=== PATIENT | male | born 1965 | race Caucasian/White ===

== ENCOUNTER → 2016-11-26 | Outpatient (CLI) | payer BC ==
[~2016-11-26] MED LIST: AMLO-114 PO; ASPI-461 PO; CLOP1TAB15 PO; METO100T14 PO; ZNTT/150 PO; ZOLP10TA PO
--- NOTE | 2016-11-26 16:56 | DIAGNOSTIC IMAGING REPORT ---
VENOUS DOPPLER LW EXT BILAT HISTORY: Pain. Edema. BILATERAL CALF PAIN; SWELLING; HX PE COMPARISON STUDY: None. FINDINGS: There is normal compressibility, flow, and augmentation within the bilateral lower extremity deep venous systems. IMPRESSION: No DVT within the right or left lower extremity. The above report was generated using voice recognition software. It may contain grammatical, syntax or spelling errors. Electronically signed by: Lousi Moore M.D. 11/26/2016 4:55 PM Dictated Date/Time: 11/26/2016 4:54 PM
== END | disposition home or self-care (01) ==
LOC: C.ULTR 16:21
PROVIDERS: ATTEND Family Medicine
DX: M79.661 Pain in right lower leg (principal); R10.13 Epigastric pain; R19.8 Other specified symptoms and signs involving the digestive system and abdomen

== ENCOUNTER → 2017-01-06 | Outpatient (CLI) | payer BC ==
--- NOTE | 2017-01-06 08:23 | DIAGNOSTIC IMAGING REPORT ---
ULTRASOUND ABDOMEN COMPLETE CLINICAL HISTORY: Generalized abdominal pain. COMPARISON STUDY: Abdominal ultrasound dated 06/27/2014. TECHNIQUE: Real-time, grayscale, and color flow sonography of the abdomen was performed. Images are reviewed in the transverse and longitudinal planes. FINDINGS: Liver: The liver is top normal in size and demonstrates heterogeneously increased echotexture consistent with hepatic steatosis. Fatty sparing is seen adjacent to gallbladder fossa. There is no intrahepatic biliary ductal dilatation. The main portal vein is patent. Gallbladder: The gallbladder is normal in appearance. No gallstones are identified. There is no gallbladder wall thickening or pericholecystic fluid. A sonographic Martinez's sign is reportedly absent. The common bile duct measures up to 0.5 cm in diameter. Pancreas: Visualized portions of the pancreatic head are normal in appearance. The majority of the pancreas was not well visualized. Spleen: The spleen is normal in size and echotexture, measuring lung 0.9 cm in length. Kidneys: The kidneys are normal in size and echotexture. There is no hydronephrosis. The right kidney measures 12.5 cm in length and the left kidney measures 14.8 cm in length. No shadowing calculi are identified. Abdominal vasculature: Visualized portions of the abdominal aorta are normal in caliber. Ascites: None. IMPRESSION: 1. No acute sonographic abnormality is identified. 2. Hepatic steatosis. Electronically signed by: Terrence Chatman M.D. 01/06/2017 8:22 AM Dictated Date/Time: 01/06/2017 8:20 AM
== END | disposition home or self-care (01) ==
LOC: C.ULTR 06:41
PROVIDERS: ATTEND Family Medicine
DX: R10.13 Epigastric pain (principal); R19.8 Other specified symptoms and signs involving the digestive system and abdomen; K76.0 Fatty (change of) liver, not elsewhere classified

== ENCOUNTER 2017-03-27 12:51 | Observation (INO) | payer BC, OTHER ==
[~2017-03-27] VITALS: Ht 180.3 cm; Wt 114.8 kg
[2017-03-27] MEDS ORDERED: MoRPHine SULFATE 4 MG/ML 1 ML CARP\\VIAL IV STA (13:27)
--- NOTE | 2017-03-27 13:32 | EMERGENCY ROOM VISIT NOTE ---
History First contact with patient: 13:18 Chief Complaint: CARDIAC ASSESSMENT Stated Complaint: CHEST PAIN Nursing Triage Summary: C/o chest pain that started [employer]. Pt was at his PCP with increased CP and URQ pain with palpation. Pt has hx of OK in 2010 with stents placed. Pt reports that he has chronic chest pain. Pt received total of 324mg ASA and 1 Nitro spray. Per EMS pain reduced from 4 to a 2 after the nitro tx. pt reports pain is still at a 2. Pt is alert and oriented. History of Present Illness The patient is a 51 year old male who presents to the Emergency Room via private vehicle accompanied by female with complaints of "chest pain". The patient states that he has had chronic chest pain for many years status post OK. He states that he follows locally with Dr. Whitfield of cardiology. He states that for the past 1-2 weeks the chronic chest pain which is in the left upper quadrant/left inferior chest that radiates to his left scapular region has increased. It is worse with exertion. Today he went to see his family doctor and they referred him here given his history, as well as his additional right upper quadrant abdominal pain. Patient was given full-strength aspirin, and sublingual nitroglycerin which reduced his pain from a 4-2 in transport. He denies any shortness of breath with this. There is no inspiratory chest pain. He did undergo a cardiac catheterization back in November at all to the hospital which was clean as per patient. Review of Systems A complete 10-point Review of Systems was discussed with the patient, with pertinent positives and negatives listed in the History of Present Illness. All remaining Review of Systems questions can be considered negative unless otherwise specified. Past Medical/Surgical History Medical Problems: (1) Benign hypertension (2) Cardiac arrest (3) Cardiac catheterization (4) chest pain rule out (5) Heart disease (6) History of - myocardial infarction (7) Pulmonary embolism (8) Stented coronary artery Family History Cancer Heart disease Hypertension Social History Smoking Status: Never Smoker Alcohol Use: none Drug Use: none Marital Status: Housing Status: lives with family Occupation Status: employed Current/Historical Medications Scheduled Aspirin (Aspirin), 81 MG PO QAM Clopidogrel (Plavix), 75 MG PO QAM Metoprolol Tartrate (Lopressor) (Lopressor), 50 MG PO BID Oxycodone Ir (Roxicodone Ir), 20 MG PO QID Zolpidem Tartrate (Ambien), 10 MG PO HS Physical Exam Vital Signs Date Time Temp Pulse Resp B/P (MAP) Pulse Ox O2 Delivery O2 Flow Rate FiO2 03/27/17 16:51 63 15 98 03/27/17 16:36 63 20 96 03/27/17 16:30 168/111 03/27/17 16:24 63 15 151/96 94 Room Air 03/27/17 16:21 62 16 97 03/27/17 16:06 62 17 96 03/27/17 16:00 151/90 03/27/17 15:51 60 18 96 03/27/17 15:36 59 13 96 03/27/17 15:21 59 16 03/27/17 15:06 63 16 94 03/27/17 15:00 146/100 03/27/17 14:51 63 13 94 03/27/17 14:36 63 18 96 03/27/17 14:30 145/91 03/27/17 14:25 142/91 03/27/17 14:25 61 18 142/91 94 Room Air 03/27/17 13:39 65 18 154/99 95 Room Air 03/27/17 13:36 65 19 94 03/27/17 13:31 154/99 03/27/17 13:21 67 14 95 03/27/17 13:06 67 16 95 03/27/17 13:00 64 03/27/17 13:00 170/98 03/27/17 13:00 36.7 66 20 170/98 94 Room Air 03/27/17 13:00 93 Room Air 03/27/17 12:59 167/93 Physical Exam VITAL SIGNS - Vital signs and nursing notes were reviewed. Stable. GENERAL - 51-year-old male appearing his stated age who is in no acute distress. Communicates well with provider and answers questions appropriately. SKIN - Without rashes. HEAD - NC/AT. EYES - Sclera anicteric. EARS - No deformities of external structures noted on gross examination bilaterally. NOSE - Midline and without cyanosis. No epistaxis or purulent drainage noted. MOUTH/OROPHARYNX - Without perioral cyanosis. NECK - Neck with FROM. Supple to palpation. LUNGS - Chest wall symmetric without accessory muscle use, intercostals retractions, or central cyanosis. Normal vesicular breath sounds CTA B/L. No wheezes, rales, or rhonchi appreciated. CARDIAC - RRR with S1/S2. No murmur, rubs, or gallops appreciated. ABDOMEN - Abdominal contour normal without pulsations or visible masses. BS normoactive all four quadrants. palpable masses, hepatosplenomegaly, or ascites noted. Right upper quadrant tenderness noted. EXTREMITIES - No clubbing or peripheral cyanosis. No pretibial edema present. +5 /5 strength noted in UE/LE bilaterally. NEUROLOGIC - Cranial nerves II through XII grossly intact. PSYCH - A&O, and cooperates fully with examiner. Pt is very pleasant and interacts well with examiner. Medical Decision & Procedures ER Provider Diagnostic Interpretation: CHEST ONE VIEW PORTABLE HISTORY: 51 years-old Male chest pain acute atypical chest pain COMPARISON: Portable chest radiograph 12/24/2015 TECHNIQUE: Portable AP view of the chest FINDINGS: Cardiomediastinal and hilar silhouettes are within normal limits. No pneumothorax, pleural effusion, focal airspace consolidation or overt pulmonary edema. Bones of the chest appear grossly intact. Fusion hardware of the lower cervical spine. Degenerative changes are seen within the shoulders. IMPRESSION: No acute process. The above report was generated using voice recognition software. It may contain grammatical, syntax or spelling errors. Electronically signed by: Tanvir Umaña M.D. 03/27/2017 1:52 PM Dictated Date/Time: 03/27/2017 1:50 PM ABDOMINAL ULTRASOUND, RIGHT UPPER QUADRANT HISTORY: Atypical chest pain. COMPARISON: Abdominal ultrasound 06/27/2014. FINDINGS: Pancreas: The pancreas demonstrates a normal echotexture. Liver: The liver is echogenic consistent with fatty change. Gallbladder: No gallbladder wall thickening. No gallstones. CBD: 5 mm. Right kidney: No hydronephrosis. IMPRESSION: 1. Hepatic steatosis. 2. Normal gallbladder. No gallstones. Electronically signed by: Walt Luna M.D. 03/27/2017 2:12 PM Dictated Date/Time: 03/27/2017 2:11 PM Laboratory Results 03/27/17 15:21 Red Blood Count 4.86, Mean Corpuscular Volume 88.9, Mean Corpuscular Hemoglobin 31.7, Mean Corpuscular Hemoglobin Concent 35.6, Mean Platelet Volume 10.2, Neutrophils (%) (Auto) 69.2, Lymphocytes (%) (Auto) 19.0, Monocytes (%) (Auto) 8.1, Eosinophils (%) (Auto) 2.8, Basophils (%) (Auto) 0.4, Neutrophils # (Auto) 6.66, Lymphocytes # (Auto) 1.83, Monocytes # (Auto) 0.78, Eosinophils # (Auto) 0.27, Basophils # (Auto) 0.04 03/27/17 15:21 Test 03/27/17 12:45 03/27/17 15:21 Prothrombin Time 10.8 SECONDS (9.0-12.0) Prothromb Time International Ratio 1.0 (0.9-1.1) Activated Partial Thromboplast Time 24.3 SECONDS (21.0-31.0) Partial Thromboplastin Ratio 0.9 White Blood Count 9.63 K/uL (4.8-10.8) Red Blood Count 4.86 M/uL (4.7-6.1) Hemoglobin 15.4 g/dL (14.0-18.0) Hematocrit 43.2 % (42-52) Mean Corpuscular Volume 88.9 fL (80-100) Mean Corpuscular Hemoglobin 31.7 pg (25-34) Mean Corpuscular Hemoglobin Concent 35.6 g/dl (32-36) Platelet Count 217 K/uL (130-400) Mean Platelet Volume 10.2 fL (7.4-10.4) Neutrophils (%) (Auto) 69.2 % Lymphocytes (%) (Auto) 19.0 % Monocytes (%) (Auto) 8.1 % Eosinophils (%) (Auto) 2.8 % Basophils (%) (Auto) 0.4 % Neutrophils # (Auto) 6.66 K/uL (1.4-6.5) Lymphocytes # (Auto) 1.83 K/uL (1.2-3.4) Monocytes # (Auto) 0.78 K/uL (0.11-0.59) Eosinophils # (Auto) 0.27 K/uL (0-0.5) Basophils # (Auto) 0.04 K/uL (0-0.2) RDW Standard Deviation 43.3 fL (36.4-46.3) RDW Coefficient of Variation 13.4 % (11.5-14.5) Immature Granulocyte % (Auto) 0.5 % Immature Granulocyte # (Auto) 0.05 K/uL (0.00-0.02) D-Dimer 230 ug/L FEU (0-500) Anion Gap 8.0 mmol/L (3-11) Est Creatinine Clear Calc Drug Dose 129.9 ml/min Estimated GFR () 115.8 Estimated GFR (Non- 99.9 BUN/Creatinine Ratio 15.1 (10-20) Calcium Level 8.9 mg/dl (8.5-10.1) Magnesium Level 2.3 mg/dl (1.8-2.4) Total Bilirubin 0.5 mg/dl (0.2-1) Aspartate Amino Transf (AST/SGOT) 26 U/L (15-37) Alanine Aminotransferase (ALT/SGPT) 51 U/L (12-78) Alkaline Phosphatase 90 U/L (45-117) Total Creatine Kinase 95 U/L (39-308) Creatine Kinase MB 1.1 ng/ml (0.5-3.6) Creatine Kinase MB Ratio 1.2 (0-3.0) Total Protein 7.0 gm/dl (6.4-8.2) Albumin 3.8 gm/dl (3.4-5.0) Globulin 3.2 gm/dl (2.5-4.0) Albumin/Globulin Ratio 1.2 (0.9-2) Lipase 134 U/L (73-393) Thyroid Stimulating Hormone (TSH) 1.300 uIu/ml (0.300-4.500) Medications Administered Medications (Trade) Dose Ordered Sig/Marin Route Start Time Stop Time Status Last Admin Dose Admin Morphine Sulfate (MoRPHine SULFATE INJ) 4 mg NOW STAT IV 03/27/17 13:27 03/27/17 13:29 DC 03/27/17 13:37 4 MG Acetaminophen (Tylenol Tab) 650 mg Q4H PRN PO 03/27/17 16:30 04/26/17 16:29 03/27/17 20:41 650 MG Medical Decision Patient was seen and evaluated as above. He presents to us today with a significant cardiac history. He is here with chest pain. Bedside EKG per my interpretation reveals normal sinus rhythm. There is no ectopy or ischemic change. Troponin initially negative. Chest x-ray normal. Blood work reveals no acute process. I believe that further evaluation in the inpatient setting to rule out his chest pain would be appropriate. He had nitro in route which improved his pain. It is somewhat exertional chest pain. He has had asa today and received morphine here. Please refer to further documentation regarding her stay. In evaluation treatment this patient following differential diagnoses were entertained: OK, PE, among others. Impression Primary Impression: Chest pain Departure Information Referrals Elias Lee D.O. (PCP) Patient Instructions [facility]
--- NOTE | 2017-03-27 13:53 | DIAGNOSTIC IMAGING REPORT ---
CHEST ONE VIEW PORTABLE HISTORY: 51 years-old Male chest pain acute atypical chest pain COMPARISON: Portable chest radiograph 12/24/2015 TECHNIQUE: Portable AP view of the chest FINDINGS: Cardiomediastinal and hilar silhouettes are within normal limits. No pneumothorax, pleural effusion, focal airspace consolidation or overt pulmonary edema. Bones of the chest appear grossly intact. Fusion hardware of the lower cervical spine. Degenerative changes are seen within the shoulders. IMPRESSION: No acute process. The above report was generated using voice recognition software. It may contain grammatical, syntax or spelling errors. Electronically signed by: Tanvir Umaña M.D. 03/27/2017 1:52 PM Dictated Date/Time: 03/27/2017 1:50 PM
--- NOTE | 2017-03-27 14:14 | DIAGNOSTIC IMAGING REPORT ---
ABDOMINAL ULTRASOUND, RIGHT UPPER QUADRANT HISTORY: Atypical chest pain. COMPARISON: Abdominal ultrasound 06/27/2014. FINDINGS: Pancreas: The pancreas demonstrates a normal echotexture. Liver: The liver is echogenic consistent with fatty change. Gallbladder: No gallbladder wall thickening. No gallstones. CBD: 5 mm. Right kidney: No hydronephrosis. IMPRESSION: 1. Hepatic steatosis. 2. Normal gallbladder. No gallstones. Electronically signed by: Walt Luna M.D. 03/27/2017 2:12 PM Dictated Date/Time: 03/27/2017 2:11 PM
[2017-03-27 15:11] LABS: PTT PATIENT 24.3 SECONDS (21.0-31.0)
[2017-03-27 15:33] LABS: BASO % 0.4 %; BASO ABS # 0.04 K/uL (0-0.2); EOS % 2.8 %; EOS ABS # 0.27 K/uL (0-0.5); HEMATOCRIT 43.2 % (42-52); HEMOGLOBIN 15.4 g/dL (14.0-18.0); IG# 0.05 K/uL (0.00-0.02); LYMPH ABS # 1.83 K/uL (1.2-3.4); MEAN CELL VOLUME 88.9 fL (80-100); MEAN CORPUSCULAR HEMOGLOBIN 31.7 pg (25-34); MEAN CORPUSCULAR HGB CONC 35.6 g/dl (32-36); MEAN PLATELET VOLUME 10.2 fL (7.4-10.4); MONO % 8.1 %; MONO ABS # 0.78 K/uL (0.11-0.59); NEUT % 69.2 %; NEUT ABS # 6.66 K/uL (1.4-6.5); PLATELET COUNT 217 K/uL (130-400); RED CELL DISTRIBUTION WIDTH CV 13.4 % (11.5-14.5); RED CELL DISTRIBUTION WIDTH SD 43.3 fL (36.4-46.3); WHITE BLOOD COUNT 9.63 K/uL (4.8-10.8)
[2017-03-27 15:49] LABS: ALBUMIN 3.8 gm/dl (3.4-5.0); BLOOD UREA NITROGEN 13 mg/dl (7-18); CALCIUM 8.9 mg/dl (8.5-10.1); CARBON DIOXIDE 24 mmol/L (21-32); CREATININE 0.87 mg/dl (0.60-1.40); GLUCOSE 118 mg/dl (70-99); LIPASE 134 U/L (73-393); POTASSIUM 4.2 mmol/L (3.5-5.1); SODIUM 137 mmol/L (136-145)
[2017-03-27 16:00] LABS: ALKALINE PHOSPHATASE 90 U/L (45-117); ALT/SGPT 51 U/L (12-78); AST/SGOT 26 U/L (15-37); CKMB 1.1 ng/ml (0.5-3.6)
[2017-03-27] MEDS ORDERED: OXYC20TA50 PO (16:18)
[2017-03-27] MEDS ORDERED: METO50TA16 PO (16:18)
[2017-03-27] MEDS ORDERED: ACETAMINOPHEN 325 MG TAB PO PRN (16:30)
[2017-03-27] MEDS ORDERED: ONDANSETRON INJ 2 MG/ML 2 ML VIAL IV PRN (16:30)
[2017-03-27 17:01] VITALS: O2SAT 94; Ht 180.3 cm; Wt 114.8 kg
--- NOTE | 2017-03-27 17:35 | History and Physical ---
History & Physical Date & Time of Service: Mar 27, 2017 at 17:07 Chief Complaint: Chest Pain Primary Care Physician: No Doctor, Assigned History of Present Illness Source: patient, family, hospital records 51 yo male with a history of CAD with h/o AR and cardiac stent, most recent intervention in 2010, presents with ongoing chest pain, epigastric pain. The patient has a long history of non-compliance and poor life style choices. He was admitted in December 2015 for similar presentation with chest pain, he had a negative dobutamine stress test at that time with 81% predicted maximum heart rate. EF was noted to be 55-60%. He was prescribed Lipitor 80mg daily for his dyslipidemia but he has not been taking this medication. He cannot give a good reason, just that he is not good at remembering to take medications. However, he takes his Lopressor, aspirin, Plavix and oxycodone as prescribed. 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 Mir, for a long time, he cannot give a good reason. He says that his chest pain is every day, although it does seem to be gone in the morning and then is worse during the day. Described as a pressure. He does not notice an increase in pain on exertion. However, unsure of how much the patient exerts himself, he does not get regular exercise. He feels that it may be GI related and he takes Margarita seltzer every day, although he gets no pain relief from this, just a lot of gas. He takes Rolaids as well with no relief. He had a GI work up with [facility] that included an EGD over the summer that was reportedly normal, no evidence of any ulcers. At it's worst the pain is 6 out of 10, today it was a 4 out of 10, improved to a 2 out of 10 with nitroglycerin. Sometimes the pain is associated with some diaphoresis. No nausea, no dyspnea. The pain will radiate to his left shoulder and back. In the ED his BP was elevated at 160/110, HR in the 60's, EKG normal, troponin negative and CXR normal. D dimer normal at 230. Past Medical/Surgical History Medical Problems: (1) Benign hypertension Status: Chronic (2) Cardiac arrest Status: Resolved (3) Cardiac catheterization Status: Resolved (4) Heart disease Status: Chronic (5) History of - myocardial infarction Status: Resolved (6) Pulmonary embolism Status: Resolved (7) Stented coronary artery Status: Resolved Family History Cancer Heart disease Hypertension Social History Smoking Status: Never Smoker Drug Use: none Marital Status: Housing status: lives with family Occupational Status: employed Immunizations History of Influenza Vaccine: Unknown History of Tetanus Vaccine?: Unknown Tetanus Immunization Date: Aug 08, 2009 History of Pneumococcal: Unknown History of Hepatitis B Vaccine: Unknown Allergies Coded Allergies: Shellfish (Verified Allergy, Severe, THROAT SWELLS, 03/27/17) Tramadol (Verified Allergy, Severe, HIVES, 03/27/17) SEIZURES Home Medications Scheduled Aspirin (Aspirin), 81 MG PO QAM Clopidogrel (Plavix), 75 MG PO QAM Metoprolol Tartrate (Lopressor) (Lopressor), 50 MG PO BID Oxycodone Hcl (Oxycontin), 20 MG PO QID Zolpidem Tartrate (Ambien), 10 MG PO HS Review of Systems Constitutional: + sweats, No fever, No chills, No weight loss, No weakness, No fatigue, No problem reported Eyes: No worsening of vision, No eye pain, No redness, No discharge, No diplopia, No problem reported ENT: No hearing loss, No unusual epistaxis, No nasal symptoms, No sore throat, No tinnitus, No dental problems, No trouble swallowing, No problem reported Respiratory: No cough, No sputum, No wheezing, No shortness of breath, No dyspnea on exertion, No dyspnea at rest, No hemoptysis, No problem reported Cardiovascular: + chest pain, No orthopnea, No PND, No edema, No claudication, No palpitations, No problem reported Abdomen: No pain, No nausea, No vomiting, No diarrhea, No constipation, No GI bleeding, No problem reported Musculoskeletal: No joint pain, No muscle pain, No swelling, No calf pain, No problem reported Genitourinary - Male: No hematuria, No dysuria, No urinary frequency, No urinary urgency Neurologic: No memory loss, No paralysis, No weakness, No numbness/tingling, No vertigo, No balance problems, No problem reported Psychiatric: No depression symptoms, No anhedonism, No anxiety, No insomnia, No substance abuse, No problem reported Endocrine: No fatigue, No excessive thirst, No excessive urination, No problem reported Hematologic / Lymphatic: No abnormal bleeding/bruising, No clotting problems, No swollen lymph nodes, No night sweats, No problem reported Integumentary: No rash, No itch, No new/changing skin lesions, No color change , No bleeding, No problem reported Allergic / Immunologic: No environmental allergies, No seasonal allergies, No pet sensitivities, No food allergies, No hives, No frequent infections, No poor healing, No prolonged convalescence, No problem reported Physical Exam Vital Signs Date Time Temp Pulse Resp B/P (MAP) Pulse Ox O2 Delivery O2 Flow Rate FiO2 03/27/17 16:24 63 15 151/96 94 Room Air 03/27/17 14:25 61 18 142/91 94 Room Air 03/27/17 13:39 65 18 154/99 95 Room Air 03/27/17 13:00 64 03/27/17 13:00 36.7 66 20 170/98 94 Room Air 03/27/17 13:00 93 Room Air General Appearance: no apparent distress, + obese Head: normocephalic, atraumatic Eyes: normal inspection, EOMI, sclerae normal ENT: normal ENT inspection, hearing grossly normal, pharynx normal Neck: supple, no adenopathy, no JVD, trachea midline Respiratory/Chest: chest non-tender, lungs clear, normal breath sounds, no respiratory distress, no accessory muscle use Cardiovascular: regular rate, rhythm, no edema, no gallop, no JVD, no murmur, normal peripheral pulses Abdomen/GI: normal bowel sounds, non tender, soft, no organomegaly Back: normal inspection, no CVA tenderness, no muscle spasm, normal range of motion Extremities/Musculoskelatal: normal inspection, no calf tenderness, normal capillary refill, no pedal edema, normal range of motion, pelvis stable Neurologic/Psych: primary teaching assistant II-XII nml as tested, no motor/sensory deficits, alert, normal mood/affect, normal reflexes, oriented x 3 Skin: normal color, warm/dry, no rash Lymphatic: no adenopathy Diagnostics Laboratory Results Results Past 24 Hours Test 03/27/17 12:45 03/27/17 15:21 Range/Units Prothrombin Time 10.8 9.0-12.0 SECONDS Prothromb Time International Ratio 1.0 0.9-1.1 Activated Partial Thromboplast Time 24.3 21.0-31.0 SECONDS Partial Thromboplastin Ratio 0.9 White Blood Count 9.63 4.8-10.8 K/uL Red Blood Count 4.86 4.7-6.1 M/uL Hemoglobin 15.4 14.0-18.0 g/dL Hematocrit 43.2 42-52 % Mean Corpuscular Volume 88.9 80-100 fL Mean Corpuscular Hemoglobin 31.7 25-34 pg Mean Corpuscular Hemoglobin Concent 35.6 32-36 g/dl Platelet Count 217 130-400 K/uL Mean Platelet Volume 10.2 7.4-10.4 fL Neutrophils (%) (Auto) 69.2 % Lymphocytes (%) (Auto) 19.0 % Monocytes (%) (Auto) 8.1 % Eosinophils (%) (Auto) 2.8 % Basophils (%) (Auto) 0.4 % Neutrophils # (Auto) 6.66 1.4-6.5 K/uL Lymphocytes # (Auto) 1.83 1.2-3.4 K/uL Monocytes # (Auto) 0.78 0.11-0.59 K/uL Eosinophils # (Auto) 0.27 0-0.5 K/uL Basophils # (Auto) 0.04 0-0.2 K/uL RDW Standard Deviation 43.3 36.4-46.3 fL RDW Coefficient of Variation 13.4 11.5-14.5 % Immature Granulocyte % (Auto) 0.5 % Immature Granulocyte # (Auto) 0.05 0.00-0.02 K/uL D-Dimer 230 0-500 ug/L FEU Sodium Level 137 136-145 mmol/L Potassium Level 4.2 3.5-5.1 mmol/L Chloride Level 104 98-107 mmol/L Carbon Dioxide Level 24 21-32 mmol/L Anion Gap 8.0 3-11 mmol/L Blood Urea Nitrogen 13 7-18 mg/dl Creatinine 0.87 0.60-1.40 mg/dl Est Creatinine Clear Calc Drug Dose 129.9 ml/min Estimated GFR () 115.8 Estimated GFR (Non- 99.9 BUN/Creatinine Ratio 15.1 10-20 Random Glucose 118 70-99 mg/dl Calcium Level 8.9 8.5-10.1 mg/dl Magnesium Level 2.3 1.8-2.4 mg/dl Total Bilirubin 0.5 0.2-1 mg/dl Aspartate Amino Transf (AST/SGOT) 26 15-37 U/L Alanine Aminotransferase (ALT/SGPT) 51 12-78 U/L Alkaline Phosphatase 90 45-117 U/L Total Creatine Kinase 95 39-308 U/L Creatine Kinase MB 1.1 0.5-3.6 ng/ml Creatine Kinase MB Ratio 1.2 0-3.0 Troponin I < 0.015 0-0.045 ng/ml Total Protein 7.0 6.4-8.2 gm/dl Albumin 3.8 3.4-5.0 gm/dl Globulin 3.2 2.5-4.0 gm/dl Albumin/Globulin Ratio 1.2 0.9-2 Lipase 134 73-393 U/L Thyroid Stimulating Hormone (TSH) 1.300 0.300-4.500 uIu/ml CXR normal Normal EKG Impression Assessment and Plan 51 yo male with chronic chest pain, h/o AR and stents, here with worsening chest pain - Chest pain, epigastric pain unclear etiology, certainly could be chronic angina, do not feel he has unstable angina at this time will observe on tele, cycle enzymes, repeat EKG in the AM ask Dr. Mir for recommendations asked patient if he had taken Ranexa before, he thinks he might have, could have had a side effect? could consider non-cardiac cause such as GERD, PUD had a normal EGD in 2017 when he had similar symptoms, GB ultrasound here was normal was previously on Zantac and PPI but told to stop by GI when EGD was normal - HTN: poorly controlled, says he used to take two BP medications but was reduced to just Lopressor he says he felt better on two BP medications will give Lisinopril 20mg now, follow pressures should likely be discharged on Lopressor plus a second agent, close PCP follow up - Dyslipidemia: markedly elevated total cholesterol and triglycerides in the past non-compliant with statin therapy will check lipid panel in the AM with direct LDL since calculated LDL has been inaccurate in the past - h/o CAD with stenting: continue aspirin and Plavix - h/o PE: d dimer normal at 230 Level of Care Telemetry Resuscitation Status FULL RESUSCITATION VTE Prophylaxis VTE Risk Assessment Done? Y/N: Yes Risk Level: Low Given or contraindicated: Enoxaparin (Lovenox)SQ Additional Copies To Elias Lee D.O.; Moses Mir, DO
[2017-03-27 17:51] VITALS: O2SAT 97
[2017-03-27] MEDS ORDERED: LISINOPRIL 20 MG TAB PO STA (18:38)
[2017-03-27 19:30] VITALS: BP_SYST 163; BP_SYST 169; BP_DIAS 112; BP_DIAS 96; PULSE 57; TEMP 36.8; O2SAT 97
[2017-03-27] MEDS ORDERED: IV FLUIDS COMPLETED PRN (20:30)
[2017-03-27] MEDS: METOPROLOL TARTRATE 50 MG TAB PO SCH (20:36)
[2017-03-27] MEDS: ZOLPIDEM TARTRATE 10 MG TAB PO SCH ×2 (21:00→23:45)
[2017-03-27 22:01] VITALS: BP 155/90
[2017-03-27] MEDS ORDERED: OXYC1TAB3 PO (22:38)
[2017-03-27] MEDS: OXYCODONE HCL IR 5 MG TAB (IMMEDIATE RELEASE) PO SCH (23:45)
[2017-03-27 23:48] VITALS: BP 157/94; PULSE 58; TEMP 36.7; O2SAT 96
[2017-03-28 05:09] VITALS: BP 125/86; PULSE 56; TEMP 36.4; O2SAT 96
[2017-03-28 06:50] LABS: CHOLESTEROL 217 mg/dl (0-200); LDL CHOLESTEROL (DIRECT) 132 mg/dl
[2017-03-28 07:37] VITALS: BP 132/83; PULSE 58; TEMP 36.7; O2SAT 95
[2017-03-28] MEDS: OXYCODONE HCL IR 5 MG TAB (IMMEDIATE RELEASE) PO SCH ×3 (08:00→13:05)
[2017-03-28] MEDS: METOPROLOL TARTRATE 50 MG TAB PO SCH (08:20)
[2017-03-28] MEDS ORDERED: ENOXAPARIN 40 MG/0.4 ML SYR SQ SCH (09:00)
[2017-03-28] MEDS ORDERED: LISINOPRIL 20 MG TAB PO SCH (09:00)
[2017-03-28] MEDS ORDERED: CLOPIDOGREL BISULFATE 75 MG TAB PO SCH (09:00)
[2017-03-28] MEDS ORDERED: ASPIRIN 81 MG ECTAB PO SCH (09:00)
[2017-03-28] MEDS ORDERED: SUCRALFATE 1 GM/10 ML UDC PO ONE (09:59)
[2017-03-28] MEDS ORDERED: LSN20 PO (10:05)
[2017-03-28] MEDS ORDERED: SUCR1TAB29 PO (10:06)
--- NOTE | 2017-03-28 10:20 | CARDIOLOGY CONSULTATION ---
DATE OF CONSULTATION: 03/28/2017 DATE OF CONSULTATION: 03/28/2017 REQUESTING: Be Lewis. MELTER ASSISTANT: Moses Mir DO, [facility] Cardiology. REASON FOR CONSULTATION: Chest discomfort, epigastric discomfort in a patient with coronary artery disease. HISTORY OF PRESENT ILLNESS: Kareem was admitted to the hospital with what he describes as epigastric and left upper quadrant discomfort. It has been relatively constant. He does note if he takes Tums or Rolaids or Maalox that he belches a lot and it does improve slightly. It does not completely go away. It is not made worse with activity. There is no radiation to his neck, jaw, back or arm. He is not diaphoretic with it. He notes a little bit of nauseousness associated with it. Denies any presyncope, syncope, palpitations, lightheadedness, dizziness, lower extremity edema or symptoms of claudication. Denies any fevers, chills, sweats, cough, productive sputum. His appetite and weight have been stable. He does note that eating makes it better and then about 30 minutes to an hour after he eats it tends to get worse. It also sounds like he eats foods that is spicy including wing and hamburgers and other foods that is not heart healthy nor appropriate for esophageal reflux disease. He notes he had similar discomfort in November of last year, he was admitted to [facility] where he underwent cardiac catheterization which according to him revealed that his stents were patent and there was no significant change from his prior catheterization (catheterization by Gurvinder Sorensen) and subsequently underwent endoscopy by Dr. Shoemaker for which there were no significant abnormalities according to the patient. The rest of review of systems otherwise negative. PAST MEDICAL HISTORY: 1. Chronic chest pain syndrome thought to be noncardiac in etiology. 2. Coronary artery disease status post T stenting involving the LAD and diagonal in [place] in 2006. 3. Late stent thrombosis of the LAD diagonal 01/20/2012 with initially placed first generation Cypher drug-eluting stent. 4. Cardiac arrest x2 at the time of his NH January 2012. 5. Placement of a Xience drug-eluting stent in D1 with a patent LAD stent January 2012 and according to the patient again November 2016. 6. Negative stress test for ischemia May 2013 and again December 2015. 7. Negative EGD. 8. GERD. SOCIAL HISTORY: Stopped smoking January 2012, having smoked half a pack to a pack of cigarettes a day for 20 years. Denies any alcohol. He is . 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 ALLERGIES: SHELLFISH, BEATRICE INHIBITORS caused a cough, Benicar caused muscle cramps. MEDICATIONS: Reviewed in electronic medical record. FAMILY HISTORY: Dad of cancer. Mom of cancer. Has a brother who of a drug overdose. PHYSICAL EXAMINATION: GENERAL: He is awake, alert, oriented x3. He is in no acute distress. She is a well-appearing male who looks older than his stated age. VITAL SIGNS: Heart rate 58, respirations 18, blood pressure 132/83, sat 95% on room air. HEAD, EYES, EARS, NOSE, AND THROAT: 2+ carotid upstrokes. No evidence of carotid bruits. Jugular venous pressure appeared normal. Sclerae is anicteric. Hearing is normal. LUNGS: Clear to auscultation bilaterally. No rales, rhonchi or wheezing. HEART: Regular rate and rhythm. No appreciable murmurs, rubs or gallops. ABDOMEN: Soft, nontender, nondistended. Positive bowel sounds. EXTREMITIES: No clubbing, cyanosis or edema. PSYCHIATRIC: His affect appeared appropriate. Two EKGs here normal sinus rhythm. Normal ECG. LABORATORY STUDIES: His troponins are negative x3. His complete metabolic profile was normal. His lipase was normal. His triglycerides are 316, total cholesterol 217, LDL 132. His HDL was 37. His CBC was normal. Coags are normal. Chest x-ray no active disease. Ultrasound of his gallbladder was negative. IMPRESSIONS: Noncardiac chest pain which sounds more like esophageal reflux disease. It is not worse with activity and it has been relatively constant. One would expect if he is having progressive anginal symptoms that he should spill troponin at this point and have an abnormal EKG. Additionally, he underwent cardiac catheterization in November 2016 at [facility] for similar symptoms and according to the patient his stents were patent. In addition, his symptoms get better with eating and then get worse than 30 minutes to an hour later, which is consistent with triggering acid excretion into his stomach. As was discussed with the hospitalist service, I would reinitiate his Protonix 40 mg daily and add Zantac 150 mg b.i.d. He may need a followup with GI to consider a pH probe. With regards to cardiovascular his known coronary disease and cardiovascular risk he needs aggressive risk factor modification including aspirin and beta blockers. According to my note BEATRICE inhibitors caused a cough and Benicar caused muscle cramps. If that is the case, I would stop his inpatient lisinopril and switch him over to amlodipine in addition to his beta blockers. His LDL is elevated, he needs a statin therapy. I asked him why he does not take a statin, he describes it as forgetting to take it and that he had a single episode where he had some GI distress after taking it which may have been unrelated. Based on the guidelines, he should either be on 80 mg of Lipitor to 20-40 mg of Crestor. He does not need acute followup with cardiology, but he does need long-term followup, whether that is with myself or Dr. Sorensen who is currently in [place]. All this was discussed with the hospitalist service. I do not feel that he needs any additional cardiac testing.
[2017-03-28 11:51] VITALS: BP 145/90; PULSE 58; TEMP 36.5; O2SAT 96
[2017-03-28] MEDS ORDERED: SUCRALFATE 1 GM/10 ML UDC PO SCH (13:00)
[2017-03-28] MEDS ORDERED: NRV5 PO (14:33)
[2017-03-28] MEDS ORDERED: PANT40TA PO (14:33)
[2017-03-28] MEDS ORDERED: RANI150T3 PO (14:33)
[2017-03-28] MEDS ORDERED: ATOR80TA PO (14:33)
--- NOTE | 2017-03-28 14:41 | Discharge Instructions ---
Discharge Instructions Date of Service Mar 28, 2017. Admission Reason for Admission: Chest Pain Discharge Discharge Diagnosis / Problem: Chest Pain Discharge Goals Goal(s): Decrease discomfort, Improve function, Increase independence Activity Recommendations Activity Limitations: resume your previous activity . Instructions / Follow-Up Instructions / Follow-Up Chest Pain: - Your cardiac enzymes were unremarkable which suggests this is not an acute coronary issue - With your cardiac catheterization recently there is not an indication to perform this again at this time - This may be related to your GI symptoms and will give the following prescriptions -- Protonix 40 mg daily and Zantac 150 mg twice a day -- Carafate 1 g four times a day (with meals and at bedtime) - you can trial this and see if it helps High Blood Pressure: - Will treat with Amlodipine 5 mg daily and this will likely need titrated up pending on your response to this medication - Continue your Lopressor as previously prescribed High Cholesterol and Coronary Artery Disease: - It is important to be on a statin medication - this helps reduce cholesterol and prevent plaque formation in your vessels - A prescription will be sent for Lipitor 80 mg daily Follow-Up: - Please follow with your family doctor and discuss these medications with them , they may need to make adjustments as necessary Current Hospital Diet Patient's current hospital diet: AHA Diet (Heart Healthy) Discharge Diet Recommended Diet: AHA Diet (Heart Healthy) Pending Studies Studies pending at discharge: no Laboratory Results Lipid Panel Test 03/28/17 05:50 Range/Units Triglycerides Level 316 H 0-150 mg/dl Cholesterol Level 217 H 0-200 mg/dl HDL Cholesterol 37 mg/dl LDL Cholesterol Direct 132 mg/dl Cholesterol/HDL Ratio 5.9 LDL Cholesterol, Calculated mg/dl Medical Emergencies . Who to Call and When: Medical Emergencies: If at any time you feel your situation is an emergency, please call 911 immediately. . Non-Emergent Contact Non-Emergency issues call your: Primary Care Provider Call Non-Emergent contact if: you have a fever, your pain is concerning you, you have any medication questions . . "Provider Documentation" section prepared by Sridevi Gallo. . VTE Core Measure Inpt VTE Proph given/why not?: Enoxaparin (Lovenox)SQ
[2017-03-28 15:32] VITALS: BP 145/90; PULSE 58; TEMP 36.5; O2SAT 96
--- NOTE | 2017-03-28 19:04 | Discharge Summary ---
Discharge Summary Date of Service Mar 28, 2017. Discharge Summary Admission Date: Mar 27, 2017 at 16:56 Discharge Date: Mar 28, 2017 Discharge Disposition: Home Principal Diagnosis: Chest Pain Problems/Secondary Diagnoses: 1. CAD S/P [place] with PCI 2. HLD 3. GERD Immunizations: Have You Had Influenza Vaccine: Unknown History of Tetanus Vaccine?: Unknown Tetanus Immunization Date: Aug 08, 2009 History of Pneumococcal: Unknown History of Hepatitis B Vaccine: Unknown Procedures: ABDOMINAL ULTRASOUND, RIGHT UPPER QUADRANT FINDINGS: Pancreas: The pancreas demonstrates a normal echotexture. Liver: The liver is echogenic consistent with fatty change. Gallbladder: No gallbladder wall thickening. No gallstones. CBD: 5 mm. Right kidney: No hydronephrosis. IMPRESSION: 1. Hepatic steatosis. 2. Normal gallbladder. No gallstones. Consultations: 1. Cardiology - Dr. Mir Medication Reconciliation New Medications: Amlodipine Besylate (Amlodipine Besylate) 5 Mg Tab 5 MG PO DAILY for 30 Days, #30 TAB Atorvastatin (Lipitor) 80 Mg Tab 80 MG PO DAILY for 30 Days, #30 TAB Pantoprazole Sodium (Protonix) 40 Mg Tab 40 MG PO DAILY for 30 Days, #30 TAB Ranitidine Hcl (Zantac) 150 Mg Tab 1 TAB PO BID for 30 Days, #60 TAB Sucralfate (Carafate) 1 Gm Tab 1 TAB PO QID for 14 Days, #56 TAB With meals and at bedtime Continued Medications: Aspirin (Aspirin) 81 Mg Tab 81 MG PO QAM Clopidogrel (Plavix) 75 Mg Tab 75 MG PO QAM Metoprolol Tartrate (Lopressor) (Lopressor) 50 Mg Tab 50 MG PO BID, TAB Oxycodone Ir (Roxicodone Ir) 5 Mg Tab 20 MG PO QID, TAB Zolpidem Tartrate (Ambien) 10 Mg Tab 10 MG PO HS, TAB Discharge Exam Review of Systems: Constitutional: No fever, No chills Respiratory: No cough, No shortness of breath Cardiovascular: No chest pain, No palpitations Abdomen: No pain, No nausea, No vomiting, No diarrhea, No constipation, No GI bleeding Musculoskeletal: No swelling, No calf pain Genitourinary - Male: No dysuria Hematologic / Lymphatic: No abnormal bleeding/bruising Physical Exam: General Appearance: WD/WN, no apparent distress Eyes: sclerae normal ENT: hearing grossly normal Neck: supple, no JVD, trachea midline Respiratory/Chest: lungs clear, normal breath sounds, no respiratory distress, no accessory muscle use Cardiovascular: regular rate, rhythm, no gallop, no murmur Abdomen / GI: normal bowel sounds, non tender, soft Extremities: no pedal edema Neurologic/Psychiatric: alert, oriented x 3 Skin: normal color, warm/dry Hospital Course ADMISSION: 51 yo male with a history of CAD with h/o KS and cardiac stent, most recent intervention in 2010, presents with ongoing chest pain, epigastric pain. The patient has a long history of non-compliance and poor life style choices. He was admitted in December 2015 for similar presentation with chest pain, he had a negative dobutamine stress test at that time with 81% predicted maximum heart rate. EF was noted to be 55-60%. He was prescribed Lipitor 80mg daily for his dyslipidemia but he has not been taking this medication. He cannot give a good reason, just that he is not good at remembering to take medications. However, he takes his Lopressor, aspirin, Plavix and oxycodone as prescribed. He has not followed up with his primary caddy packer, Dr. Mir, for a long time, he cannot give a good reason. He says that his chest pain is every day, although it does seem to be gone in the morning and then is worse during the day. Described as a pressure. He does not notice an increase in pain on exertion. However, unsure of how much the patient exerts himself, he does not get regular exercise. He feels that it may be GI related and he takes Margarita seltzer every day, although he gets no pain relief from this, just a lot of gas. He takes Rolaids as well with no relief. He had a GI work up with [facility] that included an EGD over the summer that was reportedly normal, no evidence of any ulcers. At it's worst the pain is 6 out of 10, today it was a 4 out of 10, improved to a 2 out of 10 with nitroglycerin. Sometimes the pain is associated with some diaphoresis. No nausea, no dyspnea. The pain will radiate to his left shoulder and back. In the ED his BP was elevated at 160/110, HR in the 60's, EKG normal, troponin negative and CXR normal. D dimer normal at 230. HOSPITAL COURSE: Mr. Guan was admitted for chronic ongoing CP/Epigastric Pain that likely favors GI. Chest Pain with known H/O CAD/KS and HTN: - Questioned chronic angina however not quite fitting and could favor more of a GI component - states pain can be relieved with eating but can exacerbate 30-60 minutes after eating - has had EGD which was unremarkable - Cardiac enzymes obtained and negative; telemetry monitoring with NSR and sinus dulce - Dr. Mir was consulted and no further interventions necessary; patient did have a cardiac catheterization in [place] that is reported normal; recommended possible GI F/U - Resume Protonix 40 mg daily and Ranitidine 150 mg BID and can discuss with GI or PCP on continuation; consideration for pH probe with GI - Will give trial of Carafate 1 g QID with meals and bedtime to see if this helps - Large element of noncompliance between medication, lack of exercise, and diet - In-hospital Lisinopril was added with good response to BP however reports show he did have a cough with this in the past- will D/C with Rx for Amlodipine 5 mg daily and likely will need titrated up - Gave an Rx for Atorvastatin 80 mg daily - patient states he just would forget to take this medication, didn't report muscle aches or adverse effects; triglycerides and cholesterol are elevated Total Time Spent: Greater than 30 minutes This includes examination of the patient, discharge planning, medication reconciliation, and communication with other providers. Discharge Instructions Please refer to the electronic Patient Visit Report (Discharge Instructions) for additional information. Additional Copies To Bartolo Pina MD
== END 2017-03-28 15:54 | disposition home or self-care (01) ==
LOC: EDBD 12:51 → C.EDC 12:52 → C.MED 16:56 → ENRESERV 17:30
PROVIDERS: ADMIT Internal Medicine; ATTEND Internal Medicine
DX: R07.9 Chest pain, unspecified (principal); I25.10 Atherosclerotic heart disease of native coronary artery without angina pectoris; I25.2 Old myocardial infarction; E78.5 Hyperlipidemia, unspecified; K21.9 Gastro-esophageal reflux disease without esophagitis; Z91.013 Allergy to seafood; Z86.711 Personal history of pulmonary embolism; Z98.890 Other specified postprocedural states; Z79.899 Other long term (current) drug therapy; Z79.82 Long term (current) use of aspirin; Z79.02 Long term (current) use of antithrombotics/antiplatelets; Z80.9 Family history of malignant neoplasm, unspecified

== ENCOUNTER 2020-10-04 05:53 | Inpatient (IN) ==
--- NOTE | 2020-09-15 15:19 | PAT Medication Instructions ---
Medication Instructions Date of Service September 15, 2020 Home Medications Medication Instructions Recorded hydrocodone 5 mg-acetaminophen 325 1 tab PO Q6H PRN #30 tab 04/14/20 mg tablet oxycodone 5 mg tablet 5 mg PO Q6 PRN #30 tab 07/19/20 amitriptyline 100 mg PO HS atorvastatin [Lipitor] 80 mg PO HS famotidine [Pepcid] 20 mg PO BID gabapentin 100 mg PO BID losartan [Cozaar] 50 mg PO QAM aspirin [Aspirin Low Dose] 81 mg PO QAM metoprolol succinate [Toprol XL] 25 mg PO QAM metformin 1,000 mg PO BID hydrocodone 5 mg-acetaminophen 325 mg tablet 1 tab PO Q6H PRN oxycodone 5 mg tablet 5 mg PO Q6 PRN glipizide 5 mg PO QAM DO NOT take the morning of surgery losartan [Cozaar] 50 mg PO QAM metformin 1,000 mg PO BID glipizide 5 mg PO QAM Take morning of surgery With a small sip of water, OTHERWISE NOTHING TO EAT OR DRINK AFTER MIDNIGHT: famotidine [Pepcid] 20 mg PO BID gabapentin 100 mg PO BID aspirin [Aspirin Low Dose] 81 mg PO QAM (unless surgeon directs otherwise) metoprolol succinate [Toprol XL] 25 mg PO QAM hydrocodone 5 mg-acetaminophen 325 mg tablet 1 tab PO Q6H PRN (okay to take up to 4 hours prior to surgery if needed) oxycodone 5 mg tablet 5 mg PO Q6 PRN (okay to take up to 4 hours prior to surgery if needed) Take evening before surgery amitriptyline 100 mg PO HS atorvastatin [Lipitor] 80 mg PO HS famotidine [Pepcid] 20 mg PO BID gabapentin 100 mg PO BID metformin 1,000 mg PO BID hydrocodone 5 mg-acetaminophen 325 mg tablet 1 tab PO Q6H PRN (if needed) oxycodone 5 mg tablet 5 mg PO Q6 PRN (if needed) Other Notes If you have any questions please call us at [phone] or [phone] or [phone] or [phone]
--- NOTE | 2020-09-20 10:37 | Anesthesiology Consultation ---
Date of Service September 20, 2020 Assessment & Plan (1) Encounter for pre-operative examination: Chart Review Chart Review: Acceptable Risk for Surgery (pending cardio clearance, upcoming ECHO 09/22, updated EKG/cardio testing, and preop Covid testing ) and Patient seen in Pre Admission Testing Awaiting cardio clearance, upcoming ECHO scheduled 09/22/20, any updated EKG or cardio testing - Check BSG AM DOS Per PAT appointment 09/20/2020, patient denies any recent travel. No known Covid positive contacts or Covid related symptoms. No known Covid infection in the past 90 days. Pt is NOT vaccinated for Covid. Preop Covid testing scheduled 10/02/20= will await results. Educated on importance of self quarantining, social distancing and wearing mask in public both for the patient after Covid testing done Right shoulder arthroscopy, rotator cuff repair 02/29/2020 = done under [place] with LMA #5. Atraumatic content x1. Teaching & Discussion Pre-Anesthesia Teaching/Discussion Notes: Instructed NPO after midnight before surgery,except medications with 15 cc of water. Medication instructions provided according to the PAT guidelines. History Surgery Operation Date: 10/04/20 07:45 Proposed Procedures p L4-L5 Decompression Fusion, Spinal Cord Monitoring - Mynor Purcell, Height/Weight Height: 5 ft 11 in Weight: 125.4 kg Allergies Allergy/AdvReac Type Severity Reaction Status Date / Time shellfish derived Allergy Severe THROAT Verified 09/13/20 11:51 SWELLS tramadol Allergy Mild HIVES Verified 09/13/20 11:51 Medications Home Medications Medication Instructions Recorded Confirmed Last Taken amitriptyline 100 mg tablet 100 mg PO HS 02/16/19 09/13/20 02/27/20 23:00 atorvastatin 80 mg tablet (Lipitor) 80 mg PO HS 02/16/19 09/13/20 02/27/20 21:00 famotidine 20 mg tablet (Pepcid) 20 mg PO BID 02/16/19 09/13/20 02/27/20 21:00 gabapentin 100 mg capsule 100 mg PO BID 02/16/19 09/13/20 02/28/20 21:00 losartan 50 mg tablet (Cozaar) 50 mg PO QAM 02/16/19 09/13/20 02/28/20 08:00 aspirin 81 mg tablet,delayed 81 mg PO QAM 02/23/19 09/13/20 02/28/20 09:00 release (Aspirin Low Dose) metoprolol succinate 25 mg 25 mg PO QAM 02/23/19 09/13/20 02/28/20 08:00 tablet,extended release 24 hr (Toprol XL) metformin 1,000 mg tablet 1,000 mg PO BID 02/29/20 09/13/20 02/27/20 08:00 oxycodone 5 mg tablet 5 mg PO Q6 PRN #30 tab 07/19/20 09/13/20 Unknown glipizide 5 mg tablet 5 mg PO QAM 09/13/20 09/13/20 Unknown Past Medical History Medical History (Updated 09/20/20 @ 10:54 by Patti Fonseca PA-C) CAD (coronary artery disease) 2006 x 2 stents (LAD, Diagonal), 2011 (PADMINI D1); cardiac stents x3 total (most recent stent 2011) No recent issues Degenerative disc disease Diabetes mellitus, type 2 NIDDM GERD (gastroesophageal reflux disease) controlled Hyperlipidemia Hypertension Myocardial Infarction 2012 > stents SIDDHARTHA (obstructive sleep apnea) no cpap Osteoarthritis Exercise / Class Metabolic Activity II 4-5 Yardwork/Stairs/Walk up hill (one flight of stairs - no chest pain or SOB ) Past Family History Family History Father Family history of diabetes mellitus Other No family history of adverse response to anesthesia Past Surgical History Surgical History Fusion of spine ACDF C6-C7, C5 corpectomy: 08/08/10: MAC#4, ETT 7.5 at [facility] History of cardiac cath 2006 (LAD, Dx), 2011 (PADMINI D1); cardiac stents x3 total (most recent stents 2011) History of colonoscopy History of esophageal dilatation History of esophagogastroduodenoscopy (EGD) History of hip surgery right hip (as a child) History of repair of rotator cuff right History of tooth extraction History of total knee replacement right knee Past Anesthesia History No Hx of Anesthesia Complications and No Family Hx of Anesthesia Complications History of PONV No Hx of PONV and No Hx of Motion Sickness Social History Smoking Status: Former smoker tobacco type: cigarettes Do You Dip or Chew Tobacco: No Smoking End Date: 15 yrs ago Hx Alcohol Use: No Hx Substance Use: No substance use type: does not use Review of Systems Patient denies chest pain, shortness of breath, dyspnea on exertion, cough, wheezing, palpitations. No hx of seizures, stroke. No hx of blood clots or blood transfusions Physical Exam Constitutional no acute distress ENMT Mouth: no TMJ clicking Thyromental Distance: > or= 3.5 Finger Breadths (4.0) Mallampati Class: III Missing molars Neck + facial hair (advised patient to shave ); neck extension not limited Respiratory normal respiratory effort; no respiratory distress Auscultation: lungs clear to auscultation bilaterally; no wheezes Cardiovascular Rate/Rhythm: regular rate and regular rhythm Heart Sounds: no murmur Vessels: no carotid bruit Musculoskeletal Spine: no pain with cervical ROM Extremities: extremities normal to inspection Psychiatric Orientation: alert Lab Results Anesthesia Preop Results Results Anesthesia Widget: WBC 11.78 K/uL (4.8-10.8) H 09/20/20 Hgb 16.1 g/dL (14.0-18.0) 09/20/20 Hct 47.7 % (42-52) 09/20/20 Plt 263 K/uL (130-400) 09/20/20 Na 137 mmol/L (136-145) 09/20/20 K 4.6 mmol/L (3.5-5.1) 09/20/20 Cl 103 mmol/L (98-107) 09/20/20 CO2 27 mmol/L (21-32) 09/20/20 BUN 15 mg/dl (7-18) 09/20/20 Creat 0.84 mg/dl (0.6-1.4) 09/20/20 Glucose Level 138 mg/dl (70-99) H 09/20/20 PT 11.1 Seconds (9.0-12.0) 09/20/20 PTT 27.1 Seconds (21.0-31.0) 09/20/20 INR 1.1 (0.9-1.1) 09/20/20 HA1c 6.2 % (4.5-5.6) H 09/20/20 Urine Color Yellow 09/20/20 Urine Appearance Clear (Clear) 09/20/20 Urine pH 6.5 (4.5-7.5) 09/20/20 Urine Specific [place] 1.016 (1.000-1.030) 09/20/20 Urine Protein Negative (Negative) 09/20/20 Urine Glucose (UA) Negative (Negative) 09/20/20 Urine Ketones Negative (Negative) 09/20/20 Urine Blood Negative (Negative) 09/20/20 Urine Nitrite Negative (Negative) 09/20/20 Urine Bilirubin Negative (Negative) 09/20/20 Urine Urobilinogen Negative (Negative) 09/20/20 Urine Leukocyte Esterase Negative (Negative) 09/20/20 Blood Type A Positive 09/20/20 Antibody Screen NEGATIVE 09/20/20 Testing Electrocardiogram Date: 02/23/20 Findings: + NSR @ (80 bpm ) Normal EKG per cardio. Chest X-Ray Date: 09/20/20 Findings: + NAD
[2020-10-04] MEDS ORDERED: ACETAMINOPHEN 500 MG TAB PO SCH (06:00)
[2020-10-04] MEDS ORDERED: LR 15ML/HR IV SCH (06:00)
[2020-10-04] MEDS ORDERED: CeleBREX 200 MG CAP PO SCH (06:00)
[2020-10-04] MEDS ORDERED: GABAPENTIN 900 MG DOSE PO SCH (06:00)
[2020-10-04] MEDS ORDERED: ePHEDrine sulfate 50 MG/ML AMP IV PRN (06:44)
[2020-10-04] MEDS ORDERED: ATROPINE SULFATE 0.1 MG/ML 10ML SYR IV PRN (06:44)
[2020-10-04] MEDS ORDERED: ONDANSETRON INJ 2 MG/ML 2 ML VIAL IV PRN ×2 (06:44→10:44)
[2020-10-04] MEDS ORDERED: PROMETHAZINE HCL 12.5 MG in SODIUM CHLORIDE 0.9% 50 ML IV PRN ×2 (06:44→10:44)
[2020-10-04] MEDS ORDERED: fentaNYL citrate 100 MCG/2 ML VIAL ONE (07:06)
[2020-10-04] MEDS ORDERED: ROCURONIUM BROMIDE 10 MG/ML 5 ML VIAL IV ONE (07:06)
[2020-10-04] MEDS ORDERED: PROPOFOL IV EMULSION 10 MG/ML 20 ML VIAL IV ONE (07:06)
[2020-10-04] MEDS ORDERED: MIDAZOLAM HCL 1 MG/ML 2ML VIAL ONE (07:06)
[2020-10-04] MEDS ORDERED: LIDOCAINE 2% 2 ML VIAL/AMP(20MG/ML) INFIL ONE (07:06)
[2020-10-04] MEDS ORDERED: KETAMINE 50 MG/5 ML SYRINGE ONE (07:09)
[2020-10-04] MEDS ORDERED: BUPIVACAINE/EPINEPHRINE 0.5% MPF 1:200,000 30 ML VIAL ONE (07:34)
--- NOTE | 2020-10-04 07:34 | History & Physical Bridge Note ---
Date of Service October 04, 2020 History & Physical Bridge Note I have examined the patient, reviewed the History & Physical and in the interval since the performance of the History & Physical I have noted the following changes of clinical significance: no changes noted
--- NOTE | 2020-10-04 07:35 | History & Physical Report ---
Date of Service October 04, 2020 Assessment & Plan (1) Neurogenic claudication due to lumbar spinal stenosis: Plan: L4-L5 decompression fusion History of Present Illness Chief Complaint: Back and bilateral leg pain Primary Care Provider: Elias Lee DO This is a 54-year-old male presents with chronic persistent back and leg pain. Failing since course of nonoperative care is here for surgical invention. Allergies Allergy/AdvReac Type Severity Reaction Status Date / Time shellfish derived Allergy Severe THROAT Verified 09/13/20 11:51 SWELLS tramadol Allergy Mild HIVES Verified 09/13/20 11:51 Home Medications Medication Instructions Recorded Confirmed Type amitriptyline 100 mg tablet 100 mg PO HS 02/16/19 10/04/20 History atorvastatin 80 mg tablet (Lipitor) 80 mg PO HS 02/16/19 10/04/20 History famotidine 20 mg tablet (Pepcid) 20 mg PO BID 02/16/19 10/04/20 History gabapentin 100 mg capsule 100 mg PO BID 02/16/19 10/04/20 History losartan 50 mg tablet (Cozaar) 50 mg PO QAM 02/16/19 10/04/20 History aspirin 81 mg tablet,delayed 81 mg PO QAM 02/23/19 10/04/20 History release (Aspirin Low Dose) metoprolol succinate 25 mg 25 mg PO QAM 02/23/19 10/04/20 History tablet,extended release 24 hr (Toprol XL) metformin 1,000 mg tablet 1,000 mg PO BID 02/29/20 10/04/20 History oxycodone 5 mg tablet 5 mg PO Q6 PRN #30 tab 07/19/20 10/04/20 Rx glipizide 5 mg tablet 5 mg PO QAM 09/13/20 10/04/20 History Past Med/Surg History Medical History (Updated 10/04/20 @ 07:35 by Mynor Purcell DO) CAD (coronary artery disease) 2006 x 2 stents (LAD, Diagonal), 2011 (PADMINI D1); cardiac stents x3 total (most recent stent 2011) No recent issues Degenerative disc disease Diabetes mellitus, type 2 NIDDM GERD (gastroesophageal reflux disease) controlled Hyperlipidemia Hypertension Myocardial Infarction 2012 > stents SIDDHARTHA (obstructive sleep apnea) no cpap Osteoarthritis Surgical History Fusion of spine ACDF C6-C7, C5 corpectomy: 08/08/10: MAC#4, ETT 7.5 at [facility] History of cardiac cath 2006 (LAD, Dx), 2012 (PADMINI D1); cardiac stents x3 total (most recent stents 2011) History of colonoscopy History of esophageal dilatation History of esophagogastroduodenoscopy (EGD) History of hip surgery right hip (as a child) History of repair of rotator cuff right History of tooth extraction History of total knee replacement right knee Family History Father Family history of diabetes mellitus Other No family history of adverse response to anesthesia Social History Smoking Status: Never smoker Smoking End Date: 15 yrs ago; Second Hand Exposure: No; Do You Dip or Chew Tobacco: No; Tobacco Cessation Education Requested by Patient: No Hx Alcohol Use: No Hx Substance Use: No Preferred Language: Djiboutian Communication Ability: Effective Problem Manager Required: No Beliefs That Will Affect Care: None Current Living Situation: Spouse Other Information That Helps Us Care for You: No Feels Safe at Home: Yes Safety Concerns: Feels Safe At This Time Assistive Devices: None Physical Exam Physical Exam: Patient is alert and oriented Heart regular rhythm Lungs clear to auscultation Results & Data ([facility]) Vital Signs (Past 12 Hours) Vital Signs Temp Pulse Resp BP Pulse Ox 10/04/20 06:26 37.0 C 88 22 144/86 H 97
[2020-10-04] MEDS ORDERED: HYDROmorphone INJ 2 MG/ML SYR/VIAL ONE (08:10)
[2020-10-04] MEDS ORDERED: HYDROmorphone INJ 0.5 MG/0.5 ML SYR IV PRN ×2 (08:16→10:44)
[2020-10-04] MEDS ORDERED: GLYCOPYRROLATE 0.2 MG/ML VIAL ONE (08:27)
[2020-10-04] MEDS ORDERED: ONDANSETRON INJ 2 MG/ML 2 ML VIAL ONE (08:27)
[2020-10-04] MEDS ORDERED: LABETALOL HCL IV 5 MG/ML 20ML IV ONE (08:27)
[2020-10-04] MEDS ORDERED: NEOSTIGMINE METHYLSULFATE 1 MG/ML 10ML VIAL ONE (08:27)
[2020-10-04] MEDS ORDERED: FLOSEAL HEMOSTATIC MATRIX 10ML TOP ONE (09:21)
--- NOTE | 2020-10-04 09:30 | Operative Report ---
Post Operative Report Pre & Post Diagnosis Operation Date: 10/04/20 07:45 Pre-Op Diagnosis: Neurogenic Claudication due to Lumbar Spinal Stenosis Post-Op Diagnosis: Neurogenic Claudication due to Lumbar Spinal Stenosis I identified the patient and participated in the time-out.: Yes Procedure Operation Date: 10/04/20 07:45 Actual Procedures #1 lumbar decompression with bilateral medial facetectomies and foraminotomies L3-4 and L4-5 per #2 posterior spinal fusion L4-5. #3 posterior instrumentation L4-5. #4 interbody fusion L4-5. #5 placement peek cage 15 x 26 mm at L4-5. #6 placement locally harvested morselized autograft in the posterior lateral gutters. #7 placement of I factor combined with Vitoss in the interbody space and posterior lateral gutters. Surgeon Mynor Purcell, DO Public Relations Account Executive Cathleen Dugan Estimated Blood Loss 100 Findings See Below The patient is 5 foot 11 inches tall weighing over 122 kg with a BMI in excess of 37. Patient's body habitus did contribute to significant technical difficulty requiring her deepest retractors and longest instruments in order to perform his procedure. This added at least 50% increase to the operative time. Specimens None Indications This is a 54-year-old male who presents above-mentioned diagnosis after failing course of nonoperative care is here for the above-mentioned procedure. Description of Procedure Patient met with identified informed consent obtained. Patient was then taken to the operative suite underwent a patient placed in a prone position the Jose table Salvador frame. All bony prominences well-padded eyes inspected to ensure no external pressure placed upon the. This point the lumbar spine was prepped and draped in a sterile fashion. Sharp dissection with the assistance of Bovie cautery performed down to and exposing the lamina and transverse processes of L4 and L5. From a caudal cephalad fashion complete laminectomy of L4 partial laminectomy of L3 was performed occluding bilateral medial facetectomies and foraminotomies addressing severe spinal stenosis. Pedicle screws were then placed in L4 and L5 bilaterally with assistance of fluoroscopy and the proper sized klaudia placed. By way of a transforaminal approach on the right a complete discectomy of L4-5 was performed endplates curetted to subcortical being bone and a 15 x 26 mm peek cage filled with I factor tapped in position. The rods were then locked in final position bilaterally. The transverse processes of L4 and L5 burred to subcortical bleeding bone. I factor combined with Vitoss and locally harvested morselized autograft was then placed in posterior gutters. 15 round KAVITA drain inserted. The incision was then closed with 1 Vicryl to fascia 2-0 Vicryl subcutaneously and 4 Monocryl for final skin closure. Steri-Strip sterile dressings placed. Patient will continue PACU stable condition. Please note spinal cord monitoring was utilized at the procedure no changes noted. Lastly Cathleen Dugan was present at the entire procedure about the patient positioning complex portions of the surgery and final skin closure. I attest to the content of the Intraoperative Record and any orders documented therein. Any exceptions are noted below.
[2020-10-04] MEDS ORDERED: PHARMACY GLYCEMIC MGMT CONSULT PRN (09:49)
--- NOTE | 2020-10-04 09:59 | Fluoroscopy Report ---
FL lumbar spine 2-3V CLINICAL HISTORY: L4-L5 DECOMP/FUSION COMPARISON STUDY: None. FLUOROSCOPY TIME: 14 seconds. FINDINGS: 2 fluoroscopic spot images of the lower lumbar spine demonstrate posterior decompression an d fusion at L4-5 with pedicle screws and rods. The hardware appears intact. IMPRESSION: Fluoroscopy provided for L4-5 posterior decompression and fusion ACT 112: Negative or not required by law. Electronically signed by: Walt Luna M.D. 10/04/2020 9:58 AM
[2020-10-04] MEDS ORDERED: METOCLOPRAMIDE HCL INJ 5 MG/ML 2 ML VIAL IV PRN (10:44)
[2020-10-04] MEDS ORDERED: diphenhydrAMINE Capsule 25 MG CAP PO PRN (10:44)
[2020-10-04] MEDS ORDERED: SOD PHOSPHATE/SOD BIPHOSPHATE ENEMA 132 ML BTL PR PRN (10:44)
[2020-10-04] MEDS ORDERED: FAMOTIDINE 20 MG TAB PO PRN (10:44)
[2020-10-04] MEDS ORDERED: DO NOT ADMINISTER FLU VACCINE PRN (10:44)
[2020-10-04] MEDS ORDERED: NALOXONE HCL 0.4 MG/1 ML VIAL/CARP IV PRN (10:44)
[2020-10-04] MEDS ORDERED: hydrOXYzine HCl 25 MG TAB PO PRN (10:44)
[2020-10-04] MEDS ORDERED: ACETAMINOPHEN 1,000 MG/100 ML VIAL IV PRN (10:44)
[2020-10-04] MEDS ORDERED: ONDANSETRON 4 MG OD TAB PO PRN (10:44)
[2020-10-04] MEDS ORDERED: LORazepam 0.5 MG/1 ML VIAL IV PRN (10:44)
[2020-10-04] MEDS ORDERED: DO NOT ADMINISTER PNEUMOCOCCAL VACCINE PRN (10:44)
[2020-10-04] MEDS ORDERED: LORazepam 0.5 MG TAB PO PRN (10:44)
[2020-10-04] MEDS ORDERED: ALUMINUM/MAGNESIUM SUSP 30 ML UDC PO PRN (10:44)
[2020-10-04] MEDS ORDERED: ACETAMINOPHEN 500 MG TAB PO PRN (10:44)
[2020-10-04] MEDS ORDERED: MAGNESIUM HYDROXIDE SUSP 30 ML UDC PO PRN (10:44)
[2020-10-04] MEDS: fentaNYL citrate 100 MCG/2 ML VIAL IV PRN ×4 (10:59→11:19)
[2020-10-04] MEDS ORDERED: DEXAMETHASONE SOD INJ 4 MG/ML VIAL ONE (11:03)
[2020-10-04] MEDS ORDERED: ePHEDrine sulfate 50 MG/ML SYR ONE (11:44)
[2020-10-04] MEDS: KETOROLAC 30 MG/ML VIAL IV SCH ×3 (14:43→22:35)
[2020-10-04] MEDS: oxyCODONE HCL IR 5 MG TAB (IMMEDIATE RELEASE) PO PRN ×2 (14:43→20:00)
[2020-10-04] MEDS: SODIUM CHLORIDE 0.9% 1000ML 1,000 ML IV SCH ×2 (14:43→20:51)
--- NOTE | 2020-10-04 15:17 | Critical Care Consultation ---
Date of Consultation October 04, 2020 Assessment & Plan (1) Lumbar spinal stenosis: #1 lumbar decompression with bilateral medial facetectomies and foraminotomies L3-4 and L4-5 per #2 posterior spinal fusion L4-5. #3 posterior instrumentation L4-5. #4 interbody fusion L4-5. #5 placement peek cage 15 x 26 mm at L4-5. #6 placement locally harvested morselized autograft in the posterior lateral gutters. #7 placement of I factor combined with Vitoss in the interbody space and posterior lateral gutters. Awake postoperatively normal neurologic exam, tolerating liquids - Pain control per primary team- Appropriately tiered medications with rescue Narcan available - Antibiotics per primary team - Chemoprophylaxis per primary team - J/P Drain management and output per primary team (2) CAD (coronary artery disease): Paitient with significant coronary history with stents, ND, and cardiac arrest. - Recent ECHO as per HPI - Continue disease modifying medications - Continue Metoprolol 25 mg daily - Continue atorvastatin 80 Qhs - ARB held for morning- if no change in renal function - restart for afterload reduction - Continue ASA - Normal exam and no complaints following surgery (3) Hypertension: Controlled as above goal <130 - ARB as above (4) Hyperlipidemia: As above (5) GERD (gastroesophageal reflux disease): GERD - Continue Famotidine 20 BID with PRN available agree (6) Diabetes mellitus, type 2: HGB A1c acceptable at 6.2 - Hold Metformin and Glipizide - Aspart sliding scale with CF 20 and carb ration 1:15 - Follow with steroids and acute stress- goal <180 notify hospitalist service if uncontrolled (7) SIDDHARTHA (obstructive sleep apnea): Patient states he is not on CPAP at home, smattering of diagnosis of SIDDHARTHA in his chart without sleep study or therapy - baseline HCO3 at 27-29 consistent with obesity hypoventilation - consider ABG for diagnosis - Pulse oximetry continuous with sedating medications on board - Avoid oversedation Supervising Physician Co-Signing Physician Notes Patient seen and examined, chart reviewed, case discussed with CRYSTAL Meza and I agree with his assessment and plan as above. In brief, Mr. Guan is a 54yo male with history of CAD, DM, GERD, HLP s/p L4-L5 decompression and fusion performed by Dr. Purcell today. Surgery was well tolerated. Patient presently comfortable, no complaints. Has eaten without difficulty. Pain well controlled. On exam he is afebrile, HD stable, NAD Skin - tattoos HEENT - NC/AT, PERRL, MMM, Neck supple Heart - +S1/S2, regular, no m/r/g Lungs - CTA Abd - +BS, soft, NT/ND Ext - No edema KAVITA drain in place Labs and images reviewed Assessment/Plan - 54yo male s/p L4-L5 decompression and fusion today. Chronic medical issues well controlled. -Adjustment of insulin sliding scale as above -Initiate ARB tomorrow if renal function is stable -Remainder of plan as above History of Present Illness Reason for Consultation: Post operative medical management Requesting Physician: Mynor Peña DO Attending Physician: Mynor Purcell DO History of Present Illness 54 YOM with past medical history of: CAD, Stents in 2006 x2 with in stent stenosis in 2011 to LAD, ND with cardiac arrest in 2011, GERD, HLD, HTN, previous smoker, Obesity, DM II, ECHO in September 2020- EF 50% severe hypokinesis of the mid distal anterior and mid distal anterolateral flynn and inferoseptum/basal inferior wall. LVH, ? SIDDHARTHA but no record of sleep study patient states he does not wear CPAP. Patient is post-operative day 0 from lumbar decompression with bilateral medial facetectomies and foraminotomies L3-4 and L4-5 per #2 posterior spinal fusion L4-5. #3 posterior instrumentation L4- 5. #4 interbody fusion L4-5. #5 placement peek cage 15 x 26 mm at L4-5. #6 placement locally harvested morselized autograft in the posterior lateral gutters. #7 placement of I factor combined with Vitoss in the interbody space and posterior lateral gutters by Dr. Purcell with estimated blood loss of 100ml. Hospitalist service was consulted for postoperative medical management. Patient is briskly awake, tolerating liquids without any nausea and feels his pain is controlled, remains on 2LNC and supplemental IVF. With postoperative void. Medications and chart reviewed. Additions: Sliding scale carb ratio changed to 1:15- most recent HGBa1c 6.2, held ARB follow BMP in morning, pulse oximetry Discontinued: Ativan IV and PO and Hydroxyzine Allergies Allergy/AdvReac Type Severity Reaction Status Date / Time shellfish derived Allergy Severe THROAT Verified 09/13/20 11:51 SWELLS tramadol Allergy Mild HIVES Verified 09/13/20 11:51 Home Medications Medication Instructions Recorded Confirmed Type amitriptyline 100 mg tablet 100 mg PO HS 02/16/19 10/04/20 History atorvastatin 80 mg tablet (Lipitor) 80 mg PO HS 02/16/19 10/04/20 History famotidine 20 mg tablet (Pepcid) 20 mg PO BID 02/16/19 10/04/20 History gabapentin 100 mg capsule 100 mg PO BID 02/16/19 10/04/20 History losartan 50 mg tablet (Cozaar) 50 mg PO QAM 02/16/19 10/04/20 History aspirin 81 mg tablet,delayed 81 mg PO QAM 02/23/19 10/04/20 History release (Aspirin Low Dose) metoprolol succinate 25 mg 25 mg PO QAM 02/23/19 10/04/20 History tablet,extended release 24 hr (Toprol XL) metformin 1,000 mg tablet 1,000 mg PO BID 02/29/20 10/04/20 History oxycodone 5 mg tablet 5 mg PO Q6 PRN #30 tab 07/19/20 10/04/20 Rx glipizide 5 mg tablet 5 mg PO QAM 09/13/20 10/04/20 History Patient History Medical History (Updated 10/04/20 @ 15:30 by ESTHER Rodriguez) CAD (coronary artery disease) 2006 x 2 stents (LAD, Diagonal), 2011 (PADMINI D1); cardiac stents x3 total (most recent stent 2011) No recent issues Degenerative disc disease Diabetes mellitus, type 2 NIDDM GERD (gastroesophageal reflux disease) controlled Hyperlipidemia Hypertension Myocardial Infarction 2012 > stents SIDDHARTHA (obstructive sleep apnea) no cpap Osteoarthritis Surgical History Fusion of spine ACDF C6-C7, C5 corpectomy: 08/08/10: MAC#4, ETT 7.5 at [facility] History of cardiac cath 2006 (LAD, Dx), 2011 (PADMINI D1); cardiac stents x3 total (most recent stents 2011) History of colonoscopy History of esophageal dilatation History of esophagogastroduodenoscopy (EGD) History of hip surgery right hip (as a child) History of repair of rotator cuff right History of tooth extraction History of total knee replacement right knee Family History Father Family history of diabetes mellitus Other No family history of adverse response to anesthesia Social History Smoking Status: Never smoker Smoking End Date: 15 yrs ago; Second Hand Exposure: No; Do You Dip or Chew Tobacco: No; Tobacco Cessation Education Requested by Patient: No Hx Alcohol Use: No Hx Substance Use: No Preferred Language: Malay Communication Ability: Effective Broom Worker Required: No Beliefs That Will Affect Care: None marital status: Current Living Situation: Spouse Other Information That Helps Us Care for You: No Feels Safe at Home: Yes Safety Concerns: Feels Safe At This Time Assistive Devices: Oxygen - Continuous Review of Systems Review of Systems: REVIEW OF SYSTEMS: Constitutional: No fever, sweats or chills Eyes: No diplopia, no worsening or blurred vision ENT: normal hearing, no trouble swallowing Respiratory: No cough, sputum, dyspnea at rest or on exertion Cardiovascular: No chest pain, tightness or palpitations Abdomen: No pain, nausea, vomiting, diarrhea or constipation Musculoskeletal: no new pain, pain controlled, calf pain, swelling Neurologic: No weakness, numbness/tingling, or balance problems Skin: No rash or itch Physical Exam Physical Exam: PHYSICAL EXAM: General: awake, alert, no apparent distress Head: Normocephalic, atraumatic ENT: PERRL, EOMI, no pharyngeal exudate, mucous membranes moist Neuro: AAO x 3, speech clear and appropriate, strength intact bilaterally 5/5, sensation intact and equal all extremities and dermatomes, no pronator drift Chest: equal rise and fall of the chest, no accessory muscle use, no heaves or thrills, decreased in bases secondary to body habitus, good air movement on 2LNC Cardiac: Regular rate and rhythm, skin warm dry, cap refill <3 seconds, peripheral pulses +2 no JVD, no murmur, no edema GI: NABS x 4 quadrants, soft, nontender to palpation, no rebound, guarding or tenderness : Spontaneously voiding, no pain, no CVA tenderness, Extremities: Normal inspection, no peripheral edema or erythema, calfs nontender to palpation Psych: Normal mood and affect Skin: no rash or erythema Drain: KAVITA drain serous sang drainage Results & Data Results & Data ([facility]) Vital Signs (Past 12 Hours) Vital Signs Temp Pulse Pulse Resp BP Pulse Ox 10/04/20 13:40 37.3 C 79 16 108/61 95 10/04/20 13:00 81 14 110/61 96 10/04/20 12:25 83 16 117/65 95 10/04/20 11:55 37.3 C 84 15 113/69 93 10/04/20 11:25 83 20 125/71 94 10/04/20 11:10 86 24 120/90 94 10/04/20 10:55 84 23 135/90 94 10/04/20 10:40 37.1 C 80 15 141/80 H 95 10/04/20 10:30 37.1 C 83 14 139/87 95 10/04/20 10:20 79 17 150/81 H 96 10/04/20 10:10 80 88 14 150/80 H 97 10/04/20 10:00 82 88 16 148/85 H 94 10/04/20 09:50 37.1 C 85 88 22 161/91 H 93 10/04/20 06:26 37.0 C 88 22 144/86 H 97 Laboratory Results Abnormal lab results 10/04/20 Range/Units 09:52 POC Glucose 120 H (70-99) mg/dl Diagnostic Findings Lumbar Spine X-Ray 10/04/20 07:45 FL lumbar spine 2-3V CLINICAL HISTORY: L4-L5 DECOMP/FUSION COMPARISON STUDY: None. FLUOROSCOPY TIME: 14 seconds. FINDINGS: 2 fluoroscopic spot images of the lower lumbar spine demonstrate posterior decompression and fusion at L4-5 with pedicle screws and rods. The hardware appears intact. IMPRESSION: Fluoroscopy provided for L4-5 posterior decompression and fusion ACT 112: Negative or not required by law. Electronically signed by: Walt Luna M.D. 10/04/2020 9:58 AM Medications Administered Home Medications amitriptyline 100 mg tablet 100 mg PO HS 02/16/19 [History Confirmed 10/04/20] atorvastatin 80 mg tablet (Lipitor) 80 mg PO HS 02/16/19 [History Confirmed 10/04/20] famotidine 20 mg tablet (Pepcid) 20 mg PO BID 02/16/19 [History Confirmed 10/04/20] gabapentin 100 mg capsule 100 mg PO BID 02/16/19 [History Confirmed 10/04/20] losartan 50 mg tablet (Cozaar) 50 mg PO QAM 02/16/19 [History Confirmed 10/04/20] aspirin 81 mg tablet,delayed release (Aspirin Low Dose) 81 mg PO QAM 02/23/19 [History Confirmed 10/04/20] metoprolol succinate 25 mg tablet,extended release 24 hr (Toprol XL) 25 mg PO QAM 02/23/19 [History Confirmed 10/04/20] metformin 1,000 mg tablet 1,000 mg PO BID 02/29/20 [History Confirmed 10/04/20] oxycodone 5 mg tablet 5 mg PO Q6 PRN #30 tab 07/19/20 [Rx Confirmed 10/04/20] glipizide 5 mg tablet 5 mg PO QAM 09/13/20 [History Confirmed 10/04/20] Active Medications Acetaminophen (Acetaminophen 500 Mg Tab) 1,000 mg PO Q8H PRN PRN Reason: MILD Pain Scale 1,2,3 & Pre PT Stop: 11/03/20 10:43 Al Hydrox/Mg Hydrox/Simethicone (Aluminum/Magnesium Susp 30 Ml Udc) 30 ml PO Q6H PRN PRN Reason: Dyspepsia Stop: 11/03/20 10:43 Amitriptyline HCl (Amitriptyline Hcl 100 Mg Tab) 100 mg PO HS LATOYA Stop: 11/03/20 20:59 Aspirin (Aspirin 81 Mg Ectab) 81 mg PO QAM LATOYA Stop: 11/04/20 08:59 Atorvastatin Calcium (Atorvastatin 40 Mg Tab) 80 mg PO HS LATOYA Stop: 11/03/20 20:59 Bisacodyl (Bisacodyl 10 Mg Supp) [address] DAILY PRN PRN Reason: Constipation Stop: 11/05/20 07:59 Celecoxib (Celebrex 200 Mg Cap) 200 mg PO PREOP LATOYA Stop: 10/04/20 18:00 Last Admin: 10/04/20 06:23 Dose: 200 mg Documented by: Diphenhydramine HCl (Diphenhydramine Capsule 25 Mg Cap) 25 mg PO Q6H PRN PRN Reason: Allergic Rhinitis/Insomnia Stop: 11/03/20 10:43 Famotidine (Famotidine 20 Mg Tab) 20 mg PO BID LATOYA Stop: 11/03/20 20:59 Famotidine (Famotidine 20 Mg Tab) 20 mg PO Q12H PRN PRN Reason: Dyspepsia Stop: 11/03/20 10:43 Gabapentin (Gabapentin 900 Mg Dose) 900 mg PO PREOP LATOYA Stop: 10/04/20 18:00 Last Admin: 10/04/20 06:23 Dose: 900 mg Documented by: Gabapentin (Gabapentin 100 Mg Cap) 100 mg PO BID LATOYA Stop: 11/03/20 20:59 Hydromorphone HCl (Hydromorphone Inj 0.5 Mg/0.5 Ml Syr) 0.5 mg IV Q3H PRN PRN Reason: MOD pain (scale 4-6) & Pre PT Stop: 10/18/20 10:43 Hydromorphone HCl (Hydromorphone Inj 1 Mg/Ml Syringe) 1 mg IV Q3H PRN PRN Reason: severe pain (scale 7-10) Stop: 10/18/20 10:43 Hydroxyzine HCl (Hydroxyzine Hcl 25 Mg Tab) 25 mg PO Q8H PRN PRN Reason: Anxiety Stop: 11/03/20 10:43 Lactated Ringer's (Lr) 1,000 mls @ 15 mls/hr IV .Q24H LATOYA Stop: 10/05/20 05:59 Last Infusion: 10/04/20 07:43 Dose: Infused Documented by: Cefazolin Sodium (Ancef 3000mg) 72.5 mls @ 130 mls/hr IV PREOP LATOYA; Protocol Stop: 10/04/20 18:00 Last Infusion: 10/04/20 14:25 Dose: Infused Documented by: Sodium Chloride (Nss 1000ml) 1,000 mls @ 150 mls/hr IV .Q6H40M LATOYA Stop: 11/03/20 10:43 Last Admin: 10/04/20 14:43 Dose: 150 mls/hr Documented by: Promethazine HCl 12.5 mg/ (Sodium Chloride) 50.5 mls @ 202 mls/hr IV Q6H PRN PRN Reason: Nausea &/or Vomiting Stop: 11/03/20 10:43 Acetaminophen (Ofirmev) 1,000 mg in 100 mls @ 400 mls/hr IV Q8H PRN PRN Reason: Pain Rating 1-3 & Pre PT Stop: 10/07/20 10:43 Lorazepam (Ativan) 0.5 mg in 1 mls @ 1 mls/min IV Q8H PRN PRN Reason: Sedation/Anxiety Stop: 11/03/20 10:43 Cefazolin Sodium (Ancef 2000mg) 2,000 mg in 15 mls @ 3.75 mls/min IV Q8H LATOYA; Protocol Stop: 10/05/20 00:03 Influenza Virus Vaccine Quadrival (Do Not Administer Flu Vaccine) 1 ea N/A PRN PRN PRN Reason: Notification Stop: 11/03/20 10:43 Insulin Aspart (Insulin Aspart 100 Units/Ml 3 Ml Pen) 0 units SC ACHS [facility] Stop: 11/03/20 16:29 Ketorolac Tromethamine (Ketorolac 30 Mg/Ml Vial) 30 mg IV Q6H LATOYA Stop: 10/05/20 05:01 Last Admin: 10/04/20 14:43 Dose: 30 mg Documented by: Lorazepam (Lorazepam 0.5 Mg Tab) 0.5 mg PO Q8H PRN PRN Reason: sedation/anxiety Stop: 11/03/20 10:43 Losartan Potassium (Losartan Potassium 50 Mg Tab) 50 mg PO QAM LATOYA Stop: 11/04/20 08:59 Magnesium Hydroxide (Magnesium Hydroxide Susp 30 Ml Udc) 30 ml PO Q24H PRN PRN Reason: Constipation Stop: 11/03/20 10:43 Metoclopramide HCl (Metoclopramide Hcl Inj 5 Mg/Ml 2 Ml Vial) 10 mg IV Q6H PRN PRN Reason: Nausea &/or Vomiting Stop: 11/03/20 10:43 Metoprolol Succinate (Metoprolol Succ 25mg Ext Rel Tab) 25 mg PO QAM LATOYA Stop: 11/04/20 08:59 Miscellaneous Information (Pharmacy Glycemic Mgmt Consult) 1 ea N/A UD PRN PRN Reason: Consult Stop: 11/03/20 09:48 Naloxone HCl (Naloxone Hcl 0.4 Mg/1 Ml Vial/Carp) 0.1 mg IV Q5M PRN PRN Reason: Oversedation/respiratory dep Stop: 11/03/20 10:43 Ondansetron HCl (Ondansetron Inj 2 Mg/Ml 2 Ml Vial) 4 mg IV Q6H PRN PRN Reason: Nausea &/or Vomiting Stop: 11/03/20 10:43 Ondansetron HCl (Ondansetron 4 Mg Od Tab) 4 mg PO Q6H PRN PRN Reason: Nausea Stop: 11/03/20 10:43 Oxycodone HCl (Oxycodone Hcl Ir 5 Mg Tab (Immediate Release)) 5 - 10 mg PO Q4H PRN PRN Reason: Pain & Pre PT Stop: 10/18/20 10:43 Last Admin: 10/04/20 14:43 Dose: 10 mg Documented by: Pneumococcal Polyvalent Vaccine (Do Not Administer Pneumococcal Vaccine) 1 ea N/A PRN PRN PRN Reason: Notification Stop: 11/03/20 10:43 Polyethylene Glycol (Polyethylene (Miralax) 17 Gm Pack) 17 gm PO Q6 LATOYA Stop: 11/04/20 05:59 Senna/Docusate Sodium (Docusate Sodium/Senna 50/8.6mg Tab) 2 tab PO HS LATOYA Stop: 11/03/20 20:59 Sodium Biphosphate/Sodium Phosphate (Sod Phosphate/Sod Biphosphate Enema 132 Ml Btl) [address] ONE PRN PRN Reason: Constipation Stop: 11/03/20 10:43 ECG Additional Comments: Reveiwed from February- normal ECG PG Care Time/CCT Total # of Minutes Spent Total Time Spent with Patient: Total time spent is greater than 50% in coordination of care (as documented) at patient's floor/unit and/or counseling patient: Coding Level of Care Code 41997 Inpt Consult Level 4 Diagnoses Lumbar spinal stenosis M48.061 CAD (coronary artery disease) I25.10 Hypertension I10 Hyperlipidemia E78.5 GERD (gastroesophageal reflux disease) K21.9 Diabetes mellitus, type 2 E11.9 SIDDHARTHA (obstructive sleep apnea) G47.33
--- NOTE | 2020-10-04 15:30 | Anesthesiology Progress Note ---
Date of Service October 04, 2020 Anesthesia Post Procedure Vital Signs Vital Signs: Temp Pulse Pulse Resp BP Pulse Ox 10/04/20 13:40 37.3 C 79 16 108/61 95 10/04/20 13:00 81 14 110/61 96 10/04/20 12:25 83 16 117/65 95 10/04/20 11:55 37.3 C 84 15 113/69 93 10/04/20 11:25 83 20 125/71 94 10/04/20 11:10 86 24 120/90 94 10/04/20 10:55 84 23 135/90 94 10/04/20 10:40 37.1 C 80 15 141/80 H 95 10/04/20 10:30 37.1 C 83 14 139/87 95 10/04/20 10:20 79 17 150/81 H 96 10/04/20 10:10 80 88 14 150/80 H 97 10/04/20 10:00 82 88 16 148/85 H 94 10/04/20 09:50 37.1 C 85 88 22 161/91 H 93 10/04/20 06:26 37.0 C 88 22 144/86 H 97 Pain Intensity Lower Back: Pain Intensity: 5 Transfer of Care Handoff Completed per policy Notes Mental Status: alert / awake / arousable and participated in evaluation Patient Amnestic to Procedure: Yes Nausea / Vomiting: adequately controlled Pain: adequately controlled Airway Patency, RR, SpO2: stable & adequate BP & HR: stable & adequate Hydration State: stable & adequate Anesthetic Complications: no major complications apparent and Pt Satisfied with anesthetic care
[2020-10-04] MEDS ORDERED: INSULIN HUMAN NPH SC ONE (16:00)
[2020-10-04] MEDS: HYDROmorphone INJ 1 MG/ML SYRINGE IV PRN (17:24)
[2020-10-04] MEDS: ceFAZolin 2000MG 2,000 MG/15 ML SYR IV SCH (17:56)
[2020-10-04] MEDS: INSULIN ASPART 100 UNITS/ML 3 ML PEN SC SCH (17:56)
[2020-10-04] MEDS: GABAPENTIN 100 MG CAP PO SCH (20:00)
[2020-10-04] MEDS: DOCUSATE SODIUM/SENNA 50/8.6MG TAB PO SCH (20:00)
[2020-10-04] MEDS: FAMOTIDINE 20 MG TAB PO SCH (20:01)
[2020-10-04] MEDS: AMITRIPTYLINE HCL 100 MG TAB PO SCH (20:01)
[2020-10-04] MEDS: ATORVASTATIN 40 MG TAB PO SCH (20:01)
[2020-10-05] MEDS: ceFAZolin 2000MG 2,000 MG/15 ML SYR IV SCH (00:14)
[2020-10-05] MEDS: INSULIN ASPART 100 UNITS/ML 3 ML PEN SC SCH ×5 (00:22→21:15)
[2020-10-05] MEDS: SODIUM CHLORIDE 0.9% 1000ML 1,000 ML IV SCH (01:05)
[2020-10-05] MEDS: oxyCODONE HCL IR 5 MG TAB (IMMEDIATE RELEASE) PO PRN ×5 (03:20→23:07)
[2020-10-05] MEDS: POLYETHYLENE (MIRALAX) 17 GM PACK PO SCH ×3 (05:01→18:06)
[2020-10-05] MEDS: KETOROLAC 30 MG/ML VIAL IV SCH (05:03)
[2020-10-05 06:39] LABS: Basophils # (auto) 0.04 K/uL (0-0.2); Basophils % (auto) 0.5 %; Eosinophils # (auto) 0.36 K/uL (0-0.5); Eosinophils % (auto) 4.1 %; Hematocrit (blood only) 36.4 % (42-52); Hemoglobin 12.5 g/dL (14.0-18.0); Immature Granulocytes # (auto) 0.02 K/uL (0.00-0.02); Immature Granulocytes % (auto) 0.2 %; Lymphocytes # (auto) 1.65 K/uL (1.2-3.4); Lymphocytes % (auto) 18.6 %; Mean Corpuscular Hemoglobin 31.8 pg (25-34); Mean Corpuscular Hgb Conc 34.3 g/dL (32-36); Mean Corpuscular Volume 92.6 fL (80-100); Mean Platelet Volume 10.1 fL (7.4-10.4); Monocytes # (auto) 1.05 K/uL (0.11-0.59); Monocytes % (auto) 11.8 %; Neutrophils # (auto) 5.76 K/uL (1.4-6.5); Neutrophils % (auto) 64.8 %; Platelet Count 207 K/uL (130-400); RDW Coefficient of Variation 13.6 % (11.5-14.5); RDW Standard Deviation 46.6 fL (36.4-46.3); Red Blood Count 3.93 M/uL (4.7-6.1); White Blood Count 8.88 K/uL (4.8-10.8)
[2020-10-05 07:18] LABS: BUN Creatinine Ratio 14.3 (10-20); Creatinine Clr Calc Pharmacy 50.7 ml/min; Est GFR (African American) 112.1 ml/min; Est GFR (Non-African American) 96.7 ml/min
[2020-10-05] MEDS: METOPROLOL SUCC 25MG EXT REL TAB PO SCH (07:50)
[2020-10-05] MEDS: FAMOTIDINE 20 MG TAB PO SCH ×2 (07:50→20:00)
[2020-10-05] MEDS: ASPIRIN 81 MG ECTAB PO SCH (07:50)
[2020-10-05] MEDS: GABAPENTIN 100 MG CAP PO SCH ×2 (07:50→20:00)
--- NOTE | 2020-10-05 08:13 | Orthopedic Progress Note ---
Date of Service October 05, 2020 Assessment & Plan (1) Lumbar spinal stenosis: Plan: This time initiate physical therapy monitor his KAVITA operatively discharge home tomorrow. Admission and Anticipated Discharge Date Admission Date: October 04, 2020 Subjective Back pain controlled leg pain improved Physical Exam Physical Exam: Patient appears comfortable is good strength testing Results & Data ([facility]) Vital Signs (Past 12 Hours) Vital Signs Temp Pulse Resp BP Pulse Ox 10/05/20 07:46 36.9 C 99 H 18 149/80 H 93 10/05/20 03:07 36.6 C 100 H 18 134/77 94 10/04/20 22:39 37.0 C 100 H 18 121/75 93
--- NOTE | 2020-10-05 08:16 | Hospitalist Progress Note ---
Date of Service October 05, 2020 Assessment & Plan (1) Lumbar spinal stenosis: Plan: POD# 1 #1 lumbar decompression with bilateral medial facetectomies and foraminotomies L3-4 and L4-5 per #2 posterior spinal fusion L4-5. #3 posterior instrumentation L4-5. #4 interbody fusion L4-5. #5 placement peek cage 15 x 26 mm at L4-5. #6 placement locally harvested morselized autograft in the posterior lateral gutters. #7 placement of I factor combined with Vitoss in the interbody space and posterior lateral gutters. PT/OT/pain management/DVT prophylaxis per primary team Pre-op h/h 16.1/47.7. EBL 100cc. KAVITA output 280cc + 50cc currently in drain H/h dropped to 12.5/36.4 -- acute blood loss anemia from surgery/KAVITA output and dilutional from IVF Monitor on AM labs Doing well -- plans for d/c tomorrow (2) CAD (coronary artery disease): Plan: Paitient with significant coronary history with stents, [place], and cardiac arrest. - Recent ECHO as per HPI - Continue disease modifying medications - Continue Metoprolol 25 mg daily - Continue atorvastatin 80 Qhs - ARB held for morning- if no change in renal function - restarted this morning given stable BMP - Continue ASA - Normal exam and no complaints following surgery (3) Hypertension: Plan: Controlled as above goal <130 Continue metoprolol 25mg daily - ARB as above resumed given stable Cr and BP 149/80 -- also in setting of pain Continue to monitor (4) Hyperlipidemia: Plan: As above -- continue atorvastatin (5) GERD (gastroesophageal reflux disease): Plan: GERD - Continue Famotidine 20 BID with PRN available (6) Diabetes mellitus, type 2: Plan: HGB A1c acceptable at 6.2 - Hold Metformin and Glipizide - Aspart sliding scale with CF 20 and carb ration 1:15 - Follow with steroids and acute stress- goal <180 notify hospitalist service if uncontrolled BSGs acceptable (7) SIDDHARTHA (obstructive sleep apnea): Plan: Patient states he is not on CPAP at home, smattering of diagnosis of SIDDHARTHA in his chart without sleep study or therapy - baseline HCO3 at 27-29 consistent with obesity hypoventilation - consider ABG for diagnosis - Pulse oximetry continuous with sedating medications on board --> this was never placed Will have overnight pulse ox and rec outpt sleep study if needed based on results (8) Acute blood loss anemia: Plan: DVT Proph -- SCDs, manju mahmood. Chemical contraindicated Dispo: continued inpatient stay, d/c planned hopefully for tomorrow per patient Thank you for allowing hospitalist service to participate in the care of Mr García. Will follow along while inpatient. Admission and Anticipated Discharge Date Admission Date: October 04, 2020 Subjective Patient evaluated this afternoon. Doing well. Leg symptoms controlled. Some sore throat from airway during surgery but no need for cough drop or any medications. Passing gas but no BM. Drinking miralax currently. Has been up and walking halls. Notes Tylenol makes him have upset stomach and would like to continue pain medications without that in it. KAVITA drain drained this morning. Plans for possible d/c tomorrow. Discussed overnight pulse ox to see if maybe would benefit from sleep study outpatient. Questions/concerns addressed at this time. No fever, chills, chest pain, shortness of breath, abdominal pain, nausea, vomiting or dysuria at this time. Review of Systems Review of Systems: All systems reviewed & are unremarkable except as noted in HPI & below Physical Exam Physical Exam: PHYSICAL EXAM: General: awake, alert, no apparent distress, sitting up in bed Head: Normocephalic, atraumatic ENT: PERRL, EOMI, no pharyngeal exudate, mucous membranes moist Neuro: AAO x 3, speech clear and appropriate, strength intact bilaterally 5/5, sensation intact and equal all extremities and dermatomes, no pronator drift Chest: equal rise and fall of the chest, no accessory muscle use, no heaves or thrills, decreased in bases secondary to body habitus, good air movement on 2LNC Cardiac: Regular rate and rhythm, skin warm dry, cap refill <3 seconds, peripheral pulses +2 no JVD, no murmur, no edema GI: NABS x 4 quadrants, soft, nontender to palpation, no rebound, guarding or tenderness : Spontaneously voiding, no pain, no CVA tenderness, MSK/Extremities: Normal inspection, no peripheral edema or erythema, calfs nontender to palpation. dressing to lumbar spine with some shadowing. KAVITA drain with 50cc bloody drainage. NVI. pulses palpable bilaterally. strength equal Psych: Normal mood and affect Skin: no rash or erythema Results & Data Results & Data ([facility]) Vital Signs (Past 12 Hours) Vital Signs Temp Pulse Resp BP Pulse Ox 10/05/20 07:46 36.9 C 99 H 18 149/80 H 93 10/05/20 03:07 36.6 C 100 H 18 134/77 94 10/04/20 22:39 37.0 C 100 H 18 121/75 93 Laboratory Results 10/05/20 10/05/20 10/04/20 Range/Units 05:36 05:36 21:03 WBC 8.88 (4.8-10.8) K/uL RBC 3.93 L (4.7-6.1) M/uL Hgb 12.5 L (14.0-18.0) g/dL Hct 36.4 L (42-52) % MCV 92.6 (80-100) fL MCH 31.8 (25-34) pg MCHC 34.3 (32-36) g/dL RDW Std Deviation 46.6 H (36.4-46.3) fL RDW Coeff of Padmini 13.6 (11.5-14.5) % Plt Count 207 (130-400) K/uL MPV 10.1 (7.4-10.4) fL Immature Gran % (Auto) 0.2 % Neut % (Auto) 64.8 % Lymph % (Auto) 18.6 % [place] % (Auto) 11.8 % Eos % (Auto) 4.1 % Baso % (Auto) 0.5 % Neut # (Auto) 5.76 (1.4-6.5) K/uL Lymph # (Auto) 1.65 (1.2-3.4) K/uL [place] # (Auto) 1.05 H (0.11-0.59) K/uL Eos # (Auto) 0.36 (0-0.5) K/uL Baso # (Auto) 0.04 (0-0.2) K/uL Immature Gran # (Auto) 0.02 (0.00-0.02) K/uL Sodium 137 (136-145) mmol/L Potassium 4.0 (3.5-5.1) mmol/L Chloride 107 (98-107) mmol/L Carbon Dioxide 28 (21-32) mmol/L Anion Gap 2.0 L (3-11) BUN 13 (7-18) mg/dl Creatinine 0.88 (0.6-1.4) mg/dl Est Cr Clr Drug Dosing 50.7 ml/min Est GFR ( Amer) 112.1 ml/min Est GFR (Non-Af Amer) 96.7 ml/min BUN/Creatinine Ratio 14.3 (10-20) Glucose 125 H (70-99) mg/dl POC Glucose 123 H (70-99) mg/dl Calcium 8.0 L (8.5-10.1) mg/dl 10/04/20 10/04/20 10/04/20 Range/Units 17:14 15:51 09:52 WBC (4.8-10.8) K/uL RBC (4.7-6.1) M/uL Hgb (14.0-18.0) g/dL Hct (42-52) % MCV (80-100) fL MCH (25-34) pg MCHC (32-36) g/dL RDW Std Deviation (36.4-46.3) fL RDW Coeff of Padmini (11.5-14.5) % Plt Count (130-400) K/uL MPV (7.4-10.4) fL Immature Gran % (Auto) % Neut % (Auto) % Lymph % (Auto) % [place] % (Auto) % Eos % (Auto) % Baso % (Auto) % Neut # (Auto) (1.4-6.5) K/uL Lymph # (Auto) (1.2-3.4) K/uL [place] # (Auto) (0.11-0.59) K/uL Eos # (Auto) (0-0.5) K/uL Baso # (Auto) (0-0.2) K/uL Immature Gran # (Auto) (0.00-0.02) K/uL Sodium (136-145) mmol/L Potassium (3.5-5.1) mmol/L Chloride (98-107) mmol/L Carbon Dioxide (21-32) mmol/L Anion Gap (3-11) BUN (7-18) mg/dl Creatinine (0.6-1.4) mg/dl Est Cr Clr Drug Dosing ml/min Est GFR ( Amer) ml/min Est GFR (Non-Af Amer) ml/min BUN/Creatinine Ratio (10-20) Glucose (70-99) mg/dl POC Glucose 97 98 120 H (70-99) mg/dl Calcium (8.5-10.1) mg/dl PG Care Time/CCT Total # of Minutes Spent Total Time Spent with Patient: Total time spent is greater than 50% in coordination of care (as documented) at patient's floor/unit and/or counseling patient: Coding Level of Care Code 05543 Subseq Hosp Care Lvl 2 Diagnoses Lumbar spinal stenosis M48.061 CAD (coronary artery disease) I25.10 Hypertension I10 Hyperlipidemia E78.5 GERD (gastroesophageal reflux disease) K21.9 Diabetes mellitus, type 2 E11.9 SIDDHARTHA (obstructive sleep apnea) G47.33 Acute blood loss anemia D62
[2020-10-05] MEDS: LOSARTAN POTASSIUM 50 MG TAB PO SCH (08:28)
[2020-10-05] MEDS ORDERED: glipiZIDE 5 MG TAB PO SCH (09:00)
[2020-10-05] MEDS: HYDROmorphone INJ 1 MG/ML SYRINGE IV PRN ×3 (11:24→20:01)
--- NOTE | 2020-10-05 14:19 | Pharmacy Report ---
Pharmacy Glycemic Short Note 2 - Date of Service October 05, 2020 - Glycemic Short BSG Results (Last 24 hours): 10/04/20 10/04/20 10/04/20 15:51 17:14 21:03 Glucose POC Glucose 98 97 123 H 10/05/20 10/05/20 10/05/20 05:36 08:16 12:00 Glucose 125 H POC Glucose 169 H 118 H OUTPATIENT ANTIDIABETIC REGIMEN: * Glipizide 5 mg PO QAM * Metformin 1000 mg PO BID ASSESSMENT: * 54 y/o M admitted for spinal stenosis surgery. Patient with Type 2 diabetes managed at home only on oral anti-diabetic meds. * Oral agents are not recommended for inpatient use d/t drug interactions, changing PO intake, and difficulty titrating for acute hyper/hypoglycemia. ADA recommends re-initiating outpatient oral agents 1-2 days prior to discharge if/when appropriate if they were held on admission. * Will hold oral agents for admission and utilize SQ basal bolus insulin regimen which is the recommended regimen for inpatient glycemic control. Will initiate weight based insulin dosing for insulin sonya patient and titrate based on BSG trends. * Patient may have received Decadron 12 mg IV yesterday in the OR. Basal NPH insulin scale was ordered for him at dinner based on BSG but pt did not need it since BSG was 98 mg/dl. * Novolog was ordered based on wt and stress of 2. But patient only needed 1 unit o insulin yesterday total. * Fasting BSG was 125 mg/dl and post-prandial BSGs have been well controlled. * Continued Novolog parameters as yesterday. No basal needed for now. * Pt is ordered IV steroid (Decadron) tomorrow AM. Will asses if this might cause any hyperglycemia before adding a basal insulin. * Plan to resume oral Metformin tomorrow. PLAN FOR INPATIENT GLYCEMIC CONTROL: * Hold outpatient oral diabetes medications * Basal insulin * none * Bolus insulin * NovoLog per scale ACHS or Q6hrs while NPO * Goal Range: Low 110 mg/dL - High 140 mg/dL * Correction Factor: 20 mg/dL/unit * Nutritional / Prandial insulin per carb ratio of 1 unit per 15 grams CHO consumed PLAN FOR DISCHARGE: * HbA1c = 6.2% on 09/20/20 * Goal A1c is less than 7%. A1c indicates patient with well controlled diabetes. * Recommend resuming Glipizide and Metformin home doses on discharge if patient is not reporting any hypoglycemia.
[2020-10-05] MEDS: DOCUSATE SODIUM/SENNA 50/8.6MG TAB PO SCH (20:00)
[2020-10-05] MEDS: ATORVASTATIN 40 MG TAB PO SCH (20:00)
[2020-10-05] MEDS: AMITRIPTYLINE HCL 100 MG TAB PO SCH (20:01)
[2020-10-06] MEDS: POLYETHYLENE (MIRALAX) 17 GM PACK PO SCH ×3 (00:56→12:57)
[2020-10-06] MEDS: oxyCODONE HCL IR 5 MG TAB (IMMEDIATE RELEASE) PO PRN ×2 (06:19→10:48)
[2020-10-06 06:39] LABS: Hematocrit (blood only) 36.2 % (42-52); Hemoglobin 11.9 g/dL (14.0-18.0); Mean Corpuscular Hemoglobin 30.9 pg (25-34); Mean Corpuscular Hgb Conc 32.9 g/dL (32-36); Mean Platelet Volume 10.3 fL (7.4-10.4); Platelet Count 192 K/uL (130-400); RDW Coefficient of Variation 13.7 % (11.5-14.5); RDW Standard Deviation 47.6 fL (36.4-46.3); Red Blood Count 3.85 M/uL (4.7-6.1); White Blood Count 8.97 K/uL (4.8-10.8)
[2020-10-06 07:04] LABS: BUN Creatinine Ratio 11.1 (10-20); Calcium 7.8 mg/dl (8.5-10.1); Creatinine Clr Calc Pharmacy 57.2 ml/min; Est GFR (African American) 117.8 ml/min; Est GFR (Non-African American) 101.6 ml/min; Potassium 4.2 mmol/L (3.5-5.1)
[2020-10-06] MEDS ORDERED: bisacodyL 10 MG SUPP PR PRN (08:00)
--- NOTE | 2020-10-06 08:18 | Hospitalist Progress Note ---
Date of Service October 06, 2020 Assessment & Plan Admission and Anticipated Discharge Date Admission Date: October 04, 2020 Results & Data Results & Data ([facility]) Vital Signs (Past 12 Hours) Vital Signs Temp Pulse Pulse Pulse Resp BP Pulse Ox 10/06/20 04:00 90 10/05/20 23:40 100 H 98 H 10/05/20 23:26 36.8 C 90 18 143/80 H 93 10/05/20 21:00 88 Pulse Ox Pulse Ox 10/06/20 04:00 84 L 10/05/20 23:40 90 84 L 10/05/20 23:26 10/05/20 21:00 90 Laboratory Results 10/06/20 10/06/20 10/06/20 Range/Units 07:55 05:47 05:47 WBC 8.97 (4.8-10.8) K/uL RBC 3.85 L (4.7-6.1) M/uL Hgb 11.9 L (14.0-18.0) g/dL Hct 36.2 L (42-52) % MCV 94.0 (80-100) fL MCH 30.9 (25-34) pg MCHC 32.9 (32-36) g/dL RDW Std Deviation 47.6 H (36.4-46.3) fL RDW Coeff of Padmini 13.7 (11.5-14.5) % Plt Count 192 (130-400) K/uL MPV 10.3 (7.4-10.4) fL Sodium 139 (136-145) mmol/L Potassium 4.2 (3.5-5.1) mmol/L Chloride 106 (98-107) mmol/L Carbon Dioxide 32 (21-32) mmol/L Anion Gap 1.0 L (3-11) BUN 9 (7-18) mg/dl Creatinine 0.78 (0.6-1.4) mg/dl Est Cr Clr Drug Dosing 57.2 ml/min Est GFR ( Amer) 117.8 ml/min Est GFR (Non-Af Amer) 101.6 ml/min BUN/Creatinine Ratio 11.1 (10-20) Glucose 134 H (70-99) mg/dl POC Glucose 150 H (70-99) mg/dl Calcium 7.8 L (8.5-10.1) mg/dl 10/05/20 10/05/20 10/05/20 Range/Units 21:13 16:58 12:00 WBC (4.8-10.8) K/uL RBC (4.7-6.1) M/uL Hgb (14.0-18.0) g/dL Hct (42-52) % MCV (80-100) fL MCH (25-34) pg MCHC (32-36) g/dL RDW Std Deviation (36.4-46.3) fL RDW Coeff of Padmini (11.5-14.5) % Plt Count (130-400) K/uL MPV (7.4-10.4) fL Sodium (136-145) mmol/L Potassium (3.5-5.1) mmol/L Chloride (98-107) mmol/L Carbon Dioxide (21-32) mmol/L Anion Gap (3-11) BUN (7-18) mg/dl Creatinine (0.6-1.4) mg/dl Est Cr Clr Drug Dosing ml/min Est GFR ( Amer) ml/min Est GFR (Non-Af Amer) ml/min BUN/Creatinine Ratio (10-20) Glucose (70-99) mg/dl POC Glucose 129 H 109 H 118 H (70-99) mg/dl Calcium (8.5-10.1) mg/dl 10/05/20 Range/Units 08:16 WBC (4.8-10.8) K/uL RBC (4.7-6.1) M/uL Hgb (14.0-18.0) g/dL Hct (42-52) % MCV (80-100) fL MCH (25-34) pg MCHC (32-36) g/dL RDW Std Deviation (36.4-46.3) fL RDW Coeff of Padmini (11.5-14.5) % Plt Count (130-400) K/uL MPV (7.4-10.4) fL Sodium (136-145) mmol/L Potassium (3.5-5.1) mmol/L Chloride (98-107) mmol/L Carbon Dioxide (21-32) mmol/L Anion Gap (3-11) BUN (7-18) mg/dl Creatinine (0.6-1.4) mg/dl Est Cr Clr Drug Dosing ml/min Est GFR ( Amer) ml/min Est GFR (Non-Af Amer) ml/min BUN/Creatinine Ratio (10-20) Glucose (70-99) mg/dl POC Glucose 169 H (70-99) mg/dl Calcium (8.5-10.1) mg/dl PG Care Time/CCT Total # of Minutes Spent Total Time Spent with Patient: Total time spent is greater than 50% in coordination of care (as documented) at patient's floor/unit and/or counseling patient: Coding
[2020-10-06] MEDS ORDERED: dexAMETHasone 8 MG in SYRINGE 0 ML IV SCH (09:00)
[2020-10-06] MEDS ORDERED: LANTUS PER UNIT CHARGE SQ ONE (09:00)
[2020-10-06] MEDS: LOSARTAN POTASSIUM 50 MG TAB PO SCH (09:42)
[2020-10-06] MEDS: GABAPENTIN 100 MG CAP PO SCH (09:42)
[2020-10-06] MEDS: METOPROLOL SUCC 25MG EXT REL TAB PO SCH (09:42)
[2020-10-06] MEDS: ASPIRIN 81 MG ECTAB PO SCH (09:42)
[2020-10-06] MEDS: INSULIN ASPART 100 UNITS/ML 3 ML PEN SC SCH ×2 (09:43→13:00)
[2020-10-06] MEDS: FAMOTIDINE 20 MG TAB PO SCH (09:48)
--- NOTE | 2020-10-06 09:54 | Discharge Summary ---
Date of Service October 06, 2020 Admission HPI Per Admitting Provider This is a 54-year-old male presents with chronic persistent back and leg pain. Failing since course of nonoperative care is here for surgical invention. Principal Diagnosis Lumbar spinal stenosis with neurogenic claudication Discharge Data Allergies Allergy/AdvReac Type Severity Reaction Status Date / Time shellfish derived Allergy Severe THROAT Verified 09/13/20 11:51 SWELLS tramadol Allergy Mild HIVES Verified 09/13/20 11:51 Consultations 10/04/20 10:44 Consult Hospitalist Routine Procedures Performed Operation Date: 10/04/20 07:45 Actual Procedures p L4-L5 Decompression Fusion with Insertion of Interbody, Spinal Cord Monitoring(Not Applicable) - Mynor Purcell DO Ordered Studies 10/04/20 07:45 FL lumbar spine 2-3V Routine Hospital Course (1) Neurogenic claudication due to lumbar spinal stenosis: Patient with lumbar decompression fusion tolerated this well was taken to orthopedic for postoperative. Postop day 1 he was up and having ambulating progressive postop day #2 KAVITA drain decreasing probably. Excellent strength testing. Pain well controlled. Subsequent discharge home. Discharge orders and instructions were on the chart for further review. Total Time Total Time Spent Total Time Spent (In Minutes): 20 minutes Discharge Plan Discharge Items Patient Disposition: Home - Self-Care Reason For Visit: Spinal Stenosis, Lumbar Region without Neurogenic Discharge Diagnosis: Lumbar spinal stenosis with neurogenic claudication Activity: As commented below Non-emergency contact: Primary Care Provider Call non-emergency contact if: you have any medication questions Follow-up/Referrals: Elias Lee DO [Primary Care Provider] - Diet: Regular Addtl Attending Provider Instructions: ACTIVITY RECOMMENDATIONS: SELF CARE INSTRUCTIONS AFTER THORACIC/LUMBAR FUSIONS 1. You may walk to your tolerance. It is good exercise for your legs and back. Expect some back and intermittent leg aches and pains. 2. You may perform "counter-top" level activities (make a sandwich, maricel with a project, etc.). 3. No bending or lifting of more than 10 pounds or back twisting of any nature (roll like a log when turning in bed). 4. You may ride in a car for 20-30 minutes at a time. No driving until after your first visit with your doctor. 5. Frequent changes of position and restricting sitting to 30 minutes at a time will help limit the amount of back spasms and stiffness you may experience. 6. You may discontinue the use of ambulatory aids (cane, crutches, etc.) once your strength and confidence allow. 7. You may clam dredge boat captain the shower and let water strike your incision when you arrive home at least once daily. Do not take a tub bath, sit in a hot tub or go into a swimming pool until after your first recheck in the office. SPECIAL CARE INSTRUCTIONS: VERY IMPORTANT TO READ AND REVIEW A. Your surgical incision has been closed with a cosmetic suture under the skin that will dissolve in about 6 weeks. In 14 days, you can use a pair of clean scissors and cut the suture that is left outside of the skin at the ends of your incision. 1. The small skin tapes can be removed 7 days after surgery if they have not fallen off by that point. 2. You may keep the wound open to air as much as possible to promote healing after post-op day number 5 unless told otherwise by your doctor. 3. If you think the wound looks like it is becoming infected (redness or worsening drainage) and/or you are experiencing fever, chill or worsening back pain and muscle spasms, contact the office so that we may evaluate you as soon as possible. B. Complications are uncommon, but please contact us if you have any signs or symptoms of: 1. wound infection (fever higher than 102.5 degrees F, redness, separation of wound, drainage, or increasing pain from the incision) 2. blood clots in legs (pain, swelling, redness and warmth in legs) 3. urinary tract infection (fever higher than 102.5 degrees F, burning upon urination or increased frequency of urination) 4. nerve problems (inability to walk on your toes or heels, numbness, loss of bowel or bladder control) 5. any other symptoms that concern you C. Please call the office at if you have any concerns or questions about your operation or recovery. D. No smoking! Smoking drastically decreases the chance of a solid fusion. E. Do not take any anti-inflammatory medications (Indocin, Advil, Motrin, Aspirin, Naprosyn, etc.) as these may inhibit the chance of a solid fusion. Tylenol is okay to take for pain. MANAGING PAIN AFTER SPINAL SURGERY 1. Narcotic medication is intended for short-term use and will be provided for surgical pain. Surgical pain usually lasts for a period of 4-6 weeks. Narcotic medication includes Percocet, Vicodin, Darvocet, Tylenol #3 or Lortab. 2. Longer-term pain is more appropriately treated with non-narcotic medication such as Tylenol ES. 3. Muscle spasm is not appropriately treated with narcotics. Muscle relaxers such as Soma, Flexeril or Skelaxin can be used along with Tylenol ES. 4. Remember that we all live with some "aches and pains". This is not unusual or uncommon after an injury or as we get older. a. Back pain is expected and may include muscle spasms for 4 to 6 weeks after surgery. The pain should gradually improve. If the pain worsens for no apparent reason, please contact the office. b. Intermittent leg pain may also be experienced and should not be concerned about unless it worsens for no apparent reason. If so, please contact the office. 5. We will provide appropriate medication within the normal guidelines of their prescribed use. We will also be very cautious and aware of potential abuse and extended duration of patients' medication needs. a. Pain medications are for your comfort and to assist with sleep and rest so that the tissue can heal. They are not provided in order to return to normal activity and should not be used through the day. To do so or worsening pain at night can result from ongoing tissue damage and development of tolerance to the prescribed medicine. 6. Please allow 2-3 days to process refills. Prescriptions will not be mailed but must be picked up at the office. FOLLOW UP VISIT: Keep your scheduled follow-up appointment. Any questions, please call the office at . Pending Studies at Discharge: No Stand-Alone Forms: My [facility], Smoking Cessation Medications and DC Order Prescriptions: New oxycodone 5 mg tablet 5 mg PO Q6H PRN (Reason: pain, severe) Qty: 30 RF: 0 Continued oxycodone 5 mg tablet 5 mg PO Q6 PRN (Reason: pain) Qty: 30 RF: 0 losartan [Cozaar] 50 mg Tablet 50 mg PO QAM RF: 0 atorvastatin [Lipitor] 80 mg Tablet 80 mg PO HS RF: 0 famotidine [Pepcid] 20 mg Tablet 20 mg PO BID RF: 0 gabapentin 100 mg Capsule 100 mg PO BID RF: 0 amitriptyline 100 mg Tablet 100 mg PO HS RF: 0 aspirin [Aspirin Low Dose] 81 mg Tablet,Delayed Release (Dr/Ec) 81 mg PO QAM RF: 0 metoprolol succinate [Toprol XL] 25 mg Tablet Extended Release 24 Hr 25 mg PO QAM RF: 0 metformin 1,000 mg Tablet 1,000 mg PO BID RF: 0 glipizide 5 mg Tablet 5 mg PO QAM RF: 0 Discharge Orders: Discharge Order (Routine); Ordered 10/06/20 Ordered By: Mynor Purcell Admission Data Admit Date/Time: 10/04/20 09:33 Attending Provider: Mynor Purcell Admit Provider: Mynor Purcell Primary Care Provider: Elias Lee Other Providers: Usha Bryson
--- NOTE | 2020-10-06 11:00 | Communication Note ---
Date of Service: October 06, 2020 Stopped by to see patient this morning. Doing well. Pain controlled. Plans for d/c this afternoon. Discussed overnight pulse ox study and given CM rx for O2 to wear HS. Had dropped to low of 77 but maintained sat 90% on 2L. Recommend following up with PCP for outpatient sleep study in the future.
--- NOTE | 2020-10-06 12:56 | Pharmacy Report ---
Pharmacy Glycemic Short Note 2 - Date of Service October 06, 2020 - Glycemic Short BSG Results (Last 24 hours): 10/05/20 10/05/20 10/06/20 16:58 21:13 05:47 Glucose 134 H POC Glucose 109 H 129 H 10/06/20 10/06/20 07:55 11:57 Glucose POC Glucose 150 H 132 H OUTPATIENT ANTIDIABETIC REGIMEN: * Glipizide 5 mg PO QAM * Metformin 1000 mg PO BID ASSESSMENT: 10/06/20: * Patient received total of 12 units of bolus insulin yesterday; no basal. * Fasting BSG was 134 mg/dl. * IV Decadron 8 mg daily ordered today. IV Steroid that was most likely given in OR did not increase patient's BSGs two days ago. However, still ordered a low dose of basal Lantus this morning to prevent potential steroid induced hyperglycemia. * Post prandial BSGs yesterday at goal. Continued current Novolog parameters. 10/05/20: * 54 y/o M admitted for spinal stenosis surgery. Patient with Type 2 diabetes managed at home only on oral anti-diabetic meds. * Oral agents are not recommended for inpatient use d/t drug interactions, changing PO intake, and difficulty titrating for acute hyper/hypoglycemia. ADA recommends re-initiating outpatient oral agents 1-2 days prior to discharge if/when appropriate if they were held on admission. * Will hold oral agents for admission and utilize SQ basal bolus insulin regimen which is the recommended regimen for inpatient glycemic control. Will initiate weight based insulin dosing for insulin sonya patient and titrate based on BSG trends. * Patient may have received Decadron 12 mg IV yesterday in the OR. Basal NPH insulin scale was ordered for him at dinner based on BSG but pt did not need it since BSG was 98 mg/dl. * Novolog was ordered based on wt and stress of 2. But patient only needed 1 unit o insulin yesterday total. * Fasting BSG was 125 mg/dl and post-prandial BSGs have been well controlled. * Continued Novolog parameters as yesterday. No basal needed for now. * Pt is ordered IV steroid (Decadron) tomorrow AM. Will asses if this might cause any hyperglycemia before adding a basal insulin. * Plan to resume oral Metformin tomorrow. PLAN FOR INPATIENT GLYCEMIC CONTROL: * Hold outpatient oral diabetes medications * Basal insulin * Lantus 11 units x 1 this AM. * Bolus insulin: continued * NovoLog per scale ACHS or Q6hrs while NPO * Goal Range: Low 110 mg/dL - High 140 mg/dL * Correction Factor: 20 mg/dL/unit * Nutritional / Prandial insulin per carb ratio of 1 unit per 15 grams CHO consumed PLAN FOR DISCHARGE: * HbA1c = 6.2% on 09/20/20 * Goal A1c is less than 7%. A1c indicates patient with well controlled diabetes. * Recommend resuming Glipizide and Metformin home doses on discharge if patient is not reporting any hypoglycemia.
== END 2020-10-06 14:42 | disposition home or self-care (01) | DRG 454 ==
LOC: ASU 05:53 → PACUINP 09:33 → 3E 10:02

== ENCOUNTER 2021-10-08 06:42 | Observation (INO) ==
--- NOTE | 2021-09-12 16:01 | PAT Medication Instructions ---
Medication Instructions Date of Service September 12, 2021 Home Medications amitriptyline 100 mg tablet 100 mg PO HS atorvastatin 80 mg tablet (Lipitor) 80 mg PO HS famotidine 20 mg tablet (Pepcid) 20 mg PO BID gabapentin 100 mg capsule 100 mg PO BID losartan 50 mg tablet (Cozaar) 50 mg PO QAM metoprolol succinate 25 mg tablet,extended release 24 hr (Toprol XL) 25 mg PO QAM metformin 1,000 mg tablet 1,000 mg PO BID glipizide 5 mg tablet 5 mg PO QAM melatonin 10 mg tablet 10 mg PO HS oxycodone 10 mg tablet 10 mg PO HS PRN ASK your prescriber and surgeon amitriptyline 100 mg tablet 100 mg PO HS DO NOT take the morning of surgery losartan 50 mg tablet (Cozaar) 50 mg PO QAM metformin 1,000 mg tablet 1,000 mg PO BID glipizide 5 mg tablet 5 mg PO QAM Take morning of surgery With a small sip of water, OTHERWISE NOTHING TO EAT OR DRINK AFTER MIDNIGHT: famotidine 20 mg tablet (Pepcid) 20 mg PO BID gabapentin 100 mg capsule 100 mg PO BID metoprolol succinate 25 mg tablet,extended release 24 hr (Toprol XL) 25 mg PO QAM Take evening before surgery atorvastatin 80 mg tablet (Lipitor) 80 mg PO HS famotidine 20 mg tablet (Pepcid) 20 mg PO BID gabapentin 100 mg capsule 100 mg PO BID metformin 1,000 mg tablet 1,000 mg PO BID melatonin 10 mg tablet 10 mg PO HS oxycodone 10 mg tablet 10 mg PO HS PRN (if needed) Other Notes If you have any questions please call us at [phone] or [phone] or [phone] or [phone]
--- NOTE | 2021-09-18 08:25 | Anesthesiology Consultation ---
Date of Service September 18, 2021 Assessment & Plan (1) Encounter for pre-operative examination: - will request most recent cardiology office note. - hx glidescope intubation: L4-L5 decompression fusion 10/04/2020: elective glidescope 3. ETT 8.0. H/o cervical fusion. - COVID screening: Per assessment on 09/18/2021: Travel screen negative, no known COVID-19 positive contacts or current COVID-19 related symptoms in past 2 weeks. Pt vaccinated. Surgeon arranging preop COVID testing, scheduled 10/04/2021. Awaiting results. Chart Review Chart Review: Pending: Refer to Additional Notes / Consult section and Patient seen in Pre Admission Testing Teaching & Discussion Pre-Anesthesia Teaching/Discussion Notes: Instructed NPO after midnight before surgery, except medications with 15 cc of water. Medication instructions provided according to the PAT guidelines. History Surgery Operation Date: 10/08/21 12:15 Proposed Procedures p Right Total Shoulder Arthroplasty Reverse - Pratik Latham, Height/Weight Height: 5 ft 11 in Weight: 132.2 kg Allergies Allergy/AdvReac Type Severity Reaction Status Date / Time shellfish derived Allergy Severe THROAT Verified 09/07/21 13:17 SWELLS tramadol Allergy Mild HIVES Verified 09/07/21 13:17 Medications Home Medications Medication Instructions Recorded Confirmed Last Taken amitriptyline 100 mg tablet 100 mg PO HS 02/16/19 09/07/21 10/03/20 20:00 atorvastatin 80 mg tablet (Lipitor) 80 mg PO HS 02/16/19 09/07/21 10/02/20 famotidine 20 mg tablet (Pepcid) 20 mg PO BID 02/16/19 09/07/21 10/03/20 08:00 gabapentin 100 mg capsule 100 mg PO BID 02/16/19 09/07/21 10/03/20 08:00 losartan 50 mg tablet (Cozaar) 50 mg PO QAM 02/16/19 09/07/21 10/03/20 08:00 metoprolol succinate 25 mg 25 mg PO QAM 02/23/19 09/07/21 10/04/20 04:30 tablet,extended release 24 hr (Toprol XL) metformin 1,000 mg tablet 1,000 mg PO BID 02/29/20 09/07/21 10/03/20 08:00 glipizide 5 mg tablet 5 mg PO QAM 09/13/20 09/07/21 10/03/20 08:00 melatonin 10 mg tablet 10 mg PO HS 09/07/21 09/07/21 Unknown oxycodone 10 mg tablet 10 mg PO HS PRN 09/07/21 09/07/21 Unknown Past Medical History Medical History (Updated 09/18/21 @ 14:14 by Sindi Tello PA-C) CAD (coronary artery disease) 2006 x 2 stents (LAD, Diagonal)[facility]; 2011 (PADMINI D1)[facility]; cardiac stents x3 total (most recent stent 2011) No recent issues Degenerative disc disease s/p cervical fusion Diabetes mellitus, type 2 NIDDM Difficult intubation s/p cervical spine fusion. GERD (gastroesophageal reflux disease) controlled Hyperlipidemia Hypertension controlled, stable per pt Myocardial Infarction HX, 2012 > stents SIDDHARTHA (obstructive sleep apnea) no cpap Patient denies h/o stroke, seizures, heart failure, blood clots or blood transfusions. Exercise / Class Metabolic Activity II 4-5 Yardwork/Stairs/Walk up hill (denies CP or SOB with 1 FOS) Past Family History Family History Father Family history of diabetes mellitus Other No family history of adverse response to anesthesia Past Surgical History Surgical History (Updated 09/18/21 @ 08:37 by Sindi Tello PA-C) Fusion of spine ACDF C6-C7, C5 corpectomy: 08/08/10: MAC#4, ETT 7.5 at [facility] FULL ROM History of cardiac cath 2006 (LAD, Dx), 2011 (PADMINI D1); cardiac stents x3 total (most recent stents 2 012); x2 [facility], x1 [place]; f/u PCP History of colonoscopy History of esophageal dilatation History of esophagogastroduodenoscopy (EGD) History of hip surgery right hip (as a child) History of lumbar fusion 10/04/2020: elective glidescope 3. ETT 8.0. History of repair of rotator cuff right History of tooth extraction History of total knee replacement right knee S/P arthroscopy of right shoulder 03/18/19. 02/29/20. LMA#5. Past Anesthesia History No Hx of Anesthesia Complications and No Family Hx of Anesthesia Complications History of PONV No Hx of PONV and No Hx of Motion Sickness Social History Smoking Status: Former smoker tobacco type: cigarettes Do You Dip or Chew Tobacco: No Smoking End Date: quit 8-10 years ago Hx Alcohol Use: Yes Alcohol type: beer alcohol intake frequency: holidays/special occasions only Hx Substance Use: No substance use type: does not use Review of Systems Patient denies chest pain, shortness of breath, dyspnea on exertion, fever, chills, cough, wheezing, or palpitations. Physical Exam Vital Signs Vitals BP 141/85 P 81 TEMP 98.4 SP02 98% on RA RESP 17 Physical Short thick neck Full cervical extension range of motion without pain TMD 3 finger breadths Mallampati Score 4 Dentition: intact, denies chipped or loose teeth, caps/crowns, implants or bridges Lungs: normal respiratory effort. Clear throughout to auscultation, no adventitious breath sounds Cardiac: regular rate and rhythm, no murmurs noted Carotid arteries: negative bruit bilat Lab Results Anesthesia Preop Results Results Anesthesia Widget: WBC 8.11 K/ul (4.8-10.8) 09/18/21 Hgb 14.3 g/dl (14.0-18.0) 09/18/21 Hct 41.2 % (40.1-51.0) 09/18/21 Plt 193 K/uL (130-400) 09/18/21 Na 139 mmol/L (136-145) 09/18/21 K 4.5 mmol/L (3.5-5.1) 09/18/21 Cl 104 mmol/L (98-107) 09/18/21 CO2 29 mmol/L (21-32) 09/18/21 BUN 10 mg/dl (6-23) 09/18/21 Creat 0.80 mg/dl (0.6-1.4) 09/18/21 Glucose Level 128 mg/dl (70-99(Fasting)) H 09/18/21 PT 11.5 Seconds (9.0-12.0) 09/18/21 PTT 26.8 Seconds (21.0-31.0) 09/18/21 INR 1.1 (0.9-1.1) 09/18/21 HA1c 6.3 % (4.5-5.6) H 09/18/21 Blood Type A Positive 09/18/21 Antibody Screen NEGATIVE 09/18/21 Testing Electrocardiogram Date: 09/18/21 NSR, rate 82 bpm Chest X-Ray Date: 09/18/21 No lines and tubes are seen. The cardiomediastinal silhouette is normal. The lungs are clear. No evidence of pleural effusion or pneumothorax. IMPRESSION: No acute chest disease. Echocardiogram Date: 09/22/20 EF 50% Severe hypokinesis of the mid-distal anterior and mid-distal anterolateral flynn and basal inferoseptum and basal inferior wall Mild cLVH No significant valvular pathology Cervical Spine Date: 05/22/21 MRI Cervical spine: Vertebral body height and alignment is maintained throughout the cervical spine. There is extensive postoperative change from anterior fusion seen at C4-C7. There is associated straightening of cervical lordosis. Anterior osteophytes are seen throughout. The atlantodental articulation is maintained. The spinous processes appear intact. There is no marrow edema or evidence of destructive bony lesion. Intervertebral discs: There is evidence of discectomy at C4-C5, C5-C6, and C6- C7. Disc desiccation and moderate loss of height is seen at the remaining cervical levels. Spinal cord: The cervical cord is normal in morphology and signal intensity. C2-C3: There is a large right lateral disc bulge seen on axial image #15. This contributes to moderate to severe central canal stenosis and likely impinges on the exiting right C3 nerve root. A posterior disc osteophyte complex minimally effaces the ventral subarachnoid space. Uncovertebral arthropathy is noted on the left. The left neural foramen is clear. C3-C4: A posterior disc osteophyte complex abuts the ventral cord. Lateral disc bulge is seen bilaterally. In conjunction with facet arthropathy there is severe right and moderate to severe left neural foraminal stenosis. This likely impinges on the exiting bilateral C4 nerve roots. C4-C5: Predominantly uncovertebral arthropathy contributes to mild bilateral neural foraminal stenosis, right greater than left. The central canal appears clear. C5-C6: Predominant uncovertebral arthropathy contributes to mild bilateral neural foraminal stenosis. The central canal is clear. C6-C7: Lateral disc bulge is seen bilaterally, left greater than right. This contributes to moderate to severe left greater than right neural foraminal stenosis and may impinge on the exiting bilateral C7 nerve roots. There is no significant acquired compromise of the central canal. C7-T1: There is a posterior disc herniation eccentric to the left which effaces the left aspect of the ventral cord. This contributes to moderate to severe left-sided neural foraminal stenosis and impinges on the exiting left C8 nerve root. Mild neural foraminal narrowing is seen on the right. T1-T2: There is a large left lateral disc herniation which effaces the left aspect of the ventral cord. There is severe left-sided neural foraminal stenosis with impingement on the exiting left T1 nerve root. Right lateral disc bulge contributes to moderate neural foraminal stenosis and may impinge on the exiting right T1 nerve root. T2-T3: Posterior disc bulge effaces the ventral subarachnoid space. The neural foramina appear clear. Soft tissues: The prevertebral and paraspinous soft tissues are normal as visualized. Brain parenchyma: The imaged brain parenchyma at the skull base is within normal limits. IMPRESSION: 1. Postoperative change with multilevel spondylosis of the cervical and upper th oracic spine as detailed above. See discussion for detailed level by level analysis. 2. The cervical cord is normal in morphology and signal intensity. 3. No destructive bony process is identified.
--- NOTE | 2021-10-04 12:27 | History & Physical Report ---
Date of Service October 04, 2021 Assessment & Plan (1) Rotator cuff tear, right: We will proceed with a right reverse total arthroplasty. Postoperatively he will be placed in a sling and kept overnight for postoperative medical management. He plans to use energy physical therapy upon discharge. History of Present Illness Chief Complaint: Cuff tear arthropathy of the right shoulder. Primary Care Provider: Roberto Esposito Kareem is a pleasant 55-year-old male who recently underwent 2 right rotator cuff repairs. He is still really struggling with the shoulder. He has weakness. He has pain doinganything away from his body or up over his head. Repeat MRI shows complete rupture and retraction of the rotator cuff. After failing conservative treatment, he has elected proceed with a right reverse shoulder arthroplasty. Allergies Allergy/AdvReac Type Severity Reaction Status Date / Time shellfish derived Allergy Severe THROAT Verified 09/07/21 13:17 SWELLS tramadol Allergy Mild HIVES Verified 09/07/21 13:17 Home Medications Medication Instructions Recorded Confirmed Type amitriptyline 100 mg tablet 100 mg PO HS 02/16/19 09/07/21 History atorvastatin 80 mg tablet (Lipitor) 80 mg PO HS 02/16/19 09/07/21 History famotidine 20 mg tablet (Pepcid) 20 mg PO BID 02/16/19 09/07/21 History gabapentin 100 mg capsule 100 mg PO BID 02/16/19 09/07/21 History losartan 50 mg tablet (Cozaar) 50 mg PO QAM 02/16/19 09/07/21 History metoprolol succinate 25 mg 25 mg PO QAM 02/23/19 09/07/21 History tablet,extended release 24 hr (Toprol XL) metformin 1,000 mg tablet 1,000 mg PO BID 02/29/20 09/07/21 History glipizide 5 mg tablet 5 mg PO QAM 09/13/20 09/07/21 History melatonin 10 mg tablet 10 mg PO HS 09/07/21 09/07/21 History oxycodone 10 mg tablet 10 mg PO HS PRN pain, sleep 09/07/21 09/07/21 History Past Med/Surg History Medical History CAD (coronary artery disease) 2006 x 2 stents (LAD, Diagonal)[facility]; 2012 (PADMINI D1)[facility]; cardiac stents x3 total (most recent stent 2011) No recent issues Degenerative disc disease s/p cervical fusion Diabetes mellitus, type 2 NIDDM Difficult intubation s/p cervical spine fusion. GERD (gastroesophageal reflux disease) controlled Hyperlipidemia Hypertension controlled, stable per pt Myocardial Infarction HX, 2012 > stents SIDDHARTHA (obstructive sleep apnea) no cpap Surgical History Fusion of spine ACDF C6-C7, C5 corpectomy: 08/08/10: MAC#4, ETT 7.5 at [facility] FULL ROM History of cardiac cath 2006 (LAD, Dx), 2012 (PADMINI D1); cardiac stents x3 total (most recent stents 2011); x2 [facility], x1 [place]; f/u PCP History of colonoscopy History of esophageal dilatation History of esophagogastroduodenoscopy (EGD) History of hip surgery right hip (as a child) History of lumbar fusion 10/04/2020: elective glidescope 3. ETT 8.0. History of repair of rotator cuff right History of tooth extraction History of total knee replacement right knee S/P arthroscopy of right shoulder 03/18/19. 02/29/20. LMA#5. Family History Father Family history of diabetes mellitus Other No family history of adverse response to anesthesia Social History Smoking Status: Former smoker Second Hand Exposure: No; Hx Alcohol Use: Yes Alcohol type: beer Hx Substance Use: No Preferred Language: Barbadian Communication Ability: Effective Heater Operator Required: No Beliefs That Will Affect Care: None marital status: Current Living Situation: Spouse Feels Safe at Home: Yes Assistive Devices: Glasses Review of Systems All systems reviewed & are unremarkable except as noted in HPI & below. Physical Exam On physical examination of the right shoulder, he has about 160 degrees of forward elevation. He has 4 out of 5 motion with the full can testing and external rotation. He has pain with range of motion.. Constitutional WD/WN, vitals as above Eyes PERRL, conjunctivae normal, anicteric sclerae ENMT external ear and nose normal, oropharynx normal Neck trachea midline, no thyromegaly Respiratory normal respiratory effort, lungs clear to auscultation Cardiovascular RRR, no murmur, no edema Gastrointestinal (Abdomen) normal bowel sounds, soft, nontender, no hepatosplenomegaly Skin no rashes, warm and dry Psychiatric A+Ox3, euthymic affect Results & Data Results & Data Laboratory Results . Diagnostic Findings X-rays of the right shoulder show some mild osteoarthritis with some blunting of the tuberosity MRI of the right shoulder shows a massive retracted rotator cuff tear with fat atrophy of the muscle bellies.. PG Care Time/CCT Total # of Minutes Spent Total Time Spent with Patient: Total time spent is greater than 50% in coordination of care (as documented) at patient's floor/unit and/or counseling patient: Coding Level of Care Code None Diagnoses Rotator cuff tear, right M75.101
[~2021-10-08 06:42] MED LIST changes: +ACETAMINOPHEN 500 MG TAB PO SCH; -AMLO-114 PO; -ASPI-461 PO; +BUPIVACAINE 0.5 % 5 MG/1 ML PF 10ML VIAL ONE; -CLOP1TAB15 PO; +GABAPENTIN 600 MG DOSE PO SCH; +LR 15ML/HR IV SCH; +LR 60ML/HR IV SCH; -METO100T14 PO; +TRANEXAMIC ACID 1,000 MG **IV Intra-op IV SCH; +TRANEXAMIC ACID 1,000 MG **IV Pre-op IV SCH; -ZNTT/150 PO; -ZOLP10TA PO; +dexAMETHasone 4 MG TAB PO SCH
[2021-10-08] MEDS ORDERED: ONDANSETRON INJ 2 MG/ML 2 ML VIAL ONE (07:22)
[2021-10-08] MEDS ORDERED: fentaNYL citrate 100 MCG/2 ML VIAL ONE (07:22)
[2021-10-08] MEDS ORDERED: ROCURONIUM BROMIDE 10 MG/ML 5 ML VIAL IV ONE (07:22)
[2021-10-08] MEDS ORDERED: MIDAZOLAM HCL 1 MG/ML 2ML VIAL ONE (07:22)
[2021-10-08] MEDS ORDERED: DEXAMETHASONE SOD INJ 4 MG/ML VIAL ONE (07:22)
[2021-10-08] MEDS ORDERED: PROPOFOL IV EMULSION 10 MG/ML 20 ML VIAL IV ONE (07:22)
--- NOTE | 2021-10-08 08:25 | History & Physical Bridge Note ---
Date of Service October 08, 2021 History & Physical Bridge Note I have examined the patient, reviewed the History & Physical and in the interval since the performance of the History & Physical I have noted the following changes of clinical significance: no changes noted
[2021-10-08] MEDS ORDERED: ONDANSETRON INJ 2 MG/ML 2 ML VIAL IV PRN ×2 (08:33→11:49)
[2021-10-08] MEDS ORDERED: ATROPINE SULFATE 0.1 MG/ML 10ML SYR IV PRN (08:33)
[2021-10-08] MEDS ORDERED: ePHEDrine sulfate 50 MG/ML AMP IV PRN (08:33)
[2021-10-08] MEDS ORDERED: SUGAMMADEX SODIUM 200 MG/2 ML VIAL IV ONE ×2 (08:43→10:18)
[2021-10-08] MEDS ORDERED: Ketorolac (*for OR use only*) 30 MG, dexAMETHasone 4 MG, KETAMINE HCL (**OR use only) 1... INFIL SCH (09:00)
[2021-10-08] MEDS ORDERED: SUCCINYLCHOLINE CHLORIDE 20 MG/ML 10 ML VIAL IV ONE (09:25)
--- NOTE | 2021-10-08 10:13 | Operative Report ---
PG Post Operative Report Pre & Post Diagnosis Operation Date: 10/08/21 08:50 Pre-Op Diagnosis: Massive chronic rotator cuff tear of the right shoulder Post-Op Diagnosis: Massive chronic rotator cuff tear of the right shoulder I identified the patient and participated in the time-out.: Yes Procedure Operation Date: 10/08/21 08:50 Actual Procedures p Right Reverse Total Shoulder Arthroplasty(Right) - Pratik Latham DO Surgeon Pratik Latham DO [employer] Pratik Barron PA-C Estimated Blood Loss 200 Findings Consistent with Post-Op Diagnosis Specimens None Description of Procedure Implants used: I used a [employer]omet Comprehensive reverse total shoulder arthroplasty system with a size 10 press fit micro humeral stem, a standard humeral tray and a standard humeral bearing, a 25 mm small augment baseplate with a 6.5 mm central screw and superior and inferior locking screws, and a size 40 mm eccentric glenosphere. Kareem arrived at [facility] for the above procedure. He was seen in the preoperative holding area and the operative extremity was identified and signed. He was given a preoperative antibiotic, TXA, and an interscalene nerve block. He was taken back to the operating room, laid on table in supine position, and put under general anesthesia. He was then put into the beachchair position. The shoulder was then prepped and draped in sterile fashion. A timeout was done and the patient and the operative extremity was properly identified. A deltopectoral approach was used. Dissection was taken down through the fascia and the deltoid was retracted laterally and the conjoined tendon was retracted medially. The anterior shoulder was exposed. The biceps tendon had been previously tenodesed. The subscapularis was was mostly torn and the remnant was directly released off the lesser tuberosity with a peel technique. The inferior capsule was released and the humeral head was dislocated. The supraspinatus and most infraspinatus were completely torn. The tendon was retracted back to the level of the glenoid. The cuff tear was certainly unrepairable. A canal finding reamer was sent down the center of the humeral canal. Sequential reaming up to a size 10 reamer was done. Off that reamer, a proximal humeral resection guide was placed. The proximal humerus was resected at 135 of inclination and 25 of retroversion. Osteophytes were then removed and the glenoid was exposed. Time was spent doing a complete capsular and labral release. The glenoid guide was then placed in the inferior aspect of the glenoid. A 3.2 mm Steinmann pin was then placed into the glenoid vault at 10 of inclination. The glenoid baseplate was then reamed. The final size 25 mm small augment baseplate was then impacted in the place. A 6.5 mm central screw was then placed followed by superior and inferior locking screws. A 40 mm eccentric glenosphere was then impacted into place. Surrounding soft tissues were then injected with 100 cc an orthopedic pain control cocktail. The proximal humerus was then exposed. Sequential broaching of the humerus up to a size 10 broach was done. Off that broach a standard humeral tray was trialed. The shoulder was then reduced, brought through a full range of motion, and felt to be stable. The shoulder was then dislocated and the broach was removed. The final size 10 micro press-fit humeral stem was then impacted into place. A standard humeral bearing was then snapped onto a standard humeral tray. The humeral tray was then impacted onto the humeral stem. The shoulder was once again reduced, brought through a full range of motion, and felt to be stable. The subscapularis was chronically torn and not able to be repaired. A dilute betadyne lavage was then done for 3 minutes. The joint was then irrigated with normal saline solution. Hemostasis was obtained. The interval was closed with 2-0 Vicryl suture. The skin was then closed with 2-0 Vicryl and virgil. A Silverlon dressing was placed and the arm was rested in a regular arm sling. He was then extubated and transferred to a hospital bed. He taken to the postanesthesia care unit in stable condition. He tolerated the procedure well. Pratik Barron PA-C, was present for the entire procedure. He was critical for patient positioning, prepping, draping, retraction exposure, wound closure and application of sterile dressing. I attest to the content of the Intraoperative Record and any orders documented therein. Any exceptions are noted below.
[2021-10-08] MEDS: fentaNYL citrate 100 MCG/2 ML VIAL IV PRN ×2 (11:01→11:06)
--- NOTE | 2021-10-08 11:45 | Anesthesiology Progress Note ---
Date of Service October 08, 2021 Anesthesia Post Procedure Vital Signs Vital Signs: Temp Pulse Pulse Resp BP BP Pulse Ox 10/08/21 11:30 105 H 20 123/84 93 10/08/21 11:20 108 H 19 120/86 92 10/08/21 11:10 98.1 F 104 H 20 134/87 95 10/08/21 11:00 101 H 17 129/89 94 10/08/21 10:50 102 H 22 130/86 93 10/08/21 10:40 112 H 20 130/96 92 10/08/21 10:31 97.9 F 113 H 16 176/97 H 92 10/08/21 07:15 97.9 F 80 20 157/98 H 98 O2 Del Method O2 Flow Rate 10/08/21 11:30 Nasal Cannula 2 10/08/21 11:20 Nasal Cannula 2 10/08/21 11:10 Oxymask 3 10/08/21 11:00 Oxymask 4 10/08/21 10:50 Oxymask 6 10/08/21 10:40 Oxymask 10 10/08/21 10:31 Oxymask 15 10/08/21 07:15 Room Air Pain Intensity Right Shoulder: Pain Intensity: 4 Transfer of Care Handoff Completed per policy Notes Mental Status: alert / awake / arousable and participated in evaluation Patient Amnestic to Procedure: Yes Nausea / Vomiting: adequately controlled Pain: adequately controlled Airway Patency, RR, SpO2: stable & adequate BP & HR: stable & adequate Hydration State: stable & adequate Anesthetic Complications: no major complications apparent and Pt Satisfied with anesthetic care
[2021-10-08] MEDS ORDERED: NALOXONE HCL 0.4 MG/1 ML VIAL/CARP IV PRN (11:49)
[2021-10-08] MEDS ORDERED: METOCLOPRAMIDE HCL INJ 5 MG/ML 2 ML VIAL IV PRN (11:49)
[2021-10-08] MEDS ORDERED: bisacodyL 10 MG SUPP PR PRN (11:49)
[2021-10-08] MEDS ORDERED: SODIUM CHLORIDE 0.9% 1000ML 1,000 ML IV SCH (11:49)
[2021-10-08] MEDS ORDERED: HYDROmorphone INJ 0.5 MG/0.5 ML SYR IV PRN (11:49)
[2021-10-08] MEDS ORDERED: PHARMACY GLYCEMIC MGMT CONSULT PRN (11:49)
[2021-10-08] MEDS ORDERED: MAGNESIUM HYDROXIDE SUSP 30 ML UDC PO PRN (11:49)
[2021-10-08] MEDS: oxyCODONE HCL IR 5 MG TAB (IMMEDIATE RELEASE) PO PRN ×3 (12:32→21:15)
[2021-10-08] MEDS ORDERED: CARBOHYDRATES FOR HYPOGLYCEMIA PO PRN (12:45)
[2021-10-08] MEDS ORDERED: GLUCOSE 10 TAB/TUBE PO PRN (12:45)
[2021-10-08] MEDS ORDERED: LANTUS PER UNIT CHARGE SQ ONE (12:45)
[2021-10-08] MEDS ORDERED: DEXTROSE 50% 50 ML SYRINGE IV PRN (12:45)
[2021-10-08] MEDS ORDERED: GLUCAGON FOR INJ 1 MG VIAL IM PRN (12:45)
[2021-10-08] MEDS ORDERED: GLUCOSE 40% GEL 15 GM TUBE PO PRN (12:45)
--- NOTE | 2021-10-08 12:47 | Pharmacy Report ---
Pharmacy Glycemic Short Note 2 - Date of Service October 08, 2021 - Glycemic Short BSG Results (Last 24 hours): 10/08/21 10/08/21 10/08/21 07:10 10:34 12:08 POC Glucose 127 H 164 H 160 H OUTPATIENT ANTIDIABETIC REGIMEN: * Metformin 1000 mg PO BID * Glipizide 5 mg PO BID HbA1c: 6.3% (09/18/21) ASSESSMENT: * RP is a 56 year old male POD #0 s/p right reverse total shoulder arthroplasty * Received perioperative dexamethasone (8 mg PO, 4 mg IV, and intra-articular ortho-mix containing dexamethasone) * Preop BSG of 127 mg/dL, postoperative BSG of 160 mg/dL * Will give conservative weight-based basal dose with aggressive Novolog to help cover steroids * Can likely restart home meds in AM PLAN FOR INPATIENT GLYCEMIC CONTROL: * Hold outpatient oral diabetes medications * Reassess in AM - can likely restart * Basal insulin * Lantus 25 units SQ x 1 (~0.2 unit/kg) * Bolus insulin * NovoLog per scale ACHS or Q6hrs while NPO * Goal Range: Low 110 mg/dL - High 140 mg/dL * Correction Factor: 15 mg/dL/unit * Nutritional / Prandial insulin per carb ratio of 1 unit per 6 grams CHO consumed
--- NOTE | 2021-10-08 12:57 | XRay Report ---
XR shoulder RT min 2V routine CLINICAL HISTORY: Post shoulder surgery COMPARISON STUDY: Right shoulder 10/15/2018. FINDINGS: The patient is status post a reverse right total shoulder arthroplasty. Hardware appears in tact. No fracture or dislocation. Skin virgil are in place. Cervical spinal fusion hardware is also noted. IMPRESSION: Status post reverse right total shoulder arthroplasty. No evidence for hardware complica tion. ACT 112: Negative or not required by law. Electronically signed by: Walt Luna M.D. 10/08/2021 12:55 PM
[2021-10-08] MEDS: KETOROLAC 30 MG/ML VIAL IV SCH ×3 (13:42→23:52)
[2021-10-08] MEDS: INSULIN ASPART PER UNIT SC SCH ×3 (13:43→21:15)
[2021-10-08] MEDS: ACETAMINOPHEN 500 MG TAB PO SCH ×2 (13:44→21:17)
[2021-10-08] MEDS: ceFAZolin 2000MG 2,000 MG/15 ML SYR IV SCH ×2 (18:45→23:52)
[2021-10-08] MEDS ORDERED: AMITRIPTYLINE HCL 100 MG TAB PO SCH (21:00)
[2021-10-08] MEDS ORDERED: MELATONIN 3 MG TAB PO SCH (21:00)
[2021-10-08] MEDS ORDERED: TAMSULOSIN HCL 0.4 MG CAP PO SCH (21:00)
[2021-10-08] MEDS ORDERED: SENNA 8.6 MG TAB PO SCH (21:00)
[2021-10-08] MEDS ORDERED: ATORVASTATIN 40 MG TAB PO SCH (21:00)
[2021-10-08] MEDS: DOCUSATE SODIUM 100 MG CAP PO SCH (21:15)
[2021-10-08] MEDS: FAMOTIDINE 20 MG TAB PO SCH (21:17)
[2021-10-08] MEDS: GABAPENTIN 100 MG CAP PO SCH (21:17)
[2021-10-09] MEDS: KETOROLAC 30 MG/ML VIAL IV SCH ×2 (04:45→11:03)
[2021-10-09] MEDS: ACETAMINOPHEN 500 MG TAB PO SCH (04:46)
[2021-10-09] MEDS: oxyCODONE HCL IR 5 MG TAB (IMMEDIATE RELEASE) PO PRN ×3 (04:46→11:48)
--- NOTE | 2021-10-09 07:04 | Orthopedic Progress Note ---
Date of Service October 09, 2021 Assessment & Plan (1) Status post reverse total replacement of right shoulder: Overall he is doing well. He is not having too much pain in the right shoulder. He will be seen by physical therapy today for ambulation and range of motion exercises. He can be discharged home later today. He will follow-up with orthopedics in 2 weeks. Linda Serna was seen and examined at bedside this morning. Overall is doing fairly well. Is not having too much pain in the right shoulder. He was able to get some sleep last night. He has no complaints.. Review of Systems All systems reviewed & are unremarkable except as noted in HPI & below. Physical Exam On physical examination of the right shoulder, the dressing is clean and dry. He has active motion of his hand and his wrist. He is wearing his sling as instructed.. Results & Data Results & Data Laboratory Results . Diagnostic Findings Postoperative x-rays of the right shoulder show the prosthesis to be in anatomic alignment without any evidence of fracture, desiccation, or loosening. PG Care Time/CCT Total # of Minutes Spent Total Time Spent with Patient: Total time spent is greater than 50% in coordination of care (as documented) at patient's floor/unit and/or counseling patient: Coding Level of Care Code 13232 Post Operative Follow-Up Diagnoses Status post reverse total replacement of right shoulder Z96.611
--- NOTE | 2021-10-09 07:05 | Discharge Summary ---
Date of Service October 09, 2021 Admission HPI (Per Admitting) Kareem is a pleasant 55-year-old male who recently underwent 2 right rotator cuff repairs. He is still really struggling with the shoulder. He has weakness. He has pain doinganything away from his body or up over his head. Repeat MRI shows complete rupture and retraction of the rotator cuff. After failing conservative treatment, he has elected proceed with a right reverse shoulder arthroplasty. Admission Exam (Per Admitting) On physical examination of the right shoulder, he has about 160 degrees of forward elevation. He has 4 out of 5 motion with the full can testing and external rotation. He has pain with range of motion.. Principal Diagnosis Same as "Discharge Diagnosis" noted below under Discharge Instructions. Discharge Exam On physical examination of the right shoulder, the dressing is clean and dry. He has active motion of his hand and his wrist. He is wearing his sling as instructed.. Discharge Data Procedures Performed Operation Date: 10/08/21 08:50 Actual Procedures p Right Reverse Total Shoulder Arthroplasty(Right) - Pratik Latham DO Ordered Studies 10/08/21 05:00 US - OR guided needle placemen Routine Hospital Course (1) Status post reverse total replacement of right shoulder: On October 08, 2021 Kareem arrived at [facility] and underwent a right reverse shoulder replacement without complication. He had a general anesthetic and a right interscalene nerve block. Postoperatively he was placed in a sling and transferred to the general orthopedic floors. His hospital course was uneventful. On postop day #1, his vital signs were stable and his pain was well controlled. He was able to participate well with physical therapy doing ambulation and range of motion exercises. He was then discharged home. He will follow-up with orthopedics in 2 weeks. PG Care Time/CCT Total # of Minutes Spent Total Time Spent with Patient: Total time spent is greater than 50% in coordination of care (as documented) at patient's floor/unit and/or counseling patient: Discharge Plan Discharge Items Patient Disposition: Home - Home Health Services Reason For Visit: Degenerative Joint Disease Shoulder Right Discharge Diagnosis: Right reverse shoulder replacement Activity: Per Instructions section Non-emergency contact: Surgeon Call non-emergency contact if: your wound has increased redness and your wound has increased drainage Follow-up/Referrals: Roberto Esposito [Primary Care Provider] - Diet: Regular Addtl Attending Provider Instructions: Activity and Therapy Recommendations: * If you are using [facility] then therapy will be provided at your home until they feel you have accomplished all of your goals. * If you are using [facility] then Physical Therapy will be provided until they feel you are ready to start Outpatient Physical Therapy. * If you are not using home therapy then Outpatient Physical Therapy should start about 3-5 days from your day of surgery. Therapy will last about 8-12 weeks * Wear your sling for 3 weeks, unless otherwise instructed. You may remove your sling to shower and to dress, but otherwise, you should be in your sling at all times, including while sleeping * The shoulder replacement is very stable and you can use your hand while in the sling * You were shown a series of exercises in the hospital. Do these exercises daily including the exercises you were shown in physical therapy. Medications: * Narcotic You will likely be sent home from the hospital with a prescription for the narcotic pain medication that worked best throughout your stay. * Other medications may be prescribed for specific circumstances. If you have any questions, please call the office at . * Resume previous home medications unless otherwise instructed Dressing Care: Leave the Silverlon dressing in place for 7 days. After 7 days you may remove the dressing. If the incision is not draining then you may leave the virgil open to air. If there is a little bit of drainage or if the virgil are getting stuck on your clothing then cover the incision with a dry dressing. The virgil will be removed at your 2 week follow-up appointment. Showering: You may shower with the Silverlon dressing in place. Do not let the shower spray hit the dressing directly. Pat the Silverlon dressing dry. If the dressing becomes wet underneath, then simply remove the dressing. Keep the incision dry until you are 7 days out from the day of surgery. After 7 days you may remove the Silverlon dressing and shower with the virgil exposed. Let soapy water run over the virgil and pat them dry. Do not scrub or soak the incision. Things To Watch For: * Drainage from the incision site that occurs more than one week after your surgery. * Increased redness at the incision site. * Fever above 102 degrees Fahrenheit. * Unusual chest pain or shortness of breath. * Call [facility] at with any of the above problems Follow-Up Visit: Follow-up with Dr. Latham's PA (Pratik Barron) 2-3 weeks after your day of surgery. He will remove your virgil and answer any questions. If you have any additional questions or concerns, Dr Latham is usually in the office at the same time and will be available An appointment was probably scheduled when you signed-up for surgery in the office. If you have any questions call More detailed instructions as well as Frequently Asked Questions were provided in a folder by our office when you signed-up for surgery. Please review these instructions when you get home. If you have any further questions or concerns, please feel free to call the office at [phone] Pending Studies at Discharge: No Stand-Alone Forms: My [facility], Smoking Cessation Medications and DC Order Prescriptions: Continued losartan [Cozaar] 50 mg Tablet 50 mg PO QAM atorvastatin [Lipitor] 80 mg Tablet 80 mg PO HS famotidine [Pepcid] 20 mg Tablet 20 mg PO BID gabapentin 100 mg Capsule 100 mg PO BID amitriptyline 100 mg Tablet 100 mg PO HS metoprolol succinate [Toprol XL] 25 mg Tablet Extended Release 24 Hr 25 mg PO QAM metformin 1,000 mg Tablet 1,000 mg PO BID glipizide 5 mg Tablet 5 mg PO QAM melatonin 10 mg Tablet 10 mg PO HS tamsulosin 0.4 mg Capsule 0.4 mg PO HS oxycodone 10 mg Tablet 10 mg PO HS PRN (Reason: pain, sleep) Qty: 60 0RF Discharge Orders: Discharge Order (Routine); Ordered 10/09/21 Ordered By: Pratik Latham Admission Data Admit Date/Time: 10/08/21 10:32 Attending Provider: Pratik Latham Admit Provider: Pratik Latham Primary Care Provider: Roberto Esposito
[2021-10-09] MEDS ORDERED: dexAMETHasone 4 MG TAB PO SCH (08:00)
[2021-10-09] MEDS: DOCUSATE SODIUM 100 MG CAP PO SCH (08:42)
[2021-10-09] MEDS: GABAPENTIN 100 MG CAP PO SCH (08:42)
[2021-10-09] MEDS: FAMOTIDINE 20 MG TAB PO SCH (08:42)
[2021-10-09] MEDS: INSULIN ASPART PER UNIT SC SCH (08:46)
[2021-10-09] MEDS ORDERED: MULTIVITAMIN TAB PO SCH (09:00)
[2021-10-09] MEDS ORDERED: LOSARTAN POTASSIUM 50 MG TAB PO SCH (09:00)
[2021-10-09] MEDS ORDERED: LANTUS PER UNIT CHARGE SQ ONE (09:00)
[2021-10-09] MEDS ORDERED: METOPROLOL SUCC 25MG EXT REL TAB PO SCH (09:00)
--- NOTE | 2021-10-09 11:01 | Pharmacy Report ---
Pharmacy Glycemic Short Note 2 - Date of Service October 09, 2021 - Glycemic Short BSG Results (Last 24 hours): 10/08/21 10/08/21 10/08/21 12:08 16:56 20:24 POC Glucose 160 H 163 H 184 H 10/09/21 07:55 POC Glucose 146 H OUTPATIENT ANTIDIABETIC REGIMEN: * Metformin 1000 mg PO BID * Glipizide 5 mg PO BID * HbA1c = 6.3% (09/18/21) ASSESSMENT: 10/09: * Mr. Guan received a total of 41 units of insulin yesterday (25 units Lantus + 16 units Novolog). BSGs last evening were: 163-184 mg/dL. * Fasting BSG was slightly above goal at 146 mg/dL. Will give a slightly increased dose of Lantus this AM since patient will receive a dose of PO dexamethasone. * No changes to Novolog at this time. 10/08: * RP is a 56 year old male POD #0 s/p right reverse total shoulder arthroplasty * Received perioperative dexamethasone (8 mg PO, 4 mg IV, and intra-articular ortho-mix containing dexamethasone) * Preop BSG of 127 mg/dL, postoperative BSG of 160 mg/dL * Will give conservative weight-based basal dose with aggressive Novolog to help cover steroids * Can likely restart home meds in AM PLAN FOR INPATIENT GLYCEMIC CONTROL: * Hold outpatient oral diabetes medications * Basal insulin * Lantus 30 units SC x 1 * Bolus insulin * NovoLog per scale ACHS or Q6hrs while NPO * Goal Range: Low 110 mg/dL - High 140 mg/dL * Correction Factor: 15 mg/dL/unit * Nutritional / Prandial insulin per carb ratio of 1 unit per 6 grams CHO consumed
[2021-10-09] MEDS ORDERED: oxyCODONE HCL IR 5 MG TAB (IMMEDIATE RELEASE) PO STA (11:03)
== END 2021-10-09 12:42 | disposition home or self-care (01) ==
LOC: ASU 06:42 → 3E 06:42

== ENCOUNTER 2022-04-26 07:34 | Inpatient (IN) ==
--- NOTE | 2022-04-05 14:05 | PAT Medication Instructions ---
Medication Instructions Date of Service April 05, 2022 Home Medications Medication Instructions Recorded oxycodone 10 mg tablet 10 mg PO Q6H PRN pain #30 tabs 10/31/21 amitriptyline 100 mg tablet 100 mg PO HS atorvastatin 80 mg tablet (Lipitor) 80 mg PO HS famotidine 20 mg tablet (Pepcid) 20 mg PO BID gabapentin 100 mg capsule 100 mg PO BID losartan 50 mg tablet (Cozaar) 50 mg PO QAM metoprolol succinate 25 mg tablet,extended release 24 hr (Toprol XL) 25 mg PO QAM metformin 1,000 mg tablet 1,000 mg PO BID melatonin 10 mg tablet 10 mg PO HS oxycodone 10 mg tablet 10 mg PO Q6H PRN pain paroxetine HCl 30 mg tablet (Paxil) 30 mg PO QAM ASK your prescriber and surgeon amitriptyline 100 mg tablet 100 mg PO HS DO NOT take the morning of surgery losartan 50 mg tablet (Cozaar) 50 mg PO QAM metformin 1,000 mg tablet 1,000 mg PO BID Take morning of surgery With a small sip of water, OTHERWISE NOTHING TO EAT OR DRINK AFTER MIDNIGHT: famotidine 20 mg tablet (Pepcid) 20 mg PO BID gabapentin 100 mg capsule 100 mg PO BID metoprolol succinate 25 mg tablet,extended release 24 hr (Toprol XL) 25 mg PO QAM oxycodone 10 mg tablet 10 mg PO Q6H PRN pain (if needed) paroxetine HCl 30 mg tablet (Paxil) 30 mg PO QAM Take evening before surgery atorvastatin 80 mg tablet (Lipitor) 80 mg PO HS famotidine 20 mg tablet (Pepcid) 20 mg PO BID gabapentin 100 mg capsule 100 mg PO BID metformin 1,000 mg tablet 1,000 mg PO BID melatonin 10 mg tablet 10 mg PO HS oxycodone 10 mg tablet 10 mg PO Q6H PRN pain (if needed) Other Notes If you have any questions please call us at [phone] or [phone] or [phone] or [phone]
--- NOTE | 2022-04-12 12:41 | Anesthesiology Consultation ---
Date of Service April 12, 2022 Assessment & Plan (1) Encounter for pre-operative examination: Plan - check BSG am DOS. - cardiology 09/27/21 PSH: "...cardiac clearance for right shoulder replacement ...history of stents in 2003 and , and [place] with cardiac arrest in 2011 all secondary to cocaine use, htn, dyslipidemia...can ascend a flight of stairs without chest pain or sob and generally feels well...not having any concerning anginal symptoms...advised him to resume given his history of stents and stent thrombosis...snore apparently quite loudly...will have him get a sleep study...RCRI is calculated at 6% for 30 day risk of cardiac complication or . Reviewed his EKG that he had done with preop anesthesia as well as his lab work. No concerning findings...does not need further testing from a cardiac perspective prior to his surgery..." - difficult intubation: Right reverse total shoulder replacement (10/08/21): Glidescope#3, ETT 7.5 + PNB at [facility]. *Difficult airway* per anesthesia record comments. No issues noted per post-op anesthesia progress note. Chart Review Chart Review: Acceptable Risk for Surgery and Patient seen in Pre Admission Testing Teaching & Discussion Pre-Anesthesia Teaching/Discussion Notes: Instructed NPO after midnight before surgery, except medications with 15 cc of water. Medication instructions provided according to the PAT guidelines. History Surgery Operation Date: 04/26/22 10:05 Proposed Procedures p L3-L4 and L5-S1 Decompression and Fusion, L4-L5 Hardware Removal, Spinal Cord Monitoring - Mynor Purcell, Height/Weight Height: 5 ft 11 in Weight: 125.8 kg Allergies Allergy/AdvReac Type Severity Reaction Status Date / Time shellfish derived Allergy Severe Throat Verified 04/08/22 12:45 swelling tramadol Allergy Mild Hives, Verified 04/08/22 12:45 dizziness, nausea acetaminophen AdvReac Mild Upset Verified 04/08/22 12:45 stomach Medications Home Medications Medication Instructions Recorded Confirmed Last Taken amitriptyline 100 mg tablet 100 mg PO HS 02/16/19 04/05/22 10/07/21 22:00 atorvastatin 80 mg tablet (Lipitor) 80 mg PO HS 02/16/19 04/05/22 10/07/21 22:00 famotidine 20 mg tablet (Pepcid) 20 mg PO BID 02/16/19 04/05/22 10/07/21 08:00 gabapentin 100 mg capsule 100 mg PO BID 02/16/19 04/05/22 10/07/21 22:00 losartan 50 mg tablet (Cozaar) 50 mg PO QAM 02/16/19 04/05/22 10/07/21 08:00 metoprolol succinate 25 mg 25 mg PO QAM 02/23/19 04/05/22 10/07/21 08:00 tablet,extended release 24 hr (Toprol XL) metformin 1,000 mg tablet 1,000 mg PO BID 02/29/20 04/05/22 10/07/21 07:00 melatonin 10 mg tablet 10 mg PO HS 09/07/21 04/05/22 Unknown oxycodone 10 mg tablet 10 mg PO Q6H PRN pain #30 tabs 10/31/21 04/05/22 Unknown paroxetine HCl 30 mg tablet (Paxil) 30 mg PO QAM 04/05/22 04/05/22 Unknown Past Medical History Medical History (Updated 04/12/22 @ 13:10 by Sindi Tello PA-C) CAD (coronary artery disease) 2006 x 2 stents (LAD, Diagonal) 2011 (PADMINI D1) cardiac stents x3 total (most recent stent 2011) No recent issues Degenerative disc disease s/p cervical fusion Diabetes mellitus, type 2 NIDDM GERD (gastroesophageal reflux disease) controlled, stable per pt Hyperlipidemia Hypertension controlled, stable per pt Myocardial Infarction 2012 > stents SIDDHARTHA (obstructive sleep apnea) pt states the last sleep study was negative Patient denies h/o stroke, seizures, heart failure, blood clots or blood transfusions. Exercise / Class Metabolic Activity II 4-5 Yardwork/Stairs/Walk up hill (denies chest discomfort or shortness of breath with 1 FOS) Past Family History Family History Father Family history of diabetes mellitus Other No family history of adverse response to anesthesia Past Surgical History Surgical History (Updated 04/08/22 @ 12:47 by Jonelle Ragsdale) Difficult intubation Right reverse total shoulder replacement (10/08/21): Glidescope#3, ETT 7.5 + PNB at [facility]. *Difficult airway* per anesthesia record comments. No issues noted per post-op anesthesia progress note. Fusion of spine ACDF C6-C7, C5 corpectomy: 08/08/10: MAC#4, ETT 7.5 at [facility] History of cardiac cath 2006 x 2 stents (LAD, Diagonal) 2011 (PADMINI D1) History of colonoscopy History of esophageal dilatation History of esophagogastroduodenoscopy (EGD) History of hip surgery right hip (as a child) History of lumbar fusion 10/04/2020: elective glidescope 3. ETT 8.0. History of repair of rotator cuff right History of reverse total replacement of right shoulder joint Right reverse total shoulder replacement (10/08/21): Glidescope#3, ETT 7.5 + PNB at [facility]. *Difficult airway* per anesthesia record comments. No issues noted per post-op anesthesia progress note. History of tooth extraction History of total knee replacement right knee S/P arthroscopy of right shoulder 03/18/19. 02/29/20. LMA#5. Past Anesthesia History Difficult Airway and No Family Hx of Anesthesia Complications History of PONV No Hx of PONV and No Hx of Motion Sickness Social History Smoking Status: Former smoker tobacco type: cigarettes Do You Dip or Chew Tobacco: No Smoking End Date: ~2010 Hx Alcohol Use: Yes Alcohol type: beer alcohol intake frequency: holidays/special occasions only Hx Substance Use: No substance use type: does not use Review of Systems Patient denies chest pain, shortness of breath, dyspnea on exertion, fever, chills, cough, wheezing, or palpitations. Physical Exam Vital Signs Vitals BP 142/92 P 91 TEMP 98.9 SP02 96% on RA RESP 17 Physical Full cervical extension range of motion without pain TMD 3.5 finger breadths Mallampati Score 3 Dentition: several missing teeth; denies chipped or loose teeth, caps/crowns, implants or bridges Lungs: normal respiratory effort. Clear throughout to auscultation, no adventitious breath sounds Cardiac: regular rate and rhythm, no murmurs noted Carotid arteries: negative bruit bilat Lab Results Anesthesia Preop Results Results Anesthesia Widget: WBC 13.12 K/ul (4.8-10.8) H 04/12/22 Hgb 15.6 g/dl (14.0-18.0) 04/12/22 Hct 43.9 % (42.0-52.0) 04/12/22 Plt 251 K/uL (130-400) 04/12/22 Na 139 mmol/L (136-145) 04/12/22 K 4.3 mmol/L (3.5-5.1) 04/12/22 Cl 100 mmol/L (98-107) 04/12/22 CO2 29 mmol/L (21-32) 04/12/22 BUN 14 mg/dl (6-23) 04/12/22 Creat 0.78 mg/dl (0.6-1.4) 04/12/22 Glucose Level 139 mg/dl (70-99(Fasting)) H 04/12/22 PT 11.1 Seconds (9.0-12.0) 04/12/22 PTT 26.4 Seconds (21.0-31.0) 04/12/22 INR 1.0 (0.9-1.1) 04/12/22 HA1c 6.5 % (4.5-5.6) H 04/12/22 Urine Color Yellow 04/12/22 Urine Appearance Clear (Clear) 04/12/22 Urine pH 7.0 (4.5-7.5) 04/12/22 Urine Specific [place] 1.016 (1.000-1.030) 04/12/22 Urine Protein Negative (Negative) 04/12/22 Urine Glucose (UA) Negative (Negative) 04/12/22 Urine Ketones Negative (Negative) 04/12/22 Urine Blood Negative (Negative) 04/12/22 Urine Nitrite Negative (Negative) 04/12/22 Urine Bilirubin Negative (Negative) 04/12/22 Urine Urobilinogen Negative (Negative) 04/12/22 Urine Leukocyte Esterase Negative (Negative) 04/12/22 Blood Type A Positive 04/12/22 Antibody Screen NEGATIVE 04/12/22 Testing Laboratory Results Surgeon's office made aware of elevated WBC with left shift. Electrocardiogram Date: 09/18/21 NSR, rate 82 bpm Chest X-Ray Date: 09/18/21 No lines and tubes are seen. The cardiomediastinal silhouette is normal. The lungs are clear. No evidence of pleural effusion or pneumothorax. IMPRESSION: No acute chest disease. Echocardiogram Date: 09/22/20 EF 50% Severe hypokinesis of the mid-distal anterior and mid-distal anterolateral flynn and basal inferoseptum and basal inferior wall Abnormal regional strain values in the mid-distal anterior and mid-distal anterolateral flynn and basal inferoseptum Mild cLVH No significant valvular pathology Cervical Spine Date: 05/22/21 MRI 1. Postoperative change with multilevel spondylosis of the cervical and upper thoracic spine as detailed above. See discussion for detailed level by level analysis. 2. The cervical cord is normal in morphology and signal intensity. 3. No destructive bony process is identified. 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
[~2022-04-26 07:34] MED LIST changes: -BUPIVACAINE 0.5 % 5 MG/1 ML PF 10ML VIAL ONE; +CeleBREX 200 MG CAP PO SCH; -GABAPENTIN 600 MG DOSE PO SCH; -LR 60ML/HR IV SCH; -TRANEXAMIC ACID 1,000 MG **IV Intra-op IV SCH; -TRANEXAMIC ACID 1,000 MG **IV Pre-op IV SCH; -dexAMETHasone 4 MG TAB PO SCH
[2022-04-26] MEDS ORDERED: HYDROmorphone INJ 1 MG/ML SYRINGE IV PRN (08:38)
[2022-04-26] MEDS ORDERED: ONDANSETRON INJ 2 MG/ML 2 ML VIAL IV PRN ×2 (08:38→13:34)
[2022-04-26] MEDS ORDERED: ATROPINE SULFATE 0.1 MG/ML 10ML SYR IV PRN (08:38)
[2022-04-26] MEDS ORDERED: ePHEDrine sulfate 50 MG/ML AMP IV PRN (08:38)
--- NOTE | 2022-04-26 08:43 | History & Physical Bridge Note ---
Date of Service April 26, 2022 History & Physical Bridge Note I have examined the patient, reviewed the History & Physical and in the interval since the performance of the History & Physical I have noted the following changes of clinical significance: no changes noted
--- NOTE | 2022-04-26 08:44 | History & Physical Report ---
Date of Service April 26, 2022 Assessment & Plan (1) Neurogenic claudication due to lumbar spinal stenosis: Plan: L3-L4 and L5-S1 decompression and fusion, L4-L5 hardware removal History of Present Illness Chief Complaint: Back and leg pain Primary Care Provider: Roberto Esposito This is a 56-year-old male presents with chronic persistent back and leg pain after failing course of nonoperative care is here for surgical invention. Allergies Allergy/AdvReac Type Severity Reaction Status Date / Time shellfish derived Allergy Severe Throat Verified 04/26/22 08:07 swelling tramadol Allergy Mild Hives, Verified 04/26/22 08:07 dizziness, nausea acetaminophen AdvReac Mild Upset Verified 04/26/22 08:07 stomach Home Medications Medication Instructions Recorded Confirmed Type amitriptyline 100 mg tablet 100 mg PO HS 02/16/19 04/26/22 History atorvastatin 80 mg tablet (Lipitor) 80 mg PO HS 02/16/19 04/26/22 History famotidine 20 mg tablet (Pepcid) 20 mg PO BID 02/16/19 04/26/22 History gabapentin 100 mg capsule 100 mg PO BID 02/16/19 04/26/22 History losartan 50 mg tablet (Cozaar) 50 mg PO QAM 02/16/19 04/26/22 History metoprolol succinate 25 mg 25 mg PO QAM 02/23/19 04/26/22 History tablet,extended release 24 hr (Toprol XL) metformin 1,000 mg tablet 1,000 mg PO BID 02/29/20 04/26/22 History melatonin 10 mg tablet 10 mg PO HS 09/07/21 04/26/22 History oxycodone 10 mg tablet 10 mg PO Q6H PRN pain #30 tabs 10/31/21 04/26/22 Rx paroxetine HCl 30 mg tablet (Paxil) 30 mg PO QAM 04/05/22 04/26/22 History Past Med/Surg History Medical History CAD (coronary artery disease) 2006 x 2 stents (LAD, Diagonal) 2011 (PADMINI D1) cardiac stents x3 total (most recent stent 2011) No recent issues Degenerative disc disease s/p cervical fusion Diabetes mellitus, type 2 NIDDM GERD (gastroesophageal reflux disease) controlled, stable per pt Hyperlipidemia Hypertension controlled, stable per pt Myocardial Infarction 2012 > stents SIDDHARTHA (obstructive sleep apnea) pt states the last sleep study was negative Surgical History Difficult intubation Right reverse total shoulder replacement (10/08/21): Glidescope#3, ETT 7.5 + PNB at [facility]. *Difficult airway* per anesthesia record comments. No issues noted per post-op anesthesia progress note. Fusion of spine ACDF C6-C7, C5 corpectomy: 08/08/10: MAC#4, ETT 7.5 at [facility] History of cardiac cath 2006 x 2 stents (LAD, Diagonal) 2011 (PADMINI D1) History of colonoscopy History of esophageal dilatation History of esophagogastroduodenoscopy (EGD) History of hip surgery right hip (as a child) History of lumbar fusion 10/04/2020: elective glidescope 3. ETT 8.0. History of repair of rotator cuff right History of reverse total replacement of right shoulder joint Right reverse total shoulder replacement (10/08/21): Glidescope#3, ETT 7.5 + PNB at [facility]. *Difficult airway* per anesthesia record comments. No issues noted per post-op anesthesia progress note. History of tooth extraction History of total knee replacement right knee S/P arthroscopy of right shoulder 03/18/19. 02/29/20. LMA#5. Family History Father Family history of diabetes mellitus Other No family history of adverse response to anesthesia Social History Smoking Status: Former smoker Smoking End Date: ~2010; Second Hand Exposure: No; Do You Dip or Chew Tobacco: No; Tobacco Cessation Education Requested by Patient: No Hx Alcohol Use: Yes Alcohol type: beer Hx Substance Use: No Preferred Language: Indonesian Communication Ability: Effective Records Management Director Required: No Beliefs That Will Affect Care: None marital status: Current Living Situation: Spouse Other Information That Helps Us Care for You: No Feels Safe at Home: Yes Safety Concerns: Feels Safe At This Time Assistive Devices: Glasses Physical Exam Physical Exam: Patient is alert and oriented Heart regular rhythm Lungs clear Results & Data Results & Data ([facility]) Vital Signs (Past 12 Hours) Vital Signs Temp Pulse Resp BP Pulse Ox O2 Del Method 04/26/22 07:51 37 C 77 20 156/82 H 96 Room Air
[2022-04-26] MEDS ORDERED: ceFAZolin 330 MG/ML 1 GM VIAL ONE (08:46)
[2022-04-26] MEDS ORDERED: BUPIVACAINE/EPINEPHRINE 0.25% 1:200,000 30 ML VIAL ONE (08:46)
[2022-04-26] MEDS ORDERED: LIDOCAINE 2% MPF LOCAL 5 ML VIAL INFIL ONE (08:55)
[2022-04-26] MEDS ORDERED: PROPOFOL IV EMULSION 10 MG/ML 20 ML VIAL IV ONE ×2 (08:55→09:56)
[2022-04-26] MEDS ORDERED: ROCURONIUM BROMIDE 10 MG/ML 5 ML VIAL IV ONE ×5 (08:55→10:03)
[2022-04-26] MEDS ORDERED: ONDANSETRON INJ 2 MG/ML 2 ML VIAL ONE (08:55)
[2022-04-26] MEDS ORDERED: MIDAZOLAM HCL 1 MG/ML 2ML VIAL ONE (08:56)
[2022-04-26] MEDS ORDERED: fentaNYL citrate 100 MCG/2 ML VIAL ONE (08:56)
[2022-04-26] MEDS ORDERED: HYDROmorphone INJ 2 MG/ML SYR/VIAL ONE ×2 (09:28→10:51)
[2022-04-26] MEDS ORDERED: FLOSEAL HEMOSTATIC MATRIX 10ML TOP ONE ×2 (10:02→10:18)
[2022-04-26] MEDS ORDERED: NEOSTIGMINE METHYLSULFATE 1 MG/ML 10ML VIAL ONE (11:39)
[2022-04-26] MEDS ORDERED: GLYCOPYRROLATE 0.2 MG/ML VIAL ONE (11:39)
[2022-04-26] MEDS ORDERED: PHENYLEPHRINE 100MCG/ML 5ML SYR ONE (11:44)
--- NOTE | 2022-04-26 11:48 | Operative Report ---
Post Operative Report Pre & Post Diagnosis Operation Date: 04/26/22 09:05 Pre-Op Diagnosis: Lumbar spinal stenosis with neurogenic claudication and radiculopathy Morbid obesity Post-Op Diagnosis: Same I identified the patient and participated in the time-out.: Yes Procedure Operation Date: 04/26/22 09:05 Actual Procedures #1 removal of posterior instrumentation L4-5. #2 exploration of fusion L4-5. #3 revision decompression with bilateral medial facetectomies and foraminotomies L2-L3, L3-L4 and L5-S1. #4 posterior spinal fusion L3-L4 L5-S1. #5 placement posterior segmental instrumentation L3-S1. #6 interbody fusion L3-L4 L5-S1. #7 placement of Spira 15 x 26 mm at L3-L4 and L5-S1. #8 placement locally harvested morselized autograft in the posterior gutters. #9 placement of I factor bone of the test interbody space and posterior lateral gutters. Surgeon Mynor Purcell, DO Purchase Order Checker Olman Holt Estimated Blood Loss 150 Findings See Below Patient is 5 foot 10 weighing over 121 kg with a BMI in excess of 38. Patient's body habitus did contribute to significant technical difficulty with positioning exposure requiring her deepest retractors and longer instruments. This had at l east 50% increased operative time. Specimens None Indications This is a 56-year-old male who presents above-mentioned diagnosis of failed course of nonoperative care is here for surgical invention. Description of Procedure Patient was met with identified informed consent obtained. Patient was then taken to the operative suite underwent a patient placed in a prone position on the [facility] frame. All bony prominences well-padded eyes inspected to ensure no external pressure placed upon the. This point the lumbar spine was prepped and draped in normal sterile fashion. Sharp dissection with the assistance of Bovie cautery was performed down to and exposing the lamina and transverse processes of L3 instrumentation at L4-L5 and S1 1 ala bilaterally. I then proceeded move the hardware at L4-5 bilaterally explore the fusion mass noting it to be mature and intact. Then performed revision complete laminectomy of L5 L3 partial laminectomy of L2 including bilateral medial facetectomies and foraminotomies addressing severe spinal stenosis. Pedicle screws were then placed in L3-L4-L5 and S1 levels bilaterally with assistance of fluoroscopy and the properly sized klaudia contoured and placed. By way of transforaminal approach and left pleat discectomy of L5-S1 was performed endplates corrected to subcortical bleeding bone and a 15 x 26 mm spiral cage with I factor tapped in position. Then proceeded to L3-L4 and again by way of a transforaminal approach on the left complete discectomy performed endplates curetted to subcortical bleeding bone and again a 15 x 26 mm spiral cage with I factor tapped in position. The rods were then locked in final position bilaterally. The transverse processes of L3-L4-L5 and the sacral ala burred to subcortical bleeding bone. I factor amount of the test and locally harvested morselized autograft was placed in the posterior lateral gutters. 15 round KAVITA drain inserted. The incision was then closed with 1 Vicryl fascia 2-0 Vicryl subcutaneously and 4 Monocryl for final skin closure. Steri-Strips dressings placed. Patient awakened taken to PACU in stable condition. Please note spinal cord monitoring utilized at the procedure no changes noted. Lastly Olman Holt was present at the entire surgery involved the patient positioning complex portions of the surgery and final skin closure. I attest to the content of the Intraoperative Record and any orders documented therein. Any exceptions are noted below.
[2022-04-26] MEDS ORDERED: LABETALOL HCL IV 5 MG/ML 20ML IV ONE (12:02)
--- NOTE | 2022-04-26 12:13 | Fluoroscopy Report ---
FL lumbar spine 2-3V CLINICAL HISTORY: L4-5 RH L3-4 L5-S1 DFI COMPARISON STUDY: None. FLUOROSCOPY TIME: 29 seconds FLUOROSCOPY IMAGES: 4 Ka, r: 27.9 mGy FINDINGS: Posterior decompression and fusion hardware seen from L3 through S1 with pedicle screws and rods. Hardware appears intact. Disc spacers are in place. IMPRESSION: Fluoroscopic assistance provided for posterior decompression and fusion within the lumbar spine. ACT 112: Negative or not required by law. Electronically signed by: Walt Luna M.D. 04/26/2022 12:11 PM
[2022-04-26] MEDS: fentaNYL citrate 100 MCG/2 ML VIAL IV PRN ×4 (12:40→12:55)
--- NOTE | 2022-04-26 13:25 | Anesthesiology Progress Note ---
Date of Service April 26, 2022 Anesthesia Post Procedure Vital Signs Vital Signs: Temp Pulse Resp BP Pulse Ox O2 Del Method O2 Flow Rate 04/26/22 13:10 97.9 F 81 17 154/88 H 95 Nasal Cannula 4 04/26/22 13:00 86 17 124/81 95 Nasal Cannula 4 04/26/22 12:50 81 17 152/80 H 97 Nasal Cannula 4 04/26/22 12:40 88 17 138/93 99 Oxymask 5 04/26/22 12:30 88 18 156/86 H 98 Oxymask 5 04/26/22 12:20 88 18 138/97 96 Oxymask 5 04/26/22 12:16 98.2 F 91 H 18 146/105 H 96 Oxymask 5 04/26/22 07:51 98.6 F 77 20 156/82 H 96 Room Air Pain Intensity Bilateral Back: Pain Intensity: 3 Transfer of Care Handoff Completed per policy Notes Mental Status: alert / awake / arousable and participated in evaluation Patient Amnestic to Procedure: Yes Nausea / Vomiting: adequately controlled Pain: adequately controlled Airway Patency, RR, SpO2: stable & adequate BP & HR: stable & adequate Hydration State: stable & adequate Anesthetic Complications: no major complications apparent and Pt Satisfied with anesthetic care
[2022-04-26] MEDS ORDERED: HYDROmorphone INJ 0.5 MG/0.5 ML SYR IV PRN (13:34)
[2022-04-26] MEDS ORDERED: ACETAMINOPHEN 1,000 MG/100 ML VIAL IV PRN (13:34)
[2022-04-26] MEDS ORDERED: FAMOTIDINE 20 MG TAB PO PRN (13:34)
[2022-04-26] MEDS ORDERED: ONDANSETRON 4 MG OD TAB PO PRN (13:34)
[2022-04-26] MEDS ORDERED: DO NOT ADMINISTER PNEUMOCOCCAL VACCINE PRN (13:34)
[2022-04-26] MEDS ORDERED: PROMETHAZINE HCL 12.5 MG in SODIUM CHLORIDE 0.9% 50 ML IV PRN (13:34)
[2022-04-26] MEDS ORDERED: LACTATED RINGER'S 1,000 ML IV SCH (13:34)
[2022-04-26] MEDS ORDERED: MAGNESIUM HYDROXIDE SUSP 30 ML UDC PO PRN (13:34)
[2022-04-26] MEDS ORDERED: ACETAMINOPHEN 500 MG TAB PO PRN (13:34)
[2022-04-26] MEDS ORDERED: SOD PHOSPHATE/SOD BIPHOSPHATE ENEMA 132 ML BTL PR PRN (13:34)
[2022-04-26] MEDS ORDERED: METOCLOPRAMIDE HCL INJ 5 MG/ML 2 ML VIAL IV PRN (13:34)
[2022-04-26] MEDS ORDERED: ALUMINUM/MAGNESIUM SUSP 30 ML UDC PO PRN (13:34)
[2022-04-26] MEDS ORDERED: hydrOXYzine HCl 25 MG TAB PO PRN (13:34)
[2022-04-26] MEDS ORDERED: LORazepam 0.5 MG TAB PO PRN (13:34)
[2022-04-26] MEDS ORDERED: DO NOT ADMINISTER FLU VACCINE PRN (13:34)
[2022-04-26] MEDS ORDERED: diphenhydrAMINE Capsule 25 MG CAP PO PRN (13:34)
[2022-04-26] MEDS ORDERED: bisacodyL 10 MG SUPP PR PRN (13:34)
[2022-04-26] MEDS ORDERED: NALOXONE HCL 0.4 MG/1 ML VIAL/CARP IV PRN (13:34)
[2022-04-26] MEDS ORDERED: LORazepam 2 MG/1 ML VIAL IV PRN (13:34)
[2022-04-26] MEDS ORDERED: PHARMACY GLYCEMIC MGMT CONSULT PRN ×2 (13:34→16:33)
[2022-04-26] MEDS ORDERED: GLUCOSE 10 TAB/TUBE PO PRN ×2 (14:30→16:33)
[2022-04-26] MEDS ORDERED: GLUCAGON FOR INJ 1 MG VIAL IM PRN (14:30)
[2022-04-26] MEDS ORDERED: GLUCOSE 40% GEL 15 GM TUBE PO PRN ×2 (14:30→16:33)
[2022-04-26] MEDS ORDERED: DEXTROSE 50% 50 ML SYRINGE IV PRN ×2 (14:30→16:33)
[2022-04-26] MEDS ORDERED: CARBOHYDRATES FOR HYPOGLYCEMIA PO PRN ×2 (14:30→16:33)
--- NOTE | 2022-04-26 14:34 | Pharmacy Report ---
Pharmacy Glycemic Short Note 2 - Date of Service April 26, 2022 - Glycemic Short BSG Results (Last 24 hours): 04/26/22 04/26/22 07:56 12:28 POC Glucose 161 H 148 H OUTPATIENT ANTIDIABETIC REGIMEN: * Metformin 1000 mg PO BID * A1c = 6.5% ASSESSMENT: * Kareem is a 56 yo T2DM s/p spinal surgery today * A1c demonstrates excellent outpatient control on metformin. Metformin is currently on hold. Will manage with bolus insulin today. Patient is ordered high dose IV steroids to start tomorrow AM (DXM 6 mg daily x 3 days). Will need to add basal insulin in AM. PLAN FOR INPATIENT GLYCEMIC CONTROL: * Hold outpatient oral diabetes medications * Basal insulin * Holding POD #0, will reassess on 04/27 * Bolus insulin * NovoLog per scale ACHS or Q6hrs while NPO * Goal Range: Low 110 mg/dL - High 140 mg/dL * Correction Factor: 20 mg/dL/unit * Nutritional / Prandial insulin per carb ratio of 1 unit per 8 grams CHO consumed
[2022-04-26] MEDS: oxyCODONE HCL IR 5 MG TAB (IMMEDIATE RELEASE) PO PRN ×2 (14:42→19:19)
[2022-04-26] MEDS: INSULIN ASPART PER UNIT SC SCH ×3 (15:46→22:21)
--- NOTE | 2022-04-26 16:32 | Hospitalist Consultation ---
Date of Consultation April 26, 2022 Assessment & Plan (1) Lumbar spinal stenosis: Kareem Guan is a 56-year-old male with past medical history of GERD, type II DM, CAD, SIDDHARTHA, and lumbar stenosis with radiculopathy who presented for scheduled #1 removal of posterior instrumentation L4-5. #2 exploration of fusion L4-5. #3 revision decompression with bilateral medial facetectomies and foraminotomies L2-L3, L3-L4 and L5-S1. #4 posterior spinal fusion L3-L4 L5-S1. #5 placement posterior segmental instrumentation L3-S1. #6 interbody fusion L3-L4 L5-S1. #7 placement of Spira 15 x 26 mm at L3-L4 and L5-S1. #8 placement locally harvested morselized autograft in the posterior gutters. #9 placement of I factor bone of the test interbody space and posterior lateral gutters. Lumbar Stenosis - s/p #1 removal of posterior instrumentation L4-5. #2 exploration of fusion L4-5. #3 revision decompression with bilateral medial facetectomies and foraminotomies L2-L3, L3-L4 and L5-S1. #4 posterior spinal fusion L3-L4 L5-S1. #5 placement posterior segmental instrumentation L3-S1. #6 interbody fusion L3- L4 L5-S1. #7 placement of Spira 15 x 26 mm at L3-L4 and L5-S1. #8 placement locally harvested morselized autograft in the posterior gutters. #9 placement of I factor bone of the test interbody space and posterior lateral gutters. -150 cc blood loss, procedure was technically challenging and extended due to BMI. Patient doing well postoperatively DVT prophylaxis, pain control, ambulation per primary team CAD - s/p 2 stents 2006. 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 Patient with no chest pain, chest pressure, lightheadedness, dizziness postoperatively Continue metoprolol daily Continue statin Resume aspirin tomorrow morning Hypertension Continue metoprolol May resume losartan 04/27, if hypotensive or creatinine is elevated in the morning delay this until 04/28 Type II DM Hold home metformin Sliding scale insulin while inpatient, goal BSG [id number] Anxiety/depression May resume paroxetine 30 mg every morning Patient no longer takes amitriptyline May take melatonin for sleep DVT prophylaxis: Per primary team CODE STATUS: Full code (2) Hydronephrosis, left: (3) S/P arthroscopy of right shoulder: (4) Hypertension: (5) GERD (gastroesophageal reflux disease): (6) Hyperlipidemia: (7) Diabetes mellitus, type 2: (8) CAD (coronary artery disease): History of Present Illness Attending Physician: Mynor Purcell DO History of Present Illness Kareem Guan is a 56-year-old male with past medical history of GERD, type II DM, CAD, SIDDHARTHA, and lumbar stenosis with radiculopathy who presented for scheduled #1 removal of posterior instrumentation L4-5. #2 exploration of fusion L4-5. #3 revision decompression with bilateral medial facetectomies and foraminotomies L2-L3, L3-L4 and L5-S1. #4 posterior spinal fusion L3-L4 L5-S1. #5 placement posterior segmental instrumentation L3-S1. #6 interbody fusion L3-L4 L5-S1. #7 placement of Spira 15 x 26 mm at L3-L4 and L5-S1. #8 placement locally harvested morselized autograft in the posterior gutters. #9 placement of I factor bone of the test interbody space and posterior lateral gutters. He is seen bedside postoperatively. He reports he has some back pain at his surgical site, no longer has radiating pain into his leg/calf. Prior to decompression was having shooting pain into his left calf which had recently began also involving the right buttock and leg. No leg pain at time of assessment. No chest pain, chest pressure, lightheadedness, dizziness, nausea, vomiting. Other than the back pain is surgical site he feels well with no questions. He has not taken aspirin recently, did not take losartan this morning. Seen at the bedside with his present. Allergies, social history, medical history reviewed. Full code. Allergies Allergy/AdvReac Type Severity Reaction Status Date / Time shellfish derived Allergy Severe Throat Verified 04/26/22 08:07 swelling tramadol Allergy Mild Hives, Verified 04/26/22 08:07 dizziness, nausea acetaminophen AdvReac Mild Upset Verified 04/26/22 08:07 stomach Home Medications Medication Instructions Recorded Confirmed Type amitriptyline 100 mg tablet 100 mg PO HS 02/16/19 04/26/22 History atorvastatin 80 mg tablet (Lipitor) 80 mg PO HS 02/16/19 04/26/22 History famotidine 20 mg tablet (Pepcid) 20 mg PO BID 02/16/19 04/26/22 History gabapentin 100 mg capsule 100 mg PO BID 02/16/19 04/26/22 History losartan 50 mg tablet (Cozaar) 50 mg PO QAM 02/16/19 04/26/22 History metoprolol succinate 25 mg 25 mg PO QAM 02/23/19 04/26/22 History tablet,extended release 24 hr (Toprol XL) metformin 1,000 mg tablet 1,000 mg PO BID 02/29/20 04/26/22 History melatonin 10 mg tablet 10 mg PO HS 09/07/21 04/26/22 History oxycodone 10 mg tablet 10 mg PO Q6H PRN pain #30 tabs 10/31/21 04/26/22 Rx paroxetine HCl 30 mg tablet (Paxil) 30 mg PO QAM 04/05/22 04/26/22 History Patient History Medical History CAD (coronary artery disease) 2006 x 2 stents (LAD, Diagonal) 2011 (PADMINI D1) cardiac stents x3 total (most recent stent 2011) No recent issues Degenerative disc disease s/p cervical fusion Diabetes mellitus, type 2 NIDDM GERD (gastroesophageal reflux disease) controlled, stable per pt Hyperlipidemia Hypertension controlled, stable per pt Myocardial Infarction 2012 > stents SIDDHARTHA (obstructive sleep apnea) pt states the last sleep study was negative Surgical History Difficult intubation Right reverse total shoulder replacement (10/08/21): Glidescope#3, ETT 7.5 + PNB at [facility]. *Difficult airway* per anesthesia record comments. No issues noted per post-op anesthesia progress note. Fusion of spine ACDF C6-C7, C5 corpectomy: 08/08/10: MAC#4, ETT 7.5 at [facility] History of cardiac cath 2006 x 2 stents (LAD, Diagonal) 2011 (PADMINI D1) History of colonoscopy History of esophageal dilatation History of esophagogastroduodenoscopy (EGD) History of hip surgery right hip (as a child) History of lumbar fusion 10/04/2020: elective glidescope 3. ETT 8.0. History of repair of rotator cuff right History of reverse total replacement of right shoulder joint Right reverse total shoulder replacement (10/08/21): Glidescope#3, ETT 7.5 + PNB at [facility]. *Difficult airway* per anesthesia record comments. No issues noted per post-op anesthesia progress note. History of tooth extraction History of total knee replacement right knee S/P arthroscopy of right shoulder 03/18/19. 02/29/20. LMA#5. Family History Father Family history of diabetes mellitus Other No family history of adverse response to anesthesia Social History Smoking Status: Former smoker Smoking End Date: ~2010; Second Hand Exposure: No; Do You Dip or Chew Tobacco: No; Tobacco Cessation Education Requested by Patient: No Hx Alcohol Use: Yes Alcohol type: beer Hx Substance Use: No Preferred Language: Faroese Communication Ability: Effective Senior Electrical Engineer Required: No Beliefs That Will Affect Care: None marital status: Current Living Situation: Spouse Other Information That Helps Us Care for You: No Feels Safe at Home: Yes Safety Concerns: Feels Safe At This Time Assistive Devices: Walker Review of Systems Review of Systems: All systems reviewed & are unremarkable except as noted in HPI & below Physical Exam Physical Exam: General: A&Ox3. NAD. Cooperative. HEENT: Atraumatic, normocephalic. Vision/hearing intact Pulm: CTAB A&P. -wheezes, -rales, -rhonchi. Symmetrical chest rise. No increased work of breathing. No respiratory distress. Cardiac: RRR, -mrg. Radial pulses intact and symmetrical. Abdominal: Nontender, nondistended, soft. BS present. Back/extremities: KAVITA drain in place draining serosanguineous material. Sensation of soft touch intact in feet bilaterally without asymmetry. Able to wiggle toes bilaterally. Cap refill in toes brisk, PT pulses intact. Moves upper extremities equally. Results & Data Results & Data ([facility]) Vital Signs (Past 12 Hours) Vital Signs Temp Pulse Resp BP BP Pulse Ox O2 Del Method 04/26/22 15:30 36.5 C 87 18 126/77 95 Nasal Cannula 04/26/22 14:36 36.5 C 86 18 142/68 H 97 Nasal Cannula 04/26/22 13:00 36.5 C 94 H 20 124/69 94 Nasal Cannula 04/26/22 14:00 36.7 C 89 16 135/73 95 Nasal Cannula 04/26/22 13:30 36.5 C 94 H 16 124/69 94 Nasal Cannula 04/26/22 13:10 36.6 C 81 17 154/88 H 95 Nasal Cannula 04/26/22 13:00 86 17 124/81 95 Nasal Cannula 04/26/22 12:50 81 17 152/80 H 97 Nasal Cannula 04/26/22 12:40 88 17 138/93 99 Oxymask 04/26/22 12:30 88 18 156/86 H 98 Oxymask 04/26/22 12:20 88 18 138/97 96 Oxymask 04/26/22 12:16 36.8 C 91 H 18 146/105 H 96 Oxymask 04/26/22 07:51 37 C 77 20 156/82 H 96 Room Air O2 Flow Rate 04/26/22 15:30 4 04/26/22 14:36 4 04/26/22 13:00 4 04/26/22 14:00 4 04/26/22 13:30 4 04/26/22 13:10 4 04/26/22 13:00 4 04/26/22 12:50 4 04/26/22 12:40 5 04/26/22 12:30 5 04/26/22 12:20 5 04/26/22 12:16 5 04/26/22 07:51 PG Care Time/CCT Total # of Minutes Spent Total Time Spent with Patient: Total time spent is greater than 50% in coordination of care (as documented) at patient's floor/unit and/or counseling patient: Coding Level of Care Code INP/OBS CONSULT LVL 3, 45 MIN Diagnoses Lumbar spinal stenosis M48.061 Hydronephrosis, left N13.30 S/P arthroscopy of right shoulder Z98.890 Hypertension I10 GERD (gastroesophageal reflux disease) K21.9 Hyperlipidemia E78.5 Diabetes mellitus, type 2 E11.9 CAD (coronary artery disease) I25.10
[2022-04-26] MEDS ORDERED: GLUCAGON FOR INJ 1 MG VIAL SQ PRN (16:33)
[2022-04-26] MEDS: SODIUM CHLORIDE 0.9% 1000ML 1,000 ML IV SCH (18:22)
[2022-04-26] MEDS: ceFAZolin 2000MG 2,000 MG/15 ML SYR IV SCH (18:29)
[2022-04-26] MEDS: GABAPENTIN 100 MG CAP PO SCH (20:44)
[2022-04-26] MEDS: MELATONIN 3 MG TAB PO SCH (20:44)
[2022-04-26] MEDS: ATORVASTATIN 40 MG TAB PO SCH (20:45)
[2022-04-26] MEDS: AMITRIPTYLINE HCL 100 MG TAB PO SCH (20:45)
[2022-04-26] MEDS: DOCUSATE SODIUM/SENNA 50/8.6MG TAB PO SCH (20:45)
[2022-04-26] MEDS: FAMOTIDINE 20 MG TAB PO SCH (20:45)
[2022-04-26] MEDS ORDERED: INSULIN ASPART PER UNIT SC SCH (21:00)
[2022-04-26] MEDS: HYDROmorphone INJ 0.5 MG/0.5 ML SYR IV PRN (21:02)
[2022-04-26] MEDS ORDERED: COUGH DROP (SUGAR FREE) LOZ 24 LOZ/1 BOX BUCCAL ONE (23:59)
[2022-04-27] MEDS: oxyCODONE HCL IR 5 MG TAB (IMMEDIATE RELEASE) PO PRN ×4 (00:57→20:55)
[2022-04-27] MEDS: ceFAZolin 2000MG 2,000 MG/15 ML SYR IV SCH (00:59)
[2022-04-27] MEDS: SODIUM CHLORIDE 0.9% 1000ML 1,000 ML IV SCH (01:42)
[2022-04-27] MEDS: HYDROmorphone INJ 0.5 MG/0.5 ML SYR IV PRN ×4 (05:23→22:07)
[2022-04-27] MEDS: POLYETHYLENE (MIRALAX) 17 GM PACK PO SCH ×4 (05:30→21:00)
[2022-04-27 06:34] LABS: Basophils # (auto) 0.06 K/uL (0-0.2); Basophils % (auto) 0.5 %; Eosinophils % (auto) 2.6 %; Hematocrit (blood only) 39.4 % (42.0-52.0); Hemoglobin 13.7 g/dl (14.0-18.0); Immature Granulocytes # (auto) 0.06 K/uL (0.01-0.20); Immature Granulocytes % (auto) 0.5 %; Lymphocytes # (auto) 1.79 K/uL (1.2-3.4); Lymphocytes % (auto) 15.5 %; Mean Corpuscular Hemoglobin 31.9 pg (25.0-34.0); Mean Corpuscular Hgb Conc 34.8 g/dL (32.0-36.0); Mean Corpuscular Volume 91.6 fL (80.0-100.0); Mean Platelet Volume 9.9 fL (9.4-12.4); Monocytes # (auto) 1.54 K/uL (0.11-0.59); Monocytes % (auto) 13.3 %; Neutrophils # (auto) 7.81 K/uL (1.40-6.50); Neutrophils % (auto) 67.6 %; Platelet Count 196 K/uL (130-400); RDW Coefficient of Variation 13.4 % (11.5-14.5); RDW Standard Deviation 45.5 fL (36.4-46.3); White Blood Count 11.56 K/ul (4.8-10.8)
[2022-04-27 06:53] LABS: Calcium 8.6 mg/dl (8.5-10.1); Creatinine Clr Calc Pharmacy 128.6 ml/min; Est GFR (African American) 113.4 ml/min; Est GFR (Non-African American) 97.9 ml/min; Potassium 4.2 mmol/L (3.5-5.1)
--- NOTE | 2022-04-27 08:14 | Orthopedic Progress Note ---
Date of Service April 27, 2022 Assessment & Plan (1) Neurogenic claudication due to lumbar spinal stenosis: Plan: This time we will initiate physical therapy monitor his KAVITA operatively discharge home Friday. Admission and Anticipated Discharge Date Admission Date: April 26, 2022 Subjective Patient's back pain is controlled leg symptoms improved Physical Exam Physical Exam: Patient is good strength testing. He is comfortable. Results & Data ([facility]) Vital Signs (Past 12 Hours) Vital Signs Temp Pulse Resp BP Pulse Ox O2 Del Method O2 Flow Rate 04/27/22 07:30 36.7 C 86 16 132/78 96 Nasal Cannula 04/27/22 03:46 36.9 C 94 H 18 151/78 H 95 Nasal Cannula 2 04/26/22 21:00 Room Air 04/26/22 23:40 37.1 C 90 18 135/76 95 Nasal Cannula 2
[2022-04-27] MEDS: PARoxetine HCL 10 MG TAB PO SCH (08:53)
[2022-04-27] MEDS: LOSARTAN POTASSIUM 50 MG TAB PO SCH (08:54)
[2022-04-27] MEDS: GABAPENTIN 100 MG CAP PO SCH ×2 (08:54→20:59)
[2022-04-27] MEDS: FAMOTIDINE 20 MG TAB PO SCH ×2 (08:55→20:59)
[2022-04-27] MEDS: METOPROLOL SUCC 25MG EXT REL TAB PO SCH (08:55)
[2022-04-27] MEDS: INSULIN ASPART PER UNIT SC SCH ×4 (09:05→20:56)
[2022-04-27] MEDS: INSULIN HUMAN NPH SC SCH (09:07)
[2022-04-27] MEDS: dexAMETHasone 6 MG in SYRINGE 0 ML IV SCH (10:24)
--- NOTE | 2022-04-27 12:03 | Hospitalist Progress Note ---
Date of Service April 27, 2022 Assessment & Plan (1) Lumbar spinal stenosis: Plan: - s/p #1 removal of posterior instrumentation L4-5. #2 exploration of fusion L4-5. #3 revision decompression with bilateral medial facetectomies and foraminotomies L2-L3, L3-L4 and L5-S1. #4 posterior spinal fusion L3-L4 L5-S1. #5 placement posterior segmental instrumentation L3-S1. #6 interbody fusion L3- L4 L5-S1. #7 placement of Spira 15 x 26 mm at L3-L4 and L5-S1. #8 placement locally harvested morselized autograft in the posterior gutters. #9 placement of I factor bone of the test interbody space and posterior lateral gutters. -150 cc blood loss, procedure was technically challenging and extended due to BMI. Patient doing well postoperatively DVT prophylaxis, pain control, ambulation per primary team - Utilize IS q1-2h wa for atelectasis/pna prevention - Remove sheppard (2) Hydronephrosis, left: Plan: - Follows with urology - Supposed to be on Flomax 0.4mg daily - not on med rec, will clarify with patient (3) Hypertension: Plan: Continue metoprolol Losartan resumed this AM (4) GERD (gastroesophageal reflux disease): Plan: - Continue Pepcid (5) Diabetes mellitus, type 2: Plan: Home metformin held on admit - will resume - Appears he is also to be on Glipizide 5mg daily which is not on his med rec Sliding scale insulin while inpatient, goal BSG [id number] (6) CAD (coronary artery disease): Plan: - s/p 2 stents 2006. 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 Patient with no chest pain, chest pressure, lightheadedness, dizziness postoperatively Continue metoprolol daily Continue statin Resume aspirin tomorrow morning (7) Depression: Plan: May resume paroxetine 30 mg every morning Patient no longer takes amitriptyline May take melatonin for sleep Plan Pt high risk as he is receiving IV narcotics. Recommendations as outlined above. Thank you for allowing us to participate in the care of your patient. Will follow. Plan d/w Dr. Aguayo. Admission and Anticipated Discharge Date Admission Date: April 26, 2022 Subjective Patient seen on daily rounds this morning. He is pod #1 from back surgery. He reports back pain is significant, had a dose of OxyIR this AM followed by IV Dilaudid just prior to my visit. He denies cp or dyspnea. Denies radicular symptoms. Physical Exam Physical Exam: GENERAL: 56 yo Well-developed, well-nourished WM. NAD. LUNGS: Clear to auscultation bilaterally. CARDIOVASCULAR: Regular rate and rhythm. NEUROLOGIC: A&O x3. No focal neurological deficits. CN II-XII grossly intact. KAVITA drain extending from back incision which is dressed. Results & Data Results & Data ([facility]) Vital Signs (Past 12 Hours) Vital Signs Temp Pulse Resp BP Pulse Ox O2 Del Method O2 Flow Rate 04/27/22 11:50 37.1 C 87 16 158/69 H 94 Room Air 04/27/22 08:55 Room Air 04/27/22 07:30 36.7 C 86 16 132/78 96 Nasal Cannula 04/27/22 03:46 36.9 C 94 H 18 151/78 H 95 Nasal Cannula 2 Laboratory Results 04/27/22 05:57 04/27/22 05:57 PG Care Time/CCT Total # of Minutes Spent Total Time Spent with Patient: Total time spent is greater than 50% in coordination of care (as documented) at patient's floor/unit and/or counseling patient: Coding Level of Care Code 89612 SUB INP/OBS CARE 3/50MIN Diagnoses Lumbar spinal stenosis M48.061 Hydronephrosis, left N13.30 Hypertension I10 GERD (gastroesophageal reflux disease) K21.9 Diabetes mellitus, type 2 E11.9 CAD (coronary artery disease) I25.10 Depression F32.A
--- NOTE | 2022-04-27 13:27 | Pharmacy Report ---
Pharmacy Glycemic Short Note 2 - Date of Service April 27, 2022 - Glycemic Short BSG Results (Last 24 hours): 04/26/22 04/27/22 04/27/22 21:00 05:57 08:11 Glucose 176 H POC Glucose 110 H 157 H 04/27/22 11:44 Glucose POC Glucose 168 H OUTPATIENT ANTIDIABETIC REGIMEN: * Metformin 1000 mg PO BID * A1c = 6.5% ASSESSMENT: * BSGs yesterday were [phone] mg/dL. Patient received 6 units of bolus insulin. * Patient to start dexamethasone 6 mg IV daily x 3 days. Will give NPH 40 units SQ with this for steroid hyperglycemia. * Continue Novolog. Yesterday BSGs trended downwards but expect more bolus needs due to steroids. * Resume metformin on Friday. BACKGROUND * Kareem is a 56 yo T2DM s/p spinal surgery today * A1c demonstrates excellent outpatient control on metformin. Metformin is currently on hold. Will manage with bolus insulin today. Patient is ordered high dose IV steroids to start tomorrow AM (DXM 6 mg daily x 3 days). Will need to add basal insulin in AM. PLAN FOR INPATIENT GLYCEMIC CONTROL: * Hold outpatient oral diabetes medications- resume Friday * Basal insulin * NPH 40 units with dexamethasone * Bolus insulin * NovoLog per scale ACHS or Q6hrs while NPO * Goal Range: Low 110 mg/dL - High 140 mg/dL * Correction Factor: 20 mg/dL/unit * Nutritional / Prandial insulin per carb ratio of 1 unit per 8 grams CHO consumed
[2022-04-27] MEDS ORDERED: COUGH DROP (SUGAR FREE) LOZ 24 LOZ/1 BOX BUCCAL ONE (20:34)
[2022-04-27] MEDS: AMITRIPTYLINE HCL 100 MG TAB PO SCH (20:57)
[2022-04-27] MEDS: ATORVASTATIN 40 MG TAB PO SCH (20:58)
[2022-04-27] MEDS: DOCUSATE SODIUM/SENNA 50/8.6MG TAB PO SCH (20:59)
[2022-04-27] MEDS: metFORMIN HCL 500 MG TAB PO SCH (21:00)
[2022-04-28] MEDS: HYDROmorphone INJ 0.5 MG/0.5 ML SYR IV PRN ×5 (02:25→23:00)
[2022-04-28] MEDS: MELATONIN 3 MG TAB PO SCH ×2 (02:25→21:30)
[2022-04-28] MEDS: oxyCODONE HCL IR 5 MG TAB (IMMEDIATE RELEASE) PO PRN ×4 (05:22→21:30)
[2022-04-28] MEDS: POLYETHYLENE (MIRALAX) 17 GM PACK PO SCH ×4 (05:23→20:53)
[2022-04-28] MEDS: GABAPENTIN 100 MG CAP PO SCH ×2 (07:50→20:53)
[2022-04-28] MEDS: LOSARTAN POTASSIUM 50 MG TAB PO SCH (07:50)
[2022-04-28] MEDS: metFORMIN HCL 500 MG TAB PO SCH ×2 (07:50→20:53)
[2022-04-28] MEDS: FAMOTIDINE 20 MG TAB PO SCH ×2 (07:50→20:53)
[2022-04-28] MEDS: PARoxetine HCL 10 MG TAB PO SCH (07:50)
[2022-04-28] MEDS: METOPROLOL SUCC 25MG EXT REL TAB PO SCH (07:51)
[2022-04-28] MEDS: INSULIN ASPART PER UNIT SC SCH ×4 (09:24→20:53)
[2022-04-28] MEDS: INSULIN HUMAN NPH SC SCH (09:25)
[2022-04-28] MEDS: dexAMETHasone 6 MG in SYRINGE 0 ML IV SCH (09:27)
--- NOTE | 2022-04-28 10:22 | Hospitalist Progress Note ---
Date of Service April 28, 2022 Assessment & Plan (1) Lumbar spinal stenosis: Plan: - s/p #1 removal of posterior instrumentation L4-5. #2 exploration of fusion L4-5. #3 revision decompression with bilateral medial facetectomies and foraminotomies L2-L3, L3-L4 and L5-S1. #4 posterior spinal fusion L3-L4 L5-S1. #5 placement posterior segmental instrumentation L3-S1. #6 interbody fusion L3- L4 L5-S1. #7 placement of Spira 15 x 26 mm at L3-L4 and L5-S1. #8 placement locally harvested morselized autograft in the posterior gutters. #9 placement of I factor bone of the test interbody space and posterior lateral gutters. -150 cc blood loss, procedure was technically challenging and extended due to BMI. Patient doing well postoperatively DVT prophylaxis, pain control, ambulation per primary team - Utilize IS q1-2h wa for atelectasis/pna prevention - Removed sheppard 04/27 and voiding w/o issue (2) Hydronephrosis, left: Plan: - Follows with urology - Supposed to be on Flomax 0.4mg daily but per pt no longer taking (3) Hypertension: Plan: Continue metoprolol Losartan resumed this AM (4) GERD (gastroesophageal reflux disease): Plan: - Continue Pepcid (5) Diabetes mellitus, type 2: Plan: Home metformin held on admit - will resume Sliding scale insulin while inpatient, goal BSG [id number] (6) CAD (coronary artery disease): Plan: - s/p 2 stents 2006. 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 Patient with no chest pain, chest pressure, lightheadedness, dizziness postoperatively Continue metoprolol daily Continue statin Resume aspirin tomorrow morning (7) Depression: Plan: May resume paroxetine 30 mg every morning Patient no longer takes amitriptyline May take melatonin for sleep Plan Patient is doing well post operatively. No further recommendations on this patient, will sign off. Please feel free to contact if any acute needs should arise while patient remains in house. Thank you for allowing to participate in the care of your patient. Plan d/w Dr. Aguayo. Admission and Anticipated Discharge Date Admission Date: April 26, 2022 Subjective Patient seen on daily rounds this morning. He is pod #2 from back surgery. He denies cp or dyspnea. Denies radicular symptoms. States that the OxyIR 10mg "does nothing" but appears more comfortable today. Physical Exam Physical Exam: GENERAL: 56 yo Well-developed, well-nourished WM. NAD. LUNGS: Clear to auscultation bilaterally. CARDIOVASCULAR: Regular rate and rhythm. NEUROLOGIC: A&O x3. No focal neurological deficits. CN II-XII grossly intact. KAVITA drain extending from back incision which is dressed. Results & Data Results & Data ([facility]) Vital Signs (Past 12 Hours) Vital Signs Temp Pulse Resp BP Pulse Ox O2 Del Method 04/28/22 07:50 Room Air 04/28/22 07:27 36.6 C 75 18 153/84 H 97 Room Air PG Care Time/CCT Total # of Minutes Spent Total Time Spent with Patient: Total time spent is greater than 50% in coordination of care (as documented) at patient's floor/unit and/or counseling patient: Coding Level of Care Code 28933 SUB INP/OBS CARE 2/35MIN Diagnoses Lumbar spinal stenosis M48.061 Hydronephrosis, left N13.30 Hypertension I10 GERD (gastroesophageal reflux disease) K21.9 Diabetes mellitus, type 2 E11.9 CAD (coronary artery disease) I25.10 Depression F32.A
--- NOTE | 2022-04-28 11:03 | Orthopedic Progress Note ---
Date of Service April 28, 2022 Assessment & Plan (1) Neurogenic claudication due to lumbar spinal stenosis: Plan: This time continue physical therapy monitor his KAVITA output anticipate discharge home tomorrow. Admission and Anticipated Discharge Date Admission Date: April 26, 2022 Subjective Back pain controlled leg pain improved Physical Exam Physical Exam: On exam he sitting up at the bedside. Is constricted testing. Appears comfort able. Results & Data ([facility]) Vital Signs (Past 12 Hours) Vital Signs Temp Pulse Resp BP Pulse Ox O2 Del Method 04/28/22 07:50 Room Air 04/28/22 07:27 36.6 C 75 18 153/84 H 97 Room Air
[2022-04-28] MEDS: ATORVASTATIN 40 MG TAB PO SCH (20:52)
[2022-04-28] MEDS: DOCUSATE SODIUM/SENNA 50/8.6MG TAB PO SCH (20:52)
[2022-04-28] MEDS: AMITRIPTYLINE HCL 100 MG TAB PO SCH (20:52)
[2022-04-29] MEDS: oxyCODONE HCL IR 5 MG TAB (IMMEDIATE RELEASE) PO PRN ×2 (03:35→07:48)
[2022-04-29] MEDS: POLYETHYLENE (MIRALAX) 17 GM PACK PO SCH ×2 (05:37→11:49)
[2022-04-29] MEDS: HYDROmorphone INJ 0.5 MG/0.5 ML SYR IV PRN (05:40)
[2022-04-29] MEDS: metFORMIN HCL 500 MG TAB PO SCH (07:46)
[2022-04-29] MEDS: dexAMETHasone 6 MG in SYRINGE 0 ML IV SCH (07:46)
[2022-04-29] MEDS: FAMOTIDINE 20 MG TAB PO SCH (07:47)
[2022-04-29] MEDS: METOPROLOL SUCC 25MG EXT REL TAB PO SCH (07:47)
[2022-04-29] MEDS: GABAPENTIN 100 MG CAP PO SCH (07:47)
[2022-04-29] MEDS: PARoxetine HCL 10 MG TAB PO SCH (07:47)
[2022-04-29] MEDS: LOSARTAN POTASSIUM 50 MG TAB PO SCH (07:47)
[2022-04-29] MEDS: INSULIN HUMAN NPH SC SCH (08:48)
[2022-04-29] MEDS: INSULIN ASPART PER UNIT SC SCH (08:50)
--- NOTE | 2022-04-29 10:41 | Discharge Summary ---
Date of Service April 29, 2022 Admission HPI Per Admitting Provider This is a 56-year-old male presents with chronic persistent back and leg pain after failing course of nonoperative care is here for surgical invention. Principal Diagnosis Lumbar spinal stenosis with neurogenic claudication Discharge Data Allergies Allergy/AdvReac Type Severity Reaction Status Date / Time shellfish derived Allergy Severe Throat Verified 04/26/22 08:07 swelling tramadol Allergy Mild Hives, Verified 04/26/22 08:07 dizziness, nausea acetaminophen AdvReac Mild Upset Verified 04/26/22 08:07 stomach Consultations 04/26/22 13:34 Consult Hospitalist Routine Procedures Performed Operation Date: 04/26/22 09:05 Actual Procedures p L3-L4 and L5-S1 Decompression and Fusion, Spinal Cord Monitoring(Not Applicable) - DO tiffanie Jones L4-L5 Hardware Removal (Not Applicable) - Mynor Purcell DO Ordered Studies 04/26/22 09:05 FL lumbar spine 2-3V Routine Hospital Course (1) Lumbar spinal stenosis: Patient went lumbar decompression fusion tolerated this well was taken to orthopedic for postoperative. Postop day 1 he was up and ambulating breast postop #2 postop day #3 KAVITA drain acute decreased probably. Excellent strength testing. Pain well controlled. Subsidy discharged home. Discharge orders and instructions found in chart for further review. Total Time Total Time Spent Total Time Spent (In Minutes): 20 minutes Discharge Plan Discharge Items Patient Disposition: Home - Self-Care Reason For Visit: Intervertebral Disc Disorders with Radiculopathy, Discharge Diagnosis: Lumbar spinal stenosis with neurogenic claudication Activity: As commented below Non-emergency contact: Primary Care Provider Call non-emergency contact if: you have any medication questions Follow-up/Referrals: Roberto Esposito [Primary Care Provider] - Diet: Regular Addtl Attending Provider Instructions: ACTIVITY RECOMMENDATIONS: SELF CARE INSTRUCTIONS AFTER THORACIC/LUMBAR FUSIONS 1. You may walk to your tolerance. It is good exercise for your legs and back. Expect some back and intermittent leg aches and pains. 2. You may perform "counter-top" level activities (make a sandwich, maricel with a project, etc.). 3. No bending or lifting of more than 10 pounds or back twisting of any nature (roll like a log when turning in bed). 4. You may ride in a car for 20-30 minutes at a time. No driving until after your first visit with your doctor. 5. Frequent changes of position and restricting sitting to 30 minutes at a time will help limit the amount of back spasms and stiffness you may experience. 6. You may discontinue the use of ambulatory aids (cane, crutches, etc.) once your strength and confidence allow. 7. You may machine cleaner the shower and let water strike your incision when you arrive home at least once daily. Do not take a tub bath, sit in a hot tub or go into a swimming pool until after your first recheck in the office. SPECIAL CARE INSTRUCTIONS: VERY IMPORTANT TO READ AND REVIEW A. Your surgical incision has been closed with a cosmetic suture under the skin that will dissolve in about 6 weeks. In 14 days, you can use a pair of clean scissors and cut the suture that is left outside of the skin at the ends of your incision. 1. The small skin tapes can be removed 7 days after surgery if they have not fallen off by that point. 2. You may keep the wound open to air as much as possible to promote healing after post-op day number 5 unless told otherwise by your doctor. 3. If you think the wound looks like it is becoming infected (redness or worsening drainage) and/or you are experiencing fever, chill or worsening back pain and muscle spasms, contact the office so that we may evaluate you as soon as possible. B. Complications are uncommon, but please contact us if you have any signs or symptoms of: 1. wound infection (fever higher than 102.5 degrees F, redness, separation of wound, drainage, or increasing pain from the incision) 2. blood clots in legs (pain, swelling, redness and warmth in legs) 3. urinary tract infection (fever higher than 102.5 degrees F, burning upon urination or increased frequency of urination) 4. nerve problems (inability to walk on your toes or heels, numbness, loss of bowel or bladder control) 5. any other symptoms that concern you C. Please call the office at if you have any concerns or questions about your operation or recovery. D. No smoking! Smoking drastically decreases the chance of a solid fusion. E. Do not take any anti-inflammatory medications (Indocin, Advil, Motrin, Aspirin, Naprosyn, etc.) as these may inhibit the chance of a solid fusion. Tylenol is okay to take for pain. MANAGING PAIN AFTER SPINAL SURGERY 1. Narcotic medication is intended for short-term use and will be provided for surgical pain. Surgical pain usually lasts for a period of 4-6 weeks. Narcotic medication includes Percocet, Vicodin, Darvocet, Tylenol #3 or Lortab. 2. Longer-term pain is more appropriately treated with non-narcotic medication such as Tylenol ES. 3. Muscle spasm is not appropriately treated with narcotics. Muscle relaxers such as Soma, Flexeril or Skelaxin can be used along with Tylenol ES. 4. Remember that we all live with some "aches and pains". This is not unusual or uncommon after an injury or as we get older. a. Back pain is expected and may include muscle spasms for 4 to 6 weeks after surgery. The pain should gradually improve. If the pain worsens for no apparent reason, please contact the office. b. Intermittent leg pain may also be experienced and should not be concerned about unless it worsens for no apparent reason. If so, please contact the office. 5. We will provide appropriate medication within the normal guidelines of their prescribed use. We will also be very cautious and aware of potential abuse and extended duration of patients' medication needs. a. Pain medications are for your comfort and to assist with sleep and rest so that the tissue can heal. They are not provided in order to return to normal activity and should not be used through the day. To do so or worsening pain at night can result from ongoing tissue damage and development of tolerance to the prescribed medicine. 6. Please allow 2-3 days to process refills. Prescriptions will not be mailed but must be picked up at the office. FOLLOW UP VISIT: Keep your scheduled follow-up appointment. Any questions, please call the office at . Pending Studies at Discharge: No Stand-Alone Forms: My [employer], Smoking Cessation Medications and [facility] Order Prescriptions: New tramadol 50 mg tablet 50 mg PO Q6H PRN (Reason: pain, moderate) Qty: 30 0RF oxycodone 5 mg tablet 5 mg PO Q6H PRN (Reason: pain, severe) Qty: 30 0RF Continued oxycodone 10 mg tablet 10 mg PO Q6H PRN (Reason: pain) Qty: 30 0RF losartan [Cozaar] 50 mg Tablet 50 mg PO QAM atorvastatin [Lipitor] 80 mg Tablet 80 mg PO HS famotidine [Pepcid] 20 mg Tablet 20 mg PO BID gabapentin 100 mg Capsule 100 mg PO BID amitriptyline 100 mg Tablet 100 mg PO HS metoprolol succinate [Toprol XL] 25 mg Tablet Extended Release 24 Hr 25 mg PO QAM metformin 1,000 mg Tablet 1,000 mg PO BID melatonin 10 mg Tablet 10 mg PO HS paroxetine HCl [Paxil] 30 mg Tablet 30 mg PO QAM Discharge Orders: Discharge Order (Routine); Ordered 04/29/22 Ordered By: Mynor Purcell Admission Data Admit Date/Time: 04/26/22 11:55 Attending Provider: Mynor Purcell Admit Provider: Mynor Purcell Primary Care Provider: Roberto Esposito Other Providers: Gaston Rice ; Joshua Aguayo
== END 2022-04-29 12:47 | disposition home or self-care (01) | DRG 454 ==
LOC: ASU 07:34 → 3N 11:55

== ENCOUNTER 2022-05-05 10:26 | Inpatient (IN) ==
[2022-05-05] MEDS ORDERED: ONDANSETRON INJ 2 MG/ML 2 ML VIAL IV STA (10:51)
[2022-05-05] MEDS ORDERED: MoRPHine SULFATE 4 MG/ML 1 ML CARP\\VIAL IV STA (10:51)
[2022-05-05] MEDS: SODIUM CHLORIDE 0.9% 1000ML 1,000 ML IV SCH ×2 (11:59→22:08)
--- NOTE | 2022-05-05 12:05 | Emergency Department Note ---
History of Present Illness General Chief Complaint: Leg Weakness, Bilateral Stated Complaint: DIFFICULTY WALKING S/P BACK SURGERY Time Seen by Provider: 05/05/22 10:50 History of Present Illness Provider Complaint: back pain Onset (ago): week(s) 1 Duration: constant Similar Symptoms Previously: Yes Location: lumbar spine Quality: + sharp, + dull, + crushing, + spasming and + throbbing Radiation: none Severity: severe Current Pain Intensity: 9 Relieved By: + immobilization Exacerbated By: + movement Associated symptoms: + weakness and + difficulty walking; no numbness, no loss of sensation in lower extremities, no increased urinary frequency, no urinary incontinence, no fecal incontinence, no a change in bowel habits, no fever, no chills, no abdominal pain, no dysuria, no hematuria or no parasthesias Home Medications Medication Instructions Recorded Confirmed Type amitriptyline 100 mg tablet 100 mg PO HS 02/16/19 05/05/22 History atorvastatin 80 mg tablet (Lipitor) 80 mg PO HS 02/16/19 05/05/22 History famotidine 20 mg tablet (Pepcid) 20 mg PO BID 02/16/19 05/05/22 History gabapentin 100 mg capsule 100 mg PO TID 02/16/19 05/05/22 History losartan 50 mg tablet (Cozaar) 50 mg PO QAM 02/16/19 05/05/22 History metoprolol succinate 25 mg 25 mg PO QAM 02/23/19 05/05/22 History tablet,extended release 24 hr (Toprol XL) metformin 1,000 mg tablet 1,000 mg PO BID 02/29/20 05/05/22 History melatonin 10 mg tablet 10 mg PO HS 09/07/21 05/05/22 History oxycodone 10 mg tablet 10 mg PO Q6H PRN pain #30 tabs 10/31/21 05/05/22 Rx paroxetine HCl 30 mg tablet (Paxil) 30 mg PO QAM 04/05/22 05/05/22 History oxycodone 5 mg tablet 5 mg PO Q6H PRN pain, severe #30 04/27/22 05/05/22 Rx tabs Allergies Allergy/AdvReac Type Severity Reaction Status Date / Time shellfish derived Allergy Severe Throat Verified 05/05/22 12:08 swelling tramadol Allergy Mild Hives, Verified 05/05/22 12:08 dizziness, nausea acetaminophen AdvReac Mild Upset Verified 05/05/22 12:08 stomach Past Med/Surg History Medical History CAD (coronary artery disease) 2007 x 2 stents (LAD, Diagonal) 2012 (PADMINI D1) cardiac stents x3 total (most recent stent 2011) No recent issues Degenerative disc disease s/p cervical fusion Depression Diabetes mellitus, type 2 NIDDM GERD (gastroesophageal reflux disease) controlled, stable per pt Hyperlipidemia Hypertension controlled, stable per pt Myocardial Infarction 2012 > stents SIDDHARTHA (obstructive sleep apnea) pt states the last sleep study was negative Surgical History Difficult intubation 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 *Difficult airway* per anesthesia record comments. No issues noted per post-op anesthesia progress note. Fusion of spine ACDF C6-C7, C5 corpectomy: 08/08/10: MAC#4, ETT 7.5 at [facility] History of cardiac cath 2007 x 2 stents (LAD, Diagonal) 2012 (PADMINI D1) History of colonoscopy History of esophageal dilatation History of esophagogastroduodenoscopy (EGD) History of hip surgery right hip (as a child) History of lumbar fusion 10/04/2020: elective glidescope 3. ETT 8.0. History of repair of rotator cuff right History of reverse total replacement of right shoulder joint 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 *Difficult airway* per anesthesia record comments. No issues noted per post-op anesthesia progress note. History of tooth extraction History of total knee replacement right knee S/P arthroscopy of right shoulder 03/18/19. 02/29/20. LMA#5. Family History Father Family history of diabetes mellitus Other No family history of adverse response to anesthesia Social History Smoking Status: Never smoker Second Hand Exposure: No; Hx Alcohol Use: Yes Alcohol type: beer Hx Substance Use: No Preferred Language: Yi Communication Ability: Effective Spray Worker Required: No Beliefs That Will Affect Care: None marital status: Current Living Situation: Spouse Feels Safe at Home: Yes Assistive Devices: Walker Physical Exam Vital Signs Vital Signs - 24 hr 05/05/22 10:30 05/05/22 11:22 05/05/22 12:06 Temperature 36.4 C L Temperature Source Temporal Artery Scan Pulse Rate 81 100 H Pulse Rate [Apical] 76 Pulse Rhythm [Apical] Pulse Strength [Apical] Respiratory Rate 18 18 Respiratory Effort / Characteristics Respiratory Depth Normal Respiratory Pattern Blood Pressure 132/81 Blood Pressure [Right Arm] 133/69 Blood Pressure Mean 98 Blood Pressure Mean [Right Arm] 90 Blood Pressure Position [Right Arm] Pulse Oximetry 99 95 Oxygen Delivery Method Room Air Room Air Oxygen Flow Rate Sepsis Recent Fever Within 48 Hours No Sepsis New/Unexplained Change in Mental Status No Sepsis Action Taken by Nursing No Action Required Oxygen Flow Rate - Titration Pulse Oximetry Post Tiitration 05/05/22 13:30 05/05/22 13:10 05/05/22 14:00 Temperature Temperature Source Pulse Rate Pulse Rate [Apical] 83 78 Pulse Rhythm [Apical] Regular Regular Pulse Strength [Apical] Normal Normal Respiratory Rate 20 20 Respiratory Effort / Characteristics Non-Labored Spontaneous Non-Labored Spontaneous Respiratory Depth Normal Normal Respiratory Pattern Regular Regular Blood Pressure Blood Pressure [Right Arm] 124/72 150/87 H Blood Pressure Mean Blood Pressure Mean [Right Arm] 89 108 Blood Pressure Position [Right Arm] Sitting Sitting Pulse Oximetry 98 85 L 99 Oxygen Delivery Method Nasal Cannula Nasal Cannula Room Air Oxygen Flow Rate 4 0 Sepsis Recent Fever Within 48 Hours Sepsis New/Unexplained Change in Mental Status Sepsis Action Taken by Nursing Oxygen Flow Rate - Titration 4 Pulse Oximetry Post Tiitration 98 05/05/22 10:51 Temperature Temperature Source Pulse Rate Pulse Rate [Apical] Pulse Rhythm [Apical] Pulse Strength [Apical] Respiratory Rate Respiratory Effort / Characteristics Respiratory Depth Respiratory Pattern Blood Pressure Blood Pressure [Right Arm] Blood Pressure Mean Blood Pressure Mean [Right Arm] Blood Pressure Position [Right Arm] Pulse Oximetry 97 Oxygen Delivery Method Room Air Oxygen Flow Rate Sepsis Recent Fever Within 48 Hours Sepsis New/Unexplained Change in Mental Status Sepsis Action Taken by Nursing Oxygen Flow Rate - Titration Pulse Oximetry Post Tiitration Physical Exam HENT: Exam performed. - Head: Normocephalic and atraumatic. CV: Normal rate, regular rhythm, normal heart sounds and intact distal pulses. There is no peripheral edema. Palpable radial pulses bue. PULM/CHEST: Effort normal and breath sounds normal. No respiratory distress. No stridor. He has no wheezes. He has no rales. ABD: The abdomen is soft. MUSC/SKEL: Surgical incision over the lumbar area appears clean and dry with no surrounding erythema or discharge. Pain on palpation of the lumbar spine. NEURO: Weakness in the bilateral lower extremities. No saddle anesthesia or paresthesias. Course Course 1050: The patient was evaluated in room A4. A complete history and physical exam was performed Administered Medications Sodium Chloride (Nss 1000ml) 1,000 mls @ 80 mls/hr IV .[id number] LATOYA Stop: 06/04/22 10:59 Last Admin: 05/05/22 11:59 Dose: 80 mls/hr Documented By: ASHLEIGH Discontinued Medications Diazepam (Diazepam 5 Mg/Ml Inj 10ml Vial) 5 mg IV NOW STA Stop: 05/05/22 15:11 Last Admin: 05/05/22 15:43 Dose: 5 mg Documented By: VEL Hydromorphone HCl (Hydromorphone Inj 1 Mg/Ml Syringe) 1 mg IV NOW STA Stop: 05/05/22 12:44 Last Admin: 05/05/22 12:51 Dose: 1 mg Documented By: ASHLEIGH Hydromorphone HCl (Hydromorphone Inj 0.5 Mg/0.5 Ml Syr) 0.5 mg IV NOW STA Stop: 05/05/22 14:46 Last Admin: 05/05/22 14:47 Dose: 0.5 mg Documented By: ASHLEIGH Hydromorphone HCl (Hydromorphone Inj 0.5 Mg/0.5 Ml Syr) Confirm Administered Dose 0.5 mg .ROUTE .STK-MED ONE Stop: 05/05/22 14:47 Last Admin: 05/05/22 14:56 Dose: Not Given Documented By: ASHLEIGH Hydromorphone HCl (Hydromorphone Inj 1 Mg/Ml Syringe) 1 mg IV NOW STA Stop: 05/05/22 15:14 Last Admin: 05/05/22 17:17 Dose: 0.5 mg Documented By: VEL Lorazepam (Lorazepam 2 Mg/1 Ml Vial) 1 mg IV NOW STA Stop: 05/05/22 14:25 Last Admin: 05/05/22 14:31 Dose: 1 mg Documented By: NRB Morphine Sulfate (Morphine Sulfate 4 Mg/Ml 1 Ml Carp\Vial) 4 mg IV NOW STA Stop: 05/05/22 10:52 Last Admin: 05/05/22 12:03 Dose: 4 mg Documented By: NRB Ondansetron HCl (Ondansetron Inj 2 Mg/Ml 2 Ml Vial) 4 mg IV NOW STA Stop: 05/05/22 10:52 Last Admin: 05/05/22 11:56 Dose: 4 mg Documented By: NRLiliana Medical Decision Making Medical Records Attestation: I reviewed the patient's medical records. External medical records reviewed. Patient had spine surgery with Dr. Purcell on April 26, 2022. Per the operation note the patient had the procedure done secondary to lumbar spinal stenosis with neurogenic claudication and radi culopathy. Patient had the following procedures done: #1 removal of posterior instrumentation L4-5. #2 exploration of fusion L4-5. #3 revision decompression with bilateral medial facetectomies and foraminotomies L2-L3, L3-L4 and L5-S1. #4 posterior spinal fusion L3-L4 L5-S1. #5 placement posterior segmental instrumentation L3-S1. #6 interbody fusion L3-L4 L5-S1. #7 placement of Spira 15 x 26 mm at L3-L4 and L5-S1. #8 placement locally harvested morselized autograft in the posterior gutters. #9 placement of I factor bone of the test interbody space and posterior lateral gutters. Laboratory Data Attestation: I reviewed the patient's lab results. 05/05/22 11:58 05/05/22 11:58 Lab Results 05/05/22 05/05/22 Range/Units 11:58 11:58 WBC 12.95 H (4.8-10.8) K/ul RBC 4.36 L (4.70-6.10) M/uL Hgb 13.7 L (14.0-18.0) g/dl Hct 40.0 L (42.0-52.0) % MCV 91.7 (80.0-100.0) fL MCH 31.4 (25.0-34.0) pg MCHC 34.3 (32.0-36.0) g/dL RDW Std Deviation 45.4 (36.4-46.3) fL RDW Coeff of Padmini 13.3 (11.5-14.5) % Plt Count 279 (130-400) K/uL MPV 9.8 (9.4-12.4) fL Immature Gran % (Auto) 1.2 % Neut % (Auto) 69.9 % Lymph % (Auto) 16.0 % Drew % (Auto) 8.4 % Eos % (Auto) 4.0 % Baso % (Auto) 0.5 % Neut # (Auto) 9.06 H (1.40-6.50) K/uL Lymph # (Auto) 2.07 (1.2-3.4) K/uL Drew # (Auto) 1.09 H (0.11-0.59) K/uL Eos # (Auto) 0.52 H (0-0.50) K/uL Baso # (Auto) 0.06 (0-0.2) K/uL Immature Gran # (Auto) 0.15 (0.01-0.20) K/uL Sodium 134 L (136-145) mmol/L Potassium 4.1 (3.5-5.1) mmol/L Chloride 97 L (98-107) mmol/L Carbon Dioxide 31 (21-32) mmol/L Anion Gap 6 (3-11) BUN 11 (6-23) mg/dl Creatinine 0.72 (0.6-1.4) mg/dl Est Cr Clr Drug Dosing 151.9 ml/min Est GFR ( Amer) 120.9 ml/min Est GFR (Non-Af Amer) 104.3 ml/min BUN/Creatinine Ratio 15.3 (10-20) Glucose 124 H (70-99(Fasting)) mg/dl Calcium 9.6 (8.5-10.1) mg/dl Imaging Data Radiologist's Impression: Lumbar Spine MRI 05/05/22 10:51 LUMBAR SPINE MRI HISTORY: postoperative back pain inability to walk TECHNIQUE: Multiplanar multisequence MRI of the lumbar spine was performed without the use of contrast. COMPARISON: Lumbar spine MRI 02/12/2022. FINDINGS: For the purpose of the report the L5-S1 disc space will be located on axial image 38 of 44. Extensive motion artifact and metallic artifact resulting in nondiagnostic evaluation of the majority the lumbar spine. There is been interval posterior decompression fusion from L3 through S1 with pedicle screws and rods. Nonspecific fluid collection surrounding the pedicle screw heads and extending into the subcutaneous soft tissues. This favors a postoperative seroma. A pseudomeningocele or abscess would be impossible to exclude on this study. Evaluation of the central canal is essentially nondiagnostic on this study. IMPRESSION: 1. Extensive motion artifact and metallic artifact resulting in nondiagnostic evaluation of the majority of the lumbar spine. 2. There is a fluid collection surrounding the L3-S1 pedicle screws extending into the subcutaneous soft tissues. This is nonspecific but favors a p ostoperative seroma. An abscess or pseudomeningocele would be impossible to exclude by imaging. ACT 112: Negative or not required by law. Electronically signed by: Walt Luna M.D. 05/05/2022 5:35 PM [facility] Narrative Cardiac monitoring: An order was placed for continuous cardiac monitoring. The monitor shows a rate of 100 with sinus rhythm interpreted by me Vital signs stable. Labs show minimal leukocytosis of 12.9. There is an extensive delay in obtaining the patient's MRI secondary to patient's pain and not being able to lie down on the MRI table. An MRI was finally conducted which showed a fluid collection most likely postoperative seroma. I did discuss the case with Cathleen Donaldson, the operating surgeon Dr. Purcell's midlevel provider. Both she and I doubt that this is truly an abscess as patient has only minimal leukocytosis no fevers and the incision looks clean. The plan will be to admit the patient to the medicine service and then the surgical team will evaluate the patient. Hearing does state that Dr. Purcell will not be in town until Friday but they will be available to evaluate the patient Friday morning. Spoke with Dr. Laureano [facility] hospitalist will admit the patient to his service. Impression & Plan Postoperative seroma Discharge Plan Visit Data Chief Complaint: Leg Weakness, Bilateral Stated Complaint: DIFFICULTY WALKING S/P BACK SURGERY ED Provider: Richie Ram Discharge Problem: Postoperative seroma Patient Disposition: Being Evaluated by Hospitalist Forms Stand Alone Forms: [facility] Prescriptions Prescriptions: No Action oxycodone 10 mg tablet 10 mg PO Q6H PRN (Reason: pain) Qty: 30 0RF losartan [Cozaar] 50 mg Tablet 50 mg PO QAM atorvastatin [Lipitor] 80 mg Tablet 80 mg PO HS famotidine [Pepcid] 20 mg Tablet 20 mg PO BID gabapentin 100 mg Capsule 100 mg PO TID amitriptyline 100 mg Tablet 100 mg PO HS metoprolol succinate [Toprol XL] 25 mg Tablet Extended Release 24 Hr 25 mg PO QAM metformin 1,000 mg Tablet 1,000 mg PO BID melatonin 10 mg Tablet 10 mg PO HS paroxetine HCl [Paxil] 30 mg Tablet 30 mg PO QAM oxycodone 5 mg tablet 5 mg PO Q6H PRN (Reason: pain, severe) Qty: 30 0RF Referrals Referrals: Roberto Esposito [Primary Care Provider] -
[2022-05-05 12:24] LABS: Basophils # (auto) 0.06 K/uL (0-0.2); Basophils % (auto) 0.5 %; Eosinophils # (auto) 0.52 K/uL (0-0.50); Hemoglobin 13.7 g/dl (14.0-18.0); Immature Granulocytes # (auto) 0.15 K/uL (0.01-0.20); Immature Granulocytes % (auto) 1.2 %; Lymphocytes # (auto) 2.07 K/uL (1.2-3.4); Mean Corpuscular Hemoglobin 31.4 pg (25.0-34.0); Mean Corpuscular Hgb Conc 34.3 g/dL (32.0-36.0); Mean Corpuscular Volume 91.7 fL (80.0-100.0); Mean Platelet Volume 9.8 fL (9.4-12.4); Monocytes # (auto) 1.09 K/uL (0.11-0.59); Monocytes % (auto) 8.4 %; Neutrophils # (auto) 9.06 K/uL (1.40-6.50); Neutrophils % (auto) 69.9 %; Platelet Count 279 K/uL (130-400); RDW Coefficient of Variation 13.3 % (11.5-14.5); RDW Standard Deviation 45.4 fL (36.4-46.3); Red Blood Count 4.36 M/uL (4.70-6.10); White Blood Count 12.95 K/ul (4.8-10.8)
[2022-05-05 12:34] LABS: BUN Creatinine Ratio 15.3 (10-20); Calcium 9.6 mg/dl (8.5-10.1); Creatinine Clr Calc Pharmacy 151.9 ml/min; Est GFR (African American) 120.9 ml/min; Est GFR (Non-African American) 104.3 ml/min; Potassium 4.1 mmol/L (3.5-5.1)
[2022-05-05] MEDS ORDERED: HYDROmorphone INJ 1 MG/ML SYRINGE IV STA ×2 (12:43→15:13)
[2022-05-05] MEDS ORDERED: LORazepam 2 MG/1 ML VIAL IV STA (14:24)
[2022-05-05] MEDS ORDERED: HYDROmorphone INJ 0.5 MG/0.5 ML SYR IV STA (14:45)
[2022-05-05] MEDS ORDERED: HYDROmorphone INJ 0.5 MG/0.5 ML SYR ONE (14:46)
--- NOTE | 2022-05-05 17:38 | Magnetic Resonance Report ---
LUMBAR SPINE MRI HISTORY: postoperative back pain inability to walk TECHNIQUE: Multiplanar multisequence MRI of the lumbar spine was performed without the use of contras t. COMPARISON: Lumbar spine MRI 02/12/2022. FINDINGS: For the purpose of the report the L5-S1 disc space will be located on axial image 38 of 44. Extensive motion artifact and metallic artifact resulting in nondiagnostic evaluation of the majority the lumbar spine. There is been interval posterior decompression fusion from L3 through S1 with pedi michael screws and rods. Nonspecific fluid collection surrounding the pedicle screw heads and extending i nto the subcutaneous soft tissues. This favors a postoperative seroma. A pseudomeningocele or abscess would be impossible to exclude on this study. Evaluation of the central canal is essentially nondiag nostic on this study. IMPRESSION: 1. Extensive motion artifact and metallic artifact resulting in nondiagnostic evaluation of the major ity of the lumbar spine. 2. There is a fluid collection surrounding the L3-S1 pedicle screws extending into the subcutaneous s oft tissues. This is nonspecific but favors a postoperative seroma. An abscess or pseudomeningocele w ould be impossible to exclude by imaging. ACT 112: Negative or not required by law. Electronically signed by: Walt Luna M.D. 05/05/2022 5:35 PM
--- NOTE | 2022-05-05 18:16 | History & Physical Report ---
Date of Service May 05, 2022 Assessment & Plan (1) Post-operative pain: Plan: -Admit to med/surge -The patient is currently afebrile, hemodynamically stable, and stable on 2L NC -He has been experiencing uncontrolled low back pain with radicular pain to the BL LE's and LLE weakness compared to the RLE -MRI of the lumbar spine was non-diagnostic due to artifact but shows a fluid collection at the surgical site, most likely a seroma -Dr. Purcell's team was consulted and reviewed the imaging, they agree that the fluid collection is likely a seroma at this time, they recommended admission for pain control until Dr. Purcell can see him on Friday -Patient notes difficulty starting his urine stream, he has a history of this prior and was evaluated by Urology who started him on Flomax, his symptoms resolved -Will restart the patient on Flomax tonight and monitor intake and output closely -Pain control with the following: >1000 mg IV tylenol q8h adalgisa >Dilaudid 0.5 mg q4h prn pain 1,2,3 >Dilaudid 1 mg IV q4h prn pain 4,5,6+ >Continue home gabapentin 100 mg PO TID -PRN Narcan ordered for oversedation -Q6h neuro checks, fall precautions, PT/OT consults placed -Will start DVT PPX with BL SCDs for now -AM CBC and BMP (2) Hypoxia: Plan: -Patient noted to be hypoxic on RA into the 80's after receiving multiple episodes of Dilaudid -He appears fatigued on my exam and possibly has untreated sleep apnea -Currently stable on 2L NC, will obtain a CXR -Incentive spirometry and prn O2 to keep SpO2 at or greater than 95% (3) Depression: Plan: -Continue Paxil and amitriptyline (4) Hypertension: Plan: -Stable -Contiue losartan and metoprolol (5) Hyperlipidemia: Plan: -Continue atorvastatin (6) GERD (gastroesophageal reflux disease): Plan: -Continue famotidine (7) Diabetes mellitus, type 2: Plan: -Hold metformin -Monitor BSG ACHS, goal is 110-140 -5 units lantus BID, correction factor of 35 with carb ratio of 12 -DM II diet Plan The patient was discussed with Dr. Laureano at the time of the admission History of Present Illness Chief Complaint: Uncontrolled back pain Primary Care Provider: Roberto Esposito Kareem Guan is a 56-year-old male with past medical history of GERD, type II DM, CAD, SIDDHARTHA (not using CPAP), and lumbar stenosis with radiculopathy S/P lumbar decompression fusion with Dr. Purcell on 04/26/22 who presented to the [facility] ED on 05/05/22 with uncontrolled post-operative back pain. In the ED the p atdulce was found to be afebrile, hemodynamically stable, and stable on RA. Labs were remarkable for a leukocytosis of 12.95 (down from 15.83) stable hgb of 13.7, left shift of 9.06 (down from 10.88 as of 05/02), stable Cr of 0.72, sodium of 134, otherwise stable electrolytes. MRI of the lumbar spine was read as "1. Extensive motion artifact and metallic artifact resulting in nondiagnostic evaluation of the majority of the lumbar spine. 2. There is a fluid collection surrounding the L3-S1 pedicle screws extending into the subcutaneous soft tissues. This is nonspecific but favors a postoperative seroma. An abscess or pseudomeningocele would be impossible to exclude by imaging.". Dr. Purcell's team was consulted and reviewed the imaging, they do not believe that the fluid collection is infectious at this time. They recommend medicine admission for pain control and Dr. Purcell will see him on 05/07 when he is back in the hospital. Prior to admission the patient was given a total of 2.5 mg IV D ilaudid, 5 mg IV Valium, 4 mg IV morphine, 1 mg IV ativan and 4 mg IV zofran. At the time of the exam the patient was sitting in a bedside chair in no acute distress with is sitting bedside. At the start of my exam the patient was on 4L NC due to hypoxia after receiving his last dose of Dilaudid by the ED staff. I attempted to turn his O2 off but he desaturated into the 80's on RA. The patient remained stable on 2L NC. The patient appears fatigued at the time of the exam, history was obtained from he and his . They state that since discharge the patient has had uncontrolled low back and BL LE pain despite using the Oxycodone he was discharged with. He was seen in the [facility] ED on 05/02/22 for his worsening back pain. He received multiple doses of morphine and a dose of oxycodone and was discharged home. Per the ED discharge documentation, the patient was encouraged to follow up with Dr. Jazzy CHILD. He and his state that he has continued to experienced uncontrolled low back pain which radiates down both legs. He states that prior to his procedure he felt as though his right leg was weaker than his left, today he feels as though the left leg is weaker. He has some associated paresthesias in his buttocks and has difficulty determining if he is having paresthesias in his groin. He denies loss of bowel or bladder function. When asked about any difficulty starting his urine stream he states that he has been having more difficulty starting his urine stream. 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 He experienced urinary retention and was seen outpatient by Urology. They started him on Flomax at that time and he experienced improvement in his symptoms. When asked, he is no longer taking Flomax. When asked about any recent falls he and his note an incident which occurred on 05/03. They were at a social event and the patient states he had a couple of drinks. While walking the patient reportedly felt off balance and slowly fell to his knees. He was able to stand with the assistance of friends and does not think his symptoms were exacerbated by this fall. He states that he is not using a CPAP machine as he tested negative on a prior sleep study; although he and his state that he snores frequently while sleeping. He denies recent fevers, chills, chest pain, SOB, abd pain, nausea, vomiting, diarrhea, dysuria, hematuria, and melena. Please refer to Dr. Laureano's attestation for any changes to the treatment plan Allergies Allergy/AdvReac Type Severity Reaction Status Date / Time shellfish derived Allergy Severe Throat Verified 05/05/22 12:08 swelling tramadol Allergy Mild Hives, Verified 05/05/22 12:08 dizziness, nausea acetaminophen AdvReac Mild Upset Verified 05/05/22 12:08 stomach Home Medications Medication Instructions Recorded Confirmed Type amitriptyline 100 mg tablet 100 mg PO HS 02/16/19 05/05/22 History atorvastatin 80 mg tablet (Lipitor) 80 mg PO HS 02/16/19 05/05/22 History famotidine 20 mg tablet (Pepcid) 20 mg PO BID 02/16/19 05/05/22 History gabapentin 100 mg capsule 100 mg PO TID 02/16/19 05/05/22 History losartan 50 mg tablet (Cozaar) 50 mg PO QAM 02/16/19 05/05/22 History metoprolol succinate 25 mg 25 mg PO QAM 02/23/19 05/05/22 History tablet,extended release 24 hr (Toprol XL) metformin 1,000 mg tablet 1,000 mg PO BID 02/29/20 05/05/22 History melatonin 10 mg tablet 10 mg PO HS 09/07/21 05/05/22 History oxycodone 10 mg tablet 10 mg PO Q6H PRN pain #30 tabs 10/31/21 05/05/22 Rx paroxetine HCl 30 mg tablet (Paxil) 30 mg PO QAM 04/05/22 05/05/22 History oxycodone 5 mg tablet 5 mg PO Q6H PRN pain, severe #30 04/27/22 05/05/22 Rx tabs Past Med/Surg History Medical History CAD (coronary artery disease) 2006 x 2 stents (LAD, Diagonal) 2011 (PADMINI D1) cardiac stents x3 total (most recent stent 2011) No recent issues Degenerative disc disease s/p cervical fusion Depression Diabetes mellitus, type 2 NIDDM GERD (gastroesophageal reflux disease) controlled, stable per pt Hyperlipidemia Hypertension controlled, stable per pt Myocardial Infarction 2012 > stents SIDDHARTHA (obstructive sleep apnea) pt states the last sleep study was negative Surgical History Difficult intubation Right reverse total shoulder replacement (10/08/21): Glidescope#3, ETT 7.5 + PNB at [facility]. *Difficult airway* per anesthesia record comments. No issues noted per post-op anesthesia progress note. Fusion of spine ACDF C6-C7, C5 corpectomy: 08/08/10: MAC#4, ETT 7.5 at [facility] History of cardiac cath 2007 x 2 stents (LAD, Diagonal) 2011 (PADMINI D1) History of colonoscopy History of esophageal dilatation History of esophagogastroduodenoscopy (EGD) History of hip surgery right hip (as a child) History of lumbar fusion 10/04/2020: elective glidescope 3. ETT 8.0. History of repair of rotator cuff right History of reverse total replacement of right shoulder joint Right reverse total shoulder replacement (10/08/21): Glidescope#3, ETT 7.5 + PNB at [facility]. *Difficult airway* per anesthesia record comments. No issues noted per post-op anesthesia progress note. History of tooth extraction History of total knee replacement right knee S/P arthroscopy of right shoulder 03/18/19. 02/29/20. LMA#5. Family History Father Family history of diabetes mellitus Other No family history of adverse response to anesthesia Social History Smoking Status: Former smoker Smoking End Date: 2010; Second Hand Exposure: No; Hx Alcohol Use: Yes Alcohol type: beer Hx Substance Use: No Preferred Language: Khmer Communication Ability: Effective Installer Interior Assemblies Required: No Beliefs That Will Affect Care: None marital status: Current Living Situation: Spouse Other Information That Helps Us Care for You: No Feels Safe at Home: Yes Safety Concerns: Feels Safe At This Time Assistive Devices: Walker Review of Systems Review of Systems: Denies current fever, chills, headache, changes in vision, hearing, taste, and smell, chest pain, SOB, cough, abdominal pain, nausea, vomiting, diarrhea, hematemesis, melena, dysuria, hematuria All systems have been reviewed and are otherwise negative. Physical Exam Physical Exam: Physical Exam: General: In no acute distress, stated age, obese, non-toxic appearing HEENT: Normocephalic, atraumatic, no scleral icterus, pupils around round, symmetrical, and reactive to light, dry mucus membranes, trachea midline, no thyromegaly Chest/Pulm: No respiratory distress, symmetrical chest expansion, clear breath sounds throughout Cardiac: RRR, no murmurs noted Abdomen: Negative for ascites and bruising, normoactive bowel sounds, soft, non-tender to palpation throughout Musculoskeletal: BL upper extremities with symmetrical ROM without pain, surgical site on the lumbar spine appears intact and without signs of infection or dehiscence, patient with pain on ROM of the BL hips and knees, decreased ROM of the LLE compared to right Extremities: Radial, dorsalis pedis, and posterior tibial pulses are intact and symmetrical, no edema noted in the LE's Skin: Warm, dry, no rashes , lesions, or scars noted Neuro: Alert and oriented to person, place, month, year, and president, no focal defects, CN II-XII tested and intact, patient with decreased strength in the LLE compared to right, 2+ patellar and Achilles reflexes in the LE's Psych: No acute distress, calm and cooperative during the exam Results & Data Results & Data ([facility]) Vital Signs (Past 12 Hours) Vital Signs Temp Pulse Pulse Resp BP BP Pulse Ox 05/05/22 10:51 97 05/05/22 14:00 78 20 150/87 H 99 05/05/22 13:10 85 L 05/05/22 13:30 83 20 124/72 98 05/05/22 12:06 76 18 133/69 95 05/05/22 11:22 100 H 05/05/22 10:30 36.4 C L 81 18 132/81 99 O2 Del Method O2 Flow Rate 05/05/22 10:51 Room Air 05/05/22 14:00 Room Air 05/05/22 13:10 Nasal Cannula 0 05/05/22 13:30 Nasal Cannula 4 05/05/22 12:06 Room Air 05/05/22 11:22 05/05/22 10:30 Room Air Laboratory Results Abnormal lab results 05/05/22 05/05/22 Range/Units 11:58 11:58 WBC 12.95 H (4.8-10.8) K/ul RBC 4.36 L (4.70-6.10) M/uL Hgb 13.7 L (14.0-18.0) g/dl Hct 40.0 L (42.0-52.0) % Neut # (Auto) 9.06 H (1.40-6.50) K/uL [place] # (Auto) 1.09 H (0.11-0.59) K/uL Eos # (Auto) 0.52 H (0-0.50) K/uL Sodium 134 L (136-145) mmol/L Chloride 97 L (98-107) mmol/L Glucose 124 H (70-99(Fasting)) mg/dl Diagnostic Findings Lumbar Spine MRI 05/05/22 10:51 LUMBAR SPINE MRI HISTORY: postoperative back pain inability to walk TECHNIQUE: Multiplanar multisequence MRI of the lumbar spine was performed w ithout the use of contrast. COMPARISON: Lumbar spine MRI 02/12/2022. FINDINGS: For the purpose of the report the L5-S1 disc space will be located on axial image 38 of 44. Extensive motion artifact and metallic artifact resulting in nondiagnostic evaluation of the majority the lumbar spine. There is been interval posterior decompression fusion from L3 through S1 with pedicle screws and rods. No nspecific fluid collection surrounding the pedicle screw heads and extending into the subcutaneous soft tissues. This favors a postoperative seroma. A pseudomeningocele or abscess would be impossible to exclude on this study. Evaluation of the central canal is essentially nondiagnostic on this study. IMPRESSION: 1. Extensive motion artifact and metallic artifact resulting in nondiagnostic ev aluation of the majority of the lumbar spine. 2. There is a fluid collection surrounding the L3-S1 pedicle screws extending into the subcutaneous soft tissues. This is nonspecific but favors a postope rative seroma. An abscess or pseudomeningocele would be impossible to exclude by imaging. ACT 112: Negative or not required by law. Electronically signed by: Walt Luna M.D. 05/05/2022 5:35 PM ECG Additional Comments: No ECG available at the time of the admission Code Status & VTE Plan Code Status Full code VTE Prophylaxis Plan VTE Prophylaxis will be ordered: Yes Supervising Physician Co-Signing Physician Notes I personally saw and examined the patient. I verified all melgar points and agree with Agustin Raphael PA-C with the following exceptions and/or additions: 56 year old male presents to the ER with progressively worsening back pain since his operation. Dr Purcell available on Friday to review. No new symptoms but radicular pain he was having prior to the operation is worse than before the operation with severity 10/10 pain in his back around the operation site in addition. O/E HS RRR, no murmurs, Chest CTAB, Abdo SNT, Left leg 4+/5 knee/hip flexion and ankle dorsi/plantarflexion, right leg 5/5 throughout, no numbness, knee reflex equal b/l A/P Post operative pain - ADALGISA acetaminophen, gabapentin, switch opiates to Dilaudid temporarily to get pain under control enough for him to participate in physical therapy PG Care Time/CCT Total # of Minutes Spent Total Time Spent with Patient: Total time spent is greater than 50% in coordination of care (as documented) at patient's floor/unit and/or counseling patient: C[place] [address] INT INP/OBS CARE 2/55MIN Patient Type Established Medical Decision Making High Complexity Diagnoses Post-operative pain G89.18 Hypoxia R09.02 Depression F32.A Hypertension I10 Hyperlipidemia E78.5 GERD (gastroesophageal reflux disease) K21.9 Diabetes mellitus, type 2 E11.9
[2022-05-05] MEDS ORDERED: CARBOHYDRATES FOR HYPOGLYCEMIA PO PRN (18:20)
[2022-05-05] MEDS ORDERED: GLUCAGON FOR INJ 1 MG VIAL SQ PRN (18:20)
[2022-05-05] MEDS ORDERED: GLUCOSE 40% GEL 15 GM TUBE PO PRN (18:20)
[2022-05-05] MEDS ORDERED: DEXTROSE 50% 50 ML SYRINGE IV PRN (18:20)
[2022-05-05] MEDS ORDERED: GLUCOSE 10 TAB/TUBE PO PRN (18:20)
[2022-05-05] MEDS ORDERED: HYDROmorphone INJ 1 MG/ML SYRINGE IV PRN (18:35)
[2022-05-05] MEDS ORDERED: HYDROmorphone INJ 0.5 MG/0.5 ML SYR IV PRN (18:43)
[2022-05-05] MEDS ORDERED: NALOXONE HCL 0.4 MG/1 ML VIAL/CARP IV PRN (18:44)
[2022-05-05] MEDS ORDERED: POLYETHYLENE (MIRALAX) 17 GM PACK PO ONE (19:15)
[2022-05-05] MEDS ORDERED: TAMSULOSIN HCL 0.4 MG CAP PO ONE (19:15)
--- NOTE | 2022-05-05 19:23 | XRay Report ---
XR chest 1V portable HISTORY: hypoxia COMPARISON: Chest 09/18/2021. FINDINGS: No pneumothorax. No pleural effusions. No new focal lung consolidations to suggest pneumoni a. No evidence for pulmonary edema. The heart remains normal in size. Cervical spinal fusion hardware and a right shoulder prosthesis are noted. IMPRESSION: No acute process. ACT 112: Negative or not required by law. Electronically signed by: Walt Luna M.D. 05/05/2022 7:20 PM
[2022-05-05] MEDS ORDERED: ACETAMINOPHEN 1000 MG/100 ML IV IV ONE (19:26)
[2022-05-05] MEDS ORDERED: oxyCODONE HCL IR 5 MG TAB (IMMEDIATE RELEASE) ONE (19:27)
[2022-05-05] MEDS: FAMOTIDINE 20 MG TAB PO SCH (22:11)
[2022-05-05] MEDS: GABAPENTIN 100 MG CAP PO SCH (22:11)
[2022-05-05] MEDS: ATORVASTATIN 40 MG TAB PO SCH (22:11)
[2022-05-05] MEDS: AMITRIPTYLINE HCL 100 MG TAB PO SCH (22:12)
[2022-05-05] MEDS: DOCUSATE SODIUM 100 MG CAP PO SCH (22:12)
[2022-05-05] MEDS: LANTUS PER UNIT CHARGE SQ SCH (22:21)
[2022-05-05] MEDS: INSULIN ASPART PER UNIT SC SCH (22:21)
[2022-05-06] MEDS ORDERED: oxyCODONE HCL IR 5 MG TAB (IMMEDIATE RELEASE) PO SCH (01:30)
[2022-05-06] MEDS: ACETAMINOPHEN 1,000 MG/100 ML VIAL IV SCH ×2 (03:45→12:19)
[2022-05-06 06:50] LABS: Basophils # (auto) 0.05 K/uL (0-0.2); Basophils % (auto) 0.6 %; Eosinophils # (auto) 0.31 K/uL (0-0.50); Eosinophils % (auto) 3.7 %; Hematocrit (blood only) 35.5 % (42.0-52.0); Hemoglobin 11.9 g/dl (14.0-18.0); Immature Granulocytes # (auto) 0.08 K/uL (0.01-0.20); Lymphocytes # (auto) 1.57 K/uL (1.2-3.4); Lymphocytes % (auto) 18.7 %; Mean Corpuscular Hemoglobin 30.9 pg (25.0-34.0); Mean Corpuscular Hgb Conc 33.5 g/dL (32.0-36.0); Mean Corpuscular Volume 92.2 fL (80.0-100.0); Mean Platelet Volume 9.6 fL (9.4-12.4); Monocytes # (auto) 0.98 K/uL (0.11-0.59); Monocytes % (auto) 11.7 %; Neutrophils % (auto) 64.3 %; Platelet Count 230 K/uL (130-400); RDW Coefficient of Variation 13.2 % (11.5-14.5); Red Blood Count 3.85 M/uL (4.70-6.10); White Blood Count 8.39 K/ul (4.8-10.8)
[2022-05-06 07:02] LABS: BUN Creatinine Ratio 13.7 (10-20); Calcium 8.9 mg/dl (8.5-10.1); Creatinine Clr Calc Pharmacy 149.8 ml/min; Est GFR (African American) 120.2 ml/min; Est GFR (Non-African American) 103.7 ml/min
[2022-05-06 07:12] LABS: INR 1.1 (0.9-1.1); Prothrombin Time 11.6 Seconds (9.0-12.0)
[2022-05-06] MEDS: DOCUSATE SODIUM 100 MG CAP PO SCH ×2 (07:49→19:53)
[2022-05-06] MEDS: METOPROLOL SUCC 25MG EXT REL TAB PO SCH (07:49)
[2022-05-06] MEDS: GABAPENTIN 100 MG CAP PO SCH ×3 (07:49→19:54)
[2022-05-06] MEDS: PARoxetine HCL 20 MG TAB PO SCH (07:49)
[2022-05-06] MEDS: FAMOTIDINE 20 MG TAB PO SCH ×2 (07:49→19:53)
[2022-05-06] MEDS: LOSARTAN POTASSIUM 50 MG TAB PO SCH (07:50)
[2022-05-06] MEDS: POLYETHYLENE (MIRALAX) 17 GM PACK PO SCH (07:50)
[2022-05-06] MEDS: oxyCODONE HCL IR 5 MG TAB (IMMEDIATE RELEASE) PO PRN ×3 (08:36→22:53)
[2022-05-06] MEDS: INSULIN ASPART PER UNIT SC SCH ×4 (08:38→20:59)
[2022-05-06] MEDS: LANTUS PER UNIT CHARGE SQ SCH ×2 (08:38→21:00)
[2022-05-06] MEDS: SODIUM CHLORIDE 0.9% 1000ML 1,000 ML IV SCH ×2 (12:58→13:44)
--- NOTE | 2022-05-06 15:50 | Hospitalist Progress Note ---
Date of Service May 06, 2022 Assessment & Plan (1) Post-operative pain: Plan: -He has been experiencing uncontrolled low back pain with radicular pain to the BL LE's and LLE weakness compared to the RLE s/p lumbar decompression and fusion revision L2-S1 on 04/26 -MRI of the lumbar spine was non-diagnostic due to artifact but shows a fluid collection at the surgical site, most likely a seroma -Dr. Purcell's team was consulted and reviewed the imaging, they agree that the fluid collection is likely a seroma at this time, they recommended admission for pain control until Dr. Purcell can see him on Friday -no further difficulty with voiding since starting Flomax here -continue pain control -dc IV tylenol and davida po, continue IV Dilaudid prn, continue oxycodone 10mg prn -Continue home gabapentin 100 mg PO TID -PRN Narcan ordered for oversedation -Q6h neuro checks, fall precautions, PT/OT consults placed-may need rehab -follow BCxs although no suspicion for infection at this time-no drainage, erythema, fevers, etc -await Ortho Spine eval on Friday -dc IVFs (2) Hypoxia: Plan: -Patient noted to be hypoxic on RA into the 's after receiving multiple episodes of Dilaudid -CXR negative -now on room air -continue Incentive spirometry and prn O2 to keep SpO2 at or greater than 95% (3) Depression: Plan: -Continue Paxil and amitriptyline (4) Hypertension: Plan: -Stable -Contiue losartan and metoprolol (5) Hyperlipidemia: Plan: -Continue atorvastatin (6) GERD (gastroesophageal reflux disease): Plan: -Continue famotidine (7) Diabetes mellitus, type 2: Plan: -Hold metformin -Monitor BSG ACHS, goal is 110-140 -5 units lantus BID, correction factor of 35 with carb ratio of 12 -DM II diet Plan DVT proph-SCDs only for now in case of need for surgical intervention Dispo-continued stay on med/surg Admission and Anticipated Discharge Date Admission Date: May 05, 2022 Subjective Still having a lot of lower back pain and some pain going down both legs. Pain worse with movement. No numbness or weakness. Is voiding today. Denies CP, SOB, lightheadedness, N/V. Last BM 2 days ago Physical Exam Constitutional: WD/WN, vitals as above + obese Respiratory: normal respiratory effort, lungs clear to auscultation Cardiovascular: RRR, no murmur, no edema Gastrointestinal (Abdomen): normal bowel sounds, soft, nontender, no hepatosplenomegaly Neurologic: PERRL, EOMI, accommodation nl, no face palsy, no dysarthria no focal motor deficits and not confused Pain in lower back with log rolling to left skin incision lower back c/d/i Results & Data Results & Data ([facility]) Vital Signs (Past 12 Hours) Vital Signs Temp Pulse Pulse Resp BP Pulse Ox O2 Del Method 05/06/22 14:29 36.7 C 76 18 132/79 96 Room Air 05/06/22 07:36 36.6 C 78 18 144/74 H 97 Room Air Laboratory Results CBC, BMP, Blood cultures reviewed PG Care Time/CCT Total # of Minutes Spent Total Time Spent with Patient: Total time spent is greater than 50% in coordination of care (as documented) at patient's floor/unit and/or counseling patient: Coding Level of Care Code 57089 SUB INP/OBS CARE 2/35MIN Diagnoses Post-operative pain G89.18 Hypoxia R09.02 Depression F32.A Hypertension I10 Hyperlipidemia E78.5 GERD (gastroesophageal reflux disease) K21.9 Diabetes mellitus, type 2 E11.9
[2022-05-06] MEDS ORDERED: ACETAMINOPHEN 325 MG TAB PO PRN (16:00)
[2022-05-06] MEDS: TAMSULOSIN HCL 0.4 MG CAP PO SCH (19:53)
[2022-05-06] MEDS: AMITRIPTYLINE HCL 100 MG TAB PO SCH (19:54)
[2022-05-06] MEDS: ATORVASTATIN 40 MG TAB PO SCH (19:54)
[2022-05-07] MEDS: oxyCODONE HCL IR 5 MG TAB (IMMEDIATE RELEASE) PO PRN ×3 (04:59→17:55)
[2022-05-07] MEDS: INSULIN ASPART PER UNIT SC SCH ×4 (09:26→22:12)
[2022-05-07] MEDS: LANTUS PER UNIT CHARGE SQ SCH ×2 (09:26→22:12)
[2022-05-07] MEDS: DOCUSATE SODIUM 100 MG CAP PO SCH ×2 (09:30→21:58)
[2022-05-07] MEDS: FAMOTIDINE 20 MG TAB PO SCH ×2 (09:30→21:58)
[2022-05-07] MEDS: GABAPENTIN 100 MG CAP PO SCH ×3 (09:31→21:57)
[2022-05-07] MEDS: LOSARTAN POTASSIUM 50 MG TAB PO SCH (09:32)
[2022-05-07] MEDS: METOPROLOL SUCC 25MG EXT REL TAB PO SCH (09:32)
[2022-05-07] MEDS: PARoxetine HCL 20 MG TAB PO SCH (09:33)
[2022-05-07] MEDS: POLYETHYLENE (MIRALAX) 17 GM PACK PO SCH (09:34)
--- NOTE | 2022-05-07 10:08 | Orthopedic Consultation ---
Date of Consultation May 07, 2022 Assessment & Plan (1) Neurogenic claudication due to lumbar spinal stenosis: This time obtain a CAT scan lumbar spine for better anatomical detail as there is significant motion artifact MRI. I discussed with the patient that he most likely has a postop seroma that we may need to evacuate. I will make him n.p.o. after midnight in the event we perform an I&D tomorrow. History of Present Illness Reason for Consultation: Back and leg pain Attending Physician: Usha Bryson MD History of Present Illness This is a 56-year-old male who presents approximately 10 days postop with worsening back and bilateral leg pain. Is exacerbated with standing and walking. He states it is in the buttocks but down the posterior thighs. Sitting and laying supine is comfortable. He notes no gross strength deficits. Denies any fevers or chills. Allergies Allergy/AdvReac Type Severity Reaction Status Date / Time shellfish derived Allergy Severe Throat Verified 05/05/22 12:08 swelling tramadol Allergy Mild Hives, Verified 05/05/22 12:08 dizziness, nausea acetaminophen AdvReac Mild Upset Verified 05/05/22 12:08 stomach Home Medications Medication Instructions Recorded Confirmed Type amitriptyline 100 mg tablet 100 mg PO HS 02/16/19 05/05/22 History atorvastatin 80 mg tablet (Lipitor) 80 mg PO HS 02/16/19 05/05/22 History famotidine 20 mg tablet (Pepcid) 20 mg PO BID 02/16/19 05/05/22 History gabapentin 100 mg capsule 100 mg PO TID 02/16/19 05/05/22 History losartan 50 mg tablet (Cozaar) 50 mg PO QAM 02/16/19 05/05/22 History metoprolol succinate 25 mg 25 mg PO QAM 02/23/19 05/05/22 History tablet,extended release 24 hr (Toprol XL) metformin 1,000 mg tablet 1,000 mg PO BID 02/29/20 05/05/22 History melatonin 10 mg tablet 10 mg PO HS 09/07/21 05/05/22 History oxycodone 10 mg tablet 10 mg PO Q6H PRN pain #30 tabs 10/31/21 05/05/22 Rx paroxetine HCl 30 mg tablet (Paxil) 30 mg PO QAM 04/05/22 05/05/22 History oxycodone 5 mg tablet 5 mg PO Q6H PRN pain, severe #30 04/27/22 05/05/22 Rx tabs Patient History Medical History CAD (coronary artery disease) 2007 x 2 stents (LAD, Diagonal) 2012 (PADMINI D1) cardiac stents x3 total (most recent stent 2011) No recent issues Degenerative disc disease s/p cervical fusion Depression Diabetes mellitus, type 2 NIDDM GERD (gastroesophageal reflux disease) controlled, stable per pt Hyperlipidemia Hypertension controlled, stable per pt Myocardial Infarction 2012 > stents SIDDHARTHA (obstructive sleep apnea) pt states the last sleep study was negative Surgical History Difficult intubation Right reverse total shoulder replacement (10/08/21): Glidescope#3, ETT 7.5 + PNB at [facility]. *Difficult airway* per anesthesia record comments. No issues noted per post-op anesthesia progress note. Fusion of spine ACDF C6-C7, C5 corpectomy: 08/08/10: MAC#4, ETT 7.5 at [facility] History of cardiac cath 2007 x 2 stents (LAD, Diagonal) 2011 (PADMINI D1) History of colonoscopy History of esophageal dilatation History of esophagogastroduodenoscopy (EGD) History of hip surgery right hip (as a child) History of lumbar fusion 10/04/2020: elective glidescope 3. ETT 8.0. History of repair of rotator cuff right History of reverse total replacement of right shoulder joint Right reverse total shoulder replacement (10/08/21): Glidescope#3, ETT 7.5 + PNB at [facility]. *Difficult airway* per anesthesia record comments. No issues noted per post-op anesthesia progress note. History of tooth extraction History of total knee replacement right knee S/P arthroscopy of right shoulder 03/18/19. 02/29/20. LMA#5. Family History Father Family history of diabetes mellitus Other No family history of adverse response to anesthesia Social History Smoking Status: Former smoker Smoking End Date: 2010; Second Hand Exposure: No; Hx Alcohol Use: Yes Alcohol type: beer Hx Substance Use: No Preferred Language: Mongolian Communication Ability: Effective Profiler Hand Required: No Beliefs That Will Affect Care: None marital status: Current Living Situation: Spouse Other Information That Helps Us Care for You: No Feels Safe at Home: Yes Safety Concerns: Feels Safe At This Time Assistive Devices: Walker Physical Exam Physical Exam: Patient does appear comfortable in bed. I did have him stand for me. He is struggles with walking secondary to pain. He is able to stand however without collapse. He has good strength testing otherwise. Incision is healing appropriately. There are some evidence of swelling but no fluid wave or erythema or drainage. Results & Data ([facility]) Vital Signs (Past 12 Hours) Vital Signs Temp Pulse Resp BP Pulse Ox O2 Del Method 05/07/22 07:45 36.8 C 77 16 143/81 H 98 Room Air
--- NOTE | 2022-05-07 12:08 | CT Scan Report ---
LUMBAR SPINE CT CT DOSE: 1035.08 mGy.cm HISTORY: Low back pain. postop pain TECHNIQUE: Multiaxial CT images of the lumbar spine were performed and reformatted in the sagittal an d coronal plane without the use of contrast. A dose lowering technique was utilized adhering to the principles of ALARA. COMPARISON: Lumbar spine MRI 05/05/2022. FINDINGS: Posterior decompression and fusion from L3 through S1 with pedicle screws and rods. Disc sp acers are placed. The hardware appears intact. Bone graft material noted at the pedicle screw heads. There is an acute nondisplaced left L3 transverse fracture. No additional fractures identified within the lumbar spine. Evaluation of the central canal is essentially nondiagnostic due to the CT techniq ue and metallic artifact. No definite high-grade central canal stenosis identified. Fluid collection at the laminectomy site and extending into the subcutaneous soft tissues is again noted and better ap preciated on the prior lumbar spine MRI. IMPRESSION: 1. Posterior decompression and fusion from L3 through S1 with pedicle screws and rods. The hardware a ppears intact. 2. There is an acute nondisplaced left L3 transverse process fracture. 3. Evaluation of the central canal is essentially nondiagnostic due to the CT technique and metallic artifact. However, no definite high-grade central canal stenosis identified. 4. Fluid collection at the laminectomy site and extending into the subcutaneous soft tissues is again noted and better appreciated on the prior lumbar spine MRI. ACT 112: Negative or not required by law. Electronically signed by: Walt Luna M.D. 05/07/2022 12:07 PM
--- NOTE | 2022-05-07 16:51 | Hospitalist Progress Note ---
Date of Service May 07, 2022 Assessment & Plan (1) Post-operative pain: Plan: -He has been experiencing uncontrolled low back pain with radicular pain to the BL LE's and LLE weakness compared to the RLE s/p lumbar decompression and fusion revision L2-S1 on 04/26 -MRI of the lumbar spine was non-diagnostic due to artifact but shows a fluid collection at the surgical site, most likely a seroma -Dr. Purcell was consulted and reviewed the imaging, plan for seroma drainage tomorrow -no further difficulty with voiding since starting Flomax here -continue pain control -tylenol prn, IV Dilaudid prn, continue oxycodone 10mg prn -Continue home gabapentin 100 mg PO TID -PRN Narcan ordered for oversedation -Q6h neuro checks, fall precautions, PT/OT consults placed-may need rehab -follow BCxs although no suspicion for infection at this time-no drainage, erythema, fevers, etc -NPO after midnight (2) Hypoxia: Plan: -Patient noted to be hypoxic on RA into the 80's after receiving multiple e pisodes of Dilaudid -CXR negative -now on room air -continue Incentive spirometry and prn O2 to keep SpO2 at or greater than 95% (3) Depression: Plan: -Continue Paxil and amitriptyline (4) Hypertension: Plan: -Stable -Contiue losartan and metoprolol (5) Hyperlipidemia: Plan: -Continue atorvastatin (6) GERD (gastroesophageal reflux disease): Plan: -Continue famotidine (7) Diabetes mellitus, type 2: Plan: -Hold metformin -Monitor BSG ACHS, goal is 110-140 --> well controlled here -5 units lantus BID, correction factor of 35 with carb ratio of 12 -DM II diet Plan DVT proph-SCDs only for now due to need for surgical intervention Dispo-continued stay on med/surg, NPO after midnight fir surgery. Possible dc to home on Admission and Anticipated Discharge Date Admission Date: May 07, 2022 Subjective Pain still severe in lower back and some pain radiating down both lower extremities although slightly improved down right LE today. Voiding completely, no BM. No nausea or ab dpain, no CP, SOB. Physical Exam Constitutional: WD/WN, vitals as above + obese Respiratory: normal respiratory effort, lungs clear to auscultation Cardiovascular: RRR, no murmur, no edema Gastrointestinal (Abdomen): normal bowel sounds, soft, nontender, no hepatosplenomegaly Neurologic: PERRL, EOMI, accommodation nl, no face palsy, no dysarthria no focal motor deficits and not confused Results & Data Results & Data ([facility]) Vital Signs (Past 12 Hours) Vital Signs Temp Pulse Resp BP Pulse Ox O2 Del Method 05/07/22 15:10 37.0 C 75 18 143/87 H 96 Room Air 05/07/22 11:18 37.1 C 77 16 151/85 H 99 Room Air 05/07/22 07:45 36.8 C 77 16 143/81 H 98 Room Air PG Care Time/CCT Total # of Minutes Spent Total Time Spent with Patient: Total time spent is greater than 50% in coordination of care (as documented) at patient's floor/unit and/or counseling patient: Coding Level of Care Code 39110 SUB INP/OBS CARE 1/25MIN Diagnoses Post-operative pain G89.18 Hypoxia R09.02 Depression F32.A Hypertension I10 Hyperlipidemia E78.5 GERD (gastroesophageal reflux disease) K21.9 Diabetes mellitus, type 2 E11.9
[2022-05-07] MEDS: HYDROmorphone INJ 1 MG/ML SYRINGE IV PRN (21:52)
[2022-05-07] MEDS: ATORVASTATIN 40 MG TAB PO SCH (21:57)
[2022-05-07] MEDS: AMITRIPTYLINE HCL 100 MG TAB PO SCH (21:58)
[2022-05-07] MEDS: TAMSULOSIN HCL 0.4 MG CAP PO SCH (21:58)
[2022-05-08] MEDS: oxyCODONE HCL IR 5 MG TAB (IMMEDIATE RELEASE) PO PRN ×4 (00:06→22:20)
[2022-05-08] MEDS ORDERED: Nursing to Pharmacy Communication SCH ×2 (05:45→22:30)
[2022-05-08] MEDS: INSULIN ASPART PER UNIT SC SCH ×4 (07:04→23:07)
[2022-05-08] MEDS: DOCUSATE SODIUM 100 MG CAP PO SCH ×2 (09:01→20:22)
[2022-05-08] MEDS: FAMOTIDINE 20 MG TAB PO SCH ×2 (09:02→20:22)
[2022-05-08] MEDS: GABAPENTIN 100 MG CAP PO SCH ×3 (09:02→20:21)
[2022-05-08] MEDS: LOSARTAN POTASSIUM 50 MG TAB PO SCH (09:03)
[2022-05-08] MEDS: METOPROLOL SUCC 25MG EXT REL TAB PO SCH (09:04)
[2022-05-08] MEDS: PARoxetine HCL 20 MG TAB PO SCH (09:04)
[2022-05-08] MEDS: POLYETHYLENE (MIRALAX) 17 GM PACK PO SCH (09:06)
[2022-05-08] MEDS: HYDROmorphone INJ 1 MG/ML SYRINGE IV PRN (10:49)
[2022-05-08] MEDS: LANTUS PER UNIT CHARGE SQ SCH ×2 (10:50→23:08)
--- NOTE | 2022-05-08 12:04 | Hospitalist Progress Note ---
Date of Service May 08, 2022 Assessment & Plan (1) Post-operative pain: Plan: -Admit to med/surge -The patient is currently afebrile, hemodynamically stable, and stable on 2L NC -He has been experiencing uncontrolled low back pain with radicular pain to the BL LE's and LLE weakness compared to the RLE -MRI of the lumbar spine was non-diagnostic due to artifact but shows a fluid collection at the surgical site, most likely a seroma -Dr. Purcell's team was consulted and reviewed the imaging, they agree that the fluid collection is likely a seroma at this time, they recommended admission for pain control until Dr. Purcell can see him on Friday -Patient notes difficulty starting his urine stream, he has a history of this prior and was evaluated by Urology who started him on Flomax, his symptoms resolved -Will restart the patient on Flomax tonight and monitor intake and output closely -Pain control with the following: >1000 mg IV tylenol q8h adalgisa >Dilaudid 0.5 mg q4h prn pain 1,2,3 >Dilaudid 1 mg IV q4h prn pain 4,5,6+ >Continue home gabapentin 100 mg PO TID -PRN Narcan ordered for oversedation -Q6h neuro checks, fall precautions, PT/OT consults placed -Will start DVT PPX with BL SCDs for now -AM CBC and BMP (2) Hypoxia: Plan: -Patient noted to be hypoxic on RA into the 80's after receiving multiple episodes of Dilaudid -He appears fatigued on my exam and possibly has untreated sleep apnea -Currently stable on 2L NC, will obtain a CXR -Incentive spirometry and prn O2 to keep SpO2 at or greater than 95% (3) Depression: Plan: -Continue Paxil and amitriptyline (4) Hypertension: Plan: -Stable -Contiue losartan and metoprolol (5) Hyperlipidemia: Plan: -Continue atorvastatin (6) GERD (gastroesophageal reflux disease): Plan: -Continue famotidine (7) Diabetes mellitus, type 2: Plan: -Hold metformin -Monitor BSG ACHS, goal is 110-140 -5 units lantus BID, correction factor of 35 with carb ratio of 12 -DM II diet Plan The patient was discussed with Dr. Laureano at the time of the admission Admission and Anticipated Discharge Date Admission Date: May 07, 2022 Subjective Pt reports ongoing pain in lower back and down LEs, no change from previous if not slightly worse on right side today. No fevers. No CP, SOB. Is moving bowels and voiding Review of Systems Review of Systems: All systems reviewed & are unremarkable except as noted in HPI & below Physical Exam Constitutional: WD/WN, vitals as above + obese Respiratory: normal respiratory effort, lungs clear to auscultation Cardiovascular: RRR, no murmur, no edema Gastrointestinal (Abdomen): normal bowel sounds, soft, nontender, no hepatosplenomegaly Neurologic: PERRL, EOMI, accommodation nl, no face palsy, no dysarthria no focal motor deficits and not confused Results & Data Results & Data ([facility]) Vital Signs (Past 12 Hours) Vital Signs Temp Pulse Resp BP Pulse Ox O2 Del Method 05/08/22 08:58 36.9 C 69 18 142/88 H 97 Room Air PG Care Time/CCT Total # of Minutes Spent Total Time Spent with Patient: Total time spent is greater than 50% in coordination of care (as documented) at patient's floor/unit and/or counseling patient: Coding Diagnoses Post-operative pain G89.18 Hypoxia R09.02 Depression F32.A Hypertension I10 Hyperlipidemia E78.5 GERD (gastroesophageal reflux disease) K21.9 Diabetes mellitus, type 2 E11.9
--- NOTE | 2022-05-08 12:06 | Hospitalist Progress Note ---
Date of Service May 08, 2022 Assessment & Plan (1) Post-operative pain: Plan: -He has been experiencing uncontrolled low back pain with radicular pain to the BL LE's and LLE weakness compared to the RLE s/p lumbar decompression and fusion revision L2-S1 on 04/26 -MRI of the lumbar spine was non-diagnostic due to artifact but shows a fluid collection at the surgical site, most likely a seroma -Dr. Purcell was consulted and reviewed the imaging, plan for seroma drainage tomorrow -no further difficulty with voiding since starting Flomax here -continue pain control -tylenol prn, IV Dilaudid prn, continue oxycodone 10mg prn -Continue home gabapentin 100 mg PO TID -PRN Narcan ordered for oversedation -Q6h neuro checks, fall precautions, PT/OT consults placed-may need rehab -follow BCxs although no suspicion for infection at this time-no drainage, erythema, fevers, etc (2) Depression: Plan: -Continue Paxil and amitriptyline (3) Hypertension: Plan: -Stable -Continue losartan and metoprolol (4) Hyperlipidemia: Plan: -Continue atorvastatin (5) GERD (gastroesophageal reflux disease): Plan: -Continue famotidine (6) Diabetes mellitus, type 2: Plan: -Hold metformin -Monitor BSG ACHS, goal is 110-140 --> well controlled here -5 units lantus BID, correction factor of 35 with carb ratio of 12-holding Lantus this AM while NPO for surgery -DM II diet Plan Plan DVT proph-SCDs only for now due to need for surgical intervention Dispo-continued stay on med/surg. Possible dc to home on Admission and Anticipated Discharge Date Admission Date: May 07, 2022 Subjective Pt reports ongoing pain in lower back and down LEs, no change from previous if not slightly worse on right side today. No fevers. No CP, SOB. Is moving bowels and voiding Physical Exam Constitutional: WD/WN, vitals as above + obese Respiratory: normal respiratory effort, lungs clear to auscultation Cardiovascular: RRR, no murmur, no edema Gastrointestinal (Abdomen): normal bowel sounds, soft, nontender, no hepatosplenomegaly Neurologic: PERRL, EOMI, accommodation nl, no face palsy, no dysarthria no focal motor deficits and not confused Results & Data Results & Data ([facility]) Vital Signs (Past 12 Hours) Vital Signs Temp Pulse Resp BP Pulse Ox O2 Del Method 05/08/22 08:58 36.9 C 69 18 142/88 H 97 Room Air PG Care Time/CCT Total # of Minutes Spent Total Time Spent with Patient: Total time spent is greater than 50% in coordination of care (as documented) at patient's floor/unit and/or counseling patient: Coding Level of Care Code 89941 SUB INP/OBS CARE 04/03MIN Diagnoses Post-operative pain G89.18 Depression F32.A Hypertension I10 Hyperlipidemia E78.5 GERD (gastroesophageal reflux disease) K21.9 Diabetes mellitus, type 2 E11.9
[2022-05-08] MEDS ORDERED: HYDROmorphone INJ 2 MG/ML SYR/VIAL IV PRN (13:49)
[2022-05-08] MEDS ORDERED: ePHEDrine sulfate 50 MG/ML AMP IV PRN (13:49)
[2022-05-08] MEDS ORDERED: ONDANSETRON INJ 2 MG/ML 2 ML VIAL IV PRN ×2 (13:49→17:03)
[2022-05-08] MEDS ORDERED: ATROPINE SULFATE 0.1 MG/ML 10ML SYR IV PRN (13:49)
[2022-05-08] MEDS ORDERED: PROMETHAZINE HCL 6.25 MG in SODIUM CHLORIDE 0.9% 50 ML IV PRN (13:49)
--- NOTE | 2022-05-08 13:53 | Anesthesiology Consultation ---
Date of Service May 08, 2022 Assessment & Plan (1) Encounter for pre-operative examination: Chart Review Chart Review: Acceptable Risk for Surgery and Patient NOT seen in Pre Admission Testing Consults Requested none History Surgery Operation Date: 05/08/22 14:15 Proposed Procedures p Incision and Drainage Lumbar Spine - Mynor Purcell DO Height/Weight Height: 5 ft 10 in Weight: 122.9 kg Allergies Allergy/AdvReac Type Severity Reaction Status Date / Time shellfish derived Allergy Severe Throat Verified 05/05/22 12:08 swelling tramadol Allergy Mild Hives, Verified 05/05/22 12:08 dizziness, nausea acetaminophen AdvReac Mild Upset Verified 05/05/22 12:08 stomach Medications Home Medications Medication Instructions Recorded Confirmed Last Taken amitriptyline 100 mg tablet 100 mg PO HS 02/16/19 05/05/22 05/04/22 atorvastatin 80 mg tablet (Lipitor) 80 mg PO HS 02/16/19 05/05/22 05/04/22 famotidine 20 mg tablet (Pepcid) 20 mg PO BID 02/16/19 05/05/22 05/05/22 gabapentin 100 mg capsule 100 mg PO TID 02/16/19 05/05/22 05/05/22 losartan 50 mg tablet (Cozaar) 50 mg PO QAM 02/16/19 05/05/22 05/05/22 metoprolol succinate 25 mg 25 mg PO QAM 02/23/19 05/05/22 05/05/22 tablet,extended release 24 hr (Toprol XL) metformin 1,000 mg tablet 1,000 mg PO BID 02/29/20 05/05/22 05/05/22 melatonin 10 mg tablet 10 mg PO HS 09/07/21 05/05/22 05/04/22 oxycodone 10 mg tablet 10 mg PO Q6H PRN pain #30 tabs 10/31/21 05/05/22 05/05/22 paroxetine HCl 30 mg tablet (Paxil) 30 mg PO QAM 04/05/22 05/05/22 05/05/22 oxycodone 5 mg tablet 5 mg PO Q6H PRN pain, severe #30 04/27/22 05/05/22 tabs Active Medications Generic Name Dose Route Start Last Admin Trade Name Freq PRN Reason Stop Dose Admin Amitriptyline HCl 100 mg 05/05/22 21:51 05/07/22 21:58 Amitriptyline Hcl 100 Mg Tab PO 06/04/22 21:50 100 mg HS LATOYA Administration Atorvastatin Calcium 80 mg 05/05/22 21:51 05/07/22 21:57 Atorvastatin 40 Mg Tab PO 06/04/22 21:50 80 mg HS LATOYA Administration Docusate Sodium 100 mg 05/05/22 21:00 05/08/22 09:01 Docusate Sodium 100 Mg Cap PO 06/04/22 20:59 100 mg BID LATOYA Administration Famotidine 20 mg 05/05/22 21:51 05/08/22 09:02 Famotidine 20 Mg Tab PO 06/04/22 21:50 20 mg BID LATOYA Administration Gabapentin 100 mg 05/05/22 21:51 05/08/22 09:02 Gabapentin 100 Mg Cap PO 06/04/22 21:50 100 mg TID LATOYA Administration Hydromorphone HCl 1 mg 05/05/22 18:44 05/08/22 10:49 Hydromorphone Inj 1 Mg/Ml Syringe IV 05/19/22 18:43 1 mg Q4H PRN Administration Pain (4,5,6+) Insulin Aspart 0 units 05/08/22 06:00 05/08/22 12:43 Insulin Aspart Per Unit SC 06/07/22 05:59 Not Given Q6 LATOYA Insulin Glargine 5 units 05/05/22 21:00 05/08/22 10:50 Lantus Per Unit Charge SQ 06/04/22 20:59 Not Given BID LATOYA Losartan Potassium 50 mg 05/06/22 09:00 05/08/22 09:03 Losartan Potassium 50 Mg Tab PO 06/05/22 08:59 50 mg QAM LATOYA Administration Metoprolol Succinate 25 mg 05/06/22 09:00 05/08/22 09:04 Metoprolol Succ 25mg Ext Rel Tab PO 06/05/22 08:59 25 mg QAM LATOYA Administration Oxycodone HCl 10 mg 05/06/22 08:26 05/08/22 08:59 Oxycodone Hcl Ir 5 Mg Tab (Immediate Release) PO 05/20/22 08:25 10 mg Q6H PRN Administration moderate-severe pain Paroxetine HCl 30 mg 05/06/22 09:00 05/08/22 09:04 Paroxetine Hcl 20 Mg Tab PO 06/05/22 08:59 30 mg QAM LATOYA Administration Polyethylene Glycol 17 gm 05/06/22 09:00 05/08/22 09:06 Polyethylene (Miralax) 17 Gm Pack PO 06/05/22 08:59 Not Given DAILY LATOYA Tamsulosin HCl 0.4 mg 05/06/22 21:00 05/07/22 21:58 Tamsulosin Hcl 0.4 Mg Cap PO 06/05/22 20:59 0.4 mg HS LATOYA Administration NPO Date Last Intake of Fluids: 05/07/22 Time Last Intake of Fluids: 23:59 Date Last Intake of Solids: 05/07/22 Time Last Intake of Solids: 20:00 Past Medical History Medical History CAD (coronary artery disease) 2007 x 2 stents (LAD, Diagonal) 2011 (PADMINI D1) cardiac stents x3 total (most recent stent 2011) No recent issues Degenerative disc disease s/p cervical fusion Depression Diabetes mellitus, type 2 NIDDM GERD (gastroesophageal reflux disease) controlled, stable per pt Hyperlipidemia Hypertension controlled, stable per pt Myocardial Infarction 2012 > stents SIDDHARTHA (obstructive sleep apnea) pt states the last sleep study was negative Past Family History Family History Father Family history of diabetes mellitus Other No family history of adverse response to anesthesia Past Surgical History Surgical History Difficult intubation Right reverse total shoulder replacement (10/08/21): Glidescope#3, ETT 7.5 + PNB at [facility]. *Difficult airway* per anesthesia record comments. No issues noted per post-op anesthesia progress note. Fusion of spine ACDF C6-C7, C5 corpectomy: 08/08/10: MAC#4, ETT 7.5 at [facility] History of cardiac cath 2007 x 2 stents (LAD, Diagonal) 2011 (PADMINI D1) History of colonoscopy History of esophageal dilatation History of esophagogastroduodenoscopy (EGD) History of hip surgery right hip (as a child) History of lumbar fusion 10/04/2020: elective glidescope 3. ETT 8.0. History of repair of rotator cuff right History of reverse total replacement of right shoulder joint Right reverse total shoulder replacement (10/08/21): Glidescope#3, ETT 7.5 + PNB at [facility]. *Difficult airway* per anesthesia record comments. No issues noted per post-op anesthesia progress note. History of tooth extraction History of total knee replacement right knee S/P arthroscopy of right shoulder 03/18/19. 02/29/20. LMA#5. Social History Smoking Status: Former smoker tobacco type: cigarettes Smoking End Date: 2010 Hx Alcohol Use: Yes Alcohol type: beer alcohol intake frequency: holidays/special occasions only Hx Substance Use: No substance use type: does not use Physical Exam Vital Signs Last Vital Signs Temp 36.7 C 05/08/22 13:45 Pulse 73 05/08/22 13:45 Resp 20 05/08/22 13:45 BP 143/87 H 05/08/22 13:45 Pulse Ox 98 05/08/22 13:45 O2 Del Method Room Air 05/08/22 13:45 O2 Flow Rate 2 05/05/22 21:03 Testing Laboratory Results 05/06/22 06:17 05/06/22 06:17 PT 11.6 Seconds (9.0-12.0) 05/06/22 06:17 INR 1.1 (0.9-1.1) 05/06/22 06:17 05/05/22 21:01 Aerobic Blood Culture - Preliminary Blood No growth in Aerobic bottle after 48 hours. Anaerobic Blood Culture - Preliminary No growth in Anaerobic bottle after 48 hours. 05/05/22 21:06 Aerobic Blood Culture - Preliminary Blood No growth in Aerobic bottle after 48 hours. Anaerobic Blood Culture - Preliminary No growth in Anaerobic bottle after 48 hours. 05/08/22 05/08/22 11:59 05:16 POC Glucose 115 H 133 H Electrocardiogram Date: 09/18/21 Chest X-Ray DICTATED BY:aBndar Varghese MD Test Reason : Blood Pressure : / mmHG Vent. Rate : 082 BPM Atrial Rate : 082 BPM P-R Int : 168 ms QRS Dur : 094 ms QT Int : 404 ms P-R-T Axes : 078 072 067 degrees QTc Int : 472 ms Normal sinus rhythm Normal ECG When compared with ECG of 23-FEB-2020 08:02, No significant change was found Confirmed by Bandar Varghese ([id number]) on 09/18/2021 12:11:51 PM Other Testing Chest X-Ray Date: 09/18/21 No lines and tubes are seen. The cardiomediastinal silhouette is normal. The lungs are clear. No evidence of pleural effusion or pneumothorax. IMPRESSION: No acute chest disease. Echocardiogram Date: 09/22/20 EF 50% Severe hypokinesis of the mid-distal anterior and mid-distal anterolateral flynn and basal inferoseptum and basal inferior wall Mild cLVH No significant valvular pathology Cervical Spine Date: 05/22/21 MRI Cervical spine: Vertebral body height and alignment is maintained throughout the cervical spine. There is extensive postoperative change from anterior fusion seen at C4-C7. There is associated straightening of cervical lordosis. Anterior osteophytes are seen throughout. The atlantodental articulation is maintained. The spinous processes appear intact. There is no marrow edema or evidence of d estructive bony lesion. Intervertebral discs: There is evidence of discectomy at C4-C5, C5-C6, and C6- C7. Disc desiccation and moderate loss of height is seen at the remaining cervical levels. Spinal cord: The cervical cord is normal in morphology and signal intensity. C2-C3: There is a large right lateral disc bulge seen on axial image #15. This contributes to moderate to severe central canal stenosis and likely impinges on the exiting right C3 nerve root. A posterior disc osteophyte complex minimally effaces the ventral subarachnoid space. Uncovertebral arthropathy is noted on the left. The left neural foramen is clear. C3-C4: A posterior disc osteophyte complex abuts the ventral cord. Lateral disc bulge is seen bilaterally. In conjunction with facet arthropathy there is severe right and moderate to severe left neural foraminal stenosis. This likely impinges on the exiting bilateral C4 nerve roots. C4-C5: Predominantly uncovertebral arthropathy contributes to mild bilateral neural foraminal stenosis, right greater than left. The central canal appears clear. C5-C6: Predominant uncovertebral arthropathy contributes to mild bilateral neural foraminal stenosis. The central canal is clear. C6-C7: Lateral disc bulge is seen bilaterally, left greater than right. This contributes to moderate to severe left greater than right neural foraminal stenosis and may impinge on the exiting bilateral C7 nerve roots. There is no significant acquired compromise of the central canal. C7-T1: There is a posterior disc herniation eccentric to the left which effaces the left aspect of the ventral cord. This contributes to moderate to severe left-sided neural foraminal stenosis and impinges on the exiting left C8 nerve root. Mild neural foraminal narrowing is seen on the right. T1-T2: There is a large left lateral disc herniation which effaces the left aspect of the ventral cord. There is severe left-sided neural foraminal stenosis with impingement on the exiting left T1 nerve root. Right lateral disc bulge contributes to moderate neural foraminal stenosis and may impinge on the exiting right T1 nerve root. T2-T3: Posterior disc bulge effaces the ventral subarachnoid space. The neural foramina appear clear. Soft tissues: The prevertebral and paraspinous soft tissues are normal as vis ualized. Brain parenchyma: The imaged brain parenchyma at the skull base is within normal limits. IMPRESSION: 1. Postoperative change with multilevel spondylosis of the cervical and upper thoracic spine as detailed above. See discussion for detailed level by level analysis. 2. The cervical cord is normal in morphology and signal intensity. 3. No destructive bony process is identified.
[2022-05-08] MEDS ORDERED: DEXAMETHASONE SOD INJ 4 MG/ML VIAL ONE ×2 (13:55→13:57)
[2022-05-08] MEDS ORDERED: ROCURONIUM BROMIDE 10 MG/ML 5 ML VIAL IV ONE (13:55)
[2022-05-08] MEDS ORDERED: PROPOFOL IV EMULSION 10 MG/ML 20 ML VIAL IV ONE ×2 (13:55→14:00)
[2022-05-08] MEDS ORDERED: ONDANSETRON INJ 2 MG/ML 2 ML VIAL ONE (13:55)
[2022-05-08] MEDS ORDERED: SUCCINYLCHOLINE CHLORIDE 20 MG/ML 10 ML VIAL IV ONE (13:55)
[2022-05-08] MEDS ORDERED: fentaNYL citrate 100 MCG/2 ML VIAL ONE (13:57)
[2022-05-08] MEDS ORDERED: ceFAZolin 330 MG/ML 1 GM VIAL ONE (14:13)
--- NOTE | 2022-05-08 14:30 | History & Physical Bridge Note ---
Date of Service May 08, 2022 History & Physical Bridge Note I have examined the patient, reviewed the History & Physical and in the interval since the performance of the History & Physical I have noted the following changes of clinical significance: no changes noted Patient continues to have back and bilateral leg pain with any activity particularly standing and walking and is here for irrigation debridement of the lumbar spine
[2022-05-08] MEDS ORDERED: BUPIVACAINE/EPINEPHRINE 0.25% 1:200,000 30 ML VIAL ONE (14:46)
[2022-05-08] MEDS ORDERED: HYDROmorphone INJ 2 MG/ML SYR/VIAL ONE (15:16)
[2022-05-08] MEDS ORDERED: FLOSEAL HEMOSTATIC MATRIX 10ML TOP ONE (15:30)
--- NOTE | 2022-05-08 15:31 | Operative Report ---
Post Operative Report Pre & Post Diagnosis Operation Date: 05/08/22 14:15 Preop diagnosis: Postoperative hematoma Postop diagnosis: Same I identified the patient and participated in the time-out.: Yes Procedure Operation Date: 05/08/22 14:15 Irrigation debridement of lumbar hematoma Surgeon Mynor Purcell DO Business Support Coordinator Cathleen Dugan Estimated Blood Loss 20 Findings Consistent with Post-Op Diagnosis Specimens None Indications This is a 52-year-old male well-known to me the presents with worsening back and by leg pain over the course the past few days. Is been progressive in nature. In light of his imaging and clinical presentation we elected undergo irrigation debridement of hematoma. Description of Procedure Patient was met with identified informed consent obtained. Patient was then taken to the operative suite underwent intubation placed in a prone position on the Jose table on top of the Ed frame. All bony prominences well-padded eyes inspected to ensure no external pressure placed upon them. This point the lumbar spine was prepped and draped in normal sterile fashion. Sharp dissection was performed down to and exposing the epidural space along the previous incision. Obvious massive amounts of blood were identified consistent with a postop lumbar hematoma. Several liters of saline were then utilized to irrigate the incision. I then placed 2 15 round KAVITA drains in the epidural space. The incision was then closed with 1 Vicryl in the fascia 2-0 Vicryl subcutaneously and 4 Monocryl for final skin closure. Steri-Strip sterile dressings placed. Patient awakened and taken to PACU in stable condition. Please note Cathleen Dugan was present out the entire procedure involved the patient positioning complex portions of the surgery and final skin closure. I attest to the content of the Intraoperative Record and any orders documented therein. Any exceptions are noted below.
[2022-05-08] MEDS: fentaNYL citrate 100 MCG/2 ML VIAL IV PRN ×4 (16:10→16:26)
--- NOTE | 2022-05-08 16:22 | Anesthesiology Progress Note ---
Date of Service May 08, 2022 Anesthesia Post Procedure Vital Signs Vital Signs: Temp Pulse Pulse Resp BP Pulse Ox Pulse Ox 05/08/22 15:55 102 H 16 133/85 98 05/08/22 15:49 36.2 C L 83 18 171/80 H 97 05/08/22 13:45 36.7 C 73 20 143/87 H 98 05/08/22 08:58 36.9 C 69 18 142/88 H 97 05/07/22 20:00 05/07/22 21:16 37.1 C 78 18 162/85 H 96 05/07/22 18:00 98 O2 Del Method O2 Del Method O2 Flow Rate 05/08/22 15:55 Oxymask 10 05/08/22 15:49 Oxymask 10 05/08/22 13:45 Room Air 05/08/22 08:58 Room Air 05/07/22 20:00 Room Air 05/07/22 21:16 Room Air 05/07/22 18:00 Room Air Pain Intensity Back: Pain Intensity: 4 Transfer of Care Handoff Completed per policy Notes Mental Status: alert / awake / arousable and participated in evaluation Patient Amnestic to Procedure: Yes Nausea / Vomiting: adequately controlled Pain: adequately controlled Airway Patency, RR, SpO2: stable & adequate BP & HR: stable & adequate Hydration State: stable & adequate Anesthetic Complications: no major complications apparent and Pt Satisfied with anesthetic care
[2022-05-08] MEDS ORDERED: LORazepam 0.5 MG TAB PO PRN (17:03)
[2022-05-08] MEDS ORDERED: DO NOT ADMINISTER PNEUMOCOCCAL VACCINE PRN (17:03)
[2022-05-08] MEDS ORDERED: NALOXONE HCL 0.4 MG/1 ML VIAL/CARP IV PRN (17:03)
[2022-05-08] MEDS ORDERED: ALUMINUM/MAGNESIUM SUSP 30 ML UDC PO PRN (17:03)
[2022-05-08] MEDS ORDERED: bisacodyL 10 MG SUPP PR PRN (17:03)
[2022-05-08] MEDS ORDERED: METOCLOPRAMIDE HCL INJ 5 MG/ML 2 ML VIAL IV PRN (17:03)
[2022-05-08] MEDS ORDERED: MAGNESIUM HYDROXIDE SUSP 30 ML UDC PO PRN (17:03)
[2022-05-08] MEDS ORDERED: ONDANSETRON 4 MG OD TAB PO PRN (17:03)
[2022-05-08] MEDS ORDERED: LORazepam 2 MG/1 ML VIAL IV PRN (17:03)
[2022-05-08] MEDS ORDERED: hydrOXYzine HCl 25 MG TAB PO PRN (17:03)
[2022-05-08] MEDS ORDERED: SOD PHOSPHATE/SOD BIPHOSPHATE ENEMA 132 ML BTL PR PRN (17:03)
[2022-05-08] MEDS ORDERED: diphenhydrAMINE Capsule 25 MG CAP PO PRN (17:03)
[2022-05-08] MEDS ORDERED: DO NOT ADMINISTER FLU VACCINE PRN (17:03)
[2022-05-08] MEDS ORDERED: FAMOTIDINE 20 MG TAB PO PRN (17:03)
[2022-05-08] MEDS ORDERED: PROMETHAZINE HCL 12.5 MG in SODIUM CHLORIDE 0.9% 50 ML IV PRN (17:03)
[2022-05-08] MEDS: SODIUM CHLORIDE 0.9% 1000ML 1,000 ML IV SCH (17:53)
[2022-05-08] MEDS: HYDROmorphone INJ 0.5 MG/0.5 ML SYR IV PRN (20:20)
[2022-05-08] MEDS: CYCLOBENZAPRINE HCL 10 MG TAB PO PRN (20:21)
[2022-05-08] MEDS: DOCUSATE SODIUM/SENNA 50/8.6MG TAB PO SCH (20:21)
[2022-05-08] MEDS: ATORVASTATIN 40 MG TAB PO SCH (20:21)
[2022-05-08] MEDS: AMITRIPTYLINE HCL 100 MG TAB PO SCH (20:22)
[2022-05-08] MEDS: TAMSULOSIN HCL 0.4 MG CAP PO SCH (20:24)
[2022-05-08] MEDS: ceFAZolin 2000MG 2,000 MG/15 ML SYR IV SCH (22:21)
[2022-05-09] MEDS: SODIUM CHLORIDE 0.9% 1000ML 1,000 ML IV SCH (02:13)
[2022-05-09] MEDS: oxyCODONE HCL IR 5 MG TAB (IMMEDIATE RELEASE) PO PRN ×4 (03:18→22:08)
[2022-05-09] MEDS: ceFAZolin 2000MG 2,000 MG/15 ML SYR IV SCH (05:54)
[2022-05-09] MEDS: POLYETHYLENE (MIRALAX) 17 GM PACK PO SCH ×3 (05:55→21:22)
[2022-05-09] MEDS: HYDROmorphone INJ 0.5 MG/0.5 ML SYR IV PRN ×3 (06:00→19:49)
[2022-05-09 08:23] LABS: BUN Creatinine Ratio 13.7 (10-20); Calcium 8.7 mg/dl (8.5-10.1); Creatinine Clr Calc Pharmacy 148.6 ml/min; Est GFR (African American) 120.2 ml/min; Est GFR (Non-African American) 103.7 ml/min; Potassium 4.2 mmol/L (3.5-5.1)
[2022-05-09 08:36] LABS: Basophils # (auto) 0.02 K/uL (0-0.2); Basophils % (auto) 0.1 %; Hematocrit (blood only) 34.1 % (42.0-52.0); Hemoglobin 11.5 g/dl (14.0-18.0); Immature Granulocytes # (auto) 0.09 K/uL (0.01-0.20); Immature Granulocytes % (auto) 0.6 %; Lymphocytes # (auto) 0.95 K/uL (1.2-3.4); Mean Corpuscular Hemoglobin 31.1 pg (25.0-34.0); Mean Corpuscular Hgb Conc 33.7 g/dL (32.0-36.0); Mean Corpuscular Volume 92.2 fL (80.0-100.0); Mean Platelet Volume 9.8 fL (9.4-12.4); Monocytes # (auto) 0.71 K/uL (0.11-0.59); Monocytes % (auto) 4.5 %; Neutrophils # (auto) 13.98 K/uL (1.40-6.50); Neutrophils % (auto) 88.8 %; Platelet Count 267 K/uL (130-400); RDW Coefficient of Variation 12.7 % (11.5-14.5); RDW Standard Deviation 42.9 fL (36.4-46.3); White Blood Count 15.75 K/ul (4.8-10.8)
--- NOTE | 2022-05-09 08:41 | Orthopedic Progress Note ---
Date of Service May 09, 2022 Assessment & Plan (1) Postoperative seroma: Plan: This time we will have him ambulate as tolerated today. Monitor his KAVITA output anticipate discharge tomorrow with his drains. Admission and Anticipated Discharge Date Admission Date: May 07, 2022 Subjective Back pain improved leg pain improved. Patient has been up and ambulating. Physical Exam Physical Exam: Patient is currently in bed. Is constricted testing. Appears comfortable. Results & Data ([facility]) Vital Signs (Past 12 Hours) Vital Signs Temp Pulse Pulse Resp BP Pulse Ox O2 Del Method 05/09/22 07:15 36.4 C L 69 16 137/82 94 Room Air 05/09/22 03:20 36.5 C 73 16 145/69 H 96 Room Air 05/08/22 22:07 36.4 C L 89 18 124/76 94 Room Air 05/08/22 22:06 Room Air
[2022-05-09] MEDS: LANTUS PER UNIT CHARGE SQ SCH ×2 (09:17→21:29)
[2022-05-09] MEDS: INSULIN ASPART PER UNIT SC SCH ×4 (09:17→21:25)
[2022-05-09] MEDS: FAMOTIDINE 20 MG TAB PO SCH ×2 (09:21→21:19)
[2022-05-09] MEDS: GABAPENTIN 100 MG CAP PO SCH ×3 (09:21→21:19)
[2022-05-09] MEDS: DOCUSATE SODIUM 100 MG CAP PO SCH ×2 (09:21→21:19)
[2022-05-09] MEDS: METOPROLOL SUCC 25MG EXT REL TAB PO SCH (09:22)
[2022-05-09] MEDS: LOSARTAN POTASSIUM 50 MG TAB PO SCH (09:22)
[2022-05-09] MEDS: PARoxetine HCL 20 MG TAB PO SCH (09:22)
--- NOTE | 2022-05-09 19:16 | Hospitalist Progress Note ---
Date of Service May 09, 2022 Assessment & Plan (1) Post-operative pain: Plan: -p/w uncontrolled low back pain with radicular pain to the BL LE's and LLE weakness compared to the RLE s/p lumbar decompression and fusion revision L2-S1 on 04/26 -MRI of the lumbar spine was non-diagnostic due to artifact but shows a fluid collection at the surgical site, most likely a seroma -Dr. Purcell was consulted and reviewed the imaging, went for surgical drainage of large hematoma on 05/08. No signs of infection, drains in place -now much improved, pain almost completely resolved -no further difficulty with voiding since starting Flomax here -continue pain control -tylenol prn, IV Dilaudid prn, continue oxycodone 10mg prn -Continue home gabapentin 100 mg PO TID -PRN Narcan ordered for oversedation -follow BCxs although no suspicion for infection at this time-no drainage, erythema, fevers, etc -hgb drop slightly since admission from 13 to 11 -check CBC, BMP in AM post-op care as per Dr. Purcell, possible dc to home tomorrow (2) Depression: Plan: -Continue Paxil and amitriptyline (3) Hypertension: Plan: -Stable -Continue losartan and metoprolol (4) Hyperlipidemia: Plan: -Continue atorvastatin (5) GERD (gastroesophageal reflux disease): Plan: -Continue famotidine (6) Diabetes mellitus, type 2: Plan: -Hold metformin -Monitor BSG ACHS, goal is 110-140 --> well controlled here except some hyperglycemia now post-op--> question if had steroids perioperatively? 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 Possible dc to home tomorrow Admission and Anticipated Discharge Date Admission Date: May 07, 2022 Subjective Feeling much better today. Pain is significantl yimproved in lower back and hardly any at all down legs. Had hematoma removed yesterday. Drains in place in lower back, slight drainage. No CP, SOB, nausea. Moving bowels. Review of Systems Review of Systems: All systems reviewed & are unremarkable except as noted in HPI & below Physical Exam Constitutional: WD/WN, vitals as above + obese Respiratory: normal respiratory effort, lungs clear to auscultation Cardiovascular: RRR, no murmur, no edema Gastrointestinal (Abdomen): normal bowel sounds, soft, nontender, no hepatosplenomegaly Musculoskeletal: dressing in place over lower back c/d/i, KAVITA drains scant serosang drainage Neurologic: no focal motor deficits and not confused Results & Data Results & Data ([facility]) Vital Signs (Past 12 Hours) Vital Signs Temp Pulse Resp BP Pulse Ox O2 Del Method 05/09/22 15:22 36.8 C 70 16 125/67 97 Room Air 05/09/22 11:05 36.8 C 76 18 132/73 97 Room Air 05/09/22 07:15 36.4 C L 69 16 137/82 94 Room Air Laboratory Results CBC and BMP reviewed BCxs remain NGTD PG Care Time/CCT Total # of Minutes Spent Total Time Spent with Patient: Total time spent is greater than 50% in coordination of care (as documented) at patient's floor/unit and/or counseling patient: Coding Level of Care Code 23580 SUB INP/OBS CARE 125MIN Diagnoses Post-operative pain G89.18 Depression F32.A Hypertension I10 Hyperlipidemia E78.5 GERD (gastroesophageal reflux disease) K21.9 Diabetes mellitus, type 2 E11.9
[2022-05-09] MEDS: CYCLOBENZAPRINE HCL 10 MG TAB PO PRN (19:49)
[2022-05-09] MEDS: AMITRIPTYLINE HCL 100 MG TAB PO SCH (21:18)
[2022-05-09] MEDS: ATORVASTATIN 40 MG TAB PO SCH (21:18)
[2022-05-09] MEDS: TAMSULOSIN HCL 0.4 MG CAP PO SCH (21:18)
[2022-05-09] MEDS: DOCUSATE SODIUM/SENNA 50/8.6MG TAB PO SCH (21:19)
[2022-05-09] MEDS ORDERED: Nursing to Pharmacy Communication SCH (22:15)
[2022-05-10 07:34] LABS: Basophils # (auto) 0.04 K/uL (0-0.2); Basophils % (auto) 0.3 %; Eosinophils # (auto) 0.11 K/uL (0-0.50); Eosinophils % (auto) 0.9 %; Hematocrit (blood only) 35.3 % (42.0-52.0); Hemoglobin 11.7 g/dl (14.0-18.0); Immature Granulocytes # (auto) 0.08 K/uL (0.01-0.20); Immature Granulocytes % (auto) 0.6 %; Lymphocytes # (auto) 2.52 K/uL (1.2-3.4); Lymphocytes % (auto) 19.7 %; Mean Corpuscular Hemoglobin 31.3 pg (25.0-34.0); Mean Corpuscular Hgb Conc 33.1 g/dL (32.0-36.0); Mean Corpuscular Volume 94.4 fL (80.0-100.0); Mean Platelet Volume 9.9 fL (9.4-12.4); Monocytes # (auto) 0.99 K/uL (0.11-0.59); Monocytes % (auto) 7.7 %; Neutrophils # (auto) 9.08 K/uL (1.40-6.50); Neutrophils % (auto) 70.8 %; Platelet Count 224 K/uL (130-400); RDW Coefficient of Variation 13.2 % (11.5-14.5); RDW Standard Deviation 45.2 fL (36.4-46.3); Red Blood Count 3.74 M/uL (4.70-6.10); White Blood Count 12.82 K/ul (4.8-10.8)
[2022-05-10 08:05] LABS: BUN Creatinine Ratio 13.3 (10-20); Calcium 8.8 mg/dl (8.5-10.1); Creatinine Clr Calc Pharmacy 130.7 ml/min; Est GFR (Non-African American) 98.4 ml/min; Potassium 4.4 mmol/L (3.5-5.1)
[2022-05-10] MEDS: oxyCODONE HCL IR 5 MG TAB (IMMEDIATE RELEASE) PO PRN ×2 (08:13→12:35)
[2022-05-10] MEDS: LOSARTAN POTASSIUM 50 MG TAB PO SCH (08:19)
[2022-05-10] MEDS: GABAPENTIN 100 MG CAP PO SCH (08:19)
[2022-05-10] MEDS: FAMOTIDINE 20 MG TAB PO SCH (08:19)
[2022-05-10] MEDS: DOCUSATE SODIUM 100 MG CAP PO SCH (08:19)
[2022-05-10] MEDS: PARoxetine HCL 20 MG TAB PO SCH (08:20)
[2022-05-10] MEDS: METOPROLOL SUCC 25MG EXT REL TAB PO SCH (08:20)
[2022-05-10] MEDS: INSULIN ASPART PER UNIT SC SCH (09:07)
[2022-05-10] MEDS: LANTUS PER UNIT CHARGE SQ SCH (09:09)
--- NOTE | 2022-05-10 10:55 | Discharge Summary ---
Date of Service May 10, 2022 Principal Diagnosis Postoperative lumbar hematoma Discharge Data Allergies Allergy/AdvReac Type Severity Reaction Status Date / Time shellfish derived Allergy Severe Throat Verified 05/05/22 12:08 swelling tramadol Allergy Mild Hives, Verified 05/05/22 12:08 dizziness, nausea acetaminophen AdvReac Mild Upset Verified 05/05/22 12:08 stomach Consultations 05/05/22 17:52 ED Decision to Admit Stat 05/06/22 08:26 Consult Orthopedic Surgery Routine Procedures Performed Operation Date: 05/08/22 14:15 Actual Procedures p Irrigation debridement of lumbar hematoma(Right) - Mynor Purcell DO Ordered Studies 05/05/22 10:51 MR lumbar spine wo con Stat 05/07/22 10:04 CT lumbar spine wo con Urgent Hospital Course (1) Postoperative seroma: Patient was admitted with marked decline in status with worsening back and bilateral leg pain. Imaging demonstrated evidence of postoperative hematoma seroma in the lumbar region. Subsequently underwent irrigation debridement of the seromas and had 2 drains placed. He tolerated procedure well was up and ambulating postop day #1 and 2. Tolerating physical therapy and subsequent discharge home. Discharge orders instructions can be found on the chart for further review. Total Time Total Time Spent Total Time Spent (In Minutes): 20 minutes Discharge Plan Discharge Items Patient Disposition: Home - Self-Care Reason For Visit: POST-OPERATIVE BACK PAIN Discharge Diagnosis: Postop lumbar hematoma Activity: As commented below Non-emergency contact: Primary Care Provider Call non-emergency contact if: you have any medication questions Follow-up/Referrals: Roberto Esposito [Primary Care Provider] - Diet: Regular Addtl Attending Provider Instructions: ACTIVITY RECOMMENDATIONS: SELF CARE INSTRUCTIONS AFTER THORACIC/LUMBAR FUSIONS 1. You may walk to your tolerance. It is good exercise for your legs and back. Expect some back and intermittent leg aches and pains. 2. You may perform "counter-top" level activities (make a sandwich, maricel with a project, etc.). 3. No bending or lifting of more than 10 pounds or back twisting of any nature (roll like a log when turning in bed). 4. You may ride in a car for 20-30 minutes at a time. No driving until after your first visit with your doctor. 5. Frequent changes of position and restricting sitting to 30 minutes at a time will help limit the amount of back spasms and stiffness you may experience. 6. You may discontinue the use of ambulatory aids (cane, crutches, etc.) once your strength and confidence allow. 7. You may visual inspector the shower and let water strike your incision when you ar rive home at least once daily. Do not take a tub bath, sit in a hot tub or go into a swimming pool until after your first recheck in the office. SPECIAL CARE INSTRUCTIONS: VERY IMPORTANT TO READ AND REVIEW A. Your surgical incision has been closed with a cosmetic suture under the skin that will dissolve in about 6 weeks. In 14 days, you can use a pair of clean scissors and cut the suture that is left outside of the skin at the ends of your incision. 1. The small skin tapes can be removed 7 days after surgery if they have not fallen off by that point. 2. You may keep the wound open to air as much as possible to promote healing after post-op day number 5 unless told otherwise by your doctor. 3. If you think the wound looks like it is becoming infected (redness or worsening drainage) and/or you are experiencing fever, chill or worsening back pain and muscle spasms, contact the office so that we may evaluate you as soon as possible. B. Complications are uncommon, but please contact us if you have any signs or symptoms of: 1. wound infection (fever higher than 102.5 degrees F, redness, separation of wound, drainage, or increasing pain from the incision) 2. blood clots in legs (pain, swelling, redness and warmth in legs) 3. urinary tract infection (fever higher than 102.5 degrees F, burning upon urination or increased frequency of urination) 4. nerve problems (inability to walk on your toes or heels, numbness, loss of bowel or bladder control) 5. any other symptoms that concern you C. Please call the office at if you have any concerns or questions about your operation or recovery. D. No smoking! Smoking drastically decreases the chance of a solid fusion. E. Do not take any anti-inflammatory medications (Indocin, Advil, Motrin, Aspirin, Naprosyn, etc.) as these may inhibit the chance of a solid fusion. Tylenol is okay to take for pain. MANAGING PAIN AFTER SPINAL SURGERY 1. Narcotic medication is intended for short-term use and will be provided for surgical pain. Surgical pain usually lasts for a period of 4-6 weeks. Narcotic medication includes Percocet, Vicodin, Darvocet, Tylenol #3 or Lortab. 2. Longer-term pain is more appropriately treated with non-narcotic medication such as Tylenol ES. 3. Muscle spasm is not appropriately treated with narcotics. Muscle relaxers such as Soma, Flexeril or Skelaxin can be used along with Tylenol ES. 4. Remember that we all live with some "aches and pains". This is not unusual or uncommon after an injury or as we get older. a. Back pain is expected and may include muscle spasms for 4 to 6 weeks after surgery. The pain should gradually improve. If the pain worsens for no apparent reason, please contact the office. b. Intermittent leg pain may also be experienced and should not be concerned about unless it worsens for no apparent reason. If so, please contact the office. 5. We will provide appropriate medication within the normal guidelines of their prescribed use. We will also be very cautious and aware of potential abuse and extended duration of patients' medication needs. a. Pain medications are for your comfort and to assist with sleep and rest so that the tissue can heal. They are not provided in order to return to normal activity and should not be used through the day. To do so or worsening pain at night can result from ongoing tissue damage and development of tolerance to the prescribed medicine. 6. Please allow 2-3 days to process refills. Prescriptions will not be mailed but must be picked up at the office. FOLLOW UP VISIT: Keep your scheduled follow-up appointment. Any questions, please call the office at . Pending Studies at Discharge: No Stand-Alone Forms: My [employer], Smoking Cessation Medications and DC Order Prescriptions: New oxycodone 5 mg tablet 10 mg PO Q6H PRN (Reason: pain, severe) Qty: 30 0RF Continued oxycodone 10 mg tablet 10 mg PO Q6H PRN (Reason: pain) Qty: 30 0RF losartan [Cozaar] 50 mg Tablet 50 mg PO QAM atorvastatin [Lipitor] 80 mg Tablet 80 mg PO HS famotidine [Pepcid] 20 mg Tablet 20 mg PO BID gabapentin 100 mg Capsule 100 mg PO TID amitriptyline 100 mg Tablet 100 mg PO HS metoprolol succinate [Toprol XL] 25 mg Tablet Extended Release 24 Hr 25 mg PO QAM metformin 1,000 mg Tablet 1,000 mg PO BID melatonin 10 mg Tablet 10 mg PO HS paroxetine HCl [Paxil] 30 mg Tablet 30 mg PO QAM oxycodone 5 mg tablet 5 mg PO Q6H PRN (Reason: pain, severe) Qty: 30 0RF Discharge Orders: Discharge Order (Routine); Ordered 05/10/22 Ordered By: Mynor Purcell Admission Data Admit Date/Time: 05/07/22 12:55 Attending Provider: Usha Bryson Admit Provider: Enrrique Laureano Primary Care Provider: Roberto Esposito Other Providers: Enrrique Laureano ; Mynor Purcell
--- NOTE | 2022-05-10 12:53 | Hospitalist Progress Note ---
Date of Service May 10, 2022 Assessment & Plan (1) Post-operative pain: Plan: -p/w uncontrolled low back pain with radicular pain to the BL LE's and LLE weakness compared to the RLE s/p lumbar decompression and fusion revision L2-S1 on 04/26 -MRI of the lumbar spine was non-diagnostic due to artifact but shows a fluid collection at the surgical site, most likely a seroma -Dr. Purcell was consulted and reviewed the imaging, went for surgical drainage of large hematoma on 05/08. No signs of infection, drains in place -now much improved, pain almost completely resolved. is ambulating independently -no further difficulty with voiding since starting Flomax here-no need to continue on discharge as he was likely having issues due to pain and lumbar hematoma. Has seen Urology who told him he didn't need to take it -continue pain control -tylenol prn, continue oxycodone 10mg prn, flexeril prn -Continue home gabapentin 100 mg PO TID -follow BCxs although no suspicion for infection at this time-no drainage, erythema, fevers, etc -hgb drop slightly since admission from 13 to 11 post-op care as per Dr. Purcell, dc to home today with KAVITA drains in place-to see Ortho in office on Friday (2) Depression: Plan: -Continue Paxil and amitriptyline (3) Hypertension: Plan: -Stable -Continue losartan and metoprolol (4) Hyperlipidemia: Plan: -Continue atorvastatin (5) GERD (gastroesophageal reflux disease): Plan: -Continue famotidine (6) Diabetes mellitus, type 2: Plan: -Held metformin but can restart on discharge -DM II diet Plan Plan DVT proph-SCDs Dispo-dc to home today Admission and Anticipated Discharge Date Admission Date: May 07, 2022 Subjective feelin gmuch better, no CP, SOB. back and leg pain much improved, moving bowels, ambulating around room drains remaining in place for discharge requesting some flexeril for home use prn Physical Exam Constitutional: WD/WN, vitals as above + obese Respiratory: normal respiratory effort, lungs clear to auscultation Cardiovascular: RRR, no murmur, no edema Results & Data Results & Data ([facility]) Vital Signs (Past 12 Hours) Vital Signs Temp Pulse Pulse Pulse Resp BP BP 05/10/22 12:40 37.3 C 79 80 73 18 148/78 H 126/80 05/10/22 12:00 37.3 C 79 18 126/80 05/10/22 08:00 36.5 C 68 18 148/78 H Pulse Ox O2 Del Method 05/10/22 12:40 98 05/10/22 12:00 98 Room Air 05/10/22 08:00 98 Room Air Laboratory Results CBC and BMP reviewed BCxs remain NGTD PG Care Time/CCT Total # of Minutes Spent Total Time Spent with Patient: Total time spent is greater than 50% in coordination of care (as documented) at patient's floor/unit and/or counseling patient: Coding Level of Care Code 35070 SUB INP/OBS CARE 04/03MIN Diagnoses Post-operative pain G89.18 Depression F32.A Hypertension I10 Hyperlipidemia E78.5 GERD (gastroesophageal reflux disease) K21.9 Diabetes mellitus, type 2 E11.9
== END 2022-05-10 13:33 | disposition home or self-care (01) | DRG 909 ==
LOC: 3W 10:26 → ED 10:26 → SUATTDRO 18:19 → 3W 21:38

== ENCOUNTER 2022-05-23 07:33 | Inpatient (IN) ==
[2022-05-23] MEDS ORDERED: SODIUM CHLORIDE 0.9% 1000ML 1,000 ML IV STA (07:59)
[2022-05-23] MEDS ORDERED: ONDANSETRON INJ 2 MG/ML 2 ML VIAL IV STA (07:59)
[2022-05-23] MEDS ORDERED: HYDROmorphone INJ 0.5 MG/0.5 ML SYR IV STA ×2 (07:59→09:24)
--- NOTE | 2022-05-23 08:13 | Emergency Department Note ---
ED Provider Note History of Present Illness Chief Complaint: Hip Pain Stated Complaint: L HIP PAIN Time Seen by Provider: 05/23/22 07:50 56-year-old male who presents to the emergency department with his with complaint of persistent and worsening lower back pain, now radiating into the left hip. The patient reports that he underwent surgery on 04/26/[address] Purcell. The patient had a postoperative seroma that required additional surgery versus drainage tubes. The reports that the drainage sites have since closed. The patient reports persistent and worsening weakness in his legs. He denies any rodri bladder or bowel incontinence. He initially had pain radiating into both legs postoperatively, but reports that he has minimal pain radiating into the right hip. The reports that he has fallen several times because of the weakness. The patient has been taking Oxy IR 10 mg tablets without any significant relief, currently rating his discomfort a 10 out of 10. The patient reports that he had a scheduled follow-up appointment for today, however that got canceled and rescheduled for next week. Home Medications Medication Instructions Recorded Confirmed Type amitriptyline 100 mg tablet 100 mg PO HS 02/16/19 05/23/22 History atorvastatin 80 mg tablet (Lipitor) 80 mg PO HS 02/16/19 05/23/22 History famotidine 20 mg tablet (Pepcid) 20 mg PO BID 02/16/19 05/23/22 History gabapentin 100 mg capsule 100 mg PO TID 02/16/19 05/23/22 History losartan 50 mg tablet (Cozaar) 50 mg PO QAM 02/16/19 05/23/22 History metoprolol succinate 25 mg 25 mg PO QAM 02/23/19 05/23/22 History tablet,extended release 24 hr (Toprol XL) metformin 1,000 mg tablet 1,000 mg PO BID 02/29/20 05/23/22 History melatonin 10 mg tablet 10 mg PO HS 09/07/21 05/23/22 History oxycodone 10 mg tablet 10 mg PO Q6H PRN pain #30 tabs 10/31/21 05/23/22 Rx paroxetine HCl 30 mg tablet (Paxil) 30 mg PO QAM 04/05/22 05/23/22 History cyclobenzaprine 10 mg tablet 10 mg PO TID PRN muscle spasm #15 05/10/22 05/23/22 Rx tabs Allergies Allergy/AdvReac Type Severity Reaction Status Date / Time shellfish derived Allergy Severe Throat Verified 05/23/22 11:07 swelling tramadol Allergy Mild Hives, Verified 05/23/22 11:07 dizziness, nausea acetaminophen AdvReac Mild Upset Verified 05/23/22 11:07 stomach Past Med/Surg History Medical History CAD (coronary artery disease) 2007 x 2 stents (LAD, Diagonal) 2012 (PADMINI D1) cardiac stents x3 total (most recent stent 2011) No recent issues Degenerative disc disease s/p cervical fusion Depression Diabetes mellitus, type 2 NIDDM GERD (gastroesophageal reflux disease) controlled, stable per pt Hyperlipidemia Hypertension controlled, stable per pt Myocardial Infarction 2012 > stents SIDDHARTHA (obstructive sleep apnea) pt states the last sleep study was negative Surgical History Difficult intubation 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 *Difficult airway* per anesthesia record comments. No issues noted per post-op anesthesia progress note. Fusion of spine ACDF C6-C7, C5 corpectomy: 08/08/10: MAC#4, ETT 7.5 at [facility] History of cardiac cath 2007 x 2 stents (LAD, Diagonal) 2011 (PADMINI D1) History of colonoscopy History of esophageal dilatation History of esophagogastroduodenoscopy (EGD) History of hip surgery right hip (as a child) History of lumbar fusion 10/04/2020: elective glidescope 3. ETT 8.0. 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 *Difficult airway* per anesthesia record comments. No issues noted per post-op anesthesia progress note. History of tooth extraction History of total knee replacement right knee S/P arthroscopy of right shoulder 03/18/19. 02/29/20. LMA#5. Family History Father Family history of diabetes mellitus Other No family history of adverse response to anesthesia Social History Smoking Status: Never smoker Tobacco Type: Cigarettes Second Hand Exposure: No; Hx Alcohol Use: No Hx Substance Use: No Preferred Language: Beninese Communication Ability: Effective Ticket Writer Required: No Beliefs That Will Affect Care: None marital status: Current Living Situation: Spouse Other Information That Helps Us Care for You: No Feels Safe at Home: No Is there a partner from a previous relationship who is making you feel unsafe now?: No Any Concerns about Your Family Situation: No Would You Like to Speak to Someone About Your Situation: No Safety Concerns: Feels Safe At This Time Assistive Devices: None Physical Exam Vital Signs Vital Signs - 24 hr 05/23/22 07:43 05/23/22 08:36 05/23/22 08:32 Temperature 36.7 C Temperature Source Temporal Artery Scan Pulse Rate 116 H 106 H 105 H Pulse Rate from SpO2 Sensor 104 H Respiratory Rate 20 17 Respiratory Effort / Characteristics Non-Labored Spontaneous Respiratory Depth Normal Respiratory Pattern Regular Blood Pressure 131/78 Blood Pressure Mean 95 Pulse Oximetry 99 95 Oxygen Delivery Method Room Air Room Air Sepsis Recent Fever Within 48 Hours No Sepsis New/Unexplained Change in Mental Status No Sepsis Action Taken by Nursing No Action Required 05/23/22 08:40 05/23/22 08:50 05/23/22 09:00 Temperature Temperature Source Pulse Rate 104 H 104 H 104 H Pulse Rate from SpO2 Sensor 105 H 103 H 105 H Respiratory Rate 15 19 36 H Respiratory Effort / Characteristics Respiratory Depth Respiratory Pattern Blood Pressure 141/90 H Blood Pressure Mean 107 Pulse Oximetry 94 93 90 Oxygen Delivery Method Room Air Room Air Room Air Sepsis Recent Fever Within 48 Hours Sepsis New/Unexplained Change in Mental Status Sepsis Action Taken by Nursing 05/23/22 09:30 05/23/22 10:01 05/23/22 10:30 Temperature Temperature Source Pulse Rate 103 H 96 H Pulse Rate from SpO2 Sensor 102 H 96 H 94 H Respiratory Rate 31 H 12 Respiratory Effort / Characteristics Respiratory Depth Respiratory Pattern Blood Pressure 141/77 H 123/74 122/84 Blood Pressure Mean 98 90 96 Pulse Oximetry 91 95 95 Oxygen Delivery Method Room Air Room Air Room Air Sepsis Recent Fever Within 48 Hours Sepsis New/Unexplained Change in Mental Status Sepsis Action Taken by Nursing 05/23/22 10:40 05/23/22 10:50 05/23/22 11:00 Temperature Temperature Source Pulse Rate Pulse Rate from SpO2 Sensor 93 H 97 H 89 Respiratory Rate Respiratory Effort / Characteristics Respiratory Depth Respiratory Pattern Blood Pressure Blood Pressure Mean Pulse Oximetry 96 96 93 Oxygen Delivery Method Room Air Room Air Room Air Sepsis Recent Fever Within 48 Hours Sepsis New/Unexplained Change in Mental Status Sepsis Action Taken by Nursing 05/23/22 12:50 05/23/22 13:24 05/23/22 13:30 Temperature Temperature Source Pulse Rate 82 82 78 Pulse Rate from SpO2 Sensor 82 77 Respiratory Rate 18 24 Respiratory Effort / Characteristics Respiratory Depth Respiratory Pattern Blood Pressure 130/79 140/74 Blood Pressure Mean 96 96 Pulse Oximetry 97 93 Oxygen Delivery Method Room Air Room Air Sepsis Recent Fever Within 48 Hours Sepsis New/Unexplained Change in Mental Status Sepsis Action Taken by Nursing 05/23/22 14:01 Temperature Temperature Source Pulse Rate 79 Pulse Rate from SpO2 Sensor 79 Respiratory Rate 19 Respiratory Effort / Characteristics Respiratory Depth Respiratory Pattern Blood Pressure 130/66 Blood Pressure Mean 87 Pulse Oximetry 97 Oxygen Delivery Method Room Air Sepsis Recent Fever Within 48 Hours Sepsis New/Unexplained Change in Mental Status Sepsis Action Taken by Nursing CONSTITUTIONAL: Healthy and well nourished. Alert and oriented X 3. Patient appears in moderate discomfort. HEENT: No scleral icterus or conjunctival injection/pallor. NECK: Full active range of motion without discomfort. No nuchal rigidity. RESPIRATORY: Clear to auscultation bilaterally with no wheezing, crackles, rhonchi or stridor. CARDIOVASCULAR: Regular rate and rhythm with no murmurs, rubs or gallops. GASTROINTESTINAL: Bowel sounds present in all quadrants. Patient has minimal lower abdominal tenderness to palpation without rigidity, guarding or rebound. MUSCULOSKELETAL: Examination shows good surgical incision and drainage site healing of the lower lumbar spine. Negative logroll of the left hip. Patient does have discomfort in the left buttock with straight leg raise. Patient has good plantar and dorsiflexion strength of 4 out of 5 which is symmetric bilater ally. Pedal pulses are intact. INTEGUMENTARY: No rash or other significant dermatologic conditions noted. HEMATOLOGIC: No ecchymosis or petechiae. PSYCHIATRIC: Positive affect. NEUROLOGIC: Lower extremity deep tendon reflexes are 2+ and symmetric bilaterally. Lower extremities are also sensory intact. Course Course Patient history and physical exam were performed. Nurses notes were reviewed. Vital signs were reviewed, showing a mild tachycardia 116 bpm. The patient is afebrile. I also reviewed prior medical documentation, including the patient's operative note and postoperative procedure for drainage of the seroma. It is also noted that this is the patient's fourth visit over the past 3 weeks for postoperative complaints. I also queried the [place] Drug Monitoring Prescription Program, showing that the patient has been prescribed oxycodone 135 tablets over the past month for pain control that the patient reports is marginal. At this point, I indicated that he may require repeat MRI study, however I would prefer to ask Dr. Purcell's suggestion prior to ordering it. In the meantime, IV access was established, and labs were drawn. The patient was hydrated with a liter of normal saline, and administered IV Dilaudid and Zofran for pain control. Upon reevaluation approximate 45 minutes later, the patient did report better pain control, however the starting to return. He was administered ad ditional IV Dilaudid. Review of labs shows a hyponatremia with a sodium of 129, as well as bumped LFTs and alkaline phosphatase. Upon further questioning, the patient has increased his Tylenol use over the past few days, but it does not appear that he has taken more than approximately 3000 mg over 24-hour period of time. While discussing these test results with the patient, and likelihood that he would require admission for his hyponatremia, MRI did call the patient for his usual questionnaire. They indicated that they would call report to the nurse so that they know when to administer IV Valium because of patient history of claustrophobia. The patient was also administered IV Decadron and additional dose of IV Dilaudid for his pain control. The case was further discussed with our skilled nursing case manager, who agreed with admission for hyponatremia. Case was then further discussed with the [facility] service, who wanted to wait until MRI results have been completed. I did speak with Cathleen Donaldson PA-C who reports that they know the patient well, and will await MRI results. MRI results are as indicated in the following Medical Decision Making section. I spoke again with Cathleen who indicated that this would be surgical management. The case was then further discussed with Dr. Bryson, [facility]. Please see her and Dr. Purcell's dictations for further treatment and final disposition. Administered Medications Discontinued Medications Dexamethasone Sodium Phosphate (DexamethasonePf 10 Mg/Ml Vial) 10 mg IV NOW ONE Stop: 05/23/22 09:49 Last Admin: 05/23/22 09:55 Dose: 10 mg Documented By: NH Diazepam (Diazepam 5 Mg/Ml Inj 10ml Vial) 10 mg IV NOW STA Stop: 05/23/22 09:25 Last Admin: 05/23/22 11:08 Dose: 10 mg Documented By: NH Hydromorphone HCl (Hydromorphone Inj 0.5 Mg/0.5 Ml Syr) 1 mg IV NOW STA Stop: 05/23/22 08:00 Last Admin: 05/23/22 08:18 Dose: 1 mg Documented By: NH Hydromorphone HCl (Hydromorphone Inj 0.5 Mg/0.5 Ml Syr) 0.5 mg IV NOW STA Stop: 05/23/22 09:25 Last Admin: 05/23/22 09:46 Dose: 0.5 mg Documented By: JUAN Sodium Chloride (Nss 1000ml) 1,000 mls @ 999 mls/hr IV .Q1H1M STA Stop: 05/23/22 08:59 Last Infusion: 05/23/22 09:52 Dose: 0 mls/hr Documented By: Admin: 05/23/22 08:18 Dose: 999 mls/hr Documented By: UJAN Ondansetron HCl (Ondansetron Inj 2 Mg/Ml 2 Ml Vial) 4 mg IV NOW STA Stop: 05/23/22 08:00 Last Admin: 05/23/22 08:18 Dose: 4 mg Documented By: JUAN Medical Decision Making Medical Records Attestation: I reviewed the patient's medical records. Home Medications was personally reviewed by me Laboratory Data Attestation: I reviewed the patient's lab results. 05/23/22 08:27 05/23/22 08:27 Lab Results 05/23/22 05/23/22 05/23/22 Range/Units 08:27 08:27 08:27 WBC 11.43 H (4.8-10.8) K/ul RBC 4.38 L (4.70-6.10) M/uL Hgb 13.4 L (14.0-18.0) g/dl Hct 38.8 L (42.0-52.0) % MCV 88.6 (80.0-100.0) fL MCH 30.6 (25.0-34.0) pg MCHC 34.5 (32.0-36.0) g/dL RDW Std Deviation 42.3 (36.4-46.3) fL RDW Coeff of Padmini 13.0 (11.5-14.5) % Plt Count 292 (130-400) K/uL MPV 10.3 (9.4-12.4) fL Immature Gran % (Auto) 0.8 % Neut % (Auto) 75.8 % Lymph % (Auto) 7.1 % [place] % (Auto) 15.7 % Eos % (Auto) 0.3 % Baso % (Auto) 0.3 % Neut # (Auto) 8.66 H (1.40-6.50) K/uL Lymph # (Auto) 0.81 L (1.2-3.4) K/uL [place] # (Auto) 1.80 H (0.11-0.59) K/uL Eos # (Auto) 0.03 (0-0.50) K/uL Baso # (Auto) 0.04 (0-0.2) K/uL Immature Gran # (Auto) 0.09 (0.01-0.20) K/uL Sodium 129 L (136-145) mmol/L Potassium 4.0 (3.5-5.1) mmol/L Chloride 94 L (98-107) mmol/L Carbon Dioxide 23 (21-32) mmol/L Anion Gap 12 H (3-11) BUN 14 (6-23) mg/dl Creatinine 0.83 (0.6-1.4) mg/dl Est Cr Clr Drug Dosing Not Reportable Est GFR ( Amer) 114.0 ml/min Est GFR (Non-Af Amer) 98.4 ml/min BUN/Creatinine Ratio 16.9 (10-20) Glucose 153 H (70-99(Fasting)) mg/dl Calcium 9.0 (8.5-10.1) mg/dl Total Bilirubin 0.9 (0.2-1.0) mg/dl AST 77 H (13-39) U/L ALT 63 H (7-52) U/L Alkaline Phosphatase 168 H (34-104) U/L Total Protein 7.3 (6.0-8.3) gm/dl Albumin 3.8 (3.4-5.0) gm/dl Globulin 3.5 (2.5-4.0) gm/dl Albumin/Globulin Ratio 1.1 (0.9-2) Lipase 27 (11-82) U/L Acetaminophen < 3 L (10-30) ug/ml Imaging Data Attestation: I personally reviewed and interpreted this imaging study as follows: My Impression: My interpretation of a noncontrast MRI of the lumbar spine does not show any hardware loosening. The patient does appear to have a small epidural fluid collection at L2-3, with underlying mild disc bulge resulting in moderate central canal stenosis. Radiologist also makes mention of a postlaminectomy bed fluid collection, favoring a seroma. Radiology report was also reviewed with concurrence. Radiologist's Impression: Lumbar Spine MRI 05/23/22 09:24 MRI OF THE LUMBAR SPINE WITHOUT CONTRAST CLINICAL HISTORY: Persistent post-op pain, post-op seroma, left radiculopathy. COMPARISON STUDY: Lumbar spine MRI May 05, [address] May 07, 2022. TECHNIQUE: Utilizing a 1.5 Lise magnet and dedicated coil, multiplanar, multiecho imaging of the lumbar spine was performed without IV contrast. FINDINGS: For purposes of numbering on this exam, the L5-S1 disc space is assigned to axial image 30 of 33. Alignment of the lumbar spine is anatomic. Vertebral body heights are maintained. There are postoperative findings consistent with L3-L4, L4-L5 and L5-S1 discectomies with a posterior decompression and bilateral pedicle screw fusion from L3 through S1. Fluid adjacent to the surgical hardware is again noted. Increased T2 signal within the operative bed, involving the paraspinal musculature is again noted. There is a 6.9 x 2.9 x 2.1 cm laminectomy bed fluid collection. This is nonspecific in the early postoperative setting. Although this exam is compromised by artifact, the operative bed fluid nasra ection shown on MRI of May 05, 2022 has likely decreased in size. Note is made of a probable intracanalicular collection within the posterior aspect of the canal at the L2-L3 level that measures 2.8 x 0.5 cm. This collection, superimposed upon a disc bulge result in moderate central canal stenosis. Patent AP diameter of the canal is 4.4 mm. Otherwise, there is no significant central canal stenosis. Neural foramen are suboptimally assessed by artifact. There is mild to moderate multilevel neural foraminal stenosis. No severe neural foraminal stenosis is present. No new disc herniations are present. There is no evidence for discitis or osteomyelitis. IMPRESSION: 1. Status post L3-S1 discectomies, posterior decompression and bilateral pedicle screw fusion. 6.9 x 2.9 x 2.1 cm laminectomy bed fluid collection. This favors a seroma in the early postoperative setting however sterility cannot be assessed by MRI. 2. Suspected small posterior epidural fluid collection at the L2-L3 level which measures 2.8 x 0.5 cm. This nonspecific collection, in conjunction with a mild disc bulge, result in moderate central canal stenosis. Otherwise, patent central canal. 3. Mild to moderate multilevel neural foraminal stenosis. 4. Exam compromised by susceptibility artifact from the surgical hardware. ACT 112: Negative or not required by law. Electronically signed by: Maykel Jackson M.D. 05/23/2022 1:11 PM Prescription Drug Monitoring [place] Drug Monitoring Program reviewed and findings noted below (See ED Course for further details, with the patient having filled 135 tablets of oxycodone over the past month.) MDM Narrative See ED course for further details of today's visit. The patient presents with complaint of persistent postoperative pain after undergoing a primary lumbar back surgery, as well as a follow-up surgery for developing seroma that was successfully drained. The patient reports persistent and worsening pain and weakness in the lower extremities. Today's work-up shows elevated LFTs. I was advised by the hospitalist service that the patient does alcohol, and with a normal Tylenol level, I do not suspect Tylenol overdose. MRI does not show any surgical findings at this time. Patient does have a hyponatremia that will require gentle repletion. Impression Acute hyponatremia, Elevated LFTs, Postoperative back pain Discharge Plan Visit Data Chief Complaint: Hip Pain Stated Complaint: L HIP PAIN ED Provider: Agustin Du ED Midlevel Provider: Jim Morton Discharge Problem: Acute hyponatremia, Elevated LFTs, Postoperative back pain Patient Disposition: Admitted As Inpatient Discharge Instructions Interventions: ED Discharge Assessment Last Done: 05/23/22 15:58
[2022-05-23 09:12] LABS: Basophils # (auto) 0.04 K/uL (0-0.2); Basophils % (auto) 0.3 %; Eosinophils # (auto) 0.03 K/uL (0-0.50); Eosinophils % (auto) 0.3 %; Hematocrit (blood only) 38.8 % (42.0-52.0); Hemoglobin 13.4 g/dl (14.0-18.0); Immature Granulocytes # (auto) 0.09 K/uL (0.01-0.20); Immature Granulocytes % (auto) 0.8 %; Lymphocytes # (auto) 0.81 K/uL (1.2-3.4); Lymphocytes % (auto) 7.1 %; Mean Corpuscular Hemoglobin 30.6 pg (25.0-34.0); Mean Corpuscular Hgb Conc 34.5 g/dL (32.0-36.0); Mean Corpuscular Volume 88.6 fL (80.0-100.0); Mean Platelet Volume 10.3 fL (9.4-12.4); Monocytes % (auto) 15.7 %; Neutrophils # (auto) 8.66 K/uL (1.40-6.50); Neutrophils % (auto) 75.8 %; Platelet Count 292 K/uL (130-400); RDW Standard Deviation 42.3 fL (36.4-46.3); Red Blood Count 4.38 M/uL (4.70-6.10); White Blood Count 11.43 K/ul (4.8-10.8)
[2022-05-23 09:30] LABS: Alanine Aminotransferase 63 U/L (7-52); Albumin Globulin Ratio 1.1 (0.9-2); Albumin Level 3.8 gm/dl (3.4-5.0); Alkaline Phosphatase 168 U/L (34-104); Anion Gap 12 (3-11); Aspartate Aminotransferase 77 U/L (13-39); BUN Creatinine Ratio 16.9 (10-20); Bilirubin,Total 0.9 mg/dl (0.2-1.0); Blood Urea Nitrogen 14 mg/dl (6-23); Carbon Dioxide 23 mmol/L (21-32); Chloride 94 mmol/L (98-107); Est GFR (Non-African American) 98.4 ml/min; Globulin 3.5 gm/dl (2.5-4.0); Glucose 153 mg/dl (70-99(Fasting)); Lipase 27 U/L (11-82); Sodium 129 mmol/L (136-145); Total Protein 7.3 gm/dl (6.0-8.3)
[2022-05-23] MEDS ORDERED: dexAMETHasone**PF** 10 MG/ML VIAL IV ONE (09:48)
--- NOTE | 2022-05-23 13:13 | Magnetic Resonance Report ---
MRI OF THE LUMBAR SPINE WITHOUT CONTRAST CLINICAL HISTORY: Persistent post-op pain, post-op seroma, left radiculopathy. COMPARISON STUDY: Lumbar spine MRI May 05, [address] May 07, 2022. TECHNIQUE: Utilizing a 1.5 Lise magnet and dedicated coil, multiplanar, multiecho imaging of the [facility] spine was performed without IV contrast. FINDINGS: For purposes of numbering on this exam, the L5-S1 disc space is assigned to axial image 30 of 33. Ali gnment of the lumbar spine is anatomic. Vertebral body heights are maintained. There are postoperativ e findings consistent with L3-L4, L4-L5 and L5-S1 discectomies with a posterior decompression and alfie ateral pedicle screw fusion from L3 through S1. Fluid adjacent to the surgical hardware is again note d. Increased T2 signal within the operative bed, involving the paraspinal musculature is again noted. There is a 6.9 x 2.9 x 2.1 cm laminectomy bed fluid collection. This is nonspecific in the early pos toperative setting. Although this exam is compromised by artifact, the operative bed fluid collection shown on MRI of May 05, 2022 has likely decreased in size. Note is made of a probable intracana licular collection within the posterior aspect of the canal at the L2-L3 level that measures 2.8 x 0. 5 cm. This collection, superimposed upon a disc bulge result in moderate central canal stenosis. Razo nt AP diameter of the canal is 4.4 mm. Otherwise, there is no significant central canal stenosis. Gunjan ral foramen are suboptimally assessed by artifact. There is mild to moderate multilevel neural forami nal stenosis. No severe neural foraminal stenosis is present. No new disc herniations are present. Th ere is no evidence for discitis or osteomyelitis. IMPRESSION: 1. Status post L3-S1 discectomies, posterior decompression and bilateral pedicle screw fusion. 6.9 x 2.9 x 2.1 cm laminectomy bed fluid collection. This favors a seroma in the early postoperative settin g however sterility cannot be assessed by MRI. 2. Suspected small posterior epidural fluid collection at the L2-L3 level which measures 2.8 x 0.5 cm . This nonspecific collection, in conjunction with a mild disc bulge, result in moderate central krystin l stenosis. Otherwise, patent central canal. 3. Mild to moderate multilevel neural foraminal stenosis. 4. Exam compromised by susceptibility artifact from the surgical hardware. ACT 112: Negative or not required by law. Electronically signed by: Maykel Jackson M.D. 05/23/2022 1:11 PM
--- NOTE | 2022-05-23 14:51 | History & Physical Report ---
Date of Service May 23, 2022 Assessment & Plan (1) Left hip pain: Plan: - Admit to med/surg - Suspect L hip bursitis - just completed a course of oral steroids - Topical Voltaren gel to L hip q6h ordered - PT/OT eval - failed discharge home x2, suspect he needs rehab - Will consult orthopedics for steroid injection to L hip - Continue OxyIR 10mg q6h prn moderate to severe pain, Tylenol can be utilized for mild to moderate pain *acute mod risk (2) Post-op pain: Plan: Post operative back pain s/p lumbar decompression and fusion and seroma evacuation - Resume Oxycodone as indicated above and Flexeril - High suspicion for opioid abuse from multiple providers involved in his care - avoid IV narcotics - Could consider Lidocaine patches - PT/OT and case management consult for rehab consideration (3) Hyponatremia: Plan: - Reviewed CMP - Highly suspicious that this patient is consuming etoh more commonly than is disclosed, but also could be from poor po intake the last 2 days 2/2 pain - 1L of NSS given in ED, will order a second liter of NSS to be given at 125 ml/hr - Repeat CMP in AM *acute mod risk (4) Transaminitis: Plan: - Reviewed CMP - Mild transaminitis - again, suspect could be related to more frequent etoh consumption - Repeat CMP in AM - Obtain Liver ultrasound for completeness *acute mod risk (5) Depression: Plan: - Continue Amitriptyline and Paxil (6) Diabetes mellitus, type 2: Plan: - Resume Metformin 1000mg BID - Carb consistent diet - Accuchecks AC and HS - Add coverage if BSG >180 (7) Hypertension: Plan: - Currently controlled - Continue Losartan and Metoprolol Succinate Plan Above plan of care has been d/w Dr. Usha Bryson. Further orders will be implemented as warranted. History of Present Illness Chief Complaint: L hip and back pain Primary Care Provider: Roberto Esposito Kareem Guan is a 56 yo WM who is known to our group from multiple recent admissions to this facility. He underwent lumbar decompression and fusion by Dr. Purcell on 04/25. He was discharged in stable condition home. Since that time, he presented back to the hospital on 05/05 due to uncontrolled back pain with findings on MRI suggestive of a post operative seroma. Additionally, the patient disclosed that they were at a [employer] consuming alcoholic beverages when he sustained a fall which worsened his back pain and prompted him to seek care in the ER. He was admitted to the hospital and underwent evacuation of the seroma by Dr. Purcell on 05/08. He returned home on 05/10. Since then, the patient and his note persistent back pain and now with more pronounced left hip pain. He c/o numbness and tingling down both legs with L leg numbness being worse than left. He recently completed a short burst of steroids as an outpatient. In addition, he notes that he is out of Oxycodone of which he had been told to increase by his orthopedic surgeon. His notes that he has fallen a few times since he left the hospital and that one of the times he fell outside he was unable to get up on his own. He denies fever, cough, gu symptoms, loss of bowel or bladder control or saddle anesthesias. In the ER today, he underwent a repeat MRI which was reviewed by Dr. Purcell. He did not feel he warranted any surgical intervention for the findings. In addition, he was noted to have mildly elevated LFTs and a sodium of 129. Patient denies drinking alcohol consistently, notes that he only drinks "a couple of beers each month." He was medicated with two doses of Dilaudid in ED, one liter of NSS, as well as Zofran and Decadron. He has been referred to the hospitalist service for admission for ongoing evaluation and treatment. Allergies Allergy/AdvReac Type Severity Reaction Status Date / Time shellfish derived Allergy Severe Throat Verified 05/23/22 11:07 swelling tramadol Allergy Mild Hives, Verified 05/23/22 11:07 dizziness, nausea acetaminophen AdvReac Mild Upset Verified 05/23/22 11:07 stomach Home Medications Medication Instructions Recorded Confirmed Type amitriptyline 100 mg tablet 100 mg PO HS 02/16/19 05/23/22 History atorvastatin 80 mg tablet (Lipitor) 80 mg PO HS 02/16/19 05/23/22 History famotidine 20 mg tablet (Pepcid) 20 mg PO BID 02/16/19 05/23/22 History gabapentin 100 mg capsule 100 mg PO TID 02/16/19 05/23/22 History losartan 50 mg tablet (Cozaar) 50 mg PO QAM 02/16/19 05/23/22 History metoprolol succinate 25 mg 25 mg PO QAM 02/23/19 05/23/22 History tablet,extended release 24 hr (Toprol XL) metformin 1,000 mg tablet 1,000 mg PO BID 02/29/20 05/23/22 History melatonin 10 mg tablet 10 mg PO HS 09/07/21 05/23/22 History oxycodone 10 mg tablet 10 mg PO Q6H PRN pain #30 tabs 10/31/21 05/23/22 Rx paroxetine HCl 30 mg tablet (Paxil) 30 mg PO QAM 04/05/22 05/23/22 History cyclobenzaprine 10 mg tablet 10 mg PO TID PRN muscle spasm #15 05/10/22 05/23/22 Rx tabs Past Med/Surg History Medical History CAD (coronary artery disease) 2007 x 2 stents (LAD, Diagonal) 2011 (PADMINI D1) cardiac stents x3 total (most recent stent 2011) No recent issues Degenerative disc disease s/p cervical fusion Depression Diabetes mellitus, type 2 NIDDM GERD (gastroesophageal reflux disease) controlled, stable per pt Hyperlipidemia Hypertension controlled, stable per pt Myocardial Infarction 2012 > stents SIDDHARTHA (obstructive sleep apnea) pt states the last sleep study was negative Surgical History Difficult intubation Right reverse total shoulder replacement (10/08/21): Glidescope#3, ETT 7.5 + PNB at [facility]. *Difficult airway* per anesthesia record comments. No issues noted per post-op anesthesia progress note. Fusion of spine ACDF C6-C7, C5 corpectomy: 08/08/10: MAC#4, ETT 7.5 at [facility] History of cardiac cath 2007 x 2 stents (LAD, Diagonal) 2011 (PADMINI D1) History of colonoscopy History of esophageal dilatation History of esophagogastroduodenoscopy (EGD) History of hip surgery right hip (as a child) History of lumbar fusion 10/04/2020: elective glidescope 3. ETT 8.0. History of repair of rotator cuff right History of reverse total replacement of right shoulder joint Right reverse total shoulder replacement (10/08/21): Glidescope#3, ETT 7.5 + PNB at [facility]. *Difficult airway* per anesthesia record comments. No issues noted per post-op anesthesia progress note. History of tooth extraction History of total knee replacement right knee S/P arthroscopy of right shoulder 03/18/19. 02/29/20. LMA#5. Family History Father Family history of diabetes mellitus Other No family history of adverse response to anesthesia Social History Smoking Status: Never smoker Tobacco Type: Cigarettes Second Hand Exposure: No; Hx Alcohol Use: No Hx Substance Use: No Preferred Language: Nepali Communication Ability: Effective Pupil Personnel Worker Required: No Beliefs That Will Affect Care: None marital status: Current Living Situation: Spouse Other Information That Helps Us Care for You: No Feels Safe at Home: No Is there a partner from a previous relationship who is making you feel unsafe now?: No Any Concerns about Your Family Situation: No Would You Like to Speak to Someone About Your Situation: No Safety Concerns: Feels Safe At This Time Assistive Devices: None Physical Exam Physical Exam: GENERAL: 56 yo Well-developed, well-nourished WM. NAD. LUNGS: Clear to auscultation bilaterally. No W/R/R. CARDIOVASCULAR: Regular rate and rhythm. EXTREMITIES: No edema. Marked tenderness to palpation of L hip at greater trochanter. NEUROLOGIC: A&O x3. Decreased sensation to LLE as compared to RLE. Results & Data Results & Data Vital Signs (Past 12 Hours) Vital Signs Temp Pulse Resp BP Pulse Ox O2 Del Method 05/23/22 14:01 79 19 130/66 97 Room Air 05/23/22 13:30 78 24 140/74 93 Room Air 05/23/22 13:24 82 05/23/22 12:50 82 18 130/79 97 Room Air 05/23/22 11:00 93 Room Air 05/23/22 10:50 96 Room Air 05/23/22 10:40 96 Room Air 05/23/22 10:30 122/84 95 Room Air 05/23/22 10:01 96 H 12 123/74 95 Room Air 05/23/22 09:30 103 H 31 H 141/77 H 91 Room Air 05/23/22 09:00 104 H 36 H 141/90 H 90 Room Air 05/23/22 08:50 104 H 19 93 Room Air 05/23/22 08:40 104 H 15 94 Room Air 05/23/22 08:32 105 H 17 95 Room Air 05/23/22 08:36 106 H 05/23/22 07:43 36.7 C 116 H 20 131/78 99 Room Air Laboratory Results 05/23/22 08:27 05/23/22 08:27 Diagnostic Findings Lumbar Spine MRI 05/23/22 09:24 MRI OF THE LUMBAR SPINE WITHOUT CONTRAST CLINICAL HISTORY: Persistent post-op pain, post-op seroma, left radiculopathy. COMPARISON STUDY: Lumbar spine MRI May 05, [address] May 07, 2022. TECHNIQUE: Utilizing a 1.5 Lise magnet and dedicated coil, multiplanar, multiecho imaging of the lumbar spine was performed without IV contrast. FINDINGS: For purposes of numbering on this exam, the L5-S1 disc space is assigned to axial image 30 of 33. Alignment of the lumbar spine is anatomic. Vertebral body heights are maintained. There are postoperative findings consistent with L3-L4, L4-L5 and L5-S1 discectomies with a posterior decompression and bilateral pedicle screw fusion from L3 through S1. Fluid adjacent to the surgical hardware is again noted. Increased T2 signal within the operative bed, involving the par aspinal musculature is again noted. There is a 6.9 x 2.9 x 2.1 cm laminectomy bed fluid collection. This is nonspecific in the early postoperative setting. Although this exam is compromised by artifact, the operative bed fluid collection shown on MRI of May 05, 2022 has likely decreased in size. Note is made of a probable intracanalicular collection within the posterior aspect of the canal at the L2-L3 level that measures 2.8 x 0.5 cm. This collection, superimposed upon a disc bulge result in moderate central canal stenosis. Patent AP diameter of the canal is 4.4 mm. Otherwise, there is no significant central canal stenosis. Neural foramen are suboptimally assessed by artifact. There is mild to moderate multilevel neural foraminal stenosis. No severe neural foraminal stenosis is present. No new disc herniations are present. There is no evidence for discitis or osteomyelitis. IMPRESSION: 1. Status post L3-S1 discectomies, posterior decompression and bilateral pedicle screw fusion. 6.9 x 2.9 x 2.1 cm laminectomy bed fluid collection. This favors a seroma in the early postoperative setting however sterility cannot be assessed by MRI. 2. Suspected small posterior epidural fluid collection at the L2-L3 level which measures 2.8 x 0.5 cm. This nonspecific collection, in conjunction with a mild disc bulge, result in moderate central canal stenosis. Otherwise, patent central canal. 3. Mild to moderate multilevel neural foraminal stenosis. 4. Exam compromised by susceptibility artifact from the surgical hardware. ACT 112: Negative or not required by law. Electronically signed by: Maykel Jackson M.D. 05/23/2022 1:11 PM Supervising Physician Co-Signing Physician Notes PA Supervision Note: I personally saw and examined the patient. I verified all melgar points and agree with HANNAH Byrnes with the following exceptions and/or additions: S-Pt is a 56 yo male known to me from recent hospitalization for post-op lower back pain from seroma s/p drainage. He presents today with ongoing left hip pain that he say shas been present since before his back surgery. He has been getting oxycodone consistently as an outpatient without much relief. He continues to have weakness in bilat lower extremities causing him to have falls. Pain is directly over left hip and hurts worse with laying on that side and with sitting with hips in flexed position as well as with any touching of the lateral hip. Has ongoing tingling down bilat LEs which is the same as he reports previous. LFTs were elevated on admission-He has only taken tylenol a couple of times. Denies any EtOH use at all since last admission. He denies any fevers/chills, no headaches or lightheadedness. Had some nausea this AM but no vomiting. No bowel or bladder issues. Reports very poor po intake the last 2 days due to pain. I discussed his care with the Ortho Spine PA, Cathleen Donaldson. O- Vitals reviewed Gen: [AAOx3, NAD] HEENT: [anicteric sclerae, EOMI] CV: [RRR no mgr nl S1S2] Pulm: [CTAB no wcr] Abd: [+BS soft NT ND no masses or hernias] Ext: [no edema, 2+ DP pulses, Left hip with +TTP over greater trochanter, no erythema] Skin: [no rashes, warm/dry, lower back incision intact, no erythema or drainge] Neuro: [full strength throughout] Labs to include CBC, CMP, and Rads, reviewed A/P-56 yo male here with ongoing severe left hip pain, likely greater trochanteric bursitis. ALso with hyponatremia and elevated LFTs -left hip pain-trial of voltaren gel topically and consult Ortho Spine for continuity of care and Ortho general to see about hip injection -hyponatremia-suspect from dehydration, poor po intake, and possibly SIADH from pain--> give 1 L NS, follow BMP in AM -elevated LFTs-no abd pain or tenderness. Not likely med side effect. Denies recent EtOH use but could be possible. Could be from recent viral infection although denies symptoms of this. Check liver US, follow LFTs in AM PG Care Time/CCT Total # of Minutes Spent Total Time Spent with Patient: Total time spent is greater than 50% in coordination of care (as documented) at patient's floor/unit and/or counseling patient: Coding Level of Care Code 66169 INT INP/OBS CARE 375MIN Diagnoses Left hip pain M25.552 Post-op pain G89.18 Hyponatremia E87.1 Transaminitis R74.01 Depression F32.A Diabetes mellitus, type 2 E11.9 Hypertension I10
[2022-05-23] MEDS ORDERED: MAGNESIUM HYDROXIDE SUSP 30 ML UDC PO PRN (16:33)
[2022-05-23] MEDS ORDERED: DEXTROSE 50% 50 ML SYRINGE IV PRN (16:33)
[2022-05-23] MEDS ORDERED: CYCLOBENZAPRINE HCL 10 MG TAB PO PRN (16:33)
[2022-05-23] MEDS ORDERED: POLYETHYLENE (MIRALAX) 17 GM PACK PO PRN (16:33)
[2022-05-23] MEDS ORDERED: GLUCAGON FOR INJ 1 MG VIAL SQ PRN (16:33)
[2022-05-23] MEDS ORDERED: ONDANSETRON INJ 2 MG/ML 2 ML VIAL IV PRN (16:33)
[2022-05-23] MEDS ORDERED: CARBOHYDRATES FOR HYPOGLYCEMIA PO PRN ×2 (16:33→17:37)
[2022-05-23] MEDS ORDERED: GLUCOSE 10 TAB/TUBE PO PRN (16:33)
[2022-05-23] MEDS ORDERED: ALUMINUM/MAGNESIUM SUSP 30 ML UDC PO PRN (16:33)
[2022-05-23] MEDS ORDERED: GLUCOSE 40% GEL 15 GM TUBE PO PRN (16:33)
[2022-05-23] MEDS ORDERED: SODIUM CHLORIDE 0.9% 1000ML 1,000 ML IV SCH (16:33)
[2022-05-23] MEDS ORDERED: ACETAMINOPHEN 325 MG TAB PO PRN (16:33)
--- NOTE | 2022-05-23 16:56 | Ultrasound Report ---
ABDOMINAL ULTRASOUND, RIGHT UPPER QUADRANT HISTORY: transaminitis. COMPARISON: Outside hospital abdomen and pelvis CT 05/04/2021. Abdominal ultrasound 03/27/2017. FINDINGS: Pancreas: The pancreatic head and tail are obscured by overlying bowel gas. The remaining portions of the pancreas are within normal limits. Liver: The liver is echogenic consistent with fatty change. 16 cm in length. No hepatic masses. Gallbladder: The gallbladder is contracted. This results in suboptimal evaluation. Borderline gallbla dder wall thickening is likely due to the contracted gallbladder. No gallstones. Hypoechoic focus bet ween the gallbladder wall and liver surface favors trace fluid. CBD: 4 mm. Right kidney: No hydronephrosis. IMPRESSION: 1. Contracted gallbladder resulting in suboptimal evaluation. This likely accounts for the borderline gallbladder wall thickening. 2. No gallstones. 3. Hepatic steatosis. 4. Small hypoechoic focus located between the gallbladder and liver may represent trace fluid. ACT 112: Negative or not required by law. Electronically signed by: Walt Luna M.D. 05/23/2022 4:54 PM
[2022-05-23] MEDS: oxyCODONE HCL IR 5 MG TAB (IMMEDIATE RELEASE) PO PRN ×2 (17:03→23:01)
[2022-05-23 17:39] LABS: Appearance Urine Clear (Clear); Bacteria Urine Automated Negative (Negative); Bilirubin Urine Negative (Negative); Blood Urine Negative (Negative); Color Urine Orange; Glucose Urine UA Trace (Negative); Ketones Urine Trace (Negative); Leukocyte Esterase Urine Negative (Negative); Nitrite Urine Negative (Negative); Protein Urine Trace (Negative); RBC Urine Automated 0-4 /hpf (0-4); Specific Gravity Urine 1.019 (1.000-1.030); Urobilinogen Urine Negative (Negative)
[2022-05-23] MEDS: DICLOFENAC SOD 1% GEL 100 GM TUBE EXT SCH ×2 (18:18→23:56)
[2022-05-23] MEDS: INSULIN ASPART PER UNIT CHARGE SC SCH ×2 (18:18→20:41)
[2022-05-23] MEDS: metFORMIN HCL 500 MG TAB PO SCH (18:19)
[2022-05-23] MEDS: FAMOTIDINE 20 MG TAB PO SCH (20:02)
[2022-05-23] MEDS: AMITRIPTYLINE HCL 100 MG TAB PO SCH (20:03)
[2022-05-23] MEDS: ATORVASTATIN 40 MG TAB PO SCH (20:03)
[2022-05-23] MEDS: GABAPENTIN 100 MG CAP PO SCH (20:04)
[2022-05-23] MEDS: MELATONIN 3 MG TAB PO SCH (23:01)
[2022-05-24] MEDS: DICLOFENAC SOD 1% GEL 100 GM TUBE EXT SCH ×4 (06:17→23:02)
[2022-05-24 06:29] LABS: Basophils # (auto) 0.01 K/uL (0-0.2); Basophils % (auto) 0.1 %; Hemoglobin 12.1 g/dl (14.0-18.0); Immature Granulocytes # (auto) 0.11 K/uL (0.01-0.20); Immature Granulocytes % (auto) 0.9 %; Lymphocytes # (auto) 0.91 K/uL (1.2-3.4); Lymphocytes % (auto) 7.6 %; Mean Corpuscular Hemoglobin 30.6 pg (25.0-34.0); Mean Corpuscular Hgb Conc 33.6 g/dL (32.0-36.0); Mean Corpuscular Volume 90.9 fL (80.0-100.0); Mean Platelet Volume 10.7 fL (9.4-12.4); Monocytes % (auto) 6.7 %; Neutrophils % (auto) 84.7 %; Platelet Count 250 K/uL (130-400); RDW Coefficient of Variation 12.8 % (11.5-14.5); RDW Standard Deviation 42.6 fL (36.4-46.3); Red Blood Count 3.96 M/uL (4.70-6.10); White Blood Count 11.93 K/ul (4.8-10.8)
[2022-05-24 06:47] LABS: Est GFR (African American) 124.5 ml/min; Potassium 4.3 mmol/L (3.5-5.1)
[2022-05-24 06:48] LABS: Albumin Globulin Ratio 0.9 (0.9-2); Albumin Level 3.3 gm/dl (3.4-5.0); BUN Creatinine Ratio 22.4 (10-20); Bilirubin,Total 0.5 mg/dl (0.2-1.0); Creatinine Clr Calc Pharmacy 156.7 ml/min; Est GFR (Non-African American) 107.4 ml/min; Globulin 3.5 gm/dl (2.5-4.0); Magnesium 2.1 mg/dl (1.7-2.4); Total Protein 6.8 gm/dl (6.0-8.3)
[2022-05-24] MEDS: PARoxetine HCL 20 MG TAB PO SCH (07:45)
[2022-05-24] MEDS: METOPROLOL SUCC 25MG EXT REL TAB PO SCH (07:45)
[2022-05-24] MEDS: metFORMIN HCL 500 MG TAB PO SCH ×2 (07:45→17:39)
[2022-05-24] MEDS: oxyCODONE HCL IR 5 MG TAB (IMMEDIATE RELEASE) PO PRN ×3 (07:45→19:57)
[2022-05-24] MEDS: FAMOTIDINE 20 MG TAB PO SCH ×2 (07:46→21:14)
[2022-05-24] MEDS: GABAPENTIN 100 MG CAP PO SCH ×3 (07:46→21:14)
[2022-05-24] MEDS: LOSARTAN POTASSIUM 50 MG TAB PO SCH (07:46)
--- NOTE | 2022-05-24 08:05 | Hospitalist Progress Note ---
Date of Service May 24, 2022 Assessment & Plan (1) Left hip pain: Plan: Pt had a recent hospitalization for post-op lower back pain from seroma s/p drainage. He presented yesterday with ongoing left hip pain that he states has been present since before his back surgery. He has been getting oxycodone consistently as an outpatient without much relief. He continues to have weakness in bilat lower extremities causing him to have falls. Today he complains to me that his left hip pain is mostly in his buttocks and posterior lateral hip. Has ongoing tingling down bilat LEs which is the same as he reports previous (patient has poor controlled DM and likely has neuropathy) LFTs were elevated on admission-He has only taken tylenol a couple of times. Patient is vague about the amount of alcohol he drinks. - Admitted to med/surg - Suspect possible L hip sciatica pain/trochanteric bursitis - just completed a course of oral steroids - Topical Voltaren gel to L hip q6h ordered - Kpad to left hip - Added Lidoderm patch - Continue PT/OT - Consulted orthopedics ordered Left hip Xray - No acute fracture or dislocation - Consulted ortho/spine ordered Lidoderm patch and recommended possible pain management - Continue OxyIR 10mg q6h prn moderate to severe pain, Tylenol can be utilized for mild to moderate pain - Possible deep tissue manipulation/ trochanteric injection (2) Post-op pain: Plan: Post operative back pain s/p lumbar decompression and fusion and seroma evacuation - Resume Oxycodone as indicated above and Flexeril - High suspicion for opioid abuse from multiple providers involved in his care - avoid IV narcotics - Added Lidoderm patch and Kpad - PT/OT and case management consult for rehab consideration (3) Hyponatremia: Plan: - Reviewed CMP Na improved 133 (129) - Highly suspicious that this patient is consuming etoh more commonly than is disclosed, but also could be from poor po intake the last 2 days 2/2 pain - 1L of NSS given in ED, will order a second liter of NSS to be given at 125 ml/hr - Repeat CMP in AM (4) Transaminitis: Plan: - Reviewed CMP - Mild transaminitis - U/S with hepatic steatosis and also has hx of ETOH overuse (although likely more fatty liver with ALT>AST) - Continue to monitor LFTs - Limit hepatotoxic medications - Also discussion regarding weight loss and decrease Alcohol content to avoid progression to cirrhosis (5) Depression: Plan: - Continue Amitriptyline and Paxil (6) Diabetes mellitus, type 2: Plan: - Resume Metformin 1000mg BID - Carb consistent diet - Accuchecks AC and HS - Add coverage if BSG >180 (7) Hypertension: Plan: - Currently controlled - Continue Losartan and Metoprolol Succinate Plan Above plan of care has been d/w Dr. Aguayo. Admission and Anticipated Discharge Date Admission Date: May 23, 2022 Subjective Patient is awake sitting up in bed in NAD. He states he is still havng left hip pain which he describes as being in his buttocks, not lateral hip as he complained about yesterday in the ER. He denies any urine or bowel incontinence. He denies any recent alcohol use although he told nursing he fell going to the mailbox because he was drinking too much. Review of Systems Constitutional: no fever and no weight loss Respiratory: no cough, no chest congestion and no dyspnea Cardiovascular: no chest pain, no dyspnea and no calf pain Gastrointestinal: no abdominal pain, no nausea, no vomiting and no change in bowel habits Genitourinary: no dysuria, no urinary frequency or no urinary incontinence Musculoskeletal: Pain in left hip/buttocks c/o weakness in legs Integumentary: abrasions bilateral knees and right toe secondary to recent fall Neurologic: c/o paresthesias in feet c/o paresthesias left lateral leg Physical Exam Constitutional: WD/WN, vitals as above Gastrointestinal (Abdomen): Obese, soft and nontender Musculoskeletal: Pain to palpation left trochanteric head Skin: superficial abrasion bilateral knees and right first toe abrasion and scabbed over no discharge Psychiatric: A+Ox3, euthymic affect Results & Data Results & Data Vital Signs (Past 12 Hours) Vital Signs Temp Pulse Pulse Resp BP Pulse Ox O2 Del Method 05/24/22 07:51 36.4 C L 70 18 135/81 96 Room Air 05/24/22 07:41 70 135/81 Laboratory Results Abnormal lab results 05/23/22 05/23/22 05/23/22 Range/Units 08:27 08:27 08:27 WBC 11.43 H (4.8-10.8) K/ul RBC 4.38 L (4.70-6.10) M/uL Hgb 13.4 L (14.0-18.0) g/dl Hct 38.8 L (42.0-52.0) % Neut # (Auto) 8.66 H (1.40-6.50) K/uL Lymph # (Auto) 0.81 L (1.2-3.4) K/uL [place] # (Auto) 1.80 H (0.11-0.59) K/uL Sodium 129 L (136-145) mmol/L Chloride 94 L (98-107) mmol/L Anion Gap 12 H (3-11) BUN/Creatinine Ratio (10-20) Glucose 153 H (70-99(Fasting)) mg/dl POC Glucose (70-99) mg/dl AST 77 H (13-39) U/L ALT 63 H (7-52) U/L Alkaline Phosphatase 168 H (34-104) U/L Albumin (3.4-5.0) gm/dl Urine Protein (Negative) Urine Glucose (UA) (Negative) Urine Ketones (Negative) U Epithel Cells (Auto) (0-5) /lpf Acetaminophen < 3 L (10-30) ug/ml 05/23/22 05/23/22 05/23/22 Range/Units 16:49 16:50 17:10 WBC (4.8-10.8) K/ul RBC (4.70-6.10) M/uL Hgb (14.0-18.0) g/dl Hct (42.0-52.0) % Neut # (Auto) (1.40-6.50) K/uL Lymph # (Auto) (1.2-3.4) K/uL [place] # (Auto) (0.11-0.59) K/uL Sodium (136-145) mmol/L Chloride (98-107) mmol/L Anion Gap (3-11) BUN/Creatinine Ratio (10-20) Glucose (70-99(Fasting)) mg/dl POC Glucose 310 H* 304 H* (70-99) mg/dl AST (13-39) U/L ALT (7-52) U/L Alkaline Phosphatase (34-104) U/L Albumin (3.4-5.0) gm/dl Urine Protein Trace H (Negative) Urine Glucose (UA) Trace H (Negative) Urine Ketones Trace H (Negative) U Epithel Cells (Auto) 10-20 H (0-5) /lpf Acetaminophen (10-30) ug/ml 05/23/22 05/24/22 05/24/22 Range/Units 20:36 05:52 05:52 WBC 11.93 H (4.8-10.8) K/ul RBC 3.96 L (4.70-6.10) M/uL Hgb 12.1 L (14.0-18.0) g/dl Hct 36.0 L (42.0-52.0) % Neut # (Auto) 10.10 H (1.40-6.50) K/uL Lymph # (Auto) 0.91 L (1.2-3.4) K/uL [place] # (Auto) 0.80 H (0.11-0.59) K/uL Sodium 133 L (136-145) mmol/L Chloride (98-107) mmol/L Anion Gap (3-11) BUN/Creatinine Ratio 22.4 H (10-20) Glucose 226 H (70-99(Fasting)) mg/dl POC Glucose 185 H (70-99) mg/dl AST 95 H (13-39) U/L ALT 112 H (7-52) U/L Alkaline Phosphatase 158 H (34-104) U/L Albumin 3.3 L (3.4-5.0) gm/dl Urine Protein (Negative) Urine Glucose (UA) (Negative) Urine Ketones (Negative) U Epithel Cells (Auto) (0-5) /lpf Acetaminophen (10-30) ug/ml Diagnostic Findings Liver Ultrasound 05/23/22 14:38 ABDOMINAL ULTRASOUND, RIGHT UPPER QUADRANT HISTORY: transaminitis. COMPARISON: Outside hospital abdomen and pelvis CT 05/04/2021. Abdominal ultrasound 03/27/2017. FINDINGS: Pancreas: The pancreatic head and tail are obscured by overlying bowel gas. The remaining portions of the pancreas are within normal limits. Liver: The liver is echogenic consistent with fatty change. 16 cm in length. No hepatic masses. Gallbladder: The gallbladder is contracted. This results in suboptimal evaluation. Borderline gallbladder wall thickening is likely due to the contracted gallbladder. No gallstones. Hypoechoic focus between the gallbladder wall and liver surface favors trace fluid. CBD: 4 mm. Right kidney: No hydronephrosis. IMPRESSION: 1. Contracted gallbladder resulting in suboptimal evaluation. This likely accounts for the borderline gallbladder wall thickening. 2. No gallstones. 3. Hepatic steatosis. 4. Small hypoechoic focus located between the gallbladder and liver may represent trace fluid. ACT 112: Negative or not required by law. Electronically signed by: Walt Luna M.D. 05/23/2022 4:54 PM Hip X-Ray 05/24/22 09:30 XR hip LT min 2V HISTORY: 56 years-old Male multiple falls, persistent left hip pain Left hip pain status post fall COMPARISON: Pelvis and hip radiographs 10/13/2020 TECHNIQUE: 2 views of the left hip FINDINGS: No acute fracture, dislocation, significant joint space narrowing or avascular necrosis. Unremarkable soft tissues. Partially imaged lumbar spinal fusion hardware. IMPRESSION: No acute fracture or dislocation. ACT 112: Negative or not required by law. The above report was generated using voice recognition software. It may contain grammatical, syntax or spelling errors. Electronically signed by: Miek Umaña M.D. 05/24/2022 10:53 AM PG Care Time/CCT Total # of Minutes Spent Total Time Spent with Patient: Total time spent is greater than 50% in coordination of care (as documented) at patient's floor/unit and/or counseling patient: Coding Level of Care Code 29319 SUB INP/OBS CARE 2/35MIN Diagnoses Left hip pain M25.552 Post-op pain G89.18 Hyponatremia E87.1 Transaminitis R74.01 Depression F32.A Diabetes mellitus, type 2 E11.9 Hypertension I10
[2022-05-24] MEDS: INSULIN ASPART PER UNIT CHARGE SC SCH ×4 (08:31→21:15)
--- NOTE | 2022-05-24 09:32 | Orthopedic Consultation ---
Date of Consultation May 24, 2022 Assessment & Plan (1) Left hip pain: Pt presented to the ED yesterday after sustaining a fall at home the day prior. Patient has been admitted to the medical service for ongoing back and left hip pain along with hyponatremia. Pt on exam appears to be more consistent with low back radiculopathy. Left Hip XR was ordered and reveals no fracture or any significant joint space narrowing. I do not believe patient would benefit from hip injection at this time. Recommend antiinflammatory medications if able and continue Lidoderm patch to low back. Pt may also benefit from physical therapy sessions as well. Supervising Physician Co-Signing Physician Notes Patient seen and examined. Agree with HANNAH Shaffer's note as above. Patient has a long history of back pain with radiculopathy. He notes intermittent episodes of "cramping" pain down the lateral aspect of his leg, but does endorse some intermittent tenderness to palpation over the area as well. He has never had any steroid injections into the trochanteric bursa area in the past. He denies any groin pain. On exam, no significant tenderness to palpation over the greater trochanteric bursa, but he does have a Lidoderm patch in place. No groin pain with logroll of the hip. Left hip x-rays are unremarkable, with no arthritis or fracture. No urgent orthopedic surgical intervention is required. It is possible that he has some greater trochanteric bursitis that is contributing to his overall symptoms, and he may benefit from a trial of the trochanteric bursa steroid injection in the future, but this can be further managed on an outpatient basis. History of Present Illness Reason for Consultation: Left Hip Pain Attending Physician: Joshua Aguayo MD History of Present Illness Patient is a 56-year-old male who presented to the ED after sustaining a fall with uncontrolled back pain and complaints of left hip pain. Patient has had multiple recent admissions to this facility. He recently underwent lumbar decompression and fusion performed by Dr. Purcell on 04/25/2022, he was discharged home in stable condition. He unfortunately was drinking and had fallen again which prompted him come back to the ED at that time and again underwent surgical intervention by Dr. Purcell for evacuation of seroma on 05/08/2022. He was then again discharged on 05/10/2022. Since that time, the patient states that he he has had persistent yesterday to the ED for ongoing low back pain and left hip pain. States that at times he has some numbness and tingling down his left leg which ultimately caused him to sustain another fall two days ago. He states his hip pain has been persistent since roughly January and has been there prior to surgery. He has been able to ambulate on his own and does not use assistive devices. Patient recently completed a short burst of steroids as an outpatient and states that he is out of his oxycodone that he was taking since surgery. Patient states that 2 days ago he sustained a fall outside, he was unable to get up on his own, and he needed to call his to help him get up. States that because of ongoing pain he decided to come to the ED for further evaluation. He denies any saddle anesthesia or incontinence at this time. Patient underwent repeat lumbar MRI and has been reviewed by Dr. Purcell who does not feel that he warrants surgical intervention at this time. Allergies Allergy/AdvReac Type Severity Reaction Status Date / Time shellfish derived Allergy Severe Throat Verified 05/23/22 11:07 swelling tramadol Allergy Mild Hives, Verified 05/23/22 11:07 dizziness, nausea acetaminophen AdvReac Mild Upset Verified 05/23/22 11:07 stomach Home Medications Medication Instructions Recorded Confirmed Type amitriptyline 100 mg tablet 100 mg PO HS 02/16/19 05/23/22 History atorvastatin 80 mg tablet (Lipitor) 80 mg PO HS 02/16/19 05/23/22 History famotidine 20 mg tablet (Pepcid) 20 mg PO BID 02/16/19 05/23/22 History gabapentin 100 mg capsule 100 mg PO TID 02/16/19 05/23/22 History losartan 50 mg tablet (Cozaar) 50 mg PO QAM 02/16/19 05/23/22 History metoprolol succinate 25 mg 25 mg PO QAM 02/23/19 05/23/22 History tablet,extended release 24 hr (Toprol XL) metformin 1,000 mg tablet 1,000 mg PO BID 02/29/20 05/23/22 History melatonin 10 mg tablet 10 mg PO HS 09/07/21 05/23/22 History oxycodone 10 mg tablet 10 mg PO Q6H PRN pain #30 tabs 10/31/21 05/23/22 Rx paroxetine HCl 30 mg tablet (Paxil) 30 mg PO QAM 04/05/22 05/23/22 History cyclobenzaprine 10 mg tablet 10 mg PO TID PRN muscle spasm #15 05/10/22 05/23/22 Rx tabs Patient History Medical History CAD (coronary artery disease) 2007 x 2 stents (LAD, Diagonal) 2012 (PADMINI D1) cardiac stents x3 total (most recent stent 2011) No recent issues Degenerative disc disease s/p cervical fusion Depression Diabetes mellitus, type 2 NIDDM GERD (gastroesophageal reflux disease) controlled, stable per pt Hyperlipidemia Hypertension controlled, stable per pt Myocardial Infarction 2012 > stents SIDDHARTHA (obstructive sleep apnea) pt states the last sleep study was negative Surgical History Difficult intubation Right reverse total shoulder replacement (10/08/21): Glidescope#3, ETT 7.5 + PNB at [facility]. *Difficult airway* per anesthesia record comments. No issues noted per post-op anesthesia progress note. Fusion of spine ACDF C6-C7, C5 corpectomy: 08/08/10: MAC#4, ETT 7.5 at [facility] History of cardiac cath 2007 x 2 stents (LAD, Diagonal) 2011 (PADMINI D1) History of colonoscopy History of esophageal dilatation History of esophagogastroduodenoscopy (EGD) History of hip surgery right hip (as a child) History of lumbar fusion 10/04/2020: elective glidescope 3. ETT 8.0. History of repair of rotator cuff right History of reverse total replacement of right shoulder joint Right reverse total shoulder replacement (10/08/21): Glidescope#3, ETT 7.5 + PNB at [facility]. *Difficult airway* per anesthesia record comments. No issues noted per post-op anesthesia progress note. History of tooth extraction History of total knee replacement right knee S/P arthroscopy of right shoulder 03/18/19. 02/29/20. LMA#5. Family History Father Family history of diabetes mellitus Other No family history of adverse response to anesthesia Social History Smoking Status: Never smoker Tobacco Type: Cigarettes Second Hand Exposure: No; Hx Alcohol Use: No Hx Substance Use: No Preferred Language: Khmer Communication Ability: Effective Staff Physical Therapist Required: No Beliefs That Will Affect Care: None marital status: Current Living Situation: Spouse Other Information That Helps Us Care for You: No Feels Safe at Home: No Is there a partner from a previous relationship who is making you feel unsafe now?: No Any Concerns about Your Family Situation: No Would You Like to Speak to Someone About Your Situation: No Safety Concerns: Feels Safe At This Time Assistive Devices: Walker Review of Systems Review of Systems: All systems reviewed & are unremarkable except as noted in HPI & below Physical Exam Physical Exam: Lumbar surgical site healing appropriately. LLE with full ROM throughout, 4/5 strength when compared to RLE on straight leg raise. TTP over the left lower back that extends into the buttock. Very minimal tenderness elicited over the left hip. He has been able to ambulate in room without assistance. Small superficial abrasion appreciated over left meng. Results & Data Vital Signs (Past 12 Hours) Vital Signs Temp Pulse Pulse Resp BP Pulse Ox O2 Del Method 05/24/22 07:51 36.4 C L 70 18 135/81 96 Room Air 05/24/22 07:41 70 135/81 Laboratory Results Laboratory Results WBC 11.93 K/ul (4.8-10.8) H 05/24/22 05:52 RBC 3.96 M/uL (4.70-6.10) L 05/24/22 05:52 Hgb 12.1 g/dl (14.0-18.0) L 05/24/22 05:52 Hct 36.0 % (42.0-52.0) L 05/24/22 05:52 MCV 90.9 fL (80.0-100.0) 05/24/22 05:52 MCH 30.6 pg (25.0-34.0) 05/24/22 05:52 MCHC 33.6 g/dL (32.0-36.0) 05/24/22 05:52 RDW Std Deviation 42.6 fL (36.4-46.3) 05/24/22 05:52 RDW Coeff of Padmini 12.8 % (11.5-14.5) 05/24/22 05:52 Plt Count 250 K/uL (130-400) 05/24/22 05:52 MPV 10.7 fL (9.4-12.4) 05/24/22 05:52 Immature Gran % (Auto) 0.9 % 05/24/22 05:52 Neut % (Auto) 84.7 % 05/24/22 05:52 Lymph % (Auto) 7.6 % 05/24/22 05:52 [place] % (Auto) 6.7 % 05/24/22 05:52 Eos % (Auto) 0.0 % 05/24/22 05:52 Baso % (Auto) 0.1 % 05/24/22 05:52 Neut # (Auto) 10.10 K/uL (1.40-6.50) H 05/24/22 05:52 Lymph # (Auto) 0.91 K/uL (1.2-3.4) L 05/24/22 05:52 [place] # (Auto) 0.80 K/uL (0.11-0.59) H 05/24/22 05:52 Eos # (Auto) 0.00 K/uL (0-0.50) 05/24/22 05:52 Baso # (Auto) 0.01 K/uL (0-0.2) 05/24/22 05:52 Immature Gran # (Auto) 0.11 K/uL (0.01-0.20) 05/24/22 05:52 Sodium 133 mmol/L (136-145) L 05/24/22 05:52 Potassium 4.3 mmol/L (3.5-5.1) 05/24/22 05:52 Chloride 100 mmol/L (98-107) 05/24/22 05:52 Carbon Dioxide 25 mmol/L (21-32) 05/24/22 05:52 Anion Gap 8 (3-11) 05/24/22 05:52 BUN 15 mg/dl (6-23) 05/24/22 05:52 Creatinine 0.67 mg/dl (0.6-1.4) 05/24/22 05:52 Est Cr Clr Drug Dosing 156.7 ml/min 05/24/22 05:52 Est GFR ( Amer) 124.5 ml/min 05/24/22 05:52 Est GFR (Non-Af Amer) 107.4 ml/min 05/24/22 05:52 BUN/Creatinine Ratio 22.4 (10-20) H 05/24/22 05:52 Glucose 226 mg/dl (70-99(Fasting)) H 05/24/22 05:52 POC Glucose 209 mg/dl (70-99) H 05/24/22 08:05 Calcium 9.0 mg/dl (8.5-10.1) 05/24/22 05:52 Magnesium 2.1 mg/dl (1.7-2.4) 05/24/22 05:52 Total Bilirubin 0.5 mg/dl (0.2-1.0) 05/24/22 05:52 AST 95 U/L (13-39) H 05/24/22 05:52 ALT 112 U/L (7-52) H 05/24/22 05:52 Alkaline Phosphatase 158 U/L (34-104) H 05/24/22 05:52 Total Protein 6.8 gm/dl (6.0-8.3) 05/24/22 05:52 Albumin 3.3 gm/dl (3.4-5.0) L 05/24/22 05:52 Globulin 3.5 gm/dl (2.5-4.0) 05/24/22 05:52 Albumin/Globulin Ratio 0.9 (0.9-2) 05/24/22 05:52 Lipase 27 U/L (11-82) 05/23/22 08:27 Urine Color [place] 05/23/22 17:10 Urine Appearance Clear (Clear) 05/23/22 17:10 Urine pH 6.0 (4.5-7.5) 05/23/22 17:10 Ur Specific [place] 1.019 (1.000-1.030) 05/23/22 17:10 Urine Protein Trace (Negative) H 05/23/22 17:10 Urine Glucose (UA) Trace (Negative) H 05/23/22 17:10 Urine Ketones Trace (Negative) H 05/23/22 17:10 Urine Blood Negative (Negative) 05/23/22 17:10 Urine Nitrite Negative (Negative) 05/23/22 17:10 Urine Bilirubin Negative (Negative) 05/23/22 17:10 Urine Urobilinogen Negative (Negative) 05/23/22 17:10 Ur Leukocyte Esterase Negative (Negative) 05/23/22 17:10 Urine WBC (Auto) 1-5 /hpf (0-5) 05/23/22 17:10 Urine RBC (Auto) 0-4 /hpf (0-4) 05/23/22 17:10 U Hyaline Cast (Auto) 1-5 /lpf (0-5) 05/23/22 17:10 U Epithel Cells (Auto) 10-20 /lpf (0-5) H 05/23/22 17:10 Urine Bacteria (Auto) Negative (Negative) 05/23/22 17:10 Acetaminophen < 3 ug/ml (10-30) L 05/23/22 08:27 SARS-CoV-2, RNA, NAAT NEGATIVE (NEGATIVE) 05/23/22 Unknown Impressions Lumbar Spine MRI 05/23/22 09:24 MRI OF THE LUMBAR SPINE WITHOUT CONTRAST CLINICAL HISTORY: Persistent post-op pain, post-op seroma, left radiculopathy. COMPARISON STUDY: Lumbar spine MRI May 05, [address] May 07, 2022. TECHNIQUE: Utilizing a 1.5 Lise magnet and dedicated coil, multiplanar, multiecho imaging of the lumbar spine was performed without IV contrast. FINDINGS: For purposes of numbering on this exam, the L5-S1 disc space is assigned to axial image 30 of 33. Alignment of the lumbar spine is anatomic. Vertebral body heights are maintained. There are postoperative findings consistent with L3-L4, L4-L5 and L5-S1 discectomies with a posterior decompression and bilateral pedicle screw fusion from L3 through S1. Fluid adjacent to the surgical hardware is again noted. Increased T2 signal within the operative bed, involving the paraspinal musculature is again noted. There is a 6.9 x 2.9 x 2.1 cm laminectomy bed fluid collection. This is nonspecific in the early postoperative setting. Although this exam is compromised by artifact, the operative bed fluid collection shown on MRI of May 05, 2022 has likely decreased in size. Note is made of a probable intracanalicular collection within the posterior aspect of the canal at the L2-L3 level that measures 2.8 x 0.5 cm. This collection, superimposed upon a disc bulge result in moderate central canal stenosis. Patent AP diameter of the canal is 4.4 mm. Otherwise, there is no significant central canal stenosis. Neural foramen are suboptimally assessed by artifact. There is mild to moderate multilevel neural foraminal stenosis. No severe neural foraminal stenosis is present. No new disc herniations are present. There is no evidence for discitis or osteomyelitis. IMPRESSION: 1. Status post L3-S1 discectomies, posterior decompression and bilateral pedicle screw fusion. 6.9 x 2.9 x 2.1 cm laminectomy bed fluid collection. This favors a seroma in the early postoperative setting however sterility cannot be assessed by MRI. 2. Suspected small posterior epidural fluid collection at the L2-L3 level which measures 2.8 x 0.5 cm. This nonspecific collection, in conjunction with a mild disc bulge, result in moderate central canal stenosis. Otherwise, patent central canal. 3. Mild to moderate multilevel neural foraminal stenosis. 4. Exam compromised by susceptibility artifact from the surgical hardware. ACT 112: Negative or not required by law. Electronically signed by: Maykel Jackson M.D. 05/23/2022 1:11 PM Hip X-Ray 05/24/22 09:30 XR hip LT min 2V HISTORY: 56 years-old Male multiple falls, persistent left hip pain Left hip pain status post fall COMPARISON: Pelvis and hip radiographs 10/13/2020 TECHNIQUE: 2 views of the left hip FINDINGS: No acute fracture, dislocation, significant joint space narrowing or avascular necrosis. Unremarkable soft tissues. Partially imaged lumbar spinal fusion hardware. IMPRESSION: No acute fracture or dislocation. ACT 112: Negative or not required by law. The above report was generated using voice recognition software. It may contain grammatical, syntax or spelling errors. Electronically signed by: Mike Umaña M.D. 05/24/2022 10:53 AM
--- NOTE | 2022-05-24 10:54 | XRay Report ---
XR hip LT min 2V HISTORY: 56 years-old Male multiple falls, persistent left hip pain Left hip pain status post fall COMPARISON: Pelvis and hip radiographs 10/13/2020 TECHNIQUE: 2 views of the left hip FINDINGS: No acute fracture, dislocation, significant joint space narrowing or avascular necrosis. Unremarkable soft tissues. Partially imaged lumbar spinal fusion hardware. IMPRESSION: No acute fracture or dislocation. ACT 112: Negative or not required by law. The above report was generated using voice recognition software. It may contain grammatical, syntax o r spelling errors. Electronically signed by: Mike Umaña M.D. 05/24/2022 10:53 AM
[2022-05-24] MEDS: LIDOCAINE 5% 1 PATCH TD SCH (11:17)
--- NOTE | 2022-05-24 13:49 | Orthopedic Consultation ---
Date of Consultation May 24, 2022 Assessment & Plan (1) Postoperative back pain: This time and can encourage physical therapy. We will reassess him throughout his normal postoperative course in the office. This may include possible trochanteric injections pending his continued pain. He is proving to be a struggle regarding narcotic utilization and we may consider pain management consult. History of Present Illness Reason for Consultation: Back pain with left leg weakness Attending Physician: Joshua Aguayo MD History of Present Illness This is a 56-year-old male known to me status post lumbar decompression fusion and has persistent postoperative difficulties. His severe back pain has improved. He is noting what he describes as weakness involving predominantly left lower extremity with prolonged standing and walking. He states this has been present for several years and is not necessarily worse. He does will require considerable amounts of narcotic medication to control his back pain. Today he is more comfortable he states he was able to ambulate about the room without difficulty. Allergies Allergy/AdvReac Type Severity Reaction Status Date / Time shellfish derived Allergy Severe Throat Verified 05/23/22 11:07 swelling tramadol Allergy Mild Hives, Verified 05/23/22 11:07 dizziness, nausea acetaminophen AdvReac Mild Upset Verified 05/23/22 11:07 stomach Home Medications Medication Instructions Recorded Confirmed Type amitriptyline 100 mg tablet 100 mg PO HS 02/16/19 05/23/22 History atorvastatin 80 mg tablet (Lipitor) 80 mg PO HS 02/16/19 05/23/22 History famotidine 20 mg tablet (Pepcid) 20 mg PO BID 02/16/19 05/23/22 History gabapentin 100 mg capsule 100 mg PO TID 02/16/19 05/23/22 History losartan 50 mg tablet (Cozaar) 50 mg PO QAM 02/16/19 05/23/22 History metoprolol succinate 25 mg 25 mg PO QAM 02/23/19 05/23/22 History tablet,extended release 24 hr (Toprol XL) metformin 1,000 mg tablet 1,000 mg PO BID 02/29/20 05/23/22 History melatonin 10 mg tablet 10 mg PO HS 09/07/21 05/23/22 History oxycodone 10 mg tablet 10 mg PO Q6H PRN pain #30 tabs 10/31/21 05/23/22 Rx paroxetine HCl 30 mg tablet (Paxil) 30 mg PO QAM 04/05/22 05/23/22 History cyclobenzaprine 10 mg tablet 10 mg PO TID PRN muscle spasm #15 05/10/22 05/23/22 Rx tabs Patient History Medical History CAD (coronary artery disease) 2007 x 2 stents (LAD, Diagonal) 2012 (PADMINI D1) cardiac stents x3 total (most recent stent 2011) No recent issues Degenerative disc disease s/p cervical fusion Depression Diabetes mellitus, type 2 NIDDM GERD (gastroesophageal reflux disease) controlled, stable per pt Hyperlipidemia Hypertension controlled, stable per pt Myocardial Infarction 2012 > stents SIDDHARTHA (obstructive sleep apnea) pt states the last sleep study was negative Surgical History Difficult intubation Right reverse total shoulder replacement (10/08/21): Glidescope#3, ETT 7.5 + PNB at [facility]. *Difficult airway* per anesthesia record comments. No issues noted per post-op anesthesia progress note. Fusion of spine ACDF C6-C7, C5 corpectomy: 08/08/10: MAC#4, ETT 7.5 at [facility] History of cardiac cath 2007 x 2 stents (LAD, Diagonal) 2011 (PADMINI D1) History of colonoscopy History of esophageal dilatation History of esophagogastroduodenoscopy (EGD) History of hip surgery right hip (as a child) History of lumbar fusion 10/04/2020: elective glidescope 3. ETT 8.0. History of repair of rotator cuff right History of reverse total replacement of right shoulder joint Right reverse total shoulder replacement (10/08/21): Glidescope#3, ETT 7.5 + PNB at [facility]. *Difficult airway* per anesthesia record comments. No issues noted per post-op anesthesia progress note. History of tooth extraction History of total knee replacement right knee S/P arthroscopy of right shoulder 03/18/19. 02/29/20. LMA#5. Family History Father Family history of diabetes mellitus Other No family history of adverse response to anesthesia Social History Smoking Status: Never smoker Tobacco Type: Cigarettes Second Hand Exposure: No; Hx Alcohol Use: No Hx Substance Use: No Preferred Language: French Communication Ability: Effective Pest Controller Assistant Required: No Beliefs That Will Affect Care: None marital status: Current Living Situation: Spouse Other Information That Helps Us Care for You: No Feels Safe at Home: No Is there a partner from a previous relationship who is making you feel unsafe now?: No Any Concerns about Your Family Situation: No Would You Like to Speak to Someone About Your Situation: No Safety Concerns: Feels Safe At This Time Assistive Devices: None Physical Exam Physical Exam: On exam he does not appear to be in acute distress. Is a good strength testing to lower extremities with hip flexion and quadriceps plantarflexion dorsiflexion. There is there is definite tenderness along left IT band and trochanteric region. Sensory is intact. Results & Data Vital Signs (Past 12 Hours) Vital Signs Temp Pulse Pulse Resp BP Pulse Ox O2 Del Method 05/24/22 07:51 36.4 C L 70 18 135/81 96 Room Air 05/24/22 07:41 70 135/81
[2022-05-24] MEDS: ATORVASTATIN 40 MG TAB PO SCH (21:14)
[2022-05-24] MEDS: AMITRIPTYLINE HCL 100 MG TAB PO SCH (21:14)
[2022-05-24] MEDS: MELATONIN 3 MG TAB PO SCH (21:15)
[2022-05-25] MEDS: oxyCODONE HCL IR 5 MG TAB (IMMEDIATE RELEASE) PO PRN ×2 (03:05→09:12)
[2022-05-25] MEDS: DICLOFENAC SOD 1% GEL 100 GM TUBE EXT SCH ×2 (06:31→12:25)
--- NOTE | 2022-05-25 07:30 | Hospitalist Progress Note ---
Date of Service May 25, 2022 Assessment & Plan (1) Left hip pain: Plan: Acute on chronic left hip pain moderate risk recent hospitalization for post-op lower back pain from seroma s/p drainage. oxycodone consistently as an outpatient without much relief. chronic weakness in bilat lower extremities causing him to have falls, ongoing tingling down bilat LEs which is choronic and maybe diabetic neuropathy - Topical Voltaren gel to L hip q6h ordered - Kpad to left hip - Lidoderm patch - Continue PT/OT - Consulted orthopedics ordered Left hip Xray - No acute fracture or dislocation - Consulted ortho/spine ordered Lidoderm patch and recommended possible pain management - Continue OxyIR 10mg q6h prn moderate to severe pain, Tylenol can be utilized for mild to moderate pain (2) Hyponatremia: Plan: - chronic and improved, suspect excess voluem intake (3) Transaminitis: Plan: -chronic and improved - Limit hepatotoxic medications (4) Depression: Plan: - chronic and stable Continue Amitriptyline and Paxil (5) Diabetes mellitus, type 2: Plan: -chronic and stable, Resume Metformin 1000mg BID - Carb consistent diet - Accuchecks AC and HS - Add coverage if BSG >180 (6) Hypertension: Plan: - chornic and stable - Continue Losartan and Metoprolol Succinate (7) Post-op pain: Plan: Post operative back pain s/p lumbar decompression and fusion and seroma evacuation - Oxycodone as indicated above and Flexeril - High suspicion for opioid abuse from multiple providers involved in his care - avoid IV narcotics - Added Lidoderm patch and Kpad - PT/OT and case management consult for rehab consideration Plan Above plan of care has been d/w Dr. Aguayo. Admission and Anticipated Discharge Date Admission Date: May 23, 2022 Results & Data Results & Data Vital Signs (Past 12 Hours) Vital Signs Temp Pulse Resp BP Pulse Ox O2 Del Method 05/24/22 20:00 Room Air 05/24/22 21:18 97.3 F L 76 17 132/77 95 Room Air PG Care Time/CCT Total # of Minutes Spent Total Time Spent with Patient: Total time spent is greater than 50% in coordination of care (as documented) at patient's floor/unit and/or counseling patient: Coding Diagnoses Left hip pain M25.552 Hyponatremia E87.1 Transaminitis R74.01 Depression F32.A Diabetes mellitus, type 2 E11.9 Hypertension I10 Post-op pain G89.18
[2022-05-25] MEDS: metFORMIN HCL 500 MG TAB PO SCH (08:42)
[2022-05-25] MEDS: FAMOTIDINE 20 MG TAB PO SCH (08:43)
[2022-05-25] MEDS: GABAPENTIN 100 MG CAP PO SCH (08:44)
[2022-05-25] MEDS: LOSARTAN POTASSIUM 50 MG TAB PO SCH (08:45)
[2022-05-25] MEDS: METOPROLOL SUCC 25MG EXT REL TAB PO SCH (08:46)
[2022-05-25] MEDS: PARoxetine HCL 20 MG TAB PO SCH (08:47)
[2022-05-25] MEDS: LIDOCAINE 5% 1 PATCH TD SCH (08:49)
[2022-05-25] MEDS: INSULIN ASPART PER UNIT CHARGE SC SCH ×2 (09:16→12:23)
--- NOTE | 2022-05-25 11:18 | Orthopedic Progress Note ---
Date of Service May 25, 2022 Assessment & Plan (1) Acute hyponatremia: Plan: This time encourage him to undergo activity as tolerated. We will follow him up as scheduled this week. Admission and Anticipated Discharge Date Admission Date: May 23, 2022 Subjective Back pain controlled leg pain improved Physical Exam Physical Exam: Patient appears comfortable. Is constricted testing. Results & Data Vital Signs (Past 12 Hours) Vital Signs Temp Pulse Pulse Resp BP Pulse Ox O2 Del Method 05/25/22 08:28 36.4 C L 64 68 16 144/85 H 96 Room Air
--- NOTE | 2022-05-25 12:46 | Discharge Summary ---
Date of Service May 25, 2022 Admission HPI Per Admitting Provider Kareem Guan is a 56 yo WM who is known to our group from multiple recent admissions to this facility. He underwent lumbar decompression and fusion by Dr. Purcell on 04/25. He was discharged in stable condition home. Since that time, he presented back to the hospital on 05/05 due to uncontrolled back pain with findings on MRI suggestive of a post operative seroma. Additionally, the patient disclosed that they were at a libertarian consuming alcoholic beverages when he sustained a fall which worsened his back pain and prompted him to seek care in the ER. He was admitted to the hospital and underwent evacuation of the seroma by Dr. Purcell on 05/08. He returned home on 05/10. Since then, the patient and his note persistent back pain and now with more pronounced left hip pain. He c/o numbness and tingling down both legs with L leg numbness being worse than left. He recently completed a short burst of steroids as an outpatient. In addition, he notes that he is out of Oxycodone of which he had been told to increase by his orthopedic surgeon. His notes that he has fallen a few times since he left the hospital and that one of the times he fell outside he was unable to get up on his own. He denies fever, cough, gu symptoms, loss of bowel or bladder control or saddle anesthesias. In the ER today, he underwent a repeat MRI which was reviewed by Dr. Purcell. He did not feel he warranted any surgical intervention for the findings. In addition, he was noted to have mildly elevated LFTs and a sodium of 129. Patient denies drinking alcohol consistently, notes that he only drinks "a couple of beers each month." He was medicated with two doses of Dilaudid in ED, one liter of NSS, as well as Zofran and Decadron. He has been referred to the hospitalist service for admission for ongoing evaluation and treatment. Principal Diagnosis Patient states he is feeling much better he said pain is a 2 out of 10. He is eager to go home. Is also seen by Dr. Purcell who phoned me and also endorsed him going home. He will follow-up in the office on 05/30 for possible pain management intervention Discharge Exam Awake alert appropriate. No active distress. Patient was able patient was able to textile examiner the room. Cardiac exam is regular lungs are clear Discharge Data Allergies Allergy/AdvReac Type Severity Reaction Status Date / Time shellfish derived Allergy Severe Throat Verified 05/23/22 11:07 swelling tramadol Allergy Mild Hives, Verified 05/23/22 11:07 dizziness, nausea acetaminophen AdvReac Mild Upset Verified 05/23/22 11:07 stomach Consultations 05/23/22 09:59 ED Decision to Admit Stat 05/23/22 14:37 Consult Orthopedic Surgery Stat 05/23/22 16:33 Consult Orthopedic Surgery Routine Ordered Studies 05/23/22 09:24 MRI Lumbar Spine [MR lumbar spine wo con] Stat 05/23/22 14:38 US liver Routine Hospital Course (1) Left hip pain: Acute on chronic left hip pain moderate risk recent hospitalization for post-op lower back pain from seroma s/p drainage. oxycodone consistently as an outpatient with as needed Flexeril Patient will continue use heat or cold compresses externally and follow-up with Dr. Purcell in his office for follow-up possible pain management intervention - - Consulted orthopedics ordered Left hip Xray - No acute fracture or dislocation - Consulted ortho/spine recommended possible pain management - Continue OxyIR 10mg q6h prn moderate to severe pain, Tylenol can be utilized for mild to moderate pain (2) Hyponatremia: - chronic and improved, suspect excess voluem intake (3) Transaminitis: -chronic and improved - Limit hepatotoxic medications (4) Depression: - chronic and stable Continue Amitriptyline and Paxil (5) Diabetes mellitus, type 2: -chronic and stable, Resume Metformin 1000mg BID - Carb consistent diet - Accuchecks AC and HS - Add coverage if BSG >180 (6) Hypertension: - chornic and stable - Continue Losartan and Metoprolol Succinate (7) Post-op pain: Post operative back pain s/p lumbar decompression and fusion and seroma evacuation - Oxycodone as indicated Lidoderm and Flexeril Total Time Total Time Spent Total Time Spent (In Minutes): It required greater than 30 minutes to prepare this patient for discharge Discharge Plan Discharge Items Patient Disposition: Home - Self-Care Reason For Visit: uncontrolled post operative back pain and l hip bu Discharge Diagnosis: Trochanteric bursitis Activity: As commented below Non-emergency contact: Primary Care Provider Call non-emergency contact if: you have any medication questions Follow-up/Referrals: Roberto Esposito [Primary Care Provider] - Diet: Regular Addtl Attending Provider Instructions: ACTIVITY RECOMMENDATIONS: SELF CARE INSTRUCTIONS AFTER THORACIC/LUMBAR FUSIONS 1. You may walk to your tolerance. It is good exercise for your legs and back. Expect some back and intermittent leg aches and pains. 2. You may perform "counter-top" level activities (make a sandwich, maricel with a project, etc.). 3. No bending or lifting of more than 10 pounds or back twisting of any nature (roll like a log when turning in bed). 4. You may ride in a car for 20-30 minutes at a time. No driving until after your first visit with your doctor. 5. Frequent changes of position and restricting sitting to 30 minutes at a time will help limit the amount of back spasms and stiffness you may experience. 6. You may discontinue the use of ambulatory aids (cane, crutches, etc.) once your strength and confidence allow. 7. You may textile examiner the shower and let water strike your incision when you arrive home at least once daily. Do not take a tub bath, sit in a hot tub or go into a swimming pool until after your first recheck in the office. SPECIAL CARE INSTRUCTIONS: VERY IMPORTANT TO READ AND REVIEW A. Your surgical incision has been closed with a cosmetic suture under the skin that will dissolve in about 6 weeks. In 14 days, you can use a pair of clean scissors and cut the suture that is left outside of the skin at the ends of your incision. 1. The small skin tapes can be removed 7 days after surgery if they have not fallen off by that point. 2. You may keep the wound open to air as much as possible to promote healing after post-op day number 5 unless told otherwise by your doctor. 3. If you think the wound looks like it is becoming infected (redness or worsening drainage) and/or you are experiencing fever, chill or worsening back pain and muscle spasms, contact the office so that we may evaluate you as soon as possible. B. Complications are uncommon, but please contact us if you have any signs or symptoms of: 1. wound infection (fever higher than 102.5 degrees F, redness, separation of wound, drainage, or increasing pain from the incision) 2. blood clots in legs (pain, swelling, redness and warmth in legs) 3. urinary tract infection (fever higher than 102.5 degrees F, burning upon urination or increased frequency of urination) 4. nerve problems (inability to walk on your toes or heels, numbness, loss of bowel or bladder control) 5. any other symptoms that concern you C. Please call the office at if you have any concerns or questions about your operation or recovery. D. No smoking! Smoking drastically decreases the chance of a solid fusion. E. Do not take any anti-inflammatory medications (Indocin, Advil, Motrin, Aspirin, Naprosyn, etc.) as these may inhibit the chance of a solid fusion. Tylenol is okay to take for pain. MANAGING PAIN AFTER SPINAL SURGERY 1. Narcotic medication is intended for short-term use and will be provided for surgical pain. Surgical pain usually lasts for a period of 4-6 weeks. Narcotic medication includes Percocet, Vicodin, Darvocet, Tylenol #3 or Lortab. 2. Longer-term pain is more appropriately treated with non-narcotic medication such as Tylenol ES. 3. Muscle spasm is not appropriately treated with narcotics. Muscle relaxers such as Soma, Flexeril or Skelaxin can be used along with Tylenol ES. 4. Remember that we all live with some "aches and pains". This is not unusual or uncommon after an injury or as we get older. a. Back pain is expected and may include muscle spasms for 4 to 6 weeks after surgery. The pain should gradually improve. If the pain worsens for no apparent reason, please contact the office. b. Intermittent leg pain may also be experienced and should not be concerned about unless it worsens for no apparent reason. If so, please contact the office. 5. We will provide appropriate medication within the normal guidelines of their prescribed use. We will also be very cautious and aware of potential abuse and extended duration of patients' medication needs. a. Pain medications are for your comfort and to assist with sleep and rest so that the tissue can heal. They are not provided in order to return to normal activity and should not be used through the day. To do so or worsening pain at night can result from ongoing tissue damage and development of tolerance to the prescribed medicine. 6. Please allow 2-3 days to process refills. Prescriptions will not be mailed but must be picked up at the office. FOLLOW UP VISIT: Keep your scheduled follow-up appointment. Any questions, please call the office at . Pending Studies at Discharge: No Stand-Alone Forms: My [facility], Pain - Opioid Pain Management, Smoking Cessation Medications and DC Order Prescriptions: New lidocaine 5 % Adhesive Patch,Medicated 1 patch transdermal QAM Qty: 10 0RF cyclobenzaprine 10 mg Tablet 10 mg PO TID PRN (Reason: muscle spasm) Qty: 15 0RF lidocaine [Lidoderm] 5 % adhesive patch,medicated 1 patch topical DAILY Qty: 15 0RF Rx Instructions: leave on most painful area for up to 12 hrs Continued oxycodone 10 mg tablet 10 mg PO Q6H PRN (Reason: pain) Qty: 30 0RF losartan [Cozaar] 50 mg Tablet 50 mg PO QAM atorvastatin [Lipitor] 80 mg Tablet 80 mg PO HS famotidine [Pepcid] 20 mg Tablet 20 mg PO BID gabapentin 100 mg Capsule 100 mg PO TID amitriptyline 100 mg Tablet 100 mg PO HS metoprolol succinate [Toprol XL] 25 mg Tablet Extended Release 24 Hr 25 mg PO QAM metformin 1,000 mg Tablet 1,000 mg PO BID melatonin 10 mg Tablet 10 mg PO HS paroxetine HCl [Paxil] 30 mg Tablet 30 mg PO QAM Discontinued cyclobenzaprine 10 mg tablet 10 mg PO TID PRN (Reason: muscle spasm) Qty: 15 0RF Discharge Orders: Discharge Order (Routine); Ordered 05/25/22 Ordered By: Joshua Guevara/Other Patient Handouts: Relieving Back Pain Admission Data Admit Date/Time: 05/23/22 14:37 Attending Provider: Joshua Aguayo Admit Provider: Usha Bryson Primary Care Provider: Roberto Esposito Other Providers: Mynor Purcell ; Usha Bryson ; Wilbur Hines Other Interventions: Discharge Summary Assessment (RN) Last Done: 05/25/22 12:21 Coding Level of Care Code 00985 INP/OBS DISCH >30 MIN Diagnoses Left hip pain M25.552 Hyponatremia E87.1 Transaminitis R74.01 Depression F32.A Diabetes mellitus, type 2 E11.9 Hypertension I10 Post-op pain G89.18
== END 2022-05-25 13:22 | disposition home or self-care (01) | DRG 558 ==
LOC: ED 07:33 → 3E 14:37 → SUATTDRO 14:37 → 3E 15:58

== ENCOUNTER 2022-05-29 14:23 | Inpatient (IN) ==
--- NOTE | 2022-05-29 12:20 | Anesthesiology Consultation ---
Date of Service May 29, 2022 Assessment & Plan (1) Encounter for pre-operative examination: - Check BSG AM DOS - *Difficult airway* per anesthesia record comments. Glidescope intubation for Right reverse total shoulder replacement (10/08/21) and lumbar spine I&D (05/08/22) at [facility]. - S/P Lumbar spine I&D (05/08/22): Grade view 1, Glidescope#3, ETT 7.5 at [facility]. Atraumatic. No issues noted per post-op anesthesia progress note. - Received update from surgeon's office that decision for patient to be admitted/surgery done as inpatient. Chart Review Chart Review: Patient NOT seen in Pre Admission Testing History Surgery Operation Date: 05/30/22 13:00 Proposed Procedures p Infection Right Reverse Total Shoulder Arthroplasty - Pratik Latham, Height/Weight Height: 5 ft 11 in Weight: 109.9 kg Allergies Allergy/AdvReac Type Severity Reaction Status Date / Time shellfish derived Allergy Severe Throat Verified 05/23/22 11:07 swelling tramadol Allergy Mild Hives, Verified 05/23/22 11:07 dizziness, nausea acetaminophen AdvReac Mild Upset Verified 05/23/22 11:07 stomach Medications Home Medications Medication Instructions Recorded Confirmed Last Taken amitriptyline 100 mg tablet 100 mg PO HS 02/16/19 05/23/22 05/04/22 atorvastatin 80 mg tablet (Lipitor) 80 mg PO HS 02/16/19 05/23/22 05/04/22 famotidine 20 mg tablet (Pepcid) 20 mg PO BID 02/16/19 05/23/22 05/23/22 08:00 gabapentin 100 mg capsule 100 mg PO TID 02/16/19 05/23/22 05/23/22 08:00 losartan 50 mg tablet (Cozaar) 50 mg PO QAM 02/16/19 05/23/22 05/23/22 08:00 metoprolol succinate 25 mg 25 mg PO QAM 02/23/19 05/23/22 05/23/22 08:00 tablet,extended release 24 hr (Toprol XL) metformin 1,000 mg tablet 1,000 mg PO BID 02/29/20 05/23/22 05/23/22 08:00 melatonin 10 mg tablet 10 mg PO HS 07/03/3105/23/22 05/04/22 oxycodone 10 mg tablet 10 mg PO Q6H PRN pain #30 tabs 10/31/21 05/23/22 05/22/22 paroxetine HCl 30 mg tablet (Paxil) 30 mg PO QAM 04/05/22 05/23/22 05/23/22 08:00 cyclobenzaprine 10 mg tablet 10 mg PO TID PRN muscle spasm #15 05/25/22 Unknown tabs lidocaine 5 % topical patch 1 patch transdermal QAM #10 ea 05/25/22 Unknown lidocaine 5 % topical patch 1 patch topical DAILY #15 ea 05/25/22 Unknown (Lidoderm) amoxicillin 500 mg tablet 500 mg PO TID #90 tabs 05/28/22 05/28/22 Unknown Past Medical History Medical History CAD (coronary artery disease) 2007 x 2 stents (LAD, Diagonal) 2011 (PADMINI D1) cardiac stents x3 total (most recent stent 2011) No recent issues Degenerative disc disease s/p cervical fusion Depression Diabetes mellitus, type 2 NIDDM GERD (gastroesophageal reflux disease) controlled, stable per pt Hyperlipidemia Hypertension controlled, stable per pt Myocardial Infarction 2012 > stents SIDDHARTHA (obstructive sleep apnea) pt states the last sleep study was negative Past Family History Family History Father Family history of diabetes mellitus Other No family history of adverse response to anesthesia Past Surgical History Surgical History Difficult intubation Right reverse total shoulder replacement (10/08/21): Glidescope#3, ETT 7.5 + PNB at [facility]. *Difficult airway* per anesthesia record comments. No issues noted per post-op anesthesia progress note. Fusion of spine ACDF C6-C7, C5 corpectomy: 08/08/10: MAC#4, ETT 7.5 at [facility] History of cardiac cath 2007 x 2 stents (LAD, Diagonal) 2011 (PADMINI D1) History of colonoscopy History of esophageal dilatation History of esophagogastroduodenoscopy (EGD) History of hip surgery right hip (as a child) History of lumbar fusion 10/04/2020: elective glidescope 3. ETT 8.0. History of repair of rotator cuff right History of reverse total replacement of right shoulder joint Right reverse total shoulder replacement (10/08/21): Glidescope#3, ETT 7.5 + PNB at [facility]. *Difficult airway* per anesthesia record comments. No issues noted per post-op anesthesia progress note. History of tooth extraction History of total knee replacement right knee S/P arthroscopy of right shoulder 03/18/19. 02/29/20. LMA#5. Social History Smoking Status: Never smoker tobacco type: cigarettes Hx Alcohol Use: No Alcohol type: beer alcohol intake frequency: holidays/special occasions only Hx Substance Use: No substance use type: does not use Physical Exam Vital Signs Last Vital Signs Temp 37.2 C 05/29/22 14:52 Pulse 88 05/29/22 14:52 Resp 18 05/29/22 14:52 BP 120/74 05/29/22 14:52 Pulse Ox 99 05/29/22 14:52 O2 Del Method Room Air 05/29/22 14:52 Lab Results Anesthesia Preop Results Results Anesthesia Widget: WBC 15.97 K/ul (4.8-10.8) H 05/29/22 Hgb 11.5 g/dl (14.0-18.0) L 05/29/22 Hct 33.9 % (42.0-52.0) L 05/29/22 Plt 415 K/uL (130-400) H 05/29/22 Na 133 mmol/L (136-145) L 05/24/22 K 4.3 mmol/L (3.5-5.1) 05/24/22 Cl 100 mmol/L (98-107) 05/24/22 CO2 25 mmol/L (21-32) 05/24/22 BUN 15 mg/dl (6-23) 05/24/22 Creat 0.67 mg/dl (0.6-1.4) 05/24/22 Glucose Level 226 mg/dl (70-99(Fasting)) H 05/24/22 POC Glucose 119 mg/dl (70-99) H 05/25/22 PT 11.6 Seconds (9.0-12.0) 05/06/22 PTT 26.4 Seconds (21.0-31.0) 04/12/22 INR 1.1 (0.9-1.1) 05/06/22 HA1c 6.5 % (4.5-5.6) H 04/12/22 Urine Color [place] 05/23/22 Urine Appearance Clear (Clear) 05/23/22 Urine pH 6.0 (4.5-7.5) 05/23/22 Urine Specific [place] 1.019 (1.000-1.030) 05/23/22 Urine Protein Trace (Negative) H 05/23/22 Urine Glucose (UA) Trace (Negative) H 05/23/22 Urine Ketones Trace (Negative) H 05/23/22 Urine Blood Negative (Negative) 05/23/22 Urine Nitrite Negative (Negative) 05/23/22 Urine Bilirubin Negative (Negative) 05/23/22 Urine Urobilinogen Negative (Negative) 05/23/22 Urine Leukocyte Esterase Negative (Negative) 05/23/22 Urine WBC (Auto) 1-5 /hpf (0-5) 05/23/22 Urine RBC (Auto) 0-4 /hpf (0-4) 05/23/22 Urine Hyaline Casts (Auto) 1-5 /lpf (0-5) 05/23/22 Urine Epithelial Cells (Auto) 10-20 /lpf (0-5) H 05/23/22 Urine Bacteria (Auto) Negative (Negative) 05/23/22 SARS-CoV-2, RNA, NAAT NEGATIVE (NEGATIVE) 05/23/22 Blood Type A Positive 04/26/22 Antibody Screen NEGATIVE 04/26/22 Testing Electrocardiogram Date: 09/18/21 NSR, rate 82 bpm Chest X-Ray Date: 05/05/22 FINDINGS: No pneumothorax. No pleural effusions. No new focal lung consolidations to suggest pneumonia. No evidence for pulmonary edema. The heart remains normal in size. Cervical spinal fusion hardware and a right shoulder prosthesis are noted. IMPRESSION: No acute process. Echocardiogram Date: 09/22/20 EF 50% Severe hypokinesis of the mid-distal anterior and mid-distal anterolateral flynn and basal inferoseptum and basal inferior wall Abnormal regional strain values in the mid-distal anterior and mid-distal anterolateral flynn and basal inferoseptum Mild cLVH No significant valvular pathology Cervical Spine Date: 05/22/21 Cervical MRI FINDINGS: Cervical spine: Vertebral body height and alignment is maintained throughout the cervical spine. There is extensive postoperative change from anterior fusion seen at C4-C7. There is associated straightening of cervical lordosis. Anterior osteophytes are seen throughout. The atlantodental articulation is maintained. The spinous processes appear intact. There is no marrow edema or evidence of destructive bony lesion. Intervertebral discs: There is evidence of discectomy at C4-C5, C5-C6, and C6- C7. Disc desiccation and moderate loss of height is seen at the remaining cervical levels. Spinal cord: The cervical cord is normal in morphology and signal intensity. C2-C3: There is a large right lateral disc bulge seen on axial image #15. This contributes to moderate to severe central canal stenosis and likely impinges on the exiting right C3 nerve root. A posterior disc osteophyte complex minimally effaces the ventral subarachnoid space. Uncovertebral arthropathy is noted on the left. The left neural foramen is clear. C3-C4: A posterior disc osteophyte complex abuts the ventral cord. Lateral disc bulge is seen bilaterally. In conjunction with facet arthropathy there is severe right and moderate to severe left neural foraminal stenosis. This likely impinges on the exiting bilateral C4 nerve roots. C4-C5: Predominantly uncovertebral arthropathy contributes to mild bilateral neural foraminal stenosis, right greater than left. The central canal appears clear. C5-C6: Predominant uncovertebral arthropathy contributes to mild bilateral neural foraminal stenosis. The central canal is clear. C6-C7: Lateral disc bulge is seen bilaterally, left greater than right. This contributes to moderate to severe left greater than right neural foraminal stenosis and may impinge on the exiting bilateral C7 nerve roots. There is no significant acquired compromise of the central canal. C7-T1: There is a posterior disc herniation eccentric to the left which effaces the left aspect of the ventral cord. This contributes to moderate to severe left-sided neural foraminal stenosis and impinges on the exiting left C8 nerve root. Mild neural foraminal narrowing is seen on the right. T1-T2: There is a large left lateral disc herniation which effaces the left aspect of the ventral cord. There is severe left-sided neural foraminal stenosis with impingement on the exiting left T1 nerve root. Right lateral disc bulge contributes to moderate neural foraminal stenosis and may impinge on the exiting right T1 nerve root. T2-T3: Posterior disc bulge effaces the ventral subarachnoid space. The neural foramina appear clear. Soft tissues: The prevertebral and paraspinous soft tissues are normal as visualized. Brain parenchyma: The imaged brain parenchyma at the skull base is within normal limits. IMPRESSION: 1. Postoperative change with multilevel spondylosis of the cervical and upper thoracic spine as detailed above. See discussion for detailed level by level analysis. 2. The cervical cord is normal in morphology and signal intensity. 3. No destructive bony process is identified. Other Testing Shoulder CT (05/29/22) 1. The examination is significantly degraded by streak artifact from a right shoulder arthroplasty. 2. No acute bony abnormality is identified. 3. The right shoulder arthroplasty is in near anatomic alignment with no CT evidence of hardware complication. 4. There is multiloculated gas and fluid seen around the arthroplasty as above. Some of this is likely intra-articular, and the fluid extends from above the shoulder arthroplasty/below the AC joint, anteriorly along the humeral shaft. Some of this also appears to be intramuscular and there is surrounding inflammation. This may be on a postsurgical basis if there has been recent instrumentation. The sterility of this fluid cannot be assessed by imaging. Correlate clinically for evidence of infection.
[2022-05-29] MEDS ORDERED: ACETAMINOPHEN 325 MG TAB PO PRN (14:59)
--- NOTE | 2022-05-29 14:59 | History & Physical Report ---
Date of Service May 29, 2022 Assessment & Plan (1) Shoulder pain: Plan: Suspect infected at this time. Amoxicillin 3 doses taken as outpatient. Blood cultures ordered. Will start on Daptomycin and Zosyn following this. Consult orthopedics - discussed with Dr Latham, planning on OR tomorrow. NPO after midnight. (2) S/P arthroscopy of right shoulder: (3) Postoperative back pain: Plan: Progressively getting worse since his latest operation. Concerning for hardware infection given shoulder infection. Will consult his orthopedic surgeon to determine if further imaging required vs. waiting for blood and shoulder cultures. (4) Left hip pain: Plan: This appears to be improving from last admission. Most likely radicular coming from his back by description (5) Depression: Plan: Continue paroxetine (6) Diabetes mellitus, type 2: Plan: HbA1C 6.14 Apr 2022. No need to repeat this. Hold metformin Novolog: --Goal BSG Range: Low 110 mg/dL, High 140 mg/dL --Correction Factor: 45 mg/dL/unit No carb ratio --BSGs ACHS if eating, q6h if npo (7) GERD (gastroesophageal reflux disease): Plan: Continue famotidine 20mg PO BID (8) Hyperlipidemia: Plan: Will hold atorvastatin while on daptomycin (9) Hypertension: Plan: Continue losartan 50mg PO daily (hold prior to operation tomorrow) (10) CAD (coronary artery disease): Plan: 2007 x 2 stents (LAD, Diagonal) 2011 (PADMINI D1) Restart on aspirin post operatively when ok by orthopedics Continue metoprolol and losartan Restart atorvastatin when off daptomycin Plan VTE Prophylaxis - deferred pre-operatively Diet - heart healthy, T2DM, NPO after midnight Disposition - admit to med/surg Admission and Anticipated Discharge Date Admission Date: May 29, 2022 History of Present Illness Chief Complaint: Right shoulder pain Primary Care Provider: Roberto Esposito Kareem Guan is a 56 year old male who presents as a direct admission on advice from Dr Latham with concerns for a right prosthetic shoulder infection after outpatient CT performed today. Initial right reverse total shoulder ar throplasty performed by Dr. Latham on October 08, 2022 due to massive chronic rotator cuff tear. Initially doing well after his shoulder surgery however started having pain 5 days ago. Progressively getting worse each day with less shoulder movement due to severe pain. No fever or chills. He was started on amoxicillin by Dr Latham prior to CT results today and he has taken three doses of this. This is on a back ground of recent back surgery and worsening back pain. He underwent revision back surgery with removal of posterior instrumentation and posterior spinal fusion L3-L4 and L5-S1 with placement of posterior segmental instrumentation L3-S1 on April [address] Purcell due to back pain with numbness/tingling in his lower extremities worse than prior to his initial surgery in 2020. Due to progressively worsening back pain he returned to the OR on May 08 for irrigation and debridement of lumbar hematoma. He reports progressive worsening of his back pain without radicular symptoms although he reports weakness in his legs. He fell both last Friday and Friday due to weakness and has grazes on both knees and after the latest fall has erythema on his right foot which has been improving. He denies any history of stroke. He reports having an SD in 2011 with three stents placed. He denies any chest pain or shortness of breath on exertion but also does not ambulate much. Per last cardiology note he should still be taking an aspirin but this appears to have fallen off his medication list at some point and he reports no longer taking this. Allergies Allergy/AdvReac Type Severity Reaction Status Date / Time shellfish derived Allergy Severe Throat Verified 05/23/22 11:07 swelling tramadol Allergy Mild Hives, Verified 05/23/22 11:07 dizziness, nausea acetaminophen AdvReac Mild Upset Verified 05/23/22 11:07 stomach Home Medications Medication Instructions Recorded Confirmed Type amitriptyline 100 mg tablet 100 mg PO HS 02/16/19 05/29/22 History atorvastatin 80 mg tablet (Lipitor) 80 mg PO HS 02/16/19 05/29/22 History famotidine 20 mg tablet (Pepcid) 20 mg PO BID 02/16/19 05/29/22 History gabapentin 100 mg capsule 100 mg PO TID 02/16/19 05/29/22 History losartan 50 mg tablet (Cozaar) 50 mg PO QAM 02/16/19 05/29/22 History metoprolol succinate 25 mg 25 mg PO QAM 02/23/19 05/29/22 History tablet,extended release 24 hr (Toprol XL) metformin 1,000 mg tablet 1,000 mg PO BID 02/29/20 05/29/22 History melatonin 10 mg tablet 10 mg PO HS 09/07/21 05/23/22 History oxycodone 10 mg tablet 10 mg PO Q6H PRN pain #30 tabs 10/31/21 05/29/22 Rx paroxetine HCl 30 mg tablet (Paxil) 30 mg PO QAM 04/05/22 05/29/22 History cyclobenzaprine 10 mg tablet 10 mg PO TID PRN muscle spasm #15 05/25/22 05/29/22 Rx tabs lidocaine 5 % topical patch 1 patch transdermal QAM #10 ea 05/25/22 Rx lidocaine 5 % topical patch 1 patch topical DAILY #15 ea 05/25/22 Rx (Lidoderm) amoxicillin 500 mg tablet 500 mg PO TID #90 tabs 05/28/22 05/29/22 Rx Past Med/Surg History Medical History CAD (coronary artery disease) 2007 x 2 stents (LAD, Diagonal) 2011 (PADMINI D1) cardiac stents x3 total (most recent stent 2011) No recent issues Degenerative disc disease s/p cervical fusion Depression Diabetes mellitus, type 2 NIDDM GERD (gastroesophageal reflux disease) controlled, stable per pt Hyperlipidemia Hypertension controlled, stable per pt Myocardial Infarction 2012 > stents SIDDHARTHA (obstructive sleep apnea) pt states the last sleep study was negative Surgical History Difficult intubation Right reverse total shoulder replacement (10/08/21): Glidescope#3, ETT 7.5 + PNB at [facility]. *Difficult airway* per anesthesia record comments. No issues noted per post-op anesthesia progress note. Fusion of spine ACDF C6-C7, C5 corpectomy: 08/08/10: MAC#4, ETT 7.5 at [facility] History of cardiac cath 2007 x 2 stents (LAD, Diagonal) 2011 (PADMINI D1) History of colonoscopy History of esophageal dilatation History of esophagogastroduodenoscopy (EGD) History of hip surgery right hip (as a child) History of lumbar fusion 10/04/2020: elective glidescope 3. ETT 8.0. History of repair of rotator cuff right History of reverse total replacement of right shoulder joint Right reverse total shoulder replacement (10/08/21): Glidescope#3, ETT 7.5 + PNB at [facility]. *Difficult airway* per anesthesia record comments. No issues noted per post-op anesthesia progress note. History of tooth extraction History of total knee replacement right knee S/P arthroscopy of right shoulder 03/18/19. 02/29/20. LMA#5. Family History Father Family history of diabetes mellitus Other No family history of adverse response to anesthesia Social History Smoking Status: Current every day smoker Tobacco Type: Cigarettes Second Hand Exposure: No; Do You Dip or Chew Tobacco: No; Tobacco Cessation Education Requested by Patient: No Hx Alcohol Use: Yes Alcohol type: beer Hx Substance Use: No Preferred Language: Georgian Communication Ability: Effective Thermal Cutter Hand Required: No Beliefs That Will Affect Care: None marital status: Current Living Situation: Spouse Other Information That Helps Us Care for You: No Feels Safe at Home: Yes Safety Concerns: Feels Safe At This Time Assistive Devices: Walker and Wheelchair Review of Systems Review of Systems: All systems reviewed & are unremarkable except as noted in HPI & below Physical Exam Constitutional: WD/WN, vitals as above Non-septic appearing Eyes: + anicteric sclerae; normal pupil size ENMT: external ear and nose normal, oropharynx normal Neck: trachea midline, no thyromegaly Respiratory: normal respiratory effort, lungs clear to auscultation Cardiovascular: RRR, no murmur, no edema Gastrointestinal (Abdomen): normal bowel sounds, soft, nontender, no hepatosplenomegaly Musculoskeletal: Right shoulder: erythema swelling and pain at inferior portion of his shoulder surgery scar approximately 5cm diameter. Unable to abduct, adduct, flex or extend shoulder passively or actively due to severe pain Finger extension 4/5, nurses' registry director strength 5/5, no finger numbness Lower extremities: grazes on bilateral knees without knee effusion. Erythema on top of right foot extends from base of toes to mid foot with pain over mid 5th MT Deroofed blister on base of 1st toe without surrounding erythema No hip pain on int/ext rotation of hip or over greater trochanter b/l Back: Pain on palpation at inferior aspect of surgical scar without surrounding erythema or swelling Neurologic: awake; not confused Speech / Cognition: normal speech Psychiatric: A+Ox3, euthymic affect Results & Data Results & Data Vital Signs (Past 12 Hours) Vital Signs Temp Pulse Resp BP Pulse Ox O2 Del Method 05/29/22 14:31 37.2 C 88 18 120/74 99 Room Air Laboratory Results Abnormal lab results 05/29/22 05/29/22 Range/Units 16:19 16:45 Sodium 134 L (136-145) mmol/L BUN/Creatinine Ratio 8.1 L (10-20) Glucose 145 H (70-99(Fasting)) mg/dl POC Glucose 136 H (70-99) mg/dl Alkaline Phosphatase 211 H (34-104) U/L Albumin 3.0 L (3.4-5.0) gm/dl Diagnostic Findings CT SCAN OF THE RIGHT SHOULDER WITHOUT IV CONTRAST CLINICAL HISTORY: Atraumatic right shoulder pain. COMPARISON STUDY: Radiographs of the right shoulder dated 10/08/2021. TECHNIQUE: CT scan of the right shoulder is performed from the lower neck to the humeral shaft. Images are reviewed in the axial, sagittal, and coronal planes. IV contrast was not administered for this examination. A dose lowering technique was utilized adhering to the principles of ALARA. The examination is degraded by streak artifact from a right shoulder arthroplasty. CT DOSE: 897.17 mGy.cm FINDINGS: The skeletal structures are osteopenic. No acute fracture is identified. A right shoulder arthroplasty is in near anatomic alignment. No periprosthetic lucency is identified. There is no bony erosion or periostitis. The acromioclavicular joint is maintained. There is a loculated pocket of gas and fluid seen superior to the shoulder arthroplasty on axial image #70. This measures approximately 6 x 4 cm. This is likely contiguous with the joint space, and there is fluid/deep soft tissue gas seen extending anterior/inferior to the arthroplasty within the anterior shoulder musculature. This component measures approximately 7 x 3 x 4.5 cm as seen on axial image #175. There is overlying soft tissue edema. The visualized right lung parenchyma appears clear. Fusion hardware is noted in the lower cervical spine. No axillary lymphadenopathy is seen. IMPRESSION: 1. The examination is significantly degraded by streak artifact from a right shoulder arthroplasty. 2. No acute bony abnormality is identified. 3. The right shoulder arthroplasty is in near anatomic alignment with no CT evidence of hardware complication. 4. There is multiloculated gas and fluid seen around the arthroplasty as above. Some of this is likely intra-articular, and the fluid extends from above the shoulder arthroplasty/below the AC joint, anteriorly along the humeral shaft. Some of this also appears to be intramuscular and there is surrounding inflammation. This may be on a postsurgical basis if there has been recent instrumentation. The sterility of this fluid cannot be assessed by imaging. Correlate clinically for evidence of infection. Code Status & VTE Plan Code Status Full PG Care Time/CCT Total # of Minutes Spent Total Time Spent with Patient: Total time spent is greater than 50% in coordination of care (as documented) at patient's floor/unit and/or counseling patient: Coding Level of Care Code 56573 INT INP/OBS CARE 3/75MIN Diagnoses Shoulder pain M25.519 S/P arthroscopy of right shoulder Z98.890 Postoperative back pain G89.18; M54.9 Left hip pain M25.552 Depression F32.A Diabetes mellitus, type 2 E11.9 GERD (gastroesophageal reflux disease) K21.9 Hyperlipidemia E78.5 Hypertension I10 CAD (coronary artery disease) I25.10
[2022-05-29] MEDS ORDERED: CYCLOBENZAPRINE HCL 10 MG TAB PO PRN (15:42)
--- NOTE | 2022-05-29 15:51 | XRay Report ---
RIGHT FOOT 3 VIEWS CLINICAL HISTORY: Right foot injury. FINDINGS: 3 views of the right foot are obtained. No prior studies are available for comparison at th e time of dictation. The skeletal structures are well mineralized. No fracture is seen. Minimal degen erative changes seen at the first metatarsophalangeal joint. There is a large dorsal calcaneal enthes ophyte. Degenerative spurring is seen along the dorsal aspect of the tarsal bones. The overlying soft tissues are within normal limits. IMPRESSION: No acute bony abnormality is identified. Electronically signed by: Terrence Chatman M.D. 05/29/2022 3:50 PM
[2022-05-29] MEDS ORDERED: CARBOHYDRATES FOR HYPOGLYCEMIA PO PRN (15:57)
[2022-05-29] MEDS ORDERED: GLUCAGON FOR INJ 1 MG VIAL SQ PRN (15:57)
[2022-05-29] MEDS ORDERED: DEXTROSE 50% 50 ML SYRINGE IV PRN (15:57)
[2022-05-29] MEDS ORDERED: GLUCOSE 10 TAB/TUBE PO PRN (15:57)
[2022-05-29] MEDS ORDERED: GLUCOSE 40% GEL 15 GM TUBE PO PRN (15:57)
[2022-05-29] MEDS: MoRPHine SULFATE 4 MG/ML 1 ML CARP\\VIAL IV PRN ×2 (16:38→19:58)
[2022-05-29 17:01] LABS: Albumin Globulin Ratio 0.9 (0.9-2); BUN Creatinine Ratio 8.1 (10-20); Bilirubin,Total 0.5 mg/dl (0.2-1.0); Calcium 8.9 mg/dl (8.6-10.3); Creatinine Clr Calc Pharmacy 140.5 ml/min; Est GFR (African American) 119.5 ml/min; Est GFR (Non-African American) 103.1 ml/min; Globulin 3.5 gm/dl (2.5-4.0); Phosphorus 4.1 mg/dl (2.5-4.9); Potassium 4.3 mmol/L (3.5-5.1); Total Protein 6.5 gm/dl (6.0-8.3)
[2022-05-29 17:21] LABS: INR 1.2 (0.9-1.1); Partial Thromboplastin Time 27.1 Seconds (21.0-31.0)
[2022-05-29] MEDS ORDERED: PIPERACILLIN/TAZOBACTAM 3.375 GM (over 30 mins) IV ONE (17:30)
[2022-05-29] MEDS: INSULIN ASPART PER UNIT CHARGE SC SCH ×2 (17:36→20:03)
[2022-05-29] MEDS: DAPTOmycin 525 MG in SYRINGE 0 ML IV SCH (17:43)
[2022-05-29] MEDS: GABAPENTIN 100 MG CAP PO SCH (20:10)
[2022-05-29] MEDS: MELATONIN 3 MG TAB PO SCH (20:10)
[2022-05-29] MEDS: FAMOTIDINE 20 MG TAB PO SCH (20:11)
[2022-05-29] MEDS: AMITRIPTYLINE HCL 100 MG TAB PO SCH (20:11)
[2022-05-29] MEDS ORDERED: HYDROmorphone INJ 0.5 MG/0.5 ML SYR IV PRN (20:42)
[2022-05-29] MEDS ORDERED: NALOXONE HCL 0.4 MG/1 ML VIAL/CARP IV PRN (20:43)
[2022-05-29] MEDS: HYDROmorphone INJ 1 MG/ML SYRINGE IV PRN (20:55)
[2022-05-29] MEDS ORDERED: ATORVASTATIN 40 MG TAB PO SCH (21:00)
[2022-05-29] MEDS: PIPERACILLIN/TAZOBACTAM 3.375 GM in DEXTROSE 5% 100 ML IV SCH (21:00)
[2022-05-30] MEDS: HYDROmorphone INJ 1 MG/ML SYRINGE IV PRN ×6 (01:10→16:55)
[2022-05-30] MEDS: PIPERACILLIN/TAZOBACTAM 3.375 GM in DEXTROSE 5% 100 ML IV SCH ×2 (05:33→18:17)
[2022-05-30] MEDS ORDERED: GABAPENTIN 600 MG DOSE PO SCH (06:00)
[2022-05-30] MEDS ORDERED: ceFAZolin 2000MG 2,000 MG/15 ML SYR IV SCH (06:00)
[2022-05-30] MEDS ORDERED: FAMOTIDINE 20 MG TAB PO SCH (06:00)
[2022-05-30] MEDS ORDERED: LACTATED RINGER'S 1,000 ML IV SCH (06:00)
[2022-05-30] MEDS ORDERED: dexAMETHasone 4 MG TAB PO SCH (06:00)
[2022-05-30] MEDS ORDERED: TRANEXAMIC ACID 1,000 MG **IV Pre-op IV SCH (06:00)
[2022-05-30] MEDS ORDERED: TRANEXAMIC ACID 1,000 MG **IV Intra-op IV SCH (06:00)
[2022-05-30] MEDS ORDERED: ORTHO JOINT MIX INFIL SCH (06:00)
[2022-05-30] MEDS ORDERED: ACETAMINOPHEN 500 MG TAB PO SCH (06:00)
[2022-05-30] MEDS ORDERED: Nursing to Pharmacy Communication SCH ×2 (06:15→18:30)
[2022-05-30] MEDS: INSULIN ASPART PER UNIT CHARGE SC SCH ×4 (06:23→20:49)
[2022-05-30] MEDS ORDERED: BUPIVACAINE 0.5 % 5 MG/1 ML PF 10ML VIAL ONE (07:06)
--- NOTE | 2022-05-30 07:36 | Hospitalist Progress Note ---
Date of Service May 30, 2022 Assessment & Plan (1) Prosthetic joint infection: Plan: acute infection, high risk , recent lumbar surgery 04/26/22 L3-S1, evacuation of hematoma 05/08/[address]pt office Dr Latham, pain in right shoulder, Ct shoulder multiloculated gas and fluid seen around the arthroplasty on Daptomycin and Zosyn parenteral medications for pain control Staph suggested by PCR and blood cultures. Intraoperative cultures are currently pending. Consultation to [facility] for further recommendations and continued management intra hospital course (2) Postoperative back pain: Plan: acute on chronic back pain, recent surgery and hemotoma evacuation Progressively getting worse since his latest operation. Concerning for hardware infection given shoulder infection. Will consult his Dr Purcell, orthopedic surgeon to determine if further imaging required vs. waiting final results for blood and intraoperative shoulder cultures. (3) Diabetes mellitus, type 2: Plan: No need to repeat this. Hold metformin basal bolus insulin Novolog: --Goal BSG Range: Low 110 mg/dL, High 140 mg/dL --Correction Factor: 45 mg/dL/unit No carb ratio --BSGs ACHS if eating, q6h if npo (4) CAD (coronary artery disease): Plan: Chronic and stable 2007 x 2 stents (LAD, Diagonal) 2011 (PADMINI D1) hold asprine Restart on aspirin post operatively when ok by orthopedics Continue metoprolol and losartan Restart atorvastatin when off daptomycin chronic stable hypertension (5) Depression: Plan: Chronc stable continue paroxetine (6) GERD (gastroesophageal reflux disease): Plan: chronic stable Continue famotidine 20mg PO BID Plan VTE Prophylaxis - deferred pre-operatively Disposition - admit to med/surg Admission and Anticipated Discharge Date Admission Date: May 29, 2022 Subjective Patient has mild right shoulder pain and back pain. Patient has falls at home due to his "legs giving out "he has eschar's on his knees and feet. Status post lumbar MRI of his spine which is currently pending at time of surgery Called by laboratory initial PCR test the blood cultures are suggesting a gram- positive organism which is not methicillin-resistant Physical Exam Physical Exam: Awake alert appropriate. He has pain in his right shoulder movement pain is back to move around. Card exam is regular without murmurs there is no peripheral stigmata of endocarditis at this time his abdomen is NABS soft and nontender his back is tender to touch there is no fluctuance purulence or erythema his extremities show eschars on his knees and feet he has distal pulses intact as well as sensation Results & Data Results & Data Vital Signs (Past 12 Hours) Vital Signs Temp Pulse Resp BP Pulse Ox O2 Del Method 05/30/22 07:11 98.4 F 96 H 16 135/81 94 Room Air 05/29/22 20:04 100.0 F H 95 H 18 135/70 96 Room Air Laboratory Results Reviewed CBC Reviewed PRP Reviewed coagulation studies Reviewed blood culture PCR showing likely staph methicillin sensitive PG Care Time/CCT Total # of Minutes Spent Total Time Spent with Patient: Total time spent is greater than 50% in coordination of care (as documented) at patient's floor/unit and/or counseling patient: Coding Level of Care Code 01811 SUB INP/OBS CARE 3/50MIN Diagnoses Prosthetic joint infection T84.50XA Postoperative back pain G89.18; M54.9 Diabetes mellitus, type 2 E11.9 CAD (coronary artery disease) I25.10 Depression F32.A GERD (gastroesophageal reflux disease) K21.9
[2022-05-30 07:58] LABS: Basophils # (auto) 0.04 K/uL (0-0.2); Basophils % (auto) 0.3 %; Eosinophils % (auto) 0.8 %; Hematocrit (blood only) 32.5 % (42.0-52.0); Hemoglobin 10.6 g/dl (14.0-18.0); Immature Granulocytes # (auto) 0.27 K/uL (0.01-0.20); Immature Granulocytes % (auto) 2.2 %; Lymphocytes # (auto) 1.21 K/uL (1.2-3.4); Lymphocytes % (auto) 9.8 %; Mean Corpuscular Hemoglobin 29.6 pg (25.0-34.0); Mean Corpuscular Hgb Conc 32.6 g/dL (32.0-36.0); Mean Corpuscular Volume 90.8 fL (80.0-100.0); Monocytes # (auto) 1.54 K/uL (0.11-0.59); Monocytes % (auto) 12.4 %; Neutrophils # (auto) 9.25 K/uL (1.40-6.50); Neutrophils % (auto) 74.5 %; Platelet Count 313 K/uL (130-400); RDW Coefficient of Variation 13.6 % (11.5-14.5); RDW Standard Deviation 45.7 fL (36.4-46.3); Red Blood Count 3.58 M/uL (4.70-6.10); White Blood Count 12.41 K/ul (4.8-10.8)
[2022-05-30] MEDS: PARoxetine HCL 20 MG TAB PO SCH (08:01)
[2022-05-30] MEDS: FAMOTIDINE 20 MG TAB PO SCH ×2 (08:01→20:50)
[2022-05-30] MEDS: METOPROLOL SUCC 25MG EXT REL TAB PO SCH (08:01)
[2022-05-30] MEDS: GABAPENTIN 100 MG CAP PO SCH ×3 (08:01→20:51)
[2022-05-30 08:19] LABS: BUN Creatinine Ratio 10.7 (10-20); Calcium 8.5 mg/dl (8.6-10.3); Creatinine Clr Calc Pharmacy 138.7 ml/min; Est GFR (African American) 118.9 ml/min; Est GFR (Non-African American) 102.5 ml/min; Potassium 4.1 mmol/L (3.5-5.1)
--- NOTE | 2022-05-30 08:28 | Orthopedic Consultation ---
Date of Consultation May 30, 2022 Assessment & Plan (1) Postoperative back pain: This time he scheduled to undergo shoulder surgery today. Would like to obtain an MRI lumbar spine he may ultimately require an I&D lumbar spine however this would be secondary to his shoulder surgery. History of Present Illness Reason for Consultation: Continue postoperative back pain Attending Physician: Joshua Aguayo MD History of Present Illness This is a 56-year-old male who presents last evening with worsening shoulder pain and continued back pain. Is been diagnosed with a right shoulder infection status post total shoulder replacement. Is undergoing surgery today. He continues to note back pain with weakness with standing and walking any distance. Allergies Allergy/AdvReac Type Severity Reaction Status Date / Time shellfish derived Allergy Severe Throat Verified 05/23/22 11:07 swelling tramadol Allergy Mild Hives, Verified 05/23/22 11:07 dizziness, nausea acetaminophen AdvReac Mild Upset Verified 05/23/22 11:07 stomach Home Medications Medication Instructions Recorded Confirmed Type amitriptyline 100 mg tablet 100 mg PO HS 02/16/19 05/29/22 History atorvastatin 80 mg tablet (Lipitor) 80 mg PO HS 02/16/19 05/29/22 History famotidine 20 mg tablet (Pepcid) 20 mg PO BID 02/16/19 05/29/22 History gabapentin 100 mg capsule 100 mg PO TID 02/16/19 05/29/22 History losartan 50 mg tablet (Cozaar) 50 mg PO QAM 02/16/19 05/29/22 History metoprolol succinate 25 mg 25 mg PO QAM 02/23/19 05/29/22 History tablet,extended release 24 hr (Toprol XL) metformin 1,000 mg tablet 1,000 mg PO BID 02/29/20 05/29/22 History melatonin 10 mg tablet 10 mg PO HS 09/07/21 05/23/22 History oxycodone 10 mg tablet 10 mg PO Q6H PRN pain #30 tabs 10/31/21 05/29/22 Rx paroxetine HCl 30 mg tablet (Paxil) 30 mg PO QAM 04/05/22 05/29/22 History cyclobenzaprine 10 mg tablet 10 mg PO TID PRN muscle spasm #15 05/25/22 05/29/22 Rx tabs lidocaine 5 % topical patch 1 patch transdermal QAM #10 ea 05/25/22 Rx lidocaine 5 % topical patch 1 patch topical DAILY #15 ea 05/25/22 Rx (Lidoderm) amoxicillin 500 mg tablet 500 mg PO TID #90 tabs 05/28/22 05/29/22 Rx Patient History Medical History CAD (coronary artery disease) 2007 x 2 stents (LAD, Diagonal) 2012 (PADMINI D1) cardiac stents x3 total (most recent stent 2011) No recent issues Degenerative disc disease s/p cervical fusion Depression Diabetes mellitus, type 2 NIDDM GERD (gastroesophageal reflux disease) controlled, stable per pt Hyperlipidemia Hypertension controlled, stable per pt Myocardial Infarction 2012 > stents SIDDHARTHA (obstructive sleep apnea) pt states the last sleep study was negative Surgical History Difficult intubation Right reverse total shoulder replacement (10/08/21): Glidescope#3, ETT 7.5 + PNB at [facility]. *Difficult airway* per anesthesia record comments. No issues noted per post-op anesthesia progress note. Fusion of spine ACDF C6-C7, C5 corpectomy: 08/08/10: MAC#4, ETT 7.5 at [facility] History of cardiac cath 2007 x 2 stents (LAD, Diagonal) 2011 (PADMINI D1) History of colonoscopy History of esophageal dilatation History of esophagogastroduodenoscopy (EGD) History of hip surgery right hip (as a child) History of lumbar fusion 10/04/2020: elective glidescope 3. ETT 8.0. History of repair of rotator cuff right History of reverse total replacement of right shoulder joint Right reverse total shoulder replacement (10/08/21): Glidescope#3, ETT 7.5 + PNB at [facility]. *Difficult airway* per anesthesia record comments. No issues noted per post-op anesthesia progress note. History of tooth extraction History of total knee replacement right knee S/P arthroscopy of right shoulder 03/18/19. 02/29/20. LMA#5. Family History Father Family history of diabetes mellitus Other No family history of adverse response to anesthesia Social History Smoking Status: Current every day smoker Tobacco Type: Cigarettes Second Hand Exposure: No; Do You Dip or Chew Tobacco: No; Tobacco Cessation Education Requested by Patient: No Hx Alcohol Use: Yes Alcohol type: beer Hx Substance Use: No Preferred Language: Frisian Communication Ability: Effective Emt B Required: No Beliefs That Will Affect Care: None marital status: Current Living Situation: Spouse Other Information That Helps Us Care for You: No Feels Safe at Home: Yes Safety Concerns: Feels Safe At This Time Assistive Devices: Walker and Wheelchair Physical Exam Physical Exam: On exam he does have gross erythema to the right shoulder along the incision. Is tender palpation. He is regional strength detailed testing lower extremities. He does have difficulty with sitting up secondary to back pain. Results & Data Vital Signs (Past 12 Hours) Vital Signs Temp Pulse Resp BP Pulse Ox O2 Del Method 05/30/22 07:11 36.9 C 96 H 16 135/81 94 Room Air
[2022-05-30] MEDS ORDERED: LORazepam 2 MG/1 ML VIAL IV STA (09:25)
[2022-05-30] MEDS ORDERED: ONDANSETRON INJ 2 MG/ML 2 ML VIAL ONE ×2 (10:18→15:28)
[2022-05-30] MEDS ORDERED: MIDAZOLAM HCL 1 MG/ML 2ML VIAL ONE (10:18)
[2022-05-30] MEDS ORDERED: fentaNYL citrate PF 100 MCG/2 ML VIAL ONE (10:18)
[2022-05-30] MEDS ORDERED: PROPOFOL IV EMULSION 10 MG/ML 20 ML VIAL IV ONE (10:18)
[2022-05-30] MEDS ORDERED: LIDOCAINE 2% MPF LOCAL 5 ML VIAL ONE (10:18)
[2022-05-30 11:02] LABS: A calco-baum cmplx NotReported Not Detected (NotDetected); Bact fragilis Not Reported Not Detected (NotDetected); C auris Not Reported Not Detected (NotDetected); Calbicans Not Reported Not Detected (NotDetected); Candida glabrata Not Reported Not Detected (NotDetected); Candida krusei Not Reported Not Detected (NotDetected); Cneoformans/gatti Not Reported Not Detected (NotDetected); Cparapsilosis Not Reported Not Detected (NotDetected); Ctropicalis Not Reported Not Detected (NotDetected); E cloacae compx Not Reported Not Detected (NotDetected); Efaecalis Not Reported Not Detected (NotDetected); Efaecium Not Reported Not Detected (NotDetected); Enterobacterales Not Reported Not Detected (NotDetected); Escherichia coli Not Reported Not Detected (NotDetected); H influenzae Not Reported Not Detected (NotDetected); K aerogenes Not Reported Not Detected (NotDetected); Koxytoca Not Reported Not Detected (NotDetected); Kpneumoniae grp Not Reported Not Detected (NotDetected); Lmonocyt Not Reported Not Detected (NotDetected); N meningitidis Not Reported Not Detected (NotDetected); P aeruginosa Not Reported Not Detected (NotDetected); Proteus spp Not Reported Not Detected (NotDetected); Salmonella spp Not Reported Not Detected (NotDetected); Smarcescens Not Reported Not Detected (NotDetected); Staph lugdunensis Not Reported Not Detected (NotDetected); Staph spp. Not Reported DETECTED (NotDetected); Staphaureus Not Reported DETECTED (NotDetected); Staphepi Not Reported Not Detected (NotDetected); Staphylococcus spp. DETECTED (NotDetected); Stenmaltophilia Not Reported Not Detected (NotDetected); Strep agal(GrpB) Not Reported Not Detected (NotDetected); Strep pneum Not Reported Not Detected (NotDetected); Strep pyog (GrpA) Not Reported Not Detected (NotDetected); Strep spp Not Reported Not Detected (NotDetected); mecAC+MREJ Resistant Gene MRSA Not Detected (NotDetected)
[2022-05-30] MEDS ORDERED: DAKIN'S SOLN 0.5% FULL STRENGTH 473ML BTL EXT ONE (11:55)
--- NOTE | 2022-05-30 11:55 | Orthopedic Consultation ---
Date of Service May 30, 2022 Assessment & Plan (1) Prosthetic joint infection: We will take him to the operating room today for a single-stage revision of his right shoulder. Postoperatively he will likely require at least 6 weeks of IV antibiotics. He understands the risk, benefits, alternatives procedure elected proceed. Questions were answered and consents were signed. Time was spent around the procedure and postop expectations. We will also consult Dr. Purcell to take a look at his back. History of Present Illness Reason for Consultation: Right shoulder infection. Requesting Physician: . Attending Physician: Joshua Aguayo MD Kareem is a pleasant 56-year-old male who underwent a right reverse shoulder replacement in October 2021. He was doing very well until about 6 days ago. He began having significant right shoulder pain. He came to my office. Clinically he examines like an acute infection of his right shoulder. I sent him for CT scan and blood work. Unfortunately the studies in the lab values were indicative of infection. He is also complained of lower back pain. He just had a lumbar surgery done a few weeks ago. He had to return to the operating room for an evacuation of a hematoma of his lumbar spine. He then noticed this severe increase in shoulder pain after that second spinal procedure. He was admitted directly from my office to the hospitalist service. We plan to do a 1 stage revision of his right shoulder tomorrow.. Allergies Allergy/AdvReac Type Severity Reaction Status Date / Time shellfish derived Allergy Severe Throat Verified 05/23/22 11:07 swelling tramadol Allergy Mild Hives, Verified 05/23/22 11:07 dizziness, nausea acetaminophen AdvReac Mild Upset Verified 05/23/22 11:07 stomach Home Medications Medication Instructions Recorded Confirmed Type amitriptyline 100 mg tablet 100 mg PO HS 02/16/19 05/29/22 History atorvastatin 80 mg tablet (Lipitor) 80 mg PO HS 02/16/19 05/29/22 History famotidine 20 mg tablet (Pepcid) 20 mg PO BID 02/16/19 05/29/22 History gabapentin 100 mg capsule 100 mg PO TID 02/16/19 05/29/22 History losartan 50 mg tablet (Cozaar) 50 mg PO QAM 02/16/19 05/29/22 History metoprolol succinate 25 mg 25 mg PO QAM 02/23/19 05/29/22 History tablet,extended release 24 hr (Toprol XL) metformin 1,000 mg tablet 1,000 mg PO BID 02/29/20 05/29/22 History melatonin 10 mg tablet 10 mg PO HS 09/07/21 05/23/22 History oxycodone 10 mg tablet 10 mg PO Q6H PRN pain #30 tabs 10/31/21 05/29/22 Rx paroxetine HCl 30 mg tablet (Paxil) 30 mg PO QAM 04/05/22 05/29/22 History cyclobenzaprine 10 mg tablet 10 mg PO TID PRN muscle spasm #15 05/25/22 05/29/22 Rx tabs lidocaine 5 % topical patch 1 patch transdermal QAM #10 ea 05/25/22 Rx lidocaine 5 % topical patch 1 patch topical DAILY #15 ea 05/25/22 Rx (Lidoderm) amoxicillin 500 mg tablet 500 mg PO TID #90 tabs 05/28/22 05/29/22 Rx Past Med/Surg History Medical History CAD (coronary artery disease) 2007 x 2 stents (LAD, Diagonal) 2011 (PADMINI D1) cardiac stents x3 total (most recent stent 2011) No recent issues Degenerative disc disease s/p cervical fusion Depression Diabetes mellitus, type 2 NIDDM GERD (gastroesophageal reflux disease) controlled, stable per pt Hyperlipidemia Hypertension controlled, stable per pt Myocardial Infarction 2012 > stents SIDDHARTHA (obstructive sleep apnea) pt states the last sleep study was negative Surgical History Difficult intubation Right reverse total shoulder replacement (10/08/21): Glidescope#3, ETT 7.5 + PNB at [facility]. *Difficult airway* per anesthesia record comments. No issues noted per post-op anesthesia progress note. Fusion of spine ACDF C6-C7, C5 corpectomy: 08/08/10: MAC#4, ETT 7.5 at [facility] History of cardiac cath 2007 x 2 stents (LAD, Diagonal) 2011 (PADMINI D1) History of colonoscopy History of esophageal dilatation History of esophagogastroduodenoscopy (EGD) History of hip surgery right hip (as a child) History of lumbar fusion 10/04/2020: elective glidescope 3. ETT 8.0. History of repair of rotator cuff right History of reverse total replacement of right shoulder joint Right reverse total shoulder replacement (10/08/21): Glidescope#3, ETT 7.5 + PNB at [facility]. *Difficult airway* per anesthesia record comments. No issues noted per post-op anesthesia progress note. History of tooth extraction History of total knee replacement right knee S/P arthroscopy of right shoulder 03/18/19. 02/29/20. LMA#5. 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 Physical Exam Physical examination of his shoulder shows he has almost no motion. He is significant pain with any range of motion of his shoulder. There is a large red area anteriorly. The incision is fully closed. Constitutional WD/WN, vitals as above Eyes PERRL, conjunctivae normal, anicteric sclerae ENMT external ear and nose normal, oropharynx normal Neck trachea midline, no thyromegaly Respiratory normal respiratory effort, lungs clear to auscultation Cardiovascular RRR, no murmur, no edema Gastrointestinal (Abdomen) normal bowel sounds, soft, nontender, no hepatosplenomegaly Skin no rashes, warm and dry Psychiatric A+Ox3, euthymic affect Results & Data Results & Data Laboratory Results . Diagnostic Findings CT scan of the right shoulder show signs of infection with small gas pockets and a large abscess.. PG Care Time/CCT Total # of Minutes Spent Total Time Spent with Patient: Total time spent is greater than 50% in coordination of care (as documented) at patient's floor/unit and/or counseling patient: Coding Level of Care Code 21800 IN/OBS CONSULT LVL 4,60M (57 - DECISION FOR SURGERY) Diagnoses Prosthetic joint infection T84.50XA
--- NOTE | 2022-05-30 11:55 | History & Physical Bridge Note ---
Date of Service May 30, 2022 History & Physical Bridge Note I have examined the patient, reviewed the History & Physical and in the interval since the performance of the History & Physical I have noted the following changes of clinical significance: no changes noted
--- NOTE | 2022-05-30 12:02 | Magnetic Resonance Report ---
MR lumbar spine wo con CLINICAL HISTORY: post op back pain TECHNIQUE: Multiplanar sequences through the lumbar spine were obtained, without intravenous contrast . Comparison: Comparison is made to MRI lumbar spine 05/23/2022 FINDINGS: Surgical fixation hardware is seen spanning L3-L5. Posterior decompression is noted. The postsurgical fluid collection is somewhat enlarged from prior exam, measuring 94 x 28 mm compared to 81 x 17 mm. Intracanicular fluid collection seen in prior exam at L2-L3 is now noted to be in continuity with a p ostsurgical collection and appears somewhat less conspicuous than on the prior exam. No new fluid col lections are seen. There is up to moderate canal stenosis at L2-L3 without significant neuroforaminal stenosis, evaluati on is limited by susceptibility artifact. L2-L3 canal size has significantly increased from 7 to 9 mm . The spinal ligaments are intact, without evidence of disruption or abnormal signal intensity. The s fela cord is normal in signal intensity and there is no evidence of cord contusion. IMPRESSION: 1. Possible mild increase in size of previously noted postsurgical fluid collection which may repres ent a seroma, however sterility cannot be assessed. 2. Previously noted epidural fluid collection at L2-L3 is less conspicuous and noted to be in contin uity with the postoperative collection. Canal patency has significantly improved. ACT 112: Negative or not required by law. Electronically signed by: Be Armando M.D. 05/30/2022 12:00 PM
[2022-05-30] MEDS ORDERED: ceFAZolin 330 MG/ML 1 GM VIAL ONE (12:36)
[2022-05-30] MEDS ORDERED: KETAMINE 50 MG/5 ML SYRINGE ONE (13:28)
[2022-05-30] MEDS ORDERED: HYDROmorphone INJ 2 MG/ML SYR/VIAL ONE (13:42)
[2022-05-30] MEDS ORDERED: ROCURONIUM BROMIDE 10 MG/ML 5 ML VIAL IV ONE ×3 (14:00→14:56)
[2022-05-30] MEDS ORDERED: PHENYLEPHRINE HCL 10 MG/ML VIAL ONE (14:22)
[2022-05-30] MEDS ORDERED: FLUMAZENIL 0.1 MG/1 ML 10 ML VIAL IV PRN (14:42)
[2022-05-30] MEDS ORDERED: ONDANSETRON INJ 2 MG/ML 2 ML VIAL IV PRN (14:42)
[2022-05-30] MEDS ORDERED: ATROPINE SULFATE 0.1 MG/ML 10ML SYR IV PRN (14:42)
[2022-05-30] MEDS ORDERED: NALOXONE HCL 0.4 MG/1 ML VIAL/CARP IV PRN ×2 (14:42→17:27)
[2022-05-30] MEDS ORDERED: PROMETHAZINE HCL 12.5 MG in SODIUM CHLORIDE 0.9% 50 ML IV PRN (14:42)
[2022-05-30] MEDS ORDERED: SUGAMMADEX SODIUM 200 MG/2 ML VIAL IV ONE (15:28)
[2022-05-30] MEDS ORDERED: BACITRACIN OINT 15 GM TUBE ONE (15:34)
--- NOTE | 2022-05-30 15:38 | Operative Report ---
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 I identified the patient and participated in the time-out.: Yes Procedure Operation Date: 05/30/22 13:00 Actual Procedures p One stage revision of right Reverse Total Shoulder with component Removal, Irrigation and Debridement, and reimplantation of right Reverse Total Shoulder Arthroplasty(Right) - Pratik Latham DO Surgeon Pratik Latham DO Respiratory Physician Pratik Barron PA-C Estimated Blood Loss 150 Findings Consistent with Post-Op Diagnosis Specimens Swab culture and tissue culture Description of Procedure On May 30, 2022 Kareem was brought down from his hospital room to the preoperative holding area. The operative extremity identified and side. He was taken back to the operating room and laid on the table in supine position. He was put under general anesthesia. He was put into the beachchair position. The right shoulder was prepped and draped in sterile fashion. A timeout was done. The patient and the operative extremity was properly identified. The previous incision was opened back up. Dissection was taken down through the deltopectoral interval. There was no signs of infection until I got deep to the shoulder. There was a pseudocapsule that has formed around the shoulder and that was opened up. There was a large amount of purulent discharge. Cultures were taken. The wound was irrigated. The humerus was then dislocated. The humeral tray was then removed. The humeral stem was then extracted from the canal. The glenoid was then exposed. The glenosphere was then removed and the glenoid baseplate was removed. Once all components were removed, significant time was spent doing a meticulous debridement of all surrounding soft tissues. Any pathologic appearing tissue was debrided back. Significant time was spent on this step. Once the wound was properly debrided it was irrigated with 3 L of normal saline solution. A 3-minute dilute Betadine lavage was then done. The wound was once again irrigated with 3 L of normal saline solution. A 3-minute full strength Dakin's solution lavage was then done. The shoulder was once again irrigated with 3 L of normal saline solution with Ancef. The wound was then loosely closed with a #2 nylon suture. The table we were using was cleaned and all instruments were put away. All drapes were taken down. All gown and gloves were removed. Attention was turned to resetting up the operating room for reimplantation of the components. The surgeons all rescrubbed. All new drapes were placed. A new table was set up with the implants. The nylon sutures were removed and the wound was once again irrigated. The glenoid was then exposed. There was not much bone loss when I removed the glenoid baseplate. A Biomet comprehensive 25 mm small augment baseplate was then impacted into place. A central screw was placed followed by superior and inferior locking screws. A 40 mm eccentric glenosphere was then placed. The surrounding soft tissues were injected with 100 cc of an orthopedic pain control cocktail. The proximal humerus was then exposed. Sequential broaching up to a size 10 broach was done. A standard humeral tray with a +3 retentive bearing was trialed. The shoulder was then reduced. The shoulder was brought through full range of motion and felt to be stable. The shoulder was then dislocated. The trials were removed. The final size 10 comprehensive micro stem was then impacted into place. The +3 retentive humeral bearing was then snapped onto the standard humeral tray. The standard humeral tray was then impacted onto the humeral stem. The shoulder was reduced. The shoulder was brought through full range of motion and felt to be stable. The wound was once again irrigated. 2 drains were placed. The deltopectoral interval was closed with #0 PDS suture. The skin was closed with 2-0 Vicryl and virgil. He was then placed in a soft dressing. He was then extubated and bennett sferred to a litter. He was taken to the postanesthesia care unit in stable condition. He tolerated the procedure well. To note, when I was extracting the stem I was using a slap hammer. The stem was well fixated and difficult to remove. When the stem finally did break free it did so suddenly. My natural reaction was to bring my hand back down. When this happened I thought I had the side of the head support with the extracted implant. When we were changing drapes it appeared that I had struck the top of his head. There was a small laceration and a little bit of bleeding in the area. Myself and the nurses excess suspect this closely. We did not feel a suture was needed. It was cleaned up at the end of the case and written in an incident report. Pratik Barron PA-C, was present for the entire procedure. He was critical for patient positioning, prepping, draping, retraction exposure, wound closure and application of sterile dressing. I attest to the content of the Intraoperative Record and any orders documented therein. Any exceptions are noted below.
[2022-05-30] MEDS: fentaNYL citrate PF 100 MCG/2 ML VIAL IV PRN ×4 (16:20→16:35)
--- NOTE | 2022-05-30 16:56 | XRay Report ---
XR shoulder RT min 2V routine CLINICAL HISTORY: Post shoulder surgery COMPARISON: Right shoulder radiographs October 08, 2021. Right shoulder CT May 29, 2022. FINDINGS: Alignment of the reverse total right shoulder arthroplasty is anatomic. There is no peripr osthetic fracture or lucency. Surgical drains and skin virgil are noted. There are no unexpected rad iopaque foreign bodies. IMPRESSION: Intact reverse total right shoulder arthroplasty. No periprosthetic fracture or lucency. No unexpected radiopaque bodies. ACT 112: Negative or not required by law. Electronically signed by: Maykel Jackson M.D. 05/30/2022 4:54 PM
[2022-05-30] MEDS ORDERED: bisacodyL 10 MG SUPP PR PRN (17:27)
[2022-05-30] MEDS ORDERED: MAGNESIUM HYDROXIDE SUSP 30 ML UDC PO PRN (17:27)
[2022-05-30] MEDS ORDERED: METOCLOPRAMIDE HCL INJ 5 MG/ML 2 ML VIAL IV PRN (17:27)
[2022-05-30] MEDS: DAPTOmycin 525 MG in SYRINGE 0 ML IV SCH (17:49)
[2022-05-30] MEDS: SODIUM CHLORIDE 0.9% 1000ML 1,000 ML IV SCH (17:49)
--- NOTE | 2022-05-30 18:27 | Anesthesiology Progress Note ---
Date of Service May 30, 2022 Anesthesia Post Procedure Vital Signs Vital Signs: Temp Pulse Pulse Resp BP Pulse Ox O2 Del Method 05/30/22 18:20 36.4 C L 82 15 148/93 H 98 Nasal Cannula 05/30/22 17:57 36.4 C L 80 16 137/86 97 Nasal Cannula 05/30/22 17:28 36.3 C L 85 16 145/86 H 96 Nasal Cannula 05/30/22 16:35 91 H 20 152/95 H 99 Oxymask 05/30/22 16:25 93 H 23 150/81 H 96 Oxymask 05/30/22 16:55 36.6 C 93 H 20 142/85 H 89 L Room Air 05/30/22 16:45 36.6 C 94 H 20 149/86 H 98 Room Air 05/30/22 16:15 94 H 19 148/89 H 99 Oxymask 05/30/22 16:05 96 H 15 145/93 H 99 Oxymask 05/30/22 15:55 99 H 22 130/93 100 Oxymask 05/30/22 15:49 36.1 C L 101 H 10 L 151/84 H 94 Oxymask 05/30/22 11:36 36.7 C 89 20 131/75 93 Room Air 05/30/22 07:11 36.9 C 96 H 16 135/81 94 Room Air 05/29/22 20:04 37.8 C H 95 H 18 135/70 96 Room Air O2 Flow Rate 05/30/22 18:20 2 05/30/22 17:57 2 05/30/22 17:28 2 05/30/22 16:35 3 05/30/22 16:25 3 05/30/22 16:55 05/30/22 16:45 05/30/22 16:15 3 05/30/22 16:05 3 05/30/22 15:55 5 05/30/22 15:49 7 05/30/22 11:36 05/30/22 07:11 05/29/22 20:04 Pain Intensity Right Shoulder: Pain Intensity: 8 Lower Back: Pain Intensity: 8 Right Foot: Pain Intensity: 8 Transfer of Care Handoff Completed per policy Notes Mental Status: alert / awake / arousable Patient Amnestic to Procedure: Yes Nausea / Vomiting: adequately controlled Pain: adequately controlled Airway Patency, RR, SpO2: stable & adequate BP & HR: stable & adequate Hydration State: stable & adequate Anesthetic Complications: no major complications apparent Notes: Patient did sustain a small scalp laceration during the case from surgical equipment. He did not complain of any head pain in PACU and the laceration was not bleeding. I did not discuss the laceration with the patient in PACU to avoid giving misinformation as I did not take over care of the case until after the incident. The surgeon had stated that he planned to discuss with the patient post-operatively and in the absence of any complaints or symptoms, we will leave that discussion to him.
[2022-05-30] MEDS: metFORMIN HCL 500 MG TAB PO SCH (18:42)
[2022-05-30] MEDS: oxyCODONE HCL IR 5 MG TAB (IMMEDIATE RELEASE) PO PRN (18:46)
[2022-05-30] MEDS: MELATONIN 3 MG TAB PO SCH (20:49)
[2022-05-30] MEDS: DOCUSATE SODIUM 100 MG CAP PO SCH (20:50)
[2022-05-30] MEDS: SENNA 8.6 MG TAB PO SCH (20:50)
[2022-05-30] MEDS: AMITRIPTYLINE HCL 100 MG TAB PO SCH (20:50)
[2022-05-31] MEDS: PIPERACILLIN/TAZOBACTAM 3.375 GM in DEXTROSE 5% 100 ML IV SCH ×2 (02:00→12:36)
[2022-05-31] MEDS: oxyCODONE HCL IR 5 MG TAB (IMMEDIATE RELEASE) PO PRN ×3 (03:25→21:06)
[2022-05-31] MEDS: SODIUM CHLORIDE 0.9% 1000ML 1,000 ML IV SCH (04:38)
[2022-05-31 06:18] LABS: Basophils # (auto) 0.03 K/uL (0-0.2); Basophils % (auto) 0.2 %; Hemoglobin 10.4 g/dl (14.0-18.0); Immature Granulocytes % (auto) 1.3 %; Mean Corpuscular Hemoglobin 30.1 pg (25.0-34.0); Mean Corpuscular Hgb Conc 33.5 g/dL (32.0-36.0); Mean Corpuscular Volume 89.9 fL (80.0-100.0); Monocytes # (auto) 0.67 K/uL (0.11-0.59); Monocytes % (auto) 4.2 %; Neutrophils # (auto) 14.19 K/uL (1.40-6.50); Neutrophils % (auto) 89.3 %; Platelet Count 333 K/uL (130-400); RDW Coefficient of Variation 13.2 % (11.5-14.5); RDW Standard Deviation 43.9 fL (36.4-46.3); Red Blood Count 3.45 M/uL (4.70-6.10); White Blood Count 15.89 K/ul (4.8-10.8)
[2022-05-31 06:29] LABS: BUN Creatinine Ratio 21.7 (10-20); Calcium 8.2 mg/dl (8.6-10.3); Creatinine Clr Calc Pharmacy 150.7 ml/min; Est GFR (Non-African American) 106.1 ml/min; Potassium 4.4 mmol/L (3.5-5.1)
[2022-05-31] MEDS: ACETAMINOPHEN 325 MG TAB PO PRN (07:31)
[2022-05-31] MEDS: PARoxetine HCL 20 MG TAB PO SCH (08:28)
[2022-05-31] MEDS: MULTIVITAMIN TAB PO SCH (08:28)
[2022-05-31] MEDS: DOCUSATE SODIUM 100 MG CAP PO SCH ×2 (08:30→21:40)
[2022-05-31] MEDS: GABAPENTIN 100 MG CAP PO SCH ×3 (08:31→21:38)
[2022-05-31] MEDS: FAMOTIDINE 20 MG TAB PO SCH ×2 (08:31→21:39)
[2022-05-31] MEDS: metFORMIN HCL 500 MG TAB PO SCH (08:38)
[2022-05-31] MEDS: METOPROLOL SUCC 25MG EXT REL TAB PO SCH (08:40)
[2022-05-31] MEDS: LOSARTAN POTASSIUM 50 MG TAB PO SCH ×2 (08:40→12:35)
--- NOTE | 2022-05-31 08:53 | Anesthesiology Consultation ---
Date of Service May 31, 2022 Assessment & Plan (1) Encounter for pre-operative examination: Chart Review Chart Review: Acceptable Risk for Surgery and Patient NOT seen in Pre Admission Testing Consults Requested none History Surgery Operation Date: 05/30/22 13:00 Proposed Procedures p Infection Right Reverse Total Shoulder Arthroplasty - Pratik Latham DO Operation Date: 05/31/22 10:30 Proposed Procedures p Incision and Drainage Lumbar - Mynor Purcell DO Height/Weight Height: 5 ft 11 in Weight: 109.9 kg Allergies Allergy/AdvReac Type Severity Reaction Status Date / Time shellfish derived Allergy Severe Throat Verified 05/23/22 11:07 swelling tramadol Allergy Mild Hives, Verified 05/23/22 11:07 dizziness, nausea acetaminophen AdvReac Mild Upset Verified 05/23/22 11:07 stomach Medications Home Medications Medication Instructions Recorded Confirmed Last Taken amitriptyline 100 mg tablet 100 mg PO HS 02/16/19 05/29/22 05/28/22 atorvastatin 80 mg tablet (Lipitor) 80 mg PO HS 02/16/19 05/29/22 05/28/22 famotidine 20 mg tablet (Pepcid) 20 mg PO BID 02/16/19 05/29/22 05/29/22 gabapentin 100 mg capsule 100 mg PO TID 02/16/19 05/29/22 05/29/22 losartan 50 mg tablet (Cozaar) 50 mg PO QAM 02/16/19 05/29/22 05/29/22 metoprolol succinate 25 mg 25 mg PO QAM 02/23/19 05/29/22 05/29/22 tablet,extended release 24 hr (Toprol XL) metformin 1,000 mg tablet 1,000 mg PO BID 02/29/20 05/29/22 05/29/22 melatonin 10 mg tablet 10 mg PO HS 09/07/21 05/23/22 05/04/22 oxycodone 10 mg tablet 10 mg PO Q6H PRN pain #30 tabs 10/31/21 05/29/22 05/29/22 paroxetine HCl 30 mg tablet (Paxil) 30 mg PO QAM 04/05/22 05/29/22 05/29/22 cyclobenzaprine 10 mg tablet 10 mg PO TID PRN muscle spasm #15 05/25/22 05/29/22 05/29/22 tabs lidocaine 5 % topical patch 1 patch transdermal QAM #10 ea 05/25/22 Unknown lidocaine 5 % topical patch 1 patch topical DAILY #15 ea 05/25/22 Unknown (Lidoderm) amoxicillin 500 mg tablet 500 mg PO TID #90 tabs 05/28/22 05/29/22 05/29/22 Active Medications Generic Name Dose Route Start Last Admin Trade Name Freq PRN Reason Stop Dose Admin Acetaminophen 650 mg 05/29/22 20:43 05/31/22 07:31 Acetaminophen 325 Mg Tab PO 06/28/22 14:58 650 mg Q4H PRN Administration pain (1-4)/fever Amitriptyline HCl 100 mg 05/29/22 21:00 05/30/22 20:50 Amitriptyline Hcl 100 Mg Tab PO 06/28/22 20:59 100 mg HS LATOYA Administration Docusate Sodium 100 mg 05/30/22 21:00 05/31/22 08:30 Docusate Sodium 100 Mg Cap PO 06/29/22 20:59 100 mg BID LATOYA Administration Famotidine 20 mg 05/29/22 21:00 05/31/22 08:31 Famotidine 20 Mg Tab PO 06/28/22 20:59 20 mg BID LATOYA Administration Gabapentin 100 mg 05/29/22 21:00 05/31/22 08:31 Gabapentin 100 Mg Cap PO 06/28/22 20:59 100 mg TID LATOYA Administration Hydromorphone HCl 1 mg 05/29/22 20:42 05/30/22 09:26 Hydromorphone Inj 1 Mg/Ml Syringe IV 06/12/22 20:41 1 mg Q4H PRN Administration Pain (8-10) Daptomycin 525 mg/ Syringe 10.5 mls @ 5.25 mls/min 05/29/22 17:30 05/30/22 17:49 IV 07/10/22 17:29 5.25 mls/min Q24H LATOYA Administration Protocol Piperacillin Sod/Tazobactam 115 mls @ 28.75 mls/hr 05/29/22 22:00 05/31/22 06:00 Sod 3.375 gm/ Dextrose IV 07/10/22 21:59 Infused Q8H LATOYA Infusion Protocol Insulin Aspart 0 units 05/30/22 21:00 05/30/22 20:49 Insulin Aspart Per Unit Charge SC 06/29/22 20:59 4 units ACHS LATOYA Administration Losartan Potassium 50 mg 05/31/22 09:00 05/31/22 08:40 Losartan Potassium 50 Mg Tab PO 06/30/22 08:59 50 mg QAM LATOYA Administration Melatonin 9 mg 05/29/22 21:00 05/30/22 20:49 Melatonin 3 Mg Tab PO 06/28/22 20:59 9 mg HS LATOYA Administration Metformin HCl 1,000 mg 05/30/22 18:30 05/31/22 08:38 Metformin Hcl 500 Mg Tab PO 06/29/22 18:29 Not Given BIDM LATOYA Metoprolol Succinate 25 mg 05/30/22 09:00 05/31/22 08:40 Metoprolol Succ 25mg Ext Rel Tab PO 06/29/22 08:59 25 mg QAM LATOYA Administration Multivitamins 1 tab 05/31/22 09:00 05/31/22 08:28 Multivitamin Tab PO 06/30/22 08:59 1 tab QAM LATOYA Administration Oxycodone HCl 10 mg 05/30/22 17:27 05/31/22 03:25 Oxycodone Hcl Ir 5 Mg Tab (Immediate Release) PO 06/13/22 17:26 10 mg Q6H PRN Administration pain Paroxetine HCl 30 mg 05/30/22 09:00 05/31/22 08:28 Paroxetine Hcl 20 Mg Tab PO 06/29/22 08:59 30 mg QAM LATOYA Administration Sennosides 17.2 mg 05/30/22 21:00 05/30/22 20:50 Senna 8.6 Mg Tab PO 06/29/22 20:59 17.2 mg HS LATOYA Administration NPO Date Last Intake of Fluids: 05/29/22 Time Last Intake of Fluids: 23:00 Date Last Intake of Solids: 05/28/22 Time Last Intake of Solids: 19:00 Past Medical History Medical History CAD (coronary artery disease) 2006 x 2 stents (LAD, Diagonal) 2011 (PADMINI D1) cardiac stents x3 total (most recent stent 2011) No recent issues Degenerative disc disease s/p cervical fusion Depression Diabetes mellitus, type 2 NIDDM GERD (gastroesophageal reflux disease) controlled, stable per pt Hyperlipidemia Hypertension controlled, stable per pt Myocardial Infarction 2012 > stents SIDDHARTHA (obstructive sleep apnea) pt states the last sleep study was negative Past Family History Family History Father Family history of diabetes mellitus Other No family history of adverse response to anesthesia Past Surgical History Surgical History Difficult intubation Right reverse total shoulder replacement (10/08/21): Glidescope#3, ETT 7.5 + PNB at [facility]. *Difficult airway* per anesthesia record comments. No issues noted per post-op anesthesia progress note. Fusion of spine ACDF C6-C7, C5 corpectomy: 08/08/10: MAC#4, ETT 7.5 at [facility] History of cardiac cath 2006 x 2 stents (LAD, Diagonal) 2011 (PADMINI D1) History of colonoscopy History of esophageal dilatation History of esophagogastroduodenoscopy (EGD) History of hip surgery right hip (as a child) History of lumbar fusion 10/04/2020: elective glidescope 3. ETT 8.0. History of repair of rotator cuff right History of reverse total replacement of right shoulder joint Right reverse total shoulder replacement (10/08/21): Glidescope#3, ETT 7.5 + PNB at [facility]. *Difficult airway* per anesthesia record comments. No issues noted per post-op anesthesia progress note. History of tooth extraction History of total knee replacement right knee S/P arthroscopy of right shoulder 03/18/19. 02/29/20. LMA#5. Social History Smoking Status: Current every day smoker tobacco type: cigarettes Do You Dip or Chew Tobacco: No Hx Alcohol Use: Yes Alcohol type: beer alcohol intake frequency: a few times a month Hx Substance Use: No substance use type: does not use Physical Exam Vital Signs Last Vital Signs Temp 36.5 C 05/31/22 07:30 Pulse 70 05/31/22 07:30 Resp 16 05/31/22 07:30 BP 124/82 05/31/22 07:30 Pulse Ox 95 05/31/22 07:30 O2 Del Method Nasal Cannula 05/31/22 07:30 O2 Flow Rate 2 05/31/22 07:30 Testing Laboratory Results 05/31/22 05:58 05/31/22 05:58 PT 13.0 Seconds (9.0-12.0) H 05/29/22 16:19 INR 1.2 (0.9-1.1) H 05/29/22 16:19 APTT 27.1 Seconds (21.0-31.0) 05/29/22 16:19 Blood Type A Positive 05/30/22 07:38 Antibody Screen NEGATIVE 05/30/22 07:38 05/29/22 16:19 Aerobic Blood Culture - Preliminary Blood Staphylococcus species Anaerobic Blood Culture - Preliminary No growth in Anaerobic bottle after 24 hours. 05/30/22 13:44 Gram Stain - Final Shoulder,Right 05/30/22 13:44 Gram Stain - Final Shoulder,Right 05/29/22 16:19 Aerobic Blood Culture - Preliminary Blood No growth in Aerobic bottle after 24 hours. Anaerobic Blood Culture - Preliminary No growth in Anaerobic bottle after 24 hours. 05/31/22 08:01 POC Glucose 166 H Other Testing Testing Electrocardiogram Date: 09/18/21 NSR, rate 82 bpm Chest X-Ray Date: 05/05/22 FINDINGS: No pneumothorax. No pleural effusions. No new focal lung consolidations to suggest pneumonia. No evidence for pulmonary edema. The heart remains normal in size. Cervical spinal fusion hardware and a right shoulder prosthesis are noted. IMPRESSION: No acute process. Echocardiogram Date: 09/22/20 EF 50% Severe hypokinesis of the mid-distal anterior and mid-distal anterolateral flynn and basal inferoseptum and basal inferior wall Abnormal regional strain values in the mid-distal anterior and mid-distal anterolateral flynn and basal inferoseptum Mild cLVH No significant valvular pathology Cervical Spine Date: 05/22/21 Cervical MRI FINDINGS: Cervical spine: Vertebral body height and alignment is maintained throughout the cervical spine. There is extensive postoperative change from anterior fusion seen at C4-C7. There is associated straightening of cervical lordosis. Anterior osteophytes are seen throughout. The atlantodental articulation is maintained. The spinous processes appear intact. There is no marrow edema or evidence of destructive bony lesion. Intervertebral discs: There is evidence of discectomy at C4-C5, C5-C6, and C6- C7. Disc desiccation and moderate loss of height is seen at the remaining cervical levels. Spinal cord: The cervical cord is normal in morphology and signal intensity. C2-C3: There is a large right lateral disc bulge seen on axial image #15. This contributes to moderate to severe central canal stenosis and likely impinges on the exiting right C3 nerve root. A posterior disc osteophyte complex minimally effaces the ventral subarachnoid space. Uncovertebral arthropathy is noted on the left. The left neural foramen is clear. C3-C4: A posterior disc osteophyte complex abuts the ventral cord. Lateral disc bulge is seen bilaterally. In conjunction with facet arthropathy there is severe right and moderate to severe left neural foraminal stenosis. This likely impinges on the exiting bilateral C4 nerve roots. C4-C5: Predominantly uncovertebral arthropathy contributes to mild bilateral neural foraminal stenosis, right greater than left. The central canal appears clear. C5-C6: Predominant uncovertebral arthropathy contributes to mild bilateral neural foraminal stenosis. The central canal is clear. C6-C7: Lateral disc bulge is seen bilaterally, left greater than right. This contributes to moderate to severe left greater than right neural foraminal stenosis and may impinge on the exiting bilateral C7 nerve roots. There is no significant acquired compromise of the central canal. C7-T1: There is a posterior disc herniation eccentric to the left which effaces the left aspect of the ventral cord. This contributes to moderate to severe left-sided neural foraminal stenosis and impinges on the exiting left C8 nerve root. Mild neural foraminal narrowing is seen on the right. T1-T2: There is a large left lateral disc herniation which effaces the left aspect of the ventral cord. There is severe left-sided neural foraminal stenosis with impingement on the exiting left T1 nerve root. Right lateral disc bulge c ontributes to moderate neural foraminal stenosis and may impinge on the exiting right T1 nerve root. T2-T3: Posterior disc bulge effaces the ventral subarachnoid space. The neural foramina appear clear. Soft tissues: The prevertebral and paraspinous soft tissues are normal as visualized. Brain parenchyma: The imaged brain parenchyma at the skull base is within normal limits. IMPRESSION: 1. Postoperative change with multilevel spondylosis of the cervical and upper thoracic spine as detailed above. See discussion for detailed level by level analysis. 2. The cervical cord is normal in morphology and signal intensity. 3. No destructive bony process is identified. Other Testing Shoulder CT (05/29/22) 1. The examination is significantly degraded by streak artifact from a right shoulder arthroplasty. 2. No acute bony abnormality is identified. 3. The right shoulder arthroplasty is in near anatomic alignment with no CT evidence of hardware complication. 4.There is multiloculated gas and fluid seen around the arthroplasty as above. Some of this is likely intra-articular, and the fluid extends from above the shoulder arthroplasty/below the AC joint, anteriorly along the humeral shaft. Some of this also appears to be intramuscular and there is surrounding inflammation. This may be on a postsurgical basis if there has been recent instrumentation. The sterility of this fluid cannot be assessed by imaging. Correlate clinically for evidence of infection.
[2022-05-31] MEDS: INSULIN ASPART PER UNIT CHARGE SC SCH ×4 (08:56→21:44)
[2022-05-31] MEDS ORDERED: MIDAZOLAM HCL 1 MG/ML 2ML VIAL ONE (09:02)
[2022-05-31] MEDS ORDERED: ONDANSETRON INJ 2 MG/ML 2 ML VIAL ONE (09:02)
[2022-05-31] MEDS ORDERED: fentaNYL citrate PF 100 MCG/2 ML VIAL ONE (09:02)
[2022-05-31] MEDS ORDERED: ROCURONIUM BROMIDE 10 MG/ML 5 ML VIAL IV ONE (09:02)
[2022-05-31] MEDS ORDERED: SUCCINYLCHOLINE CHLORIDE 20 MG/ML 10 ML VIAL IV ONE (09:02)
[2022-05-31] MEDS ORDERED: LIDOCAINE 2% MPF LOCAL 5 ML VIAL ONE (09:02)
[2022-05-31] MEDS ORDERED: PROPOFOL IV EMULSION 10 MG/ML 20 ML VIAL IV ONE (09:02)
--- NOTE | 2022-05-31 09:33 | History & Physical Bridge Note ---
Date of Service May 31, 2022 History & Physical Bridge Note I have examined the patient, reviewed the History & Physical and in the interval since the performance of the History & Physical I have noted the following changes of clinical significance: Patient is worsening back pain status post right shoulder revision and replacement secondary to infection. Is bacteremic. In light of the marked fluid collection in lumbar spine worsening pain recommending emergent I&D lumbar spine.
--- NOTE | 2022-05-31 09:33 | History & Physical Bridge Note ---
Date of Service May 31, 2022 History & Physical Bridge Note I have examined the patient, reviewed the History & Physical and in the interval since the performance of the History & Physical I have noted the following changes of clinical significance: Emergent irrigation and debridement of lumbar spine
[2022-05-31] MEDS ORDERED: ATROPINE SULFATE 0.1 MG/ML 10ML SYR IV PRN (09:47)
[2022-05-31] MEDS ORDERED: ePHEDrine sulfate 50 MG/ML AMP IV PRN (09:47)
[2022-05-31] MEDS ORDERED: ONDANSETRON INJ 2 MG/ML 2 ML VIAL IV PRN (09:47)
[2022-05-31] MEDS ORDERED: BUPIVACAINE/EPINEPHRINE 0.5% MPF 1:200,000 30 ML VIAL ONE (09:49)
[2022-05-31] MEDS ORDERED: GENTAMICIN SULFATE 40 MG/ML 2 ML VIAL ONE (09:49)
[2022-05-31] MEDS ORDERED: ceFAZolin 330 MG/ML 1 GM VIAL ONE (09:49)
[2022-05-31] MEDS ORDERED: VANCOMYCIN HCL 1000MG/20ML VIAL ONE (09:49)
[2022-05-31] MEDS ORDERED: HYDROmorphone INJ 2 MG/ML SYR/VIAL IV PRN (09:49)
[2022-05-31] MEDS ORDERED: HYDROmorphone INJ 2 MG/ML SYR/VIAL ONE (10:29)
[2022-05-31] MEDS ORDERED: SUGAMMADEX SODIUM 200 MG/2 ML VIAL IV ONE (10:37)
--- NOTE | 2022-05-31 10:47 | Operative Report ---
Post Operative Report Pre & Post Diagnosis Operation Date: 05/31/22 10:30 <No data on this case meets the specified criteria> Preop diagnosis: Epidural fluid collection rule out abscess Postop diagnosis: Epidural lumbar abscess I identified the patient and participated in the time-out.: Yes Procedure Operation Date: 05/31/22 10:30 <No data on this case meets the specified criteria> Surgeon Mynor Purcell, DO Baby Nurse Olman Holt Estimated Blood Loss 150 Findings See Below Evidence of purulent fluid in the epidural space lumbar spine Specimens Cultures taken of the epidural space Indications This is a 56-year-old male presents with infected right shoulder and bacteremia. Updated MRI continues to demonstrate fluid collection lumbar spine and with an his chronic pain we chose to perform urgent I&D. Description of Procedure Patient was met with identified informed consent obtained. Patient was then taken to the operative suite underwent a patient placed in a prone position jacks table top Ed frame. All bony promises well-padded eyes inspected to ensure no external pressure placed upon the. This point lumbar spine was prepped draped in sterile fashion. Sharp dissection with the assistance of Bovie cautery from down to and exposing the epidural space. Gross purulence was noted. Pockets did extend into the left lateral gutters. I debrided all infected appearing tissue. l then copiously irrigated with several liters of saline. Then placed 10 cc of Stimulan beads impregnated with vancomycin and gentamicin throughout the wound. 2 KAVITA drains were then inserted. The incision was then closed with subcutaneous Vicryl and 4 Monocryl for fascial closure. Steri-Strip sterile dressings placed. Patient waken taken to PACU in stable condition. I attest to the content of the Intraoperative Record and any orders documented therein. Any exceptions are noted below.
[2022-05-31] MEDS: fentaNYL citrate PF 100 MCG/2 ML VIAL IV PRN ×2 (11:49→11:54)
--- NOTE | 2022-05-31 12:00 | Infectious Disease Consult ---
Date of Consultation May 31, 2022 Assessment & Plan (1) Prosthetic joint infection: ID consult requested for prosthetic shoulder infection in this 56-year-old male, past medical history of hypertension, diabetes type 2, depression, CAD, status post SC, degenerative disc disease, status post cervical fusion, status post lumbar fusion, status post right shoulder joint replacement, TKR, who was admitted for infected R shoulder. Patient had underwent revision posterior spinal fusion L3-S1 on 04/26 due to back pain. He presented back to the hospital on 05/05 with worsening back pain. MRI suggested postoperative seroma. Patient underwent evacuation of the seroma on 05/08 and was discharged on 05/10. There is no culture of fluid. 05/05 Bcxs were negative. Patient reported persistent back pain as well as new onset left hip pain afterwards. He recently had completed a short burst of steroids as an outpatient. He reported several falls since hospital discharge. He denied any fever, bowel or bladder incontinence or saddle anesthesia. Patient was then admitted 05/23 with these complaints. Orthopedics was consulted. Left hip x-ray showed no acute fracture or dislocation. No orthopedic surgery intervention was thought to be needed and patient was discharged on 05/25. On 05/29 patient was seen by orthopedic surgery as outpatient and reported significant right shoulder pain for several days. It was noted that pt had recently been on steroids. Patient had history of right reverse shoulder arthroplasty 10/08/2021 for chronic rotator cuff tear without subsequent issues. On orthopedic exam, right shoulder had "some redness and hardness on the anterior aspect of his shoulder". Right shoulder x-ray showed prosthesis in the alignmentno fracture or loosening. Per orthopedic note, patient was started on amoxicillin 500 mg 3 times [address] day [address] of shoulder ordered. #infection R shoulder -CT of the right shoulder without IV contrast showed multiloculated gas and fluid seen around the arthroplasty and extending anteriorly along the humeral shaft. Patient was therefore admitted with plan for surgery. It was noted that patient took 3 doses amoxicillin prior to admission. -On 05/30, patient underwent 1 stage revision of right reverse total shoulder with component removal, irrigation and debridement and reimplantation of the right reverse total shoulder arthroplasty. A large amount of purulent discharge was noted. -Patient is currently on daptomycin 525 mg IV q24 and Zosyn 3.375 g IV every 8. -05/29 blood cultures with staph species, Sensis pending in 1 out of 4 bottles. 05/30 OR wound cultures with staph species in both cultures. 05/31 OR cx pending. -05/30 MRI lumbar spine shows possible mild increase in size of previously noted postsurgical fluid collection which may represent a seroma. Previously noted epidural fluid collection at L2-L3 is less conspicuous and noted to be in continuity with the postoperative collection. 05/30 shoulder x-ray shows intact reverse total right shoulder arthroplasty. -Pt has been afebrile. WBC up to ~15.9 Cr stable. Attempted to see patient this morning but he is in OR undergoing I&D of back. Plan Rec: Will stop zosyn at this time given multiple cultures with staph species. While ID/sensis of staph pending, would continue daptomycin - dose increased to 700mg IV q24 (~8 mg/kg based on AIW). Cpk should be monitored at baseline ,then weekly. Pt currently not ordered for statin. Repeat Bcxs ordered to document clearance. Would plan to addrifampin 300mg po q12in several days given retained hardware. At this time, there are no significant drug interactions between rifampin and current meds. F/u OR findings and cultures from today. Consultation Information This patient recommendation is based on a telemedicine consult request which was completed asynchronously through chart review and information provided by the primary physician. The patient was not seen or examined today. The evaluation is consultative in nature and all patient care and treatment decisions can either be accepted or rejected by the patient's primary hospital-based treating physician using their own independent medical judgment for their patient. [employer] contact information: Please call [facility] . (Phone Number For Physician Use Only) Time Spent Reviewing Chart: 31+ minutes History of Present Illness Attending Physician: Ozzy Zhu History of Present Illness ID consult requested for prosthetic shoulder infection in this 56-year-old male, past medical history of hypertension, diabetes type 2, depression, CAD, status post SC, degenerative disc disease, status post cervical fusion, status post lumbar fusion, status post right shoulder joint replacement, TKR, who was admitted for infected R shoulder. Patient had underwent revision posterior spinal fusion L3-S1 on 04/26 due to back pain. He presented back to the hospital on 05/05 with worsening back pain. MRI suggested postoperative seroma. Patient underwent evacuation of the seroma on 05/08 and was discharged on 05/10. There is no culture of fluid. 05/05 Bcxs were negative. Patient reported persistent back pain as well as new onset left hip pain afterwards. He recently had completed a short burst of steroids as an outpatient. He reported several falls since hospital discharge. He denied any fever, bowel or bladder incontinence or saddle anesthesia. Patient was then admitted 05/23 with these complaints. Orthopedics was consulted. Left hip x-ray showed no acute fracture or dislocation. No orthopedic surgery intervention was thought to be needed and patient was di scharged on 05/25. On 05/29 patient was seen by orthopedic surgery as outpatient and reported significant right shoulder pain for several days. It was noted that pt had recently been on steroids. Patient had history of right reverse shoulder arthroplasty 10/08/2021 for chronic rotator cuff tear without subsequent issues. On orthopedic exam, right shoulder had "some redness and hardness on the anterior aspect of his shoulder". Right shoulder x-ray showed prosthesis in the alignmentno fracture or loosening. Per orthopedic note, patient was started on amoxicillin 500 mg 3 times a day and CT of shoulder ordered. CT of the right shoulder without IV contrast showed multiloculated gas and fluid seen around the arthroplasty and extending anteriorly along the humeral shaft. Patient was therefore admitted with plan for surgery. It was noted that patient took 3 doses amoxicillin prior to admission. On 05/30, patient underwent 1 stage revision of right reverse total shoulder with component removal, irrigation and debridement and reimplantation of the right reverse total shoulder arthroplasty. A large amount of purulent discharge was noted. Patient is currently on daptomycin 525 mg IV q24 and Zosyn 3.375 g IV every 8. 05/29 blood cultures with staph species, Sensis pending in 1 out of 4 bottles. 05/30 OR wound cultures with staph species in both cultures. 05/31 OR cx pending. 05/30 MRI lumbar spine shows possible mild increase in size of previously noted postsurgical fluid collection which may represent a seroma. Previously noted epidural fluid collection at L2-L3 is less conspicuous and noted to be in continuity with the postoperative collection. 05/30 shoulder x-ray shows intact reverse total right shoulder arthroplasty. Pt has been afebrile. WBC up to ~15.9 Cr stable. Attempted to see patient this morning but he is in OR undergoing I&D of back. Allergies Allergy/AdvReac Type Severity Reaction Status Date / Time shellfish derived Allergy Severe Throat Verified 05/23/22 11:07 swelling tramadol Allergy Mild Hives, Verified 05/23/22 11:07 dizziness, nausea acetaminophen AdvReac Mild Upset Verified 05/23/22 11:07 stomach Home Medications Medication Instructions Recorded Confirmed Type amitriptyline 100 mg tablet 100 mg PO HS 02/16/19 05/29/22 History atorvastatin 80 mg tablet (Lipitor) 80 mg PO HS 02/16/19 05/29/22 History famotidine 20 mg tablet (Pepcid) 20 mg PO BID 02/16/19 05/29/22 History gabapentin 100 mg capsule 100 mg PO TID 02/16/19 05/29/22 History losartan 50 mg tablet (Cozaar) 50 mg PO QAM 02/16/19 05/29/22 History metoprolol succinate 25 mg 25 mg PO QAM 02/23/19 05/29/22 History tablet,extended release 24 hr (Toprol XL) metformin 1,000 mg tablet 1,000 mg PO BID 02/29/20 05/29/22 History melatonin 10 mg tablet 10 mg PO HS 09/07/21 05/23/22 History oxycodone 10 mg tablet 10 mg PO Q6H PRN pain #30 tabs 10/31/21 05/29/22 Rx paroxetine HCl 30 mg tablet (Paxil) 30 mg PO QAM 04/05/22 05/29/22 History cyclobenzaprine 10 mg tablet 10 mg PO TID PRN muscle spasm #15 05/25/22 05/29/22 Rx tabs lidocaine 5 % topical patch 1 patch transdermal QAM #10 ea 05/25/22 Rx lidocaine 5 % topical patch 1 patch topical DAILY #15 ea 05/25/22 Rx (Lidoderm) amoxicillin 500 mg tablet 500 mg PO TID #90 tabs 05/28/22 05/29/22 Rx Patient History Medical History CAD (coronary artery disease) 2006 x 2 stents (LAD, Diagonal) 2011 (PADMINI D1) cardiac stents x3 total (most recent stent 2011) No recent issues Degenerative disc disease s/p cervical fusion Depression Diabetes mellitus, type 2 NIDDM GERD (gastroesophageal reflux disease) controlled, stable per pt Hyperlipidemia Hypertension controlled, stable per pt Myocardial Infarction 2012 > stents SIDDHARTHA (obstructive sleep apnea) pt states the last sleep study was negative Surgical History Difficult intubation Right reverse total shoulder replacement (10/08/21): Glidescope#3, ETT 7.5 + PNB at [facility]. *Difficult airway* per anesthesia record comments. No issues noted per post-op anesthesia progress note. Fusion of spine ACDF C6-C7, C5 corpectomy: 08/08/10: MAC#4, ETT 7.5 at [facility] History of cardiac cath 2006 x 2 stents (LAD, Diagonal) 2011 (PADMINI D1) History of colonoscopy History of esophageal dilatation History of esophagogastroduodenoscopy (EGD) History of hip surgery right hip (as a child) History of lumbar fusion 10/04/2020: elective glidescope 3. ETT 8.0. History of repair of rotator cuff right History of reverse total replacement of right shoulder joint Right reverse total shoulder replacement (10/08/21): Glidescope#3, ETT 7.5 + PNB at [facility]. *Difficult airway* per anesthesia record comments. No issues noted per post-op anesthesia progress note. History of tooth extraction History of total knee replacement right knee S/P arthroscopy of right shoulder 03/18/19. 02/29/20. LMA#5. Family History Father Family history of diabetes mellitus Other No family history of adverse response to anesthesia Social History Smoking Status: Current every day smoker Tobacco Type: Cigarettes Second Hand Exposure: No; Hx Alcohol Use: Yes Alcohol type: beer Hx Substance Use: No Preferred Language: Belarusian Communication Ability: Effective Banquet Houseperson Required: No Beliefs That Will Affect Care: None marital status: Current Living Situation: Spouse Feels Safe at Home: Yes Assistive Devices: Walker Results & Data Vital Signs (Past 12 Hours) Vital Signs Temp Pulse Pulse Resp BP Pulse Ox O2 Del Method 05/31/22 11:40 85 13 122/79 92 Oxymask 05/31/22 11:50 82 13 136/73 95 Oxymask 05/31/22 11:31 36.3 C L 88 12 132/82 96 Oxymask 05/31/22 09:11 36.4 C L 91 H 18 127/89 95 Room Air 05/31/22 07:30 36.5 C 70 16 124/82 95 Nasal Cannula 05/31/22 02:40 36.4 C L 73 16 119/61 96 Nasal Cannula O2 Flow Rate 05/31/22 11:40 9 05/31/22 11:50 9 05/31/22 11:31 9 05/31/22 09:11 05/31/22 07:30 2 05/31/22 02:40 2 Laboratory Results 05/31/22 Unknown Gram Stain - Pending Back Aerobic and Anaerobic Culture - Pending 05/30/22 13:44 Gram Stain - Final Shoulder,Right Aerobic and Anaerobic Culture - Preliminary Staphylococcus species 05/30/22 13:44 Gram Stain - Final Shoulder,Right Aerobic and Anaerobic Culture - Preliminary Staphylococcus species 05/29/22 16:19 Aerobic Blood Culture - Preliminary Blood Staphylococcus species Anaerobic Blood Culture - Preliminary No growth in Anaerobic bottle after 24 hours. 05/29/22 16:19 Aerobic Blood Culture - Preliminary Blood No growth in Aerobic bottle after 24 hours. Anaerobic Blood Culture - Preliminary No growth in Anaerobic bottle after 24 hours. 05/31/22 05/31/22 05/31/22 11:37 08:01 05:58 WBC RBC Hgb Hct MCV MCH MCHC RDW Std Deviation RDW Coeff of Padmini Plt Count MPV Immature Gran % (Auto) Neut % (Auto) Lymph % (Auto) [place] % (Auto) Eos % (Auto) Baso % (Auto) Neut # (Auto) Lymph # (Auto) [place] # (Auto) Eos # (Auto) Baso # (Auto) Immature Gran # (Auto) Sodium 132 L Potassium 4.4 Chloride 100 Carbon Dioxide 26 Anion Gap 6 BUN 15 Creatinine 0.69 Est Cr Clr Drug Dosing 150.7 Est GFR ( Amer) 123.0 Est GFR (Non-Af Amer) 106.1 BUN/Creatinine Ratio 21.7 H Glucose 188 H POC Glucose 161 H 166 H Calcium 8.2 L 05/31/22 05/30/22 05/30/22 05:58 20:40 17:59 WBC 15.89 H RBC 3.45 L Hgb 10.4 L Hct 31.0 L MCV 89.9 MCH 30.1 MCHC 33.5 RDW Std Deviation 43.9 RDW Coeff of Padmini 13.2 Plt Count 333 MPV 9.0 L Immature Gran % (Auto) 1.3 Neut % (Auto) 89.3 Lymph % (Auto) 5.0 [place] % (Auto) 4.2 Eos % (Auto) 0.0 Baso % (Auto) 0.2 Neut # (Auto) 14.19 H Lymph # (Auto) 0.80 L [place] # (Auto) 0.67 H Eos # (Auto) 0.00 Baso # (Auto) 0.03 Immature Gran # (Auto) 0.20 Sodium Potassium Chloride Carbon Dioxide Anion Gap BUN Creatinine Est Cr Clr Drug Dosing Est GFR ( Amer) Est GFR (Non-Af Amer) BUN/Creatinine Ratio Glucose POC Glucose 290 H 191 H Calcium 05/30/22 05/30/22 17:15 15:52 WBC RBC Hgb Hct MCV MCH MCHC RDW Std Deviation RDW Coeff of Padmini Plt Count MPV Immature Gran % (Auto) Neut % (Auto) Lymph % (Auto) [place] % (Auto) Eos % (Auto) Baso % (Auto) Neut # (Auto) Lymph # (Auto) [place] # (Auto) Eos # (Auto) Baso # (Auto) Immature Gran # (Auto) Sodium Potassium Chloride Carbon Dioxide Anion Gap BUN Creatinine Est Cr Clr Drug Dosing Est GFR ( Amer) Est GFR (Non-Af Amer) BUN/Creatinine Ratio Glucose POC Glucose 176 H 171 H Calcium Diagnostic Findings Foot X-Ray 05/29/22 15:20 RIGHT FOOT 3 VIEWS CLINICAL HISTORY: Right foot injury. FINDINGS: 3 views of the right foot are obtained. No prior studies are available for comparison at the time of dictation. The skeletal structures are well mineralized. No fracture is seen. Minimal degenerative changes seen at the first metatarsophalangeal joint. There is a large dorsal calcaneal enthesophyte. Degenerative spurring is seen along the dorsal aspect of the tarsal bones. The overlying soft tissues are within normal limits. IMPRESSION: No acute bony abnormality is identified. Electronically signed by: Terrence Chatman M.D. 05/29/2022 3:50 PM Lumbar Spine MRI 05/30/22 08:28 MR lumbar spine wo con CLINICAL HISTORY: post op back pain TECHNIQUE: Multiplanar sequences through the lumbar spine were obtained, without intravenous contrast. Comparison: Comparison is made to MRI lumbar spine 05/23/2022 FINDINGS: Surgical fixation hardware is seen spanning L3-L5. Posterior decompression is noted. The postsurgical fluid collection is somewhat enlarged from prior exam, measuring 94 x 28 mm compared to 81 x 17 mm. Intracanicular fluid collection seen in prior exam at L2-L3 is now noted to be in continuity with a postsurgical collection and appears somewhat less conspicuous than on the prior exam. No new fluid collections are seen. There is up to moderate canal stenosis at L2-L3 without significant neuroforaminal stenosis, evaluation is limited by susceptibility artifact. L2-L3 canal size has significantly increased from 7 to 9 mm. The spinal ligaments are intact, without evidence of disruption or abnormal signal intensity. The spinal cord is normal in signal intensity and there is no evidence of cord contusion. IMPRESSION: 1. Possible mild increase in size of previously noted postsurgical fluid collection which may represent a seroma, however sterility cannot be assessed. 2. Previously noted epidural fluid collection at L2-L3 is less conspicuous and noted to be in continuity with the postoperative collection. Canal patency has significantly improved. ACT 112: Negative or not required by law. Electronically signed by: Be Aramndo M.D. 05/30/2022 12:00 PM Shoulder X-Ray 05/30/22 15:42 XR shoulder RT min 2V routine CLINICAL HISTORY: Post shoulder surgery COMPARISON: Right shoulder radiographs October 08, 2021. Right shoulder CT May 29, 2022. FINDINGS: Alignment of the reverse total right shoulder arthroplasty is anatomic. There is no periprosthetic fracture or lucency. Surgical drains and skin virgil are noted. There are no unexpected radiopaque foreign bodies. IMPRESSION: Intact reverse total right shoulder arthroplasty. No periprosthetic fracture or lucency. No unexpected radiopaque bodies. ACT 112: Negative or not required by law. Electronically signed by: Maykel Jackson M.D. 05/30/2022 4:54 PM Medications Administered Current Medications Acetaminophen (Acetaminophen 325 Mg Tab) 650 mg PO Q4H PRN PRN Reason: pain (1-4)/fever Stop: 06/28/22 14:58 Last Admin: 05/31/22 07:31 Dose: 650 mg Amitriptyline HCl (Amitriptyline Hcl 100 Mg Tab) 100 mg PO HS [facility] Stop: 06/28/22 20:59 Last Admin: 05/30/22 20:50 Dose: 100 mg Atropine Sulfate (Atropine Sulfate 0.1 Mg/Ml 10ml Syr) 0.5 mg IV Q1M PRN PRN Reason: PACU Use-HR<40 &/or Bradycardi Stop: 05/31/22 17:47 Bisacodyl (Bisacodyl 10 Mg Supp) 10 mg FL DAILY PRN PRN Reason: Constipation Stop: 06/29/22 17:26 Cyclobenzaprine HCl (Cyclobenzaprine Hcl 10 Mg Tab) 10 mg PO TID PRN PRN Reason: muscle spasm Stop: 06/28/22 15:41 Dextrose (Dextrose 50% 50 Ml Syringe) 25 - 50 ml IV UD PRN; Protocol PRN Reason: Hypoglycemia Protocol Stop: 06/28/22 15:56 Docusate Sodium (Docusate Sodium 100 Mg Cap) 100 mg PO BID [facility] Stop: 06/29/22 20:59 Last Admin: 05/31/22 08:30 Dose: 100 mg Ephedrine Sulfate (Ephedrine Sulfate 50 Mg/Ml Amp) 5 mg IV Q5M PRN PRN Reason: PACU Use Only-SBP<90 mmHg Stop: 05/31/22 17:47 Famotidine (Famotidine 20 Mg Tab) 20 mg PO BID [facility] Stop: 06/28/22 20:59 Last Admin: 05/31/22 08:31 Dose: 20 mg Fentanyl Citrate (Fentanyl Citrate Pf 100 Mcg/2 Ml Vial) 50 mcg IV Q5M PRN PRN Reason: PACU Use Only-Pain Stop: 05/31/22 17:47 Last Admin: 05/31/22 11:54 Dose: 50 mcg Gabapentin (Gabapentin 100 Mg Cap) 100 mg PO TID [facility] Stop: 06/28/22 20:59 Last Admin: 05/31/22 08:31 Dose: 100 mg Glucagon (Glucagon For Inj 1 Mg Vial) 1 mg SQ UD PRN; Protocol PRN Reason: Hypoglycemia Protocol Stop: 06/28/22 15:56 Glucose (Glucose 10 Tab/Tube) 4 - 8 tab PO UD PRN; Protocol PRN Reason: Hypoglycemia Treatment Stop: 06/28/22 15:56 Glucose (Glucose 40% Gel 15 Gm Tube) 15 - 30 gm PO UD PRN; Protocol PRN Reason: Hypoglycemia Protocol Stop: 06/28/22 15:56 Hydromorphone HCl (Hydromorphone Inj 0.5 Mg/0.5 Ml Syr) 0.5 mg IV Q4H PRN PRN Reason: Pain (5-7) Stop: 06/12/22 20:41 Hydromorphone HCl (Hydromorphone Inj 1 Mg/Ml Syringe) 1 mg IV Q4H PRN PRN Reason: Pain (8-10) Stop: 06/12/22 20:41 Last Admin: 05/30/22 09:26 Dose: 1 mg Hydromorphone HCl (Hydromorphone Inj 2 Mg/Ml Syr/Vial) 0.5 mg IV Q5M PRN PRN Reason: PACU Use Only-Pain Stop: 05/31/22 17:49 Daptomycin 525 mg/ Syringe 10.5 mls @ 5.25 mls/min IV Q24H [facility]; Protocol Stop: 07/10/22 17:29 Last Admin: 05/30/22 17:49 Dose: 5.25 mls/min Piperacillin Sod/Tazobactam (Sod 3.375 gm/ Dextrose) 115 mls @ 28.75 mls/hr IV Q8H [facility]; Protocol Stop: 07/10/22 21:59 Last Infusion: 05/31/22 06:00 Dose: Infused Insulin Aspart (Insulin Aspart Per Unit Charge) 0 units SC ACHS [facility] Stop: 06/29/22 20:59 Last Admin: 05/31/22 08:56 Dose: 1 units Losartan Potassium (Losartan Potassium 50 Mg Tab) 50 mg PO QAM [facility] Stop: 06/30/22 08:59 Magnesium Hydroxide (Magnesium Hydroxide Susp 30 Ml Udc) 30 ml PO Q6H PRN PRN Reason: Constipation Stop: 06/29/22 17:26 Melatonin (Melatonin 3 Mg Tab) 9 mg PO HS [facility] Stop: 06/28/22 20:59 Last Admin: 05/30/22 20:49 Dose: 9 mg Metformin HCl (Metformin Hcl 500 Mg Tab) 1,000 mg PO BIDM [facility] Stop: 06/29/22 18:29 Last Admin: 05/31/22 08:38 Dose: Not Given Metoclopramide HCl (Metoclopramide Hcl Inj 5 Mg/Ml 2 Ml Vial) 10 mg IV Q6H PRN PRN Reason: Nausea And Vomiting Stop: 06/29/22 17:26 Metoprolol Succinate (Metoprolol Succ 25mg Ext Rel Tab) [facility] [place] Stop: 06/29/22 08:59 Last Admin: 05/31/22 08:40 Dose: 25 mg Miscellaneous (Carbohydrates For Hypoglycemia ) 15 - 30 gm PO UD PRN PRN Reason: Hypoglycemia Protocol Stop: 06/28/22 15:56 Multivitamins (Multivitamin Tab) 1 [facility] [place] Stop: 06/30/22 08:59 Last Admin: 05/31/22 08:28 Dose: 1 tab Naloxone HCl (Naloxone Hcl 0.4 Mg/1 Ml Vial/Carp) 0.4 mg IV PRN PRN PRN Reason: Oversedation/Resp Depression Stop: 06/28/22 20:42 Naloxone HCl (Naloxone Hcl 0.4 Mg/1 Ml Vial/Carp) 0.1 mg IV Q5M PRN PRN Reason: Oversedation/Resp Depression Stop: 06/29/22 17:26 Ondansetron HCl (Ondansetron Inj 2 Mg/Ml 2 Ml Vial) 4 mg IV ONCE PRN PRN Reason: PACU Use Only-Nausea/Vomiting Stop: 05/31/22 17:48 Oxycodone HCl (Oxycodone Hcl Ir 5 Mg Tab (Immediate Release)) 10 mg PO Q6H PRN PRN Reason: pain Stop: 06/13/22 17:26 Last Admin: 05/31/22 03:25 Dose: 10 mg Paroxetine HCl (Paroxetine Hcl 20 Mg Tab) [facility] [place] Stop: 06/29/22 08:59 Last Admin: 05/31/22 08:28 Dose: 30 mg Sennosides (Senna 8.6 Mg Tab) 17.2 mg PO [facility] Stop: 06/29/22 20:59 Last Admin: 05/30/22 20:50 Dose: 17.2 mg
--- NOTE | 2022-05-31 13:39 | Anesthesiology Progress Note ---
Date of Service May 31, 2022 Anesthesia Post Procedure Vital Signs Vital Signs: Temp Pulse Pulse Resp BP Pulse Ox O2 Del Method 05/31/22 13:00 36.4 C L 97 H 20 134/82 98 Nasal Cannula 05/31/22 12:57 36.4 C L 74 20 156/81 H 98 Nasal Cannula 05/31/22 12:31 36.5 C 78 16 121/74 96 Nasal Cannula 05/31/22 12:15 80 12 131/68 96 Nasal Cannula 05/31/22 12:10 36.6 C 83 13 126/69 95 Nasal Cannula 05/31/22 12:00 83 12 134/72 95 Nasal Cannula 05/31/22 11:40 85 13 122/79 92 Oxymask 05/31/22 11:50 82 13 136/73 95 Oxymask 05/31/22 11:31 36.3 C L 88 12 132/82 96 Oxymask 05/31/22 09:11 36.4 C L 91 H 18 127/89 95 Room Air 05/31/22 07:30 36.5 C 70 16 124/82 95 Nasal Cannula 05/31/22 02:40 36.4 C L 73 16 119/61 96 Nasal Cannula 05/30/22 22:46 36.6 C 71 20 116/76 96 Nasal Cannula 05/30/22 19:39 36.7 C 87 18 111/86 98 Room Air 05/30/22 18:20 36.4 C L 82 15 148/93 H 98 Nasal Cannula 05/30/22 17:57 36.4 C L 80 16 137/86 97 Nasal Cannula 05/30/22 17:28 36.3 C L 85 16 145/86 H 96 Nasal Cannula 05/30/22 16:35 91 H 20 152/95 H 99 Oxymask 05/30/22 16:25 93 H 23 150/81 H 96 Oxymask 05/30/22 16:55 36.6 C 93 H 20 142/85 H 89 L Room Air 05/30/22 16:45 36.6 C 94 H 20 149/86 H 98 Room Air 05/30/22 16:15 94 H 19 148/89 H 99 Oxymask 05/30/22 16:05 96 H 15 145/93 H 99 Oxymask 05/30/22 15:55 99 H 22 130/93 100 Oxymask 05/30/22 15:49 36.1 C L 101 H 10 L 151/84 H 94 Oxymask O2 Flow Rate 05/31/22 13:00 2 05/31/22 12:57 4 05/31/22 12:31 4 05/31/22 12:15 4 05/31/22 12:10 4 05/31/22 12:00 4 05/31/22 11:40 9 05/31/22 11:50 9 05/31/22 11:31 9 05/31/22 09:11 05/31/22 07:30 2 05/31/22 02:40 2 05/30/22 22:46 2 05/30/22 19:39 05/30/22 18:20 2 05/30/22 17:57 2 05/30/22 17:28 2 05/30/22 16:35 3 05/30/22 16:25 3 05/30/22 16:55 05/30/22 16:45 05/30/22 16:15 3 05/30/22 16:05 3 05/30/22 15:55 5 05/30/22 15:49 7 Pain Intensity Right Shoulder: Pain Intensity: 8 Lower Back: Pain Intensity: 8 Right Foot: Pain Intensity: 8 Back: Pain Intensity: 4 Transfer of Care Handoff Completed per policy Notes Mental Status: alert / awake / arousable and participated in evaluation Patient Amnestic to Procedure: Yes Nausea / Vomiting: adequately controlled Pain: adequately controlled Airway Patency, RR, SpO2: stable & adequate BP & HR: stable & adequate Hydration State: stable & adequate Anesthetic Complications: no major complications apparent and Pt Satisfied with anesthetic care
[2022-05-31] MEDS: DAPTOmycin 700 MG in SYRINGE 0 ML IV SCH (13:59)
--- NOTE | 2022-05-31 15:29 | Orthopedic Progress Note ---
Date of Service May 31, 2022 Assessment & Plan (1) Prosthetic joint infection: He is doing fairly well with regards to his right shoulder. Initial cultures have grown out staph species. He was on Zosyn and we will see if the medical team will change his antibiotics. Infectious disease has been consulted. I will likely remove the drains tomorrow depending on and drain output. Linda Serna was seen and examined at bedside today. He had undergone an irrigation and debridement of his lumbar spine earlier today. I spoke with the spine surgeon and was grossly infected. His shoulder and his back are actually feeling better. He has no other complaints. He says he is not having any pain on his head from the small laceration. Review of Systems All systems reviewed & are unremarkable except as noted in HPI & below. Physical Exam On physical examination of his right shoulder, the drains are to suction. The dressing is intact. He is wearing a sling as instructed. Results & Data Results & Data Laboratory Results . Diagnostic Findings . PG Care Time/CCT Total # of Minutes Spent Total Time Spent with Patient: Total time spent is greater than 50% in coordination of care (as documented) at patient's floor/unit and/or counseling patient: Coding Level of Care Code 06955 Post Operative Follow-Up Diagnoses Prosthetic joint infection T84.50XA
[2022-05-31] MEDS: HYDROmorphone INJ 1 MG/ML SYRINGE IV PRN ×3 (15:42→23:33)
[2022-05-31] MEDS ORDERED: LACTATED RINGER'S 1,000 ML IV SCH (17:15)
[2022-05-31] MEDS: AMITRIPTYLINE HCL 100 MG TAB PO SCH (21:38)
[2022-05-31] MEDS: SENNA 8.6 MG TAB PO SCH (21:39)
[2022-05-31] MEDS: MELATONIN 3 MG TAB PO SCH (21:44)
--- NOTE | 2022-05-31 21:52 | Hospitalist Progress Note ---
Date of Service May 31, 2022 Assessment & Plan (1) Prosthetic joint infection: Plan: acute infection, high risk , recent lumbar surgery 04/26/22 L3-S1, evacuation of hematoma 05/08/[address] to outpt office Dr Latham, pain in right shoulder, Ct shoulder multiloculated gas and fluid seen around the arthroplasty on Daptomycin and Zosyn parenteral medications for pain control Staph suggested by PCR and blood cultures. Intraoperative cultures are currently pending. Consultation to ID connect for further recommendations and continued management intra hospital course appreciate input from ID. awaiting cultures (2) Postoperative back pain: Plan: acute on chronic back pain, recent surgery and hemotoma evacuation Progressively getting worse since his latest operation. Concerning for hardware infection given shoulder infection. Will consult his Dr Purcell, orthopedic surgeon to determine if further imaging required vs. waiting final results for blood and intraoperative shoulder cultures. (3) Diabetes mellitus, type 2: Plan: No need to repeat this. Hold metformin basal bolus insulin Novolog: --Goal BSG Range: Low 110 mg/dL, High 140 mg/dL --Correction Factor: 45 mg/dL/unit No carb ratio --BSGs ACHS if eating, q6h if npo (4) CAD (coronary artery disease): Plan: Chronic and stable 2007 x 2 stents (LAD, Diagonal) 2011 (PADMINI D1) hold asprine Restart on aspirin post operatively when ok by orthopedics Continue metoprolol and losartan Restart atorvastatin when off daptomycin chronic stable hypertension (5) Depression: Plan: Chronc stable continue paroxetine (6) GERD (gastroesophageal reflux disease): Plan: chronic stable Continue famotidine 20mg PO BID Plan VTE Prophylaxis - deferred pre-operatively Disposition - admit to med/surg Admission and Anticipated Discharge Date Admission Date: May 29, 2022 Subjective 56 yo male reports no new symptoms. Review of Systems Review of Systems: All systems reviewed & are unremarkable except as noted in HPI & below Physical Exam Physical Exam: Awake alert appropriate. He has pain in his right shoulder movement pain is back to move around. Card exam is regular without murmurs there is no periphera l stigmata of endocarditis at this time his abdomen is NABS soft and nontender his back is tender to touch there is no fluctuance purulence or erythema his extremities show eschars on his knees and feet he has distal pulses intact as well as sensation Results & Data Results & Data Vital Signs (Past 12 Hours) Vital Signs Temp Pulse Pulse Resp BP Pulse Ox O2 Del Method 05/31/22 15:46 79 95 Room Air 05/31/22 15:22 36.4 C L 76 18 128/84 98 Nasal Cannula 05/31/22 14:26 36.4 C L 77 16 121/69 97 Nasal Cannula 05/31/22 13:00 36.4 C L 97 H 20 134/82 98 Nasal Cannula 05/31/22 12:57 36.4 C L 74 20 156/81 H 98 Nasal Cannula 05/31/22 12:31 36.5 C 78 16 121/74 96 Nasal Cannula 05/31/22 12:15 80 12 131/68 96 Nasal Cannula 05/31/22 12:10 36.6 C 83 13 126/69 95 Nasal Cannula 05/31/22 12:00 83 12 134/72 95 Nasal Cannula 05/31/22 11:40 85 13 122/79 92 Oxymask 05/31/22 11:50 82 13 136/73 95 Oxymask 05/31/22 11:31 36.3 C L 88 12 132/82 96 Oxymask O2 Flow Rate 05/31/22 15:46 05/31/22 15:22 4 05/31/22 14:26 4 05/31/22 13:00 2 05/31/22 12:57 4 05/31/22 12:31 4 05/31/22 12:15 4 05/31/22 12:10 4 05/31/22 12:00 4 05/31/22 11:40 9 05/31/22 11:50 9 05/31/22 11:31 9 PG Care Time/CCT Total # of Minutes Spent Total Time Spent with Patient: Total time spent is greater than 50% in coordination of care (as documented) at patient's floor/unit and/or counseling patient: Coding Level of Care Code 47457 SUB INP/OBS CARE 2/35MIN Diagnoses Prosthetic joint infection T84.50XA Postoperative back pain G89.18; M54.9 Diabetes mellitus, type 2 E11.9 CAD (coronary artery disease) I25.10 Depression F32.A GERD (gastroesophageal reflux disease) K21.9
[2022-06-01] MEDS: HYDROmorphone INJ 1 MG/ML SYRINGE IV PRN ×6 (03:22→23:31)
[2022-06-01] MEDS: oxyCODONE HCL IR 5 MG TAB (IMMEDIATE RELEASE) PO PRN ×4 (03:22→21:25)
--- NOTE | 2022-06-01 06:17 | Orthopedic Progress Note ---
Date of Service June 01, 2022 Assessment & Plan (1) Prosthetic joint infection: He seems to be doing okay with the right shoulder. The drains were removed today. He is currently on daptomycin for antibiotics. The cultures have grown out a staph species but were still waiting final cultures. He will be ort hopedically ready for discharge when cultures are final and we have final recommendations from infectious disease. Linda Serna was seen and examined at bedside this morning. Overall is doing okay. Has some soreness in his shoulder and his back. He was able to get some sleep last night. He has no new complaints.. Review of Systems All systems reviewed & are unremarkable except as noted in HPI & below. Physical Exam On physical examination of his right shoulder, he is wearing his sling as instructed. I change the dressing and remove the drain.. Results & Data Results & Data Laboratory Results . Diagnostic Findings . PG Care Time/CCT Total # of Minutes Spent Total Time Spent with Patient: Total time spent is greater than 50% in coordination of care (as documented) at patient's floor/unit and/or counseling patient: Coding Level of Care Code 20696 Post Operative Follow-Up Diagnoses Prosthetic joint infection T84.50XA
--- NOTE | 2022-06-01 08:24 | Orthopedic Progress Note ---
Date of Service June 01, 2022 Assessment & Plan (1) Abscess in epidural space of lumbar spine: Plan: At this time we will initiate physical therapy to tolerance. Monitor his KAVITA output. Admission and Anticipated Discharge Date Admission Date: May 29, 2022 Subjective Back pain has improved denies any leg pain Physical Exam Physical Exam: Patient is in the chair at the bedside. Is distracted testing extremities. Results & Data Vital Signs (Past 12 Hours) Vital Signs Temp Pulse Pulse Resp BP Pulse Ox O2 Del Method 06/01/22 07:03 36.3 C L 83 16 126/76 93 Room Air 06/01/22 03:08 36.6 C 86 16 118/70 92 Room Air 05/31/22 22:00 36.7 C 79 18 127/76 94 Room Air
[2022-06-01] MEDS: FAMOTIDINE 20 MG TAB PO SCH ×2 (09:06→21:24)
[2022-06-01] MEDS: LOSARTAN POTASSIUM 50 MG TAB PO SCH (09:06)
[2022-06-01] MEDS: MULTIVITAMIN TAB PO SCH (09:06)
[2022-06-01] MEDS: METOPROLOL SUCC 25MG EXT REL TAB PO SCH (09:06)
[2022-06-01] MEDS: GABAPENTIN 100 MG CAP PO SCH ×3 (09:06→21:24)
[2022-06-01] MEDS: PARoxetine HCL 20 MG TAB PO SCH (09:06)
[2022-06-01] MEDS: DOCUSATE SODIUM 100 MG CAP PO SCH ×2 (09:06→21:23)
[2022-06-01] MEDS: INSULIN ASPART PER UNIT CHARGE SC SCH ×4 (09:08→20:46)
[2022-06-01] MEDS: DAPTOmycin 700 MG in SYRINGE 0 ML IV SCH (13:13)
[2022-06-01] MEDS: SENNA 8.6 MG TAB PO SCH (21:23)
[2022-06-01] MEDS: AMITRIPTYLINE HCL 100 MG TAB PO SCH (21:23)
[2022-06-01] MEDS: MELATONIN 3 MG TAB PO SCH (21:27)
[2022-06-01] MEDS: oxyCODONE HCL 10 MG TABCR (OxyCONTIN) PO SCH (21:30)
--- NOTE | 2022-06-01 22:56 | Hospitalist Progress Note ---
Date of Service June 01, 2022 Assessment & Plan (1) Prosthetic joint infection: Plan: acute infection, high risk , recent lumbar surgery 04/26/22 L3-S1, evacuation of hematoma 05/08/[address] to out[address] office Dr Latham, pain in right shoulder, Ct shoulder multiloculated gas and fluid seen around the arthroplasty on Daptomycin and Zosyn parenteral medications for pain control Staph suggested by PCR and blood cultures. Intraoperative cultures are currently pending. Consultation to ID connect for further recommendations and continued management intra hospital course appreciate input from ID. awaiting cultures placed dressing on left toe (2) Postoperative back pain: Plan: acute on chronic back pain, recent surgery and hemotoma evacuation Progressively getting worse since his latest operation. Concerning for hardware infection given shoulder infection. Will consult his Dr Purcell, orthopedic surgeon to determine if further imaging required vs. waiting final results for blood and intraoperative shoulder cultures. (3) Diabetes mellitus, type 2: Plan: No need to repeat this. Hold metformin basal bolus insulin Novolog: --Goal BSG Range: Low 110 mg/dL, High 140 mg/dL --Correction Factor: 45 mg/dL/unit No carb ratio --BSGs ACHS if eating, q6h if npo (4) CAD (coronary artery disease): Plan: Chronic and stable 2007 x 2 stents (LAD, Diagonal) 2011 (PADMINI D1) hold asprine Restart on aspirin post operatively when ok by orthopedics Continue metoprolol and losartan Restart atorvastatin when off daptomycin chronic stable hypertension (5) Depression: Plan: Chronc stable continue paroxetine (6) GERD (gastroesophageal reflux disease): Plan: chronic stable Continue famotidine 20mg PO BID Plan VTE Prophylaxis - deferred pre-operatively Disposition - admit to med/surg Admission and Anticipated Discharge Date Admission Date: May 29, 2022 Subjective Patient reports no new symptoms. Review of Systems Review of Systems: All systems reviewed & are unremarkable except as noted in HPI & below Physical Exam Physical Exam: Awake alert appropriate. He has pain in his right shoulder movement pain is back to move around. Card exam is regular without murmurs there is no peripheral stigmata of endocarditis at this time his abdomen is NABS soft and nontender his back is tender to touch there is no fluctuance purulence or erythema his extremities show eschars on his knees and feet he has distal pulses intact as well as sensation Results & Data Results & Data Vital Signs (Past 12 Hours) Vital Signs Temp Pulse Resp BP Pulse Ox O2 Del Method 06/01/22 20:51 36.9 C 87 18 157/80 H 93 Room Air 06/01/22 14:29 36.9 C 80 16 130/75 93 Room Air PG Care Time/CCT Total # of Minutes Spent Total Time Spent with Patient: Total time spent is greater than 50% in coordination of care (as documented) at patient's floor/unit and/or counseling patient: Coding Level of Care Code 07169 SUB INP/OBS CARE 2/35MIN Diagnoses Prosthetic joint infection T84.50XA Postoperative back pain G89.18; M54.9 Diabetes mellitus, type 2 E11.9 CAD (coronary artery disease) I25.10 Depression F32.A GERD (gastroesophageal reflux disease) K21.9
[2022-06-02] MEDS: oxyCODONE HCL IR 5 MG TAB (IMMEDIATE RELEASE) PO PRN ×5 (01:31→20:42)
[2022-06-02] MEDS: HYDROmorphone INJ 1 MG/ML SYRINGE IV PRN ×5 (03:30→21:24)
[2022-06-02] MEDS: DOCUSATE SODIUM 100 MG CAP PO SCH ×2 (08:31→20:43)
[2022-06-02] MEDS: LOSARTAN POTASSIUM 50 MG TAB PO SCH (08:31)
[2022-06-02] MEDS: PARoxetine HCL 20 MG TAB PO SCH (08:31)
[2022-06-02] MEDS: FAMOTIDINE 20 MG TAB PO SCH ×2 (08:31→20:44)
[2022-06-02] MEDS: METOPROLOL SUCC 25MG EXT REL TAB PO SCH (08:31)
[2022-06-02] MEDS: GABAPENTIN 100 MG CAP PO SCH ×3 (08:31→20:44)
[2022-06-02] MEDS: MULTIVITAMIN TAB PO SCH (08:31)
[2022-06-02] MEDS: oxyCODONE HCL 10 MG TABCR (OxyCONTIN) PO SCH ×2 (08:36→20:46)
[2022-06-02] MEDS: INSULIN ASPART PER UNIT CHARGE SC SCH ×4 (08:37→20:49)
[2022-06-02 09:09] LABS: Hematocrit (blood only) 31.3 % (42.0-52.0); Hemoglobin 10.2 g/dl (14.0-18.0); Mean Corpuscular Hemoglobin 29.7 pg (25.0-34.0); Mean Corpuscular Hgb Conc 32.6 g/dL (32.0-36.0); Platelet Count 319 K/uL (130-400); RDW Coefficient of Variation 13.6 % (11.5-14.5); RDW Standard Deviation 45.1 fL (36.4-46.3); Red Blood Count 3.44 M/uL (4.70-6.10); White Blood Count 10.91 K/ul (4.8-10.8)
--- NOTE | 2022-06-02 09:45 | Orthopedic Progress Note ---
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 Most likely discontinue his drains tomorrow. Admission and Anticipated Discharge Date Admission Date: May 29, 2022 Subjective Back pain is improving. His ambulation is improving. Physical Exam Physical Exam: Patient is currently in bed. He has good strength testing lower extremities. Sensory is intact. Results & Data Vital Signs (Past 12 Hours) Vital Signs Temp Pulse Resp BP Pulse Ox O2 Del Method 06/02/22 07:22 36.9 C 85 16 128/77 94 Room Air
[2022-06-02 10:02] LABS: Calcium 8.5 mg/dl (8.6-10.3); Potassium 4.2 mmol/L (3.5-5.1)
[2022-06-02 10:08] LABS: BUN Creatinine Ratio 16.9 (10-20); Creatinine Clr Calc Pharmacy 146.5 ml/min; Est GFR (African American) 121.6 ml/min; Est GFR (Non-African American) 104.9 ml/min
[2022-06-02] MEDS: DAPTOmycin 700 MG in SYRINGE 0 ML IV SCH (13:38)
[2022-06-02] MEDS: AMITRIPTYLINE HCL 100 MG TAB PO SCH (20:43)
[2022-06-02] MEDS: SENNA 8.6 MG TAB PO SCH (20:44)
[2022-06-02] MEDS: MELATONIN 3 MG TAB PO SCH (20:46)
--- NOTE | 2022-06-02 22:49 | Hospitalist Progress Note ---
Date of Service June 02, 2022 Assessment & Plan (1) Prosthetic joint infection: Plan: acute infection, high risk , recent lumbar surgery 04/26/22 L3-S1, evacuation of hematoma 05/08/[address] office Dr Latham, pain in right shoulder, Ct shoulder multiloculated gas and fluid seen around the arthroplasty on Daptomycin and Zosyn parenteral medications for pain control Staph suggested by PCR and blood cultures. Intraoperative cultures are currently pending. Consultation to ID connect for further recommendations and continued management intra hospital course appreciate input from ID. awaiting cultures placed dressing on left toe Patient will likely have drains removed on 06/03 (2) Postoperative back pain: Plan: acute on chronic back pain, recent surgery and hemotoma evacuation Progressively getting worse since his latest operation. Concerning for hardware infection given shoulder infection. Will consult his Dr Purcell, orthopedic surgeon to determine if further imaging required vs. waiting final results for blood and intraoperative shoulder cultures. (3) Diabetes mellitus, type 2: Plan: No need to repeat this. Hold metformin basal bolus insulin Novolog: --Goal BSG Range: Low 110 mg/dL, High 140 mg/dL --Correction Factor: 45 mg/dL/unit No carb ratio --BSGs ACHS if eating, q6h if npo (4) CAD (coronary artery disease): Plan: Chronic and stable 2007 x 2 stents (LAD, Diagonal) 2011 (PADMINI D1) hold asprine Restart on aspirin post operatively when ok by orthopedics Continue metoprolol and losartan Restart atorvastatin when off daptomycin chronic stable hypertension (5) Depression: Plan: Chronc stable continue paroxetine (6) GERD (gastroesophageal reflux disease): Plan: chronic stable Continue famotidine 20mg PO BID Plan VTE Prophylaxis - deferred pre-operatively Disposition - admit to med/surg Admission and Anticipated Discharge Date Admission Date: May 29, 2022 Subjective 56 yo male reports feeling betyter. HIs pain is better controlled. Review of Systems Review of Systems: All systems reviewed & are unremarkable except as noted in HPI & below Physical Exam Physical Exam: Awake alert appropriate. He has pain in his right shoulder movement pain is back to move around. Card exam is regular without murmurs there is no peripheral stigmata of endocarditis at this time his abdomen is NABS soft and nontender his back is tender to touch there is no fluctuance purulence or erythema his extremities show eschars on his knees and feet he has distal pulses intact as well as sensation Results & Data Results & Data Vital Signs (Past 12 Hours) Vital Signs Temp Pulse Pulse Resp BP Pulse Ox O2 Del Method 06/02/22 21:24 Room Air 06/02/22 21:34 37.2 C 90 16 157/83 H 95 Room Air 06/02/22 14:58 36.8 C 94 H 16 123/74 95 Room Air PG Care Time/CCT Total # of Minutes Spent Total Time Spent with Patient: Total time spent is greater than 50% in coordination of care (as documented) at patient's floor/unit and/or counseling patient: Coding Level of Care Code 53058 SUB INP/OBS CARE 2/35MIN Diagnoses Prosthetic joint infection T84.50XA Postoperative back pain G89.18; M54.9 Diabetes mellitus, type 2 E11.9 CAD (coronary artery disease) I25.10 Depression F32.A GERD (gastroesophageal reflux disease) K21.9
[2022-06-03] MEDS: oxyCODONE HCL IR 5 MG TAB (IMMEDIATE RELEASE) PO PRN ×3 (00:11→16:12)
[2022-06-03] MEDS: HYDROmorphone INJ 1 MG/ML SYRINGE IV PRN ×5 (01:41→22:08)
--- NOTE | 2022-06-03 08:43 | Orthopedic Progress Note ---
Date of Service June 03, 2022 Assessment & Plan (1) Abscess in epidural space of lumbar spine: Plan: From a spine standpoint I encourage ambulation as tolerated. We will await medicine and infectious disease regarding final disposition antibiotics and discharge home. Admission and Anticipated Discharge Date Admission Date: May 29, 2022 Subjective Back pain controlled leg pain improved Physical Exam Physical Exam: Patient is sitting at the bedside. Is comfortable. EXTR strength testing. Results & Data Vital Signs (Past 12 Hours) Vital Signs Temp Pulse Pulse Resp BP Pulse Ox O2 Del Method 06/03/22 08:14 37.0 C 78 20 125/75 94 Room Air 06/02/22 21:24 Room Air 06/02/22 21:34 37.2 C 90 16 157/83 H 95 Room Air
[2022-06-03] MEDS: oxyCODONE HCL 10 MG TABCR (OxyCONTIN) PO SCH ×2 (09:03→20:52)
[2022-06-03] MEDS: DOCUSATE SODIUM 100 MG CAP PO SCH ×2 (09:03→20:37)
[2022-06-03] MEDS: MULTIVITAMIN TAB PO SCH (09:03)
[2022-06-03] MEDS: LOSARTAN POTASSIUM 50 MG TAB PO SCH (09:03)
[2022-06-03] MEDS: METOPROLOL SUCC 25MG EXT REL TAB PO SCH (09:03)
[2022-06-03] MEDS: GABAPENTIN 100 MG CAP PO SCH ×3 (09:03→20:38)
[2022-06-03] MEDS: PARoxetine HCL 20 MG TAB PO SCH (09:03)
[2022-06-03] MEDS: FAMOTIDINE 20 MG TAB PO SCH ×2 (09:03→20:38)
[2022-06-03] MEDS: INSULIN ASPART PER UNIT CHARGE SC SCH ×4 (09:06→20:51)
--- NOTE | 2022-06-03 10:32 | Infectious Disease Progress Nt ---
Date of Service June 03, 2022 Assessment & Plan (1) Prosthetic joint infection: Plan: ID consult requested for prosthetic shoulder infection in this 56-year-old male, past medical history of hypertension, diabetes type 2, depression, CAD, status post FL, degenerative disc disease, status post cervical fusion, status post lumbar fusion, status post right shoulder joint replacement, TKR, who was admitted for infected R shoulder. Patient had underwent revision posterior spinal fusion L3-S1 on 04/26 due to back pain. He presented back to the hospital on 05/05 with worsening back pain. MRI suggested postoperative seroma. Patient underwent evacuation of the seroma on 05/08 and was discharged on 05/10. There is no culture of fluid. 05/05 Bcxs were negative. Patient reported persistent back pain as well as new onset left hip pain afterwards. He recently had completed a short burst of steroids as an outpatient. He reported several falls since hospital discharge. He denied any fever, bowel or bladder incontinence or saddle anesthesia. Patient was then admitted 05/23 with these complaints. Orthopedics was consulted. Left hip x-ray showed no acute fracture or dislocation. No orthopedic surgery intervention was thought to be needed and patient was discharged on 05/25. On 05/29 patient was seen by orthopedic surgery as outpatient and reported significant right shoulder pain for several days. It was noted that pt had recently been on steroids. Patient had history of right reverse shoulder arthroplasty 10/08/2021 for chronic rotator cuff tear without subsequent issues. On orthopedic exam, right shoulder had "some redness and hardness on the anterior aspect of his shoulder". Right shoulder x-ray showed prosthesis in the alignmentno fracture or loosening. Per orthopedic note, patient was started on amoxicillin 500 mg 3 times [address] day [address] of shoulder ordered. #MSSA bacteremia -in setting of infection R shoulder and L spine- hardware involvement -prior to admission, CT of the right shoulder without IV contrast showed multiloculated gas and fluid seen around the arthroplasty and extending anteriorly along the humeral shaft. Patient was therefore admitted with plan for surgery. It was noted that patient took 3 doses amoxicillin prior to admission. -On 05/30, patient underwent 1 stage revision of right reverse total shoulder with component removal, irrigation and debridement and reimplantation of the right reverse total shoulder arthroplasty. A large amount of purulent discharge was noted. -Patient is currently on daptomycin -05/29 blood cultures with MSSA in 1 of 2 sets. 05/30 OR shoulder wound cultures with MSSA in both cultures. 05/31 OR back cx with MSSA. -05/31 Bcxs NGTD -05/30 MRI lumbar spine shows possible mild increase in size of previously noted postsurgical fluid collection which may represent a seroma. Previously noted epidural fluid collection at L2-L3 is less conspicuous and noted to be in continuity with the postoperative collection. 05/30 shoulder x-ray shows intact reverse total right shoulder arthroplasty. - on 05/31, pt underwent I&D of epidural abscess- gross purulence noted, abx beads placed, KAVITA drains placed Plan Rec: Will change daptomycin to nafcillin 2 g IV q4 (this should be ordered as 12 g IV continuous over 24 hours upon discharge for pt convenience). Repeat Bcxs 05/31 NGTD so ok to place PICC. Will also addrifampin 300mg po q12now given retained hardware. Plan will be 6 weeks for nafcillin plus rifampin dated from OR, with weekly CBC with diff, CMP, ESR and CRP- then transition to cefazolin PO (or other targeted MSSA abx) plus rifampin for at least several months, with consideration for further prison abx suppression. At this time, there are no significant drug interactions between rifampin and current meds. Discussed with pt that he should let his doctors know of rifampin use if prescribed any new meds. Advised pt that rifampin can make bodily fluids orange-red. Advised pt that it is essential that he followup with ID after discharge given that he should remain on rifampin plus another antibiotic potentially for months given retained hardware. He states he can f/u at [facility]. He should call to arrange for ID appt there as soon as possible to establish care. Admission and Anticipated Discharge Date Admission Date: May 29, 2022 Subjective Subsequent visit was provided via telemedicine using two-way real-time interactive telecommunication between the patient and the telemedicine provider. For the duration of the visit, the provider was performing the assessment from a different facility than the patient. This includesuse of bluetooth stethoscope forauscultationperformed by the telepresenter that the tele medicine provider can hear if described in the physical exam. Foreign Languages Department Chair contact information: Please call [facility] . (Phone Number For Physician Use Only) After establishing a telemedicine visit, patient was: Patient was verified with two unique identifiers, Patient/authorized rep acknowledged consent and understanding and Gave permission to continue telehealth session Time Spent with Patient: Subsequent => 25 min Pt denies fever, chills, abd pain or diarrhea reports R shoulder dressing has been changed by his surgeon- drain was removed reports back dressing has not been changed since OR- 1 KAVITA drain remains Physical Exam Physical Exam: PE: Gen: Awake, alert, NAD HEENT: anicteric Resp: no resp distress on RA Abd: Soft, NT/ND Extr: no LE edema. R plantar 1st toe with shallow open wound- no cellulitis. Tannish drainage on dressing. R shoulder with dressing c/d/i Skin: LUE peripheral IVs OK. Back OR dressing c/d/i KAVITA drain with serosanguineous output. Results & Data Vital Signs (Past 12 Hours) Vital Signs Temp Pulse Resp BP Pulse Ox O2 Del Method 06/03/22 08:14 37.0 C 78 20 125/75 94 Room Air Laboratory Results 05/31/22 Unknown Gram Stain - Final Back Aerobic and Anaerobic Culture - Preliminary Staphylococcus aureus 05/30/22 13:44 Gram Stain - Final Shoulder,Right Aerobic and Anaerobic Culture - Preliminary Staphylococcus aureus 05/30/22 13:44 Gram Stain - Final Shoulder,Right Aerobic and Anaerobic Culture - Preliminary Staphylococcus aureus 05/31/22 12:56 Aerobic Blood Culture - Preliminary Blood No growth in Aerobic bottle after 48 hours. Anaerobic Blood Culture - Preliminary No growth in Anaerobic bottle after 48 hours. 05/31/22 13:10 Aerobic Blood Culture - Preliminary Blood No growth in Aerobic bottle after 48 hours. Anaerobic Blood Culture - Preliminary No growth in Anaerobic bottle after 48 hours. 06/03/22 06/02/22 06/02/22 08:03 20:22 17:04 POC Glucose 146 H 156 H 162 H 06/02/22 12:06 POC Glucose 139 H Medications Administered Current Medications Acetaminophen (Acetaminophen 325 Mg Tab) 650 mg PO Q4H PRN PRN Reason: pain (1-4)/fever Stop: 06/28/22 14:58 Last Admin: 05/31/22 07:31 Dose: 650 mg Amitriptyline HCl (Amitriptyline Hcl 100 Mg Tab) 100 mg PO HS LATOYA Stop: 06/28/22 20:59 Last Admin: 06/02/22 20:43 Dose: 100 mg Bisacodyl (Bisacodyl 10 Mg Supp) 10 mg HI DAILY PRN PRN Reason: Constipation Stop: 06/29/22 17:26 Cyclobenzaprine HCl (Cyclobenzaprine Hcl 10 Mg Tab) 10 mg PO TID PRN PRN Reason: muscle spasm Stop: 06/28/22 15:41 Dextrose (Dextrose 50% 50 Ml Syringe) 25 - 50 ml IV UD PRN; Protocol PRN Reason: Hypoglycemia Protocol Stop: 06/28/22 15:56 Docusate Sodium (Docusate Sodium 100 Mg Cap) 100 mg PO BID LATOYA Stop: 06/29/22 20:59 Last Admin: 06/03/22 09:03 Dose: 100 mg Famotidine (Famotidine 20 Mg Tab) 20 mg PO BID LATOYA Stop: 06/28/22 20:59 Last Admin: 06/03/22 09:03 Dose: 20 mg Gabapentin (Gabapentin 100 Mg Cap) 100 mg PO TID LATOYA Stop: 06/28/22 20:59 Last Admin: 06/03/22 09:03 Dose: 100 mg Glucagon (Glucagon For Inj 1 Mg Vial) 1 mg SQ UD PRN; Protocol PRN Reason: Hypoglycemia Protocol Stop: 06/28/22 15:56 Glucose (Glucose 10 Tab/Tube) 4 - 8 tab PO UD PRN; Protocol PRN Reason: Hypoglycemia Treatment Stop: 06/28/22 15:56 Glucose (Glucose 40% Gel 15 Gm Tube) 15 - 30 gm PO UD PRN; Protocol PRN Reason: Hypoglycemia Protocol Stop: 06/28/22 15:56 Hydromorphone HCl (Hydromorphone Inj 0.5 Mg/0.5 Ml Syr) 0.5 mg IV Q4H PRN PRN Reason: Pain (5-7) Stop: 06/12/22 20:41 Hydromorphone HCl (Hydromorphone Inj 1 Mg/Ml Syringe) 1 mg IV Q4H PRN PRN Reason: Pain (8-10) Stop: 06/12/22 20:41 Last Admin: 06/03/22 07:23 Dose: 1 mg Daptomycin 700 mg/ Syringe 14 mls @ 7 mls/min IV Q24H LATOYA; Protocol Stop: 07/12/22 12:59 Last Admin: 06/02/22 13:38 Dose: 7 mls/min Insulin Aspart (Insulin Aspart Per Unit Charge) 0 units SC ACHS [facility] Stop: 07/03/22 11:29 Losartan Potassium (Losartan Potassium 50 Mg Tab) 50 mg PO QAM [facility] Stop: 06/30/22 08:59 Last Admin: 06/03/22 09:03 Dose: 50 mg Magnesium Hydroxide (Magnesium Hydroxide Susp 30 Ml Udc) 30 ml PO Q6H PRN PRN Reason: Constipation Stop: 06/29/22 17:26 Melatonin (Melatonin 3 Mg Tab) 9 mg PO HS [facility] Stop: 06/28/22 20:59 Last Admin: 06/02/22 20:46 Dose: 9 mg Metoclopramide HCl (Metoclopramide Hcl Inj 5 Mg/Ml 2 Ml Vial) 10 mg IV Q6H PRN PRN Reason: Nausea And Vomiting Stop: 06/29/22 17:26 Metoprolol Succinate (Metoprolol Succ 25mg Ext Rel Tab) [facility] [place] Stop: 06/29/22 08:59 Last Admin: 06/03/22 09:03 Dose: 25 mg Miscellaneous (Carbohydrates For Hypoglycemia ) 15 - 30 gm PO UD PRN PRN Reason: Hypoglycemia Protocol Stop: 06/28/22 15:56 Multivitamins (Multivitamin Tab) 1 tab PO [facility] Stop: 06/30/22 08:59 Last Admin: 06/03/22 09:03 Dose: 1 tab Naloxone HCl (Naloxone Hcl 0.4 Mg/1 Ml Vial/Carp) 0.4 mg IV PRN PRN PRN Reason: Oversedation/Resp Depression Stop: 06/28/22 20:42 Naloxone HCl (Naloxone Hcl 0.4 Mg/1 Ml Vial/Carp) 0.1 mg IV Q5M PRN PRN Reason: Oversedation/Resp Depression Stop: 06/29/22 17:26 Oxycodone HCl (Oxycodone Hcl Ir 5 Mg Tab (Immediate Release)) 10 mg PO Q4H PRN PRN Reason: pain Stop: 06/13/22 17:26 Last Admin: 06/03/22 11:11 Dose: 10 mg Oxycodone HCl (Oxycodone Hcl 10 Mg Tabcr (Oxycontin)) 10 mg PO BID [facility] Stop: 06/15/22 20:59 Last Admin: 06/03/22 09:03 Dose: 10 mg Paroxetine HCl (Paroxetine Hcl 20 Mg Tab) 30 mg PO QAM LATOYA Stop: 06/29/22 08:59 Last Admin: 06/03/22 09:03 Dose: 30 mg Sennosides (Senna 8.6 Mg Tab) 17.2 mg PO [facility] Stop: 06/29/22 20:59 Last Admin: 06/02/22 20:44 Dose: 17.2 mg
[2022-06-03] MEDS: NAFCILLIN SODIUM 2,000 MG in DEXTROSE 5% 100 ML IV SCH ×3 (12:45→20:52)
[2022-06-03] MEDS: rifAMPin 300 MG CAPSULE PO SCH ×2 (12:46→20:38)
--- NOTE | 2022-06-03 15:59 | Orthopedic Progress Note ---
Date of Service June 03, 2022 Assessment & Plan (1) Prosthetic joint infection: Overall is doing fairly well with regards to his right shoulder. He is on nafcillin and rifampin. He will be in a sling for 3 weeks. Full orthopedic discharge instructions were placed in the discharge summary. He is orthopedic ally stable for discharge when medically ready. He will follow-up orthopedics in 2 weeks. Linda Serna was seen and examined at bedside this afternoon. Overall is doing okay. His shoulder is sore but is currently not as painful as it was when he came in. His antibiotics have been switched to IV nafcillin and oral rifampin. He started walking some today. He has no new complaints.. Review of Systems All systems reviewed & are unremarkable except as noted in HPI & below. Physical Exam On physical examination of the right shoulder, the dressing is clean dry. He has active motion of his hand and his wrist. He is wearing his sling as instructed.. Results & Data Results & Data Laboratory Results . Diagnostic Findings . PG Care Time/CCT Total # of Minutes Spent Total Time Spent with Patient: Total time spent is greater than 50% in coordination of care (as documented) at patient's floor/unit and/or counseling patient: Coding Level of Care Code 68075 Post Operative Follow-Up Diagnoses Prosthetic joint infection T84.50XA
[2022-06-03] MEDS: MELATONIN 3 MG TAB PO SCH (20:36)
[2022-06-03] MEDS: AMITRIPTYLINE HCL 100 MG TAB PO SCH (20:38)
[2022-06-03] MEDS: SENNA 8.6 MG TAB PO SCH (20:39)
--- NOTE | 2022-06-03 21:12 | Hospitalist Progress Note ---
Date of Service June 03, 2022 Assessment & Plan (1) Prosthetic joint infection: Plan: acute infection, high risk , recent lumbar surgery 04/26/22 L3-S1, evacuation of hematoma 05/08/[address] office Dr Latham, pain in right shoulder, Ct shoulder multiloculated gas and fluid seen around the arthroplasty on Daptomycin and Zosyn parenteral medications for pain control Staph suggested by PCR and blood cultures. Intraoperative cultures are currently pending. Consultation to ID connect for further recommendations and continued management intra hospital course appreciate input from ID. awaiting cultures placed dressing on left toe Patient will likely have drains removed on 06/03 Patient will need PICC line prior to discharge (2) Postoperative back pain: Plan: acute on chronic back pain, recent surgery and hemotoma evacuation Progressively getting worse since his latest operation. Concerning for hardware infection given shoulder infection. Will consult his Dr Purcell, orthopedic surgeon to determine if further imaging required vs. waiting final results for blood and intraoperative shoulder cultures. (3) Diabetes mellitus, type 2: Plan: No need to repeat this. Hold metformin basal bolus insulin Novolog: --Goal BSG Range: Low 110 mg/dL, High 140 mg/dL --Correction Factor: 45 mg/dL/unit No carb ratio --BSGs ACHS if eating, q6h if npo (4) CAD (coronary artery disease): Plan: Chronic and stable 2007 x 2 stents (LAD, Diagonal) 2011 (PADMINI D1) hold asprine Restart on aspirin post operatively when ok by orthopedics Continue metoprolol and losartan Restart atorvastatin when off daptomycin chronic stable hypertension (5) Depression: Plan: Chronc stable continue paroxetine (6) GERD (gastroesophageal reflux disease): Plan: chronic stable Continue famotidine 20mg PO BID Plan VTE Prophylaxis - deferred pre-operatively Disposition - admit to med/surg Admission and Anticipated Discharge Date Admission Date: May 29, 2022 Subjective Patient reports no new symptoms. Review of Systems Review of Systems: All systems reviewed & are unremarkable except as noted in HPI & below Physical Exam Physical Exam: Awake alert appropriate. He has pain in his right shoulder movement pain is back to move around. Card exam is regular without murmurs there is no peripheral stigmata of endocarditis at this time his abdomen is NABS soft and nontender his back is tender to touch there is no fluctuance purulence or erythema his extremities show eschars on his knees and feet he has distal pulses intact as well as sensation Results & Data Results & Data Vital Signs (Past 12 Hours) Vital Signs Temp Pulse Resp BP Pulse Ox O2 Del Method 06/03/22 14:28 37.1 C 74 16 116/69 94 Room Air PG Care Time/CCT Total # of Minutes Spent Total Time Spent with Patient: Total time spent is greater than 50% in coordination of care (as documented) at patient's floor/unit and/or counseling patient: Coding Level of Care Code 84808 SUB INP/OBS CARE 2/35MIN Diagnoses Prosthetic joint infection T84.50XA Postoperative back pain G89.18; M54.9 Diabetes mellitus, type 2 E11.9 CAD (coronary artery disease) I25.10 Depression F32.A GERD (gastroesophageal reflux disease) K21.9
[2022-06-04] MEDS: NAFCILLIN SODIUM 2,000 MG in DEXTROSE 5% 100 ML IV SCH ×6 (02:02→21:11)
[2022-06-04] MEDS: HYDROmorphone INJ 1 MG/ML SYRINGE IV PRN ×6 (02:03→22:20)
[2022-06-04] MEDS: LOSARTAN POTASSIUM 50 MG TAB PO SCH (09:21)
[2022-06-04] MEDS: rifAMPin 300 MG CAPSULE PO SCH ×2 (09:21→21:13)
[2022-06-04] MEDS: GABAPENTIN 100 MG CAP PO SCH ×3 (09:21→21:13)
[2022-06-04] MEDS: MULTIVITAMIN TAB PO SCH (09:22)
[2022-06-04] MEDS: METOPROLOL SUCC 25MG EXT REL TAB PO SCH (09:22)
[2022-06-04] MEDS: DOCUSATE SODIUM 100 MG CAP PO SCH ×2 (09:22→21:12)
[2022-06-04] MEDS: PARoxetine HCL 20 MG TAB PO SCH (09:22)
[2022-06-04] MEDS: FAMOTIDINE 20 MG TAB PO SCH ×2 (09:22→21:01)
[2022-06-04] MEDS: INSULIN ASPART PER UNIT CHARGE SC SCH ×4 (09:40→21:10)
--- NOTE | 2022-06-04 09:42 | Orthopedic Progress Note ---
Date of Service June 04, 2022 Assessment & Plan (1) Abscess in epidural space of lumbar spine: Plan: This time continue to encourage walking as tolerated. We will maintain the KAVITA drain. Admission and Anticipated Discharge Date Admission Date: May 29, 2022 Subjective Back pain is controlled. He is ambulating the halls. Physical Exam Physical Exam: Patient appears comfortable. KAVITA drain is functioning. Neurologically intact testing. Results & Data Vital Signs (Past 12 Hours) Vital Signs Temp Pulse Resp BP Pulse Ox O2 Del Method 06/04/22 07:54 36.8 C 81 18 134/81 100 Room Air 06/03/22 23:45 37.5 C 85 14 138/80 95 Room Air
[2022-06-04] MEDS: oxyCODONE HCL 10 MG TABCR (OxyCONTIN) PO SCH ×2 (10:08→21:11)
[2022-06-04] MEDS ORDERED: INSULIN ASPART PER UNIT CHARGE SC ONE (10:37)
[2022-06-04] MEDS: oxyCODONE HCL IR 5 MG TAB (IMMEDIATE RELEASE) PO PRN ×3 (11:36→21:00)
[2022-06-04] MEDS: AMITRIPTYLINE HCL 100 MG TAB PO SCH (21:12)
[2022-06-04] MEDS: SENNA 8.6 MG TAB PO SCH (21:14)
[2022-06-04] MEDS: MELATONIN 3 MG TAB PO SCH (21:15)
--- NOTE | 2022-06-04 22:34 | Hospitalist Progress Note ---
Date of Service June 04, 2022 Assessment & Plan (1) Prosthetic joint infection: Plan: acute infection, high risk , recent lumbar surgery 04/26/22 L3-S1, evacuation of hematoma 05/08/[address] outpt office Dr Latham, pain in right shoulder, Ct shoulder multiloculated gas and fluid seen around the arthroplasty on Daptomycin and Zosyn parenteral medications for pain control Staph suggested by PCR and blood cultures. Intraoperative cultures are currently pending. Consultation to ID connect for further recommendations and continued management intra hospital course appreciate input from ID. awaiting cultures placed dressing on left toe Patient will likely have drains removed on 06/03 PICC line consent obtained. (2) Postoperative back pain: Plan: acute on chronic back pain, recent surgery and hemotoma evacuation Progressively getting worse since his latest operation. Concerning for hardware infection given shoulder infection. Will consult his Dr Purcell, orthopedic surgeon to determine if further imaging required vs. waiting final results for blood and intraoperative shoulder cultures. (3) Diabetes mellitus, type 2: Plan: No need to repeat this. Hold metformin basal bolus insulin Novolog: --Goal BSG Range: Low 110 mg/dL, High 140 mg/dL --Correction Factor: 45 mg/dL/unit No carb ratio --BSGs ACHS if eating, q6h if npo (4) CAD (coronary artery disease): Plan: Chronic and stable 2007 x 2 stents (LAD, Diagonal) 2011 (PADMINI D1) hold asprine Restart on aspirin post operatively when ok by orthopedics Continue metoprolol and losartan Restart atorvastatin when off daptomycin chronic stable hypertension (5) Depression: Plan: Chronc stable continue paroxetine (6) GERD (gastroesophageal reflux disease): Plan: chronic stable Continue famotidine 20mg PO BID Plan VTE Prophylaxis - deferred pre-operatively Admission and Anticipated Discharge Date Admission Date: May 29, 2022 Subjective 56 yo male reports no new symptoms. Review of Systems Review of Systems: All systems reviewed & are unremarkable except as noted in HPI & below Physical Exam Physical Exam: Awake alert appropriate. His pain is better controlled. Card exam is regular without murmurs there is no peripheral stigmata of endocarditis at this time his abdomen is NABS soft and nontender his back is tender to touch there is no fluctuance purulence or erythema his extremities show eschars on his knees and feet he has distal pulses intact as well as sensation Results & Data Results & Data Vital Signs (Past 12 Hours) Vital Signs Temp Pulse Resp BP Pulse Ox O2 Del Method 06/04/22 21:10 Room Air 06/04/22 20:52 37.2 C 87 17 129/73 96 Room Air 06/04/22 15:24 36.8 C 78 18 108/68 96 Room Air PG Care Time/CCT Total # of Minutes Spent Total Time Spent with Patient: Total time spent is greater than 50% in coordination of care (as documented) at patient's floor/unit and/or counseling patient: Coding Level of Care Code 20583 SUB INP/OBS CARE 2/35MIN Diagnoses Prosthetic joint infection T84.50XA Postoperative back pain G89.18; M54.9 Diabetes mellitus, type 2 E11.9 CAD (coronary artery disease) I25.10 Depression F32.A GERD (gastroesophageal reflux disease) K21.9
[2022-06-05] MEDS: NAFCILLIN SODIUM 2,000 MG in DEXTROSE 5% 100 ML IV SCH ×4 (00:13→13:05)
[2022-06-05] MEDS: oxyCODONE HCL IR 5 MG TAB (IMMEDIATE RELEASE) PO PRN ×4 (01:02→14:27)
[2022-06-05] MEDS: HYDROmorphone INJ 1 MG/ML SYRINGE IV PRN (02:29)
[2022-06-05 06:46] LABS: Hematocrit (blood only) 29.4 % (42.0-52.0); Hemoglobin 9.6 g/dl (14.0-18.0); Mean Corpuscular Hemoglobin 29.9 pg (25.0-34.0); Mean Corpuscular Hgb Conc 32.7 g/dL (32.0-36.0); Mean Corpuscular Volume 91.6 fL (80.0-100.0); Mean Platelet Volume 9.1 fL (9.4-12.4); Platelet Count 320 K/uL (130-400); RDW Coefficient of Variation 13.8 % (11.5-14.5); RDW Standard Deviation 46.6 fL (36.4-46.3); Red Blood Count 3.21 M/uL (4.70-6.10); White Blood Count 9.37 K/ul (4.8-10.8)
[2022-06-05 07:03] LABS: Calcium 8.5 mg/dl (8.6-10.3); Creatinine Clr Calc Pharmacy 138.7 ml/min; Est GFR (African American) 118.9 ml/min; Est GFR (Non-African American) 102.5 ml/min; Potassium 3.9 mmol/L (3.5-5.1)
[2022-06-05] MEDS: oxyCODONE HCL 10 MG TABCR (OxyCONTIN) PO SCH (08:43)
[2022-06-05] MEDS: ACETAMINOPHEN 325 MG TAB PO PRN (08:43)
[2022-06-05] MEDS: PARoxetine HCL 20 MG TAB PO SCH (08:45)
[2022-06-05] MEDS: METOPROLOL SUCC 25MG EXT REL TAB PO SCH (08:45)
[2022-06-05] MEDS: MULTIVITAMIN TAB PO SCH (08:46)
[2022-06-05] MEDS: LOSARTAN POTASSIUM 50 MG TAB PO SCH (08:46)
[2022-06-05] MEDS: FAMOTIDINE 20 MG TAB PO SCH (08:46)
[2022-06-05] MEDS: rifAMPin 300 MG CAPSULE PO SCH (08:46)
[2022-06-05] MEDS: GABAPENTIN 100 MG CAP PO SCH (08:46)
[2022-06-05] MEDS: DOCUSATE SODIUM 100 MG CAP PO SCH (08:47)
--- NOTE | 2022-06-05 08:48 | XRay Report ---
SINGLE VIEW CHEST CLINICAL HISTORY: PICC placement. FINDINGS: An AP, portable, upright chest radiograph is compared to study dated 05/05/2022. The examina tion is degraded by portable technique and apical lordotic positioning. A left-sided PICC line has be en placed. The tip of the catheter projects over the SVC. The cardiomediastinal silhouette is unremar kable. The lungs and pleural spaces are clear. No pneumothorax is seen. The bony thorax is grossly in tact. Fusion hardware is noted in the lower cervical spine. A right shoulder arthroplasty is in place . Skin clips overlie the right shoulder. IMPRESSION: 1. A left-sided PICC line has been placed as above. 2. The lungs are clear. ACT 112: Negative or not required by law. Electronically signed by: Terrence Chatman M.D. 06/05/2022 8:47 AM
[2022-06-05] MEDS: INSULIN ASPART PER UNIT CHARGE SC SCH ×2 (08:54→13:10)
--- NOTE | 2022-06-05 14:32 | Discharge Summary ---
Date of Service June 05, 2022 Admission HPI Per Admitting Provider Kareem Guan is a 56 year old male who presents as a direct admission on advice from Dr Latham with concerns for a right prosthetic shoulder infection after outpatient CT performed today. Initial right reverse total shoulder arthroplasty performed by Dr. Latham on October 08, 2022 due to massive chronic rotator cuff tear. Initially doing well after his shoulder surgery however started having pain 5 days ago. Progressively getting worse each day with less shoulder movement due to severe pain. No fever or chills. He was started on amoxicillin by Dr Latham prior to CT results today and he has taken three doses of this. This is on a back ground of recent back surgery and worsening back pain. He underwent revision back surgery with removal of posterior instrumentation and posterior spinal fusion L3-L4 and L5-S1 with placement of posterior segmental instrumentation L3-S1 on April [address] Purcell due to back pain with numbness/tingling in his lower extremities worse than prior to his initial surgery in 2020. Due to progressively worsening back pain he returned to the OR on May 08 for irrigation and debridement of lumbar hematoma. He reports progressive worsening of his back pain without radicular symptoms although he reports weakness in his legs. He fell both last Friday and Friday due to weakness and has grazes on both knees and after the latest fall has erythema on his right foot which has been improving. He denies any history of stroke. He reports having an DC in 2011 with three stents placed. He denies any chest pain or shortness of breath on exertion but also does not ambulate much. Per last cardiology note he should still be taking an aspirin but this appears to have fallen off his medication list at some point and he reports no longer taking this. Principal Diagnosis prosthetic joint infection Discharge Exam Awake alert appropriate. His pain is better controlled. Card exam is regular without murmurs there is no peripheral stigmata of endocarditis at this time his abdomen is NABS soft and nontender his back is tender to touch there is no fluctuance purulence or erythema his extremities show eschars on his knees and feet he has distal pulses intact as well as sensation Discharge Data Allergies Allergy/AdvReac Type Severity Reaction Status Date / Time shellfish derived Allergy Severe Throat Verified 05/23/22 11:07 swelling tramadol Allergy Mild Hives, Verified 05/23/22 11:07 dizziness, nausea acetaminophen AdvReac Mild Upset Verified 05/23/22 11:07 stomach Consultations 05/29/22 14:59 Consult Orthopedic Surgery Routine 05/29/22 15:54 Consult Orthopedic Surgery Routine 05/30/22 11:35 Consult Infectious Diseases Routine Procedures Performed Operation Date: 05/31/22 10:30 Actual Procedures p Incision and Drainage Lumbar(Not Applicable) - Mynor Purcell, Ordered Studies 05/30/22 08:28 MR lumbar spine wo con Routine Hospital Course (1) Prosthetic joint infection: acute infection, high risk , recent lumbar surgery 04/26/22 L3-S1, evacuation of hematoma 05/08/[address]pt office Dr Latham, pain in right shoulder, Ct shoulder multiloculated gas and fluid seen around the arthroplasty on Daptomycin and Zosyn parenteral medications for pain control Staph suggested by PCR and blood cultures. Intraoperative cultures are currently pending. Consultation to ID connect for further recommendations and continued management intra hospital course appreciate input from ID. awaiting cultures placed dressing on left toe Patient will likely have drains removed on 06/03 PICC line consent obtained. will discharge on nafcillin and rifampin. DC instructions as below (2) Postoperative back pain: acute on chronic back pain, recent surgery and hemotoma evacuation Progressively getting worse since his latest operation. Concerning for hardware infection given shoulder infection. appreciate input by Dr. Bar (3) Diabetes mellitus, type 2: No need to repeat this. Hold metformin basal bolus insulin (4) CAD (coronary artery disease): Chronic and stable 2006 x 2 stents (LAD, Diagonal) 2011 (PADMINI D1) hold asprine Restart on aspirin post operatively when ok by orthopedics Continue metoprolol and losartan Restart atorvastatin when off daptomycin chronic stable hypertension (5) Depression: Chronc stable continue paroxetine (6) GERD (gastroesophageal reflux disease): chronic stable Continue famotidine 20mg PO BID Total Time Total Time Spent Total Time Spent (In Minutes): 32 Discharge Plan Discharge Items Patient Disposition: Home - Home Health Services Reason For Visit: Infection Right Reverse Total Shoulder Arthroplast Discharge Diagnosis: as above. Activity: Resume your previous activity Non-emergency contact: Primary Care Provider Call non-emergency contact if: you have any medication questions Follow-up/Referrals: Roberto Esposito [Primary Care Provider] - 06/14/22 2:05 pm ([facility]) Diet: Carb Consistent or DM2 and Heart Healthy Addtl Attending Provider Instructions: ACTIVITY RECOMMENDATIONS: SELF CARE INSTRUCTIONS AFTER THORACIC/LUMBAR FUSIONS 1. You may walk to your tolerance. It is good exercise for your legs and back. Expect some back and intermittent leg aches and pains. 2. You may perform "counter-top" level activities (make a sandwich, maricel with a project, etc.). 3. No bending or lifting of more than 10 pounds or back twisting of any nature (roll like a log when turning in bed). 4. You may ride in a car for 20-30 minutes at a time. No driving until after your first visit with your doctor. 5. Frequent changes of position and restricting sitting to 30 minutes at a time will help limit the amount of back spasms and stiffness you may experience. 6. You may discontinue the use of ambulatory aids (cane, crutches, etc.) once your strength and confidence allow. 7. You may bowling ball grader and marker the shower and let water strike your incision when you arrive home at least once daily. Do not take a tub bath, sit in a hot tub or go into a swimming pool until after your first recheck in the office. SPECIAL CARE INSTRUCTIONS: VERY IMPORTANT TO READ AND REVIEW A. Your surgical incision has been closed with a cosmetic suture under the skin that will dissolve in about 6 weeks. In 14 days, you can use a pair of clean scissors and cut the suture that is left outside of the skin at the ends of your incision. 1. The small skin tapes can be removed 7 days after surgery if they have not fallen off by that point. 2. You may keep the wound open to air as much as possible to promote healing after post-op day number 5 unless told otherwise by your doctor. 3. If you think the wound looks like it is becoming infected (redness or worsening drainage) and/or you are experiencing fever, chill or worsening back pain and muscle spasms, contact the office so that we may evaluate you as soon as possible. B. Complications are uncommon, but please contact us if you have any signs or symptoms of: 1. wound infection (fever higher than 102.5 degrees F, redness, separation of wound, drainage, or increasing pain from the incision) 2. blood clots in legs (pain, swelling, redness and warmth in legs) 3. urinary tract infection (fever higher than 102.5 degrees F, burning upon urination or increased frequency of urination) 4. nerve problems (inability to walk on your toes or heels, numbness, loss of bowel or bladder control) 5. any other symptoms that concern you C. Please call the office at if you have any concerns or questions about your operation or recovery. D. No smoking! Smoking drastically decreases the chance of a solid fusion. E. Do not take any anti-inflammatory medications (Indocin, Advil, Motrin, Aspirin, Naprosyn, etc.) as these may inhibit the chance of a solid fusion. Tylenol is okay to take for pain. MANAGING PAIN AFTER SPINAL SURGERY 1. Narcotic medication is intended for short-term use and will be provided for surgical pain. Surgical pain usually lasts for a period of 4-6 weeks. Narcotic medication includes Percocet, Vicodin, Darvocet, Tylenol #3 or Lortab. 2. Longer-term pain is more appropriately treated with non-narcotic medication such as Tylenol ES. 3. Muscle spasm is not appropriately treated with narcotics. Muscle relaxers such as Soma, Flexeril or Skelaxin can be used along with Tylenol ES. 4. Remember that we all live with some "aches and pains". This is not unusual or uncommon after an injury or as we get older. a. Back pain is expected and may include muscle spasms for 4 to 6 weeks after surgery. The pain should gradually improve. If the pain worsens for no apparent reason, please contact the office. b. Intermittent leg pain may also be experienced and should not be concerned about unless it worsens for no apparent reason. If so, please contact the office. 5. We will provide appropriate medication within the normal guidelines of their prescribed use. We will also be very cautious and aware of potential abuse and extended duration of patients' medication needs. a. Pain medications are for your comfort and to assist with sleep and rest so that the tissue can heal. They are not provided in order to return to normal activity and should not be used through the day. To do so or worsening pain at night can result from ongoing tissue damage and development of tolerance to the prescribed medicine. 6. Please allow 2-3 days to process refills. Prescriptions will not be mailed but must be picked up at the office. FOLLOW UP VISIT: Keep your scheduled follow-up appointment. Any questions, please call the office at . Addtl Geospatial Intelligence Analyst Provider Instructions: ORTHOPEDIC INSTRUCTIONS Activity Recommendations: Right arm sling for 3 weeks. May use your right hand and wrist while in the sling. Medications: Take the IV antibiotics and rifampin as prescribed. Dressing Care: Banks can be open to air as long as the incisions are not draining. If the incisions are draining or if the virgil are getting caught on your clothes then please cover the virgil with dry gauze. Change the dressings as necessary to keep the incision as dry as possible Showering: You may shower 5 days from the day of surgery as long as the incisions are not draining. Do not soak the incision. Let soapy water run over the virgil and pat them dry. Things To Watch For: 1. Drainage from the incision site that occurs more than one week after your surgery. 2. Increased redness at the incision site. 3. Fever above 102 degrees Fahrenheit. 4. Unusual chest pain or shortness of breath. 5. Call [facility] at with any of the above problems Follow-Up Visit: Follow-up with Dr. Latham's PA (Pratik Barron) 2-3 weeks after your day of surgery. He will remove your virgil and answer any questions. If you have any additional questions or concerns, Dr Latham is usually in the office at the same time and will be available Please call the office to set up an appointment for a time that works for you. Plan will be 6 weeks for nafcillin plus rifampin dated from OR, with weekly CBC with diff, CMP, ESR and CRP- Last day July 13 then transition to cefazolin PO (or other targeted MSSA abx) plus rifampin for at least several months, with consideration for further halfway abx suppression. Pending Studies at Discharge: No Stand-Alone Forms: My [facility] [employer], Pain - Opioid Pain Management, Smoking Cessation Medications and DC Order Prescriptions: New oxycodone-acetaminophen [Percocet] 10-325 mg tablet 1 tab PO Q8H PRN (Reason: pain) Qty: 30 0RF rifampin 300 mg Capsule 300 mg PO BID 35 Days Qty: 75 0RF Rx Instructions: Last date on 07/13 nafcillin 2 gram recon soln 2 g continuous IV infusion Q4H Qty: 10 0RF Continued oxycodone 10 mg tablet 10 mg PO Q6H PRN (Reason: pain) Qty: 30 0RF losartan [Cozaar] 50 mg Tablet 50 mg PO QAM atorvastatin [Lipitor] 80 mg Tablet 80 mg PO HS famotidine [Pepcid] 20 mg Tablet 20 mg PO BID gabapentin 100 mg Capsule 100 mg PO TID amitriptyline 100 mg Tablet 100 mg PO HS metoprolol succinate [Toprol XL] 25 mg Tablet Extended Release 24 Hr 25 mg PO QAM metformin 1,000 mg Tablet 1,000 mg PO BID lidocaine 5 % Adhesive Patch,Medicated 1 patch transdermal QAM Qty: 10 0RF cyclobenzaprine 10 mg Tablet 10 mg PO TID PRN (Reason: muscle spasm) Qty: 15 0RF lidocaine [Lidoderm] 5 % adhesive patch,medicated 1 patch topical DAILY Qty: 15 0RF Rx Instructions: leave on most painful area for up to 12 hrs melatonin 10 mg Tablet 10 mg PO HS paroxetine HCl [Paxil] 30 mg Tablet 30 mg PO QAM Discontinued amoxicillin 500 mg tablet 500 mg PO TID Qty: 90 0RF Discharge Orders: Discharge Order (Routine); Ordered 06/05/22 Ordered By: Ozzy Guevara/Other Patient Handouts: Managing Type 2 Diabetes, How to Check Your Blood Sugar Admission Data Admit Date/Time: 05/29/22 14:23 Attending Provider: Ozzy Zhu Admit Provider: Joshua Aguayo Primary Care Provider: Roberto Esposito Other Providers: Pratik Latham ; Mynor Purcell ; Sarah Fagan ; Will Neville ; Emily Mazariegos ; Camila Benton ; Marlene Larkin ; Emi Vital ; Kamille Narayan ; Angy Archuleta ; Elma Frederick ; [facility] Other Interventions: Discharge Summary Assessment (RN) Last Done: 06/05/22 14:49 Coding Level of Care Code 95665 INP/OBS DISCH >30 MIN Diagnoses Prosthetic joint infection T84.50XA Postoperative back pain G89.18; M54.9 Diabetes mellitus, type 2 E11.9 CAD (coronary artery disease) I25.10 Depression F32.A GERD (gastroesophageal reflux disease) K21.9
[2022-06-05] MEDS ORDERED: AMITRIPTYLINE HCL 50 MG TAB PO ONE (21:00)
--- NOTE | 2022-06-07 13:14 | Coding Query ---
DEBRIDEMENT DOCUMENTATION To promote full compliance with coding requirements relating to patient care, physician participation is requested in all cases of remote medical coder uncertainty. Please assist us with the question(s) below: Regarding the Debridement on 05/30/22: Please place an X in the parenthesis (x). If other, please document the finding: Type of Debridement: (X ) Excisional Debridement- Cutting away necrotic, devitalized tissue or slough to the level of viable tissue using a sharp instrument (i.e. scalpel, scissors, etc.) ( ) Non Excisional Debridement- The removal of necrotic, devitalized tissue or slough by means of scraping, mechanical brushing, flushing, or washing (i.e. irrigation,whirlpool);minor removal of loose fragments. ( ) Other (please specify): Depth of Debridement: ( ) Skin ( ) Skin and Subcutaneous Tissue ( ) Skin, Subcutaneous Tissue and Muscle (X ) Skin, Subcutaneous Tissue, Muscle and Bone ( ) Other (please specify): Thank you Flores MUNIZ
--- NOTE | 2022-06-07 13:15 | Coding Query ---
DEBRIDEMENT DOCUMENTATION To promote full compliance with coding requirements relating to patient care, physician participation is requested in all cases of trimming press operator uncertainty. Please assist us with the question(s) below: Regarding the Debridement on 05/31/22: Please place an X in the parenthesis (x). If other, please document the finding: Type of Debridement: ( ) Excisional Debridement- Cutting away necrotic, devitalized tissue or slough to the level of viable tissue using a sharp instrument (i.e. scalpel, scissors, etc.) ( x) Non Excisional Debridement- The removal of necrotic, devitalized tissue or slough by means of scraping, mechanical brushing, flushing, or washing (i.e. irrigation,whirlpool);minor removal of loose fragments. ( ) Other (please specify): Depth of Debridement: ( ) Skin ( ) Skin and Subcutaneous Tissue ( ) Skin, Subcutaneous Tissue and Muscle ( x) Skin, Subcutaneous Tissue, Muscle and Bone ( ) Other (please specify): Thank you Flores MUNIZ
--- NOTE | 2022-06-07 13:26 | Coding Query ---
CODING QUERY To promote full compliance with coding requirements relating to patient care, provider participation is requested in all cases of clinical coder uncertainty. Please assist us with the question(s) below: Coding Question(s): There is documentation of Epidural Lumbar Abscess, as well as documentation of prosthetic joint infection of the right TSA, and there is documentation in the Progress Notes and on Discharge Summary of, " Postoperative back pain: acute on chronic back pain, recent surgery and hemotoma evacuation Progressively getting worse since his latest operation. Concerning for hardware infection given shoulder infection.". Please specify below, in your clinical opinion, regarding Epidural Lumbar Abscess and documentation of concerning for hardware infection given shoulder infection: ( ) Epidural Lumbar Abscess and Hardware Infection of spinal hardware. Please specify further below, in your clinical opinion: ( ) complication resulting from the right shoulder TSA infection ( x ) complication resulting from the spinal hardware ( ) complication resulting from previous spinal procedure ( ) Not a Complication ( ) Other: Please Specify ( ) Epidural Lumbar Abscess with NO spinal hardware infection. Please specify further below, in your clinical opinion: ( ) complication resulting from the right shoulder TSA infection ( ) complication resulting from the spinal hardware (x ) complication resulting from previous spinal procedure ( ) Not a Complication ( ) Other: Please Specify ( ) Other: Please Specify . Please specify further below, in your clinical opinion: ( ) complication resulting from the right shoulder TSA infection ( ) complication resulting from the spinal hardware ( x) complication resulting from previous spinal procedure ( ) Not a Complication ( ) Other: Please Specify Physician's Response(s): Thank you Flores Shine Principal Diagnosis: "that condition established after study, to be chiefly responsible for occasioning the admission of the patient to the hospital for care." Co-Existing Principal Diagnosis: "when two or more diagnoses equally meet the criteria for principal diagnosis as determined by the circumstances of admission, diagnostic work up, and/or therapy provided, and the Alphabetic Index, Tabular List, or another coding guideline does not provide sequencing direction, any one of the diagnoses may be sequenced first." "When the physician has documented what appears to be a current diagnosis in the body of the record, but has not included the diagnosis in the final diagnostic statement, the physician should be asked whether the diagnosis should be added." (Source [facility]oding [facility] 2 QTR90. p3-4) CRISTY
== END 2022-06-05 15:45 | disposition home health service (06) | DRG 483 ==
LOC: SUATTDRO 14:23 → 3E 14:23 → EDSTATUS 05-30 13:00

== ENCOUNTER 2022-10-15 16:13 | Observation (INO) ==
[2022-10-15] MEDS ORDERED: oxyCODONE/ACETAMINOPHEN 10-325 TAB PO STA (17:12)
--- NOTE | 2022-10-15 17:14 | Emergency Department Note ---
History of Present Illness General Chief Complaint: Leg Injury/Pain Stated Complaint: CAN'T WALK, FALL, PAIN N LEGS Time Seen by Provider: 10/15/22 17:05 History of Present Illness Provider Complaint: back pain Onset (ago): week(s) 3 Duration: constant and progressively worsening Similar Symptoms Previously: Yes Location: lumbar spine Quality: + sharp, + dull, + aching and + throbbing Radiation: right leg Severity: severe Current Pain Intensity: 9 Relieved By: + none Exacerbated By: + movement and + walking Context: no while lifting, no trauma, no history of kidney stones or no IV drug use Associated symptoms: + weakness (Right lower extremity weakness patient states that his right leg keeps giving out) and + difficulty walking; no numbness, no loss of sensation in lower extremities, no increased urinary urgency, no increased urinary frequency, no fecal incontinence, no chills or no hematuria Patient states he was sent here by his orthospine doctor Dr. Purcell. Home Medications Medication Instructions Recorded Confirmed Type amitriptyline 100 mg tablet 100 mg PO HS 02/16/19 10/15/22 History atorvastatin 80 mg tablet (Lipitor) 80 mg PO HS 02/16/19 10/15/22 History famotidine 20 mg tablet (Pepcid) 20 mg PO BID 02/16/19 10/15/22 History metoprolol succinate 25 mg 25 mg PO [facility] 02/23/19 10/15/22 History tablet,extended release 24 hr (Toprol XL) metformin 1,000 mg tablet 1,000 mg PO BID 02/29/20 10/15/22 History melatonin 10 mg tablet 10 mg PO 09/07/21 10/15/22 History paroxetine HCl 30 mg tablet (Paxil) 30 mg PO QAM 04/05/22 10/15/22 History cyclobenzaprine 10 mg tablet 10 mg PO TID PRN muscle spasm #15 05/25/22 10/15/22 Rx tabs oxycodone 10 mg tablet 10 mg PO Q6H PRN pain #10 tabs 09/27/22 10/15/22 Rx celecoxib 200 mg capsule 200 mg PO BID 10/15/22 10/15/22 History doxycycline monohydrate 100 mg 100 mg PO BID 10/15/22 10/15/22 History capsule gabapentin 300 mg capsule 300 mg PO BID 10/15/22 10/15/22 History losartan 100 mg tablet 100 mg PO DAILY 10/15/22 10/15/22 History Allergies Allergy/AdvReac Type Severity Reaction Status Date / Time shellfish derived Allergy Severe Throat Verified 09/17/22 15:05 swelling tramadol Allergy Mild Hives, Verified 09/17/22 15:05 dizziness, nausea acetaminophen AdvReac Mild Upset Verified 09/17/22 15:05 stomach Past Med/Surg History Medical History CAD (coronary artery disease) 2007 x 2 stents (LAD, Diagonal) 2012 (PADMINI D1) cardiac stents x3 total (most recent stent 2011) No recent issues Degenerative disc disease s/p cervical fusion Depression Diabetes mellitus, type 2 NIDDM GERD (gastroesophageal reflux disease) controlled, stable per pt Hyperlipidemia Hypertension Myocardial Infarction 2012 > stents SIDDHARTHA (obstructive sleep apnea) pt states the last sleep study was negative Surgical History Difficult intubation Right reverse total shoulder replacement (10/08/21): Glidescope#3, ETT 7.5 + PNB at [facility]. *Difficult airway* per anesthesia record comments. No issues noted per post-op anesthesia progress note. Fusion of spine ACDF C6-C7, C5 corpectomy: 08/08/10: MAC#4, ETT 7.5 at [facility] History of cardiac cath 2006 x 2 stents (LAD, Diagonal) 2011 (PADMINI D1) History of colonoscopy History of esophageal dilatation History of esophagogastroduodenoscopy (EGD) History of hip surgery right hip (as a child) History of lumbar fusion 10/04/2020: elective glidescope 3. ETT 8.0. History of repair of rotator cuff right History of reverse total replacement of right shoulder joint Right reverse total shoulder replacement (10/08/21): Glidescope#3, ETT 7.5 + PNB at [facility]. *Difficult airway* per anesthesia record comments. No issues noted per post-op anesthesia progress note. History of tooth extraction History of total knee replacement right knee S/P arthroscopy of right shoulder 03/18/19. 02/29/20. LMA#5. Family History Father Family history of diabetes mellitus Other No family history of adverse response to anesthesia Social History Smoking Status: Never smoker Tobacco Type: Cigarettes Age Started Using Tobacco: 19; Age Quit Using Tobacco: 56; Second Hand Exposure: No; Do You Dip or Chew Tobacco: No; Hx Alcohol Use: No Hx Substance Use: No Preferred Language: Maltese Communication Ability: Effective Hearing Ability: Normal Coil Winder Required: No Beliefs That Will Affect Care: None marital status: Current Living Situation: Spouse Feels Safe at Home: Yes Diet: ideal protein caffeine: Yes during the past year weight has: decreased > 10 lbs Assistive Devices: None Physical Exam Vital Signs Vital Signs - 24 hr 10/15/22 16:20 10/15/22 17:23 10/15/22 19:46 Temperature 36.8 C Temperature Source Temporal Artery Scan Pulse Rate 94 H 85 Pulse Rate [Right Finger] 82 Respiratory Rate 18 16 17 Respiratory Effort / Characteristics Respiratory Depth Blood Pressure 138/83 Blood Pressure [Right Arm] 133/80 Blood Pressure Mean 101 Blood Pressure Mean [Right Arm] 97 Pulse Oximetry 98 97 97 Oxygen Delivery Method Room Air Room Air Room Air Sepsis Recent Fever Within 48 Hours No Sepsis New/Unexplained Change in Mental Status No Sepsis Action Taken by Nursing No Action Required 10/15/22 19:46 Temperature Temperature Source Pulse Rate Pulse Rate [Right Finger] 88 Respiratory Rate 19 Respiratory Effort / Characteristics Non-Labored Respiratory Depth Normal Blood Pressure Blood Pressure [Right Arm] 142/90 H Blood Pressure Mean Blood Pressure Mean [Right Arm] 107 Pulse Oximetry Oxygen Delivery Method Sepsis Recent Fever Within 48 Hours Sepsis New/Unexplained Change in Mental Status Sepsis Action Taken by Nursing Physical Exam GENERAL: oriented to person, place, and time. appears well-developed and well- nourished. HENT: Exam performed. - Head: Normocephalic and atraumatic. EYES: Conjunctivae and EOM are normal. Right eye exhibits no discharge. Left eye exhibits no discharge. No scleral icterus. NECK: Normal range of motion. Neck supple. No JVD present. CV: Normal rate, regular rhythm, normal heart sounds and intact distal pulses. There is no peripheral edema. Palpable radial pulses bue. PULM/CHEST: Effort normal and breath sounds normal. No respiratory distress. No stridor. no wheezes. no rales. ABD: The abdomen is soft. There is no tenderness. MUSC: No C or T-spine tenderness on palpation. Pain on palpation of the lumbar spine. NEURO: Motor and sensation grossly intact. No saddle anesthesia or pa resthesias. SKIN: Skin is warm and dry. He is not diaphoretic. PSYCH: normal mood and affect. Behavior is normal. Judgment and thought content normal. Course Course 1705: The patient was evaluated in room A10. A complete history and physical exam was performed No concern for cord compression, no urinary incontinence no urinary retention no saddle anesthesia. We will try to contact Dr. Purcell for further recommendations. 1738: Spoke with HANNAH Posey on-call for Dr. Purcell. She recommends getting basic labs ESR CRP and admitting to medicine and that Dr. Purcell's team can evaluate the patient in the morning. [facility] hospitalist Dr. Laureano's team will be notified of the admission. Administered Medications Discontinued Medications Hydromorphone HCl (Hydromorphone Inj 1 Mg/Ml Syringe) 1 mg IV NOW STA Stop: 10/15/22 17:44 Last Admin: 10/15/22 18:44 Dose: 1 mg Documented By: LUCINA Hydromorphone HCl (Hydromorphone Inj 1 Mg/Ml Syringe) 1 mg IV NOW STA Stop: 10/15/22 20:09 Last Admin: 10/15/22 20:14 Dose: 1 mg Documented By: CLARA Ondansetron HCl (Ondansetron Inj 2 Mg/Ml 2 Ml Vial) 4 mg IV NOW STA Stop: 10/15/22 17:44 Last Admin: 10/15/22 18:43 Dose: 4 mg Documented By: LUCINA Oxycodone/Acetaminophen (Oxycodone/Acetaminophen 10-325 Tab) 1 tab PO NOW STA Stop: 10/15/22 17:13 Last Admin: 10/15/22 17:24 Dose: 1 tab Documented By: LUCINA Medical Decision Making Laboratory Data Attestation: I reviewed the patient's lab results. 10/15/22 18:04 10/15/22 18:04 Lab Results 10/15/22 10/15/22 10/15/22 Range/Units 18:04 18:04 18:04 WBC 8.83 (4.8-10.8) K/ul RBC 3.62 L (4.70-6.10) M/uL Hgb 11.0 L (14.0-18.0) g/dl Hct 32.3 L (42.0-52.0) % MCV 89.2 (80.0-100.0) fL MCH 30.4 (25.0-34.0) pg MCHC 34.1 (32.0-36.0) g/dL RDW Std Deviation 43.9 (36.4-46.3) fL RDW Coeff of Padmini 13.4 (11.5-14.5) % Plt Count 170 (130-400) K/uL MPV 10.2 (9.4-12.4) fL Immature Gran % (Auto) 0.7 % Neut % (Auto) 61.1 % Lymph % (Auto) 22.3 % [place] % (Auto) 10.3 % Eos % (Auto) 4.8 % Baso % (Auto) 0.8 % Neut # (Auto) 5.40 (1.40-6.50) K/uL Lymph # (Auto) 1.97 (1.2-3.4) K/uL [place] # (Auto) 0.91 H (0.11-0.59) K/uL Eos # (Auto) 0.42 (0-0.50) K/uL Baso # (Auto) 0.07 (0-0.2) K/uL Immature Gran # (Auto) 0.06 (0.01-0.20) K/uL ESR 11 (0-20) mm/hr PT (9.0-12.0) Seconds INR (0.9-1.1) APTT (21.0-31.0) Seconds PTT Ratio Sodium 136 (136-145) mmol/L Potassium 4.9 (3.5-5.1) mmol/L Chloride 103 (98-107) mmol/L Carbon Dioxide 29 (21-32) mmol/L Anion Gap 4 (3-11) BUN 16 (6-23) mg/dl Creatinine 0.91 (0.6-1.4) mg/dl Est Cr Clr Drug Dosing 110.2 ml/min Est GFR ( Amer) 108.0 ml/min Est GFR (Non-Af Amer) 93.2 ml/min BUN/Creatinine Ratio 17.6 (10-20) Glucose 86 (70-99(Fasting)) mg/dl Calcium 9.1 (8.6-10.3) mg/dl C-Reactive Protein 0.95 H (0-0.5) mg/dl 10/15/22 Range/Units 18:04 WBC (4.8-10.8) K/ul RBC (4.70-6.10) M/uL Hgb (14.0-18.0) g/dl Hct (42.0-52.0) % MCV (80.0-100.0) fL MCH (25.0-34.0) pg MCHC (32.0-36.0) g/dL RDW Std Deviation (36.4-46.3) fL RDW Coeff of Padmini (11.5-14.5) % Plt Count (130-400) K/uL MPV (9.4-12.4) fL Immature Gran % (Auto) % Neut % (Auto) % Lymph % (Auto) % [place] % (Auto) % Eos % (Auto) % Baso % (Auto) % Neut # (Auto) (1.40-6.50) K/uL Lymph # (Auto) (1.2-3.4) K/uL [place] # (Auto) (0.11-0.59) K/uL Eos # (Auto) (0-0.50) K/uL Baso # (Auto) (0-0.2) K/uL Immature Gran # (Auto) (0.01-0.20) K/uL ESR (0-20) mm/hr PT 11.2 (9.0-12.0) Seconds INR 1.0 (0.9-1.1) APTT 25.8 (21.0-31.0) Seconds PTT Ratio 0.9 Sodium (136-145) mmol/L Potassium (3.5-5.1) mmol/L Chloride (98-107) mmol/L Carbon Dioxide (21-32) mmol/L Anion Gap (3-11) BUN (6-23) mg/dl Creatinine (0.6-1.4) mg/dl Est Cr Clr Drug Dosing ml/min Est GFR ( Amer) ml/min Est GFR (Non-Af Amer) ml/min BUN/Creatinine Ratio (10-20) Glucose (70-99(Fasting)) mg/dl Calcium (8.6-10.3) mg/dl C-Reactive Protein (0-0.5) mg/dl [facility] Narrative 1705: The patient was evaluated in room A10. A complete history and physical exam was performed No concern for cord compression, no urinary incontinence no urinary retention no saddle anesthesia. We will try to contact Dr. Purcell for further recommendations. 1738: Spoke with HANNAH Posey on-call for Dr. Purcell. She recommends getting basic labs ESR CRP and admitting to medicine and that Dr. Purcell's team can evaluate the patient in the morning. [facility] hospitalist Dr. Laureano's team will be notified of the admission. Impression & Plan Back pain Discharge Plan Visit Data Chief Complaint: Leg Injury/Pain Stated Complaint: CAN'T WALK, FALL, PAIN N LEGS ED Provider: Richie Ram Discharge Problem: Back pain Patient Disposition: Being Evaluated by Hospitalist Forms Stand Alone Forms: My [facility] Prescriptions Prescriptions: No Action atorvastatin [Lipitor] 80 mg Tablet 80 mg PO HS famotidine [Pepcid] 20 mg Tablet 20 mg PO BID amitriptyline 100 mg Tablet 100 mg PO HS metoprolol succinate [Toprol XL] 25 mg Tablet Extended Release 24 Hr 25 mg PO QAM metformin 1,000 mg Tablet 1,000 mg PO BID cyclobenzaprine 10 mg Tablet 10 mg PO TID PRN (Reason: muscle spasm) Qty: 15 0RF oxycodone 10 mg tablet 10 mg PO Q6H PRN (Reason: pain) Qty: 10 0RF celecoxib 200 mg capsule 200 mg PO BID doxycycline monohydrate 100 mg capsule 100 mg PO BID gabapentin 300 mg capsule 300 mg PO BID Rx Instructions: per pt he takes 3 times daily losartan 100 mg tablet 100 mg PO DAILY melatonin 10 mg Tablet 10 mg PO HS paroxetine HCl [Paxil] 30 mg Tablet 30 mg PO QAM Referrals Referrals: Roberto Esposito [Primary Care Provider] -
[2022-10-15] MEDS ORDERED: ONDANSETRON INJ 2 MG/ML 2 ML VIAL IV STA (17:43)
[2022-10-15] MEDS ORDERED: HYDROmorphone INJ 1 MG/ML SYRINGE IV STA ×2 (17:43→20:08)
[2022-10-15 18:26] LABS: Basophils # (auto) 0.07 K/uL (0-0.2); Basophils % (auto) 0.8 %; Eosinophils # (auto) 0.42 K/uL (0-0.50); Eosinophils % (auto) 4.8 %; Hematocrit (blood only) 32.3 % (42.0-52.0); Immature Granulocytes # (auto) 0.06 K/uL (0.01-0.20); Immature Granulocytes % (auto) 0.7 %; Lymphocytes # (auto) 1.97 K/uL (1.2-3.4); Lymphocytes % (auto) 22.3 %; Mean Corpuscular Hemoglobin 30.4 pg (25.0-34.0); Mean Corpuscular Hgb Conc 34.1 g/dL (32.0-36.0); Mean Corpuscular Volume 89.2 fL (80.0-100.0); Mean Platelet Volume 10.2 fL (9.4-12.4); Monocytes # (auto) 0.91 K/uL (0.11-0.59); Monocytes % (auto) 10.3 %; Neutrophils % (auto) 61.1 %; Platelet Count 170 K/uL (130-400); RDW Coefficient of Variation 13.4 % (11.5-14.5); RDW Standard Deviation 43.9 fL (36.4-46.3); Red Blood Count 3.62 M/uL (4.70-6.10); White Blood Count 8.83 K/ul (4.8-10.8)
[2022-10-15 18:37] LABS: BUN Creatinine Ratio 17.6 (10-20); C Reactive Protein 0.95 mg/dl (0-0.5); Calcium 9.1 mg/dl (8.6-10.3); Creatinine Clr Calc Pharmacy 110.2 ml/min; Est GFR (Non-African American) 93.2 ml/min; Potassium 4.9 mmol/L (3.5-5.1)
[2022-10-15 18:51] LABS: Partial Thromboplastin Ratio 0.9; Partial Thromboplastin Time 25.8 Seconds (21.0-31.0); Prothrombin Time 11.2 Seconds (9.0-12.0)
--- NOTE | 2022-10-15 18:54 | History & Physical Report ---
Date of Service October 15, 2022 Assessment & Plan (1) Neurogenic claudication due to lumbar spinal stenosis: Plan: Discussed with Dr Purcell and will repeat lumbar and thoracic spine MRIs for review by ortho spine in the morning Will need cardiac clearance prior to any surgery as his outpatient photography assistant mentioned getting a stress test prior to any surgery Continue amitriptyline, gabapentin, Celebrex. Start routine acetaminophen and add Dilaudid for breakthrough pain Continue his regular antibiotics for MSSA suppression B12 level with AM labs given significant peripheral neuropathy component Consult ortho spine (2) Diabetes mellitus, type 2: Plan: Last HbA1C 6.5 in April, will repeat wiht AM labs Hold metformin Novolog: --Goal BSG Range: Low 110 mg/dL, High 140 mg/dL --Correction Factor: 45 mg/dL/unit No carb ratio --BSGs ACHS if eating, q6h if npo (3) CAD (coronary artery disease): Plan: Unclear why he is not taking an aspirin. Continue metoprolol, losartan and atorvastatin (4) Hypertension: Plan: Continue his routine medications Plan VTE Prophyalxis - deferred pending any surgical decision Diet - T2DM Disposition - observation to med/surg History of Present Illness Chief Complaint: Leg weakness, falls Primary Care Provider: Roberto Esposito Kareem Guan is a 57 year old male with history of MSSA bacteremia who presents to the ER due to acute on chronic back pain with bilateral leg weakness and recurrent falls. He was recently admitted for the same back pain in September and was discharged after review by ortho spine as he was still on antibiotics for his prior MSSA in May with subsequent shoulder replacement. He is currently on oral doxycycline and follows with infectious disease Dr Rachel in [place] with no specific end to his antibiotic regimen. His pain and weakness have been steady up until the last 2 days with a sudden decline. He no longer has the strength to use a walker and has mainly been wheelchair bound. He fell twice today. Pain going down both legs but much worse on right side and most of this leg feels numb. Similar to symptoms he had in September but not worse. No urine or bowel incontinence. No fever or chills. He called Dr Purcell's office today due to worsening symptoms and was advised to come to the ER. He notes a history of PE in . Right leg always bigger since his knee replacement. Allergies Allergy/AdvReac Type Severity Reaction Status Date / Time shellfish derived Allergy Severe Throat Verified 09/17/22 15:05 swelling tramadol Allergy Mild Hives, Verified 09/17/22 15:05 dizziness, nausea acetaminophen AdvReac Mild Upset Verified 09/17/22 15:05 stomach Home Medications Medication Instructions Recorded Confirmed Type amitriptyline 100 mg tablet 100 mg PO HS 02/16/19 10/15/22 History atorvastatin 80 mg tablet (Lipitor) 80 mg PO HS 02/16/19 10/15/22 History famotidine 20 mg tablet (Pepcid) 20 mg PO BID 02/16/19 10/15/22 History metoprolol succinate 25 mg 25 mg PO QAM 02/23/19 10/15/22 History tablet,extended release 24 hr (Toprol XL) metformin 1,000 mg tablet 1,000 mg PO BID 02/29/20 10/15/22 History melatonin 10 mg tablet 10 mg PO HS 09/07/21 10/15/22 History paroxetine HCl 30 mg tablet (Paxil) 30 mg PO QAM 04/05/22 10/15/22 History cyclobenzaprine 10 mg tablet 10 mg PO TID PRN muscle spasm #15 05/25/22 10/15/22 Rx tabs oxycodone 10 mg tablet 10 mg PO Q6H PRN pain #10 tabs 09/27/22 10/15/22 Rx celecoxib 200 mg capsule 200 mg PO BID 10/15/22 10/15/22 History doxycycline monohydrate 100 mg 100 mg PO BID 10/15/22 10/15/22 History capsule gabapentin 300 mg capsule 300 mg PO BID 10/15/22 10/15/22 History losartan 100 mg tablet 100 mg PO DAILY 10/15/22 10/15/22 History Past Med/Surg History Medical History CAD (coronary artery disease) 2006 x 2 stents (LAD, Diagonal) 2011 (PADMINI D1) cardiac stents x3 total (most recent stent 2011) No recent issues Degenerative disc disease s/p cervical fusion Depression Diabetes mellitus, type 2 NIDDM GERD (gastroesophageal reflux disease) controlled, stable per pt Hyperlipidemia Hypertension Myocardial Infarction 2012 > stents SIDDHARTHA (obstructive sleep apnea) pt states the last sleep study was negative Surgical History Difficult intubation Right reverse total shoulder replacement (10/08/21): Glidescope#3, ETT 7.5 + PNB at [facility]. *Difficult airway* per anesthesia record comments. No issues noted per post-op anesthesia progress note. Fusion of spine ACDF C6-C7, C5 corpectomy: 08/08/10: MAC#4, ETT 7.5 at [facility] History of cardiac cath 2006 x 2 stents (LAD, Diagonal) 2011 (PADMINI D1) History of colonoscopy History of esophageal dilatation History of esophagogastroduodenoscopy (EGD) History of hip surgery right hip (as a child) History of lumbar fusion 10/04/2020: elective glidescope 3. ETT 8.0. History of repair of rotator cuff right History of reverse total replacement of right shoulder joint Right reverse total shoulder replacement (10/08/21): Glidescope#3, ETT 7.5 + PNB at [facility]. *Difficult airway* per anesthesia record comments. No issues noted per post-op anesthesia progress note. History of tooth extraction History of total knee replacement right knee S/P arthroscopy of right shoulder 03/18/19. 02/29/20. LMA#5. 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 Required: No Beliefs That Will Affect Care: None marital status: Current Living Situation: Spouse Other Information That Helps Us Care for You: No Feels Safe at Home: Yes Safety Concerns: Feels Safe At This Time Diet: ideal protein caffeine: Yes during the past year weight has: decreased > 10 lbs Assistive Devices: Glasses, Walker and Wheelchair Review of Systems Review of Systems: All systems reviewed & are unremarkable except as noted in HPI & below Physical Exam Constitutional: WD/WN, vitals as above Respiratory: normal respiratory effort, lungs clear to auscultation Cardiovascular: RRR, no murmur, no edema Gastrointestinal (Abdomen): normal bowel sounds, soft, nontender, no hepatosplenomegaly Skin: no rashes, warm and dry Neurologic: moves all extremities, + focal motor deficit (right ankle dorsiflexion 4/5, hip flex 3/5 (limited by pain)) and awake; not confused Speech / Cognition: normal speech Motor/Sensory: + sensory deficit (numbness b/l in peripheral distribution from knees down); no tremor Psychiatric: A+Ox3, euthymic affect Results & Data Results & Data Vital Signs (Past 12 Hours) Vital Signs Temp Pulse Pulse Resp BP BP Pulse Ox 10/15/22 17:23 82 16 133/80 97 10/15/22 16:20 36.8 C 94 H 18 138/83 98 O2 Del Method 10/15/22 17:23 Room Air 10/15/22 16:20 Room Air Laboratory Results Abnormal lab results 10/15/22 10/15/22 Range/Units 18:04 18:04 RBC 3.62 L (4.70-6.10) M/uL Hgb 11.0 L (14.0-18.0) g/dl Hct 32.3 L (42.0-52.0) % [place] # (Auto) 0.91 H (0.11-0.59) K/uL C-Reactive Protein 0.95 H (0-0.5) mg/dl Diagnostic Findings None Medications Administered ER Medications Given: Percocet 10/325mg 1 tab PO Dilaudid 1mg IV Ondansetron 4mg IV Code Status & VTE Plan Code Status Full VTE Prophylaxis Plan VTE Prophylaxis will be ordered: No PG Care Time/CCT Total # of Minutes Spent Total Time Spent with Patient: Total time spent is greater than 50% in coordination of care (as documented) at patient's floor/unit and/or counseling patient: Coding Level of Care Code 42673 INT INP/OBS CARE 2/55MIN Diagnoses Neurogenic claudication due to lumbar spinal stenosis M48.062 Diabetes mellitus, type 2 E11.9 CAD (coronary artery disease) I25.10 Hypertension I10
[2022-10-15] MEDS ORDERED: CARBOHYDRATES FOR HYPOGLYCEMIA PO PRN (20:52)
[2022-10-15] MEDS ORDERED: DEXTROSE 50% 50 ML SYRINGE IV PRN (20:52)
[2022-10-15] MEDS ORDERED: GLUCAGON FOR INJ 1 MG VIAL SQ PRN (20:52)
[2022-10-15] MEDS ORDERED: GLUCOSE 10 TAB/TUBE PO PRN (20:52)
[2022-10-15] MEDS ORDERED: GLUCOSE 40% GEL 15 GM TUBE PO PRN (20:52)
[2022-10-15] MEDS ORDERED: ACETAMINOPHEN 325 MG TAB PO PRN (21:27)
[2022-10-15] MEDS ORDERED: KETOROLAC 30 MG/ML VIAL IV PRN (21:28)
[2022-10-15] MEDS ORDERED: HYDROmorphone INJ 0.5 MG/0.5 ML SYR IV PRN ×2 (21:28→21:50)
[2022-10-15] MEDS: INSULIN ASPART PER UNIT CHARGE SC SCH (21:43)
[2022-10-15] MEDS ORDERED: LORazepam 2 MG/1 ML VIAL IV PRN (23:00)
[2022-10-15] MEDS: AMITRIPTYLINE HCL 100 MG TAB PO SCH (23:20)
[2022-10-15] MEDS: CeleBREX 200 MG CAP PO SCH (23:21)
[2022-10-15] MEDS: ACETAMINOPHEN 500 MG TAB PO SCH (23:21)
[2022-10-15] MEDS: MELATONIN 3 MG TAB PO SCH (23:22)
[2022-10-15] MEDS: ATORVASTATIN 40 MG TAB PO SCH (23:23)
[2022-10-15] MEDS: FAMOTIDINE 20 MG TAB PO SCH (23:23)
[2022-10-15] MEDS: GABAPENTIN 300 MG CAP PO SCH (23:24)
[2022-10-15] MEDS: DOXYCYCLINE HYCLATE 100 MG CAP PO SCH (23:24)
[2022-10-16] MEDS ORDERED: GADOBUTROL 65ML VIAL IV ONE (00:34)
--- NOTE | 2022-10-16 01:17 | Magnetic Resonance Report ---
Exam(s): MRI L SPINE W/WO Contrast IV Amt: 11cc gadavist EXAM: MR Lumbar Spine Without and With Intravenous Contrast CLINICAL HISTORY: Reason for exam: increasing bilateral leg weakness and pain. TECHNIQUE: Magnetic resonance images of the lumbar spine without and with intravenous contrast in multiple planes. CONTRAST: Patient received 11cc Gadavist of IV contrast COMPARISON: 09/27/2022 FINDINGS: Vertebrae: Unremarkable. No acute fracture. Interspaces: Postoperative changes L2 through S1 stable when compared to prior exam. There is severe stenosis at the level of the L2 interspace. Spinal cord: Unremarkable. Normal signal. No abnormal enhancement. Soft tissues: Unremarkable. DISCS/SPINAL CANAL/NEURAL FORAMINA: L1-L2: Unremarkable. No significant disc disease. No stenosis. L2-L3: See above L3-L4: Postoperative changes as described above. No significant disc disease. No stenosis. L4-L5: Postoperative changes as described above. No significant disc disease. No stenosis. L5-S1: Postoperative changes as described above. No significant disc disease. No stenosis. IMPRESSION: Severe canal stenosis at the L2 vertebral body this is similar when compared to prior exam Electronically signed by: Ash Castro MD 10/16/22 01:16 AM
[2022-10-16] MEDS: HYDROmorphone INJ 0.5 MG/0.5 ML SYR IV PRN ×6 (01:30→21:35)
--- NOTE | 2022-10-16 01:57 | Magnetic Resonance Report ---
Exam(s): MRI T SPINE W/WO Contrast IV Amt: 11cc gadavist EXAM: MR Thoracic Spine Without and With Intravenous Contrast CLINICAL HISTORY: Reason for exam: increasing bilateral leg weakness and pain. TECHNIQUE: Magnetic resonance images of the thoracic spine without and with intravenous contrast in multiple planes. CONTRAST: Patient received 11cc gadavist of IV contrast COMPARISON: MRI of the lumbar spine performed earlier on the same date. FINDINGS: Limitations: Exam limited secondary to motion degradation. Vertebrae: Unremarkable. No acute fracture. Discs/spinal canal/neural foramina: No acute findings. No significant disc disease. No spinal canal stenosis. Spinal cord: Unremarkable. Normal signal. No abnormal enhancement. Soft tissues: Unremarkable. IMPRESSION: No acute findings thoracic spine. Electronically signed by: Ash Castro MD 10/16/22 01:56 AM
[2022-10-16] MEDS: INSULIN ASPART PER UNIT CHARGE SC SCH ×4 (08:24→21:02)
[2022-10-16] MEDS: GABAPENTIN 300 MG CAP PO SCH ×2 (08:26→21:00)
[2022-10-16] MEDS: FAMOTIDINE 20 MG TAB PO SCH ×2 (08:26→21:00)
[2022-10-16] MEDS: DOXYCYCLINE HYCLATE 100 MG CAP PO SCH ×2 (08:26→20:59)
[2022-10-16] MEDS: PARoxetine HCL 20 MG TAB PO SCH (08:27)
[2022-10-16] MEDS: ACETAMINOPHEN 500 MG TAB PO SCH ×3 (08:27→21:00)
[2022-10-16] MEDS: CeleBREX 200 MG CAP PO SCH ×2 (08:27→21:02)
[2022-10-16] MEDS: METOPROLOL SUCC 25MG EXT REL TAB PO SCH (08:27)
[2022-10-16] MEDS: LOSARTAN POTASSIUM 50 MG TAB PO SCH (08:27)
[2022-10-16 08:46] LABS: Basophils # (auto) 0.05 K/uL (0-0.2); Basophils % (auto) 0.8 %; Eosinophils # (auto) 0.31 K/uL (0-0.50); Eosinophils % (auto) 4.9 %; Hematocrit (blood only) 33.4 % (42.0-52.0); Hemoglobin 11.3 g/dl (14.0-18.0); Immature Granulocytes # (auto) 0.04 K/uL (0.01-0.20); Immature Granulocytes % (auto) 0.6 %; Lymphocytes # (auto) 1.46 K/uL (1.2-3.4); Lymphocytes % (auto) 23.1 %; Mean Corpuscular Hemoglobin 30.1 pg (25.0-34.0); Mean Corpuscular Hgb Conc 33.8 g/dL (32.0-36.0); Mean Corpuscular Volume 88.8 fL (80.0-100.0); Mean Platelet Volume 10.1 fL (9.4-12.4); Monocytes % (auto) 9.5 %; Neutrophils # (auto) 3.86 K/uL (1.40-6.50); Neutrophils % (auto) 61.1 %; Platelet Count 148 K/uL (130-400); RDW Coefficient of Variation 13.5 % (11.5-14.5); RDW Standard Deviation 43.8 fL (36.4-46.3); Red Blood Count 3.76 M/uL (4.70-6.10); White Blood Count 6.32 K/ul (4.8-10.8)
[2022-10-16 09:06] LABS: BUN Creatinine Ratio 15.3 (10-20); Calcium 8.9 mg/dl (8.6-10.3); Creatinine Clr Calc Pharmacy 104.7 ml/min; Est GFR (African American) 98.8 ml/min; Est GFR (Non-African American) 85.2 ml/min; Potassium 4.3 mmol/L (3.5-5.1)
--- NOTE | 2022-10-16 09:32 | Hospitalist Progress Note ---
Date of Service October 16, 2022 Assessment & Plan (1) Back pain: (2) Arthralgia: (3) Abscess in epidural space of lumbar spine: (4) Prosthetic joint infection: (5) Shoulder pain: (6) Postoperative back pain: Plan Neurogenic claudication due to lumbar spinal stenosis Repeated Thoracic, Lumbar MRI: "Severe canal stenosis at the L2 vertebral body this is similar when compared to prior exam" Dr. Purcell/ortho spine consulted -Planning for surgery early next week -Will await cardiac clearance as below, could likely be discharged while awaiting outpatient surgery for next week Cardiology consulted for pre-operative clearance given history of CAD Continue amitriptyline, gabapentin, Celebrex. -Tylenol, Dilaudid added for breakthrough pain Continue his regular antibiotics (doxycycline) for MSSA suppression B12 Level WNL Diabetes mellitus, type 2 Last HbA1C 6.5 in April, will repeat wiht AM labs Hold metformin Novolog: --Goal BSG Range: Low 110 mg/dL, High 140 mg/dL --Correction Factor: 45 mg/dL/unit No carb ratio --BSGs ACHS if eating, q6h if npo CAD (coronary artery disease) Unclear why he is not taking an aspirin. Continue metoprolol, losartan and atorvastatin Hypertension Continue his routine medications Plan VTE Prophyalxis - deferred pending any surgical decision Diet - T2DM Disposition - observation to med/surg Admission and Anticipated Discharge Date Admission Date: October 15, 2022 Supervising Physician Co-Signing Physician Notes Attending attestation Pt seen and examined in concert with Dr. Santacruz. In agreement with the documented findings as noted in the resident documentation with any exceptions or additions as noted here. Sitting up in bed. Pain adequately controlled on present medication regimen. No acute complaints otherwise nor red flags. On examination, S1/S2 nl RRR no MCG. CTAB. Abd NT/ND BS+ve Neurogenic claudication due to lumbar stenosis - ortho spine consult - cardiology consulted for clearance by ortho Else see resident documentation as noted. Subjective Patient seen and examined at bedside. He notes that pain is currently manageable- had just received IV pain medication prior to encounter. Notes that his pain has been constant since his prior surgery in May but has been getting progressively worse. He recently saw Dr. Purcell in clinic but there was no immediate plan for surgery due to his recently history of infection at his spine and shoulder (currently on daily doxycycline for undetermined period of time per infectious disease). He uses a wheelchair at home and has worsening pain that radiates from lumbar spine down both legs with numbness and tingling. Denies loss of bowel or bladder control. Review of Systems Review of Systems: As per above Physical Exam Constitutional: WD/WN, vitals as above Eyes: + anicteric sclerae ENMT: Ears: no external ear abnormality Nose: no external nose abnormality Moist mucous membranes Respiratory: normal respiratory effort, lungs clear to auscultation Cardiovascular: Rate/Rhythm: regular rate and regular rhythm Gastrointestinal (Abdomen): Abdomen soft, nontender and nondistended Musculoskeletal: Spine: + lumbar spinal tenderness and + straight leg raise positive Extremities: extremities normal to inspection and + abnormal strength (right LE decreased strength) Neurologic: deep tendon reflexes 2+ bilaterally Decreased sensation of right lower extremity Psychiatric: A+Ox3, euthymic affect Results & Data Results & Data Vital Signs (Past 12 Hours) Vital Signs Temp Pulse Resp BP Pulse Ox O2 Del Method 10/16/22 08:23 92 Room Air 10/16/22 07:51 36.5 C 87 18 139/86 90 Room Air Diagnostic Findings Lumbar Spine MRI 10/15/22 20:09 Exam(s): MRI L SPINE W/WO Contrast IV Amt: 11cc gadavist EXAM: MR Lumbar Spine Without and With Intravenous Contrast CLINICAL HISTORY: Reason for exam: increasing bilateral leg weakness and pain. TECHNIQUE: Magnetic resonance images of the lumbar spine without and with intravenous contrast in multiple planes. CONTRAST: Patient received 11cc Gadavist of IV contrast COMPARISON: 09/27/2022 FINDINGS: Vertebrae: Unremarkable. No acute fracture. Interspaces: Postoperative changes L2 through S1 stable when compared to prior exam. There is severe stenosis at the level of the L2 interspace. Spinal cord: Unremarkable. Normal signal. No abnormal enhancement. Soft tissues: Unremarkable. DISCS/SPINAL CANAL/NEURAL FORAMINA: L1-L2: Unremarkable. No significant disc disease. No stenosis. L2-L3: See above L3-L4: Postoperative changes as described above. No significant disc disease. No stenosis. L4-L5: Postoperative changes as described above. No significant disc disease. No stenosis. L5-S1: Postoperative changes as described above. No significant disc disease. No stenosis. IMPRESSION: Severe canal stenosis at the L2 vertebral body this is similar when compared to prior exam Electronically signed by: Ash Castro MD 10/16/22 01:16 AM Thoracic Spine MRI 10/15/22 20:09 Exam(s): MRI T SPINE W/WO Contrast IV Amt: 11cc gadavist EXAM: MR Thoracic Spine Without and With Intravenous Contrast CLINICAL HISTORY: Reason for exam: increasing bilateral leg weakness and pain. TECHNIQUE: Magnetic resonance images of the thoracic spine without and with intravenous contrast in multiple planes. CONTRAST: Patient received 11cc gadavist of IV contrast COMPARISON: MRI of the lumbar spine performed earlier on the same date. FINDINGS: Limitations: Exam limited secondary to motion degradation. Vertebrae: Unremarkable. No acute fracture. Discs/spinal canal/neural foramina: No acute findings. No significant disc disease. No spinal canal stenosis. Spinal cord: Unremarkable. Normal signal. No abnormal enhancement. Soft tissues: Unremarkable. IMPRESSION: No acute findings thoracic spine. Electronically signed by: Ash Castro MD 10/16/22 01:56 AM Resident Activity Tracking Resident Involvement: Resident Care Provided Care Provided: Adult Hospital Medicine (1) Back pain Back pain laterality: unspecified Back pain location: back pain in unspecified location Chronicity: unspecified Qualified Code(s): M54.9 - Dorsalgia, unspecified
[2022-10-16 10:53] LABS: Estimated Average Glucose 123 mg/dl; Hemoglobin A1C 5.9 % (4.5-5.6)
--- NOTE | 2022-10-16 12:20 | Orthopedic Consultation ---
Date of Consultation October 16, 2022 Assessment & Plan (1) Neurogenic claudication due to lumbar spinal stenosis: Assessment severe lumbar spinal stenosis with neurogenic claudication. Plan at this time he is noting significant continued decline in status. I am going to recommend a more urgent approach to his problem. We are going to have him evaluated by cardiology and plan for decompression fusion L2-L3 early next week. We would have to revise his previous instrumentation. We will look towards inf ectious disease for guidance regarding pre and postoperative antibiotics. Patient understands agrees with this plan. History of Present Illness Reason for Consultation: Back and leg pain with weakness Attending Physician: Froylan Will MD History of Present Illness This is a 57-year-old male well-known to me the presents with steady decline in status. He has known spinal stenosis that has progressed in nature L2-L3. We are hoping to avoid any immediate surgical intervention but unfortunately continues to decline with marked weakness inability ambulate and pain. Allergies Allergy/AdvReac Type Severity Reaction Status Date / Time shellfish derived Allergy Severe Throat Verified 09/17/22 15:05 swelling tramadol Allergy Mild Hives, Verified 09/17/22 15:05 dizziness, nausea acetaminophen AdvReac Mild Upset Verified 09/17/22 15:05 stomach Home Medications Medication Instructions Recorded Confirmed Type amitriptyline 100 mg tablet 100 mg PO HS 02/16/19 10/15/22 History atorvastatin 80 mg tablet (Lipitor) 80 mg PO HS 02/16/19 10/15/22 History famotidine 20 mg tablet (Pepcid) 20 mg PO BID 02/16/19 10/15/22 History metoprolol succinate 25 mg 25 mg PO QAM 02/23/19 10/15/22 History tablet,extended release 24 hr (Toprol XL) metformin 1,000 mg tablet 1,000 mg PO BID 02/29/20 10/15/22 History melatonin 10 mg tablet 10 mg PO HS 09/07/21 10/15/22 History paroxetine HCl 30 mg tablet (Paxil) 30 mg PO QAM 04/05/22 10/15/22 History cyclobenzaprine 10 mg tablet 10 mg PO TID PRN muscle spasm #15 05/25/22 10/15/22 Rx tabs oxycodone 10 mg tablet 10 mg PO Q6H PRN pain #10 tabs 09/27/22 10/15/22 Rx celecoxib 200 mg capsule 200 mg PO BID 10/15/22 10/15/22 History doxycycline monohydrate 100 mg 100 mg PO BID 10/15/22 10/15/22 History capsule gabapentin 300 mg capsule 300 mg PO BID 10/15/22 10/15/22 History losartan 100 mg tablet 100 mg PO DAILY 10/15/22 10/15/22 History Patient History Medical History CAD (coronary artery disease) 2007 x 2 stents (LAD, Diagonal) 2012 (PADMINI D1) cardiac stents x3 total (most recent stent 2011) No recent issues Degenerative disc disease s/p cervical fusion Depression Diabetes mellitus, type 2 NIDDM GERD (gastroesophageal reflux disease) controlled, stable per pt Hyperlipidemia Hypertension Myocardial Infarction 2012 > stents SIDDHARTHA (obstructive sleep apnea) pt states the last sleep study was negative Surgical History Difficult intubation Right reverse total shoulder replacement (10/08/21): Glidescope#3, ETT 7.5 + PNB at [facility]. *Difficult airway* per anesthesia record comments. No issues noted per post-op anesthesia progress note. Fusion of spine ACDF C6-C7, C5 corpectomy: 08/08/10: MAC#4, ETT 7.5 at [facility] History of cardiac cath 2006 x 2 stents (LAD, Diagonal) 2011 (PADMINI D1) History of colonoscopy History of esophageal dilatation History of esophagogastroduodenoscopy (EGD) History of hip surgery right hip (as a child) History of lumbar fusion 10/04/2020: elective glidescope 3. ETT 8.0. History of repair of rotator cuff right History of reverse total replacement of right shoulder joint Right reverse total shoulder replacement (10/08/21): Glidescope#3, ETT 7.5 + PNB at [facility]. *Difficult airway* per anesthesia record comments. No issues noted per post-op anesthesia progress note. History of tooth extraction History of total knee replacement right knee S/P arthroscopy of right shoulder 03/18/19. 02/29/20. LMA#5. Family History Father Family history of diabetes mellitus Other No family history of adverse response to anesthesia Social History Smoking Status: Former smoker Tobacco Type: Cigarettes Age Started Using Tobacco: 19; Age Quit Using Tobacco: 56; Second Hand Exposure: No; Do You Dip or Chew Tobacco: No; Hx Alcohol Use: Yes Alcohol type: beer Hx Substance Use: Yes Last Used Substance Other:: 8 years Preferred Language: Faroese Communication Ability: Effective Hearing Ability: Normal Gear Inspector Required: No Beliefs That Will Affect Care: None marital status: Current Living Situation: Spouse Feels Safe at Home: Yes Diet: ideal protein caffeine: Yes during the past year weight has: decreased > 10 lbs Assistive Devices: Walker and Wheelchair Physical Exam Physical Exam: On exam he is currently in bed. Does have renal strength testing on bench exam plantarflexion dorsiflexion. There are some sensory deficits to light touch. Deep transfer reflexes are diminished. Results & Data Vital Signs (Past 12 Hours) Vital Signs Temp Pulse Resp BP Pulse Ox O2 Del Method 10/16/22 08:23 92 Room Air 10/16/22 07:51 36.5 C 87 18 139/86 90 Room Air
--- NOTE | 2022-10-16 13:49 | Cardiology Consultation ---
Date of Consultation October 16, 2022 Assessment & Plan (1) Encounter for pre-operative examination: (2) Neurogenic claudication due to lumbar spinal stenosis: (3) CAD (coronary artery disease): (4) Hypertension: Plan Please see physician addendum for further information as well as full plan of care. Supervising Physician Co-Signing Physician Notes Attending Staff: Pt seen and evaluated with [facility] staff. Concur with observations and plans. 57 yo man known CAD s/p PCI Presenting for lumbar spine surgery Consultation: Preoperative evaluation Progressive back pain Has undergone several spine surgeries over the last several months Pt is primarily relegated to a wheelchair Physical activity - limited. 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 Pt reports that he has been undergone subsequent surgeries without major cardiovascular challenges No angina reported, stable or unstable No major dyspnea reported Patient is most limited by back/orthopedic challenges No signs or sx of decompensated CHF No signs or sx of unstable arrhythmias Spinal stenosis No hx of carpal tunnel No know amyloid Given hx of multiple PCI/Stenting - continue ASA 81 mg po per day Continue Lipitor 80 mg po per day Check LDL as an outpt Given premature CAD - Check LP(a) and Apolipoprotein B as an outpt Continue Beta blockers - Toprol Xl 25 mg po per day Please secure results of most recent pharmacologic stress test Ozzy Santos History of Present Illness Reason for Consultation: Cardiovascular preoperative risk stratification Requesting Physician: Hospitalist service Attending Physician: Froylan Will MD History of Present Illness 57-year-old male with severe lumbar spinal stenosis with neurogenic claudication who follows with [facility] presented to the [facility] emergency department due to progressive back pain. Due to significant decline in overall status orthopedics is recommending a more urgent approach to management with decompression fusion of the L2-L3 early next week. Cardiology consulted for preoperative risk stratification regarding coronary artery disease. Past medical history: Hypertension Coronary artery disease status post PCI with unknown specifics 2006 x 2 stents to LAD and diagonal 2011 x 1 PADMINI to D1 Severe lumbar spinal stenosis with neurogenic claudication. Diabetes Dyslipidemia History of PE in 1989 Allergies Allergy/AdvReac Type Severity Reaction Status Date / Time shellfish derived Allergy Severe Throat Verified 09/17/22 15:05 swelling tramadol Allergy Mild Hives, Verified 09/17/22 15:05 dizziness, nausea acetaminophen AdvReac Mild Upset Verified 09/17/22 15:05 stomach Home Medications Medication Instructions Recorded Confirmed Type amitriptyline 100 mg tablet 100 mg PO HS 02/16/19 10/15/22 History atorvastatin 80 mg tablet (Lipitor) 80 mg PO HS 02/16/19 10/15/22 History famotidine 20 mg tablet (Pepcid) 20 mg PO BID 02/16/19 10/15/22 History metoprolol succinate 25 mg 25 mg PO QAM 02/23/19 10/15/22 History tablet,extended release 24 hr (Toprol XL) metformin 1,000 mg tablet 1,000 mg PO BID 02/29/20 10/15/22 History melatonin 10 mg tablet 10 mg PO HS 09/07/21 10/15/22 History paroxetine HCl 30 mg tablet (Paxil) 30 mg PO QAM 04/05/22 10/15/22 History cyclobenzaprine 10 mg tablet 10 mg PO TID PRN muscle spasm #15 05/25/22 10/15/22 Rx tabs oxycodone 10 mg tablet 10 mg PO Q6H PRN pain #10 tabs 09/27/22 10/15/22 Rx celecoxib 200 mg capsule 200 mg PO BID 10/15/22 10/15/22 History doxycycline monohydrate 100 mg 100 mg PO BID 10/15/22 10/15/22 History capsule gabapentin 300 mg capsule 300 mg PO BID 10/15/22 10/15/22 History losartan 100 mg tablet 100 mg PO DAILY 10/15/22 10/15/22 History Patient History Medical History CAD (coronary artery disease) 2006 x 2 stents (LAD, Diagonal) 2011 (PADMINI D1) cardiac stents x3 total (most recent stent 2011) No recent issues Degenerative disc disease s/p cervical fusion Depression Diabetes mellitus, type 2 NIDDM GERD (gastroesophageal reflux disease) controlled, stable per pt Hyperlipidemia Hypertension Myocardial Infarction 2012 > stents SIDDHARTHA (obstructive sleep apnea) pt states the last sleep study was negative Surgical History Difficult intubation Right reverse total shoulder replacement (10/08/21): Glidescope#3, ETT 7.5 + PNB at [facility]. *Difficult airway* per anesthesia record comments. No issues noted per post-op anesthesia progress note. Fusion of spine ACDF C6-C7, C5 corpectomy: 08/08/10: MAC#4, ETT 7.5 at [facility] History of cardiac cath 2006 x 2 stents (LAD, Diagonal) 2011 (PADMINI D1) History of colonoscopy History of esophageal dilatation History of esophagogastroduodenoscopy (EGD) History of hip surgery right hip (as a child) History of lumbar fusion 10/04/2020: elective glidescope 3. ETT 8.0. History of repair of rotator cuff right History of reverse total replacement of right shoulder joint Right reverse total shoulder replacement (10/08/21): Glidescope#3, ETT 7.5 + PNB at [facility]. *Difficult airway* per anesthesia record comments. No issues noted per post-op anesthesia progress note. History of tooth extraction History of total knee replacement right knee S/P arthroscopy of right shoulder 03/18/19. 02/29/20. LMA#5. Family History Father Family history of diabetes mellitus Other No family history of adverse response to anesthesia Social History Smoking Status: Former smoker Tobacco Type: Cigarettes Age Started Using Tobacco: 19; Age Quit Using Tobacco: 56; Second Hand Exposure: No; Do You Dip or Chew Tobacco: No; Hx Alcohol Use: Yes Alcohol type: beer Hx Substance Use: Yes Last Used Substance Other:: 8 years Preferred Language: Libyan Communication Ability: Effective Hearing Ability: Normal Supervisor Gluing Required: No Beliefs That Will Affect Care: None marital status: Current Living Situation: Spouse Feels Safe at Home: Yes Diet: ideal protein caffeine: Yes during the past year weight has: decreased > 10 lbs Assistive Devices: Walker and Wheelchair Review of Systems Review of Systems: All systems reviewed & are unremarkable except as noted in HPI & below Physical Exam Physical Exam: Obse man in NAD In Bed JVP 12 cmH20 S1S2 Soft 2/6 Systolic Murmur CTA B on anterior exam No C/C/E Multiple Tattoos Results & Data Vital Signs (Past 12 Hours) Vital Signs Temp Pulse Resp BP Pulse Ox O2 Del Method 10/16/22 08:23 92 Room Air 10/16/22 07:51 36.5 C 87 18 139/86 90 Room Air Laboratory Results Coagulation 10/15/22 Range/Units 18:04 PT 11.2 (9.0-12.0) Seconds APTT 25.8 (21.0-31.0) Seconds CBC 10/15/22 10/16/22 Range/Units 18:04 08:23 WBC 8.83 6.32 (4.8-10.8) K/ul RBC 3.62 L 3.76 L (4.70-6.10) M/uL Hgb 11.0 L 11.3 L (14.0-18.0) g/dl Hct 32.3 L 33.4 L (42.0-52.0) % Plt Count 170 148 (130-400) K/uL Neut # (Auto) 5.40 3.86 (1.40-6.50) K/uL Lymph # (Auto) 1.97 1.46 (1.2-3.4) K/uL [place] # (Auto) 0.91 H 0.60 H (0.11-0.59) K/uL Eos # (Auto) 0.42 0.31 (0-0.50) K/uL Baso # (Auto) 0.07 0.05 (0-0.2) K/uL Comprehensive Metabolic Panel 10/15/22 10/16/22 Range/Units 18:04 08: Sodium 136 139 (136-145) mmol/L Potassium 4.9 4.3 (3.5-5.1) mmol/L Chloride 103 105 (98-107) mmol/L Carbon Dioxide 29 29 (21-32) mmol/L BUN 16 15 (6-23) mg/dl Creatinine 0.91 0.98 (0.6-1.4) mg/dl Glucose 86 103 H (70-99(Fasting)) mg/dl Calcium 9.1 8.9 (8.6-10.3) mg/dl Intake and Output 10/15/22 10/16/22 10/16/22 22:59 06:59 14:59 Intake Total 150 / 150 560 / 560 Output Total 550 / 1200 650 / 1200 425 / 425 Balance -400 / -1050 -650 / -1050 135 / 135 Intake: Oral 150 / 150 560 / 560 Output: Urine 550 / 1200 650 / 1200 425 / 425 Other: Weight 113.086 kg 113.086 kg Weight Measurement [facility] Medications Administered Current Inpatient Medications Acetaminophen (Acetaminophen 500 Mg Tab) 1,000 mg PO TID [facility] Stop: 11/14/22 21:54 Last Admin: 10/16/22 13:23 Dose: 1,000 mg Amitriptyline HCl (Amitriptyline Hcl 100 Mg Tab) 100 mg PO HS [facility] Stop: 11/14/22 21:49 Last Admin: 10/15/22 23:20 Dose: 100 mg Atorvastatin Calcium (Atorvastatin 40 Mg Tab) 80 mg PO HS [facility] Stop: 11/14/22 21:49 Last Admin: 10/15/22 23:23 Dose: 80 mg Celecoxib (Celebrex 200 Mg Cap) 200 mg PO BID [facility] Stop: 11/14/22 21:59 Last Admin: 10/16/22 08:27 Dose: 200 mg Dextrose (Dextrose 50% 50 Ml Syringe) 25 - 50 ml IV UD PRN; Protocol PRN Reason: Hypoglycemia Protocol Stop: 11/14/22 20:51 Doxycycline Hyclate (Doxycycline Hyclate 100 Mg Cap) 100 mg PO BID [facility] Stop: 11/14/22 21:59 Last Admin: 10/16/22 08:26 Dose: 100 mg Famotidine (Famotidine 20 Mg Tab) 20 mg PO BID [facility] Stop: 11/14/22 21:59 Last Admin: 10/16/22 08:26 Dose: 20 mg Gabapentin (Gabapentin 300 Mg Cap) 300 mg PO BID [facility] Stop: 11/14/22 21:59 Last Admin: 10/16/22 08:26 Dose: 300 mg Glucagon (Glucagon For Inj 1 Mg Vial) 1 mg SQ UD PRN; Protocol PRN Reason: Hypoglycemia Protocol Stop: 11/14/22 20:51 Glucose (Glucose 10 Tab/Tube) 4 - 8 tab PO UD PRN; Protocol PRN Reason: Hypoglycemia Treatment Stop: 11/14/22 20:51 Glucose (Glucose 40% Gel 15 Gm Tube) 15 - 30 gm PO UD PRN; Protocol PRN Reason: Hypoglycemia Protocol Stop: 11/14/22 20:51 Hydromorphone HCl (Hydromorphone Inj 0.5 Mg/0.5 Ml Syr) 0.5 mg IV Q3H PRN PRN Reason: Pain (6,7,8,9,10) Stop: 10/29/22 21:49 Last Admin: 10/16/22 12:33 Dose: 0.5 mg Hydromorphone HCl (Hydromorphone Inj 0.5 Mg/0.5 Ml Syr) 0.25 mg IV Q3H PRN PRN Reason: Pain (1,2,3,4,5) & Pre PT Stop: 10/29/22 21:49 Insulin Aspart (Insulin Aspart Per Unit Charge) 0 units SC ACHS [facility] Stop: 11/14/22 20:59 Last Admin: 10/16/22 11:32 Dose: Not Given Losartan Potassium (Losartan Potassium 50 Mg Tab) 100 mg PO DAILY [facility] Stop: 11/15/22 08:59 Last Admin: 10/16/22 08:27 Dose: 100 mg Melatonin (Melatonin 3 Mg Tab) 9 mg PO HS [facility] Stop: 11/14/22 21:49 Last Admin: 10/15/22 23:22 Dose: 9 mg Metoprolol Succinate (Metoprolol Succ 25mg Ext Rel Tab) [facility] Stop: 11/15/22 08:59 Last Admin: 10/16/22 08:27 Dose: 25 mg Miscellaneous (Carbohydrates For Hypoglycemia ) 15 - 30 gm PO UD PRN PRN Reason: Hypoglycemia Protocol Stop: 11/14/22 20:51 Paroxetine HCl (Paroxetine Hcl 20 Mg Tab) [facility] Stop: 11/15/22 08:59 Last Admin: 10/16/22 08:27 Dose: 30 mg
[2022-10-16] MEDS: AMITRIPTYLINE HCL 100 MG TAB PO SCH (21:00)
[2022-10-16] MEDS: MELATONIN 3 MG TAB PO SCH (21:01)
[2022-10-16] MEDS: ATORVASTATIN 40 MG TAB PO SCH (21:01)
[2022-10-17] MEDS: HYDROmorphone INJ 0.5 MG/0.5 ML SYR IV PRN ×5 (04:30→20:37)
[2022-10-17] MEDS: INSULIN ASPART PER UNIT CHARGE SC SCH ×4 (08:08→20:48)
--- NOTE | 2022-10-17 08:39 | Orthopedic Progress Note ---
Date of Service October 17, 2022 Assessment & Plan (1) Lumbar spinal stenosis: Plan: At this time we are awaiting final recommendations from cardiology. Would like to perform surgery soon as possible. This could occur as soon as next week. I encouraged him to mobilize get out of bed as tolerated at least get to the restroom and ambulate about the room. He understands agrees. Admission and Anticipated Discharge Date Admission Date: October 15, 2022 Subjective Patient's pain is well-controlled. He has been able to stand to urinate. Physical Exam Physical Exam: On exam appears comfortable this morning. Has good strength testing. Results & Data Vital Signs (Past 12 Hours) Vital Signs Temp Pulse Resp BP Pulse Ox O2 Del Method 10/17/22 07:40 36.5 C 79 17 122/89 95 Room Air 10/16/22 21:04 36.7 C 86 18 157/94 H 95 Room Air
[2022-10-17] MEDS: GABAPENTIN 300 MG CAP PO SCH ×2 (08:53→20:38)
[2022-10-17] MEDS: CeleBREX 200 MG CAP PO SCH ×2 (08:53→20:38)
[2022-10-17] MEDS: ACETAMINOPHEN 500 MG TAB PO SCH ×3 (08:54→20:37)
[2022-10-17] MEDS: DOXYCYCLINE HYCLATE 100 MG CAP PO SCH ×2 (08:54→20:38)
[2022-10-17] MEDS: FAMOTIDINE 20 MG TAB PO SCH ×2 (08:54→20:38)
[2022-10-17] MEDS: METOPROLOL SUCC 25MG EXT REL TAB PO SCH (08:55)
[2022-10-17] MEDS: PARoxetine HCL 20 MG TAB PO SCH (08:55)
[2022-10-17] MEDS: LOSARTAN POTASSIUM 50 MG TAB PO SCH (08:55)
--- NOTE | 2022-10-17 09:58 | Hospitalist Progress Note ---
Date of Service October 17, 2022 Assessment & Plan (1) Back pain: (2) Arthralgia: (3) Abscess in epidural space of lumbar spine: (4) Prosthetic joint infection: (5) Shoulder pain: (6) Postoperative back pain: Plan Neurogenic claudication due to lumbar spinal stenosis Repeated Thoracic, Lumbar MRI: "Severe canal stenosis at the L2 vertebral body this is similar when compared to prior exam" Dr. Purcell/ortho spine consulted -Planning for surgery early next week Cardiology consulted for pre-operative clearance given history of CAD -Patient sees Dr. Mir however he is unable to see patient in hospital/complete outpatient stress echo in time -Contacted [facility]/Dr. Varghese regarding stress echo and cardiac clearance Continue amitriptyline, gabapentin, Celebrex. -Tylenol, Dilaudid for breakthrough pain Continue his regular antibiotics (doxycycline) for MSSA suppression B12 Level WNL Diabetes mellitus, type 2 Last HbA1C 6.5 in April metformin Novolog: --Goal BSG Range: Low 110 mg/dL, High 140 mg/dL --Correction Factor: 45 mg/dL/unit No carb ratio --BSGs ACHS if eating, q6h if npo CAD (coronary artery disease) Unclear why he is not taking an aspirin. Continue metoprolol, losartan and atorvastatin Hypertension Continue his routine medications Plan VTE Prophyalxis - deferred pending any surgical decision Diet - T2DM Disposition - observation to med/surg Admission and Anticipated Discharge Date Admission Date: October 15, 2022 Supervising Physician Co-Signing Physician Notes Attending attestation Pt seen and examined in concert with Dr. Santacruz. In agreement with the documented findings as noted in the resident documentation with any exceptions or additions as noted here. Sitting up in bed. Pain remains adequately controlled on present medication regimen. No acute complaints otherwise nor red flags. Reports ?stress test, definitely echo, in Apr but per recent cards note requires repeat prior to procedures On examination, S1/S2 nl RRR no MCG. CTAB. Abd NT/ND BS+ve Neurogenic claudication due to lumbar stenosis - ortho spine consult - cardiology consulted for clearance by ortho with evaluation pending. Continue pain control and monitor for changes. Else see resident documentation as noted. Subjective Patient seen and examined at bedside. He denies any changes in the last day, has been eating and drinking without issue. Has not had a bowel movement since admission. Pain remains but under reasonable control. Review of Systems Review of Systems: As per above Physical Exam Constitutional: WD/WN, vitals as above Eyes: + anicteric sclerae ENMT: Ears: no external ear abnormality Nose: no external nose abnormality Respiratory: normal respiratory effort, lungs clear to auscultation Cardiovascular: Rate/Rhythm: regular rate and regular rhythm Musculoskeletal: Spine: + lumbar spinal tenderness Extremities: extremities normal to inspection and + abnormal strength (right LE decreased strength) Neurologic: deep tendon reflexes 2+ bilaterally Psychiatric: A+Ox3, euthymic affect Results & Data Results & Data Vital Signs (Past 12 Hours) Vital Signs Temp Pulse Resp BP Pulse Ox O2 Del Method 10/17/22 07:40 36.5 C 79 17 122/89 95 Room Air Resident Activity Tracking Resident Involvement: Resident Care Provided Care Provided: Adult Hospital Medicine (1) Back pain Back pain laterality: unspecified Back pain location: back pain in unspecified location Chronicity: unspecified Qualified Code(s): M54.9 - Dorsalgia, unspecified
[2022-10-17] MEDS: AMITRIPTYLINE HCL 100 MG TAB PO SCH (20:38)
[2022-10-17] MEDS: MELATONIN 3 MG TAB PO SCH (20:39)
[2022-10-17] MEDS: ATORVASTATIN 40 MG TAB PO SCH (20:39)
[2022-10-18] MEDS: HYDROmorphone INJ 0.5 MG/0.5 ML SYR IV PRN ×4 (00:03→11:52)
[2022-10-18] MEDS: DOXYCYCLINE HYCLATE 100 MG CAP PO SCH (08:36)
[2022-10-18] MEDS: CeleBREX 200 MG CAP PO SCH (08:36)
[2022-10-18] MEDS: FAMOTIDINE 20 MG TAB PO SCH (08:36)
[2022-10-18] MEDS: GABAPENTIN 300 MG CAP PO SCH (08:36)
[2022-10-18] MEDS: ACETAMINOPHEN 500 MG TAB PO SCH ×2 (08:38→13:21)
[2022-10-18] MEDS: LOSARTAN POTASSIUM 50 MG TAB PO SCH (08:39)
[2022-10-18] MEDS: PARoxetine HCL 20 MG TAB PO SCH (08:39)
[2022-10-18] MEDS: METOPROLOL SUCC 25MG EXT REL TAB PO SCH (08:39)
[2022-10-18] MEDS: INSULIN ASPART PER UNIT CHARGE SC SCH ×2 (09:42→12:23)
--- NOTE | 2022-10-18 12:25 | Orthopedic Progress Note ---
Date of Service October 18, 2022 Assessment & Plan (1) Neurogenic claudication due to lumbar spinal stenosis: Plan: At this time we are planning for surgery October 29. From orthopedic standpoint he is safe to return home. Admission and Anticipated Discharge Date Admission Date: October 15, 2022 Subjective Patient is able to tolerate short trips around the room. He is able to stand and ambulate to the restroom. Physical Exam Physical Exam: On exam he is able to stand and ambulate the room. Reasonable strength testing. Results & Data Vital Signs (Past 12 Hours) Vital Signs Temp Pulse Resp BP Pulse Ox O2 Del Method 10/18/22 08:30 84 18 152/81 H 96 Room Air 10/18/22 06:57 36.5 C 80 18 140/81 96 Room Air
[2022-10-18] MEDS ORDERED: oxyCODONE HCL IR 5 MG TAB (IMMEDIATE RELEASE) PO STA (14:31)
--- NOTE | 2022-10-18 16:32 | Discharge Summary ---
Date of Service October 18, 2022 Admission HPI Per Admitting Provider Kareem Guan is a 57 year old male with history of MSSA bacteremia who presents to the ER due to acute on chronic back pain with bilateral leg weakness and recurrent falls. He was recently admitted for the same back pain in September and was discharged after review by ortho spine as he was still on antibiotics for his prior MSSA in May with subsequent shoulder replacement. He is currently on oral doxycycline and follows with infectious disease Dr Rachel in [place] with no specific end to his antibiotic regimen. His pain and weakness have been steady up until the last 2 days with a sudden decline. He no longer has the strength to use a walker and has mainly been wheelchair bound. He fell twice today. Pain going down both legs but much worse on right side and most of this leg feels numb. Similar to symptoms he had in September but not worse. No urine or bowel incontinence. No fever or chills. He called Dr Purcell's office today due to worsening symptoms and was advised to come to the ER. He notes a history of PE in . Right leg always bigger since his knee replacement. Admission Exam Per Admitting Provider Constitutional: WD/WN, vitals as above Respiratory: normal respiratory effort, lungs clear to auscultation Cardiovascular: RRR, no murmur, no edema Gastrointestinal (Abdomen): normal bowel sounds, soft, nontender, no hepatosplenomegaly Skin: no rashes, warm and dry Neurologic: moves all extremities, + focal motor deficit (right ankle dorsiflexion 4/5, hip flex 3/5 (limited by pain)) and awake; not confused Speech / Cognition: normal speech Motor/Sensory: + sensory deficit (numbness b/l in peripheral distribution from knees down); no tremor Psychiatric: A+Ox3, euthymic affect Principal Diagnosis Neurogenic Claudication due to Lumbar Spinal Stenosis Discharge Exam Constitutional WD/WN, vitals as above Eyes + anicteric sclerae ENMT Ears: no external ear abnormality Nose: no external nose abnormality Moist mucous membranes Respiratory normal respiratory effort, lungs clear to auscultation Cardiovascular regular rate, rhythm. Limbs appear well perfused. Gastrointestinal (Abdomen) Abdomen soft, nontender, nondistended. Musculoskeletal Spine: + lumbar spinal tenderness Extremities: extremities normal to inspection and + abnormal strength (right LE decreased strength) Skin no rashes, warm and dry Psychiatric A+Ox3, euthymic affect Discharge Data Allergies Allergy/AdvReac Type Severity Reaction Status Date / Time shellfish derived Allergy Severe Throat Verified 09/17/22 15:05 swelling tramadol Allergy Mild Hives, Verified 09/17/22 15:05 dizziness, nausea acetaminophen AdvReac Mild Upset Verified 09/17/22 15:05 stomach Consultations 10/15/22 17:43 ED Decision to Admit Stat 10/15/22 21:53 Consult Orthopedic Surgery Routine 10/16/22 14:47 Consult Cardiology Routine Ordered Studies 10/15/22 20:09 MRI Lumbar Spine [MR lumbar spine wo/w con] Routine MRI Thoracic [MR thoracic spine wo/w con] Routine Lumbar Spine MRI 10/15/22 20:09 Exam(s): MRI L SPINE W/WO Contrast IV Amt: 11cc gadavist EXAM: MR Lumbar Spine Without and With Intravenous Contrast CLINICAL HISTORY: Reason for exam: increasing bilateral leg weakness and pain. TECHNIQUE: Magnetic resonance images of the lumbar spine without and with intravenous contrast in multiple planes. CONTRAST: Patient received 11cc Gadavist of IV contrast COMPARISON: 09/27/2022 FINDINGS: Vertebrae: Unremarkable. No acute fracture. Interspaces: Postoperative changes L2 through S1 stable when compared to prior exam. There is severe stenosis at the level of the L2 interspace. Spinal cord: Unremarkable. Normal signal. No abnormal enhancement. Soft tissues: Unremarkable. DISCS/SPINAL CANAL/NEURAL FORAMINA: L1-L2: Unremarkable. No significant disc disease. No stenosis. L2-L3: See above L3-L4: Postoperative changes as described above. No significant disc disease. No stenosis. L4-L5: Postoperative changes as described above. No significant disc disease. No stenosis. L5-S1: Postoperative changes as described above. No significant disc disease. No stenosis. IMPRESSION: Severe canal stenosis at the L2 vertebral body this is similar when compared to prior exam Electronically signed by: Ash Castro MD 10/16/22 01:16 AM Thoracic Spine MRI 10/15/22 20:09 Exam(s): MRI T SPINE W/WO Contrast IV Amt: 11cc gadavist EXAM: MR Thoracic Spine Without and With Intravenous Contrast CLINICAL HISTORY: Reason for exam: increasing bilateral leg weakness and pain. TECHNIQUE: Magnetic resonance images of the thoracic spine without and with intravenous contrast in multiple planes. CONTRAST: Patient received 11cc gadavist of IV contrast COMPARISON: MRI of the lumbar spine performed earlier on the same date. FINDINGS: Limitations: Exam limited secondary to motion degradation. Vertebrae: Unremarkable. No acute fracture. Discs/spinal canal/neural foramina: No acute findings. No significant disc disease. No spinal canal stenosis. Spinal cord: Unremarkable. Normal signal. No abnormal enhancement. Soft tissues: Unremarkable. IMPRESSION: No acute findings thoracic spine. Electronically signed by: Ash Castro MD 10/16/22 01:56 AM Hospital Course (1) Back pain: Neurogenic claudication due to lumbar spinal stenosis -Repeated Thoracic, Lumbar MRI: "Severe canal stenosis at the L2 vertebral body this is similar when compared to prior exam" -Dr. Purcell/ortho spine consulted -Surgery scheduled for 10/29/22 -Cardiology consulted for pre-operative clearance given history of CAD -Patient sees Dr. Mri/[facility], unable to see patient/complete clearance during this admission -I will send a message to Dr. Mir's office to help coordinate cardiac clearance -Continue amitriptyline, gabapentin, Celebrex. Received Dilaudid IV during admission for pain control. -Patient discharged with prescription of Oxycodone for home pain control -Advised patient to continue stool softeners History of Lumbar Abscess, Prosthetic Joint Infection -Patient had to have treatment for prosthetic joint infection in his right shoulder due to seeding from lumbar abscess earlier in 2022. -Follows with infectious disease doctor in [place] (Dr. Rachel) -Continue prescribed regimen of doxycycline 100mg BID per ID Diabetes mellitus, type 2 -Last HbA1C 6.5 in April -Held home metformin -Sliding scale insulin used during admission CAD (coronary artery disease) -Continued metoprolol, losartan and atorvastatin Hypertension -Continued Metoprolol, Losartan (2) Arthralgia: (3) Abscess in epidural space of lumbar spine: (4) Prosthetic joint infection: (5) Shoulder pain: (6) Postoperative back pain: Total Time Total Time Spent Total Time Spent (In Minutes): . Discharge Plan Discharge Items Patient Disposition: Home - Self-Care Reason For Visit: LUMBAR SPINAL STENOSIS Discharge Diagnosis: Lumbar spinal stenosis with neurogenic claudication Activity: As commented below Non-emergency contact: Primary Care Provider Call non-emergency contact if: you have any medication questions Follow-up/Referrals: Roberto Esposito [Primary Care Provider] - 10/28/22 2:05 pm (Appointment is with Dr. Rush instead) Diet: Regular Addtl Attending Provider Instructions: ACTIVITY RECOMMENDATIONS: SELF CARE INSTRUCTIONS AFTER THORACIC/LUMBAR FUSIONS 1. You may walk to your tolerance. It is good exercise for your legs and back. Expect some back and intermittent leg aches and pains. 2. You may perform "counter-top" level activities (make a sandwich, maricel with a project, etc.). 3. No bending or lifting of more than 10 pounds or back twisting of any nature (roll like a log when turning in bed). 4. You may ride in a car for 20-30 minutes at a time. No driving until after your first visit with your doctor. 5. Frequent changes of position and restricting sitting to 30 minutes at a time will help limit the amount of back spasms and stiffness you may experience. 6. You may discontinue the use of ambulatory aids (cane, crutches, etc.) once your strength and confidence allow. 7. You may metal buildings assembler the shower and let water strike your incision when you arrive home at least once daily. Do not take a tub bath, sit in a hot tub or go into a swimming pool until after your first recheck in the office. SPECIAL CARE INSTRUCTIONS: VERY IMPORTANT TO READ AND REVIEW A. Your surgical incision has been closed with a cosmetic suture under the skin that will dissolve in about 6 weeks. In 14 days, you can use a pair of clean scissors and cut the suture that is left outside of the skin at the ends of your incision. 1. The small skin tapes can be removed 7 days after surgery if they have not fallen off by that point. 2. You may keep the wound open to air as much as possible to promote healing after post-op day number 5 unless told otherwise by your doctor. 3. If you think the wound looks like it is becoming infected (redness or worsening drainage) and/or you are experiencing fever, chill or worsening back pain and muscle spasms, contact the office so that we may evaluate you as soon as possible. B. Complications are uncommon, but please contact us if you have any signs or symptoms of: 1. wound infection (fever higher than 102.5 degrees F, redness, separation of wound, drainage, or increasing pain from the incision) 2. blood clots in legs (pain, swelling, redness and warmth in legs) 3. urinary tract infection (fever higher than 102.5 degrees F, burning upon urination or increased frequency of urination) 4. nerve problems (inability to walk on your toes or heels, numbness, loss of bowel or bladder control) 5. any other symptoms that concern you C. Please call the office at if you have any concerns or questions about your operation or recovery. D. No smoking! Smoking drastically decreases the chance of a solid fusion. E. Do not take any anti-inflammatory medications (Indocin, Advil, Motrin, Aspirin, Naprosyn, etc.) as these may inhibit the chance of a solid fusion. Tylenol is okay to take for pain. MANAGING PAIN AFTER SPINAL SURGERY 1. Narcotic medication is intended for short-term use and will be provided for surgical pain. Surgical pain usually lasts for a period of 4-6 weeks. Narcotic medication includes Percocet, Vicodin, Darvocet, Tylenol #3 or Lortab. 2. Longer-term pain is more appropriately treated with non-narcotic medication such as Tylenol ES. 3. Muscle spasm is not appropriately treated with narcotics. Muscle relaxers such as Soma, Flexeril or Skelaxin can be used along with Tylenol ES. 4. Remember that we all live with some "aches and pains". This is not unusual or uncommon after an injury or as we get older. a. Back pain is expected and may include muscle spasms for 4 to 6 weeks after surgery. The pain should gradually improve. If the pain worsens for no apparent reason, please contact the office. b. Intermittent leg pain may also be experienced and should not be concerned about unless it worsens for no apparent reason. If so, please contact the office. 5. We will provide appropriate medication within the normal guidelines of their prescribed use. We will also be very cautious and aware of potential abuse and extended duration of patients' medication needs. a. Pain medications are for your comfort and to assist with sleep and rest so that the tissue can heal. They are not provided in order to return to normal activity and should not be used through the day. To do so or worsening pain at night can result from ongoing tissue damage and development of tolerance to the prescribed medicine. 6. Please allow 2-3 days to process refills. Prescriptions will not be mailed but must be picked up at the office. FOLLOW UP VISIT: Keep your scheduled follow-up appointment. Any questions, please call the office at . Pending Studies at Discharge: No Stand-Alone Forms: My [facility], Pain - Opioid Pain Management, Smoking Cessation Medications and DC Order Prescriptions: New oxycodone 5 mg tablet 10 mg PO Q6H PRN (Reason: pain) Qty: 30 0RF Continued atorvastatin [Lipitor] 80 mg Tablet 80 mg PO HS famotidine [Pepcid] 20 mg Tablet 20 mg PO BID amitriptyline 100 mg Tablet 100 mg PO HS metoprolol succinate [Toprol XL] 25 mg Tablet Extended Release 24 Hr 25 mg PO QAM metformin 1,000 mg Tablet 1,000 mg PO BID cyclobenzaprine 10 mg Tablet 10 mg PO TID PRN (Reason: muscle spasm) Qty: 15 0RF oxycodone 10 mg tablet 10 mg PO Q6H PRN (Reason: pain) Qty: 10 0RF celecoxib 200 mg capsule 200 mg PO BID doxycycline monohydrate 100 mg capsule 100 mg PO BID gabapentin 300 mg capsule 300 mg PO BID Rx Instructions: per pt he takes 3 times daily losartan 100 mg tablet 100 mg PO DAILY melatonin 10 mg Tablet 10 mg PO HS paroxetine HCl [Paxil] 30 mg Tablet 30 mg PO QAM Discharge Orders: Discharge Order (Routine); Ordered 10/18/22 Ordered By: Mynor Guevara/Other Patient Handouts: Healthy Meals for Diabetes Admission Data Admit Date/Time: 10/15/22 18:53 Attending Provider: Concepcion Mckeon Admit Provider: Enrrique Laureano Primary Care Provider: Roberto Esposito Other Providers: Enrrique Laureano ; Mynor Purcell ; Sawyer Holt ; Sravan Ryder ; Kole Ragsdale ; Brenton Sorensen ; Galindo Wolf ; Carlos Leos Jr ; Manuel Shields ; Vee Carrington ; Sandy Traylor ; Froylan Manley ; Bandar Varghese ; Bulmaro Dela Cruz ; Tracy Langston ; Mala Alarcon ; Cristo Ratliff ; Ant Spears ; Brenton Zamora V. Other Interventions: Discharge Summary Assessment (RN) Last Done: 10/18/22 16:00 Supervising Physician Co-Signing Physician Notes I personally examined the patient and verified melgar points of history and exam, discussed case, and agree with decision making and plan documented by Dr. Santacruz. On exam patient lungs clear to auscultation bilaterally, no rales/rhonchi/wheezing, heart with regular rate and rhythm, no murmur appreciated, bowel sounds present and no tenderness in the abdomen. Pain stable and surgery scheduled 10/29/22, patient will obtain outpatient stress echocardiogram prior for cardiac evaluation prior to surgery. Resident Activity Tracking Resident Involvement: Resident Care Provided Care Provided: Adult Hospital Medicine
== END 2022-10-18 17:26 | disposition home or self-care (01) ==
LOC: 3W 16:13 → ED 16:13 → SUATTDRO 18:53 → 3W 20:31

== ENCOUNTER 2022-10-29 08:54 | Inpatient (IN) ==
--- NOTE | 2022-10-25 08:30 | Anesthesiology Consultation ---
Date of Service October 25, 2022 Assessment & Plan (1) Encounter for pre-operative examination: Chart Review Chart Review: Acceptable Risk for Surgery (pending cardio clearance ) and Patient NOT seen in Pre Admission Testing - Awaiting surgeon ordered cardiac clearance (Dr. Mir) (patient is scheduled for cardiac clearance appt 10/28/22 at 1440 (cardio office aware that surgery is next day; surgeon's office also informed) - Check BSG AM DOS -*Difficult airway*per anesthesia record comments.Glidescopeintubation for Right reverse total shoulder replacement (10/08/21) and lumbar spine I&D (05/08/22) at [facility]. (No issues noted with I&D on 05/31/22) -COVID screening: Per PAT nursing assessment on 10/23/22. No known COVID-19 positive contacts or current COVID-19 related symptoms. Travel screen negative. At surgeon discretion if preop Covid testing being done. Pt admitted to [facility] -10/18/22= Patient presented with acute on chronic back pain with bilateral leg weakness and recurrent falls. History of MSSA bacteremiafrom infection in May with subsequent shoulder replacement. Currently on oral doxycycline and follows with infectious disease. Neurogenic claudication due to lumbar spinal stenosisorthospine consultedsurgery scheduled for 10/29/2022. Cardio consulted for preoperative clearance given history of CADunable to see patient during admission. Will coordinate cardiac clearance as outpatient. Continue current medications. 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 Follows with infectious diseasecontinue Doxy. RobkczeeM4g 6.5 in April. CADcontinue current meds. Hypertensioncontinue current meds. Incision and drainage lumbar region 05/31/22= Done under [facility] with Grade 1 view with Glidescope #4. Cords clear. ETT #7.5. Atraumatic glidescope intubation x 1 History Surgery Operation Date: 10/29/22 10:35 Proposed Procedures p L2-L3 Decompression and Fusion, Spinal Cord Monitoring - Mynor Purcell, Height/Weight Height: 5 ft 10 in Weight: 102.965 kg Allergies Allergy/AdvReac Type Severity Reaction Status Date / Time shellfish derived Allergy Severe Throat Verified 10/23/22 10:37 swelling tramadol Allergy Mild Hives, Verified 10/23/22 10:37 dizziness, nausea acetaminophen AdvReac Mild Nausea Verified 10/23/22 10:37 Medications Home Medications Medication Instructions Recorded Confirmed Last Taken amitriptyline 100 mg tablet 100 mg PO HS 02/16/19 10/23/22 05/28/22 atorvastatin 80 mg tablet (Lipitor) 80 mg PO HS 02/16/19 10/23/22 05/28/22 famotidine 20 mg tablet (Pepcid) 20 mg PO BID 02/16/19 10/23/22 05/29/22 metoprolol succinate 25 mg 25 mg PO QAM 02/23/19 10/23/22 05/29/22 tablet,extended release 24 hr (Toprol XL) metformin 1,000 mg tablet 1,000 mg PO BID 02/29/20 10/23/22 05/29/22 melatonin 10 mg tablet 10 mg PO HS 09/07/21 10/23/22 05/04/22 paroxetine HCl 30 mg tablet (Paxil) 30 mg PO QAM 04/05/22 10/23/22 05/29/22 cyclobenzaprine 10 mg tablet 10 mg PO TID PRN muscle spasm #15 05/25/22 10/23/22 05/29/22 tabs oxycodone 10 mg tablet 10 mg PO Q6H PRN pain #10 tabs 09/27/22 10/23/22 Unknown doxycycline monohydrate 100 mg 100 mg PO BID 10/15/22 10/23/22 Unknown capsule gabapentin 300 mg capsule 300 mg PO BID 10/15/22 10/23/22 Unknown losartan 100 mg tablet 100 mg PO QAM 10/15/22 10/23/22 Unknown Past Medical History Medical History (Updated 10/25/22 @ 08:41 by Patti Adan, PA-C) CAD (coronary artery disease) 2007 x 2 stents (LAD, Diagonal) 2011 (PADMINI D1) cardiac stents x3 total (most recent stent 2011) No recent issues Degenerative disc disease s/p cervical fusion Depression Diabetes mellitus, type 2 NIDDM GERD (gastroesophageal reflux disease) controlled, stable per pt History of pulmonary embolism 1990s Hyperlipidemia Hypertension Myocardial Infarction 2012 > stents SIDDHARTHA (obstructive sleep apnea) resolved per pt Past Family History Family History Father Family history of diabetes mellitus Other No family history of adverse response to anesthesia Past Surgical History Surgical History Difficult intubation Right reverse total shoulder replacement (10/08/21): Glidescope#3, ETT 7.5 + PNB at [facility]. *Difficult airway* per anesthesia record comments. No issues noted per post-op anesthesia progress note. Fusion of spine ACDF C6-C7, C5 corpectomy: 08/08/10: MAC#4, ETT 7.5 at [facility] History of cardiac cath 2006 x 2 stents (LAD, Diagonal) 2011 (PADMINI D1) History of colonoscopy History of esophageal dilatation History of esophagogastroduodenoscopy (EGD) History of hip surgery right hip (as a child) History of lumbar fusion 10/04/2020: elective glidescope 3. ETT 8.0. 04/2022 L2-L4 DF with complications d/t infection History of repair of rotator cuff right History of reverse total replacement of right shoulder joint Right reverse total shoulder replacement (10/08/21): Glidescope#3, ETT 7.5 + PNB at [facility]. *Difficult airway* per anesthesia record comments. No issues noted per post-op anesthesia progress note. History of tooth extraction History of total knee replacement right knee S/P arthroscopy of right shoulder 03/18/19. 02/29/20. LMA#5. Social History Smoking Status: Former smoker tobacco type: cigarettes Do You Dip or Chew Tobacco: No Smoking End Date: 12 yr ago Hx Alcohol Use: Yes Alcohol type: beer alcohol intake frequency: a few times a month Hx Substance Use: No substance use type: does not use Last Used Substance Other:: 8 years Lab Results Anesthesia Preop Results Results Anesthesia Widget: WBC 6.32 K/ul (4.8-10.8) 10/16/22 Hgb 11.3 g/dl (14.0-18.0) L 10/16/22 Hct 33.4 % (42.0-52.0) L 10/16/22 Plt 148 K/uL (130-400) 10/16/22 Na 139 mmol/L (136-145) 08/09/23 K 4.3 mmol/L (3.5-5.1) 10/16/22 Cl 105 mmol/L (98-107) 10/16/22 CO2 29 mmol/L (21-32) 10/16/22 BUN 15 mg/dl (6-23) 10/16/22 Creat 0.98 mg/dl (0.6-1.4) 10/16/22 POC Glucose 112 mg/dl (70-99) H 10/18/22 PT 11.2 Seconds (9.0-12.0) 10/15/22 PTT 25.8 Seconds (21.0-31.0) 10/15/22 INR 1.0 (0.9-1.1) 10/15/22 HA1c 5.9 % (4.5-5.6) H 10/16/22 Testing Electrocardiogram Date: 09/26/22 Findings: + NSR @ (96bpm) Normal EKG per cardio Chest X-Ray Date: 09/26/22 Findings: + NAD FINDINGS: 2 AP, portable, upright chest radiographs are compared to study dated 06/05/2022. The cardiomediastinal silhouette is unremarkable. There is mild bibasilar scarring/atelectasis. The lungs and pleural spaces are otherwise clear. No pneumothorax is seen. The bony thorax is grossly intact. Fusion hardware is seen in the lower cervical spine. A right shoulder arthroplasty is in place. Echocardiogram Date: 09/22/20 EF 50% Severe hypokinesis of the mid-distal anterior and mid-distal anterolateral flynn and basal inferoseptum and basal inferior wall Abnormal regional strain values in the mid-distal anterior and mid-distal anterolateral flynn and basal inferoseptum Mild cLVH No significant valvular pathology Stress Test Date: 10/23/22 Type: nuclear Technically difficult study due to patient body habitus. Successfully enhanced with Definity contrast. Negative dobutamine stress EKG and stress echo for ischemia at 87% MPHR LV become smaller and LV function improved with dobutamine. Distal anterior and anterior lateral hypokinesis improved with dobutamine infusion. Normal augmentation of all segment flynn without evidence of ischemia with pharmacologic stress Baseline echo: Normal LV size for BSA. Akinesis of the distal anterior lateral and distal anterior wall. The segments appear slightly aneurysmal. Preserved LV systolic functionEF 55%. No LVH.
[~2022-10-29 08:54] MED LIST changes: +GABAPENTIN 900 MG DOSE PO SCH; -LR 15ML/HR IV SCH; +LR 60ML/HR IV SCH; +ceFAZolin 2000MG 2,000 MG/15 ML SYR IV SCH
[2022-10-29] MEDS ORDERED: PROMETHAZINE HCL 6.25 MG in SODIUM CHLORIDE 0.9% 50 ML IV PRN (10:12)
[2022-10-29] MEDS ORDERED: HYDROmorphone INJ 2 MG/ML SYR/VIAL IV PRN (10:12)
[2022-10-29] MEDS ORDERED: ePHEDrine sulfate 50 MG/ML AMP IV PRN (10:12)
[2022-10-29] MEDS ORDERED: ATROPINE SULFATE 0.1 MG/ML 10ML SYR IV PRN (10:12)
[2022-10-29] MEDS ORDERED: ONDANSETRON INJ 2 MG/ML 2 ML VIAL IV PRN ×2 (10:12→15:04)
[2022-10-29] MEDS ORDERED: fentaNYL citrate PF 100 MCG/2 ML VIAL ONE (10:23)
[2022-10-29] MEDS ORDERED: DEXAMETHASONE SOD INJ 4 MG/ML VIAL ONE (10:23)
[2022-10-29] MEDS ORDERED: MIDAZOLAM HCL 1 MG/ML 2ML VIAL ONE (10:23)
[2022-10-29] MEDS ORDERED: PROPOFOL IV EMULSION 10 MG/ML 20 ML VIAL IV ONE (10:23)
[2022-10-29] MEDS ORDERED: ONDANSETRON INJ 2 MG/ML 2 ML VIAL ONE (10:23)
[2022-10-29] MEDS ORDERED: ROCURONIUM BROMIDE 10 MG/ML 5 ML VIAL IV ONE (10:23)
[2022-10-29] MEDS ORDERED: LIDOCAINE 2% 2 ML VIAL/AMP(20MG/ML) INFIL ONE (10:23)
[2022-10-29] MEDS ORDERED: SUGAMMADEX SODIUM 200 MG/2 ML VIAL IV ONE (10:30)
[2022-10-29] MEDS ORDERED: KETAMINE 50 MG/5 ML SYRINGE ONE (10:30)
[2022-10-29] MEDS ORDERED: ceFAZolin 330 MG/ML 1 GM VIAL ONE (11:05)
[2022-10-29] MEDS ORDERED: BUPIVACAINE/EPINEPHRINE 0.25% 1:200,000 30 ML VIAL ONE (11:06)
--- NOTE | 2022-10-29 11:09 | History & Physical Bridge Note ---
Date of Service October 29, 2022 History & Physical Bridge Note I have examined the patient, reviewed the History & Physical and in the interval since the performance of the History & Physical I have noted the following changes of clinical significance: no changes noted
--- NOTE | 2022-10-29 11:11 | History & Physical Report ---
Date of Service October 29, 2022 Assessment & Plan (1) Neurogenic claudication due to lumbar spinal stenosis: Plan: L2-L3 decompression and fusion History of Present Illness Chief Complaint: Back and leg pain Primary Care Provider: Roberto Esposito This is a 57-year-old male presents with chronic persistent back and leg pain after failing course of nonoperative care is here for surgical invention. Allergies Allergy/AdvReac Type Severity Reaction Status Date / Time shellfish derived Allergy Severe Throat Verified 10/29/22 09:41 swelling tramadol Allergy Mild Hives, Verified 10/29/22 09:41 dizziness, nausea acetaminophen AdvReac Mild Nausea Verified 10/29/22 09:41 Home Medications Medication Instructions Recorded Confirmed Type amitriptyline 100 mg tablet 100 mg PO HS 02/16/19 10/29/22 History atorvastatin 80 mg tablet (Lipitor) 80 mg PO HS 02/16/19 10/29/22 History famotidine 20 mg tablet (Pepcid) 20 mg PO BID 02/16/19 10/29/22 History metoprolol succinate 25 mg 25 mg PO QAM 02/23/19 10/29/22 History tablet,extended release 24 hr (Toprol XL) metformin 1,000 mg tablet 1,000 mg PO BID 02/29/20 10/29/22 History melatonin 10 mg tablet 10 mg PO HS 09/07/21 10/29/22 History paroxetine HCl 30 mg tablet (Paxil) 30 mg PO QAM 04/05/22 10/29/22 History cyclobenzaprine 10 mg tablet 10 mg PO TID PRN muscle spasm #15 05/25/22 10/29/22 Rx tabs oxycodone 10 mg tablet 10 mg PO Q6H PRN pain #10 tabs 09/27/22 10/29/22 Rx doxycycline monohydrate 100 mg 100 mg PO BID 10/15/22 10/29/22 History capsule gabapentin 300 mg capsule 300 mg PO BID 10/15/22 10/29/22 History losartan 100 mg tablet 100 mg PO QAM 10/15/22 10/29/22 History Past Med/Surg History Medical History CAD (coronary artery disease) 2006 x 2 stents (LAD, Diagonal) 2011 (PADMINI D1) cardiac stents x3 total (most recent stent 2011) No recent issues Degenerative disc disease s/p cervical fusion Depression Diabetes mellitus, type 2 NIDDM GERD (gastroesophageal reflux disease) controlled, stable per pt History of pulmonary embolism 1990s Hyperlipidemia Hypertension Myocardial Infarction 2012 > stents SIDDHARTHA (obstructive sleep apnea) resolved per pt Surgical History Difficult intubation Right reverse total shoulder replacement (10/08/21): Glidescope#3, ETT 7.5 + PNB at [facility]. *Difficult airway* per anesthesia record comments. No issues noted per post-op anesthesia progress note. Fusion of spine ACDF C6-C7, C5 corpectomy: 08/08/10: MAC#4, ETT 7.5 at [facility] History of cardiac cath 2006 x 2 stents (LAD, Diagonal) 2011 (PADMINI D1) History of colonoscopy History of esophageal dilatation History of esophagogastroduodenoscopy (EGD) History of hip surgery right hip (as a child) History of lumbar fusion 10/04/2020: elective glidescope 3. ETT 8.0. 04/2022 L2-L4 DF with complications d/t infection History of repair of rotator cuff right History of reverse total replacement of right shoulder joint Right reverse total shoulder replacement (10/08/21): Glidescope#3, ETT 7.5 + PNB at [facility]. *Difficult airway* per anesthesia record comments. No issues noted per post-op anesthesia progress note. History of tooth extraction History of total knee replacement right knee S/P arthroscopy of right shoulder 03/18/19. 02/29/20. LMA#5. Family History Father Family history of diabetes mellitus Other No family history of adverse response to anesthesia Social History Smoking Status: Former smoker Tobacco Type: Cigarettes Age Started Using Tobacco: 19; Age Quit Using Tobacco: 56; Smoking End Date: 12 yr ago; Second Hand Exposure: No; Do You Dip or Chew Tobacco: No; Tobacco Cessation Education Requested by Patient: No Hx Alcohol Use: Yes Alcohol type: beer Hx Substance Use: No Preferred Language: Mosotho Communication Ability: Effective Hearing Ability: Normal Bookstore Clerk Required: No Beliefs That Will Affect Care: None marital status: Current Living Situation: Spouse Other Information That Helps Us Care for You: No Feels Safe at Home: Yes Safety Concerns: Feels Safe At This Time Diet: ideal protein caffeine: Yes during the past year weight has: decreased > 10 lbs Assistive Devices: Walker and Wheelchair Physical Exam Physical Exam: Patient is alert and oriented Heart regular in rhythm lungs clear Results & Data Results & Data Vital Signs (Past 12 Hours) Vital Signs Temp Pulse Resp BP Pulse Ox O2 Del Method 10/29/22 09:33 37 C 82 20 145/87 H 98 Room Air
[2022-10-29] MEDS ORDERED: GENTAMICIN SULFATE 40 MG/ML 2 ML VIAL ONE (12:03)
[2022-10-29] MEDS ORDERED: VANCOMYCIN HCL 1000MG/20ML VIAL ONE (12:03)
[2022-10-29] MEDS ORDERED: FLOSEAL HEMOSTATIC MATRIX 10ML TOP ONE (13:04)
[2022-10-29] MEDS ORDERED: PHENYLEPHRINE 100MCG/ML 5ML SYR ONE (13:04)
--- NOTE | 2022-10-29 13:44 | Operative Report ---
Post Operative Report Pre & Post Diagnosis Operation Date: 10/29/22 10:35 Pre-Op Diagnosis: Spinal Stenosis, Lumbar Region with Neurogenic Claudication L2-L3, Previous Fusion L3-S1 Post-Op Diagnosis: Spinal Stenosis, Lumbar Region with Neurogenic Claudication L2-L3, Previous Fusion L3-S1 I identified the patient and participated in the time-out.: Yes Procedure Operation Date: 10/29/22 10:35 Actual Procedures #1 removal of posterior instrumentation L3-S1. #2 exploration of fusion L3-S1. #3 lumbar decompression bilaterally vasectomies and foraminotomies L1-L2 L2-L3. #4 posterior spinal fusion L2-3 #5 posterior instrumentation L2-S1. #6 interbody fusion L2-L3. #7 placement 14 x 26 mm cage at L2-L3. #8 placement locally harvested morselized Autograft and posterior gutters. #9 placement I factor in the interbody space and infuse in the posterior lateral gutters. Surgeon Mynor Purcell, DO Die Hardener Cathleen Dugan Estimated Blood Loss 200 Findings See Below The patient is 5 foot 10 weighing over 104 kg with a BMI in excess of 33. The patient body habitus did contribute to significant technical difficulty Specimens None Indications This is a 57-year-old male known to me the presents above initial diagnosis after failing course of nonoperative care is here for surgical invention. Description of Procedure Patient was identified informed consent obtained. Patient was then taken to the operative suite underwent patient placed in prone position on the Jose table towels and frame. All bony promises well-padded eyes inspected to ensure no external approximately spinal. This point the lumbar spine was prepped and draped in sterile fashion. Sharp dissection with the assistance of Bovie cautery down to and exposing the lamina and transverse processes of L2 and the instrumentation from L3-S1. Then proceeded to move the end caps and rods bilaterally. I noted the loosening of the S1 pedicle screws bilaterally and these were subsequently exchanged to 8.5's. Then performed a complete laminectomy of L2 and proximal laminectomy of L1 including bilateral vasectomies and foraminotomies addressing severe spinal stenosis. Pedicle screws were then placed and L2 in the process klaudia was contoured and placed bilaterally. Bilateral transforaminal approach on the right and complete discectomy of L2-L3 was performed in particular to do so cortical vein bone and a 14 x 26 mm prior cage with I factor to optimization. The rods were then compressed and locked in the final position bilaterally. The transverse processes of L2 and L3 burred to subcortical bone. Infuse collagen sponge, nice graft was placed in the posterior gutters. 15 round KAVITA inserted. Approximately 10 cc of Stimulan beads impregnated with vancomycin and gentamicin were placed throughout the incision. It was then closed with 1 Vicryl fascia 2-0 Vicryl subcutaneously and 4 Monocryl for final skin closure. Steri-Strips sterile dressing placement patient waken taken PACU stable condition. Please note spinal cord monitoring was utilized at the procedure no changes noted. Rajni Dguan was present that the entire surgery involved the patient positioning complex which of the surgery and possible closure. I attest to the content of the Intraoperative Record and any orders documented therein. Any exceptions are noted below.
[2022-10-29] MEDS: fentaNYL citrate PF 100 MCG/2 ML VIAL IV PRN ×4 (14:24→14:40)
--- NOTE | 2022-10-29 14:32 | Fluoroscopy Report ---
INTRAOPERATIVE RADIOGRAPHS CLINICAL HISTORY: L2-L3 spinal fusion. Fluoro time: 13 seconds Ka,r: 9.15 mGy FINDINGS: 4 spot fluoroscopic views of the lumbar spine are presented. There is postoperative change from laminectomy and posterior fusion seen from L2-S1. There has been discectomy at all levels. Inter pedicular screws are in place at all levels and the orthopedic hardware appears intact. IMPRESSION: Intraoperative images from lumbar spinal fusion surgery as above. Electronically signed by: Terrence Chatman M.D. 10/29/2022 2:31 PM
--- NOTE | 2022-10-29 14:54 | Anesthesiology Progress Note ---
Date of Service October 29, 2022 Anesthesia Post Procedure Vital Signs Vital Signs: Temp Pulse Pulse Resp BP Pulse Ox O2 Del Method 10/29/22 14:50 36.3 C L 84 16 122/78 96 Nasal Cannula 10/29/22 14:40 83 19 128/80 95 Nasal Cannula 10/29/22 14:30 87 13 139/74 95 Nasal Cannula 10/29/22 14:20 78 24 141/83 H 99 Oxymask 10/29/22 14:10 80 17 137/85 100 Oxymask 10/29/22 14:03 36.2 C L 83 16 142/82 H 99 Oxymask 10/29/22 09:33 37 C 82 20 145/87 H 98 Room Air O2 Flow Rate 10/29/22 14:50 2 10/29/22 14:40 2 10/29/22 14:30 2 10/29/22 14:20 2 10/29/22 14:10 6 10/29/22 14:03 6 10/29/22 09:33 Pain Intensity Back: Pain Intensity: 8 Transfer of Care Handoff Completed per policy Notes Mental Status: alert / awake / arousable Patient Amnestic to Procedure: Yes Nausea / Vomiting: adequately controlled Pain: adequately controlled Airway Patency, RR, SpO2: stable & adequate BP & HR: stable & adequate Hydration State: stable & adequate Anesthetic Complications: no major complications apparent
[2022-10-29] MEDS ORDERED: ALUMINUM/MAGNESIUM SUSP 30 ML UDC PO PRN (15:04)
[2022-10-29] MEDS ORDERED: LORazepam 2 MG/1 ML VIAL IV PRN (15:04)
[2022-10-29] MEDS ORDERED: ACETAMINOPHEN 1,000 MG/100 ML VIAL IV PRN (15:04)
[2022-10-29] MEDS ORDERED: ONDANSETRON 4 MG OD TAB PO PRN (15:04)
[2022-10-29] MEDS ORDERED: diphenhydrAMINE Capsule 25 MG CAP PO PRN (15:04)
[2022-10-29] MEDS ORDERED: ACETAMINOPHEN 500 MG TAB PO PRN (15:04)
[2022-10-29] MEDS ORDERED: DO NOT ADMINISTER FLU VACCINE PRN (15:04)
[2022-10-29] MEDS ORDERED: METOCLOPRAMIDE HCL INJ 5 MG/ML 2 ML VIAL IV PRN (15:04)
[2022-10-29] MEDS ORDERED: bisacodyL 10 MG SUPP PR PRN (15:04)
[2022-10-29] MEDS ORDERED: FAMOTIDINE 20 MG TAB PO PRN (15:04)
[2022-10-29] MEDS ORDERED: NALOXONE HCL 0.4 MG/1 ML VIAL/CARP IV PRN (15:04)
[2022-10-29] MEDS ORDERED: LORazepam 0.5 MG TAB PO PRN (15:04)
[2022-10-29] MEDS ORDERED: HYDROmorphone INJ 0.5 MG/0.5 ML SYR IV PRN (15:04)
[2022-10-29] MEDS ORDERED: DO NOT ADMINISTER PNEUMOCOCCAL VACCINE PRN (15:04)
[2022-10-29] MEDS ORDERED: hydrOXYzine HCl 25 MG TAB PO PRN (15:04)
[2022-10-29] MEDS ORDERED: PHARMACY GLYCEMIC MGMT CONSULT PRN (15:04)
[2022-10-29] MEDS ORDERED: SOD PHOSPHATE/SOD BIPHOSPHATE ENEMA 132 ML BTL PR PRN (15:04)
[2022-10-29] MEDS ORDERED: PROMETHAZINE HCL 12.5 MG in SODIUM CHLORIDE 0.9% 50 ML IV PRN (15:04)
[2022-10-29] MEDS ORDERED: MAGNESIUM HYDROXIDE SUSP 30 ML UDC PO PRN (15:04)
[2022-10-29] MEDS: HYDROmorphone INJ 1 MG/ML SYRINGE IV PRN ×3 (15:23→21:08)
[2022-10-29] MEDS: LACTATED RINGER'S 1,000 ML IV SCH ×2 (15:29→22:00)
[2022-10-29] MEDS ORDERED: LANTUS PER UNIT CHARGE SC ONE ×2 (15:30→21:00)
[2022-10-29] MEDS ORDERED: CARBOHYDRATES FOR HYPOGLYCEMIA PO PRN (15:30)
[2022-10-29] MEDS ORDERED: DEXTROSE 50% 50 ML SYRINGE IV PRN (15:30)
[2022-10-29] MEDS ORDERED: GLUCAGON FOR INJ 1 MG VIAL IM PRN (15:30)
[2022-10-29] MEDS ORDERED: GLUCOSE 10 TAB/TUBE PO PRN (15:30)
[2022-10-29] MEDS ORDERED: GLUCOSE 40% GEL 15 GM TUBE PO PRN (15:30)
[2022-10-29] MEDS: oxyCODONE HCL IR 5 MG TAB (IMMEDIATE RELEASE) PO PRN ×2 (16:28→22:37)
[2022-10-29] MEDS: INSULIN ASPART PER UNIT CHARGE SC SCH ×2 (17:47→21:13)
--- NOTE | 2022-10-29 18:44 | Hospitalist Consultation ---
Date of Consultation October 29, 2022 Assessment & Plan (1) Post-operative state: 57 y/o male with a PMHx of DC (s/p 3 PADMINI most recently in 2011), T2DM, HLD, HTN, depression, GERD, and previous PE in the here for a L2-L3 surgical decompression admitted for post-operative care. Hospitalist service consulted for medical management of chronic conditions. Patient HDS - normotensive. Saturating well on RA. Overall with appropriate post-operative progress. #Non-insulin dependent diabetes mellitus #Diabetic Neuropathy Patient with well controlled DM - last HbA1c 08/30 5.3. Will do SSI while inpatient. Resume home meds on discharge. Continue with home meds for neuropathy. #Hyperlipidemia Patient with well controlled HLD - last lipids 05/02: Total Chol 128. LDL 51. Will continue home meds. #CAD Hx of DC Hx of PADMINI x3 DC s/p PADMINI x3 on metoprolol. BP well controlled on an outpatient basis. Will continue home meds. #GERD Well controlled. Continue home meds #Depression Stable. Will continue home meds #History of prosthetic joint infection #MSSA Continue home doxycycline 100 mg BID. Follows with ID - Dr. Rachel Code status: full DVT ppx: SCDs FENGI: Heart Healthy, Carb Consistent Dispo: Med/Surg (2) Diabetes mellitus, type 2: (3) CAD (coronary artery disease): (4) Hypertension: (5) Hyperlipidemia: (6) GERD (gastroesophageal reflux disease): Supervising Physician Co-Signing Physician Notes I personally saw and examined the patient. I verified all melgar points and agree with resident physician Dr Abbi Willis, with the following exceptions and/or additions: 57 year old male POD#0 revision lumbar decompression. EBL 200ml. Complicated history with MSSA bacteremia therefore surgery delayed for months to help with infection. Mostly wheelchair bound after recent admission earlier this month for his back pain and weakness. Already noticed some thigh sensation and strength coming back. O/E HS RRR, no murmurs, Chest CTAB, Abdo SNT, normal sensation in toes A/P s/P spinal surgery - pain/VTE/bowel management per primary ortho spine team. Hold parameters placed on ARB, otherwise as above History of Present Illness Reason for Consultation: medical management Requesting Physician: Mynor M Jazzy, DO Attending Physician: Enrrique Laureano MD History of Present Illness 57 y/o male with a PMHx of DC (s/p 3 PADMINI most recently in 2011), T2DM, HLD, HTN, depression, GERD, and previous PE in the here for a L2-L3 surgical decompression. Patient with chronic persistent leg and back pain. Patient's symptoms were not well managed by non-surgical management. He presented for surgical intervention with Dr. Purcell 10/29. Patient was unable to ambulate for the last three weeks due to symptoms. Was using a wheel chair. Has had several admissions as well related to symptoms. Patient did also have a MSSA prosthetic joint infection is on chronic doxy BID. Follows with ID - Dr. Rachel. Hospitalist service was consulted for medical management of patient's chronic conditions. Upon my interview patient is doing well. Numbness/tingling/heaviness of bilateral thighs has significantly improved. Reports continued bilateral foot numbness consistent with his diabetic neuropathy. No fevers or chills. No CP or SOB. Has continued back pain - has improved some. Allergies Allergy/AdvReac Type Severity Reaction Status Date / Time shellfish derived Allergy Severe Throat Verified 10/29/22 09:41 swelling tramadol Allergy Mild Hives, Verified 10/29/22 09:41 dizziness, nausea acetaminophen AdvReac Mild Nausea Verified 10/29/22 09:41 Home Medications Medication Instructions Recorded Confirmed Type amitriptyline 100 mg tablet 100 mg PO HS 02/16/19 10/29/22 History atorvastatin 80 mg tablet (Lipitor) 80 mg PO HS 02/16/19 10/29/22 History famotidine 20 mg tablet (Pepcid) 20 mg PO BID 02/16/19 10/29/22 History metoprolol succinate 25 mg 25 mg PO QAM 02/23/19 10/29/22 History tablet,extended release 24 hr (Toprol XL) metformin 1,000 mg tablet 1,000 mg PO BID 02/29/20 10/29/22 History melatonin 10 mg tablet 10 mg PO HS 09/07/21 10/29/22 History paroxetine HCl 30 mg tablet (Paxil) 30 mg PO QAM 04/05/22 10/29/22 History cyclobenzaprine 10 mg tablet 10 mg PO TID PRN muscle spasm #15 05/25/22 10/29/22 Rx tabs oxycodone 10 mg tablet 10 mg PO Q6H PRN pain #10 tabs 09/27/22 10/29/22 Rx doxycycline monohydrate 100 mg 100 mg PO BID 10/15/22 10/29/22 History capsule gabapentin 300 mg capsule 300 mg PO BID 10/15/22 10/29/22 History losartan 100 mg tablet 100 mg PO QAM 10/15/22 10/29/22 History Patient History Medical History CAD (coronary artery disease) 2007 x 2 stents (LAD, Diagonal) 2012 (PADMINI D1) cardiac stents x3 total (most recent stent 2011) No recent issues Degenerative disc disease s/p cervical fusion Depression Diabetes mellitus, type 2 NIDDM GERD (gastroesophageal reflux disease) controlled, stable per pt History of pulmonary embolism 1990s Hyperlipidemia Hypertension Myocardial Infarction 2012 > stents SIDDHARTHA (obstructive sleep apnea) resolved per pt Surgical History (Updated 10/29/22 @ 18:56 by Abbi Willis MD) Difficult intubation Right reverse total shoulder replacement (10/08/21): Glidescope#3, ETT 7.5 + PNB at [facility]. *Difficult airway* per anesthesia record comments. No issues noted per post-op anesthesia progress note. Fusion of spine ACDF C6-C7, C5 corpectomy: 08/08/10: MAC#4, ETT 7.5 at [facility] History of cardiac cath 2006 x 2 stents (LAD, Diagonal) 2011 (PADMINI D1) History of colonoscopy History of esophageal dilatation History of esophagogastroduodenoscopy (EGD) History of hip surgery right hip (as a child) History of lumbar fusion 10/04/2020: elective glidescope 3. ETT 8.0. 04/2022 L2-L4 DF with complications d/t infection History of repair of rotator cuff right History of reverse total replacement of right shoulder joint Right reverse total shoulder replacement (10/08/21): Glidescope#3, ETT 7.5 + PNB at [facility]. *Difficult airway* per anesthesia record comments. No issues noted per post-op anesthesia progress note. History of tooth extraction History of total knee replacement right knee S/P arthroscopy of right shoulder 03/18/19. 02/29/20. LMA#5. Family History Father Family history of diabetes mellitus Other No family history of adverse response to anesthesia Social History Smoking Status: Former smoker Tobacco Type: Cigarettes Age Started Using Tobacco: 19; Age Quit Using Tobacco: 56; Smoking End Date: 12 yr ago; Second Hand Exposure: No; Do You Dip or Chew Tobacco: No; Tobacco Cessation Education Requested by Patient: No Hx Alcohol Use: Yes Alcohol type: beer Hx Substance Use: No Preferred Language: Belarusian Communication Ability: Effective Hearing Ability: Normal Surface Miner Required: No Beliefs That Will Affect Care: None marital status: Current Living Situation: Spouse Other Information That Helps Us Care for You: No Feels Safe at Home: Yes Safety Concerns: Feels Safe At This Time Diet: ideal protein caffeine: Yes during the past year weight has: decreased > 10 lbs Assistive Devices: Walker and Wheelchair Review of Systems Review of Systems: See HPI Physical Exam Physical Exam: Gen: well appearing male in NAD HEENT: AT IA EOMI MMM Resp: CTAB no wheezing no increased work of breathing CV: RRR no m/r/g peripheral pulses 2+ symmetric, clinically well perfused Abd: soft non-tender non-distended +BS no mass or HSM noted Psych: appropriate mood and affect Neuro: alert and oriented, moving all extremities on command, good strength in all extremities, no obvious neurological deficits, sensation to light touch intact and symmetric Skin: tattoos present, no signs of infection/new tattoo, otherwise no obvious bruising or rashes present Results & Data Results & Data Vital Signs (Past 12 Hours) Vital Signs Temp Pulse Pulse Pulse Resp BP Pulse Ox 10/29/22 18:00 36.7 C 83 16 123/69 96 10/29/22 16:57 37.1 C 74 16 123/70 97 10/29/22 16:36 10/29/22 16:00 36.5 C 83 16 117/72 97 10/29/22 15:30 36.5 C 88 16 128/80 96 10/29/22 15:00 36.7 C 90 16 114/75 97 10/29/22 14:50 36.3 C L 84 16 122/78 96 10/29/22 14:40 83 19 128/80 95 10/29/22 14:30 87 13 139/74 95 10/29/22 14:20 78 24 141/83 H 99 10/29/22 14:10 80 17 137/85 100 10/29/22 14:03 36.2 C L 83 16 142/82 H 99 10/29/22 09:33 37 C 82 20 145/87 H 98 O2 Del Method O2 Flow Rate 10/29/22 18:00 Room Air 10/29/22 16:57 Room Air 10/29/22 16:36 Nasal Cannula 2 10/29/22 16:00 Room Air 10/29/22 15:30 Nasal Cannula 2 10/29/22 15:00 Nasal Cannula 2 10/29/22 14:50 Nasal Cannula 2 10/29/22 14:40 Nasal Cannula 2 10/29/22 14:30 Nasal Cannula 2 10/29/22 14:20 Oxymask 2 10/29/22 14:10 Oxymask 6 10/29/22 14:03 Oxymask 6 10/29/22 09:33 Room Air Resident Activity Tracking Resident Involvement: Resident Care Provided Care Provided: Adult Hospital Medicine
[2022-10-29] MEDS: DOCUSATE SODIUM/SENNA 50/8.6MG TAB PO SCH (21:06)
[2022-10-29] MEDS: ATORVASTATIN 40 MG TAB PO SCH (21:06)
[2022-10-29] MEDS: AMITRIPTYLINE HCL 100 MG TAB PO SCH (21:06)
[2022-10-29] MEDS: GABAPENTIN 300 MG CAP PO SCH (21:07)
[2022-10-29] MEDS: DOXYCYCLINE HYCLATE 100 MG CAP PO SCH (21:07)
[2022-10-29] MEDS: FAMOTIDINE 20 MG TAB PO SCH (21:07)
[2022-10-29] MEDS: MELATONIN 3 MG TAB PO SCH (21:08)
[2022-10-29] MEDS: ceFAZolin 2000MG 2,000 MG/15 ML SYR IV SCH (22:38)
[2022-10-30] MEDS: HYDROmorphone INJ 1 MG/ML SYRINGE IV PRN ×8 (00:15→23:04)
[2022-10-30] MEDS: INSULIN ASPART PER UNIT CHARGE SC SCH ×6 (00:21→21:30)
[2022-10-30] MEDS: ceFAZolin 2000MG 2,000 MG/15 ML SYR IV SCH (04:10)
[2022-10-30] MEDS: oxyCODONE HCL IR 5 MG TAB (IMMEDIATE RELEASE) PO PRN ×3 (04:18→18:07)
[2022-10-30] MEDS: LACTATED RINGER'S 1,000 ML IV SCH (04:57)
[2022-10-30 06:26] LABS: Basophils # (auto) 0.03 K/uL (0-0.2); Basophils % (auto) 0.2 %; Eosinophils # (auto) 0.02 K/uL (0-0.50); Eosinophils % (auto) 0.1 %; Hematocrit (blood only) 31.8 % (42.0-52.0); Immature Granulocytes % (auto) 0.6 %; Lymphocytes # (auto) 1.62 K/uL (1.2-3.4); Lymphocytes % (auto) 9.3 %; Mean Corpuscular Hemoglobin 30.2 pg (25.0-34.0); Mean Corpuscular Hgb Conc 34.6 g/dL (32.0-36.0); Mean Corpuscular Volume 87.4 fL (80.0-100.0); Mean Platelet Volume 10.3 fL (9.4-12.4); Monocytes # (auto) 1.27 K/uL (0.11-0.59); Monocytes % (auto) 7.3 %; Neutrophils # (auto) 14.37 K/uL (1.40-6.50); Neutrophils % (auto) 82.5 %; Platelet Count 212 K/uL (130-400); RDW Coefficient of Variation 13.7 % (11.5-14.5); RDW Standard Deviation 43.8 fL (36.4-46.3); Red Blood Count 3.64 M/uL (4.70-6.10); White Blood Count 17.41 K/ul (4.8-10.8)
[2022-10-30 06:49] LABS: BUN Creatinine Ratio 19.1 (10-20); Calcium 8.7 mg/dl (8.6-10.3); Creatinine Clr Calc Pharmacy 104.9 ml/min; Est GFR (African American) 103.9 ml/min; Est GFR (Non-African American) 89.6 ml/min; Potassium 4.5 mmol/L (3.5-5.1)
[2022-10-30] MEDS: POLYETHYLENE (MIRALAX) 17 GM PACK PO SCH ×4 (06:50→21:32)
--- NOTE | 2022-10-30 07:40 | Billing Data ---
Date of Service October 29, 2022 Coding Level of Care Code 14252 IN/OBS CONSULT LVL 3,45M
[2022-10-30] MEDS ORDERED: LANTUS PER UNIT CHARGE SC ONE (08:00)
--- NOTE | 2022-10-30 08:23 | Orthopedic Progress Note ---
Date of Service October 30, 2022 Assessment & Plan (1) Back pain: Plan: Kareem is postoperative day 1 status post hard removal of S1 screws, decompression L2-3 with interbody cage and reinstrumentation L2-S1. He had an uneventful evening. He will start physical therapy today. Maintain KAVITA drain. Continue with pain control. DVT prophylaxis is in the form of teds and SCDs. Work on aggressive bowel regimen. Anticipate discharge home Friday or Friday. Admission and Anticipated Discharge Date Admission Date: October 29, 2022 Subjective Kareem is postoperative day 1 status post hard removal of S1 screws, decompression of L2-3 with interbody cage at L2-3 reinstrumentation L2-S1. He had an uneventful evening. No complaints of radicular pain. Back pain is controlled. KAVITA drain output last shift is 50 cc. H&H this morning are 11.0 and 31.8 respectively. Review of Systems Review of Systems: All systems reviewed & are unremarkable except as noted in HPI & below Physical Exam Physical Exam: He is lying in bed in no acute distress Alert and oriented x3 Lumbar dressing is clean dry and intact with functioning KAVITA drain Calf soft nontender bilateral Strength intact bilateral lower extremity Results & Data Vital Signs (Past 12 Hours) Vital Signs Temp Pulse Pulse Resp BP Pulse Ox O2 Del Method 10/30/22 07:42 36.9 C 69 16 129/73 97 Room Air 10/30/22 03:01 36.5 C 65 18 113/64 95 Room Air 10/29/22 21:34 Room Air 10/29/22 23:25 36.4 C L 79 18 114/68 95 Room Air 10/29/22 20:55 36.7 C 79 18 124/75 94 Room Air (1) Back pain Back pain laterality: unspecified Back pain location: back pain in unspecified location Chronicity: unspecified Qualified Code(s): M54.9 - Dorsalgia, unspecified
--- NOTE | 2022-10-30 08:31 | Hospitalist Progress Note ---
Date of Service October 30, 2022 Assessment & Plan (1) Post-operative state: Plan: 57 y/o male with a PMHx of MD (s/p 3 PADMINI most recently in 2011), T2DM, HLD, HTN, depression, GERD, and previous PE in the here for a L2-L3 surgical decompression admitted for post-operative care. Hospitalist service consulted for medical management of chronic conditions. POD#1 s/p #1 removal of posterior instrumentation L3-S1. #2 exploration of fusion L3-S1. #3 lumbar decompression bilaterally vasectomies and foraminotomies L1-L2 L2-L3. #4 posterior spinal fusion L2-3 #5 posterior instrumentation L2-S1. #6 interbody fusion L2-L3. #7 placement 14 x 26 mm cage at L2-L3. #8 placement locally harvested morselized Autograft and posterior gutters. #9 placement I factor in the interbody space and infuse in the posterior lateral gutters. with Dr Purcell 10/29. EBL 200cc WBC elevation likely 2nd to steroids, afebrile Hgb 11.3--> 11.0, acute blood loss from surgery, stable. Pain control/bowel regimen per primary service PT/OT for today DVT Proph: SCDs/manju mahmood. messaged primary about resuming his asa 81mg daily given hx CAD/stenting (can resume POD#3 on Friday per Cathleen Donaldson) Monitor #Non-insulin dependent diabetes mellitus #Diabetic Neuropathy Patient with well controlled DM - last HbA1c 08/30 5.3. BSG AC/HS while inpatient with sliding scale Continue neuropathic medications Monitor bsgs - acceptable #Hyperlipidemia/HTN Patient with well controlled HLD - last lipids 05/02: Total Chol 128. LDL 51. Continue home medications Continues on metoprolol, losartan 100mg daily. BP/renal function stable #CAD Hx of MD Hx of PADMINI x3 MD s/p PADMINI x3 on metoprolol. BP well controlled on an outpatient basis. Will continue home meds - ASA to be resumed FRIDAY as above. No CP/SOB reported #GERD Well controlled. Continue home meds #Depression Stable. Will continue pepcid BID #History of prosthetic joint infection #MSSA Continue home doxycycline 100 mg BID. Follows with ID - Dr. Rachel Code status: full DVT ppx: SCDs FENGI: Heart Healthy, Carb Consistent Dispo: Med/Surg (2) Diabetes mellitus, type 2: (3) CAD (coronary artery disease): (4) Hypertension: (5) Hyperlipidemia: (6) GERD (gastroesophageal reflux disease): Plan Thank you for allowing hospitalist medicine to participate in the care of Mr Guan. Hospitalist service will follow up in AM but if remaining stable likely can sign off. Please call with any questions/concerns in the meantime. Admission and Anticipated Discharge Date Admission Date: October 29, 2022 Supervising Physician Co-Signing Physician Notes The patient was not seen by me. The chart was reviewed. Case discussed with HANNAH Marie. Agree with assessment and plan Subjective Eval this morning around 1130, sitting up in bed, no acute distress. walked the halls twice, passing some gas. good appetite. states ortho said no infection in the back. discussed bowel regimen to prevent constipation. no chest pain/shortness of breath. questions/concerns addressed at this time. Review of Systems Review of Systems: All systems reviewed & are unremarkable except as noted in HPI & below Physical Exam Physical Exam: Gen: WD/WN obese male sitting up in bed, NAD HEENT: head normocephalic, atraumatic, mmm, trachea midline Resp: CTA, no w/c/r, on room air CV: RRR, no significant m/r/g, no pitting edema, manju hoses in place, pulses palpable GI: +BS throughout, slight distension, nontender : no sheppard MSK/Neuro: dressing c/d/i, strength equal b/l LE, KAVITA w/ scant bloody drainage noted Psych: AOx3, cooperative and pleasant with examination Results & Data Results & Data Vital Signs (Past 12 Hours) Vital Signs Temp Pulse Pulse Resp BP Pulse Ox O2 Del Method 10/30/22 07:42 36.9 C 69 16 129/73 97 Room Air 10/30/22 03:01 36.5 C 65 18 113/64 95 Room Air 10/29/22 21:34 Room Air 10/29/22 23:25 36.4 C L 79 18 114/68 95 Room Air 10/29/22 20:55 36.7 C 79 18 124/75 94 Room Air Laboratory Results 10/30/22 10/30/22 10/30/22 Range/Units 07:43 05:43 05:43 WBC 17.41 H (4.8-10.8) K/ul RBC 3.64 L (4.70-6.10) M/uL Hgb 11.0 L (14.0-18.0) g/dl Hct 31.8 L (42.0-52.0) % MCV 87.4 (80.0-100.0) fL MCH 30.2 (25.0-34.0) pg MCHC 34.6 (32.0-36.0) g/dL RDW Std Deviation 43.8 (36.4-46.3) fL RDW Coeff of Padmini 13.7 (11.5-14.5) % Plt Count 212 (130-400) K/uL MPV 10.3 (9.4-12.4) fL Immature Gran % (Auto) 0.6 % Neut % (Auto) 82.5 % Lymph % (Auto) 9.3 % [place] % (Auto) 7.3 % Eos % (Auto) 0.1 % Baso % (Auto) 0.2 % Neut # (Auto) 14.37 H (1.40-6.50) K/uL Lymph # (Auto) 1.62 (1.2-3.4) K/uL [place] # (Auto) 1.27 H (0.11-0.59) K/uL Eos # (Auto) 0.02 (0-0.50) K/uL Baso # (Auto) 0.03 (0-0.2) K/uL Immature Gran # (Auto) 0.10 (0.01-0.20) K/uL Sodium 136 (136-145) mmol/L Potassium 4.5 (3.5-5.1) mmol/L Chloride 106 (98-107) mmol/L Carbon Dioxide 25 (21-32) mmol/L Anion Gap 5 (3-11) BUN 18 (6-23) mg/dl Creatinine 0.94 (0.6-1.4) mg/dl Est Cr Clr Drug Dosing 104.9 ml/min Est GFR ( Amer) 103.9 ml/min Est GFR (Non-Af Amer) 89.6 ml/min BUN/Creatinine Ratio 19.1 (10-20) Glucose 152 H (70-99(Fasting)) mg/dl POC Glucose 119 H (70-99) mg/dl Calcium 8.7 (8.6-10.3) mg/dl Blood Type Antibody Screen 10/30/22 10/30/22 10/29/22 Range/Units 04:17 00:18 20:52 WBC (4.8-10.8) K/ul RBC (4.70-6.10) M/uL Hgb (14.0-18.0) g/dl Hct (42.0-52.0) % MCV (80.0-100.0) fL MCH (25.0-34.0) pg MCHC (32.0-36.0) g/dL RDW Std Deviation (36.4-46.3) fL RDW Coeff of Padmini (11.5-14.5) % Plt Count (130-400) K/uL MPV (9.4-12.4) fL Immature Gran % (Auto) % Neut % (Auto) % Lymph % (Auto) % [place] % (Auto) % Eos % (Auto) % Baso % (Auto) % Neut # (Auto) (1.40-6.50) K/uL Lymph # (Auto) (1.2-3.4) K/uL [place] # (Auto) (0.11-0.59) K/uL Eos # (Auto) (0-0.50) K/uL Baso # (Auto) (0-0.2) K/uL Immature Gran # (Auto) (0.01-0.20) K/uL Sodium (136-145) mmol/L Potassium (3.5-5.1) mmol/L Chloride (98-107) mmol/L Carbon Dioxide (21-32) mmol/L Anion Gap (3-11) BUN (6-23) mg/dl Creatinine (0.6-1.4) mg/dl Est Cr Clr Drug Dosing ml/min Est GFR ( Amer) ml/min Est GFR (Non-Af Amer) ml/min BUN/Creatinine Ratio (10-20) Glucose (70-99(Fasting)) mg/dl POC Glucose 186 H 171 H 200 H (70-99) mg/dl Calcium (8.6-10.3) mg/dl Blood Type Antibody Screen 10/29/22 10/29/22 10/29/22 Range/Units 16:58 15:36 14:07 WBC (4.8-10.8) K/ul RBC (4.70-6.10) M/uL Hgb (14.0-18.0) g/dl Hct (42.0-52.0) % MCV (80.0-100.0) fL MCH (25.0-34.0) pg MCHC (32.0-36.0) g/dL RDW Std Deviation (36.4-46.3) fL RDW Coeff of Padmini (11.5-14.5) % Plt Count (130-400) K/uL MPV (9.4-12.4) fL Immature Gran % (Auto) % Neut % (Auto) % Lymph % (Auto) % [place] % (Auto) % Eos % (Auto) % Baso % (Auto) % Neut # (Auto) (1.40-6.50) K/uL Lymph # (Auto) (1.2-3.4) K/uL [place] # (Auto) (0.11-0.59) K/uL Eos # (Auto) (0-0.50) K/uL Baso # (Auto) (0-0.2) K/uL Immature Gran # (Auto) (0.01-0.20) K/uL Sodium (136-145) mmol/L Potassium (3.5-5.1) mmol/L Chloride (98-107) mmol/L Carbon Dioxide (21-32) mmol/L Anion Gap (3-11) BUN (6-23) mg/dl Creatinine (0.6-1.4) mg/dl Est Cr Clr Drug Dosing ml/min Est GFR ( Amer) ml/min Est GFR (Non-Af Amer) ml/min BUN/Creatinine Ratio (10-20) Glucose (70-99(Fasting)) mg/dl POC Glucose 136 H 135 H 155 H (70-99) mg/dl Calcium (8.6-10.3) mg/dl Blood Type Antibody Screen 10/29/22 10/29/22 Range/Units 09:42 09:42 WBC (4.8-10.8) K/ul RBC (4.70-6.10) M/uL Hgb (14.0-18.0) g/dl Hct (42.0-52.0) % MCV (80.0-100.0) fL MCH (25.0-34.0) pg MCHC (32.0-36.0) g/dL RDW Std Deviation (36.4-46.3) fL RDW Coeff of Padmini (11.5-14.5) % Plt Count (130-400) K/uL MPV (9.4-12.4) fL Immature Gran % (Auto) % Neut % (Auto) % Lymph % (Auto) % [place] % (Auto) % Eos % (Auto) % Baso % (Auto) % Neut # (Auto) (1.40-6.50) K/uL Lymph # (Auto) (1.2-3.4) K/uL [place] # (Auto) (0.11-0.59) K/uL Eos # (Auto) (0-0.50) K/uL Baso # (Auto) (0-0.2) K/uL Immature Gran # (Auto) (0.01-0.20) K/uL Sodium (136-145) mmol/L Potassium (3.5-5.1) mmol/L Chloride (98-107) mmol/L Carbon Dioxide (21-32) mmol/L Anion Gap (3-11) BUN (6-23) mg/dl Creatinine (0.6-1.4) mg/dl Est Cr Clr Drug Dosing ml/min Est GFR ( Amer) ml/min Est GFR (Non-Af Amer) ml/min BUN/Creatinine Ratio (10-20) Glucose (70-99(Fasting)) mg/dl POC Glucose 129 H (70-99) mg/dl Calcium (8.6-10.3) mg/dl Blood Type A Positive Antibody Screen NEGATIVE Diagnostic Findings Lumbar Spine X-Ray 10/29/22 12:25 INTRAOPERATIVE RADIOGRAPHS CLINICAL HISTORY: L2-L3 spinal fusion. Fluoro time: 13 seconds Ka,r: 9.15 mGy FINDINGS: 4 spot fluoroscopic views of the lumbar spine are presented. There is postoperative change from laminectomy and posterior fusion seen from L2-S1. There has been discectomy at all levels. Interpedicular screws are in place at all levels and the orthopedic hardware appears intact. IMPRESSION: Intraoperative images from lumbar spinal fusion surgery as above. Electronically signed by: Terrence Chatman M.D. 10/29/2022 2:31 PM PG Care Time/CCT Total # of Minutes Spent Total Time Spent with Patient: Total time spent is greater than 50% in coordination of care (as documented) at patient's floor/unit and/or counseling patient: Coding Level of Care Code 51493 SUB INP/OBS CARE 2/35MIN Diagnoses Post-operative state Z98.890 Diabetes mellitus, type 2 E11.9 CAD (coronary artery disease) I25.10 Hypertension I10 Hyperlipidemia E78.5 GERD (gastroesophageal reflux disease) K21.9
[2022-10-30] MEDS: METOPROLOL SUCC 25MG EXT REL TAB PO SCH (08:35)
[2022-10-30] MEDS: GABAPENTIN 300 MG CAP PO SCH ×2 (08:35→21:29)
[2022-10-30] MEDS: PARoxetine HCL 10 MG TAB PO SCH (08:35)
[2022-10-30] MEDS: LOSARTAN POTASSIUM 50 MG TAB PO SCH (08:35)
[2022-10-30] MEDS: DOXYCYCLINE HYCLATE 100 MG CAP PO SCH ×2 (08:35→21:29)
[2022-10-30] MEDS: FAMOTIDINE 20 MG TAB PO SCH ×2 (08:35→21:29)
[2022-10-30] MEDS: dexAMETHasone 6 MG in SYRINGE 0 ML IV SCH (08:36)
--- NOTE | 2022-10-30 13:41 | Pharmacy Report ---
Pharmacy Glycemic Short Note 2 - Date of Service October 30, 2022 - Glycemic Short BSG Results (Last 24 hours): 10/29/22 10/29/22 10/29/22 14:07 15:36 16:58 Glucose POC Glucose 155 H 135 H 136 H 10/29/22 10/30/22 10/30/22 20:52 00:18 04:17 Glucose POC Glucose 200 H 171 H 186 H 10/30/22 10/30/22 10/30/22 05:43 07:43 11:43 Glucose 152 H POC Glucose 119 H 117 H OUTPATIENT ANTIDIABETIC REGIMEN: * Metformin 1gm PO BID * HbA1c: 5.9% (10/16/22) ASSESSMENT: * Mr García is a 57yo diabetic M, POD #1 s/p spinal procedure w/ Dr Purclel yesterday morning. * Pt is ordered IV dexamethasone daily x3 days, which is likely to contribute to steroid-induced hyperglycemia. Pt was initiated on SQ basal/bolus insulin post-op. * BSGs have been reasonably well-controlled post-op. Will continue to utilize insulin while pt is receiving DXM. * Pharmacy will continue to follow and adjust regimen as indicated. PLAN FOR INPATIENT GLYCEMIC CONTROL: * Hold outpatient oral diabetes medications * Basal insulin * Lantus 40 units SQ given last evening * Lantus 25 units SQ x1 dose this morning * Will re-evaluate tomorrow morning * Bolus insulin * NovoLog per scale ACHS or Q6hrs while NPO * Goal Range: Low 110 mg/dL - High 140 mg/dL * Correction Factor: 15 mg/dL/unit * Nutritional / Prandial insulin per carb ratio of 1 unit per 5 grams CHO consumed
[2022-10-30] MEDS: DOCUSATE SODIUM/SENNA 50/8.6MG TAB PO SCH (21:28)
[2022-10-30] MEDS: ATORVASTATIN 40 MG TAB PO SCH (21:28)
[2022-10-30] MEDS: AMITRIPTYLINE HCL 100 MG TAB PO SCH (21:28)
[2022-10-30] MEDS: MELATONIN 3 MG TAB PO SCH (21:29)
[2022-10-31] MEDS: oxyCODONE HCL IR 5 MG TAB (IMMEDIATE RELEASE) PO PRN ×5 (00:08→23:45)
[2022-10-31] MEDS: HYDROmorphone INJ 1 MG/ML SYRINGE IV PRN ×6 (02:11→20:23)
[2022-10-31] MEDS: POLYETHYLENE (MIRALAX) 17 GM PACK PO SCH ×4 (05:04→23:46)
--- NOTE | 2022-10-31 08:06 | Hospitalist Progress Note ---
Date of Service October 31, 2022 Assessment & Plan (1) Post-operative state: Plan: 57 y/o male with a PMHx of NC (s/p 3 PADMINI most recently in 2011), T2DM, HLD, HTN, depression, GERD, and previous PE in the here for a L2-L3 surgical decompression admitted for post-operative care. Hospitalist service consulted for medical management of chronic conditions. POD#2 s/p #1 removal of posterior instrumentation L3-S1. #2 exploration of fusion L3-S1. #3 lumbar decompression bilaterally vasectomies and foraminotomies L1-L2 L2-L3. #4 posterior spinal fusion L2-3 #5 posterior instrumentation L2-S1. #6 interbody fusion L2-L3. #7 placement 14 x 26 mm cage at L2-L3. #8 placement locally harvested morselized Autograft and posterior gutters. #9 placement I factor in the interbody space and infuse in the posterior lateral gutters. with Dr Purcell 10/29. EBL 200cc WBC elevation likely 2nd to steroids, afebrile Hgb 11.3--> 11.0, acute blood loss from surgery, stable. Pain control/bowel regimen per primary service PT/OT DVT Proph: Derek/manju mahmood. messaged primary about resuming his asa 81mg daily given hx CAD/stenting (can resume POD#3 on Friday per Cathleen Donaldson) Monitor #Non-insulin dependent diabetes mellitus #Diabetic Neuropathy Patient with well controlled DM - last HbA1c 08/30 5.3. BSG AC/HS while inpatient with sliding scale Continue neuropathic medications Monitor bsgs acceptable and well controlled at present #Hyperlipidemia/HTN Patient with well controlled HLD - last lipids 05/02: Total Chol 128. LDL 51. Continue home medications Continues on metoprolol, losartan 100mg daily. BP/renal function stable BP 127/80 currently w/ reported pain #CAD Hx of NC Hx of PADMINI x3 NC s/p PADMINI x3 on metoprolol. BP well controlled on an outpatient basis. Will continue home meds - ASA to be resumed FRIDAY as above. No CP/SOB reported #GERD Well controlled. Continue home meds #Depression Stable. Will continue pepcid BID #History of prosthetic joint infection #MSSA Continue home doxycycline 100 mg BID. Follows with ID - Dr. Rachel Code status: full DVT ppx: SCDs FENGI: Heart Healthy, Carb Consistent Dispo: Med/Surg (2) Diabetes mellitus, type 2: (3) CAD (coronary artery disease): (4) Hypertension: (5) Hyperlipidemia: (6) GERD (gastroesophageal reflux disease): Plan Thank you for allowing hospitalist medicine to participate in the care of Mr Guan. Hospitalist service will sign off at this time. Messaged orthopedics PA-C regarding such. Please call with any questions/concerns in the meantime. Admission and Anticipated Discharge Date Admission Date: October 29, 2022 Supervising Physician Co-Signing Physician Notes The patient was not seen by me. The chart was reviewed. Case discussed with HANNAH Marie. Agree with assessment and plan Subjective Eval this morning, painful but controlled with ordered medications. Was out of bed with walker. Eating/drinking, passing gas but no BM. Aspirin to be resumed tomorrow. Currently getting new IV site by IV team. Discussed signing off given no fever/chills, chest pain, shortness of breath/abdominal pain and will message orthopedics to call if any needs at this time. Questions/concerns addressed at this time. Physical Exam Physical Exam: Gen: WD/WN obese male sitting up in bed, NAD, getting new IV site, laying flat in bed with warm compresses to bilateral arms HEENT: head normocephalic, atraumatic, mmm, trachea midline Resp: CTA, no w/c/r, on room air CV: RRR, no significant m/r/g, no pitting edema, manju hoses in place, pulses palpable GI: +BS throughout, nontender : no sheppard MSK/Neuro: dressing c/d/i, strength equal b/l LE, KAVITA w/ scant bloody drainage noted Psych: AOx3, cooperative and pleasant with examination Results & Data Results & Data Vital Signs (Past 12 Hours) Vital Signs Temp Pulse Pulse Resp BP Pulse Ox O2 Del Method 10/31/22 07:38 36.5 C 64 16 127/80 97 Room Air 10/30/22 20:35 36.8 C 77 18 133/78 96 Room Air Laboratory Results 10/31/22 10/30/22 10/30/22 Range/Units 07:40 20:32 16:41 POC Glucose 122 H 133 H 145 H (70-99) mg/dl 10/30/22 Range/Units 11:43 POC Glucose 117 H (70-99) mg/dl PG Care Time/CCT Total # of Minutes Spent Total Time Spent with Patient: Total time spent is greater than 50% in coordination of care (as documented) at patient's floor/unit and/or counseling patient: Coding Level of Care Code 36949 SUB INP/OBS CARE 2/35MIN Diagnoses Post-operative state Z98.890 Diabetes mellitus, type 2 E11.9 CAD (coronary artery disease) I25.10 Hypertension I10 Hyperlipidemia E78.5 GERD (gastroesophageal reflux disease) K21.9
[2022-10-31] MEDS ORDERED: LANTUS PER UNIT CHARGE SC SCH (09:00)
[2022-10-31] MEDS: INSULIN ASPART PER UNIT CHARGE SC SCH ×4 (09:04→21:37)
[2022-10-31] MEDS: DOXYCYCLINE HYCLATE 100 MG CAP PO SCH ×2 (09:16→20:26)
[2022-10-31] MEDS: GABAPENTIN 300 MG CAP PO SCH ×2 (09:17→20:26)
[2022-10-31] MEDS: PARoxetine HCL 10 MG TAB PO SCH (09:17)
[2022-10-31] MEDS: dexAMETHasone 6 MG in SYRINGE 0 ML IV SCH (09:17)
[2022-10-31] MEDS: FAMOTIDINE 20 MG TAB PO SCH ×2 (09:17→20:26)
[2022-10-31] MEDS: METOPROLOL SUCC 25MG EXT REL TAB PO SCH (09:17)
[2022-10-31] MEDS: LOSARTAN POTASSIUM 50 MG TAB PO SCH (09:17)
--- NOTE | 2022-10-31 10:27 | Orthopedic Progress Note ---
Date of Service October 31, 2022 Assessment & Plan (1) Neurogenic claudication due to lumbar spinal stenosis: Plan: At this time continue physical therapy monitor his KAVITA output anticipate discharge home tomorrow. We will discharge him home on his doxycycline oral a ntibiotic. Admission and Anticipated Discharge Date Admission Date: October 29, 2022 Subjective Back pain controlled leg symptoms markedly improved Physical Exam Physical Exam: Patient is comfortable. His consent to testing. Results & Data Vital Signs (Past 12 Hours) Vital Signs Temp Pulse Resp BP Pulse Ox O2 Del Method 10/31/22 07:38 36.5 C 64 16 127/80 97 Room Air Queries Orthopedic Spine Obesity: Yes
--- NOTE | 2022-10-31 14:54 | Pharmacy Report ---
Pharmacy Glycemic Short Note 2 - Date of Service October 31, 2022 - Glycemic Short BSG Results (Last 24 hours): 10/30/22 10/30/22 10/31/22 16:41 20:32 07:40 POC Glucose 145 H 133 H 122 H 10/31/22 11:53 POC Glucose 139 H OUTPATIENT ANTIDIABETIC REGIMEN: * Metformin 1gm PO BID * HbA1c: 5.9% (10/16/22) ASSESSMENT: 10/31: * Kareem received a total of 54 units of insulin yesterday with good glycemic con trol, BSGs: 119, 117, 145, 133 mg/dL. * Continues on dexamethasone 6 mg IV daily (today is dose 2 of 3). * No changes to current regimen. 10/30: * Mr García is a 57yo diabetic M, POD #1 s/p spinal procedure w/ Dr Purcell yesterday morning. * Pt is ordered IV dexamethasone daily x3 days, which is likely to contribute to steroid-induced hyperglycemia. Pt was initiated on SQ basal/bolus insulin post-op. * BSGs have been reasonably well-controlled post-op. Will continue to utilize insulin while pt is receiving DXM. * Pharmacy will continue to follow and adjust regimen as indicated. PLAN FOR INPATIENT GLYCEMIC CONTROL: * Hold outpatient oral diabetes medications * Basal insulin * Lantus 25 units SQ qAM ordered for 10/31 and 11/01 * Bolus insulin * NovoLog per scale ACHS or Q6hrs while NPO * Goal Range: Low 110 mg/dL - High 140 mg/dL * Correction Factor: 15 mg/dL/unit * Nutritional / Prandial insulin per carb ratio of 1 unit per 5 grams CHO consumed
[2022-10-31] MEDS: DOCUSATE SODIUM/SENNA 50/8.6MG TAB PO SCH (20:25)
[2022-10-31] MEDS: MELATONIN 3 MG TAB PO SCH (20:25)
[2022-10-31] MEDS: AMITRIPTYLINE HCL 100 MG TAB PO SCH (20:26)
[2022-10-31] MEDS: ATORVASTATIN 40 MG TAB PO SCH (20:27)
[2022-11-01] MEDS: HYDROmorphone INJ 1 MG/ML SYRINGE IV PRN (03:44)
[2022-11-01] MEDS: POLYETHYLENE (MIRALAX) 17 GM PACK PO SCH ×2 (06:14→11:40)
[2022-11-01] MEDS: LOSARTAN POTASSIUM 50 MG TAB PO SCH (07:41)
[2022-11-01] MEDS: GABAPENTIN 300 MG CAP PO SCH (07:41)
[2022-11-01] MEDS: dexAMETHasone 6 MG in SYRINGE 0 ML IV SCH (07:41)
[2022-11-01] MEDS: PARoxetine HCL 10 MG TAB PO SCH (07:41)
[2022-11-01] MEDS: FAMOTIDINE 20 MG TAB PO SCH (07:41)
[2022-11-01] MEDS: DOXYCYCLINE HYCLATE 100 MG CAP PO SCH (07:41)
[2022-11-01] MEDS: METOPROLOL SUCC 25MG EXT REL TAB PO SCH (07:42)
[2022-11-01] MEDS: oxyCODONE HCL IR 5 MG TAB (IMMEDIATE RELEASE) PO PRN (07:49)
[2022-11-01] MEDS: INSULIN ASPART PER UNIT CHARGE SC SCH (08:07)
[2022-11-01] MEDS ORDERED: LANTUS PER UNIT CHARGE SC SCH ×2 (09:00)
--- NOTE | 2022-11-05 08:05 | Discharge Summary ---
Date of Service November 05, 2022 Admission HPI Per Admitting Provider This is a 57-year-old male presents with chronic persistent back and leg pain after failing course of nonoperative care is here for surgical invention. Admission Exam (Per Admitting) Constitutional WD/WN, vitals as above Eyes normal visual robb by confrontation ENMT external ear and nose normal, oropharynx normal Neck normal visual inspection Respiratory normal respiratory effort Cardiovascular Extremities: normal capillary refill Gastrointestinal (Abdomen) Inspection/Auscultation: abdomen normal to inspection Musculoskeletal Spine: + limited thoraco-lumbar ROM and + lumbar spinal tenderness Extremities: extremities normal to inspection and strength 5/5 throughout Skin no rashes, warm and dry Neurologic normal touch/pain/proprioception and moves all extremities Psychiatric A+Ox3, euthymic affect Eye Contact: good eye contact Discharge Data Consultations 10/29/22 15:04 Consult Hospitalist Routine Procedures Performed Operation Date: 10/29/22 10:35 Actual Procedures p L2-L3 Decompression and Fusion; Application of Bone Morphogenetic Protein, IFactor Bone Graft and Stimulan Antibiotic Beads, Spinal Cord Monitoring(Not Applicable) - Mynor Purcell, Hospital Course (1) Back pain: Kareem was discharged home on POD #3 s/p HWR L3-S1, decompression L2-3, PSF L2- S1. He had an uneventful hospital course. Lab values were stable. He made progress daily and physical therapy. Pain was controlled. He was discharged home on oral doxycycline as he has had a right shoulder and lumbar abscess infection earlier this year. Check in February showed normal Discharge Instructions ACTIVITY RECOMMENDATIONS: SELF CARE INSTRUCTIONS AFTER THORACIC/LUMBAR FUSIONS 1. You may walk to your tolerance. It is good exercise for your legs and back. Expect some back and intermittent leg aches and pains. 2. You may perform "counter-top" level activities (make a sandwich, maricel with a project, etc.). 3. No bending or lifting of more than 10 pounds or back twisting of any nature (roll like a log when turning in bed). 4. You may ride in a car for 20-30 minutes at a time. No driving until after your first visit with your doctor. 5. Frequent changes of position and restricting sitting to 30 minutes at a time will help limit the amount of back spasms and stiffness you may experience. 6. You may discontinue the use of ambulatory aids (cane, crutches, etc.) once your strength and confidence allow. 7. You may pig casting machine operator the shower and let water strike your incision when you arrive home at least once daily. Do not take a tub bath, sit in a hot tub or go into a swimming pool until after your first recheck in the office. SPECIAL CARE INSTRUCTIONS: VERY IMPORTANT TO READ AND REVIEW A. Your surgical incision has been closed with a cosmetic suture under the skin that will dissolve in about 6 weeks. In 14 days, you can use a pair of clean scissors and cut the suture that is left outside of the skin at the ends of your incision. 1. The small skin tapes can be removed 7 days after surgery if they have not fallen off by that point. 2. You may keep the wound open to air as much as possible to promote healing after post-op day number 5 unless told otherwise by your doctor. 3. If you think the wound looks like it is becoming infected (redness or worsening drainage) and/or you are experiencing fever, chill or worsening back pain and muscle spasms, contact the office so that we may evaluate you as soon as possible. B. Complications are uncommon, but please contact us if you have any signs or symptoms of: 1. wound infection (fever higher than 102.5 degrees F, redness, separation of wound, drainage, or increasing pain from the incision) 2. blood clots in legs (pain, swelling, redness and warmth in legs) 3. urinary tract infection (fever higher than 102.5 degrees F, burning upon urination or increased frequency of urination) 4. nerve problems (inability to walk on your toes or heels, numbness, loss of bowel or bladder control) 5. any other symptoms that concern you C. Please call the office at if you have any concerns or questions about your operation or recovery. D. No smoking! Smoking drastically decreases the chance of a solid fusion. E. Do not take any anti-inflammatory medications (Indocin, Advil, Motrin, Aspirin, Naprosyn, etc.) as these may inhibit the chance of a solid fusion. Tylenol is okay to take for pain. MANAGING PAIN AFTER SPINAL SURGERY 1. Narcotic medication is intended for short-term use and will be provided for surgical pain. Surgical pain usually lasts for a period of 4-6 weeks. Narcotic medication includes Percocet, Vicodin, Darvocet, Tylenol #3 or Lortab. 2. Longer-term pain is more appropriately treated with non-narcotic medication such as Tylenol ES. 3. Muscle spasm is not appropriately treated with narcotics. Muscle relaxers such as Soma, Flexeril or Skelaxin can be used along with Tylenol ES. 4. Remember that we all live with some "aches and pains". This is not unusual or uncommon after an injury or as we get older. a. Back pain is expected and may include muscle spasms for 4 to 6 weeks after surgery. The pain should gradually improve. If the pain worsens for no apparent reason, please contact the office. b. Intermittent leg pain may also be experienced and should not be concerned about unless it worsens for no apparent reason. If so, please contact the office. 5. We will provide appropriate medication within the normal guidelines of their prescribed use. We will also be very cautious and aware of potential abuse and extended duration of patients' medication needs. a. Pain medications are for your comfort and to assist with sleep and rest so that the tissue can heal. They are not provided in order to return to normal activity and should not be used through the day. To do so or worsening pain at night can result from ongoing tissue damage and development of tolerance to the prescribed medicine. 6. Please allow 2-3 days to process refills. Prescriptions will not be mailed but must be picked up at the office. FOLLOW UP VISIT: Keep your scheduled follow-up appointment. Any questions, please call the office at .
== END 2022-11-01 12:24 | disposition home or self-care (01) | DRG 454 ==
LOC: ASU 08:54 → 3E 13:51

== ENCOUNTER 2023-01-10 20:11 | Inpatient (IN) ==
[2023-01-10] MEDS ORDERED: SODIUM CHLORIDE 0.9% 1,000 ML IV ONE (21:12)
[2023-01-10] MEDS ORDERED: ACETAMINOPHEN 1,000 MG/100 ML VIAL IV STA (22:07)
[2023-01-10 22:14] LABS: Basophils # (auto) 0.08 K/uL (0.00-0.20); Basophils % (auto) 0.8 %; Eosinophils # (auto) 0.41 K/uL (0.00-0.50); Hematocrit (blood only) 31.7 % (42.0-52.0); Hemoglobin 10.6 g/dl (14.0-18.0); Immature Granulocytes # (auto) 0.03 K/uL (0.01-0.20); Immature Granulocytes % (auto) 0.3 %; Lymphocytes # (auto) 2.21 K/uL (1.20-3.40); Lymphocytes % (auto) 21.3 %; Mean Corpuscular Hemoglobin 30.3 pg (25.0-34.0); Mean Corpuscular Hgb Conc 33.4 g/dL (32.0-36.0); Mean Corpuscular Volume 90.6 fL (80.0-100.0); Monocytes # (auto) 0.83 K/uL (0.11-0.59); Neutrophils % (auto) 65.6 %; Platelet Count 267 K/uL (130-400); RDW Coefficient of Variation 13.5 % (11.5-14.5); RDW Standard Deviation 44.6 fL (36.4-46.3); White Blood Count 10.36 K/ul (4.8-10.8)
--- NOTE | 2023-01-10 22:15 | Emergency Department Note ---
Impression & Plan CVA (cerebral vascular accident), Chronic back pain, CAD (coronary artery disease), Intermittent confusion ED Provider Note NAME: LISA JURADO AGE: 57 SEX: M ARRIVES VIA: Walk-In INFORMANT: Patient ED PROVIDER(S): Los Marti MD CHIEF COMPLAINT: Pain, weakness, confusion PLAN: Disposition: Admit MEDICAL DECISION MAKING: The patient is a pleasant 57-year-old gentleman with a complicated past medical history of chronic back pain with history of multiple back surgeries recently complicated by infection and MSSA bacteremia for which he completed prolonged course of IV antibiotics and continues on oral doxycycline per his infectious disease, Dr. Rachel per records, history of CAD s/p PI, type 2 diabetes, hypertension, hyperlipidemia, SIDDHARTHA, noncardiac chest pain who presents emergency department via walk-in accompanied by his for evaluation of numerous complaints including ongoing back pain of his neck, upper and lower back, he describes pain between his shoulder blades which she correlates with history of needing a stent but acknowledges he also has ongoing back pain, imbalance when walking over the past couple of months but worsening over the past week or so and 2 episodes of confusion which resolved spontaneously with the first 2 days ago and the second tonight where he felt disoriented and unsure where he was. The patient has been going to his [place] camp this week and it seems he has been able to at least perform his typical activities they are walking in [place] but still reports he is feeling unsteady. He denies any fevers, cough, congestion, GI or symptoms. He reports he is eating and drinking. He denies any regular alcohol use. He denies any marijuana use. He denies drug use otherwise. On my evaluation the patient is fatigued. But no acute distress, afebrile stable vital signs. He appears clinically dry. He has no focal neurologic deficits. He has discomfort of the cervical, thoracic and lumbar paraspinal muscles without midline tenderness palpation or step-offs. There is no discoloration of the back including his prior incision site which is well- appearing and healed. EKG without overt acute ischemia. Chest x-ray negative for acute cardiopulmonary process per my personal preliminary review/interpretation. WBC and platelets within normal limits. H/H similar to prior. Chemistry without metabolic acidosis. Electrolytes and LFTs without significant abnormality. High-sensitivity troponin is 3.6, within normal limits. Lipase not elevated. Medical alcohol was undetectable. ESR is normal at 19 and CRP is marginally above normal at 1.39, nonspecific. Lyme screen was negative. Anaplasma Babesia smear were negative. DNA testing is being sent out and will be pending. Drug screen was positive for amphetamine and MDMA with reflex drug screen pending to clarify whether represents cross-reactivity. CT of the CT L-spine negative for acute abnormalities. Note is made of lucencies at S1 which may suggest screw loosening. CT of the head without contrast demonstrates wedge-shaped region consistent with ischemia and CTA of the head and neck without large vessel occlusion. Findings reviewed with the patient at the bedside. He does agree with plan for admission for further evaluation of subacute stroke. Case was discussed with Dr. Lemons, [facility] hospitalist, who will evaluate the patient for admission. Case was discussed with neurology on-call: Dr. Gupta, [facility] neurology who was able to review the patient's images. Appreciate consultation and recommendations. Area of infarct does appear subacute/at least 2 days old and so no role for Plavix at this time. Recommend aspirin load and subsequent daily baby aspirin. Continue the patient's statin. Follow-up with MRI of the brain to further characterize timing of infarct. Additionally can update the patient's echo if has not had one recently. Monitor on telemetry. Follow-up reflex drug screen for amphetamine and MDMA. Admitting team updated. Triage Nursing notes reviewed and agree them. Prior/external medical records reviewed including 10/29/2022 hospitalist consultation describing the patient's infectious disease history of MSSA bacteremia and recent hospital discharge summary from 12/02/2022 describing the patient's cardiac history. Vital Signs: reviewed Differential diagnosis: Infection, dehydration, metabolic abnormality, hypo/hyperglycemia, electrolyte disturbance, anemia, hypoxia, cardiac sources, intracerebral event, toxicologic, neurologic, as well as other pathologies. ER treatment provided: See below. Diagnostics interpreted by me: ECG: Normal sinus rhythm, 72 bpm, no ectopy, no overt ST elevation or depression, QTc 453, QRS 90. Cardiac Monitoring: An order for continuous cardiac monitoring was placed and demonstrated Normal sinus rhythm, 72 bpm, no ectopy. Laboratory studies: See below Imaging studies: See below Consultation(s): Neurology on-call: Dr. Gupta [facility] neurology. HPI: The patient is a pleasant 57-year-old gentleman with a complicated past medical history of chronic back pain with history of multiple back surgeries recently complicated by infection and MSSA bacteremia for which he completed prolonged course of IV antibiotics and continues on oral doxycycline per his infectious disease, Dr. Rachel per records, history of CAD s/p PI, type 2 diabetes, hypertension, hyperlipidemia, SIDDHARTHA, noncardiac chest pain who presents emergency department via walk-in accompanied by his for evaluation of numerous complaints including ongoing back pain of his neck, upper and lower back, he describes pain between his shoulder blades which she correlates with history of needing a stent but acknowledges he also has ongoing back pain, imbalance when walking over the past couple of months but worsening over the past week or so and 2 episodes of confusion which resolved spontaneously with the first 2 days ago and the second tonight where he felt disoriented and unsure where he was. The patient has been going to his hunting camp this week and it seems he has been able to at least perform his typical activities they are walking [place] but still reports he is feeling unsteady. He denies any fevers, cough, congestion, GI or symptoms. He reports he is eating and drinking. He denies any regular alcohol use. He denies any marijuana use. He denies drug use otherwise. ROS: See above HPI for pertinent positives & negatives. A total of 10 systems reviewed and were otherwise negative. VITALS:See Below PHYSICAL EXAMINATION: GENERAL: Awake, alert, fatigued-appearing, in no distress HENT: Normocephalic, atraumatic. Oropharynx with dry mucous membranes and otherwise unremarkable. EYES: Normal conjunctiva. Sclera non-icteric. EOMI. No nystamgus. PEARRL. NECK: Supple. No nuchal rigidity. FROM. No JVD. RESPIRATORY: Clear to auscultation. CARDIAC: Regular rate, normal rhythm. Extremities warm and well perfused. Pulses equal. ABDOMEN: Soft, non-distended. No tenderness to palpation. No rebound or guarding. No masses. RECTAL: Deferred. MUSCULOSKELETAL: Chest examination reveals no tenderness. The back is symmetrical on inspection without obvious abnormality. Discomfort of the cervical, thoracic and lumbar paraspinal muscles without midline tenderness palpation or step-offs. There is no discoloration of the back including his prior incision site which is well-appearing and healed. There is no CVA tenderness to palpation. No joint edema. LOWER EXTREMITIES: Calves are equal size bilaterally and non-tender. No edema. No discoloration. NEURO: No focal sensory or motor deficits noted. 5/5 strength and SILT x 4 extremities. Cerebellar function intact including [id number], alternating palms, [id number]. SKIN: No rash or jaundice noted. Los Marti MD Past Med/Surg History Medical History (Updated 01/11/23 @ 04:30 by Los Marti MD) MSSA bacteremia History of pulmonary embolism 1990s Depression Degenerative disc disease s/p cervical fusion Diabetes mellitus, type 2 NIDDM SIDDHARTHA (obstructive sleep apnea) resolved per pt CAD (coronary artery disease) 2007 x 2 stents (LAD, Diagonal) 2012 (PADMINI D1) cardiac stents x3 total (most recent stent 2011) No recent issues GERD (gastroesophageal reflux disease) controlled, stable per pt Myocardial Infarction 2012 > stents Hypertension Hyperlipidemia Surgical History History of reverse total replacement of right shoulder joint Right reverse total shoulder replacement (10/08/21): Glidescope#3, ETT 7.5 + PNB at [facility]. *Difficult airway* per anesthesia record comments. No issues noted per post-op anesthesia progress note. Difficult intubation Right reverse total shoulder replacement (10/08/21): Glidescope#3, ETT 7.5 + PNB at [facility]. *Difficult airway* per anesthesia record comments. No issues noted per post-op anesthesia progress note. History of lumbar fusion 10/04/2020: elective glidescope 3. ETT 8.0. 04/2022 L2-L4 DF with complications d/t infection History of tooth extraction History of repair of rotator cuff right S/P arthroscopy of right shoulder 03/18/19. 02/29/20. LMA#5. History of hip surgery right hip (as a child) History of total knee replacement right knee History of colonoscopy History of esophageal dilatation History of esophagogastroduodenoscopy (EGD) Fusion of spine ACDF C6-C7, C5 corpectomy: 08/08/10: MAC#4, ETT 7.5 at [facility] History of cardiac cath 2007 x 2 stents (LAD, Diagonal) 2011 (PADMINI D1) Family History Father Family history of diabetes mellitus Other No family history of adverse response to anesthesia Social History Smoking Status: Current some day smoker Tobacco Type: Cigarettes Age Started Using Tobacco: 19; Age Quit Using Tobacco: 56; Second Hand Exposure: No; Do You Dip or Chew Tobacco: No; Hx Alcohol Use: Yes Alcohol type: beer Hx Substance Use: No Preferred Language: Moldovan Communication Ability: Effective Hearing Ability: Normal Orthotist/Prosthetist Required: No Beliefs That Will Affect Care: None marital status: Current Living Situation: Spouse Feels Safe at Home: Yes Diet: ideal protein caffeine: Yes during the past year weight has: decreased > 10 lbs Assistive Devices: Cane, Raised Toilet Seat, Walker and Wheelchair Allergies Allergies Allergy/AdvReac Type Severity Reaction Status Date / Time shellfish derived Allergy Severe Throat Verified 01/10/23 22:03 swelling tramadol Allergy Intermediate Hives, Verified 01/10/23 22:03 dizziness, nausea Home Meds Home Medications Medication Instructions Recorded Confirmed amitriptyline 100 mg tablet 100 mg PO HS 02/16/19 01/10/23 atorvastatin 80 mg tablet (Lipitor) 80 mg PO HS 02/16/19 01/10/23 famotidine 20 mg tablet (Pepcid) 20 mg PO BID 02/16/19 01/10/23 metoprolol succinate 25 mg 25 mg PO QAM 02/23/19 01/10/23 tablet,extended release 24 hr (Toprol XL) metformin 1,000 mg tablet 1,000 mg PO BID 02/29/20 01/10/23 melatonin 10 mg tablet 10 mg PO HS 09/07/21 01/10/23 paroxetine HCl 30 mg tablet (Paxil) 30 mg PO QAM 04/05/22 01/10/23 doxycycline monohydrate 100 mg 100 mg PO BID 10/15/22 01/10/23 capsule gabapentin 300 mg capsule 300 mg PO BID 10/15/22 01/10/23 losartan 100 mg tablet 100 mg PO QAM 10/15/22 01/10/23 oxycodone 5 mg tablet 5 mg PO Q6 PRN Pain 12/02/22 01/10/23 Previous Rx's Medication Instructions Recorded cyclobenzaprine 10 mg tablet 10 mg PO TID PRN muscle spasm #15 05/25/22 tabs Results & Data (ED) Vital Signs Vital Signs - 24 hr 01/10/23 20:17 01/10/23 21:00 01/10/23 21:42 Temperature 36.2 C L Temperature Source Temporal Artery Scan Pulse Rate 74 74 Pulse Rate [Finger] Pulse Rhythm [Finger] Pulse Strength [Finger] Respiratory Rate 20 Respiratory Effort / Characteristics Non-Labored Respiratory Depth Normal Respiratory Pattern Blood Pressure 145/72 H Blood Pressure [Right Arm] Blood Pressure Mean 96 Blood Pressure Mean [Right Arm] Blood Pressure Position [Right Arm] Pulse Oximetry 99 Oxygen Delivery Method Room Air Room Air Sepsis Recent Fever Within 48 Hours No Sepsis New/Unexplained Change in Mental Status No Sepsis Action Taken by Nursing No Action Required 01/10/23 22:00 01/10/23 22:00 01/11/23 00:00 Temperature Temperature Source Pulse Rate Pulse Rate [Finger] 80 85 Pulse Rhythm [Finger] Regular Regular Pulse Strength [Finger] Normal Normal Respiratory Rate 20 18 Respiratory Effort / Characteristics Non-Labored Spontaneous Non-Labored Spontaneous Respiratory Depth Normal Normal Respiratory Pattern Regular Blood Pressure Blood Pressure [Right Arm] 132/76 145/61 H Blood Pressure Mean Blood Pressure Mean [Right Arm] 94 89 Blood Pressure Position [Right Arm] Lying Pulse Oximetry 98 98 98 Oxygen Delivery Method Room Air Room Air Room Air Sepsis Recent Fever Within 48 Hours Sepsis New/Unexplained Change in Mental Status Sepsis Action Taken by Nursing 01/11/23 03:00 Temperature Temperature Source Pulse Rate Pulse Rate [Finger] 68 Pulse Rhythm [Finger] Pulse Strength [Finger] Respiratory Rate 14 Respiratory Effort / Characteristics Non-Labored Spontaneous Respiratory Depth Normal Respiratory Pattern Blood Pressure Blood Pressure [Right Arm] 144/91 H Blood Pressure Mean Blood Pressure Mean [Right Arm] 108 Blood Pressure Position [Right Arm] Pulse Oximetry 97 Oxygen Delivery Method Room Air Sepsis Recent Fever Within 48 Hours Sepsis New/Unexplained Change in Mental Status Sepsis Action Taken by Nursing Laboratory Data Attestation: I reviewed the patient's lab results. 01/10/23 21:40 01/10/23 21:40 Lab Results 01/10/23 01/11/23 Range/Units 21:40 00:45 WBC 10.36 (4.8-10.8) K/ul RBC 3.50 L (4.70-6.10) M/uL Hgb 10.6 L (14.0-18.0) g/dl Hct 31.7 L (42.0-52.0) % MCV 90.6 (80.0-100.0) fL MCH 30.3 (25.0-34.0) pg MCHC 33.4 (32.0-36.0) g/dL RDW Std Deviation 44.6 (36.4-46.3) fL RDW Coeff of Padmini 13.5 (11.5-14.5) % Plt Count 267 (130-400) K/uL MPV 11.0 (9.4-12.4) fL Immature Gran % (Auto) 0.3 % Neut % (Auto) 65.6 % Lymph % (Auto) 21.3 % [place] % (Auto) 8.0 % Eos % (Auto) 4.0 % Baso % (Auto) 0.8 % Neut # (Auto) 6.80 H (1.40-6.50) K/uL Lymph # (Auto) 2.21 (1.20-3.40) K/uL [place] # (Auto) 0.83 H (0.11-0.59) K/uL Eos # (Auto) 0.41 (0.00-0.50) K/uL Baso # (Auto) 0.08 (0.00-0.20) K/uL Immature Gran # (Auto) 0.03 (0.01-0.20) K/uL ESR 19 (0-20) mm/hr PT 11.4 (9.0-12.0) Seconds INR 1.0 (0.9-1.1) APTT 27.6 (21.0-31.0) Seconds PTT Ratio 1.0 Sodium 136 (136-145) mmol/L Potassium 4.0 (3.5-5.1) mmol/L Chloride 106 (98-107) mmol/L Carbon Dioxide 25 (21-32) mmol/L Anion Gap 5 (3-11) BUN 20 (6-23) mg/dl Creatinine 1.05 (0.6-1.4) mg/dl Est Cr Clr Drug Dosing Not Reportable Est GFR ( Amer) 90.9 ml/min Est GFR (Non-Af Amer) 78.4 ml/min BUN/Creatinine Ratio 19.0 (10-20) Glucose 95 (70-99(Fasting)) mg/dl Calcium 8.9 (8.6-10.3) mg/dl Phosphorus 3.4 (2.5-4.9) mg/dl Magnesium 1.8 (1.7-2.4) mg/dl Total Bilirubin 0.3 (0.2-1.0) mg/dl AST 23 (13-39) U/L ALT 21 (7-52) U/L Alkaline Phosphatase 133 H (34-104) U/L Troponin I High Sens 3.6 (0-20) pg/ml C-Reactive Protein 1.39 H (0-0.5) mg/dl Total Protein 6.2 (6.0-8.3) gm/dl Albumin 3.7 (3.4-5.0) gm/dl Globulin 2.5 (2.5-4.0) gm/dl Albumin/Globulin Ratio 1.5 (0.9-2) Lipase 29 (11-82) U/L Urine Opiates Screen Neg (Neg) Ur Methadone, Qual Neg (Neg) Urine Barbiturates Neg (Neg) Ur Phencyclidine (PCP) Neg (Neg) U Amphetamin/Meth Scrn Pos H (Neg) MDMA (Ecstasy) Screen Pos H (Neg) U Benzodiazepines Scrn Neg (Neg) Ur Cocaine Metabolite Neg (Neg) U Marijuana (THC) Screen Neg (Neg) Ethyl Alcohol mg/dL < 10.0 (<10.0) mg/dl Anaplasma Smear See Comment Babesia Smear See Comment Lyme Disease IgG Ab Negative (Negative) Lyme Disease IgM Ab Negative (Negative) Administered Medications Discontinued Medications Diphenhydramine HCl (Diphenhydramine 50 Mg/Ml Vial) 25 mg IV NOW STA Stop: 01/11/23 03:23 Last Admin: 01/11/23 03:32 Dose: 25 mg Documented By: ATUL Sodium Chloride (Nss) 1,000 mls @ 999 mls/hr IV .Q1H1M ONE Stop: 01/10/23 22:12 Last Infusion: 01/11/23 00:56 Dose: Infused Documented By: Admin: 01/10/23 22:59 Dose: 999 mls/hr Documented By: YIFAN Acetaminophen (Ofirmev) 1,000 mg in 100 mls @ 400 mls/hr IV NOW STA Stop: 01/10/23 22:21 Last Infusion: 01/10/23 23:54 Dose: Infused Documented By: Admin: 01/10/23 22:59 Dose: 400 mls/hr Documented By: YIFAN Ioversol (Optiray 320 500ml) 119 ml IV ONCE ONE Stop: 01/11/23 00:41 Last Admin: 01/11/23 00:40 Dose: 119 ml Documented By: ANGELINA Methylprednisolone (Methylprednisolone 125 Mg/2 Ml Vial) 125 mg IV NOW STA Stop: 01/11/23 03:23 Last Admin: 01/11/23 03:32 Dose: 125 mg Documented By: ATUL Imaging Data Radiologist's Impression: Cervical Spine CT 01/10/23 22:11 Exam(s): CT C SPINE EXAM: CT Cervical Spine Without Intravenous Contrast CLINICAL HISTORY: confusion, pain. TECHNIQUE: Axial computed tomography images of the cervical spine without intravenous contrast. Automated exposure control was utilized for the study. A dose lowering technique was utilized adhering to the principles of ALARA. COMPARISON: No relevant prior studies available. FINDINGS: Vertebrae: The vertebral bodies are intact without acute osseous traumatic injury. No anterolisthesis or retrolisthesis is identified. The facet joints are well aligned without subluxation or dislocation. The pedicles, transverse processes and spinous processes are intact. Discs/spinal canal/neural foramina: There is anterior fusion from C4- C7. Asymmetric prominent disc space narrowing with marginal hypertrophic changes noted at C3-C4 and C7-T1. Soft tissues: Unremarkable. IMPRESSION: No acute osseous traumatic injury or significant abnormal alignment involving the cervical spine. Incidental postsurgical changes. Electronically signed by: Kory Sanchez MD 01/11/23 02:[address] 01/10/23 22:11 CR Exam(s): CT HEAD Without Contrast EXAM: CT Head Without Intravenous Contrast CLINICAL HISTORY: confusion, pain. TECHNIQUE: Axial computed tomography images of the head/brain without intravenous contrast. CTDI is 37.22 mGy and DLP is 4423.11 mGy-cm. Automated exposure control was utilized for the study. A dose lowering technique was utilized adhering to the principles of ALARA. COMPARISON: CTA head performed the 2357 hrs. FINDINGS: Brain: There is a developing wedge-shaped area of loss of the [place]- white matter differentiation involving the right lateral frontal region, concerning for developing ischemia. No intracranial hemorrhage. No significant mass effect. The parenchyma is otherwise unremarkable. Ventricles: The ventricles are maintained without effacement. No midline shift or ventriculomegaly. Bones/joints: Unremarkable. No acute fracture. Soft tissues: Unremarkable. Sinuses: Unremarkable as visualized. No acute sinusitis. Mastoid air cells: Unremarkable as visualized. No mastoid effusion. IMPRESSION: There is a developing wedge-shaped area of loss of the hudson-white matter differentiation involving the right lateral frontal region, concerning for developing ischemia. This is new from the previous CTA examination. No intracranial hemorrhage. No significant mass effect. Communications: Verify Receipt Electronically signed by: Kory Sanchez MD 01/11/23 02:39 AM Head CTA 01/10/23 22:11 Exam(s): CTA HEAD With Contrast IV Amt: 119 ml opti 320 EXAM: CT Angiography Head With Intravenous Contrast CLINICAL HISTORY: Reason for exam: confusion, pain. TECHNIQUE: Axial computed tomographic angiography images of the head with intravenous contrast. CTDI is 39.4 mGy and DLP is 4423.11 mGy-cm. Automated exposure control was utilized for the study. A dose lowering technique was utilized adhering to the principles of ALARA. MIP reconstructed images were created and reviewed. CONTRAST: Patient received 119 ml opti 320 of IV contrast COMPARISON: No relevant prior studies available. FINDINGS: The dural venous sinuses are patent. Right internal carotid artery: No acute findings. Intracranial segment is patent with no significant stenosis. No aneurysm. Right anterior cerebral artery: Unremarkable. No occlusion or significant stenosis. No aneurysm. Right middle cerebral artery: Unremarkable. No occlusion or significant stenosis. No aneurysm. Right posterior cerebral artery: Unremarkable. No occlusion or significant stenosis. No aneurysm. Right vertebral artery: Unremarkable as visualized. Left internal carotid artery: No acute findings. Intracranial segment is patent with no significant stenosis. No aneurysm. Left anterior cerebral artery: Unremarkable. No occlusion or significant stenosis. No aneurysm. Left middle cerebral artery: Unremarkable. No occlusion or significant stenosis. No aneurysm. Left posterior cerebral artery: Unremarkable. No occlusion or significant stenosis. No aneurysm. Left vertebral artery: Unremarkable as visualized. Basilar artery: Unremarkable. No occlusion or significant stenosis. No aneurysm. IMPRESSION: Negative CT angiogram of the head. Electronically signed by: Gemma Motley MD 01/11/23 02:[address] 01/10/23 22:11 Exam(s): CT L SPINE EXAM: CT Lumbar Spine Without Intravenous Contrast CLINICAL HISTORY: Reason for exam: confusion, pain. TECHNIQUE: Axial computed tomography images of the lumbar spine without intravenous contrast. CTDI is 39.4 mGy and DLP is 4423.11 mGy-cm. Automated exposure control was utilized for the study. A dose lowering technique was utilized adhering to the principles of ALARA. COMPARISON: Comparison made to prior MRI of the lumbar spine from October 15, 2022.. 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 Vertebrae: Status post posterior decompression at L2-L5 with posterior and interbody fusion with transpedicular screws and connecting rods in place at L2-S1. There are lucencies about the S1 transpedicular screws concerning for loosening. No acute fracture. Discs/spinal canal/neural foramina: No acute findings. No spinal canal stenosis. Soft tissues: There is moderate soft tissue swelling at L1-L5 with a small amount of fluid, which likely represents a postsurgical seroma. IMPRESSION: There is moderate soft tissue swelling in the subcutaneous tissues overlying the operative site with a small amount of fluid, likely representing postsurgical seroma. There are lucencies about the S1 transpedicular screws concerning for loosening. Electronically signed by: Gemma Motley MD 01/11/23 02:04 AM Neck CTA 01/10/23 22:11 Exam(s): CTA NECK With Contrast IV Amt: 119 ml opti 320 EXAM: CT Angiography Neck With Intravenous Contrast CLINICAL HISTORY: Reason for exam: confusion, pain. TECHNIQUE: Routine carotid CT angiography protocol was performed with intravenous contrast. NASCET criteria using the distal ICAs for comparison were used for evaluation of stenoses. CTDI is 39.4 mGy and DLP is 4423.11 mGy-cm. Automated exposure control was utilized for the study. A dose lowering technique was utilized adhering to the principles of ALARA. MIP reconstructed images were created and reviewed. CONTRAST: Patient received 119 ml opti 320 of IV contrast COMPARISON: None. FINDINGS: VASCULATURE: Right common carotid artery: Unremarkable. No occlusion or significant stenosis. No dissection. Right internal carotid artery: Unremarkable. Extracranial segment is patent with no occlusion or significant stenosis. No dissection. Right external carotid artery: Unremarkable. No occlusion. Right vertebral artery: Unremarkable. No occlusion or significant stenosis. No dissection. Left common carotid artery: Unremarkable. No occlusion or significant stenosis. No dissection. Left internal carotid artery: Unremarkable. Extracranial segment is patent with no occlusion or significant stenosis. No dissection. Left external carotid artery: Unremarkable. No occlusion. Left vertebral artery: Unremarkable. No occlusion or significant stenosis. No dissection. NECK: Bones/joints: Status post corpectomy with anterior fusion of C4-C7 with expected postsurgical changes. Advanced disc degeneration at C3-4 with moderate spinal canal stenosis. Soft tissues: Prominent mediastinal lymph nodes. Prominent cervical lymph nodes. Lung apices: Findings concerning for bronchitis, which may be of infectious or inflammatory etiologies. CAROTID STENOSIS REFERENCE USING NASCET CRITERIA: % ICA stenosis = (1 - narrowest ICA diameter/diameter of distal cervical ICA) x 100. Mild - <50% stenosis. Moderate - 50-69% stenosis. Severe - 70-94% stenosis. Near occlusion - 95-99% stenosis. Occluded - 100% stenosis. IMPRESSION: Negative CTA neck. Electronically signed by: Gemma Motley MD 01/11/23 02:[address] 01/10/23 22:11 Exam(s): CT T SPINE EXAM: CT Thoracic Spine Without Intravenous Contrast CLINICAL HISTORY: Reason for exam: confusion, pain. TECHNIQUE: Axial computed tomography images of the thoracic spine without intravenous contrast. Automated exposure control was utilized for the study. A dose lowering technique was utilized adhering to the principles of ALARA. COMPARISON: Comparison made to prior MRI of the thoracic spine from October 15, 2022. FINDINGS: Vertebrae: Remote fracture deformities of the T10 and T11 vertebral bodies. Mild wedging of T12 which is likely physiologic. No acute fracture. Anterior fusion of the cervical spine. Discs/spinal canal/neural foramina: No acute findings. Critical spinal canal stenosis at T9-10 and severe stenosis at T8-9. Soft tissues: Unremarkable. IMPRESSION: No evidence of acute thoracic spine pathology. Electronically signed by: Gemma Motley MD 01/11/23 02:15 AM Discharge Plan Visit Data Chief Complaint: Cardiac Assessment Stated Complaint: CHEST PAIN, NECK-ARM PAIN, SOB ED Provider: [facility] Discharge Problem: CVA (cerebral vascular accident), Chronic back pain, CAD (coronary artery disease), Intermittent confusion Forms Stand Alone Forms: [employer] Prescriptions Prescriptions: No Action atorvastatin [Lipitor] 80 mg Tablet 80 mg PO HS famotidine [Pepcid] 20 mg Tablet 20 mg PO BID amitriptyline 100 mg Tablet 100 mg PO HS metoprolol succinate [Toprol XL] 25 mg Tablet Extended Release 24 Hr 25 mg PO QAM metformin 1,000 mg Tablet 1,000 mg PO BID cyclobenzaprine 10 mg Tablet 10 mg PO TID PRN (Reason: muscle spasm) Qty: 15 0RF doxycycline monohydrate 100 mg capsule 100 mg PO BID gabapentin 300 mg capsule 300 mg PO BID losartan 100 mg tablet 100 mg PO QAM oxycodone 5 mg tablet 5 mg PO Q6 PRN (Reason: Pain) melatonin 10 mg Tablet 10 mg PO HS paroxetine HCl [Paxil] 30 mg Tablet 30 mg PO QAM Referrals Referrals: Roberto Esposito [Primary Care Provider] - Discharge Problem: CVA (cerebral vascular accident) Qualifiers: CVA mechanism: unspecified Qualified Code(s): I63.9 - Cerebral infarction, unspecified Chronic back pain Qualifiers: Back pain location: back pain in unspecified location Back pain laterality: u nspecified Qualified Code(s): M54.9 - Dorsalgia, unspecified CAD (coronary artery disease) Qualifiers: Coronary Disease-Associated Artery/Lesion type: unspecified vessel or lesion type
[2023-01-10 22:16] LABS: Alanine Aminotransferase 21 U/L (7-52); Albumin Globulin Ratio 1.5 (0.9-2); Albumin Level 3.7 gm/dl (3.4-5.0); Alkaline Phosphatase 133 U/L (34-104); Anion Gap 5 (3-11); Aspartate Aminotransferase 23 U/L (13-39); Bilirubin,Total 0.3 mg/dl (0.2-1.0); Blood Urea Nitrogen 20 mg/dl (6-23); Calcium 8.9 mg/dl (8.6-10.3); Carbon Dioxide 25 mmol/L (21-32); Chloride 106 mmol/L (98-107); Est GFR (African American) 90.9 ml/min; Est GFR (Non-African American) 78.4 ml/min; Globulin 2.5 gm/dl (2.5-4.0); Glucose 95 mg/dl (70-99(Fasting)); Lipase 29 U/L (11-82); Magnesium 1.8 mg/dl (1.7-2.4); Phosphorus 3.4 mg/dl (2.5-4.9); Sodium 136 mmol/L (136-145); Total Protein 6.2 gm/dl (6.0-8.3)
[2023-01-10 22:22] LABS: Troponin I High Sensitivity 3.6 pg/ml (0-20)
[2023-01-10 22:32] LABS: Partial Thromboplastin Time 27.6 Seconds (21.0-31.0); Prothrombin Time 11.4 Seconds (9.0-12.0)
[2023-01-10 23:01] LABS: Lyme Ab IgG w/WB Rflx Negative (Negative); Lyme Ab IgM w/WB Rflx Negative (Negative)
[2023-01-11] MEDS ORDERED: OPTIRAY 320 500ml IV ONE (00:40)
[2023-01-11 01:35] LABS: Amphetamines+Metham, Urine Pos (Neg); Barbiturates, Urine Neg (Neg); Benzodiazepine, Urine Neg (Neg); Cocaine, Urine Neg (Neg); MDMA (Ecstacy), Urine Pos (Neg); Methadone, Urine Neg (Neg); Opiate, Urine Neg (Neg); Phencyclidine, Urine Neg (Neg)
--- NOTE | 2023-01-11 02:05 | CT Scan Report ---
Exam(s): CT L SPINE EXAM: CT Lumbar Spine Without Intravenous Contrast CLINICAL HISTORY: Reason for exam: confusion, pain. TECHNIQUE: Axial computed tomography images of the lumbar spine without intravenous contrast. CTDI is 39.4 mGy and DLP is 4423.11 mGy-cm. Automated exposure control was utilized for the study. A dose lowering technique was utilized adhering to the principles of ALARA. COMPARISON: Comparison made to prior MRI of the lumbar spine from October 15, 2022.. 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 Vertebrae: Status post posterior decompression at L2-L5 with posterior and interbody fusion with transpedicular screws and connecting rods in place at L2-S1. There are lucencies about the S1 transpedicular screws concerning for loosening. No acute fracture. Discs/spinal canal/neural foramina: No acute findings. No spinal canal stenosis. Soft tissues: There is moderate soft tissue swelling at L1-L5 with a small amount of fluid, which likely represents a postsurgical seroma. IMPRESSION: There is moderate soft tissue swelling in the subcutaneous tissues overlying the operative site with a small amount of fluid, likely representing postsurgical seroma. There are lucencies about the S1 transpedicular screws concerning for loosening. Electronically signed by: Gemma Motley MD 01/11/23 02:04 AM
--- NOTE | 2023-01-11 02:08 | CT Scan Report ---
Exam(s): CTA HEAD With Contrast IV Amt: 119 ml opti 320 EXAM: CT Angiography Head With Intravenous Contrast CLINICAL HISTORY: Reason for exam: confusion, pain. TECHNIQUE: Axial computed tomographic angiography images of the head with intravenous contrast. CTDI is 39.4 mGy and DLP is 4423.11 mGy-cm. Automated exposure control was utilized for the study. A dose lowering technique was utilized adhering to the principles of ALARA. MIP reconstructed images were created and reviewed. CONTRAST: Patient received 119 ml opti 320 of IV contrast COMPARISON: No relevant prior studies available. FINDINGS: The dural venous sinuses are patent. Right internal carotid artery: No acute findings. Intracranial segment is patent with no significant stenosis. No aneurysm. Right anterior cerebral artery: Unremarkable. No occlusion or significant stenosis. No aneurysm. Right middle cerebral artery: Unremarkable. No occlusion or significant stenosis. No aneurysm. Right posterior cerebral artery: Unremarkable. No occlusion or significant stenosis. No aneurysm. Right vertebral artery: Unremarkable as visualized. Left internal carotid artery: No acute findings. Intracranial segment is patent with no significant stenosis. No aneurysm. Left anterior cerebral artery: Unremarkable. No occlusion or significant stenosis. No aneurysm. Left middle cerebral artery: Unremarkable. No occlusion or significant stenosis. No aneurysm. Left posterior cerebral artery: Unremarkable. No occlusion or significant stenosis. No aneurysm. Left vertebral artery: Unremarkable as visualized. Basilar artery: Unremarkable. No occlusion or significant stenosis. No aneurysm. IMPRESSION: Negative CT angiogram of the head. Electronically signed by: Gemma Motley MD 01/11/23 02:07 AM
--- NOTE | 2023-01-11 02:11 | CT Scan Report ---
Exam(s): CTA NECK With Contrast IV Amt: 119 ml opti 320 EXAM: CT Angiography Neck With Intravenous Contrast CLINICAL HISTORY: Reason for exam: confusion, pain. TECHNIQUE: Routine carotid CT angiography protocol was performed with intravenous contrast. NASCET criteria using the distal ICAs for comparison were used for evaluation of stenoses. CTDI is 39.4 mGy and DLP is 4423.11 mGy-cm. Automated exposure control was utilized for the study. A dose lowering technique was utilized adhering to the principles of ALARA. MIP reconstructed images were created and reviewed. CONTRAST: Patient received 119 ml opti 320 of IV contrast COMPARISON: None. FINDINGS: VASCULATURE: Right common carotid artery: Unremarkable. No occlusion or significant stenosis. No dissection. Right internal carotid artery: Unremarkable. Extracranial segment is patent with no occlusion or significant stenosis. No dissection. Right external carotid artery: Unremarkable. No occlusion. Right vertebral artery: Unremarkable. No occlusion or significant stenosis. No dissection. Left common carotid artery: Unremarkable. No occlusion or significant stenosis. No dissection. Left internal carotid artery: Unremarkable. Extracranial segment is patent with no occlusion or significant stenosis. No dissection. Left external carotid artery: Unremarkable. No occlusion. Left vertebral artery: Unremarkable. No occlusion or significant stenosis. No dissection. NECK: Bones/joints: Status post corpectomy with anterior fusion of C4-C7 with expected postsurgical changes. Advanced disc degeneration at C3-4 with moderate spinal canal stenosis. Soft tissues: Prominent mediastinal lymph nodes. Prominent cervical lymph nodes. Lung apices: Findings concerning for bronchitis, which may be of infectious or inflammatory etiologies. CAROTID STENOSIS REFERENCE USING NASCET CRITERIA: % ICA stenosis = (1 - narrowest ICA diameter/diameter of distal cervical ICA) x 100. Mild - <50% stenosis. Moderate - 50-69% stenosis. Severe - 70-94% stenosis. Near occlusion - 95-99% stenosis. Occluded - 100% stenosis. IMPRESSION: Negative CTA neck. Electronically signed by: Gemma Motlye MD 01/11/23 02:10 AM
--- NOTE | 2023-01-11 02:17 | CT Scan Report ---
Exam(s): CT T SPINE EXAM: CT Thoracic Spine Without Intravenous Contrast CLINICAL HISTORY: Reason for exam: confusion, pain. TECHNIQUE: Axial computed tomography images of the thoracic spine without intravenous contrast. Automated exposure control was utilized for the study. A dose lowering technique was utilized adhering to the principles of ALARA. COMPARISON: Comparison made to prior MRI of the thoracic spine from October 15, 2022. FINDINGS: Vertebrae: Remote fracture deformities of the T10 and T11 vertebral bodies. Mild wedging of T12 which is likely physiologic. No acute fracture. Anterior fusion of the cervical spine. Discs/spinal canal/neural foramina: No acute findings. Critical spinal canal stenosis at T9-10 and severe stenosis at T8-9. Soft tissues: Unremarkable. IMPRESSION: No evidence of acute thoracic spine pathology. Electronically signed by: Gemma Motley MD 01/11/23 02:15 AM
--- NOTE | 2023-01-11 02:40 | CT Scan Report ---
Exam(s): CT HEAD Without Contrast EXAM: CT Head Without Intravenous Contrast CLINICAL HISTORY: confusion, pain. TECHNIQUE: Axial computed tomography images of the head/brain without intravenous contrast. CTDI is 37.22 mGy and DLP is 4423.11 mGy-cm. Automated exposure control was utilized for the study. A dose lowering technique was utilized adhering to the principles of ALARA. COMPARISON: CTA head performed the 2357 hrs. FINDINGS: Brain: There is a developing wedge-shaped area of loss of the hudson- white matter differentiation involving the right lateral frontal region, concerning for developing ischemia. No intracranial hemorrhage. No significant mass effect. The parenchyma is otherwise unremarkable. Ventricles: The ventricles are maintained without effacement. No midline shift or ventriculomegaly. Bones/joints: Unremarkable. No acute fracture. Soft tissues: Unremarkable. Sinuses: Unremarkable as visualized. No acute sinusitis. Mastoid air cells: Unremarkable as visualized. No mastoid effusion. IMPRESSION: There is a developing wedge-shaped area of loss of the hudson-white matter differentiation involving the right lateral frontal region, concerning for developing ischemia. This is new from the previous CTA examination. No intracranial hemorrhage. No significant mass effect. Communications: Verify Receipt Electronically signed by: Kory Sanchez MD 01/11/23 02:39 AM
--- NOTE | 2023-01-11 02:49 | CT Scan Report ---
Exam(s): CT C SPINE EXAM: CT Cervical Spine Without Intravenous Contrast CLINICAL HISTORY: confusion, pain. TECHNIQUE: Axial computed tomography images of the cervical spine without intravenous contrast. Automated exposure control was utilized for the study. A dose lowering technique was utilized adhering to the principles of ALARA. COMPARISON: No relevant prior studies available. FINDINGS: Vertebrae: The vertebral bodies are intact without acute osseous traumatic injury. No anterolisthesis or retrolisthesis is identified. The facet joints are well aligned without subluxation or dislocation. The pedicles, transverse processes and spinous processes are intact. Discs/spinal canal/neural foramina: There is anterior fusion from C4- C7. Asymmetric prominent disc space narrowing with marginal hypertrophic changes noted at C3-C4 and C7-T1. Soft tissues: Unremarkable. IMPRESSION: No acute osseous traumatic injury or significant abnormal alignment involving the cervical spine. Incidental postsurgical changes. Electronically signed by: Kory Sanchez MD 01/11/23 02:47 AM
[2023-01-11] MEDS ORDERED: diphenhydrAMINE 50 MG/ML VIAL IV STA (03:22)
[2023-01-11] MEDS ORDERED: methylPREDNISolone 125 MG/2 ML VIAL IV STA (03:22)
[2023-01-11] MEDS ORDERED: ASPIRIN CHEW 324 MG PO STA (04:11)
--- NOTE | 2023-01-11 04:15 | Communication Note ---
Date of Service: January 11, 2023 57 M DM, HTN, DLD, SIDDHARTHA, CAD, spine surgery complicated by bacteremia. Had an episode of disorientation and unsteady gait two [place] ago [place] that resolved on its own. Did not seek treatment. Disorientation recurred tonight, leading to ED presentation. At baseline in ED. Labs notable for tox screen + for amphetamine and MDMA (confirmatory testing pending). CT shows a small, wedge-shaped infarct in the R lateral frontal lobe, likely subacute. CTA shows modest athero without flow-limiting stenosis or occlusion. Impression: Disorientation and unsteady gait, likely subacute R frontal infarct. - Swallow screen. If he passes, would give ASA 324mg po x 1 and resume 81mg daily - High intensity statin - Check lipids and A1c - MRI brain without contrast - Telemetry - Can be seen by neurology in AM
[2023-01-11] MEDS ORDERED: LORazepam 2 MG/1 ML VIAL IV STA ×2 (04:22→07:27)
--- NOTE | 2023-01-11 04:23 | History & Physical Report ---
Date of Service January 11, 2023 Assessment & Plan (1) CVA (cerebral vascular accident): Plan: -Head CT suggestive of subacute ischemic stroke of R lateral frontal lobe and pt's symptoms are on ipsilateral side -Head/neck CTA negative for significant stenoses -Suspect small vessel atherosclerotic vs central embolic CVA -MRI brain pending -Echocardiogram ordered -Lipid profile, A1C ordered -Telemetry monitoring -Stroke protocol- neuro checks, speech consult, PT/OT consult -Continue medical management for risk reduction -Atorvastatin 80 mg -BP control with losartan, metoprolol -Initiated aspirin 324 mg in ER, start daily aspirin. Case discussed with ne urology- no need for Plavix at present -Neurology consult in AM (2) Chronic back pain: Plan: -History of chronic back pain with multiple lumbar surgeries now having acutely worsening pain over 1 week -Workup thus far not suggestive of acute pathology, including infection -Noted possible S1 screw loosening with postsurgical L1-L5 seroma formation on lumbar spine CT -Given pt's history of spinal surgery complicated by infection w/ bacteremia in past, will monitor back pain closely -Low threshold for repeat MRI imaging of spine -Continue home medications for pain control- amitryptiline, Flexeril, gabapentin, oxycodone -Scheduled Tylenol added (3) Gait abnormality: Plan: -Likely secondary to subacute stroke -PT/OT as above (4) Positive urine drug screen: Plan: -UDS positive for MDMA and amphetamines -Pt's home medications include multiple which can cause false positive of the above -Reflex pending (5) Anemia: Plan: -Hgb 10.6 on admission -Normocytic anemia seemingly in pt's baseline range of 10-12 -Likely of chronic disease, no suspected bleeding at present -Monitor CBC (6) CAD (coronary artery disease): Plan: -Noted history of CAD s/p PCI with PADMINI x3 -No ACS at present, negative troponin and reassuring EKG -Continue Toprol, losartan, atorvastatin -Initiated aspirin as above (7) Diabetes mellitus, type 2: Plan: -Well-controlled DM2 on metformin, last A1C 5.9% in 10/2022 -Hold metformin -Lantus 5u BID, SSI -Repeat A1C in AM (8) GERD (gastroesophageal reflux disease): Plan: -Continue Pepcid (9) Hyperlipidemia: Plan: -Continue atorvastatin 80 mg -Lipid panel pending in AM (10) Hypertension: Plan: -BP stable -Continue losartan, Toprol (11) SIDDHARTHA (obstructive sleep apnea): Plan: -Not on CPAP at home (12) Depression: Plan: -Continue Paxil (13) Prosthetic joint infection: Plan: -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, following with ID -Continue prophylactic doxycycline (14) History of pulmonary embolism: Plan: -Noted history of such, apparently provoked given he is not on any anticoagulation currently -Lovenox SQ daily Plan FENGI: Heart-healthy, DM2 diet Code status: Full DVT prophylaxis: Lovenox Isolation: None Disposition: Medical/surgical with telemedicine History of Present Illness Chief Complaint: R sided weakness/numbness Primary Care Provider: Roberto Esposito Pt is 57 yo M with PMH DM2, HLD, HTN, CAD s/p PCI w/ PADMINI x3, DDD s/p multiple lumbar surgeries with recent decompression 10/2022 for bacteremia, 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 Pt has had ongoing upper/lower back and neck pain intermittently along with some gait imbalance for few months with acute worsening over last week. He also experienced disorientation and unsteady gait 2 days prior while hunting which resolved after few minutes. He reports sudden R sided arm and leg weakness and numbness starting 1 day prior. Disorientation again occurred evening of admission which prompted arrival to ED. Pt arrived to ER hemodynamically stable. Initial evaluation significant for Hgb 10.6, CRP 1.4, negative troponin, negative tickborne panel, UDS positive for amphetamines and MDMA. Cervical spine CT negative. Head/neck CTA negative. Thoracic spine CT negative. Lumbar spine CT significant for soft tissue swelling over L1-L5 possibly representing postsurgical seroma and possible S1 screw loosening. Head CT significant for wedge-shaped area of loss of hudson-white matter involving right lateral frontal region concerning for developing ischemia without hemorrhage or mass effect. ER interventions include 1L NSS bolus, Tylenol 1000 mg IV, Solumedrol 125 mg and Benadryl 25 mg IV for contrast allergy. At present, pt reports continued fatigue, R sided weakness and numbness. No new symptoms. 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 Allergies Allergy/AdvReac Type Severity Reaction Status Date / Time shellfish derived Allergy Severe Throat Verified 01/10/23 22:03 swelling tramadol Allergy Intermediate Hives, Verified 01/10/23 22:03 dizziness, nausea Home Medications Medication Instructions Recorded Confirmed Type amitriptyline 100 mg tablet 100 mg PO HS 02/16/19 01/10/23 History atorvastatin 80 mg tablet (Lipitor) 80 mg PO HS 02/16/19 01/10/23 History famotidine 20 mg tablet (Pepcid) 20 mg PO BID 02/16/19 01/10/23 History metoprolol succinate 25 mg 25 mg PO QAM 02/23/19 01/10/23 History tablet,extended release 24 hr (Toprol XL) metformin 1,000 mg tablet 1,000 mg PO BID 02/29/20 01/10/23 History melatonin 10 mg tablet 10 mg PO HS 09/07/21 01/10/23 History paroxetine HCl 30 mg tablet (Paxil) 30 mg PO QAM 04/05/22 01/10/23 History cyclobenzaprine 10 mg tablet 10 mg PO TID PRN muscle spasm #15 05/25/22 01/10/23 Rx tabs doxycycline monohydrate 100 mg 100 mg PO BID 10/15/22 01/10/23 History capsule gabapentin 300 mg capsule 300 mg PO BID 10/15/22 01/10/23 History losartan 100 mg tablet 100 mg PO QAM 10/15/22 01/10/23 History oxycodone 5 mg tablet 5 mg PO Q6 PRN Pain 12/02/22 01/10/23 History Past Med/Surg History Medical History MSSA bacteremia History of pulmonary embolism Depression Degenerative disc disease s/p cervical fusion Diabetes mellitus, type 2 NIDDM SIDDHARTHA (obstructive sleep apnea) resolved per pt CAD (coronary artery disease) 2006 x 2 stents (LAD, Diagonal) 2011 (PADMINI D1) cardiac stents x3 total (most recent stent 2011) No recent issues GERD (gastroesophageal reflux disease) controlled, stable per pt Myocardial Infarction 2012 > stents Hypertension Hyperlipidemia Surgical History History of reverse total replacement of right shoulder joint Right reverse total shoulder replacement (10/08/21): Glidescope#3, ETT 7.5 + PNB at [facility]. *Difficult airway* per anesthesia record comments. No issues noted per post-op anesthesia progress note. Difficult intubation Right reverse total shoulder replacement (10/08/21): Glidescope#3, ETT 7.5 + PNB at [facility]. *Difficult airway* per anesthesia record comments. No issues noted per post-op anesthesia progress note. History of lumbar fusion 10/04/2020: elective glidescope 3. ETT 8.0. 04/2022 L2-L4 DF with complications d/t infection History of tooth extraction History of repair of rotator cuff right S/P arthroscopy of right shoulder 03/18/19. 02/29/20. LMA#5. History of hip surgery right hip (as a child) History of total knee replacement right knee History of colonoscopy History of esophageal dilatation History of esophagogastroduodenoscopy (EGD) Fusion of spine ACDF C6-C7, C5 corpectomy: 08/08/10: MAC#4, ETT 7.5 at [facility] History of cardiac cath 2006 x 2 stents (LAD, Diagonal) 2011 (PADMINI D1) Family History Father Family history of diabetes mellitus Other No family history of adverse response to anesthesia Social History Smoking Status: Current every day smoker Tobacco Type: Cigarettes Age Started Using Tobacco: 19; Age Quit Using Tobacco: 56; Cigarettes Per Day: 3-4; Second Hand Exposure: No; Do You Dip or Chew Tobacco: No; Hx Alcohol Use: Yes Alcohol type: beer Hx Substance Use: No Preferred Language: Israeli Communication Ability: Effective Hearing Ability: Normal 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 Required: No Beliefs That Will Affect Care: None marital status: Current Living Situation: Spouse Feels Safe at Home: Yes Diet: ideal protein caffeine: Yes during the past year weight has: decreased > 10 lbs Assistive Devices: Cane and Wheelchair Review of Systems Review of Systems: Per HPI/Subjective Physical Exam Physical Exam: General: tired-appearing, no acute distress HEENT: PERRL, EOMI, conjunctivae clear without injection, anicteric sclerae, mildly dry mucous membranes, clear oropharynx without exudate or erythema Neck: supple, trachea midline, no thyromegaly, no JVD, no cervical lymphadenopathy CV: RRR, normal S1 and S2, no murmurs Resp: CTAB, no increased work of breathing, no crackles or wheezes Abd: Soft, nontender, nondistended, no guarding or rebound, no hepatosplenomegaly MSK: Normal bulk of all four extremities Neuro: AOx3, noted RUE + RLE 4+/5 strength compared to LUE/LLE, diminished sensorium diffusely of RLE and RUE compared to L, CN 2-12 intact except for CN8 reduced on R compared to L and reduced sensorium along R CNV3 distribution. Gait not assessed. No dysmetria on cerebellar tasks. No pronator drift or facial droop. Skin: no rashes or lesions, warm and dry Ext: no LE peripheral edema or erythema, capillary refill <2s in all four extremities, 2+ LE peripheral pulses b/l Results & Data Results & Data Vital Signs (Past 12 Hours) Vital Signs Temp Pulse Pulse Resp BP BP Pulse Ox 01/11/23 03:00 68 14 144/91 H 97 01/11/23 00:00 85 18 145/61 H 98 01/10/23 22:00 98 01/10/23 22:00 80 20 132/76 98 01/10/23 21:42 74 01/10/23 21:00 01/10/23 20:17 36.2 C L 74 20 145/72 H 99 O2 Del Method 01/11/23 03:00 Room Air 01/11/23 00:00 Room Air 01/10/23 22:00 Room Air 01/10/23 22:00 Room Air 01/10/23 21:42 01/10/23 21:00 Room Air 01/10/23 20:17 Room Air Code Status & VTE Plan VTE Prophylaxis Plan VTE Prophylaxis will be ordered: Yes Supervising Physician Co-Signing Physician Notes Patient seen and examined, chart reviewed, case discussed with Dr. Rush and I agree with the assessment and plan as documented above. In brief, patient is a 57yo male with histoyr of DM, HTN, HLP and CAD presenting with weakness, gait instability. Patient's symptoms began several days ago. On exam he is afebrile, HD stable, NAD Skin - warm, dry, intact, no rashes/lesions HEENT- MMM, Neck supple, Tongue midline Heart - +S1/S2, regular, no m/r/g Lungs - CTA Abd - soft, NT/ND Ext - warm, well perfused Neuro - speech clear and appropriate, CN with diminished sensation right V2 and V3 distribution, RUE and RLE with mildly diminished strength 4+/5, diminished sensation to light touch RUE/RLE, no drift Labs and images reviewed CT Head with area of loss of hudson-white matter differentiation concerning for developing ischemia Assessment/Plan -57yo male with likely subacute stroke -Check Echo, MRI, Lipid and HgbA1C -Continue Atorvastatin -Start ASA -Remainder as above Resident Activity Tracking Resident Involvement: Resident Care Provided Care Provided: Adult Hospital Medicine (1) CVA (cerebral vascular accident) CVA mechanism: unspecified Qualified Code(s): I63.9 - Cerebral infarction, unspecified (2) Chronic back pain Back pain laterality: unspecified Back pain location: back pain in unspecified location Qualified Code(s): M54.9 - Dorsalgia, unspecified; G89.29 - Other chronic pain (6) CAD (coronary artery disease) Coronary Disease-Associated Artery/Lesion type: unspecified vessel or lesion type
[2023-01-11] MEDS ORDERED: GLUCOSE 40% GEL 15 GM TUBE PO PRN (05:05)
[2023-01-11] MEDS ORDERED: GLUCOSE 10 TAB/TUBE PO PRN (05:05)
[2023-01-11] MEDS ORDERED: CYCLOBENZAPRINE HCL 10 MG TAB PO PRN (05:05)
[2023-01-11] MEDS ORDERED: DEXTROSE 50% 50 ML SYRINGE IV PRN (05:05)
[2023-01-11] MEDS ORDERED: PHARMACIST DISCHARGE MED REC CONSULT PRN (05:05)
[2023-01-11] MEDS ORDERED: CARBOHYDRATES FOR HYPOGLYCEMIA PO PRN (05:05)
[2023-01-11] MEDS ORDERED: GLUCAGON FOR INJ 1 MG VIAL SQ PRN (05:05)
[2023-01-11] MEDS: Patient's HEIGHT &/or WEIGHT Needed SCH ×2 (05:36→05:39)
[2023-01-11] MEDS ORDERED: GADOBUTROL 65ML VIAL IV ONE (06:39)
--- NOTE | 2023-01-11 07:15 | Hospitalist Progress Note ---
Date of Service January 11, 2023 Assessment & Plan (1) CVA (cerebral vascular accident): (2) Chronic back pain: (3) Gait abnormality: (4) Positive urine drug screen: (5) Anemia: (6) CAD (coronary artery disease): (7) Diabetes mellitus, type 2: (8) GERD (gastroesophageal reflux disease): (9) Hyperlipidemia: (10) Hypertension: (11) SIDDHARTHA (obstructive sleep apnea): (12) Depression: (13) Prosthetic joint infection: (14) History of pulmonary embolism: Plan Pt is 57 yo M with PMH DM2, HLD, HTN, CAD s/p PCI w/ PADMINI x3, DDD s/p multiple lumbar surgeries with recent decompression 10/2022 for bacteremia, 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 #CVA -Head CT suggestive of subacute ischemic stroke of R lateral frontal lobe, symptoms on ipsilateral side, Head/neck CTA negative for significant stenoses - brain MRI = late acute infarct in the right frontal lobe with edema and enhancement -Suspect small vessel atherosclerotic vs central embolic CVA -Continue medical management for risk reduction; atorvastatin, BP control, aspirin daily -Neurology consulted, appreciating recommendations -Echocardiogram ordered, pending -Lipid profile, A1C ordered, pending -Stroke protocol- neuro checks, speech consult, PT/OT consult #Chronic back pain -History of chronic back pain with multiple lumbar surgeries now having acutely worsening pain over 1 week, workup thus far not suggestive of acute pathology, including infection -Noted possible S1 screw loosening with postsurgical L1-L5 seroma formation on lumbar spine CT -Given pt's history of spinal surgery complicated by infection w/ bacteremia in past, will monitor back pain closely -Low threshold for repeat MRI imaging of spine -Continue home medications for pain control- amitryptiline, Flexeril, gabapentin, oxycodone -Scheduled Tylenol added #Gait abnormality -Likely secondary to subacute stroke -PT/OT as above #Positive UDS -UDS positive for MDMA and amphetamines -Pt's home medications include multiple which can cause false positive of the above -Reflex pending #Anemia -Hgb 10.6 on admission -Normocytic anemia seemingly in pt's baseline range of 10-12 -Likely of chronic disease, no suspected bleeding at present -Monitor CBC daily #CAD -Noted history of CAD s/p PCI with PADMINI x3 -No ACS at present, negative troponin and reassuring EKG -Continue Toprol, losartan, atorvastatin -Initiated aspirin as above #HTN -BP stable -Continue losartan, metoprolol #DMT2 -Well-controlled DM2 on metformin, last A1C 5.9% in 10/2022 -Hold metformin -Lantus 5u BID, SSI -Repeat A1C in AM #GERD -Continue Pepcid #HLD -Continue atorvastatin 80 mg -Lipid panel pending in AM #SIDDHARTHA -Not on CPAP at home #Depression -Continue Paxil #Prosthetic joint infection, chronic -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, following with ID -Continue prophylactic doxycycline #Hx of PE -Noted history of such, apparently provoked given he is not on any anticoagulation currently -Lovenox SQ daily FENGI: Heart-healthy, DM2 diet Code status: Full DVT prophylaxis: Lovenox Isolation: None Disposition: Medical/surgical with telemedicine Admission and Anticipated Discharge Date Admission Date: January 11, 2023 Supervising Physician Co-Signing Physician Notes I also saw the patient confirmed melgar portions of the clinical history and physical examination. I agree with the impression and plan as noted in the resident documentation above. Patient remains in his emergency department bed awaiting bed availability upstairs. Blood pressure acceptable, 138/78 Neurology recommendations reviewed and appreciated; continue aspirin 81 mg daily and atorvastatin 80 mg nightly. Carotid Doppler, echocardiogram completed. Fasting lipid profile and A1c pending for a.m. PT/OT evaluations pending. 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 Today, pt was seen this morning during his echo with bubble study. No complaints at that time, he states he was just very tired since he was hardly able to sleep last night. No questions for the team at this time. Review of Systems Review of Systems: Constitutional: denies fever, chills, Cardio: denies chest pain, palpitations Resp: denies shortness of breath, Physical Exam Physical Exam: General:Alert and oriented, no acute distress, fatigued HEENT: Normocephalic, moist oral mucosa, Cardio: Regular rate and rhythm, Resp:Lungs clear to auscultation b/l, n Skin: Warm, pink, dry, Psych: Mood-affect congruence. Results & Data Results & Data Vital Signs (Past 12 Hours) Vital Signs Temp Pulse Pulse Resp BP BP Pulse Ox 01/11/23 05:42 69 14 141/91 H 97 01/11/23 05:42 01/11/23 04:35 66 01/11/23 04:00 66 15 139/85 99 01/11/23 03:16 144/91 H 99 01/11/23 03:00 68 14 144/91 H 97 01/11/23 02:00 122/77 01/11/23 00:00 85 18 145/61 H 98 01/10/23 22:00 98 01/10/23 22:00 80 20 132/76 98 01/10/23 21:42 74 01/10/23 21:00 01/10/23 20:17 36.2 C L 74 20 145/72 H 99 Pulse Ox O2 Del Method O2 Del Method 01/11/23 05:42 Room Air 01/11/23 05:42 97 Room Air 01/11/23 04:35 01/11/23 04:00 01/11/23 03:16 01/11/23 03:00 Room Air 01/11/23 02:00 01/11/23 00:00 Room Air 01/10/23 22:00 Room Air 01/10/23 22:00 Room Air 01/10/23 21:42 01/10/23 21:00 Room Air 01/10/23 20:17 Room Air Resident Activity Tracking Resident Involvement: Resident Care Provided Care Provided: Adult Hospital Medicine (1) CVA (cerebral vascular accident) CVA mechanism: unspecified Qualified Code(s): I63.9 - Cerebral infarction, unspecified (2) Chronic back pain Back pain laterality: unspecified Back pain location: back pain in unspecified location Qualified Code(s): M54.9 - Dorsalgia, unspecified; G89.29 - Other chronic pain (6) CAD (coronary artery disease) Coronary Disease-Associated Artery/Lesion type: unspecified vessel or lesion type
--- NOTE | 2023-01-11 07:37 | Magnetic Resonance Report ---
MR brain wo/w con CLINICAL HISTORY: stroke on CT scan TECHNIQUE: Multiplanar and multisequence MR images of the brain were obtained prior to and following administration of gadolinium contrast. Comparison: Comparison is made to CT head 01/10/2023 and MRI brain FINDINGS: No abnormal restricted diffusion is identified, there is elevated ADC in a region of the right fronta l cortex. There is enhancement and edema in the right frontal cortex corresponding to the focus of ed junior seen on prior CT. The ventricular system is normal in appearance. No mass or abnormal enhancement is seen. There is no mass effect or midline shift. There is no evidence of acute intraparenchymal he morrhage. No extra axial fluid collections are seen. The corpus callosum, pituitary gland, and cerebe llar tonsils appear grossly unremarkable. Flow voids of the major intracranial arterial vessels are identified. The imaged portions of the para nasal sinuses, mastoid air cells, and orbits are unremarkable. IMPRESSION: Findings are compatible with late acute infarct in the right frontal lobe with edema and enhancement. No hemorrhagic transformation is seen. ACT 112: Negative or not required by law. Electronically signed by: Be Armando M.D. 01/11/2023 7:35 AM
[2023-01-11] MEDS: DOXYCYCLINE HYCLATE 100 MG CAP PO SCH ×2 (09:27→21:49)
[2023-01-11] MEDS: ACETAMINOPHEN 500 MG TAB PO SCH ×3 (09:28→23:36)
[2023-01-11] MEDS: ASPIRIN 81 MG ECTAB PO SCH (09:29)
[2023-01-11] MEDS: LANTUS PER UNIT CHARGE SQ SCH ×2 (09:29→21:49)
[2023-01-11] MEDS: INSULIN ASPART PER UNIT CHARGE SC SCH ×4 (09:30→21:48)
--- NOTE | 2023-01-11 09:38 | Neurology Consultation ---
Date of Consultation January 11, 2023 Assessment & Plan (1) CVA (cerebral vascular accident): Plan 57-year-old male presenting with subacute right frontal stroke extending to the cortex with associated edema and enhancement, no hemorrhagic transformation. The stroke does look thromboembolic, would consider cardioembolic source, possible occult atrial fibrillation. No evidence of vascular lesion on CTA of the head and neck. Patient does have several stroke risk factors including type 2 diabetes mellitus, hypertension, dyslipidemia, occasional tobacco use. He had a positive urine toxicology screen for amphetamine as well as MDMA, possible false positive screen, does not endorse any recent stimulant use. He does not have obvious neurologic deficits that would localize to this recent right frontal stroke. The remainder of his brain parenchyma looks fairly normal. No evidence of chronic stroke in other vascular distributions. Agree with initiation of aspirin. Follow-up with results of transthoracic echocardiogram with bubble study. We will check an up-to-date lipid profile and hemoglobin A1c. Continue cardiac monitoring, would recommend 30-day mobile cardiac outpatient telemetry upon discharge. Continue with atorvastatin as ordered. Continue medical management of diabetes. Tobacco cessation counseling. Follow-up with UDS confirmation testing. Continue medical management of hypertension. Should not require additional outpatient neurology follow-up. Patient should follow-up with his usual physicians after discharge including cardiology, orthopedics, PCP. History of Present Illness Reason for Consultation: stroke Requesting Physician: Adri Attending Physician: Elias Lee DO History of Present Illness The patient is a 57-year-old right-handed male who presented to the emergency department on December 01 with chest pain. He does have a history of CAD, coronary stenting, RI. No acute abnormalities were identified at that time and he was discharged. He presented again to the emergency department last night with unsteadiness and a few episodes of confusion. He endorses low-grade headache, chronic neck and low back pain, no acute vision loss, vertigo, change in speech. Endorses a feeling of weakness for the right leg. Denies any other acute motor or sensory symptoms. A CT of the head revealed an evolving right frontal lobe infarct. A CTA of the head and neck were unremarkable. A brain MRI reveals a subacute infarct within the right frontal lobe with associated edema and enhancement, no hemorrhagic transformation. I independently reviewed these images. Aspirin has been started. He endorses occasional tobacco use. Urine toxicology screen was positive for amphetamine. Patient denies any recent use of stimulants. He does appear mildly restless. He denies any significant alcohol use. Allergies Allergy/AdvReac Type Severity Reaction Status Date / Time shellfish derived Allergy Severe Throat Verified 01/10/23 22:03 swelling tramadol Allergy Intermediate Hives, Verified 01/10/23 22:03 dizziness, nausea Home Medications Medication Instructions Recorded Confirmed Type amitriptyline 100 mg tablet 100 mg PO HS 02/16/19 01/10/23 History atorvastatin 80 mg tablet (Lipitor) 80 mg PO HS 02/16/19 01/10/23 History famotidine 20 mg tablet (Pepcid) 20 mg PO BID 02/16/19 01/10/23 History metoprolol succinate 25 mg 25 mg PO QAM 02/23/19 01/10/23 History tablet,extended release 24 hr (Toprol XL) metformin 1,000 mg tablet 1,000 mg PO BID 02/29/20 01/10/23 History melatonin 10 mg tablet 10 mg PO HS 09/07/21 01/10/23 History paroxetine HCl 30 mg tablet (Paxil) 30 mg PO QAM 04/05/22 01/10/23 History cyclobenzaprine 10 mg tablet 10 mg PO TID PRN muscle spasm #15 05/25/22 01/10/23 Rx tabs doxycycline monohydrate 100 mg 100 mg PO BID 10/15/22 01/10/23 History capsule gabapentin 300 mg capsule 300 mg PO BID 10/15/22 01/10/23 History losartan 100 mg tablet 100 mg PO QAM 10/15/22 01/10/23 History oxycodone 5 mg tablet 5 mg PO Q6 PRN Pain 12/02/22 01/10/23 History Patient History Medical History MSSA bacteremia History of pulmonary embolism 1990s Depression Degenerative disc disease s/p cervical fusion Diabetes mellitus, type 2 NIDDM SIDDHARTHA (obstructive sleep apnea) resolved per pt CAD (coronary artery disease) 2006 x 2 stents (LAD, Diagonal) 2011 (PADMINI D1) cardiac stents x3 total (most recent stent 2011) No recent issues GERD (gastroesophageal reflux disease) controlled, stable per pt Myocardial Infarction 2012 > stents Hypertension Hyperlipidemia Surgical History History of reverse total replacement of right shoulder joint Right reverse total shoulder replacement (10/08/21): Glidescope#3, ETT 7.5 + PNB at [facility]. *Difficult airway* per anesthesia record comments. No issues noted per post-op anesthesia progress note. Difficult intubation Right reverse total shoulder replacement (10/08/21): Glidescope#3, ETT 7.5 + PNB at [facility]. *Difficult airway* per anesthesia record comments. No issues noted per post-op anesthesia progress note. History of lumbar fusion 10/04/2020: elective glidescope 3. ETT 8.0. 04/2022 L2-L4 DF with complications d/t infection History of tooth extraction History of repair of rotator cuff right S/P arthroscopy of right shoulder 03/18/19. 02/29/20. LMA#5. History of hip surgery right hip (as a child) History of total knee replacement right knee History of colonoscopy History of esophageal dilatation History of esophagogastroduodenoscopy (EGD) Fusion of spine ACDF C6-C7, C5 corpectomy: 08/08/10: MAC#4, ETT 7.5 at [facility] History of cardiac cath 2007 x 2 stents (LAD, Diagonal) 2011 (PADMINI D1) Family History Father Family history of diabetes mellitus Other No family history of adverse response to anesthesia Social History Smoking Status: Current every day smoker Tobacco Type: Cigarettes Age Started Using Tobacco: 19; Age Quit Using Tobacco: 56; Cigarettes Per Day: 3-4; Second Hand Exposure: No; Do You Dip or Chew Tobacco: No; Tobacco Cessation Education Requested by Patient: No Hx Alcohol Use: Yes Alcohol type: beer Hx Substance Use: No Preferred Language: Irish Communication Ability: Effective Hearing Ability: Normal Staffing Director Required: No Beliefs That Will Affect Care: None marital status: Current Living Situation: Spouse Other Information That Helps Us Care for You: No Feels Safe at Home: Yes Diet: ideal protein caffeine: Yes during the past year weight has: decreased > 10 lbs Assistive Devices: Cane and Wheelchair Review of Systems Constitutional: no fever and no chills Eyes: no blind spots and no diplopia Ear, Nose, Mouth, Throat: no hearing loss Respiratory: no cough and no dyspnea Cardiovascular: as per Subjective / HPI and + chest pain Gastrointestinal: no nausea and no vomiting Genitourinary: no urinary incontinence Musculoskeletal: + back pain and + neck pain Integumentary: no rash and no lesions Neurologic: as per Subjective / HPI, + unsteadiness, + localized weakness, + restless legs, + headache(s) and + confusion; no seizure-like activity Psychiatric: no depression and no anxiety Hematologic / Lymphatic: no easy bleeding and no easy bruising Exam (Neuro) Constitutional: well developed and well nourished; no acute distress Eyes: normal visual robb by confrontation, PERRL and EOM intact bilaterally Neurologic: Oriented to:: Person, Place and Time Memory: Short Term Intact and Remote Intact Attention: Span Intact and Concentration Intact Speech Fluency: negative Dysarthria or Dysfluency Speech Aphasia: negative Aphasia Fund of Knowledge: Current Events, Past History and Vocabulary Cranial Nerves: Normal II, III, IV, , V, VII, VIII, IX, X, XI and XII Motor Strength: Normal Lower Extremities and Normal Upper Extremities Motor Tone: Normal Lower Extremities and Normal Upper Extremities Muscle Bulk/Involuntary Movements: negative Muscle Atrophy, Rest Tremor (Arm) or Action Tremor Sensation: Light Touch Intact, Pain/Temperature Intact and Proprioception Intact Coordination: Normal; negative Dysdiadochokinesia, Finger-Nose Abnormal or Heel-Gasca Abnormal Deep Tendon Reflexes: Rt Triceps: 2+, Lt Triceps: 2+, Rt Biceps: 2+, Lt Biceps: 2+, Rt Brachioradialis: 2+, Lt Brachioradialis: 2+, Rt Patellar: 2+, Lt Patellar: 2+, Rt Ankle: 2+ and Lt Ankle: 2+ Special Tests: negative Babinski Present Details: Restless movement of the lower limbs noted Results & Data Vital Signs (Past 12 Hours) Vital Signs Pulse Pulse Resp BP BP Pulse Ox Pulse Ox 01/11/23 07:46 70 20 163/109 H 98 01/11/23 05:42 69 14 141/91 H 97 01/11/23 05:42 97 01/11/23 04:35 66 01/11/23 04:00 66 15 139/85 99 01/11/23 03:16 144/91 H 99 01/11/23 03:00 68 14 144/91 H 97 01/11/23 02:00 122/77 01/11/23 00:00 85 18 145/61 H 98 01/10/23 22:00 98 01/10/23 22:00 80 20 132/76 98 01/10/23 21:42 74 O2 Del Method O2 Del Method 01/11/23 07:46 Room Air 01/11/23 05:42 Room Air 01/11/23 05:42 Room Air 01/11/23 04:35 01/11/23 04:00 01/11/23 03:16 01/11/23 03:00 Room Air 01/11/23 02:00 01/11/23 00:00 Room Air 01/10/23 22:00 Room Air 01/10/23 22:00 Room Air 01/10/23 21:42 Laboratory Results WBC 10.36, hemoglobin 10.6, hematocrit 31.7, platelet count 267, sodium 136, potassium 4.0, BUN 20, creatinine 1.05, glucose 95, magnesium 1.8, AST 23, ALT 21, high-sensitivity troponin 3.6, CRP 1.39, Lyme screen negative, hemoglobin A1c from this past October was 5.[address] of the head, CTA of the head and neck, and brain MRI are as described in the HPI, I independently reviewed these images. Electrocardiogram revealed a normal sinus rhythm, 72 bpm. Coding Level of Care Code 30571 INT INP/OBS CARE 3/75MIN Diagnoses CVA (cerebral vascular accident) I63.9 CVA mechanism: unspecified Time Spent (min) 80 (1) CVA (cerebral vascular accident) CVA mechanism: unspecified Qualified Code(s): I63.9 - Cerebral infarction, unspecified
--- NOTE | 2023-01-11 10:06 | XRay Report ---
XR chest 1V portable CLINICAL HISTORY: Chest pain, nonspecific TECHNIQUE: Single frontal radiograph of the chest was obtained. Comparison: Comparison is made to chest radiograph 12/01/2022 FINDINGS: Right shoulder arthroplasty is seen. ACDF is seen. The cardiomediastinal silhouette is normal. The sourav ngs are clear. No evidence of pleural effusion or pneumothorax. IMPRESSION: No acute chest disease. ACT 112: Negative or not required by law. Electronically signed by: Be Armando M.D. 01/11/2023 10:05 AM
[2023-01-11] MEDS: GABAPENTIN 300 MG CAP PO SCH ×2 (10:17→21:49)
[2023-01-11] MEDS: LOSARTAN POTASSIUM 50 MG TAB PO SCH (10:17)
[2023-01-11] MEDS: PARoxetine HCL 20 MG TAB PO SCH (10:18)
[2023-01-11] MEDS: METOPROLOL SUCC 25MG EXT REL TAB PO SCH (10:19)
[2023-01-11] MEDS: FAMOTIDINE 20 MG TAB PO SCH ×2 (10:19→21:49)
[2023-01-11] MEDS: ENOXAPARIN INJ 40 MG/0.4 ML SYR SQ SCH (10:20)
[2023-01-11] MEDS: oxyCODONE HCL IR 5 MG TAB (IMMEDIATE RELEASE) PO PRN ×2 (12:11→19:05)
--- NOTE | 2023-01-11 13:30 | XCELERA ---
[id number] \\[id number]
[2023-01-11] MEDS: MELATONIN 3 MG TAB PO SCH (21:49)
[2023-01-11] MEDS: AMITRIPTYLINE HCL 100 MG TAB PO SCH (21:49)
[2023-01-11] MEDS: ATORVASTATIN 40 MG TAB PO SCH (21:49)
[2023-01-12 05:20] LABS: Basophils # (auto) 0.03 K/uL (0.00-0.20); Basophils % (auto) 0.2 %; Eosinophils # (auto) 0.01 K/uL (0.00-0.50); Eosinophils % (auto) 0.1 %; Hematocrit (blood only) 31.3 % (42.0-52.0); Hemoglobin 10.6 g/dl (14.0-18.0); Immature Granulocytes # (auto) 0.06 K/uL (0.01-0.20); Immature Granulocytes % (auto) 0.4 %; Lymphocytes # (auto) 1.66 K/uL (1.20-3.40); Lymphocytes % (auto) 12.1 %; Mean Corpuscular Hemoglobin 30.2 pg (25.0-34.0); Mean Corpuscular Hgb Conc 33.9 g/dL (32.0-36.0); Mean Corpuscular Volume 89.2 fL (80.0-100.0); Mean Platelet Volume 10.7 fL (9.4-12.4); Monocytes # (auto) 1.04 K/uL (0.11-0.59); Monocytes % (auto) 7.6 %; Neutrophils # (auto) 10.88 K/uL (1.40-6.50); Neutrophils % (auto) 79.6 %; Platelet Count 266 K/uL (130-400); RDW Coefficient of Variation 13.6 % (11.5-14.5); RDW Standard Deviation 44.1 fL (36.4-46.3); Red Blood Count 3.51 M/uL (4.70-6.10); White Blood Count 13.68 K/ul (4.8-10.8)
[2023-01-12 05:26] LABS: BUN Creatinine Ratio 23.3 (10-20); Calcium 9.1 mg/dl (8.6-10.3); Chol HDL Ratio 2.3 (0-5); Creatinine Clr Calc Pharmacy 115.8 ml/min; Est GFR (African American) 111.6 ml/min; Est GFR (Non-African American) 96.3 ml/min; Potassium 4.1 mmol/L (3.5-5.1)
--- NOTE | 2023-01-12 06:46 | Hospitalist Progress Note ---
Date of Service January 12, 2023 Assessment & Plan (1) CVA (cerebral vascular accident): (2) Chronic back pain: (3) Gait abnormality: (4) Positive urine drug screen: (5) Anemia: (6) CAD (coronary artery disease): (7) Diabetes mellitus, type 2: (8) GERD (gastroesophageal reflux disease): (9) Hyperlipidemia: (10) Hypertension: (11) SIDDHARTHA (obstructive sleep apnea): (12) Depression: (13) Prosthetic joint infection: (14) History of pulmonary embolism: Plan Pt is 57 yo M with PMH DM2, HLD, HTN, CAD s/p PCI w/ PADMINI x3, DDD s/p multiple lumbar surgeries with recent decompression 10/2022 for bacteremia, 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 Today, awaiting PT/OT recommendations for discharge planning. #CVA -Head CT suggestive of subacute ischemic stroke of R lateral frontal lobe, symptoms on ipsilateral side, Head/neck CTA negative for significant stenoses - brain MRI = late acute infarct in the right frontal lobe with edema and e nhancement -Suspect small vessel atherosclerotic vs central embolic CVA -Continue medical management for risk reduction; atorvastatin, BP control, aspirin daily -Neurology consulted, appreciating recommendations -Echocardiogram ordered; wnl -Stroke protocol- neuro checks, - awaiting speech consult, PT/OT recommendations #Chronic back pain -History of chronic back pain with multiple lumbar surgeries now having acutely worsening pain over 1 week, workup thus far not suggestive of acute pathology, including infection -Noted possible S1 screw loosening with postsurgical L1-L5 seroma formation on lumbar spine CT -Given pt's history of spinal surgery complicated by infection w/ bacteremia in past, will monitor back pain closely -Low threshold for repeat MRI imaging of spine -Continue home medications for pain control- amitriptyline, Flexeril, gabapentin, oxycodone -Scheduled Tylenol added #Gait abnormality -Likely secondary to subacute stroke -PT/OT as above #Positive UDS -UDS positive for MDMA and amphetamines -Pt's home medications include multiple which can cause false positive of the above -Reflex pending #Anemia -Hgb 10.6 on admission -Normocytic anemia seemingly in pt's baseline range of 10-12 -Likely of chronic disease, no suspected bleeding at present -Monitor CBC daily #CAD -Noted history of CAD s/p PCI with PADMINI x3 -No ACS at present, negative troponin and reassuring EKG -Continue Toprol, losartan, atorvastatin -Initiated aspirin as above #HTN -BP stable -Continue losartan, metoprolol #DMT2 -Well-controlled DM2 on metformin, HA1c 5.9% -Hold metformin -Lantus 5u BID, SSI -Repeat A1C in AM #GERD -Continue Pepcid #HLD -Continue atorvastatin 80 mg -Lipid panel pending in AM #SIDDHARTHA -Not on CPAP at home #Depression -Continue Paxil #Prosthetic joint infection, chronic -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, following with ID -Continue prophylactic doxycycline #Hx of PE -Noted history of such, apparently provoked given he is not on any anticoagulation currently -Lovenox SQ daily FENGI: Heart-healthy, DM2 diet Code status: Full DVT prophylaxis: Lovenox Isolation: None Disposition: Medical/surgical with telemedicine Admission and Anticipated Discharge Date Admission Date: January 11, 2023 Supervising Physician Co-Signing Physician Notes I also saw the patient confirmed melgar portions of the clinical history and physical examination. I agree with the impression and plan as noted in the resident documentation above. Patient is without new complaints this morning. He did participate in physical therapy. It sounds as if he had to utilize a walker as he was leaning towards the right somewhat. Exam 142/87, 65, 18, 36.9, 90% room air Pleasant. Alert. 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 Today, pt states that he is feeling well. He has no questions or complaints at this time. No chest pain or SOB, no nausea or vomiting. He states he was able to get up with PT today but that he was leaning to the R side so he did use a walker. He notes that he lives at home with his and prior to admission was ambulating on own and able to do all his ADL's without difficulty. Review of Systems Review of Systems: Constitutional: denies fever, chills, Cardio: denies chest pain, palpitations Resp: denies shortness of breath, Physical Exam Physical Exam: General:Alert and oriented, no acute distress, fatigued HEENT: Normocephalic, moist oral mucosa, Cardio: Regular rate and rhythm, Resp:Lungs clear to auscultation b/l, n Skin: Warm, pink, dry, Psych: Mood-affect congruence. Results & Data Results & Data Vital Signs (Past 12 Hours) Vital Signs Temp Pulse Pulse Resp BP BP Pulse Ox 01/12/23 04:01 01/12/23 03:41 36.7 C 69 16 114/68 95 01/11/23 23:41 01/11/23 22:00 79 01/11/23 21:30 77 01/11/23 21:15 36.5 C 71 18 132/78 98 01/11/23 20:00 79 16 134/70 98 O2 Del Method O2 Del Method 01/12/23 04:01 Room Air 01/12/23 03:41 Room Air 01/11/23 23:41 Room Air 01/11/23 22:00 01/11/23 21:30 01/11/23 21:15 Room Air 01/11/23 20:00 Room Air Resident Activity Tracking Resident Involvement: Resident Care Provided Care Provided: Adult Hospital Medicine (1) CVA (cerebral vascular accident) CVA mechanism: unspecified Qualified Code(s): I63.9 - Cerebral infarction, unspecified (2) Chronic back pain Back pain laterality: unspecified Back pain location: back pain in unspecified location Qualified Code(s): M54.9 - Dorsalgia, unspecified; G89.29 - Other chronic pain (6) CAD (coronary artery disease) Coronary Disease-Associated Artery/Lesion type: unspecified vessel or lesion type
[2023-01-12 08:08] LABS: Estimated Average Glucose 123 mg/dl; Hemoglobin A1C 5.9 % (4.5-5.6)
[2023-01-12] MEDS: ACETAMINOPHEN 500 MG TAB PO SCH ×2 (08:57→16:08)
[2023-01-12] MEDS: oxyCODONE HCL IR 5 MG TAB (IMMEDIATE RELEASE) PO PRN ×3 (08:59→22:06)
[2023-01-12] MEDS: ASPIRIN 81 MG ECTAB PO SCH (09:00)
[2023-01-12] MEDS: DOXYCYCLINE HYCLATE 100 MG CAP PO SCH ×2 (09:00→21:15)
[2023-01-12] MEDS: ENOXAPARIN INJ 40 MG/0.4 ML SYR SQ SCH (09:00)
[2023-01-12] MEDS: FAMOTIDINE 20 MG TAB PO SCH ×2 (09:01→21:15)
[2023-01-12] MEDS: LOSARTAN POTASSIUM 50 MG TAB PO SCH (09:01)
[2023-01-12] MEDS: GABAPENTIN 300 MG CAP PO SCH ×2 (09:01→21:16)
[2023-01-12] MEDS: PARoxetine HCL 20 MG TAB PO SCH (09:02)
[2023-01-12] MEDS: METOPROLOL SUCC 25MG EXT REL TAB PO SCH (09:03)
[2023-01-12] MEDS: INSULIN ASPART PER UNIT CHARGE SC SCH ×4 (09:04→21:16)
[2023-01-12] MEDS: LANTUS PER UNIT CHARGE SQ SCH ×2 (09:08→21:15)
--- NOTE | 2023-01-12 17:50 | Electrocardiogram Report ---
Test Reason : Blood Pressure : / mmHG Vent. Rate : 072 BPM Atrial Rate : 072 BPM P-R Int : 158 ms QRS Dur : 090 ms QT Int : 414 ms P-R-T Axes : 044 062 063 degrees QTc Int : 453 ms Normal sinus rhythm Normal ECG When compared with ECG of 01-DEC-2022 20:43, No significant change was found Confirmed by Galindo Wolf ([id number]) on 01/12/2023 5:50:10 PM Referred By: REFERRED SELF Confirmed By:Galindo Wolf
--- NOTE | 2023-01-12 20:01 | Billing Data ---
Date of Service January 11, 2023 Coding Level of Care Code 97040 INT INP/OBS CARE
[2023-01-12] MEDS: AMITRIPTYLINE HCL 100 MG TAB PO SCH (21:15)
[2023-01-12] MEDS: ATORVASTATIN 40 MG TAB PO SCH (21:15)
[2023-01-12] MEDS: MELATONIN 3 MG TAB PO SCH (21:16)
[2023-01-13] MEDS: ACETAMINOPHEN 500 MG TAB PO SCH ×3 (00:34→17:07)
[2023-01-13 05:23] LABS: Basophils # (auto) 0.07 K/uL (0.00-0.20); Basophils % (auto) 0.9 %; Eosinophils # (auto) 0.17 K/uL (0.00-0.50); Eosinophils % (auto) 2.3 %; Hematocrit (blood only) 32.4 % (42.0-52.0); Hemoglobin 10.7 g/dl (14.0-18.0); Immature Granulocytes # (auto) 0.02 K/uL (0.01-0.20); Immature Granulocytes % (auto) 0.3 %; Lymphocytes # (auto) 2.38 K/uL (1.20-3.40); Lymphocytes % (auto) 31.7 %; Mean Corpuscular Hemoglobin 30.1 pg (25.0-34.0); Mean Corpuscular Volume 91.3 fL (80.0-100.0); Mean Platelet Volume 10.5 fL (9.4-12.4); Monocytes # (auto) 0.59 K/uL (0.11-0.59); Monocytes % (auto) 7.9 %; Neutrophils # (auto) 4.27 K/uL (1.40-6.50); Neutrophils % (auto) 56.9 %; Platelet Count 222 K/uL (130-400); RDW Coefficient of Variation 13.5 % (11.5-14.5); RDW Standard Deviation 45.8 fL (36.4-46.3); Red Blood Count 3.55 M/uL (4.70-6.10)
[2023-01-13 05:31] LABS: BUN Creatinine Ratio 19.8 (10-20); Calcium 8.6 mg/dl (8.6-10.3); Creatinine Clr Calc Pharmacy 98.6 ml/min; Est GFR (African American) 95.3 ml/min; Est GFR (Non-African American) 82.2 ml/min; Potassium 4.3 mmol/L (3.5-5.1)
--- NOTE | 2023-01-13 06:47 | Hospitalist Progress Note ---
Date of Service January 13, 2023 Assessment & Plan (1) CVA (cerebral vascular accident): (2) Chronic back pain: (3) Gait abnormality: (4) Positive urine drug screen: (5) Anemia: (6) CAD (coronary artery disease): (7) Diabetes mellitus, type 2: (8) GERD (gastroesophageal reflux disease): (9) Hyperlipidemia: (10) Hypertension: (11) SIDDHARTHA (obstructive sleep apnea): (12) Depression: (13) Prosthetic joint infection: (14) History of pulmonary embolism: Plan Pt is 57 yo M with PMH DM2, HLD, HTN, CAD s/p PCI w/ PADMINI x3, DDD s/p multiple lumbar surgeries with recent decompression 10/2022 for bacteremia, 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 #CVA -Head CT suggestive of subacute ischemic stroke of R lateral frontal lobe, symptoms on ipsilateral side, Head/neck CTA negative for significant stenoses - brain MRI = late acute infarct in the right frontal lobe with edema and enhancement -Suspect small vessel atherosclerotic vs central embolic CVA -Continue medical management for risk reduction; atorvastatin, BP control, aspirin daily -Neurology consulted, appreciating recommendations -Echocardiogram ordered; wnl -Stroke protocol- neuro checks, -speech consul; nothing further needed -PT/OT; home with walker vs acute rehab depending on pt's preference #Chronic back pain -History of chronic back pain with multiple lumbar surgeries now having acutely worsening pain over 1 week, workup thus far not suggestive of acute pathology, including infection -Noted possible S1 screw loosening with postsurgical L1-L5 seroma formation on lumbar spine CT -Given pt's history of spinal surgery complicated by infection w/ bacteremia in past, will monitor back pain closely -Low threshold for repeat MRI imaging of spine -Continue home medications for pain control- amitriptyline, Flexeril, gabapentin, oxycodone -Scheduled Tylenol added #Gait abnormality -Likely secondary to subacute stroke -PT/OT as above #Positive UDS -UDS positive for MDMA and amphetamines -Pt's home medications include multiple which can cause false positive of the above -Reflex pending #Anemia -Hgb 10.6 on admission -Normocytic anemia seemingly in pt's baseline range of 10-12 -Likely of chronic disease, no suspected bleeding at present -Monitor CBC daily #CAD -Noted history of CAD s/p PCI with PADMINI x3 -No ACS at present, negative troponin and reassuring EKG -Continue Toprol, losartan, atorvastatin -Initiated aspirin as above #HTN -BP stable -Continue losartan, metoprolol #DMT2 -Well-controlled DM2 on metformin, HA1c 5.9% -Hold metformin -Lantus 5u BID, SSI -Repeat A1C in AM #GERD -Continue Pepcid #HLD -Continue atorvastatin 80 mg -Lipid panel pending in AM #SIDDHARTHA -Not on CPAP at home #Depression -Continue Paxil #Prosthetic joint infection, chronic -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, following with ID -Continue prophylactic doxycycline #Hx of PE -Noted history of such, apparently provoked given he is not on any anticoagulation currently -Lovenox SQ daily FENGI: Heart-healthy, DM2 diet Code status: Full DVT prophylaxis: Lovenox Isolation: None Disposition: Medical/surgical with telemedicine Admission and Anticipated Discharge Date Admission Date: January 11, 2023 Supervising Physician Co-Signing Physician Notes I personally examined the patient and verified all melgar points of history and exam, discussed case, and agree with decision making with Dr Bowling Feeling okay this week. Somewhat ambivalent about going to rehab versus going home, but not opposed to going to rehab. Vitals noted, in general he is awake and alert pleasant no distress. HEENT normocephalic atraumatic mucous membranes moist. Breathing unlabored no accessory muscle use good effort. Skin shows no rashes no pallor or icterus. weaknessappears with hindsight to be due to subacute stroke. Secondary risk reduction as current. Outpatient event monitor to screen for paroxysmal A-fib. Hopefully will be able to get him placed at rehab. Otherwise as above. 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 Today, pt states he is feeling okay, no concerns or questions at this time. Review of Systems Review of Systems: Constitutional: denies fever, chills, Cardio: denies chest pain, palpitations Resp: denies shortness of breath, Physical Exam Physical Exam: General:Alert and oriented, no acute distress, fatigued HEENT: Normocephalic, moist oral mucosa, Cardio: Regular rate and rhythm, Resp:Lungs clear to auscultation b/l, n Skin: Warm, pink, dry, Psych: Mood-affect congruence. Results & Data Results & Data Vital Signs (Past 12 Hours) Vital Signs Temp Pulse Pulse Resp BP BP Pulse Ox 01/13/23 03:09 36.5 C 63 18 131/89 97 01/13/23 01:03 68 01/12/23 23:09 36.5 C 66 16 130/80 96 01/12/23 19:45 36.7 C 70 18 138/88 95 O2 Del Method 01/13/23 03:09 Room Air 01/13/23 01:03 01/12/23 23:09 Room Air 01/12/23 19:45 Room Air Resident Activity Tracking Resident Involvement: Resident Care Provided Care Provided: Adult Hospital Medicine (1) CVA (cerebral vascular accident) CVA mechanism: unspecified Qualified Code(s): I63.9 - Cerebral infarction, unspecified (2) Chronic back pain Back pain laterality: unspecified Back pain location: back pain in unspecified location Qualified Code(s): M54.9 - Dorsalgia, unspecified; G89.29 - Other chronic pain (6) CAD (coronary artery disease) Coronary Disease-Associated Artery/Lesion type: unspecified vessel or lesion type
[2023-01-13] MEDS: LANTUS PER UNIT CHARGE SQ SCH ×2 (08:37→20:29)
[2023-01-13] MEDS: INSULIN ASPART PER UNIT CHARGE SC SCH ×4 (08:37→20:30)
[2023-01-13] MEDS: GABAPENTIN 300 MG CAP PO SCH ×2 (08:38→20:30)
[2023-01-13] MEDS: PARoxetine HCL 20 MG TAB PO SCH (08:38)
[2023-01-13] MEDS: oxyCODONE HCL IR 5 MG TAB (IMMEDIATE RELEASE) PO PRN ×2 (08:38→17:07)
[2023-01-13] MEDS: FAMOTIDINE 20 MG TAB PO SCH ×2 (08:38→20:30)
[2023-01-13] MEDS: LOSARTAN POTASSIUM 50 MG TAB PO SCH (08:39)
[2023-01-13] MEDS: DOXYCYCLINE HYCLATE 100 MG CAP PO SCH ×2 (08:39→20:30)
[2023-01-13] MEDS: ENOXAPARIN INJ 40 MG/0.4 ML SYR SQ SCH (08:39)
[2023-01-13] MEDS: ASPIRIN 81 MG ECTAB PO SCH (08:39)
[2023-01-13] MEDS: METOPROLOL SUCC 25MG EXT REL TAB PO SCH (08:39)
--- NOTE | 2023-01-13 11:21 | Pharmacy Report ---
- Date of Service January 13, 2023 - Pharmacy CVA/TIA Medication Review Medications to Prevent Stroke handout has been added to the patients discharge packet. Antiplatelet(s) * Aspirin 81mg daily Cholesterol * High intensity statin: atorvastatin 80 mg daily DVT Prophylaxis * Enoxaparin SQ Therapeutic Anticoagulation * No history of Afib/Aflutter noted Type 2 Diabetes * Patient has T2DM, but per Dr. Bowling, a diabetes medication with proven CVD benefit will be deferred to their outpatient provider due to familiarity with risks/benefits of such therapies. "Medications to prevent stroke" handout has already been added to the patient's discharge packet, which instructs the patient to follow up with their outpatient provider to evaluate which diabetes medication with proven CVD benefit is best for them
--- NOTE | 2023-01-13 17:33 | Billing Data ---
Date of Service January 13, 2023 Coding Level of Care Code 77717 SUB INP/OBS CARE
[2023-01-13] MEDS: MELATONIN 3 MG TAB PO SCH (20:30)
[2023-01-13] MEDS: ATORVASTATIN 40 MG TAB PO SCH (20:30)
[2023-01-13] MEDS: AMITRIPTYLINE HCL 100 MG TAB PO SCH (20:30)
[2023-01-14] MEDS: ACETAMINOPHEN 500 MG TAB PO SCH ×3 (01:15→16:14)
[2023-01-14] MEDS: oxyCODONE HCL IR 5 MG TAB (IMMEDIATE RELEASE) PO PRN ×4 (01:33→22:43)
[2023-01-14 05:23] LABS: Basophils # (auto) 0.06 K/uL (0.00-0.20); Basophils % (auto) 0.7 %; Eosinophils # (auto) 0.29 K/uL (0.00-0.50); Eosinophils % (auto) 3.4 %; Hematocrit (blood only) 32.7 % (42.0-52.0); Hemoglobin 10.9 g/dl (14.0-18.0); Immature Granulocytes # (auto) 0.03 K/uL (0.01-0.20); Immature Granulocytes % (auto) 0.3 %; Lymphocytes # (auto) 2.08 K/uL (1.20-3.40); Lymphocytes % (auto) 24.2 %; Mean Corpuscular Hemoglobin 29.9 pg (25.0-34.0); Mean Corpuscular Hgb Conc 33.3 g/dL (32.0-36.0); Mean Corpuscular Volume 89.6 fL (80.0-100.0); Mean Platelet Volume 10.7 fL (9.4-12.4); Monocytes % (auto) 8.1 %; Neutrophils # (auto) 5.43 K/uL (1.40-6.50); Neutrophils % (auto) 63.3 %; Platelet Count 233 K/uL (130-400); RDW Coefficient of Variation 13.2 % (11.5-14.5); RDW Standard Deviation 43.9 fL (36.4-46.3); Red Blood Count 3.65 M/uL (4.70-6.10); White Blood Count 8.59 K/ul (4.8-10.8)
[2023-01-14 05:33] LABS: BUN Creatinine Ratio 19.8 (10-20); Calcium 8.5 mg/dl (8.6-10.3); Creatinine Clr Calc Pharmacy 96.7 ml/min; Est GFR (African American) 95.3 ml/min; Est GFR (Non-African American) 82.2 ml/min; Potassium 3.8 mmol/L (3.5-5.1)
--- NOTE | 2023-01-14 07:42 | Hospitalist Progress Note ---
Date of Service January 14, 2023 Assessment & Plan (1) CVA (cerebral vascular accident): (2) Chronic back pain: (3) Gait abnormality: (4) Positive urine drug screen: (5) Anemia: (6) CAD (coronary artery disease): (7) Diabetes mellitus, type 2: (8) GERD (gastroesophageal reflux disease): (9) Hyperlipidemia: (10) Hypertension: (11) SIDDHARTHA (obstructive sleep apnea): (12) Depression: (13) Prosthetic joint infection: (14) History of pulmonary embolism: Plan Kareem Guan is 57 [id number] with a past medical history DM2, HLD, HTN, CAD s/p PCI w/ PADMINI x3, DDD s/p multiple lumbar surgeries with recent decompression 10/2022 for bacteremia, 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 CVA -Head CT suggestive of subacute ischemic stroke of R lateral frontal lobe, symptoms on ipsilateral side, Head/neck CTA negative for significant stenoses -Brain MRI = late acute infarct in the right frontal lobe with edema and enhancement -Suspect small vessel atherosclerotic vs central embolic CVA -Continue medical management for risk reduction; atorvastatin, BP control, aspirin daily -Neurology consulted, appreciate recommendations -Echocardiogram ordered; wnl -Stroke protocol- neuro checks -Speech consul; nothing further needed -PT/OT; home with walker vs acute rehab -Referrals placed to [facility]. Awaiting response. Chronic back pain -History of chronic back pain with multiple lumbar surgeries now having acutely worsening pain over 1 week, workup thus far not suggestive of acute pathology, including infection -Noted possible S1 screw loosening with postsurgical L1-L5 seroma formation on lumbar spine CT -Given pt's history of spinal surgery complicated by infection w/ bacteremia in past, will monitor back pain closely -Low threshold for repeat MRI imaging of spine -Continue home medications for pain control- amitriptyline, Flexeril, gabapentin, oxycodone -Scheduled Tylenol added Gait abnormality -Likely secondary to subacute stroke -PT/OT as above Positive UDS -UDS positive for MDMA and amphetamines -Pt's home medications include multiple which can cause false positive of the above -Reflex pending Anemia -Hgb 10.6 on admission -Normocytic anemia seemingly in pt's baseline range of 10-12 -Likely of chronic disease, no suspected bleeding at present -Monitor CBC daily CAD -Noted history of CAD s/p PCI with PADMINI x3 -No ACS at present, negative troponin and reassuring EKG -Continue Toprol, losartan, atorvastatin -Initiated aspirin as above HTN -BP stable -Continue losartan, metoprolol DMT2 -Well-controlled DM2 on metformin, HA1c 5.9% -Hold metformin -Lantus 5u BID, SSI -Repeat A1C in AM GERD -Continue Pepcid HLD -Continue atorvastatin 80 mg -Lipid panel pending in AM SIDDHARTHA -Not on CPAP at home Depression -Continue Paxil Prosthetic joint infection, chronic -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, following with ID -Continue prophylactic doxycycline Hx of PE -Noted history of such, apparently provoked given he is not on any anticoagulation currently -Lovenox SQ daily FENGI: Heart-healthy, DM2 diet Code status: Full DVT prophylaxis: Lovenox Isolation: None Disposition: Medical/surgical with telemedicine Admission and Anticipated Discharge Date Admission Date: January 11, 2023 Supervising Physician Co-Signing Physician Notes I personally examined the patient and verified all melgar points of history and exam, discussed case, and agree with decision making with Dr Santacruz awaiting insurance approval for rehab. saw twice today, sleeping soundly both times. Vitals noted, in general he is awake and alert pleasant no distress. HEENT normocephalic atraumatic mucous membranes moist. Breathing unlabored no accessory muscle use good effort. Skin shows no rashes no pallor or icterus. weaknessappears with hindsight to be due to subacute stroke and subsequent cerebral edema. Secondary risk reduction as current. Outpatient event monitor to screen for paroxysmal A-fib. Hopefully will be able to get him placed at rehab. Otherwise as above. Subjective Patient seen and examined at bedside. No acute events reported overnight. He notes he has been sleeping a lot, feels fatigued and some brain fog. Endorses ongoing sensation changes at his right face and lower extremity. He denies chest pain, shortness of breath, changes in bowel or bladder habits. Has been working with working PT and anticipates rehab placement. Review of Systems Review of Systems: As per above Physical Exam Constitutional: WD/WN, vitals as above Eyes: + anicteric sclerae; no conjunctival abn ormality ENMT: Ears: no external ear abnormality Nose: no external nose abnormality Moist mucous membranes Respiratory: normal respiratory effort, lungs clear to auscultation Cardiovascular: Rate/Rhythm: regular rate and regular rhythm Extremities: no edema Gastrointestinal (Abdomen): Inspection/Auscultation: abdomen normal to inspection; abdomen not distended Percussion/Palpation: abdomen soft; abdomen nontender Skin: no rashes, warm and dry Neurologic: Moves all limbs independently. CN 2-12 intact to testing. Decreased sensation at upper and lower right extremities. 4/5 strength of right LE Psychiatric: A+Ox3, euthymic affect Results & Data Results & Data Vital Signs (Past 12 Hours) Vital Signs Temp Pulse Pulse Resp BP Pulse Ox O2 Del Method 01/14/23 07:26 36.5 C 64 16 138/89 98 Room Air 01/14/23 03:55 36.5 C 55 L 14 130/76 95 Room Air 01/13/23 22:50 58 L 01/13/23 22:42 36.6 C 76 18 118/70 98 Room Air Resident Activity Tracking Resident Involvement: Resident Care Provided Care Provided: Adult Hospital Medicine (1) CVA (cerebral vascular accident) CVA mechanism: unspecified Qualified Code(s): I63.9 - Cerebral infarction, unspecified (2) Chronic back pain Back pain laterality: unspecified Back pain location: back pain in unspecified location Qualified Code(s): M54.9 - Dorsalgia, unspecified; G89.29 - Other chronic pain (6) CAD (coronary artery disease) Coronary Disease-Associated Artery/Lesion type: unspecified vessel or lesion type
[2023-01-14] MEDS: INSULIN ASPART PER UNIT CHARGE SC SCH ×4 (08:37→21:34)
[2023-01-14] MEDS: PARoxetine HCL 20 MG TAB PO SCH (08:47)
[2023-01-14] MEDS: FAMOTIDINE 20 MG TAB PO SCH ×2 (08:47→21:32)
[2023-01-14] MEDS: DOXYCYCLINE HYCLATE 100 MG CAP PO SCH ×2 (08:47→21:33)
[2023-01-14] MEDS: GABAPENTIN 300 MG CAP PO SCH ×2 (08:47→21:33)
[2023-01-14] MEDS: ASPIRIN 81 MG ECTAB PO SCH (08:48)
[2023-01-14] MEDS: LOSARTAN POTASSIUM 50 MG TAB PO SCH (08:48)
[2023-01-14] MEDS: ENOXAPARIN INJ 40 MG/0.4 ML SYR SQ SCH (08:48)
[2023-01-14] MEDS: METOPROLOL SUCC 25MG EXT REL TAB PO SCH (08:48)
[2023-01-14] MEDS: LANTUS PER UNIT CHARGE SQ SCH ×2 (08:49→21:32)
--- NOTE | 2023-01-14 18:55 | Billing Data ---
Date of Service January 14, 2023 Coding Level of Care Code 97009 SUB INP/OBS CARE
[2023-01-14 21:11] LABS: Babesia microti DNA Not Detected (Not Detected)
[2023-01-14] MEDS: MELATONIN 3 MG TAB PO SCH (21:32)
[2023-01-14] MEDS: ATORVASTATIN 40 MG TAB PO SCH (21:33)
[2023-01-14] MEDS: AMITRIPTYLINE HCL 100 MG TAB PO SCH (21:33)
[2023-01-15 04:22] LABS: Basophils # (auto) 0.06 K/uL (0.00-0.20); Basophils % (auto) 0.8 %; Eosinophils # (auto) 0.44 K/uL (0.00-0.50); Eosinophils % (auto) 5.5 %; Hematocrit (blood only) 34.1 % (42.0-52.0); Hemoglobin 11.6 g/dl (14.0-18.0); Immature Granulocytes # (auto) 0.04 K/uL (0.01-0.20); Immature Granulocytes % (auto) 0.5 %; Lymphocytes # (auto) 2.22 K/uL (1.20-3.40); Lymphocytes % (auto) 27.9 %; Mean Corpuscular Hemoglobin 29.8 pg (25.0-34.0); Mean Corpuscular Volume 87.7 fL (80.0-100.0); Mean Platelet Volume 10.2 fL (9.4-12.4); Monocytes # (auto) 0.76 K/uL (0.11-0.59); Monocytes % (auto) 9.6 %; Neutrophils # (auto) 4.43 K/uL (1.40-6.50); Neutrophils % (auto) 55.7 %; Platelet Count 218 K/uL (130-400); RDW Coefficient of Variation 13.2 % (11.5-14.5); RDW Standard Deviation 41.7 fL (36.4-46.3); Red Blood Count 3.89 M/uL (4.70-6.10); White Blood Count 7.95 K/ul (4.8-10.8)
[2023-01-15 04:57] LABS: Calcium 8.9 mg/dl (8.6-10.3)
[2023-01-15 05:03] LABS: BUN Creatinine Ratio 19.2 (10-20); Creatinine Clr Calc Pharmacy 93.5 ml/min; Est GFR (African American) 91.9 ml/min; Est GFR (Non-African American) 79.3 ml/min
--- NOTE | 2023-01-15 06:48 | Hospitalist Progress Note ---
Date of Service January 15, 2023 Assessment & Plan (1) CVA (cerebral vascular accident): (2) Chronic back pain: (3) Gait abnormality: (4) Positive urine drug screen: (5) Anemia: (6) CAD (coronary artery disease): (7) Diabetes mellitus, type 2: (8) GERD (gastroesophageal reflux disease): (9) Hyperlipidemia: (10) Hypertension: (11) SIDDHARTHA (obstructive sleep apnea): (12) Depression: (13) Prosthetic joint infection: (14) History of pulmonary embolism: Shelley Guan is 57 [id number] with a past medical history DM2, HLD, HTN, CAD s/p PCI w/ PADMINI x3, DDD s/p multiple lumbar surgeries with recent decompression 10/2022 for bacteremia, 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 Awaiting rehab placement at this time. CVA -Head CT suggestive of subacute ischemic stroke of R lateral frontal lobe, symptoms on ipsilateral side, Head/neck CTA negative for significant stenoses -Brain MRI = late acute infarct in the right frontal lobe with edema and enhancement -Suspect small vessel atherosclerotic vs central embolic CVA -Continue medical management for risk reduction; atorvastatin, BP control, aspirin daily -Neurology consulted, appreciate recommendations -Echocardiogram ordered; wnl -Stroke protocol- neuro checks -Speech consul; nothing further needed -PT/OT; home with walker vs acute rehab; pt elected rehab Chronic back pain -History of chronic back pain with multiple lumbar surgeries now having acutely worsening pain over 1 week, workup thus far not suggestive of acute pathology, including infection -Noted possible S1 screw loosening with postsurgical L1-L5 seroma formation on lumbar spine CT -Given pt's history of spinal surgery complicated by infection w/ bacteremia in past, will monitor back pain closely -Low threshold for repeat MRI imaging of spine -Continue home medications for pain control- amitriptyline, Flexeril, gabapentin, oxycodone -Scheduled Tylenol added Gait abnormality -Likely secondary to subacute stroke -PT/OT as above Positive UDS -UDS positive for MDMA and amphetamines -Pt's home medications include multiple which can cause false positive of the above -Reflex pending Anemia -Hgb 10.6 on admission -Normocytic anemia seemingly in pt's baseline range of 10-12 -Likely of chronic disease, no suspected bleeding at present -Monitor CBC daily CAD -Noted history of CAD s/p PCI with PADMINI x3 -No ACS at present, negative troponin and reassuring EKG -Continue Toprol, losartan, atorvastatin -Initiated aspirin as above HTN -BP stable -Continue losartan, metoprolol DMT2 -Well-controlled DM2 on metformin, HA1c 5.9% -Hold metformin -Lantus 5u BID, SSI -Repeat A1C in AM GERD -Continue Pepcid HLD -Continue atorvastatin 80 mg -Lipid panel pending in AM SIDDHARTHA -Not on CPAP at home Depression -Continue Paxil Prosthetic joint infection, chronic -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, following with ID -Continue prophylactic doxycycline Hx of PE -Noted history of such, apparently provoked given he is not on any anticoagulation currently -Lovenox SQ daily FENGI: Heart-healthy, DM2 diet Code status: Full DVT prophylaxis: Lovenox Isolation: None Admission and Anticipated Discharge Date Admission Date: January 11, 2023 Supervising Physician Co-Signing Physician Notes I personally examined the patient and verified all melgar points of history and exam, discussed case, and agree with decision making with Dr Bowling Feels like he has made progress and would rather go home and go to rehab. Vitals noted, in general he is awake and alert pleasant no distress. HEENT normocephalic atraumatic mucous membranes moist. Breathing unlabored no accessory muscle use good effort. Skin shows no rashes no pallor or icterus. weaknessappears with hindsight to be due to subacute stroke and subsequent cerebral edema. Secondary risk reduction as current. Outpatient event monitor to screen for paroxysmal A-fib. does appear to have made enough progress at home with outpatient therapy is reasonable. 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 Today, pt states that he is feeling well today, no questions or complaints at this time. No chest pain or SOB. Tolerating oral intake without issues. Review of Systems Review of Systems: As per above Physical Exam Physical Exam: General:Alert and oriented, no acute distress, comfortable HEENT: Normocephalic, moist oral mucosa, Cardio: Regular rate and rhythm, Resp:Lungs clear to auscultation b/l, Skin: Warm, pink, dry, Psych: Mood-affect congruence. Results & Data Results & Data Vital Signs (Past 12 Hours) Vital Signs Temp Pulse Pulse Resp BP Pulse Ox O2 Del Method 01/15/23 03:21 36.4 C L 60 18 160/95 H 95 Room Air 01/14/23 23:08 36.6 C 60 16 162/100 H 97 Room Air 01/14/23 22:01 61 01/14/23 19:10 36.7 C 59 L 16 154/97 H 99 Room Air Resident Activity Tracking Resident Involvement: Resident Care Provided Care Provided: Adult Hospital Medicine (1) CVA (cerebral vascular accident) CVA mechanism: unspecified Qualified Code(s): I63.9 - Cerebral infarction, unspecified (2) Chronic back pain Back pain laterality: unspecified Back pain location: back pain in unspecified location Qualified Code(s): M54.9 - Dorsalgia, unspecified; G89.29 - Other chronic pain (6) CAD (coronary artery disease) Coronary Disease-Associated Artery/Lesion type: unspecified vessel or lesion type
[2023-01-15] MEDS: PARoxetine HCL 20 MG TAB PO SCH (08:42)
[2023-01-15] MEDS: METOPROLOL SUCC 25MG EXT REL TAB PO SCH (08:42)
[2023-01-15] MEDS: GABAPENTIN 300 MG CAP PO SCH (08:43)
[2023-01-15] MEDS: ASPIRIN 81 MG ECTAB PO SCH (08:43)
[2023-01-15] MEDS: FAMOTIDINE 20 MG TAB PO SCH (08:43)
[2023-01-15] MEDS: DOXYCYCLINE HYCLATE 100 MG CAP PO SCH (08:43)
[2023-01-15] MEDS: LOSARTAN POTASSIUM 50 MG TAB PO SCH (08:44)
[2023-01-15] MEDS: ACETAMINOPHEN 500 MG TAB PO SCH ×2 (08:47)
[2023-01-15] MEDS: INSULIN ASPART PER UNIT CHARGE SC SCH ×2 (08:49→12:44)
[2023-01-15] MEDS: ENOXAPARIN INJ 40 MG/0.4 ML SYR SQ SCH (08:50)
[2023-01-15] MEDS: LANTUS PER UNIT CHARGE SQ SCH (08:53)
[2023-01-15] MEDS: oxyCODONE HCL IR 5 MG TAB (IMMEDIATE RELEASE) PO PRN (10:09)
--- NOTE | 2023-01-15 11:35 | Discharge Summary ---
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 Pt has had ongoing upper/lower back and neck pain intermittently along with some gait imbalance for few months with acute worsening over last week. He also experienced disorientation and unsteady gait 2 days prior while hunting which resolved after few minutes. He reports sudden R sided arm and leg weakness and numbness starting 1 day prior. Disorientation again occurred evening of admission which prompted arrival to ED. Pt arrived to ER hemodynamically stable. Initial evaluation significant for Hgb 10.6, CRP 1.4, negative troponin, negative tickborne panel, UDS positive for amphetamines and MDMA. Cervical spine CT negative. Head/neck CTA negative. Thoracic spine CT negative. Lumbar spine CT significant for soft tissue swelling over L1-L5 possibly representing postsurgical seroma and possible S1 screw loosening. Head CT significant for wedge-shaped area of loss of hudson-white matter involving right lateral frontal region concerning for developing ischemia without hemorrhage or mass effect. ER interventions include 1L NSS bolus, Tylenol 1000 mg IV, Solumedrol 125 mg and Benadryl 25 mg IV for contrast allergy. At present, pt reports continued fatigue, R sided weakness and numbness. No new symptoms. 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 Admission Exam Per Admitting Provider General: tired-appearing, no acute distress HEENT: PERRL, EOMI, conjunctivae clear without injection, anicteric sclerae, mildly dry mucous membranes, clear oropharynx without exudate or erythema Neck: supple, trachea midline, no thyromegaly, no JVD, no cervical lymphadenopathy CV: RRR, normal S1 and S2, no murmurs Resp: CTAB, no increased work of breathing, no crackles or wheezes Abd: Soft, nontender, nondistended, no guarding or rebound, no h epatosplenomegaly MSK: Normal bulk of all four extremities Neuro: AOx3, noted RUE + RLE 4+/5 strength compared to LUE/LLE, diminished sensorium diffusely of RLE and RUE compared to L, CN 2-12 intact except for CN8 reduced on R compared to L and reduced sensorium along R CNV3 distribution. Gait not assessed. No dysmetria on cerebellar tasks. No pronator drift or facial droop. Skin: no rashes or lesions, warm and dry Ext: no LE peripheral edema or erythema, capillary refill <2s in all four extremities, 2+ LE peripheral pulses b/l Principal Diagnosis Stroke/ CVA Discharge Exam General:Alert and oriented, no acute distress, comfortable HEENT: Normocephalic, moist oral mucosa, Cardio: Regular rate and rhythm, Resp:Lungs clear to auscultation b/l, Skin: Warm, pink, dry, Psych: Mood-affect congruence. Discharge Data Allergies Allergy/AdvReac Type Severity Reaction Status Date / Time shellfish derived Allergy Severe Throat Verified 01/10/23 22:03 swelling tramadol Allergy Intermediate Hives, Verified 01/10/23 22:03 dizziness, nausea Consultations 01/11/23 03:26 ED Decision to Admit Stat 01/11/23 05:00 Consult Neurology Routine Ordered Studies 01/10/23 22:11 CT angio head w con Stat CT angio neck with con Stat CT cervical spine wo con Stat CT head/brain wo con Stat CT lumbar spine wo con Stat CT thoracic spine wo con Stat 01/11/23 04:12 MRI Brain [MR brain wo/w con] Stat Hospital Course (1) CVA (cerebral vascular accident): (2) Chronic back pain: (3) Gait abnormality: (4) Positive urine drug screen: (5) Anemia: (6) CAD (coronary artery disease): (7) Diabetes mellitus, type 2: (8) GERD (gastroesophageal reflux disease): (9) Hyperlipidemia: (10) Hypertension: (11) SIDDHARTHA (obstructive sleep apnea): (12) Depression: (13) Prosthetic joint infection: (14) History of pulmonary embolism: Shelley Guan is 57 [id number] with a past medical history DM2, HLD, HTN, CAD s/p PCI w/ PADMINI x3, DDD s/p multiple lumbar surgeries with recent decompression 10/2022 for bacteremia, 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 Pt wanting to go home and do outpatient PT. Feel this is totally reasonable at this time and pt is stable for D/C. CVA -Head CT suggestive of subacute ischemic stroke of R lateral frontal lobe, symptoms on ipsilateral side, Head/neck CTA negative for significant stenoses -Brain MRI = late acute infarct in the right frontal lobe with edema and enhancement -Continue medical management for risk reduction; atorvastatin, BP control, aspirin daily -Neurology consulted, appreciate recommendations -Echocardiogram ordered; wnl -Speech consul; nothing further needed -PT/OT; home with outpatient PT vs acute rehab - pt to get outpatient 30 day event monitor to evaluate for arrhythmia Chronic back pain -History of chronic back pain with multiple lumbar surgeries now having acutely worsening pain over 1 week, workup thus far not suggestive of acute pathology, including infection -Noted possible S1 screw loosening with postsurgical L1-L5 seroma formation on lumbar spine CT -Given pt's history of spinal surgery complicated by infection w/ bacteremia in past, will monitor back pain closely -Low threshold for repeat MRI imaging of spine -Continue home medications for pain control- amitriptyline, Flexeril, gabapentin, oxycodone -Scheduled Tylenol added Gait abnormality -Likely secondary to subacute stroke -PT/OT as above Positive UDS -UDS positive for MDMA and amphetamines -Pt's home medications include multiple which can cause false positive of the above -Reflex pending Anemia -Hgb 10.6 on admission -Normocytic anemia seemingly in pt's baseline range of 10-12 -Likely of chronic disease, no suspected bleeding at present -Monitor CBC daily CAD -Noted history of CAD s/p PCI with PADMINI x3 -No ACS at present, negative troponin and reassuring EKG -Continue Toprol, losartan, atorvastatin -Initiated aspirin as above HTN -BP stable -Continue losartan, metoprolol DMT2 -Well-controlled DM2 on metformin, HA1c 5.9% -Hold metformin -Lantus 5u BID, SSI -Repeat A1C in AM GERD -Continue Pepcid HLD -Continue atorvastatin 80 mg -Lipid panel pending in AM SIDDHARTHA -Not on CPAP at home Depression -Continue Paxil Prosthetic joint infection, chronic -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, following with ID -Continue prophylactic doxycycline Hx of PE -Noted history of such, apparently provoked given he is not on any anticoagulation currently -Lovenox SQ daily FENGI: Heart-healthy, DM2 diet Code status: Full DVT prophylaxis: Lovenox Isolation: None Total Time Total Time Spent Total Time Spent (In Minutes): As per attending attestation. Discharge Plan Discharge Items Patient Disposition: Home - Self-Care Reason For Visit: STROKE Discharge Diagnosis: Stroke/CVA Activity: Per Instructions section Non-emergency contact: Primary Care Provider and Neurologist Call non-emergency contact if: you have any medication questions Follow-up/Referrals: Roberto Esposito [Primary Care Provider] - 01/22/23 2:05 pm Diet: Heart Healthy Addtl Attending Provider Instructions: You were admitted for stroke/CVA. You were monitored and treated with medications to reduce your risk of a subsequent stroke. We feel it is safe for you to return home at this time at this time with outpatient continuation of physical therapy. Medications: Your medication list has been reviewed and reconciled upon discharge to ensure accuracy and continuity of care. An updated list of all your medications is included with your hospital discharge paperwork. Please review this list closely, and make note of any changes. We sent a new medication called Aspirin to your pharmacy. Take Aspirin 81 mg daily. You can also purchase aspirin [id number]. It is very important to continue your metoprolol, atorvastatin, and losartan and follow-up with cardiology. If you have any issues filling these prescriptions, please call [phone] and ask to leave a message for Dr. Bowling. Take your medications as instructed; do not skip a dose of your medicines. Make sure all of your doctors know every medicine you are taking (including tacl-yyw-qphmdes medicines, vitamins, and supplements). Call your primary care provider before taking any new medicines (including over- the-counter medicines, vitamins, and supplements), because some of these may interact with your current medications, or may make your symptoms worse. Tell your primary care provider if you cannot afford your medications. Activity: You can do normal everyday activities as your body allows. Take rest breaks if you feel tired. Do not overexert. Stop activity if you have pain, shortness of breath or feel dizzy. Follow-up appointments: Make an appointment with your primary care physician within one week of discharge. A copy of this summary will be sent to them. Every time you see your primary care physician, or any other doctor, bring your medication list, and a list of questions. One of our nurse navigators will reach out to you about getting a 30-day heart monitor. This is very important to keep on top of, as a monitor may give further insight into how the stroke occurred and further management needed to avoid future strokes. Please follow-up with outpatient physical therapy to continue to build strength and balance after the stroke. CONTACT YOUR PRIMARY CARE PROVIDER if you experience any of the following: Shortness of breath or difficulty breathing Swelling of your feet, ankles, hands or abdomen Feeling tired with normal activity or experiencing dizziness or fainting Difficulty following your treatment plan, or difficulty taking medications CALL 911 OR GO TO THE EMERGENCY DEPARTMENT if you experience any of the following: Severe abdominal pain or nausea/vomiting Severe chest pain, or chest pain that radiates (moves) to your jaw or arm Sudden, severe shortness of breath or difficulty breathing Sudden weakness or difficulty speaking Thank you for allowing us to participate in your care. Pending Studies at Discharge: No Stand-Alone Forms: [facility] FIA Formula E, Smoking Cessation, Medications to Prevent Stroke Medications and DC Order Prescriptions: New aspirin 81 mg Tablet,Delayed Release (Dr/Ec) 81 mg PO DAILY Qty: 60 6RF Continued atorvastatin [Lipitor] 80 mg Tablet 80 mg PO HS famotidine [Pepcid] 20 mg Tablet 20 mg PO BID amitriptyline 100 mg Tablet 100 mg PO HS metoprolol succinate [Toprol XL] 25 mg Tablet Extended Release 24 Hr 25 mg PO QAM metformin 1,000 mg Tablet 1,000 mg PO BID cyclobenzaprine 10 mg Tablet 10 mg PO TID PRN (Reason: muscle spasm) Qty: 15 0RF doxycycline monohydrate 100 mg capsule 100 mg PO BID gabapentin 300 mg capsule 300 mg PO BID losartan 100 mg tablet 100 mg PO QAM oxycodone 5 mg tablet 5 mg PO Q6 PRN (Reason: Pain) melatonin 10 mg Tablet 10 mg PO HS paroxetine HCl [Paxil] 30 mg Tablet 30 mg PO QAM Discharge Orders: Discharge Order (Routine); Ordered 01/15/23 Ordered By: Chelsie Bowilng Admission Data Admit Date/Time: 01/11/23 04:20 Attending Provider: Ash Hart Admit Provider: Servando Rush Primary Care Provider: Roberto Esposito Other Providers: Kinza Lemons; Pratik Rivera; Bartolo Dunne; Ana Rosario; Linn Johnson; Nora Gibbons; Colt Gregg; Elias Lee; [facility]; [place] Other Interventions: Discharge Summary Assessment (RN) Last Done: 01/15/23 13:31 Supervising Physician Co-Signing Physician Notes I personally examined the patient and verified all melgar points of history and exam, discussed case, and agree with decision making with Dr Bowling Feels like he has made progress and would rather go home and go to rehab. Vitals noted, in general he is awake and alert pleasant no distress. HEENT normocephalic atraumatic mucous membranes moist. Breathing unlabored no accessory muscle use good effort. Skin shows no rashes no pallor or icterus. weaknessappears with hindsight to be due to subacute stroke and subsequent cerebral edema. Secondary risk reduction as current. Outpatient event monitor to screen for paroxysmal A-fib. does appear to have made enough progress at home with outpatient therapy is reasonable. Resident Activity Tracking Resident Involvement: Resident Care Provided Care Provided: Adult Hospital Medicine
[2023-01-15 15:33] LABS: Amphetamine Urine, Confirm 580 ng/mL (<250); MDA negative; MDEA negative; MDMA (Ecstasy) Urine, Confirm negative; Methamphetamine, Ur Confirm 10463 ng/mL (<250)
--- NOTE | 2023-01-15 19:58 | Billing Data ---
Date of Service January 15, 2023 Coding Level of Care Code 21683 IN/OBS DISCH 30 MIN/LESS
[2023-01-15 21:48] LABS: Q Fever IgG, Phase I NEGATIVE; Q Fever Phase I IgM Antibody NEGATIVE; Q Fever Phase II IgG Antibody NEGATIVE; Q Fever Phase II IgM Antibody NEGATIVE; R. typhi IgG Ab NOT DETECTED; R. typhi IgM Ab NOT DETECTED; RMSF IgG Ab NOT DETECTED; RMSF IgM Ab NOT DETECTED
--- OUTSIDE RECORDS SUMMARY | 2023-01-17 08:01 | External Medical Summary | Continuity of Care Document ---
Author Name Unknown Organization [address] Address [address] [place] [phone] Care Team Providers Care High Pressure Operator Name Role Phone Kannan Esposito Primary Care Physician [phone] Encounter [facility] [id number] Date(s): 11/14/22 - 11/14/[address] [facility] [address], [address] [place] [address] [phone] Encounter Diagnosis Body mass index [BMI] 34.0-34.9, adult(Discharge Diagnosis) - 11/14/22 Chronic back pain(Discharge Diagnosis) - 11/14/22 Status post lumbar spine surgery for decompression of spinal cord(Discharge Diagnosis) - 11/14/22 Discharge Disposition: Home or Self Care Attending Physician: Angela Malloy DO, Mariana Annette Referring Physician: Angela Malloy DO, Mariana Annette Allergies, Adverse Reactions, Alerts Substance Reaction Severity Status shellfish swelling in the throat Activ e traMADol Active Assessment and Plan Extracted from: Title:Office Visit Note Author:Angela Malloy DO, Mariana Annette Date:11/14/22 1.Chronic back pain 2.Status post lumbar spine surgery for decompression of spinal cord Appears to be recovering well. Discussed monitoring S&S of infection. Pt aware. Still having some pain despite oxydocone 10mg. Recommended to take tylenol 1000mg Q6H scheduled to help keep pain level down. Handicapped placard form filled and given to patient. Immunizations Given and Recorded Vaccine Date Status Refusal Reason tetanus/diphtheria/pertuss, acel (Tdap) 04/06/18 G iven Medications amitriptyline 100 mg oral tablet Start: 10/11/22 9:29:00 EDT, See Instructions, Disp# 30 tab, Refills: 5, TAKE 1 TABLET BY MOUTH AT BEDTIME, Pharmacy: [id number] Start Date: 10/11/22 Status: Ordered atorvastatin 80 mg oral tablet Start: 10/31/22 9:11:00 EDT, See Instructions, Disp# 30 tab, Refills: 0, TAKE 1 TABLET BY MOUTH ONCE DAY FOR 30 DAYS , Pharmacy: [id number] Start Date: 10/31/22 Status: Ordered cyclobenzaprine 10 mg oral tablet Start: 06/21/22 9:18:00 EDT, 1 tab, PO, tid, Disp# 45 tab, Refills: 1, PRN: as needed for spasm, Pharmacy: [id number] Start Date: 06/21/22 Status: Ordered doxycycline monohydrate 100 mg oral capsule Start: 09/06/22 15:01:00 EDT, 1 cap, PO, bid Start Date: 09/06/22 Status: Ordered famotidine 20 mg oral tablet Start: 11/04/22 13:35:00 EDT, See Instructions, Disp# 60 tab, Refills: 5, TAKE 1 TABLET BY MOUTH TWICE DAILY, Pharmacy: [id number] Start Date: 11/04/22 Status: Ordered gabapentin 100 mg oral capsule Start: 10/15/22 16:51:00 EDT, 3 cap, PO, qid, Disp# 360 cap, Refills: 0, Pharmacy: [id number] Start Date: 10/15/22 Stop Date: 11/14/22 Status: Ordered levothyroxine 25 mcg (0.025 mg) oral tablet Start: 09/06/22 15:51:00 EDT, 1 tab, PO, Daily, Disp# 30 tab, Refills: 1, Pharmacy: [id number] Start Date: 09/06/22 Stop Date: 11/05/22 Status: Ordered losartan 100 mg oral tablet Start: 08/14/22 13:05:00 EDT, 1 tab, PO, Daily, Disp# 30 tab, Refills: 3, Pharmacy: [id number] Start Date: 08/14/22 Stop Date: 12/12/22 Status: Ordered metFORMIN 1000 mg oral tablet Start: 11/04/22 13:35:00 EDT, 1 tab, PO, bid, Disp# 60 tab, Refills: 5, Pharmacy: [id number] Start Date: 11/04/22 Stop Date: 05/03/23 Status: Ordered Metoprolol Succinate ER 25 mg oral tablet, extended release Start: 10/31/22 9:11:00 EDT, See Instructions, Disp# 30 tab, Refills: 0, TAKE 1 TABLET BY MOUTH ONCE DAILY, Pharmacy: [id number] Start Date: 10/31/22 Status: Ordered nitroglycerin 0.4 mg sublingual tablet Start: 09/24/17 16:58:38 EDT, See Instructions, Disp# 100 tab, Refills: 2, Place 1 tablet under thetongue every 5 minutes as needed for chest pain up to a maximum of 3 tablets, Pharmacy: [id number] Start Date: 09/24/17 Status: Ordered oxyCODONE 10 mg oral tablet Start: 10/23/22 8:04:00 EDT, 10 mg =, PO, tid, Disp# 30 tab, Refills: 0, Note to Pharmacy: One timetemp increase for post-op pain pending f/u with Dr. Christensen, PRN: Pain, Pharmacy: [id number] Start Date: 10/23/22 Stop Date: 11/02/22 Status: Ordered oxyCODONE 10 mg oral tablet Start: 09/18/22 12:35:00 EDT, 10 mg =, PO, tid, Disp# 30 tab, Refills: 0, Note to Pharmacy: One time temp increase for post-op pain pending f/u with Dr. Christensen, PRN: Pain, Pharmacy: [id number] Start Date: 09/18/22 Stop Date: 09/28/22 Status: Ordered PARoxetine 30 mg oral tablet Start: 11/04/22 13:35:00 EDT, See Instructions, Disp# 30 tab, Refills: 5, TAKE 1 TABLET BY MOUTH ONCE DAILY, Pharmacy: [id number] Start Date: 11/04/22 Status: Ordered Mental Status 11/14/22 Barriers to Learning one year None evide nt Mandatory Health Literacy Documentation Yes Health Literacy Communication Barriers N ever Primary Language Bulgarian Problem List Condition Confirmation Course Effective Dates Status H ealth Status Informant Anterior knee pain Confirmed Active Chronic back pain Confirmed Active Coronary arteriosclerosis Confirmed Active Diabetes mellitus Confirmed Active Former tobacco use Confirmed Active Family history of pancreatic cancer Confirmed Active Family history of gallbladder disease in father Confirmed Active Gastritis Confirmed Active GERD (gastroesophageal reflux disease) Confirmed Active S/P total knee arthroplasty Confirmed Active History of Perthes disease Confirmed Active History of - myocardial infarction Confirmed Active HLD (hyperlipidemia) Confirmed Active Hypertensive disorder Confirmed Active HTN (hypertension) Confirmed Active Infection of prosthetic shoulder joint Confirmed Active Low back pain Confirmed Active Right shoulder pain Confirmed Active History of cigarette smoking Confirmed Active Weight disorder Confirmed Active Diagnosis Diagnosis Type Effective Dates Health Status Clinical Service Informant Body mass index [BMI] 34.0-34.9, adult Discharge Diagnosis 11/14/22 Non-Specified Chronic back pain Discharge Diagnosis 11/14/22 Status post lumbar spine surgery for decompression of spinal cord Discharge Diagnosis 11/14/22 Procedures Procedure Date Related Diagnosis Body Site Status Spinal stenosis of lumbar region 1 10/29/22 Completed Reverse total shoulder arthroplasty 2 05/29/22 Completed Debridement 3 05/07/22 Completed Decompression - action 4 04/26/22 Completed Arthroplasty of shoulder 5 10/04/21 Completed Hip X-ray right 6 10/13/20 Complet ed LAT LUMBAR SPINE FUSION 10/04/20 C ompleted Plain X-ray of lumbar spine 7 10/04/20 Completed MRI of lumbar spine without IV contrast 8 07/10/20 Completed MRI of thoracic spine withou t contrast 9 07/10/20 Completed Plain X-ray of lumbar spine 10 07/05/20 Completed X-ray of cervical spine 11 07/05/20 Completed X-ray of thoracic spine 12 07/05/20 Completed Removal of Spinal Hardware 13 04/26/20 Completed Chest x-ray 14 05/06/19 Completed X-ray 15 03/31/18 Completed Colonoscopy 16, 17 06/24/17 Comple manju US EXAM ABDOM COMPLETE 18 01/06/17 Completed Esophagogastroduodenoscopy 19, 20 11/28/16 Completed Cardiac catheterisation 21 06/28/16 Completed Colonoscopy 22 06/14/16 Completed CXR - Chest X-ray 23 11/29/14 Comp leted Ultrasound--abdomen 24 06/27/14 Co mpleted Primary fusion of cervical spine 25 Completed Stent placement 26, 27 Co mpleted Total replacement of right knee joint Completed 1#1 removal of posterior instrumentation L3-Sl. #2 exploration of fusion L3-Sl. #3 lumbar decompression bilaterally vasectomies and foraminotomies Ll-L2 L2-L3. #4 posterior spinal fusion L2-3 #5 posterior instrumentation L2-Sl. #6 interbody fusion L2-L3. #7 placement 14 x 26 mm cage atL2-L3. #8 placement locally harvested morselized autograft and posterior gutters. #9 placement I factor in the interbody space and infuse in the posterior lateral gutters 2One stage revision of right Reverse Total Shoulder with component Removal, Irrigation and debridement, and reimplantation of right Reverse total shoulder arthroplasty. 3Irrigation debridement of lumbar hematoma. 4L3-4 and L5-S1 Decompression and fusion, spinal cord monitoring. 5Right reverse total arthroplasty. 6no acute bony abnormality is identified 7Impression: Fluoroscopy provided for L4-L5 posterior decompression and fusion 8Impression: 1. There is diffuse narrowing of the central canal which is likely on a developmental basis. There is no large disc herniation of significant acquired compromise of the central canal 2. Mild spondylotic change as above. See discussion for detailed level by level analysis 3. No destructive bony process is identified 9Impression: 1. No acute thoracic spine fracture. No suspicious marrow replacement. 2. Moderate size broad based central disc protrusion at T9-T10 that indents the ventral aspect of the cord and results in moderate to severe central canal stenosis. No definite cord signal abnormality. 3. Multiple additional smaller disc protrusions, as described above. 10Impression: 1. No acute fractures or subluxations 2. degnerative changes 11Impression: 1. No fracture or subluxation within the Cervical spine 2. Alignment remains intact throughout flxion and extension 3. Straightening of Cervical spine likely secondary to the C4-C7 ACDF 4. Severe degnerative disc disease at C3-C4 5. Mild or neural foraminal narrowing as described. see scanned report 12Impression: 1. No acute thoracic spine fracture or subluxation 2. Mild multlevel degenerative disc disease within the thoracic spine 13Removal of hardware L4-5 14[facility] Impression: 1. No active disease in the chest 15xr chest 2v routine no active disease in chest. 16One 4mm polyp in the rectum, removed with a cold snare. Resected and retrieved. 17Pathology: Rectal polyp, polypectomy: tubular adenoma. Repeat colonoscopy in five years. 181. no acute sonographic abnormality is identified 2. hepatic steatosis 19normal esophagus, stomach, duodenum. no specimens collected. 201) normal esophagus 2) normal stomach 3) normal examined duodenum 4) no specimens collected 21Angiographically normal coronary arteries. Normal left ventricuogram. Previous complex bifurcating stents remain widely patent. 22One 15 mm polyp in the transverse colon, removed with a hot snare. Resected and retrieved. Clips (MR conditional) were placed. One 14 mm polyp at 30 cm proximal to the anus, removed with a hot snare. Resected and retrieved. Clip (MR conditional) was placed. Await pathology. 23No active disease in the chest. 241) no gallstones or biliary ductal dilatation 2) fatty infiltration of the liver 3) suspected left-sided parapelvic cysts 4) normal caliber abdominal aorta 25c3 c4 c5 26x 3 273 seperate episodes Vital Signs Most recent to oldest [Reference Range]: 1 Height 180 cm (11/14/22 8:13 AM) Patient Weight 112.4 kg (11/14/22 8:13 AM) Body Mass Index 34.69 kg/m2 (11/14/22 8:13 AM) Heart Rate 97 bpm (11/14/22 8:13 AM) Respiratory Rate 18 br/min (11/14/22 8:13 AM) Blood Pressure 144/80mmHg (11/14/22 8:13 AM) BP Location # 1 Left Arm (11/14/22 8:13 AM) Social History Social History Type Response Tobacco Former smoker, Cigar ettes, 28 per day. Started age 18 Years. Stopped age 46 Years. Smoking Status Never smoked cigaret ashley Sex FCM Outpt Note * Angela Malloy DO, Mariana Annette: PERFORM Event Display: [facility] Outpt Note Authored Date: [id number] Chief Complaint [facility] decompression surgery, still sore. History of Present Illness Patient presents for follow up after surgery He underwent an L2-L3 decompression on 10/29/22by Dr. Salinas [facility]. He is managing pain with oxycodone 10mg Q6H, still having some pain. Takes tylenol occasionally. Having some back pain and leg pain, but denies any fevers or chills. His is monitoring his wounds for any redness. Saw surgeon yesterday. States not recommended to do PT yet. Requesting a handicapped placard for his car as his temporary one is expiring soon. Physical Exam Vitals & Measurements HR:97(Monitored) RR:18 BP:144/80 SpO2:97% HT:180cm WT:112.400kg(Dosing) WT:112.4kg BMI:34.69 PHQ2 Data(Data Documented on:11/14/2022 08:13) Emotional health assessment NEGATIVE General: _Alert and oriented, No acute distress Cardiovascular: _Normal rate, Regular rhythm, No murmur, No gallop. Respiratory: _Lungs are clear to auscultation, Respirations are non-labored, Breath sounds are equal Psych: Mood-affect congruence. Speech is of normal pace and content Assessment/Plan 1.Chronic back pain 2.Status post lumbar spine surgery for decompression of spinal cord Appears to be recovering well. Discussed monitoring S&S of infection. Pt aware. Still having some pain despite oxydocone 10mg. Recommended to take tylenol 1000mg Q6H scheduled to help keep pain level down. Handicapped placard form filled and given to patient. Attestation Time spent: Pre-visit plannin [id number] visit: 35 Post-visit (orders/documentation/coordination of care):5 Total visit time: 45 Problem List/Past Medical History Ongoing Anterior knee pain Chronic back pain Coronary arteriosclerosis Diabetes mellitus Family history of gallbladder disease in father Family history of pancreatic cancer Former tobacco use Gastritis GERD (gastroesophageal reflux disease) History of - myocardial infarction History of cigarette smoking History of Perthes disease HLD (hyperlipidemia) HTN (hypertension) Hypertensive disorder Infection of prosthetic shoulder joint Low back pain Right shoulder pain S/P total knee arthroplasty Weight disorder Historical History of opioid abuse Lateral epicondylitis Osteoarthritis of knee Tobacco user Tobacco user Procedure/Surgical History Spinal stenosis of lumbar region (10/29/2022)Reverse total shoulder arthroplasty (05/29/2022)Debridement (05/07/2022)Decompression - action (04/26/2022)Arthroplasty of shoulder (10/04/2021)Hip X-ray right (10/13/2020)Plain X-ray of lumbar spine (10/04/2020)LAT LUMBAR SPINE FU YOON (10/04/2020)MRI of thoracic spine without contrast (07/10/2020)MRI of lumbar spine without IV contrast (07/10/2020)X-ray of cervical spine (07/05/2020)Plain X-ray of lumbar spine (07/05/2020)X-ray of thoracic spine (07/05/2020)Removal of Spinal Hardware (04/26/2020)Chest x-ray (05/06/2019)X-ray (03/31/2018)Colonoscopy (06/24/2017)US EXAM ABDOM COMPLETE (01/06/2017)Esophagogastroduodenoscopy (11/28/2016)Cardiac catheterisation (06/28/2016)Colonoscopy (06/14/2016)CXR - Chest X-ray (11/29/2014)Ultrasound--abdomen (06/27/2014)Primary fusion of cervical spineTotal replacement of right knee jointStent placement Medications amitriptyline(amitriptyline 100 mg oral tablet), See Instructions, 5 refills aspirin(aspirin 81 mg oral capsule), 81 mg= 1 cap, PO, Daily, 3 refills atorvastatin(atorvastatin 80 mg oral tablet), See Instructions cyclobenzaprine(cyclobenzaprine 10 mg oral tablet), 10 mg= 1 tab, PO, tid, PRN, 1 refills DOBUTamine 250 mg + Dextrose 5% in Water 250 mL(DOBUTamine 250 mg + dextrose 5% (normalized drips) 250 mL), 250 mL, mL, titrate, Order Calculation Weight: 100 kg, IV Drip, Routine, 10/23/22 16:25:00 EDT, 30 day, Hard Stop, 11/22/22 16:24:00 EDT, 10/23/22 16:25:00 EDT doxycycline(doxycycline monohydrate 100 mg oral capsule), 100 mg= 1 cap, PO, bid famotidine(famotidine 20 mg oral tablet), See Instructions, 5 refills gabapentin(gabapentin 100 mg oral capsule), 300 mg= 3 cap, PO, qid levothyroxine(levothyroxine 25 mcg (0.025 mg) oral tablet), 25 mcg= 1 tab, PO, Daily, 1 refills losartan(losartan 100 mg oral tablet), 100 mg= 1 tab, PO, Daily, 3 refills metFORMIN(metFORMIN 1000 mg oral tablet), 1000 mg= 1 tab, PO, bid, 5 refills metoprolol(Metoprolol Succinate ER 25 mg oral tablet, extended release), See Instructions nitroglycerin(nitroglycerin 0.4 mg sublingual tablet), See Instructions, 2 refills oxyCODONE(oxyCODONE 10 mg oral tablet), 10 mg, PO, tid, PRN oxyCODONE(oxyCODONE 10 mg oral tablet), 10 mg, PO, tid, PRN PARoxetine(PARoxetine 30 mg oral tablet), See Instructions, 5 refills Allergies shellfishswelling in the throat traMADol Social History Smoking Status Never smoked cigarettes Alcohol - Low Risk Type:Beer Frequency:1-2 times per week Average drinks per episode in last year:1 Substance Abuse - Denies Substance Abuse Tobacco - Denies Tobacco Use Use:Former smoker Type:Cigarettes Tobacco use per day:28 Started at age:18Years Stopped at age:46Years Family History Cholecystectomy: Father. Cigarette smoker: Mother. Factor V deficiency: Unknown. Hypertension: Father. Lung cancer: Mother. Pancreatic cancer..: Father. Health Status Family Member(s) Immunizations Vaccine Date Status tetanus/diphtheria/pertuss, acel (Tdap) 04/06/2018 Given Recommendations Health Maintenance Pending(in the next year) OverDue Adult Influenza Vaccine due09/07/22and every 1year Due Adult COVID-19 Vaccination due11/14/22Unknown Frequency Pneumococcal Vaccine Adults and Adolescents with Chronic Illness due11/14/22One-time only Shingles Vaccine due11/14/22One-time only Due In Future Diabetic Eye Exam not due until05/10/23and every 2year Diabetes Management A1c not due until08/28/23and every 1year Body Mass Index not due until11/14/23and every 1year Satisfied(in the past 1 year) Satisfied Body Mass Index on11/14/22.Satisfied by GAEL Su Cassidy Diabetes Management A1c on08/28/22.Satisfied by Contributor_system, [email or web address] Electronic Signature on File Electronically Reviewed/Signed by: Angela Malloy DO Author Signature Dt/Tm:11/14/2022 08:46 AM Department of Family Medicine [facility] Patient Care team information Care Team Personnel Name: MD Vaibhav, Kannan Amaro Position: Physician Member Role: Primary Care Provider Address: Address: [address] [place] [address], [place] [address] Care Team Related Persons Name: JAGRUTI JURADO Address: home [address], [place] [phone] Name: JAGRUTI JURADO Address: [place] Address: home [address] [facility], [phone]
[2023-01-17 15:08] LABS: Ehrlichia chaff DNA Bld Negative (Negative)
== END 2023-01-15 15:54 | disposition home or self-care (01) | DRG 64 ==
LOC: ED 20:11 → SUATTDRO 01-11 04:20 → EDINP 01-11 04:20 → 2W 01-11 05:03

== ENCOUNTER 2023-02-05 11:10 | Observation (INO) ==
--- NOTE | 2023-02-05 11:46 | Emergency Department Note ---
Impression & Plan Numbness, Hypertension, History of CVA (cerebrovascular accident), Anemia, Headache ED Provider Note NAME: LISA JURADO AGE: 57 SEX: M : 1965 ARRIVES VIA: Ambulance INFORMANT: Patient, ED PROVIDER(S): Jaime Staples MD CHIEF COMPLAINT: Headache, numbness MEDICAL DECISION MAKING: Patient presented due to concern for head pressure as well as global paresthesias in the setting of recent right frontal stroke. IV was established but was obtained patient was treated for his headache. The patient was noted to be hypertensive and has not taken his morning blood pressure medications the patient was ordered his home dose metoprolol as well as losartan. Patient's blood work is really unremarkable. CT head does show the area of encephalomalacia from his prior infarct. Upon reassessment the patient still had some headache with blood pressure improved. I did speak with case management to discuss the possibility of placement which is unable to be completed at this time. The patient does require an inpatient stay in order to go to rehab. I did speak with the hospitalist service Dr. Laureano and the patient was admitted to the medicine service. Discussion w/ other healthcare providers: Dr. Laureano inpatient medicine service Prior /Outside records reviewed: I reviewed a discharge summary from [facility]. Known history of type 2 diabetes hyperlipidemia hypertension CAD status post PCI with PADMINI x 3 history of infected prosthesis and chronic antibiotic prophylaxis depression PE and SIDDHARTHA. Patient was seen at that time due to concern for right-sided weakness and numbness. Patient was noted to have a head CT suggestive of subacute ischemic stroke of the right lateral frontal lobe. Brain MRI shows late acute infarct right frontal lobe with edema and enhancement. Was recommended for atorvastatin blood pressure control and aspirin daily. Echocardiogram reportedly was within normal limits. Patient is on chronic prophylactic doxycycline for history of infected prosthetic joint. Per review of the chart states that history of PE likely provoked as the patient is not on any chronic anticoagulation therapy. Differential diagnosis: Infection, dehydration, metabolic abnormality, hypo/hyperglycemia, electrolyte imbalance, anemia, UTI, pneumonia, thyroid dysfunction among others were considered. Diagnostics, as interpreted by me: ECG: Normal sinus rhythm, rate of 81, normal NJ and QRS, normal axis no ST elevations. Cardiac monitoring: An order was placed for continuous cardiac monitoring. The monitor shows a rate of 82 with sinus rhythm. Patient was placed on pulse oximetry Medical decision rules: None Imaging studies: I informally interpreted the patient's CT of the head which does show encephalomalacia of the right frontal with formal report to follow. I informally interpreted the patient's chest x-ray which does not show obvious pneumonia or pneumothorax. Formal report to follow. HPI: Patient presents due to concern for increasing sleepiness headache as well as paresthesias. The patient states that he did have a recent stroke states that he has been compliant with his medications although did not take them prior to presenting this morning. Patient denies any chest pains or shortness of breath but has had some global headache. Patient states that sometimes this will start in the front and then moved to the back. Sometimes he will develop sharp twinges of pain. The also provides some additional history and states that he will twitch and is unable to sleep. Although over the last 4 to 5 days while he was out hunting camp the patient was unable to greenberg and was just sleeping most of the time. The patient does state that he has got feeling of decreased sensation throughout his body. The patient does have prior history of a back fusion and is scheduled to see Dr. Purcell but has not yet done so. The patient was seen here about 2 weeks ago and did have an MRI of the lumbar spine at that time. Patient denies any bowel or bladder incontinence or retention and no saddle anesthesia. PAST MEDICAL HISTORY: See Below PAST SURGICAL HISTORY: See Below SOCIAL HISTORY: See Below HOME MEDICATIONS: See Below ALLERGIES: See Below VITALS: See Below PHYSICAL EXAMINATION: GENERAL: NAD, non-toxic. EYE EXAM: Normal conjunctiva. PERRL, no anisocoria and EOM's grossly intact w/o pain. OROPHARYNX: Moist mucus membranes, grossly normal dentition. NECK: Supple, no nuchal rigidity, no adenopathy, non-tender. No signs of meningismus. FROM of the neck with good chin to chest and neck extension. No stridor. LUNGS: Clear to auscultation. Normal chest wall mechanics. HEART: NSR, no MRG. ABDOMEN: Abdomen soft, non-tender, no masses, no rebound or guarding. BACK: No CVA TTP. SKIN: No rashes and no bruising. UPPER EXTREMITIES: Upper extremities are grossly normal. LOWER EXTREMITIES: Grossly normal, no edema. NEURO EXAM: A&O x3, cranial nerves II-XII grossly intact, normal speech, moves all 4 extremities but 4-5 strength left lower extremity compared to 5 out of 5 right lower extremity. Paresthesias noted but the patient is sensate to touch in the arms legs and face. Past Med/Surg History Medical History MSSA bacteremia History of pulmonary embolism 1990s Depression Degenerative disc disease s/p cervical fusion Diabetes mellitus, type 2 NIDDM SIDDHARTHA (obstructive sleep apnea) resolved per pt CAD (coronary artery disease) 2007 x 2 stents (LAD, Diagonal) 2012 (PADMINI D1) cardiac stents x3 total (most recent stent 2011) No recent issues GERD (gastroesophageal reflux disease) controlled, stable per pt Myocardial Infarction 2012 > stents Hypertension Hyperlipidemia Surgical History History of reverse total replacement of right shoulder joint Right reverse total shoulder replacement (10/08/21): Glidescope#3, ETT 7.5 + PNB at [facility]. *Difficult airway* per anesthesia record comments. No issues noted per post-op anesthesia progress note. Difficult intubation Right reverse total shoulder replacement (10/08/21): Glidescope#3, ETT 7.5 + PNB at [facility]. *Difficult airway* per anesthesia record comments. No issues noted per post-op anesthesia progress note. History of lumbar fusion 10/04/2020: elective glidescope 3. ETT 8.0. 04/2022 L2-L4 DF with complications d/t infection History of tooth extraction History of repair of rotator cuff right S/P arthroscopy of right shoulder 03/18/19. 02/29/20. LMA#5. History of hip surgery right hip (as a child) History of total knee replacement right knee History of colonoscopy History of esophageal dilatation History of esophagogastroduodenoscopy (EGD) Fusion of spine ACDF C6-C7, C5 corpectomy: 08/08/10: MAC#4, ETT 7.5 at [facility] History of cardiac cath 2007 x 2 stents (LAD, Diagonal) 2011 (PADMINI D1) Family History Father Family history of diabetes mellitus Other No family history of adverse response to anesthesia Social History Smoking Status: Current some day smoker Tobacco Type: Cigarettes Age Started Using Tobacco: 19; Age Quit Using Tobacco: 56; Cigarettes Per Day: 3-4; Second Hand Exposure: No; Do You Dip or Chew Tobacco: No; Hx Alcohol Use: No Hx Substance Use: No Preferred Language: Romansh Communication Ability: Effective Hearing Ability: Normal 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 Beliefs That Will Affect Care: None marital status: Current Living Situation: Spouse Feels Safe at Home: Yes Safety Concerns: Feels Safe At This Time Diet: ideal protein caffeine: Yes during the past year weight has: decreased > 10 lbs Assistive Devices: None Allergies Allergies Allergy/AdvReac Type Severity Reaction Status Date / Time shellfish derived Allergy Severe Throat Verified 02/05/23 12:52 swelling tramadol Allergy Intermediate Hives, Verified 02/05/23 12:52 dizziness, nausea Home Meds Home Medications Medication Instructions Recorded Confirmed amitriptyline 100 mg tablet 100 mg PO HS 02/16/19 02/05/23 atorvastatin 80 mg tablet (Lipitor) 80 mg PO HS 02/16/19 02/05/23 famotidine 20 mg tablet (Pepcid) 20 mg PO BID 02/16/19 02/05/23 metoprolol succinate 25 mg 25 mg PO QAM 02/23/19 02/05/23 tablet,extended release 24 hr (Toprol XL) metformin 1,000 mg tablet 1,000 mg PO BID 02/29/20 02/05/23 melatonin 10 mg tablet 10 mg PO HS 09/07/21 02/05/23 paroxetine HCl 30 mg tablet (Paxil) 30 mg PO QAM 04/05/22 02/05/23 doxycycline monohydrate 100 mg 100 mg PO BID 10/15/22 02/05/23 capsule gabapentin 300 mg capsule 300 mg PO BID 10/15/22 02/05/23 losartan 100 mg tablet 100 mg PO QAM 10/15/22 02/05/23 acetaminophen 500 mg tablet 1,000 - 1,500 mg PO Q8 PRN 02/05/23 02/05/23 (Tylenol Extra Strength) .headache Previous Rx's Medication Instructions Recorded cyclobenzaprine 10 mg tablet 10 mg PO TID PRN muscle spasm #15 05/25/22 tabs aspirin 81 mg tablet,delayed 81 mg PO DAILY #60 tabs 01/15/23 release Results & Data (ED) Vital Signs Vital Signs - 24 hr 02/05/23 11:20 02/05/23 12:12 02/05/23 12:12 Temperature 37.1 C Temperature Source Oral Pulse Rate 79 81 Pulse Rate [Apical] Respiratory Rate 18 Blood Pressure 185/115 H Blood Pressure [Left Arm] Blood Pressure Mean 138 Blood Pressure Mean [Left Arm] Pulse Oximetry 99 99 Oxygen Delivery Method Room Air Sepsis Recent Fever Within 48 Hours No Sepsis New/Unexplained Change in Mental Status No Sepsis Action Taken by Nursing No Action Required 02/05/23 12:43 02/05/23 14:00 02/05/23 14:30 Temperature Temperature Source Pulse Rate Pulse Rate [Apical] 77 Respiratory Rate 18 Blood Pressure 144/82 H Blood Pressure [Left Arm] 156/108 H 143/78 H Blood Pressure Mean 92 Blood Pressure Mean [Left Arm] 124 99 Pulse Oximetry 97 95 Oxygen Delivery Method Room Air Room Air Sepsis Recent Fever Within 48 Hours Sepsis New/Unexplained Change in Mental Status Sepsis Action Taken by Usp Medications Current Medication List: was personally reviewed by me Laboratory Data Attestation: I reviewed the patient's lab results. 02/05/23 12:53 02/05/23 12:53 Lab Results 02/05/23 02/05/23 Range/Units 12:53 12:59 WBC 9.50 (4.8-10.8) K/ul RBC 4.32 L (4.70-6.10) M/uL Hgb 12.8 L (14.0-18.0) g/dl Hct 37.6 L (42.0-52.0) % MCV 87.0 (80.0-100.0) fL MCH 29.6 (25.0-34.0) pg MCHC 34.0 (32.0-36.0) g/dL RDW Std Deviation 42.1 (36.4-46.3) fL RDW Coeff of Padmini 13.2 (11.5-14.5) % Plt Count 234 (130-400) K/uL MPV 10.1 (9.4-12.4) fL Immature Gran % (Auto) 0.4 % Neut % (Auto) 67.8 % Lymph % (Auto) 21.6 % Hudson % (Auto) 6.9 % Eos % (Auto) 2.6 % Baso % (Auto) 0.7 % Neut # (Auto) 6.43 (1.40-6.50) K/uL Lymph # (Auto) 2.05 (1.20-3.40) K/uL Hudson # (Auto) 0.66 H (0.11-0.59) K/uL Eos # (Auto) 0.25 (0.00-0.50) K/uL Baso # (Auto) 0.07 (0.00-0.20) K/uL Immature Gran # (Auto) 0.04 (0.01-0.20) K/uL ESR 13 (0-20) mm/hr Sodium 138 (136-145) mmol/L Potassium 4.0 (3.5-5.1) mmol/L Chloride 107 (98-107) mmol/L Carbon Dioxide 24 (21-32) mmol/L Anion Gap 7 (3-11) BUN 19 (6-23) mg/dl Creatinine 0.89 (0.6-1.4) mg/dl Est Cr Clr Drug Dosing 111.4 ml/min Est GFR ( Amer) 110.0 ml/min Est GFR (Non-Af Amer) 94.9 ml/min BUN/Creatinine Ratio 21.3 H (10-20) Glucose 107 H (70-99(Fasting)) mg/dl Calcium 9.0 (8.6-10.3) mg/dl Phosphorus 3.6 (2.5-4.9) mg/dl Magnesium 2.0 (1.7-2.4) mg/dl Total Bilirubin 0.5 (0.2-1.0) mg/dl AST 21 (13-39) U/L ALT 24 (7-52) U/L Alkaline Phosphatase 136 H (34-104) U/L Total Creatine Kinase 81 (30-223) U/L C-Reactive Protein < 0.50 (0-0.5) mg/dl Total Protein 6.3 (6.0-8.3) gm/dl Albumin 4.0 (3.4-5.0) gm/dl Globulin 2.3 L (2.5-4.0) gm/dl Albumin/Globulin Ratio 1.7 (0.9-2) Procalcitonin < 0.05 (0-0.5) ng/ml TSH 1.170 (0.300-4.500) uIu/ml Administered Medications Discontinued Medications Acetaminophen (Acetaminophen 500 Mg Tab) 1,000 mg PO NOW STA Stop: 02/05/23 12:04 Last Admin: 02/05/23 12:18 Dose: 1,000 mg Documented By: OL Sodium Chloride (Nss) 500 mls @ 999 mls/hr IV .Q31M LATOYA Stop: 02/05/23 12:45 Last Infusion: 02/05/23 13:40 Dose: Infused Documented By: Admin: 02/05/23 12:18 Dose: 999 mls/hr Documented By: OL Sodium Chloride (Nss) 500 mls @ 999 mls/hr IV .Q31M LATOYA Stop: 02/05/23 12:45 Last Infusion: 02/05/23 13:40 Dose: Infused Documented By: Admin: 02/05/23 12:18 Dose: 999 mls/hr Documented By: OL Magnesium Sulfate/Dextrose (Magnesium Sulfate / D5w) 1 gm in 100 mls @ 300 mls/hr IV NOW ONE Stop: 02/05/23 12:22 Last Infusion: 02/05/23 12:40 Dose: Infused Documented By: Admin: 02/05/23 12:18 Dose: 300 mls/hr Documented By: OL Losartan Potassium (Losartan Potassium 50 Mg Tab) 100 mg PO NOW STA Stop: 02/05/23 12:08 Last Admin: 02/05/23 13:27 Dose: 100 mg Documented By: DS Metoprolol Succinate (Metoprolol Succ 50mg Ext Rel Tab) 25 mg PO NOW STA Stop: 02/05/23 12:08 Last Admin: 02/05/23 13:27 Dose: 25 mg Documented By: DS Ondansetron HCl (Ondansetron Inj 2 Mg/Ml 2 Ml Vial) 4 mg IV NOW STA Stop: 02/05/23 12:04 Last Admin: 02/05/23 12:18 Dose: 4 mg Documented By: OL Imaging Data Radiologist's Impression: Head CT 02/05/23 12:03 CT head/brain wo con CLINICAL HISTORY: 57 years-old Male with recent R frontal stroke. Follow-up study in patient with prior infarct TECHNIQUE: Multiple axial CT images of the head were obtained without contrast. A dose lowering technique was utilized adhering to the principles of ALARA. CT DOSE: 703.85 mGy.cm COMPARISON: 01/23/2023, 01/11/2023 FINDINGS: No acute intracranial hemorrhage, midline shift, intracranial mass, hydrocephalus, territorial ischemia or abnormal extra-axial collection. Hypodense focus within the right frontal lobe on image 16 series 2 again noted. Lantigua-white interface is preserved. The calvarium is intact. The paranasal sinuses, mastoid air cells, and middle ear cavities are clear. IMPRESSION: 1. No acute intracranial abnormality. 2. Unchanged appearance of the right frontal lobe subacute to chronic appearing infarct. ACT 112: Negative or not required by law. The above report was generated using voice recognition software. It may contain grammatical, syntax or spelling errors. Electronically signed by: Mike Umaña M.D. 02/05/2023 12:54 PM Chest X-Ray 02/05/23 12:04 SINGLE VIEW CHEST CLINICAL HISTORY: Generalized weakness. FINDINGS: An AP, portable, upright chest radiograph is compared to study dated 01/10/2023. Correlation is made with chest CT dated 11/30/2014. The cardiomediastinal silhouette is top normal for projection. The lungs and pleural spaces are clear. No pneumothorax is seen. The skeletal structures are osteopenic. The bony thorax is grossly intact. A right shoulder arthroplasty is in place. Fusion hardware is seen in the lower cervical spine. IMPRESSION: No active disease in the chest. ACT 112: Negative or not required by law. Electronically signed by: Terrence Chatman M.D. 02/05/2023 12:34 PM Discharge Plan Visit Data Chief Complaint: Weakness Stated Complaint: HEADACHE, NUMBNESS ALL OVER ED Provider: Jaime Staples Discharge Problem: Numbness, Hypertension, History of CVA (cerebrovascular accident), Anemia, Headache Patient Disposition: Admitted As Inpatient Discharge Instructions Interventions: ED Discharge Assessment Last Done: 02/05/23 16:54 Discharge Problem: Hypertension Qualifiers: Hypertension type: unspecified Qualified Code(s): I10 - Essential (primary) hypertension Anemia Qualifiers: Anemia type: unspecified type Qualified Code(s): D64.9 - Anemia, unspecified Headache Qualifiers: Headache type: unspecified Headache chronicity pattern: acute headache I ntractability: intractable Qualified Code(s): R51.9 - Headache, unspecified
[2023-02-05] MEDS ORDERED: MAGNESIUM SULFATE / D5W 1 GM/100 ML BAG IV ONE (12:03)
[2023-02-05] MEDS ORDERED: ONDANSETRON INJ 2 MG/ML 2 ML VIAL IV STA (12:03)
[2023-02-05] MEDS ORDERED: ACETAMINOPHEN 500 MG TAB PO STA (12:03)
[2023-02-05] MEDS ORDERED: LOSARTAN POTASSIUM 50 MG TAB PO STA (12:07)
[2023-02-05] MEDS ORDERED: METOPROLOL SUCC 50MG EXT REL TAB PO STA (12:07)
[2023-02-05] MEDS ORDERED: SODIUM CHLORIDE 0.9% 500 ML IV SCH ×2 (12:15)
--- NOTE | 2023-02-05 12:36 | XRay Report ---
SINGLE VIEW CHEST CLINICAL HISTORY: Generalized weakness. FINDINGS: An AP, portable, upright chest radiograph is compared to study dated 01/10/2023. Correlation is made with chest CT dated 11/30/2014. The cardiomediastinal silhouette is top normal for projection . The lungs and pleural spaces are clear. No pneumothorax is seen. The skeletal structures are osteop enic. The bony thorax is grossly intact. A right shoulder arthroplasty is in place. Fusion hardware i s seen in the lower cervical spine. IMPRESSION: No active disease in the chest. ACT 112: Negative or not required by law. Electronically signed by: Terrence Chatman M.D. 02/05/2023 12:34 PM
--- NOTE | 2023-02-05 12:56 | CT Scan Report ---
CT head/brain wo con CLINICAL HISTORY: 57 years-old Male with recent R frontal stroke. Follow-up study in patient with pr ior infarct TECHNIQUE: Multiple axial CT images of the head were obtained without contrast. A dose lowering tech nique was utilized adhering to the principles of ALARA. CT DOSE: 703.85 mGy.cm COMPARISON: 01/23/2023, 01/11/2023 FINDINGS: No acute intracranial hemorrhage, midline shift, intracranial mass, hydrocephalus, territorial ischem ia or abnormal extra-axial collection. Hypodense focus within the right frontal lobe on image 16 seri es 2 again noted. Lantigua-white interface is preserved. The calvarium is intact. The paranasal sinuses, mastoid air cells, and middle ear cavities are clear. IMPRESSION: 1. No acute intracranial abnormality. 2. Unchanged appearance of the right frontal lobe subacute to chronic appearing infarct. ACT 112: Negative or not required by law. The above report was generated using voice recognition software. It may contain grammatical, syntax o r spelling errors. Electronically signed by: Mike Umaña M.D. 02/05/2023 12:54 PM
[2023-02-05 13:24] LABS: Basophils # (auto) 0.07 K/uL (0.00-0.20); Basophils % (auto) 0.7 %; Eosinophils # (auto) 0.25 K/uL (0.00-0.50); Eosinophils % (auto) 2.6 %; Hematocrit (blood only) 37.6 % (42.0-52.0); Hemoglobin 12.8 g/dl (14.0-18.0); Immature Granulocytes # (auto) 0.04 K/uL (0.01-0.20); Immature Granulocytes % (auto) 0.4 %; Lymphocytes # (auto) 2.05 K/uL (1.20-3.40); Lymphocytes % (auto) 21.6 %; Mean Corpuscular Hemoglobin 29.6 pg (25.0-34.0); Mean Platelet Volume 10.1 fL (9.4-12.4); Monocytes # (auto) 0.66 K/uL (0.11-0.59); Monocytes % (auto) 6.9 %; Neutrophils # (auto) 6.43 K/uL (1.40-6.50); Neutrophils % (auto) 67.8 %; Platelet Count 234 K/uL (130-400); RDW Coefficient of Variation 13.2 % (11.5-14.5); RDW Standard Deviation 42.1 fL (36.4-46.3); Red Blood Count 4.32 M/uL (4.70-6.10)
[2023-02-05 13:35] LABS: Alanine Aminotransferase 24 U/L (7-52); Albumin Globulin Ratio 1.7 (0.9-2); Alkaline Phosphatase 136 U/L (34-104); Anion Gap 7 (3-11); Aspartate Aminotransferase 21 U/L (13-39); BUN Creatinine Ratio 21.3 (10-20); Bilirubin,Total 0.5 mg/dl (0.2-1.0); Blood Urea Nitrogen 19 mg/dl (6-23); Carbon Dioxide 24 mmol/L (21-32); Chloride 107 mmol/L (98-107); Creatinine Clr Calc Pharmacy 111.4 ml/min; Est GFR (Non-African American) 94.9 ml/min; Globulin 2.3 gm/dl (2.5-4.0); Glucose 107 mg/dl (70-99(Fasting)); Phosphorus 3.6 mg/dl (2.5-4.9); Sodium 138 mmol/L (136-145); Total Protein 6.3 gm/dl (6.0-8.3)
--- NOTE | 2023-02-05 14:13 | History & Physical Report ---
Date of Service February 05, 2023 Assessment & Plan (1) Generalized weakness: Plan: Generalized fatigue and weakness associated with going on his Hunting trip with recent CVA and back surgery No change on CT head ?change in sleeping pattern causing worsening neck pain and headache ?iatrogenic - he notes no changes to amitriptyline, oxycodone, Flexeril or gabapentin ?reduction of stimulant - UDS shows decreasing amount of methamphetamine from 01/11 to 01/23 - patient denies any stimulant that can cause this ?infection - do not suspect with normal procalcitonin, CRP, ESR and WBC He was initially supposed to be discharged to [facility] following his stroke but wished to go home, now he wishes to go to inpatient rehabilitation Consult ortho spine to assess his back as he missed follow up for this Consult pain management to optimize his rehabilitation potential as his back pain is the most limiting factor currently PT/OT - essentially admission however for placement given lack of new pathology found. (2) Diabetes mellitus, type 2: Plan: HbA1C 5.9 [01/12/23] Continue metformin (3) History of CVA (cerebrovascular accident): Plan: Residual left sided weakness Continue ASA, atorvastatin (4) CAD (coronary artery disease): Plan: Continue aspirin, atorvastatin, metoprolol, losartan (5) Hypertension: Plan: Continue routine medications (6) Depression: Plan: Continue Paxil (7) Chronic antibiotic suppression: Plan: Continue doxycycline Plan VTE Prophylaxis - Lovenox 40mg SQ daily Diet - heart healthy, T2DM Disposition observation to med/surg Admission and Anticipated Discharge Date Admission Date: February 05, 2023 History of Present Illness Chief Complaint: Generalized weakness Primary Care Provider: Robreto Esposito Kareem Guan is a 57 year old male with recent back surgery and CVA who presents to the ER from his Hunting trip due to generalized weakness. He was recently admitted to [facility] from 01/11 - 01/15 due to stroke causing left sided weakness. Plan was initially for discharge to [facility] for rehabilitation however he elected to go home on day of discharge. He reports doing well up until 01/30 when he went back to [facility]. He reports having a lot of headaches and upper neck pain which has been going on for months and reports he needs surgery for his neck but he has noticed this worse since going to [facility]. He reports his mood is stable and eating and drinking ok. He has mostly been sleeping at [facility] though as he just really isnt feeling like doing anything. He reports his arms are twitching at night. He denies any stimulant use (noted positive on recent drug screen. No significant alcohol intake - may two the whole week he has been there. Weakness is generalized over his whole body but since his stroke he has noticed his left leg is weaker and having difficulty getting into and out of the truck. Allergies Allergy/AdvReac Type Severity Reaction Status Date / Time shellfish derived Allergy Severe Throat Verified 02/05/23 12:52 swelling tramadol Allergy Intermediate Hives, Verified 02/05/23 12:52 dizziness, nausea Home Medications Medication Instructions Recorded Confirmed Type amitriptyline 100 mg tablet 100 mg PO HS 02/16/19 02/05/23 History atorvastatin 80 mg tablet (Lipitor) 80 mg PO HS 02/16/19 02/05/23 History famotidine 20 mg tablet (Pepcid) 20 mg PO BID 02/16/19 02/05/23 History metoprolol succinate 25 mg 25 mg PO QAM 02/23/19 02/05/23 History tablet,extended release 24 hr (Toprol XL) metformin 1,000 mg tablet 1,000 mg PO BID 02/29/20 02/05/23 History melatonin 10 mg tablet 10 mg PO HS 09/07/21 02/05/23 History paroxetine HCl 30 mg tablet (Paxil) 30 mg PO QAM 04/05/22 02/05/23 History cyclobenzaprine 10 mg tablet 10 mg PO TID PRN muscle spasm #15 05/25/22 02/05/23 Rx tabs doxycycline monohydrate 100 mg 100 mg PO BID 10/15/22 02/05/23 History capsule gabapentin 300 mg capsule 300 mg PO BID 10/15/22 02/05/23 History losartan 100 mg tablet 100 mg PO QAM 10/15/22 02/05/23 History aspirin 81 mg tablet,delayed 81 mg PO DAILY #60 tabs 01/15/23 02/05/23 Rx release acetaminophen 500 mg tablet 1,000 - 1,500 mg PO Q8 PRN 02/05/23 02/05/23 History (Tylenol Extra Strength) .headache Past Med/Surg History Medical History MSSA bacteremia History of pulmonary embolism 1990s Depression Degenerative disc disease s/p cervical fusion Diabetes mellitus, type 2 NIDDM SIDDHARTHA (obstructive sleep apnea) resolved per pt CAD (coronary artery disease) 2007 x 2 stents (LAD, Diagonal) 2012 (PADMINI D1) cardiac stents x3 total (most recent stent 2011) No recent issues GERD (gastroesophageal reflux disease) controlled, stable per pt Myocardial Infarction 2012 > stents Hypertension Hyperlipidemia Surgical History History of reverse total replacement of right shoulder joint Right reverse total shoulder replacement (10/08/21): Glidescope#3, ETT 7.5 + PNB at [facility]. *Difficult airway* per anesthesia record comments. No issues noted per post-op anesthesia progress note. Difficult intubation Right reverse total shoulder replacement (10/08/21): Glidescope#3, ETT 7.5 + PNB at [facility]. *Difficult airway* per anesthesia record comments. No issues noted per post-op anesthesia progress note. History of lumbar fusion 10/04/2020: elective glidescope 3. ETT 8.0. 04/2022 L2-L4 DF with complications d/t infection History of tooth extraction History of repair of rotator cuff right S/P arthroscopy of right shoulder 03/18/19. 02/29/20. LMA#5. History of hip surgery right hip (as a child) History of total knee replacement right knee History of colonoscopy History of esophageal dilatation History of esophagogastroduodenoscopy (EGD) Fusion of spine ACDF C6-C7, C5 corpectomy: 08/08/10: MAC#4, ETT 7.5 at [facility] History of cardiac cath 2007 x 2 stents (LAD, Diagonal) 2011 (PADMINI D1) Family History Father Family history of diabetes mellitus Other No family history of adverse response to anesthesia Social History Smoking Status: Current some day smoker Tobacco Type: Cigarettes Age Started Using Tobacco: 19; Age Quit Using Tobacco: 56; Cigarettes Per Day: 3-4; Second Hand Exposure: No; Do You Dip or Chew Tobacco: No; Hx Alcohol Use: No Hx Substance Use: No Preferred Language: Taiwanese Communication Ability: Effective Hearing Ability: Normal Underwater Photographer Required: No Beliefs That Will Affect Care: None marital status: Current Living Situation: Spouse Feels Safe at Home: Yes Safety Concerns: Feels Safe At This Time Diet: ideal protein caffeine: Yes during the past year weight has: decreased > 10 lbs Assistive Devices: None Review of Systems Review of Systems: All systems reviewed & are unremarkable except as noted in HPI & below Physical Exam Constitutional: well developed; + not well nourished and no acute distress Eyes: PERRL, conjunctivae normal, anicteric sclerae ENMT: external ear and nose normal, oropharynx normal Neck: trachea midline, no thyromegaly Respiratory: normal respiratory effort, lungs clear to auscultation Cardiovascular: RRR, no murmur, no edema Gastrointestinal (Abdomen): normal bowel sounds, soft, nontender, no hepatosplenomegaly Skin: no rashes, warm and dry Neurologic: moves all extremities, + focal motor deficit (4/5 LLE hip flex, ankle dorsi/plantar flex, no foot drop) and awake Speech / Cognition: normal speech Motor/Sensory: no tremor and no pronator drift Cranial Nerves: PERRL, EOM intact bilaterally, normal facial strength, able to rotate head bilaterally, able to elevate shoulders bilaterally, no nystagmus and symmetric palate elevation Psychiatric: Orientation: alert and oriented x 3 Eye Contact: good eye contact Motor Behavior: no abnormal motor movements; no psychomotor agitation and n tremor Speech: normal rate/rhythm/volume of speech Affect: euthymic affect Genitourinary: no CVA tenderness Results & Data Results & Data Vital Signs (Past 12 Hours) Vital Signs Temp Pulse Pulse Resp BP BP Pulse Ox 02/05/23 14:00 77 18 143/78 H 95 02/05/23 12:43 156/108 H 97 02/05/23 12:12 99 02/05/23 12:12 81 02/05/23 11:20 37.1 C 79 18 185/115 H 99 O2 Del Method 02/05/23 14:00 Room Air 02/05/23 12:43 Room Air 02/05/23 12:12 Room Air 02/05/23 12:12 02/05/23 11:20 Laboratory Results Abnormal lab results 02/05/23 Range/Units 12:53 RBC 4.32 L (4.70-6.10) M/uL Hgb 12.8 L (14.0-18.0) g/dl Hct 37.6 L (42.0-52.0) % Hill # (Auto) 0.66 H (0.11-0.59) K/uL BUN/Creatinine Ratio 21.3 H (10-20) Glucose 107 H (70-99(Fasting)) mg/dl Alkaline Phosphatase 136 H (34-104) U/L Globulin 2.3 L (2.5-4.0) gm/dl Diagnostic Findings SINGLE VIEW CHEST CLINICAL HISTORY: Generalized weakness. FINDINGS: An AP, portable, upright chest radiograph is compared to study dated 01/10/2023. Correlation is made with chest CT dated 11/30/2014. The cardiomediastinal silhouette is top normal for projection. The lungs and pleural spaces are clear. No pneumothorax is seen. The skeletal structures are osteopenic. The bony thorax is grossly intact. A right shoulder arthroplasty is in place. Fusion hardware is seen in the lower cervical spine. IMPRESSION: No active disease in the chest. CT head/brain wo con CLINICAL HISTORY: 57 years-old Male with recent R frontal stroke. Follow-up study in patient with prior infarct TECHNIQUE: Multiple axial CT images of the head were obtained without contrast. A dose lowering technique was utilized adhering to the principles of ALARA. CT DOSE: 703.85 mGy.cm COMPARISON: 01/23/2023, 01/11/2023 FINDINGS: No acute intracranial hemorrhage, midline shift, intracranial mass, hydrocephalus, territorial ischemia or abnormal extra-axial collection. Hypodense focus within the right frontal lobe on image 16 series 2 again noted. Lantigua-white interface is preserved. The calvarium is intact. The paranasal sinuses, mastoid air cells, and middle ear cavities are clear. IMPRESSION: 1. No acute intracranial abnormality. 2. Unchanged appearance of the right frontal lobe subacute to chronic appearing infarct. Medications Administered ER Medications Given: Normal saline 500ml bolus x2 Magnesium sulfate 1g IV Acetaminophen 1g IV Ondansetron 4mg IV Losartan 100mg PO Metoprolol XL 25mg PO ECG Indication: other (generalized weakness) Rate (beats per minute): 81 Rhythm: normal sinus Comparison ECG Date: from (January 23, 2023) Change: no significant change Code Status & VTE Plan Code Status Full PG Care Time/CCT Total # of Minutes Spent Total Time Spent with Patient: Total time spent is greater than 50% in coordination of care (as documented) at patient's floor/unit and/or counseling patient: Coding Level of Care Code 38409 INT INP/OBS CARE 2MIN Diagnoses Generalized weakness R53.1 Diabetes mellitus, type 2 E11.9 History of CVA (cerebrovascular accident) Z86.73 CAD (coronary artery disease) I25.10 Coronary Disease-Associated Artery/Lesion type: unspecified vessel or lesion type Hypertension I10 Hypertension type: unspecified Depression F32.A Chronic antibiotic suppression Z79.2 (4) CAD (coronary artery disease) Coronary Disease-Associated Artery/Lesion type: unspecified vessel or lesion type (5) Hypertension Hypertension type: unspecified Qualified Code(s): I10 - Essential (primary) hypertension
[2023-02-05 14:43] LABS: C Reactive Protein < 0.50 mg/dl (0-0.5); Creatine Kinase 81 U/L (30-223)
--- NOTE | 2023-02-05 15:41 | Electrocardiogram Report ---
Test Reason : Blood Pressure : / mmHG Vent. Rate : 081 BPM Atrial Rate : 081 BPM P-R Int : 144 ms QRS Dur : 090 ms QT Int : 408 ms P-R-T Axes : 055 061 069 degrees QTc Int : 473 ms Normal sinus rhythm Normal ECG When compared with ECG of 23-JAN-2023 02:47, No significant change was found Confirmed by Bandar Varghese ([id number]) on 02/05/2023 3:41:18 PM Referred By: REFERRED SELF Confirmed By:Noe Varghese
[2023-02-05] MEDS ORDERED: INFLUENZA VIRUS QUADRIVALENT VACCINE (IIV4) 0.5 ML SYR IM ONE (18:12)
[2023-02-05] MEDS: FAMOTIDINE 20 MG TAB PO SCH (20:45)
[2023-02-05] MEDS: MELATONIN 3 MG TAB PO SCH (20:45)
[2023-02-05] MEDS: ACETAMINOPHEN 500 MG TAB PO SCH (20:45)
[2023-02-05] MEDS: oxyCODONE HCL IR 5 MG TAB (IMMEDIATE RELEASE) PO PRN (20:46)
[2023-02-05] MEDS: AMITRIPTYLINE HCL 100 MG TAB PO SCH (21:28)
[2023-02-05] MEDS: ATORVASTATIN 40 MG TAB PO SCH (21:28)
[2023-02-05] MEDS: GABAPENTIN 300 MG CAP PO SCH (21:29)
[2023-02-05] MEDS: DOXYCYCLINE HYCLATE 100 MG CAP PO SCH (21:29)
[2023-02-06 05:55] LABS: Appearance Urine Clear (Clear); Bacteria Urine Automated Negative (Negative); Bilirubin Urine Negative (Negative); Blood Urine Trace (Negative); Cast Urine Automated 0 /lpf (0-5); Color Urine Yellow; Epithelial Cell Urine Auto 0-5 /lpf (0-5); Glucose Urine UA Negative (Negative); Ketones Urine Negative (Negative); Leukocyte Esterase Urine Negative (Negative); Nitrite Urine Negative (Negative); Protein Urine Negative (Negative); RBC Urine Automated 0-4 /hpf (0-4); Specific Gravity Urine 1.009 (1.000-1.030); Urobilinogen Urine Negative (Negative); WBC Urine Automated 0 /hpf (0-5); pH Urine 6.5 (4.5-7.5)
[2023-02-06 06:28] LABS: Amphetamines+Metham, Urine Pos (Neg); Barbiturates, Urine Neg (Neg); Benzodiazepine, Urine Neg (Neg); Cocaine, Urine Neg (Neg); MDMA (Ecstacy), Urine Neg (Neg); Marijuana, Urine Neg (Neg); Methadone, Urine Neg (Neg); Opiate, Urine Neg (Neg); Phencyclidine, Urine Neg (Neg)
--- NOTE | 2023-02-06 07:47 | Hospitalist Progress Note ---
Date of Service February 06, 2023 Assessment & Plan (1) Generalized weakness: Plan: Generalized fatigue and weakness associated with going on his Hunting trip with recent CVA and back surgery Likely secondary to recent stroke and increased back/neck pain Other differentials include; reduction of stimulant - UDS shows decreasing amount of methamphetamine from 01/11 to 01/23 - patient denies any stimulant that can cause this, infection - do not suspect with normal procalcitonin, CRP, ESR and WBC He was initially supposed to be discharged to [facility] following his stroke but wished to go home, now he wishes to go to inpatient rehabilitation Consult ortho spine Consult pain management to optimize his rehabilitation potential as his back pain is the most limiting factor currently PT/OT - essentially admission however for placement given lack of new pathology found. (2) Lumbar radicular pain: Plan: - Ortho spine consulted; XR lumbar spine and MRI cervical spine pending - Pain management consulted and recommending to continue current pain regimen. PT- rehab. (3) Elevated alkaline phosphatase level: Plan: - appears to be chronically elevated - US liver from 05/2022 with Hepatic steatosis - will get fractionated alk phos tomorrow morning (4) Diabetes mellitus, type 2: Plan: HbA1C 5.9 [01/12/23] Continue metformin (5) History of CVA (cerebrovascular accident): Plan: Residual left sided weakness Continue ASA, atorvastatin (6) CAD (coronary artery disease): Plan: Continue aspirin, atorvastatin, metoprolol, losartan (7) Hypertension: Plan: Continue home medications (8) Depression: Plan: Continue Paxil (9) Chronic antibiotic suppression: Plan: Continue doxycycline 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 Gunter. In agreement with the documented findings as noted in the resident documentation with any exceptions or additions as noted here. Resting in bed with stable paresthesias and pain controlled on present regimen. On examination, S1/S2 nl RRR no MCG. CTAB. Abd NT/ND BS+ve VS: 123/77, 60, 16, 36.7C, 94% RA Data: UDS w/ +ve amphetamines Generalized weakness - PT/OT & ortho spine consult Lumbar radicular pain - pain mgmt consult - continue present regimen +ve UDS - h/o false +ve and reports no use. Monitor Else see resident documentation as noted. Subjective Pt seen at bedside this morning. Notes increased left sided LE pain. Also notes increased paresthesia right sided, left sided paresthesias unchanged. Review of Systems Review of Systems: As per above Physical Exam Physical Exam: Constitutional: well-appearing, no acute distress HEENT: NCAT, no conjunctival injection CV: regular rhythm, no murmur appreciated, extremities well-perfused, no LE edema Resp: CTABL, no wheezes/rales/rhonchi appreciated, no increased work of breathing MSK: no gross deformities appreciated Skin: warm, dry, no rash appreciated Neuro: alert, oriented, no focal neurologic deficit appreciated. Strength 5/5 UE and LE B/L. Results & Data Results & Data Vital Signs (Past 12 Hours) Vital Signs Temp Pulse Resp BP Pulse Ox O2 Del Method 02/06/23 07:17 36.5 C 70 16 161/92 H 98 Room Air 02/05/23 20:15 Room Air 02/05/23 20:15 36.9 C 77 18 155/88 H 98 Room Air Resident Activity Tracking Resident Involvement: Resident Care Provided Care Provided: Adult Hospital Medicine (6) CAD (coronary artery disease) Coronary Disease-Associated Artery/Lesion type: unspecified vessel or lesion type (7) Hypertension Hypertension type: unspecified Qualified Code(s): I10 - Essential (primary) hypertension
[2023-02-06] MEDS: oxyCODONE HCL IR 5 MG TAB (IMMEDIATE RELEASE) PO PRN ×3 (07:49→20:52)
[2023-02-06] MEDS: DOXYCYCLINE HYCLATE 100 MG CAP PO SCH ×2 (08:47→20:53)
[2023-02-06] MEDS: GABAPENTIN 300 MG CAP PO SCH ×2 (08:47→20:54)
[2023-02-06] MEDS: metFORMIN HCL 500 MG TAB PO SCH ×2 (08:48→17:03)
[2023-02-06] MEDS: ASPIRIN 81 MG ECTAB PO SCH (08:48)
[2023-02-06] MEDS: ACETAMINOPHEN 500 MG TAB PO SCH ×3 (08:49→20:52)
[2023-02-06] MEDS: FAMOTIDINE 20 MG TAB PO SCH ×2 (08:49→20:56)
[2023-02-06] MEDS: METOPROLOL SUCC 25MG EXT REL TAB PO SCH (08:50)
[2023-02-06] MEDS: PARoxetine HCL 10 MG TAB PO SCH (08:50)
[2023-02-06] MEDS: LOSARTAN POTASSIUM 50 MG TAB PO SCH (08:50)
[2023-02-06] MEDS: ENOXAPARIN INJ 40 MG/0.4 ML SYR SQ SCH (08:51)
--- NOTE | 2023-02-06 08:54 | Orthopedic Consultation ---
Date of Consultation February 06, 2023 Assessment & Plan (1) Generalized weakness: Patient's labs do appear to be stable from an infectious standpoint. I would like to obtain an MRI of the cervical spine and x-rays lumbar spine make further conditions upon review. History of Present Illness Reason for Consultation: Generalized weakness Attending Physician: Bandar Will MD History of Present Illness This is a 57-year-old male Yosef with generalized weakness to the upper extremities. He said worsening bilateral arm numbness and tingling. Denies any recent trauma fall or event. Allergies Allergy/AdvReac Type Severity Reaction Status Date / Time shellfish derived Allergy Severe Throat Verified 02/05/23 12:52 swelling tramadol Allergy Intermediate Hives, Verified 02/05/23 12:52 dizziness, nausea Home Medications Medication Instructions Recorded Confirmed Type amitriptyline 100 mg tablet 100 mg PO HS 02/16/19 02/05/23 History atorvastatin 80 mg tablet (Lipitor) 80 mg PO HS 02/16/19 02/05/23 History famotidine 20 mg tablet (Pepcid) 20 mg PO BID 02/16/19 02/05/23 History metoprolol succinate 25 mg 25 mg PO QAM 02/23/19 02/05/23 History tablet,extended release 24 hr (Toprol XL) metformin 1,000 mg tablet 1,000 mg PO BID 02/29/20 02/05/23 History melatonin 10 mg tablet 10 mg PO HS 09/07/21 02/05/23 History paroxetine HCl 30 mg tablet (Paxil) 30 mg PO QAM 04/05/22 02/05/23 History cyclobenzaprine 10 mg tablet 10 mg PO TID PRN muscle spasm #15 05/25/22 02/05/23 Rx tabs doxycycline monohydrate 100 mg 100 mg PO BID 10/15/22 02/05/23 History capsule gabapentin 300 mg capsule 300 mg PO BID 10/15/22 02/05/23 History losartan 100 mg tablet 100 mg PO QAM 10/15/22 02/05/23 History aspirin 81 mg tablet,delayed 81 mg PO DAILY #60 tabs 01/15/23 02/05/23 Rx release acetaminophen 500 mg tablet 1,000 - 1,500 mg PO Q8 PRN 02/05/23 02/05/23 History (Tylenol Extra Strength) .headache Patient History Medical History MSSA bacteremia History of pulmonary embolism 1990s Depression Degenerative disc disease s/p cervical fusion Diabetes mellitus, type 2 NIDDM SIDDHARTHA (obstructive sleep apnea) resolved per pt CAD (coronary artery disease) 2007 x 2 stents (LAD, Diagonal) 2012 (PADMINI D1) cardiac stents x3 total (most recent stent 2011) No recent issues GERD (gastroesophageal reflux disease) controlled, stable per pt Myocardial Infarction 2012 > stents Hypertension Hyperlipidemia Surgical History History of reverse total replacement of right shoulder joint Right reverse total shoulder replacement (10/08/21): Glidescope#3, ETT 7.5 + PNB at [facility]. *Difficult airway* per anesthesia record comments. No issues noted per post-op anesthesia progress note. Difficult intubation Right reverse total shoulder replacement (10/08/21): Glidescope#3, ETT 7.5 + PNB at [facility]. *Difficult airway* per anesthesia record comments. No issues noted per post-op anesthesia progress note. History of lumbar fusion 10/04/2020: elective glidescope 3. ETT 8.0. 04/2022 L2-L4 DF with complications d/t infection History of tooth extraction History of repair of rotator cuff right S/P arthroscopy of right shoulder 03/18/19. 02/29/20. LMA#5. History of hip surgery right hip (as a child) History of total knee replacement right knee History of colonoscopy History of esophageal dilatation History of esophagogastroduodenoscopy (EGD) Fusion of spine ACDF C6-C7, C5 corpectomy: 08/08/10: MAC#4, ETT 7.5 at [facility] History of cardiac cath 2007 x 2 stents (LAD, Diagonal) 2011 (PADMINI D1) Family History Father Family history of diabetes mellitus Other No family history of adverse response to anesthesia Social History Smoking Status: Current some day smoker Tobacco Type: Cigarettes Age Started Using Tobacco: 19; Age Quit Using Tobacco: 56; Cigarettes Per Day: 3-4; Second Hand Exposure: No; Do You Dip or Chew Tobacco: No; Hx Alcohol Use: No Hx Substance Use: No Preferred Language: Micronesian Communication Ability: Effective Hearing Ability: Normal [place] Pilot Required: No Beliefs That Will Affect Care: None marital status: Current Living Situation: Spouse Feels Safe at Home: Yes Safety Concerns: Feels Safe At This Time Diet: ideal protein caffeine: Yes during the past year weight has: decreased > 10 lbs Assistive Devices: None Physical Exam Physical Exam: On exam this morning he is lying in bed does appear comfortable. His regional strength testing upper lower extremities. Results & Data Vital Signs (Past 12 Hours) Vital Signs Temp Pulse Resp BP Pulse Ox O2 Del Method 02/06/23 08:46 72 135/80 02/06/23 07:17 36.5 C 70 16 161/92 H 98 Room Air
--- NOTE | 2023-02-06 09:02 | Pain Management Consultation ---
Date of Consultation February 06, 2023 Assessment & Plan (1) Generalized weakness: Recommend physical therapy. He is agreeable to go to a rehab facility upon discharge. (2) History of CVA (cerebrovascular accident): (3) Positive urine drug screen: Patient has been positive for methamphetamines in the last 3 urine drug screens this month. Patient denies any use. (4) Chronic back pain: Currently he is utilizing gabapentin 300 mg twice daily and oxycodone 10 mg every 6 hours if needed. No interventional procedures to offer the patient at this time. Recommend physical therapy and discharged to rehab facility. Patient is in agreement with this. Back pain laterality: unspecified Back pain location: back pain in unspecified location Qualified Code(s): M54.9 - Dorsalgia, unspecified; G89.29 - Other chronic pain History of Present Illness Reason for Consultation: Back pain Attending Physician: Bandar Will MD History of Present Illness Mr. Guan is a 57-year-old male that presented to the emergency department for weakness, sleepiness, and headache. He did have a recent frontal lobe stroke on 01/08/23. He does also have a significant history of #[address] Purcell. He did have complications of postoperative lumbar hematoma and epidural abscess that required debridement and antibiotic bead placement. Currently he does have L2-S1 fusion at this time. Most recent surgery was 10/29/22. He has been struggling with leg weakness and intermittent sharp pains along the left anterior thigh. There is a spasming sensation along the left hip/buttock area. He is currently receiving amitriptyline 100 mg at bedtime, gabapentin 300 mg twice daily, and taking oxycodone 10 mg every 6 hours if needed. No bowel/bladder incontinence, saddle anesthesia, foot drop, falls. Case discussed with Dr. Tracy Payton Allergies Allergy/AdvReac Type Severity Reaction Status Date / Time shellfish derived Allergy Severe Throat Verified 02/05/23 12:52 swelling tramadol Allergy Intermediate Hives, Verified 02/05/23 12:52 dizziness, nausea Home Medications Medication Instructions Recorded Confirmed Type amitriptyline 100 mg tablet 100 mg PO HS 02/16/19 02/05/23 History atorvastatin 80 mg tablet (Lipitor) 80 mg PO HS 02/16/19 02/05/23 History famotidine 20 mg tablet (Pepcid) 20 mg PO BID 12/10/19 11/29/23 History metoprolol succinate 25 mg 25 mg PO QAM 02/23/19 02/05/23 History tablet,extended release 24 hr (Toprol XL) metformin 1,000 mg tablet 1,000 mg PO BID 02/29/20 02/05/23 History melatonin 10 mg tablet 10 mg PO HS 09/07/21 02/05/23 History paroxetine HCl 30 mg tablet (Paxil) 30 mg PO QAM 04/05/22 02/05/23 History cyclobenzaprine 10 mg tablet 10 mg PO TID PRN muscle spasm #15 05/25/22 02/05/23 Rx tabs doxycycline monohydrate 100 mg 100 mg PO BID 10/15/22 02/05/23 History capsule gabapentin 300 mg capsule 300 mg PO BID 10/15/22 02/05/23 History losartan 100 mg tablet 100 mg PO QAM 10/15/22 02/05/23 History aspirin 81 mg tablet,delayed 81 mg PO DAILY #60 tabs 01/15/23 02/05/23 Rx release acetaminophen 500 mg tablet 1,000 - 1,500 mg PO Q8 PRN 02/05/23 02/05/23 History (Tylenol Extra Strength) .headache Patient History Medical History MSSA bacteremia History of pulmonary embolism 1990s Depression Degenerative disc disease s/p cervical fusion Diabetes mellitus, type 2 NIDDM SIDDHARTHA (obstructive sleep apnea) resolved per pt CAD (coronary artery disease) 2006 x 2 stents (LAD, Diagonal) 2011 (PADMINI D1) cardiac stents x3 total (most recent stent 2011) No recent issues GERD (gastroesophageal reflux disease) controlled, stable per pt Myocardial Infarction 2012 > stents Hypertension Hyperlipidemia Surgical History History of reverse total replacement of right shoulder joint Right reverse total shoulder replacement (10/08/21): Glidescope#3, ETT 7.5 + PNB at [facility]. *Difficult airway* per anesthesia record comments. No issues noted per post-op anesthesia progress note. Difficult intubation Right reverse total shoulder replacement (10/08/21): Glidescope#3, ETT 7.5 + PNB at [facility]. *Difficult airway* per anesthesia record comments. No issues noted per post-op anesthesia progress note. History of lumbar fusion 10/04/2020: elective glidescope 3. ETT 8.0. 04/2022 L2-L4 DF with complications d/t infection History of tooth extraction History of repair of rotator cuff right S/P arthroscopy of right shoulder 03/18/19. 02/29/20. LMA#5. History of hip surgery right hip (as a child) History of total knee replacement right knee History of colonoscopy History of esophageal dilatation History of esophagogastroduodenoscopy (EGD) Fusion of spine ACDF C6-C7, C5 corpectomy: 08/08/10: MAC#4, ETT 7.5 at [facility] History of cardiac cath 2006 x 2 stents (LAD, Diagonal) 2011 (PADMINI D1) Family History Father Family history of diabetes mellitus Other No family history of adverse response to anesthesia Social History Smoking Status: Current some day smoker Tobacco Type: Cigarettes Age Started Using Tobacco: 19; Age Quit Using Tobacco: 56; Cigarettes Per Day: 3-4; Second Hand Exposure: No; Do You Dip or Chew Tobacco: No; Hx Alcohol Use: No Hx Substance Use: No Preferred Language: Chinese Communication Ability: Effective Hearing Ability: Normal 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 Flat affect. HEAD/FACE: Normocephalic and atraumatic. EYES: No drainage or conjunctival injection. ENT: Nose without bleeding or discharge. Oral mucosa moist. NECK: Full ROM without apparent pain. No swelling or masses noted. RESPIRATORY: Patient with unlabored breathing. No signs of respiratory distress. CHEST/AXILLA: Chest movement symmetrical. No deformities noted. ABDOMEN/GI: No distension BACK: Well-healed surgical incision along the lumbar midline. Moves without difficulty. There is mild tenderness along the lumbosacral junction. Mild myofascial spasm along the left superior gluteal musculature. No trigger points noted. SKIN: [place], warm and dry. No rash noted. MS/EXTREMITY: There is 3/5 strength with left hip flexion, 4/5 strength with right hip flexion, 5/5 strength otherwise of the lower extremities. NEURO: Alert and appears oriented. Speech is fluent. Cranial Nerves are grossly intact. PSYCH: Alert, pleasant, affect is calm Results (Pain Clinic) Diagnostic Review MRI Findings: Exam(s): MRI L SPINE Without Contrast EXAM: MR Lumbar Spine Without Intravenous Contrast CLINICAL HISTORY: Reason for exam: new left hip and thigh radic, h/o epidural abscess. TECHNIQUE: Magnetic resonance images of the lumbar spine without intravenous contrast in multiple planes. COMPARISON: No relevant prior studies available. FINDINGS: Vertebrae: Patient is status post L2-L5 posterior spinal fusion hardware with interval advancement from prior study dated October 15, 2022. Associated laminectomy changes Within the operative bed is fluid with fluid collection measuring up to 1.2 x 4.7 x 1.5 cm. This may be sterile or infected. Spinal cord: Unremarkable. Normal signal. Soft tissues: Unremarkable. DISCS/SPINAL CANAL/NEURAL FORAMINA: L1-L2: 6 mm disc bulge with 6 cm of anterolisthesis of L1 on L2. Mild spinal canal stenosis measuring 8 mm. Mild bilateral neuroforaminal stenosis. Anterior osteophytes noted. Moderate facet arthropathy. L2-L3: Fusion changes. No spinal canal stenosis. Mild left and severe right neuroforaminal stenosis. L3-L4: Fusion changes. Moderate spinal canal stenosis measuring 8 mm. Mild right and severe left neuroforaminal stenosis. L4-L5: Fusion changes. No spinal canal stenosis. No left and severe right neuroforaminal stenosis. L5-S1: Fusion changes. Mild spinal canal stenosis measuring 1.0 cm. Severe right and severe left neuroforaminal stenosis. IMPRESSION: 1. If there is further concern for epidural abscess, recommend postcontrast imaging. 2. Patient is status post L2-L5 posterior spinal fusion hardware with interval advancement from prior study dated October 15, 2022. Associated laminectomy changes Within the operative bed is fluid with fluid collection measuring up to 1.2 x 4.7 x 1.5 cm. This may be sterile or infected. 3. Changes as described level by level. Electronically signed by: Kory Torres MD 01/23/23 05:59 AM
[2023-02-06] MEDS ORDERED: LORazepam 0.5 MG TAB PO PRN (09:21)
--- NOTE | 2023-02-06 14:59 | XRay Report ---
LUMBAR SPINE 3 VIEWS CLINICAL HISTORY: Postoperative examination. Low back pain. FINDINGS: 3 standing views of the lumbar spine are compared to study dated 07/05/2020 and correlated w ith the CT scan of the lumbar spine dated 01/11/2023. The skeletal structures are well-mineralized. Ve rtebral body height is maintained throughout the lumbar spine. There is minimal retrolisthesis at L2- L3. Alignment is otherwise preserved. There is straightening of the lumbar lordosis. Anterior and lat eral marginal osteophytes are seen throughout. There has been discectomy at all lumbar levels between L2-L3 and L5-S1 with laminectomy and posterior fusion at L2-S1. Interpedicular screws are present at all levels. The orthopedic hardware appears intact. The transverse processes are grossly intact. The visualized bony pelvis appears maintained. Mild degenerative sclerosis is noted in the sacroiliac curt ints. There is no bowel obstruction. IMPRESSION: 1. No acute bony abnormality is seen involving the lumbar spine. 2. Extensive postsurgical change as above. Dictated: 02/06/2023 1:32 PM Transcribed: 02/06/2023 1:48 PM August [id number] [email or web address] Electronically signed by: Terrence Chatman M.D. 02/06/2023 2:58 PM
--- NOTE | 2023-02-06 16:33 | Magnetic Resonance Report ---
MRI OF THE CERVICAL SPINE WITHOUT IV CONTRAST CLINICAL HISTORY: Left upper extremity pain and numbness. Neck pain. COMPARISON STUDY: MRI of the cervical spine dated 05/22/2021. CT of the cervical spine dated 01/11/2023 . TECHNIQUE: MRI of the cervical spine is performed utilizing various T1 and T2-weighted sequences in t he axial and sagittal planes. IV contrast was not administered for this examination. The examination is degraded by motion artifact, as well as by susceptibility-artifact from metallic spinal hardware. FINDINGS: Cervical spine: There is postsurgical change from corpectomy at C5 with anterior fusion at C4-C7. The re is straightening of the cervical lordosis. Vertebral body height and alignment appear maintained t hroughout the cervical spine. The spinous processes appear intact. The atlantodental articulation is preserved noting productive degenerative change. There is chronic degenerative endplate change and en dplate edema at C2-C3 and C3-C4, as well as in the upper thoracic region at T1-T2. There is no eviden ce of destructive bony lesion. Intervertebral discs: There has been discectomy at all cervical levels between C4-C5 and C6-C7. Disc desiccation is seen at the remaining cervical levels. There is severe loss of height at C3-C4 and C7- T1, and [id number] loss of height at C2-C3. Spinal cord: The cervical cord is normal in morphology and signal intensity. C2-C3: A posterior disc osteophyte complex minimally effaces the ventral subarachnoid space. There is a large right lateral disc bulge seen on axial image #13. In conjunction with facet arthropathy, the re is [id number] right neural foraminal stenosis with probable impingement on the exiting rig ht C3 nerve root. Facet arthropathy on the left contributes to minimal neural foraminal narrowing. C3-C4: A posterior disc osteophyte complex effaces the ventral cord. The minimum AP canal diameter me asures up to 7 mm. Lateral disc bulge is seen bilaterally. In conjunction with facet arthropathy, the re is severe right and [id number] left neural foraminal stenosis. This likely impinges on the exiting right C4 nerve root. This may also impinge on the exiting left C4 nerve root. C4-C5: The central canal appears clear. Uncovertebral and facet arthropathy contribute to moderate ri ght and mild left neural foraminal stenosis. C5-C6: The central canal appears clear. Uncovertebral and facet arthropathy contribute to moderate-to -severe left greater than right neural foraminal stenosis. This may impinge on the exiting left C6 ne rve root. C6-C7: The central canal is clear. Uncovertebral and facet arthropathy contribute to [id number]-[id number] re left and moderate right neural foraminal stenosis. This may impinge on the exiting left C7 nerve r oot. C7-T1: A posterior disc bulge eccentric to the left abuts the ventral cord. Prominent facet arthropat hy contributes to lmjz-cz-mampoqom bilateral neural foraminal stenosis. T1-T2: A large posterior disc extrusion is seen eccentric to the left and minimally effaces the ventr al cord. This is best seen on axial image #122. A large left lateral disc bulge contributes to at [address] st moderate left neural foraminal stenosis and may impinge on the exiting left T1 nerve root. Soft tissues: The paravertebral and paraspinous soft tissues are within normal limits. Brain parenchyma: The visualized brain parenchyma at the skull base is normal in appearance. IMPRESSION: 1. Multilevel cervical spondylosis and postsurgical change as above. See discussion for detailed leve l by level analysis. 2. The cervical cord is normal in morphology and signal intensity. 3. Degenerative disc disease with associated endplate edema. 4. No destructive bony process is seen. Dictated: 02/06/2023 2:11 PM Transcribed: 02/06/2023 2:50 PM August [id number] [email or web address] Electronically signed by: Terrence Chatman M.D. 02/06/2023 4:30 PM
[2023-02-06] MEDS: AMITRIPTYLINE HCL 100 MG TAB PO SCH (20:54)
[2023-02-06] MEDS: ATORVASTATIN 40 MG TAB PO SCH (20:54)
[2023-02-06] MEDS: MELATONIN 3 MG TAB PO SCH (20:57)
[2023-02-07 07:16] LABS: Basophils # (auto) 0.07 K/uL (0.00-0.20); Basophils % (auto) 0.9 %; Eosinophils # (auto) 0.35 K/uL (0.00-0.50); Eosinophils % (auto) 4.6 %; Hematocrit (blood only) 37.8 % (42.0-52.0); Immature Granulocytes # (auto) 0.04 K/uL (0.01-0.20); Immature Granulocytes % (auto) 0.5 %; Lymphocytes # (auto) 2.33 K/uL (1.20-3.40); Lymphocytes % (auto) 30.5 %; Mean Corpuscular Hemoglobin 30.3 pg (25.0-34.0); Mean Corpuscular Hgb Conc 34.4 g/dL (32.0-36.0); Mean Corpuscular Volume 88.1 fL (80.0-100.0); Mean Platelet Volume 9.7 fL (9.4-12.4); Monocytes # (auto) 0.69 K/uL (0.11-0.59); Neutrophils # (auto) 4.15 K/uL (1.40-6.50); Neutrophils % (auto) 54.5 %; Platelet Count 216 K/uL (130-400); RDW Coefficient of Variation 13.4 % (11.5-14.5); RDW Standard Deviation 43.3 fL (36.4-46.3); Red Blood Count 4.29 M/uL (4.70-6.10); White Blood Count 7.63 K/ul (4.8-10.8)
[2023-02-07 07:39] LABS: Albumin Globulin Ratio 1.7 (0.9-2); Albumin Level 3.8 gm/dl (3.4-5.0); BUN Creatinine Ratio 14.3 (10-20); Bilirubin,Total 0.4 mg/dl (0.2-1.0); Calcium 8.7 mg/dl (8.6-10.3); Creatinine Clr Calc Pharmacy 101.2 ml/min; Est GFR (African American) 98.8 ml/min; Est GFR (Non-African American) 85.2 ml/min; Globulin 2.2 gm/dl (2.5-4.0); Magnesium 1.8 mg/dl (1.7-2.4); Potassium 4.5 mmol/L (3.5-5.1)
--- NOTE | 2023-02-07 07:42 | Hospitalist Progress Note ---
Date of Service February 07, 2023 Assessment & Plan (1) Generalized weakness: Plan: Generalized fatigue and weakness associated with going on his Hunting trip with recent CVA and back surgery Likely secondary to recent stroke and increased back/neck pain Other differentials include; reduction of stimulant - UDS shows decreasing amount of methamphetamine from 01/11 to 01/23 - patient denies any stimulant that can cause this, infection - do not suspect with normal procalcitonin, CRP, ESR and WBC He was initially supposed to be discharged to [facility] following his stroke but wished to go home, now he wishes to go to inpatient rehabilitation Consult ortho spine Consult pain management to optimize his rehabilitation potential as his back pain is the most limiting factor currently PT/OT - essentially admission however for placement given lack of new pathology found. (2) Lumbar radicular pain: Plan: - Ortho spine consulted; XR lumbar spine and MRI cervical spine pending - Pain management consulted and recommending to continue current pain regimen. PT- rehab. (3) Elevated alkaline phosphatase level: Plan: - appears to be chronically elevated - US liver from 05/2022 with Hepatic steatosis - will get fractionated alk phos tomorrow morning (4) Diabetes mellitus, type 2: Plan: HbA1C 5.9 [01/12/23] Continue metformin (5) History of CVA (cerebrovascular accident): Plan: Residual left sided weakness Continue ASA, atorvastatin (6) CAD (coronary artery disease): Plan: Continue aspirin, atorvastatin, metoprolol, losartan (7) Hypertension: Plan: Continue home medications (8) Depression: Plan: Continue Paxil (9) Chronic antibiotic suppression: Plan: Continue doxycycline 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 Plan VTE Prophylaxis - Lovenox 40mg SQ daily Diet - heart healthy, T2DM Disposition observation to med/surg Admission and Anticipated Discharge Date Admission Date: February 05, 2023 Review of Systems Review of Systems: As per above Physical Exam Physical Exam: Constitutional: well-appearing, no acute distress HEENT: NCAT, no conjunctival injection CV: regular rhythm, no murmur appreciated, extremities well-perfused, no LE edema Resp: CTABL, no wheezes/rales/rhonchi appreciated, no increased work of breathing MSK: no gross deformities appreciated Skin: warm, dry, no rash appreciated Neuro: alert, oriented, no focal neurologic deficit appreciated. Strength 5/5 UE and LE B/L. Results & Data Results & Data Vital Signs (Past 12 Hours) Vital Signs Temp Pulse Resp BP Pulse Ox O2 Del Method 02/07/23 07:09 36.5 C 63 14 129/80 100 Room Air 02/06/23 20:51 36.6 C 69 18 131/81 98 Room Air (6) CAD (coronary artery disease) Coronary Disease-Associated Artery/Lesion type: unspecified vessel or lesion type (7) Hypertension Hypertension type: unspecified Qualified Code(s): I10 - Essential (primary) hypertension
[2023-02-07] MEDS: METOPROLOL SUCC 25MG EXT REL TAB PO SCH (08:23)
[2023-02-07] MEDS: GABAPENTIN 300 MG CAP PO SCH (08:23)
[2023-02-07] MEDS: PARoxetine HCL 10 MG TAB PO SCH (08:23)
[2023-02-07] MEDS: LOSARTAN POTASSIUM 50 MG TAB PO SCH (08:23)
[2023-02-07] MEDS: metFORMIN HCL 500 MG TAB PO SCH (08:23)
[2023-02-07] MEDS: oxyCODONE HCL IR 5 MG TAB (IMMEDIATE RELEASE) PO PRN (08:23)
[2023-02-07] MEDS: DOXYCYCLINE HYCLATE 100 MG CAP PO SCH (08:23)
[2023-02-07] MEDS: ASPIRIN 81 MG ECTAB PO SCH (08:23)
[2023-02-07] MEDS: FAMOTIDINE 20 MG TAB PO SCH (08:24)
[2023-02-07] MEDS: ACETAMINOPHEN 500 MG TAB PO SCH ×2 (08:24→14:19)
[2023-02-07] MEDS: ENOXAPARIN INJ 40 MG/0.4 ML SYR SQ SCH (08:24)
--- NOTE | 2023-02-07 10:57 | Orthopedic Progress Note ---
Date of Service February 07, 2023 Assessment & Plan (1) Generalized weakness: Plan: MRI and x-rays were reviewed. MRI of the cervical spine does demonstrate evidence of neuroforaminal disease at multiple levels adjacent to his previous fusion. There is however no gross cord compression or urgency for surgery. Clearly in light of his health history we are not anxious for any surgical intervention. X-ray lumbar spine demonstrate instrumentation in place. Plan at this time he is to return home undergo light activity as tolerated with no more than 10 pounds and follow-up in our office as scheduled. Admission and Anticipated Discharge Date Admission Date: February 05, 2023 Subjective Patient's pain is improved. He feels more functional. He has been up and ambulating. Physical Exam Physical Exam: On exam he has good strength testing upper and lower extremities. Is comfortable. Results & Data Vital Signs (Past 12 Hours) Vital Signs Temp Pulse Resp BP Pulse Ox O2 Del Method 02/07/23 07:09 36.5 C 63 14 129/80 100 Room Air
--- NOTE | 2023-02-07 13:36 | Discharge Summary ---
Date of Service February 07, 2023 Admission HPI Per Admitting Provider Kareem Guan is a 57 year old male with recent back surgery and CVA who presents to the ER from his Hunting trip due to generalized weakness. He was recently admitted to [facility] from 01/11 - 01/15 due to stroke causing left sided weakness. Plan was initially for discharge to [facility] for rehabilitation however he elected to go home on day of discharge. He reports doing well up until 01/30 when he went back to [facility]. He reports having a lot of headaches and upper neck pain which has been going on for months and reports he needs surgery for his neck but he has noticed this worse since going to [facility]. He reports his mood is stable and eating and drinking ok. He has mostly been sleeping at [facility] though as he just really isnt feeling like doing anything. He reports his arms are twitching at night. He denies any stimulant use (noted positive on recent drug screen. No significant alcohol intake - may two the whole week he has been there. Weakness is generali zed over his whole body but since his stroke he has noticed his left leg is weaker and having difficulty getting into and out of the truck. Principal Diagnosis Lumbar Radiculopathy Discharge Exam Constitutional: well-appearing, no acute distress HEENT: NCAT, no conjunctival injection CV: regular rhythm, no murmur appreciated, extremities well-perfused, no LE edema Resp: CTABL, no wheezes/rales/rhonchi appreciated, no increased work of breathing MSK: no gross deformities appreciated Skin: warm, dry, no rash appreciated Neuro: alert, oriented, no focal neurologic deficit appreciated. Strength 5/5 UE and LE B/L. Discharge Data Allergies Allergy/AdvReac Type Severity Reaction Status Date / Time shellfish derived Allergy Severe Throat Verified 02/05/23 12:52 swelling tramadol Allergy Intermediate Hives, Verified 02/05/23 12:52 dizziness, nausea Consultations 02/05/23 14:02 ED Decision to Admit Stat 02/05/23 22:49 Consult Orthopedic Spine Surgery Routine Consult Pain Management Routine Ordered Studies 02/05/23 12:03 CT head/brain wo con Stat 02/06/23 08:51 MR cervical spine wo con Urgent Hospital Course (1) Generalized weakness: Generalized weakness: Generalized fatigue and weakness associated with going on his Hunting trip with recent CVA and back surgery Likely secondary to recent stroke and increased back/neck pain Other differentials include; reduction of stimulant - UDS shows decreasing amount of methamphetamine from 01/11 to 01/23 - patient denies any stimulant that can cause this, infection - do not suspect with normal procalcitonin, CRP, ESR and WBC Did well with PT/OT; recommend home with continued PT. Lumbar radicular pain: - Ortho spine consulted; XR lumbar spine and MRI cervical spine without acute change - Pain management consulted and recommending to continue current pain regimen. - Has f/u with Dr. Purcell later this month - light activity as tolerated with no more than 10 pounds Elevated alkaline phosphatase level: - appears to be chronically elevated - US liver from 05/2022 with Hepatic steatosis - fractionated alk phos still pending at d/c Diabetes mellitus, type 2: HbA1C 5.9 [01/12/23] Continue metformin History of CVA (cerebrovascular accident): Residual left sided weakness Continue ASA, atorvastatin CAD (coronary artery disease): Continue aspirin, atorvastatin, metoprolol, losartan Hypertension: Continue home medications Depression: Continue Paxil Chronic antibiotic suppression: Continue doxycycline 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 (2) Elevated alkaline phosphatase level: (3) Diabetes mellitus, type 2: (4) History of CVA (cerebrovascular accident): (5) CAD (coronary artery disease): (6) Hypertension: (7) Depression: (8) Chronic antibiotic suppression: Total Time Total Time Spent Total Time Spent (In Minutes): See attending attestation Discharge Plan Discharge Items Patient Disposition: Home - Self-Care Reason For Visit: GENERALIZED WEAKNESS Discharge Diagnosis: Lumbar Radiculopathy Activity: Per Instructions section Non-emergency contact: Primary Care Provider and Surgeon Call non-emergency contact if: you have any medication questions and your symptoms worsen Follow-up/Referrals: Roberto Esposito [Primary Care Provider] - 02/17/23 2:05 pm Diet: Regular Addtl Attending Provider Instructions: You were admitted for increased pain/weakness. There were so signs of infection of your labs. Dr. Purcell saw you and ordered repeat imaging that did not show any acute issues that would require surgery urgently. You should following up with him as already scheduled for this month. We did not make any changes to your mediations. Dr. Purcell is recommending light activity as tolerated with no more than 10 pounds. Pending Studies at Discharge: Yes Studies:: Alk Phos Isoenzymes Stand-Alone Forms: My [facility], Smoking Cessation Medications and DC Order Prescriptions: Continued atorvastatin [Lipitor] 80 mg Tablet 80 mg PO HS famotidine [Pepcid] 20 mg Tablet 20 mg PO BID amitriptyline 100 mg Tablet 100 mg PO HS metoprolol succinate [Toprol XL] 25 mg Tablet Extended Release 24 Hr 25 mg PO QAM metformin 1,000 mg Tablet 1,000 mg PO BID cyclobenzaprine 10 mg Tablet 10 mg PO TID PRN (Reason: muscle spasm) Qty: 15 0RF doxycycline monohydrate 100 mg capsule 100 mg PO BID gabapentin 300 mg capsule 300 mg PO BID losartan 100 mg tablet 100 mg PO QAM melatonin 10 mg Tablet 10 mg PO HS paroxetine HCl [Paxil] 30 mg Tablet 30 mg PO QAM aspirin 81 mg Tablet,Delayed Release (Dr/Ec) 81 mg PO DAILY Qty: 60 6RF acetaminophen [Tylenol Extra Strength] 500 mg Tablet 1,000 - 1,500 mg PO Q8 PRN (Reason: .headache) Discharge Orders: Discharge Order (Routine); Ordered 02/07/23 Ordered By: Kathleen Gunter Admission Data Admit Date/Time: 02/05/23 14:40 Attending Provider: Badnar Will Admit Provider: Enrrique Laureano Primary Care Provider: Roberto Esposito Other Providers: Enrrique Laureano; Mynor Purcell; Addi Redman; [facility] Other Interventions: Discharge Summary Assessment (RN) Last Done: 02/07/23 15:10 Supervising Physician Co-Signing Physician Notes Attending attestation Pt seen and examined in concert with Dr. Gunter. In agreement with the docu mented findings as noted in the resident documentation with any exceptions or additions as noted here. Resting in bed with pain controlled on present regimen. On examination, S1/S2 nl RRR no MCG. CTAB. Abd NT/ND BS+ve VS: 151/95, 75, 15, 36.7C, 98 RA Data: (previous) UDS w/ +ve amphetamines Generalized weakness - PT/OT & ortho spine consult - patient discharged to home for outpatient follow up with current care team and supportive care +ve UDS - h/o previous +ve and reports no use Else see resident documentation as noted. Total attending physician time spent with this patient's care on the day of discharge: 20 minutes. Resident Activity Tracking Resident Involvement: Resident Care Provided Care Provided: Adult Hospital Medicine
[2023-02-08 15:07] LABS: Amphetamine Urine, Confirm NEGATIVE ng/mL (<250); Methamphetamine, Ur Confirm 1377 ng/mL (<250)
== END 2023-02-07 19:00 | disposition home or self-care (01) ==
LOC: EDINP 11:10 → ED 11:10 → SUATTDRO 14:40 → 3W 16:54